=== PATIENT | female | born 1950 | race Caucasian/White ===

== ENCOUNTER → 2017-01-31 | Outpatient (CLI) | payer MEDICARE, BC ==
[~2017-01-31] MED LIST: AMLO1TAB36 PO; ATOR1TAB19 PO; BUPR150T3 PO; BYDU1INJ SC; CARV12.5 PO; CARV6.25 PO; CIPR500T89 PO; COLA100C3 PO; COUM1TAB17 PO; FENO160T10 PO; FISH5CAP PO; FLAG500T PO; FLON1SPR; LOVE0.6I2 SC; METF500T PO; METO50TA2 PO; OMEP40CA2 PO; PERC5TAB6 PO; PROP15TA PO; WARF-18 PO
--- NOTE | 2017-01-31 13:19 | REP ---
Right hand four views: There are no comparisons. There is diffuse demineralization. 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 There is moderate osteoarthritis at the thumb C-MC articulation. There is mild joint space narrowing of the MCP articulations compatible with articular cartilage atrophy. There is no cortical erosion or eburnation. There are surgical clips in the soft tissues lateral to the radial head. There is no fracture or dislocation. Impression: Osteoarthritis as described. Signed by Danny Ellis MD 01/31/2017 01:10 P
== END ==
LOC: M SMT 11:13
PROVIDERS: ATTEND Physician Assistant
DX: S63.601A Unspecified sprain of right thumb, initial encounter (principal); X58.XXXA Exposure to other specified factors, initial encounter; Y92.89 Other specified places as the place of occurrence of the external cause; Y93.9 Activity, unspecified; Y99.9 Unspecified external cause status

== ENCOUNTER → 2017-04-21 | Day surgery (SDC) | payer MEDICARE, BC ==
[~2017-04-21] VITALS: Ht 167.6 cm; Wt 81.6 kg
[~2017-04-21] MED LIST changes: +AMOX875T2 PO; +BUPIVACAINE HCL 0.25% 30 ML VIAL As Ordered ONE; +FERR325T PO; +GLYCOPYRROLATE INJ 0.2 MG/ML 2 ML VIAL As Ordered ONE; +HYDROmorphone HCL 1 MG/ML SYRINGE (J1170) IV PRN; +HYDROmorphone HCL 2 MG/ML 1ML VIAL (J1170) As Ordered ONE; +JANU25TA PO; +LIDOCAINE 2% INJ 100 MG/5 ML SDV (FOR ANES.) As Ordered ONE; +LOSA50TA20 PO; +LR 1,000 ML IV SCH; +METOCLOPRAMIDE INJ 10MG/2ML VIAL (J2765) As Ordered ONE; +METOCLOPRAMIDE INJ 10MG/2ML VIAL (J2765) IV PRN; +MIDAZOLAM INJ 2 MG/2 ML VIAL (J2250) As Ordered ONE; +MIRA3350 PO; +NEOSTIGMINE 1MG/ML 5 ML SYRINGE (J2710) As Ordered ONE; +NEPHTAB PO; +NORCO, ANEXSIA 5/325MG TABLET (HYDROcodone/ACETAMINOPHEN) PO PRN; +NORCOTAB PO; +NS 1,000 ML IV SCH; +ONDANSETRON 4MG/2ML VIAL (J2405) As Ordered ONE; +ONDANSETRON 4MG/2ML VIAL (J2405) IV PRN; +PROPOFOL 200 MG/20 ML VIAL As Ordered ONE; +RALO1TAB PO; +ROCURONIUM BROMIDE 50 MG/5 ML VIAL As Ordered ONE; +STOO100C PO; +VITA500055 PO; +WARF-23 PO; +ePHEDrine SULFATE 25 MG/5 ML(5MG/ML) SYRINGE As Ordered ONE; +fentaNYL 100 MCG/2 ML INJECTION (J3010) IV PRN; +fentaNYL 250 MCG/5 ML INJECTION (J3010) As Ordered ONE
[2017-04-21 06:26] LABS: MEAN CORPUSCULAR HEMOGLOBIN 31.9 pg (27.0-33.0); MEAN CORPUSCULAR HGB CONC 34.3 g/dl (32.0-36.5); MEAN CORPUSCULAR VOLUME 93.1 fl (80.0-96.0); RED CELL DISTRIBUTION WIDTH 13.3 % (11.5-14.5); WHITE BLOOD COUNT 6.6 K/mm3 (4.0-10.0)
[2017-04-21 06:34] LABS: INR 0.98
[2017-04-21 06:42] LABS: CALCIUM LEVEL 9.2 MG/DL (8.8-10.2); CREATININE FOR GFR 3.62 MG/DL (0.55-1.02); GLOMERULAR FILTRATION RATE 13.4 (>45); POTASSIUM SERUM 4.3 MEQ/L (3.5-5.1)
[2017-04-21 10:25] VITALS: BP 153/67
--- NOTE | 2017-04-22 07:55 | RO ---
DATE OF PROCEDURE: 04/21/2017 PREOPERATIVE DIAGNOSIS: Umbilical hernia. POSTOPERATIVE DIAGNOSIS: Umbilical hernia. PROCEDURE PERFORMED: Umbilical herniorrhaphy. SURGEON: Dr. Isiah Rodrigez ANESTHESIA: General. INDICATIONS FOR PROCEDURE: The patient is a 66-year-old woman who is undergoing continuous ambulatory peritoneal dialysis. She was noted to develop a small umbilical hernia bulge. She is now for repair. OPERATIVE PROCEDURE: The patient was placed supine on the operating table. She was placed under general endotracheal anesthesia. The patient's abdomen was prepped and draped in a sterile fashion. By palpation, the patient had an approximately 1-1.5 cm fascial defect in the center of the umbilicus. An approximately 3 cm curved incision was made down the left side of the umbilicus. The umbilical skin was elevated. The patient was found to have a very thin walled peritoneal sac protruding beneath the umbilicus. This was opened in the course of dissection and a minimal amount of residual peritoneal dialysis fluid was released. The hernia sac was dissected down to the fascia circumferentially. The patient did have an approximately 1-1.5 cm fascial defect. The peritoneum was peeled away from the overlying fascia around the edges of the wound and the peritoneum was then closed with a running suture of #3-0 Vicryl and the fascia was then approximated in a transverse orientation using interrupted simple sutures of #2-0 Ethibond. This appeared to give a nice closure of the fascial defect. Approximately 8-10 mL of 0.25% Marcaine were infiltrated about the wound. The wound was inspected for hemostasis which was ensured with the cautery. The umbilical skin was tacked down to the underlying fascia in the center with a #3-0 Vicryl. The skin edges were approximated with several buried #3-0 Vicryl sutures. The skin incision was approximated with a running subcuticular #4-0 Vicryl. Steri-Strips were applied. The umbilicus was filled with a fluffed 2x2 and covered with additional sterile gauze. The patient tolerated the procedure well without apparent complication. She was awakened in the operating room, extubated and moved to the recovery room in stable condition. [facility]PITALAnne-Marie
--- NOTE | 2017-04-24 00:24 | ECGEPIP ---
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
== END | disposition home or self-care (01) ==
LOC: M SDC 05:48
PROVIDERS: ATTEND Surgery
DX: K42.9 Umbilical hernia without obstruction or gangrene (principal); I12.0 Hypertensive chronic kidney disease with stage 5 chronic kidney disease or end stage renal disease; I48.91 Unspecified atrial fibrillation; E78.00 Pure hypercholesterolemia, unspecified; E11.9 Type 2 diabetes mellitus without complications; N18.6 End stage renal disease; K21.9 Gastro-esophageal reflux disease without esophagitis; R23.3 Spontaneous ecchymoses; M12.9 Arthropathy, unspecified; M81.0 Age-related osteoporosis without current pathological fracture; R06.09 Other forms of dyspnea; Z88.2 Allergy status to sulfonamides; Z79.899 Other long term (current) drug therapy; Z79.01 Long term (current) use of anticoagulants; Z79.84 Long term (current) use of oral hypoglycemic drugs; Z90.710 Acquired absence of both cervix and uterus; Z78.0 Asymptomatic menopausal state; Z99.2 Dependence on renal dialysis
CPT/HCPCS: 36415; 49585; 80048; 85027; 85610; 88302; 93005; J0690; J1170; J2250; J2405; J2710; J2765; J3010

== ENCOUNTER 2017-05-01 18:50 | Day surgery (SDC) | payer MEDICARE, BC ==
[~2017-05-01] VITALS: Ht 167.6 cm; Wt 85.0 kg
[2017-05-01 18:42] VITALS: BP 142/60
[~2017-05-01 18:50] MED LIST changes: -AMLO1TAB36 PO; +AMLO1TAB37 PO; -BUPIVACAINE HCL 0.25% 30 ML VIAL As Ordered ONE; +CIPR-249 PO; -CIPR500T89 PO; -COLA100C3 PO; +COLA100C5 PO; +FERR1TAB8 PO; -FERR325T PO; -GLYCOPYRROLATE INJ 0.2 MG/ML 2 ML VIAL As Ordered ONE; -HYDROmorphone HCL 1 MG/ML SYRINGE (J1170) IV PRN; -HYDROmorphone HCL 2 MG/ML 1ML VIAL (J1170) As Ordered ONE; -LIDOCAINE 2% INJ 100 MG/5 ML SDV (FOR ANES.) As Ordered ONE; -LR 1,000 ML IV SCH; -METF500T PO; +METF500T13 PO; -METO50TA2 PO; +METO50TA7 PO; -METOCLOPRAMIDE INJ 10MG/2ML VIAL (J2765) As Ordered ONE; -METOCLOPRAMIDE INJ 10MG/2ML VIAL (J2765) IV PRN; -MIDAZOLAM INJ 2 MG/2 ML VIAL (J2250) As Ordered ONE; -NEOSTIGMINE 1MG/ML 5 ML SYRINGE (J2710) As Ordered ONE; -NORCO, ANEXSIA 5/325MG TABLET (HYDROcodone/ACETAMINOPHEN) PO PRN; -NS 1,000 ML IV SCH; -ONDANSETRON 4MG/2ML VIAL (J2405) As Ordered ONE; -ONDANSETRON 4MG/2ML VIAL (J2405) IV PRN; +PERC5TAB12 PO; -PERC5TAB6 PO; -PROPOFOL 200 MG/20 ML VIAL As Ordered ONE; -ROCURONIUM BROMIDE 50 MG/5 ML VIAL As Ordered ONE; -ePHEDrine SULFATE 25 MG/5 ML(5MG/ML) SYRINGE As Ordered ONE; -fentaNYL 100 MCG/2 ML INJECTION (J3010) IV PRN; -fentaNYL 250 MCG/5 ML INJECTION (J3010) As Ordered ONE
[2017-05-01 19:52] LABS: CALCIUM LEVEL 9.1 MG/DL (8.8-10.2); CREATININE FOR GFR 3.18 MG/DL (0.55-1.02); GLOMERULAR FILTRATION RATE 15.5 (>45); POTASSIUM SERUM 4.7 MEQ/L (3.5-5.1)
[2017-05-01] MEDS ORDERED: FERROUS SULFATE 325MG TAB PO SCH (21:00)
[2017-05-01] MEDS ORDERED: SITagliptin 50 MG TAB (JANUVIA) PO SCH (21:00)
[2017-05-01] MEDS ORDERED: ATORVASTATIN 10 MG TAB PO SCH (21:00)
[2017-05-01] MEDS: AUGMENTIN 875 MG TAB PO SCH (21:00)
[2017-05-01] MEDS ORDERED: RALOXIFENE HCL (EVISTA) 60 MG TAB PO SCH (21:00)
[2017-05-01] MEDS ORDERED: FLUTICASONE PROP 0.05% NASAL SPRAY 16 GM (FLONASE) PRN (21:45)
[2017-05-01] MEDS ORDERED: NORCO, ANEXSIA 5/325MG TABLET (HYDROcodone/ACETAMINOPHEN) PO PRN (21:45)
[2017-05-01] MEDS ORDERED: MIRALAX *UNIT DOSE* 17GM PACKET PO PRN (21:45)
[2017-05-01 22:00] VITALS: BP 142/70
[2017-05-01] MEDS ORDERED: zolPIDEM TARTRATE 5 MG TAB PO ONE (22:45)
[2017-05-01] MEDS ORDERED: DICL1GEL3 TD (23:17)
[2017-05-01] MEDS ORDERED: RENATAB5 PO (23:17)
[2017-05-01] MEDS ORDERED: HYDR-3713 PO (23:17)
[2017-05-01] MEDS ORDERED: TYLE1TAB5 PO (23:17)
[2017-05-01] MEDS: CARVedilol 12.5 MG TAB PO SCH (23:48)
[2017-05-01] MEDS: LOSARTAN 50 MG TAB PO SCH (23:48)
[2017-05-02] MEDS: AUGMENTIN 875 MG TAB PO SCH ×2 (00:16→09:12)
[2017-05-02] MEDS: PROPAFENONE 150 MG TAB PO SCH ×2 (00:17→09:10)
[2017-05-02 06:00] VITALS: BP 140/65
[2017-05-02 06:30] LABS: INR 1.43
[2017-05-02 06:35] LABS: CALCIUM LEVEL 9.5 MG/DL (8.8-10.2); CREATININE FOR GFR 3.29 MG/DL (0.55-1.02); GLOMERULAR FILTRATION RATE 14.9 (>45); POTASSIUM SERUM 4.5 MEQ/L (3.5-5.1)
[2017-05-02] MEDS ORDERED: fentaNYL 100 MCG/2 ML INJECTION (J3010) As Ordered ONE (06:46)
[2017-05-02] MEDS ORDERED: MIDAZOLAM INJ 2 MG/2 ML VIAL (J2250) As Ordered ONE (06:46)
[2017-05-02] MEDS ORDERED: PROPOFOL 200 MG/20 ML VIAL As Ordered ONE (06:48)
[2017-05-02] MEDS ORDERED: LIDOCAINE 1% SDV INJ 30 ML VIAL As Ordered ONE (07:15)
[2017-05-02] MEDS ORDERED: BUPIVACAINE HCL 0.5% 30 ML VIAL As Ordered ONE (07:15)
[2017-05-02] MEDS ORDERED: HEPARIN SOD (PORCINE) 5000 UNITS/ML VIAL As Ordered ONE (07:32)
--- NOTE | 2017-05-02 08:07 | REP ---
Clinical: Intraoperative catheter placement. Technique: Intraoperative fluoroscopic imaging. Findings: Single intraoperative fluoroscopic image demonstrates a double-lumen catheter via right subclavian approach extending into the right atrium. Total fluoroscopic time 6 seconds. Impression: Double-lumen catheter with tip in the right atrium. Signed by Vipul Styles MD 05/02/2017 07:58 A
[2017-05-02] MEDS ORDERED: NS 1,000 ML IV SCH (08:30)
[2017-05-02] MEDS ORDERED: ONDANSETRON 4MG/2ML VIAL (J2405) IV PRN (08:30)
[2017-05-02 09:00] VITALS: BP 162/78
[2017-05-02] MEDS ORDERED: LOSARTAN 50 MG TAB PO SCH (09:00)
[2017-05-02] MEDS ORDERED: CARVedilol 12.5 MG TAB PO SCH (09:00)
[2017-05-02] MEDS ORDERED: NEPHRO-VIT TAB (NEPHROCAPS) PO SCH (09:00)
[2017-05-02] MEDS ORDERED: AUGMENTIN 875 MG TAB PO SCH (09:00)
[2017-05-02] MEDS ORDERED: buPROPion **XL** TABLET 150MG (WELLBUTRIN XL) PO SCH (09:00)
[2017-05-02] MEDS ORDERED: DOCUSATE SODIUM 100 MG CAP PO SCH (09:00)
[2017-05-02] MEDS ORDERED: OMEPRAZOLE 20 MG CAP PO SCH (09:00)
[2017-05-02] MEDS ORDERED: PROPAFENONE 150 MG TAB PO SCH (09:00)
[2017-05-02] MEDS ORDERED: RALOXIFENE HCL (EVISTA) 60 MG TAB PO SCH (09:00)
[2017-05-02] MEDS: LOSARTAN 50 MG TAB PO SCH (09:11)
[2017-05-02 09:12] VITALS: BP 162/78
[2017-05-02] MEDS: CARVedilol 12.5 MG TAB PO SCH (09:12)
[2017-05-02] MEDS ORDERED: ATORVASTATIN 10 MG TAB PO SCH (21:00)
--- NOTE | 2017-05-03 14:12 | RO ---
DATE OF PROCEDURE: 05/02/2017 PREOPERATIVE DIAGNOSIS: End stage renal disease, dysfunctional right radiocephalic arteriovenous fistula. POSTOPERATIVE DIAGNOSIS: End stage renal disease, dysfunctional right radiocephalic arteriovenous fistula. PROCEDURE: Ultrasound and fluoroscopic guided right internal jugular vein 19 cm Tip-to-Cuff PermCath insertion. SURGEON: Antony Barkley MD ELECTRO PLATER: None. ANESTHESIA: Local MAC with 10 mL of 1% lidocaine mixed with 0.50% Marcaine. INDICATION: Patient is a 66-year-old female with end stage renal disease who underwent umbilical hernia repair and removal of her peritoneal dialysis catheter which was her longstanding access for dialysis. The patient also has a right radiocephalic arteriovenous fistula which was attempted to be used multiple times without success. The patient now requires placement of a PermaCath for hemodialysis access and will undergo evaluation and treatment of her fistula for future use. Risks, benefits and alternative treatment options were discussed with the patient. Alternative treatment options included but were not limited to no intervention. Risks includes but were not limited to infection, bleeding, pneumothorax, hemothorax, possible need for open surgical intervention, cerebrovascular accident, myocardial infarction, pulmonary embolus, deep vein thrombosis (DVT), loss of limb, loss of life and poor outcome. The patient understands, accepts these risks and consents to proceed. ESTIMATED BLOOD LOSS: 25 mL. IV FLUID: 150 mL. HEPARIN: None. COMPLICATIONS: None. DRAINS: None. SPECIMENS: None. IMPLANTS: Right internal jugular vein 19 cm Tip-to-Cuff PermaCath. DESCRIPTION OF PROCEDURE: Patient was taken to the operating room, placed supine on the operating room table and the right neck and chest region were prepped and draped in a standard surgical fashion. After, ultrasound was used to evaluate the right internal vein, which was noted to be easily compressible, widely patent and free of thrombus. The ultrasound was then used to guide cannulation of the right internal jugular vein with a micropuncture needle after anesthetizing the overlying skin with 1% lidocaine. The micropuncture wire was advanced through the micropuncture needle, which was upsized to a micropuncture sheath. An Amplatz wire was advanced through the micropuncture sheath, which was used to sequentially dilate the internal jugular vein under fluoroscopic guidance. A 19 cm Tip-to-Cuff catheter had been tunneled through a puncture wound in the chest and brought out a puncture wound at the right internal jugular vein entry site after anesthetizing the overlying skin with 1% lidocaine mixed with 0.50% Marcaine. The catheter was then advanced through the introducer sheath which had been placed under fluoroscopic guidance. Catheter was positioned with the tip in the superior vena cava right atrial junction. Both ports of the catheter were aspirated and noted to aspirate easily and then flushed with heparinized saline. The catheter was then secured to the anterior chest wall using #2-0 Prolene suture. The puncture wound in the right neck was closed using a #3-0 Monocryl suture in an inverted interrupted fashion. Steri-Strips and dressings were applied. The patient tolerated the procedure well. All instrument, sponge and needle counts were correct at the end of the case. There were no complications. Dr. Barkley was present for and directed the entire case. The patient was transferred to the recovery room and then subsequently to the floor and then discharged to the dialysis center for outpatient dialysis. The PermaCath is stable for use for hemodialysis access. RADIOLOGIC SUPERVISION AND INTERPRETATION: The initial ultrasound of the right internal jugular vein showed the right internal jugular vein to be widely patent, easily compressible and free of thrombus. Ultrasound guidance was performed with a hard copy image preserved. Ultrasound guidance was used for cannulation of the right internal jugular vein with a hard copy image preserved. The final fluoroscopic image showed the catheter to be in good position and good alignment with no pneumo or hemothorax. The catheter is stable for use for hemodialysis access.
== END 2017-05-02 10:05 | disposition home or self-care (01) ==
LOC: M SDC 18:50 → M MSPAV 19:00 → M SDC 05-02 10:05
PROVIDERS: ATTEND Surgery Vascular Surgery
DX: N18.6 End stage renal disease (principal); T82.510A Breakdown (mechanical) of surgically created arteriovenous fistula, initial encounter; I12.0 Hypertensive chronic kidney disease with stage 5 chronic kidney disease or end stage renal disease; E78.5 Hyperlipidemia, unspecified; I48.91 Unspecified atrial fibrillation; E11.9 Type 2 diabetes mellitus without complications; J44.9 Chronic obstructive pulmonary disease, unspecified; K21.9 Gastro-esophageal reflux disease without esophagitis; Z88.2 Allergy status to sulfonamides; Z79.899 Other long term (current) drug therapy; Z79.01 Long term (current) use of anticoagulants
CPT/HCPCS: 36415; 36558; 76000; 80048; 85610; C1750; C1769; J2250; J3010

== ENCOUNTER → 2017-07-25 | Outpatient (CLI) | payer MEDICARE, BC ==
[~2017-07-25] MED LIST changes: +DICL1GEL3 TD; +HYDR-3713 PO; +ISOVUE-300 61% 50ML VIAL (Q9967) As Ordered ONE; +MIDAZOLAM INJ 2 MG/2 ML VIAL (J2250) As Ordered ONE; +RENATAB5 PO; +TYLE1TAB5 PO; +fentaNYL 100 MCG/2 ML INJECTION (J3010) As Ordered ONE
--- NOTE | 2017-08-09 14:00 | REPKIM ---
DATE OF PROCEDURE: 07/25/2017 ATTENDING SURGEON: Dr. Leana Barkley CONVERTING TECHNICIAN: Kaitlynn Whelan and Patricia Schulz PREOPERATIVE DIAGNOSIS: End-stage renal disease. Functioning peritoneal dialysis catheter. Dysfunctional right radiocephalic arteriovenous fistula. Right internal jugular vein PermaCath. POSTOPERATIVE DIAGNOSIS: End-stage renal disease. Functioning peritoneal dialysis catheter. Dysfunctional right radiocephalic arteriovenous fistula. Right internal jugular vein PermaCath. PROCEDURE: Right radiocephalic arteriovenous fistulogram. Right internal jugular vein PermaCath removal. INDICATION: Patient is a 67-year-old female with right radiocephalic arteriovenous fistula which was dysfunctional and unusable during the time that her peritoneal dialysis catheter was not being used and she underwent placement of a right internal jugular vein PermaCath. Patient now follows up for fistulogram due to dysfunction of her right radiocephalic arteriovenous fistula and removal of her right internal jugular vein PermaCath as her Pedi Catheter is functioning well. Risks, benefits, and alternative treatment options were discussed with the patient. ANESTHESIA: Was local with sedation with 2 mg Versed, 0 mg of Fentanyl, and 1 mL of 2% lidocaine. CONTRAST: 2 mL. Heparin - none. COMPLICATIONS: None. DRAINS: None. SPECIMENS: None. IMPLANTS: None. PROCEDURE: Patient was taken to the angiography suite, placed supine on the angiography room table and the right radiocephalic arteriovenous fistula was cannulated with an angio catheter after anesthetizing the overlying skin with 1% lidocaine. A fistulogram was performed showing no intervention was required and the catheter was removed and manual compression applied for hemostasis. The patient is currently using her peritoneal dialysis catheter and no longer requires the right internal jugular vein PermCath which was then removed with manual traction and hemostasis was obtained through pressure. Patient tolerated the procedure well. All instruments, sponge, and needle counts were correct at the end of the case. There were no complications. Dr. Barkley was present for and directed the entire case. The patient was transferred to the holding area and subsequently discharged. RADIOLOGIC SUPERVISION INTERPRETATION: The fistulogram showed the cephalic vein to be patent from the wrist to the antecubital fossa where there was dual outflow into the upper arm essentially. No intervention was required. The right internal jugular vein PermaCath was removed.
== END | disposition home or self-care (01) ==
LOC: M IRPRO 09:39
PROVIDERS: ATTEND Surgery Vascular Surgery
DX: T82.590A Other mechanical complication of surgically created arteriovenous fistula, initial encounter (principal); Z45.2 Encounter for adjustment and management of vascular access device; N18.6 End stage renal disease
CPT/HCPCS: 36589; 36901; C1894; J2250; J3010; Q9967

== ENCOUNTER → 2017-08-15 | Outpatient (REF) | payer MEDICARE, BC ==
[~2017-08-15] MED LIST changes: -ISOVUE-300 61% 50ML VIAL (Q9967) As Ordered ONE; -MIDAZOLAM INJ 2 MG/2 ML VIAL (J2250) As Ordered ONE; -fentaNYL 100 MCG/2 ML INJECTION (J3010) As Ordered ONE
== END ==
LOC: M LAB REF 17:03
PROVIDERS: ATTEND Family Medicine
DX: Z12.4 Encounter for screening for malignant neoplasm of cervix (principal)
CPT/HCPCS: 87624; G0123

== ENCOUNTER → 2017-09-18 | Outpatient (REF) | payer MEDICARE, BC | LOC: M LAB REF 09:55 | PROVIDERS: ATTEND Surgery | DX: C44.629 Squamous cell carcinoma of skin of left upper limb, including shoulder (principal) ==

== ENCOUNTER 2017-10-31 09:20 | Day surgery (SDC) | payer MEDICARE, BC ==
[2017-10-31] MEDS: LR 1,000 ML IV (09:30)
[2017-10-31] MEDS ORDERED: LIDOCAINE 2% INJ 100 MG/5 ML SDV (FOR ANES.) As Ordered (12:15)
[2017-10-31] MEDS ORDERED: PROPOFOL 500 MG/50 ML VIAL As Ordered (12:15)
== END 2017-10-31 13:11 | disposition home or self-care (01) ==
LOC: M OPP 13:11
DX: Z12.11 Encounter for screening for malignant neoplasm of colon (principal); D12.2 Benign neoplasm of ascending colon; K21.9 Gastro-esophageal reflux disease without esophagitis; K22.8 Other specified diseases of esophagus; E11.9 Type 2 diabetes mellitus without complications; I48.91 Unspecified atrial fibrillation; I12.0 Hypertensive chronic kidney disease with stage 5 chronic kidney disease or end stage renal disease; M19.90 Unspecified osteoarthritis, unspecified site; F32.9 Major depressive disorder, single episode, unspecified; N18.6 End stage renal disease; M81.0 Age-related osteoporosis without current pathological fracture; Z79.899 Other long term (current) drug therapy; Z88.2 Allergy status to sulfonamides; Z87.39 Personal history of other diseases of the musculoskeletal system and connective tissue; Z87.19 Personal history of other diseases of the digestive system; Z78.0 Asymptomatic menopausal state
CPT/HCPCS: 45380

== ENCOUNTER 2017-11-06 10:55 | Inpatient (IN) | payer MEDICARE, BC ==
[2017-11-06] MEDS: OMEPRAZOLE 20 MG CAP PO (09:00)
[2017-11-06] MEDS: MIRALAX *UNIT DOSE* 17GM PACKET PO (09:00)
[~2017-11-06 10:55] MED LIST changes: -AMLO1TAB37 PO; -AMOX875T2 PO; -ATOR1TAB19 PO; -BUPR150T3 PO; -BYDU1INJ SC; -CARV12.5 PO; -CARV6.25 PO; -CIPR-249 PO; -COLA100C5 PO; -COUM1TAB17 PO; -DICL1GEL3 TD; +DOCUSATE SODIUM 100 MG CAP PO; -FENO160T10 PO; -FERR1TAB8 PO; -FISH5CAP PO; -FLAG500T PO; -FLON1SPR; -HYDR-3713 PO; -JANU25TA PO; -LOSA50TA20 PO; -LOVE0.6I2 SC; -METF500T13 PO; -METO50TA7 PO; -MIRA3350 PO; -NEPHTAB PO; -NORCOTAB PO; -OMEP40CA2 PO; -PERC5TAB12 PO; -PROP15TA PO; -RALO1TAB PO; -RENATAB5 PO; -STOO100C PO; -TYLE1TAB5 PO; -VITA500055 PO; -WARF-18 PO; -WARF-23 PO
[2017-11-06] MEDS ORDERED: NS 1,000 ML IV ×2 (12:00→14:30)
[2017-11-06] MEDS ORDERED: MORPHINE 4 MG/ML 1ML SYRINGE IV (12:00)
[2017-11-06] MEDS: MORPHINE 4 MG/ML 1ML SYRINGE IM (12:15)
[2017-11-06] MEDS: MORPHINE 4 MG/ML 1ML SYRINGE IV (12:45)
[2017-11-06 13:03] LABS: BASO # 0.1 10^3/uL (0.0-0.2); BASO % 0.7 % (0.0-1.0); EOS # 0.1 10^3/uL (0.0-0.50); EOS % 0.7 % (0.0-3.0); HEMOGLOBIN 10.5 g/dl (12.0-16.0); IMMATURE GRANULOCYTE % 0.3 % (0-0); LYMPH # 0.8 10^3/uL (1.5-4.5); LYMPH % 8.3 % (24.0-44.0); MEAN CORPUSCULAR HEMOGLOBIN 31.6 pg (27.0-33.0); MEAN CORPUSCULAR HGB CONC 33.9 g/dl (32.0-36.5); MEAN CORPUSCULAR VOLUME 93.4 fl (80.0-96.0); MONO # 0.5 10^3/uL (0.0-0.8); MONO % 5.4 % (0.0-5.0); NEUTROPHILS % 84.6 % (36.0-66.0); PLATELET COUNT, AUTOMATED 226 10^3/uL (150-450); RED BLOOD COUNT 3.32 10^6/uL (4.00-5.40); RED CELL DISTRIBUTION WIDTH 12.5 % (11.5-14.5); WHITE BLOOD COUNT 9.5 10^3/uL (4.0-10.0)
[2017-11-06 13:09] LABS: INR 1.46; PROTHROMBIN TIME 18.1 SECONDS (12.4-14.5)
[2017-11-06 13:20] LABS: ANION GAP 7 MEQ/L (8-16); BLOOD UREA NITROGEN 24 MG/DL (7-18); CALCIUM LEVEL 8.6 MG/DL (8.8-10.2); CARBON DIOXIDE LEVEL 27 MEQ/L (21-32); CHLORIDE LEVEL 107 MEQ/L (98-107); CREATININE FOR GFR 2.76 MG/DL (0.55-1.02); GLOMERULAR FILTRATION RATE 18.2 (>45); GLUCOSE, FASTING 141 MG/DL (80-110); POTASSIUM SERUM 4.6 MEQ/L (3.5-5.1); SODIUM LEVEL 141 MEQ/L (136-145)
[2017-11-06] MEDS ORDERED: fentaNYL 100 MCG/2 ML INJECTION (J3010) As Ordered (14:12)
[2017-11-06] MEDS ORDERED: MIDAZOLAM INJ 2 MG/2 ML VIAL (J2250) As Ordered (14:12)
[2017-11-06] MEDS ORDERED: PROPOFOL 200 MG/20 ML VIAL As Ordered (14:12)
[2017-11-06] MEDS ORDERED: LIDOCAINE 2% INJ 100 MG/5 ML SDV (FOR ANES.) As Ordered (14:12)
[2017-11-06] MEDS ORDERED: DEXTROSE 50% 50 ML SYRINGE IV (14:30)
[2017-11-06] MEDS ORDERED: FLUTICASONE PROP 0.05% NASAL SPRAY 16 GM (FLONASE) (14:30)
[2017-11-06] MEDS ORDERED: ACETAMINOPHEN TAB 650MG DOSE (2X325MG) PO (14:30)
[2017-11-06] MEDS ORDERED: GLUCAGON FOR INJ 1 MG VIAL (J1610) SC (14:30)
[2017-11-06] MEDS ORDERED: GLUCOSE 4 GM CHEW TABLET PO (14:30)
[2017-11-06] MEDS ORDERED: KETAMINE HCL 200 MG/20 ML VIAL As Ordered (14:53)
[2017-11-06] MEDS ORDERED: hydrALAZINE INJ 20 MG/ML VIAL IV (15:00)
[2017-11-06] MEDS ORDERED: ONDANSETRON 4MG/2ML VIAL (J2405) As Ordered (15:15)
[2017-11-06] MEDS ORDERED: HYDROmorphone HCL 1 MG/ML SYRINGE (J1170) As Ordered (15:50)
[2017-11-06] MEDS: HYDROmorphone HCL 1 MG/ML SYRINGE (J1170) IV ×5 (15:55→16:15)
[2017-11-06] MEDS ORDERED: PERCOCET 5MG/325MG TAB PO (16:15)
[2017-11-06] MEDS: NS 1,000 ML IV (16:15)
[2017-11-06] MEDS ORDERED: ONDANSETRON 4MG/2ML VIAL (J2405) IV (16:15)
[2017-11-06] MEDS: fentaNYL 100 MCG/2 ML INJECTION (J3010) IV ×4 (16:25→16:40)
[2017-11-06 17:15] LABS: CK-MB VALUE MASS 2.2 NG/ML (0.0-3.6); CPK CREATINE PHOSPHOKINASE 171 U/L (26-192); MB/CK RELATIVE INDEX 1.28 (< OR =4); TROPONIN I < 0.02 NG/ML (< 0.10)
[2017-11-06] MEDS ORDERED: HumaLOG INSULIN (NovoLOG) PER UNIT SC (18:00)
[2017-11-06] MEDS: MORPHINE 2 MG/ML 1ML SYRINGE IV ×3 (19:04→23:29)
[2017-11-06 20:31] LABS: BEDSIDE GLUCOSE 107 MG/DL (80-115)
[2017-11-06] MEDS: HumaLOG INSULIN (NovoLOG) PER UNIT SC (21:00)
[2017-11-06] MEDS: ATORVASTATIN 10 MG TAB PO (21:13)
[2017-11-06 21:14] LABS: CK-MB VALUE MASS 2.5 NG/ML (0.0-3.6); CPK CREATINE PHOSPHOKINASE 213 U/L (26-192); MB/CK RELATIVE INDEX 1.17 (< OR =4); TROPONIN I < 0.02 NG/ML (< 0.10)
[2017-11-06] MEDS: HEPARIN SOD (PORCINE) 5000 UNITS/ML VIAL SC (21:14)
[2017-11-06] MEDS: SENOKOT S TAB PO (21:14)
[2017-11-06] MEDS: LOSARTAN 50 MG TAB PO (21:15)
[2017-11-06] MEDS: CARVedilol 12.5 MG TAB PO (21:15)
[2017-11-06] MEDS: FERROUS SULFATE 325MG TAB PO (21:15)
[2017-11-06] MEDS: LACTOBACILLUS ACIDOPHILUS CAP (BACID) PO (21:16)
[2017-11-06] MEDS: PROPAFENONE 150 MG TAB PO (22:16)
[2017-11-07 00:37] LABS: APPEARANCE, BODY FLUID HAZY (CLEAR); BF DIFF IF INDICATED? YES (NO); BF MONONUCLEAR CELL % 94.4 % (0-0); BF POLYMORPHONUCLEAR CELL % 5.6 % (0-0); PERITONEAL DIALYSATE FL COLOR PALE YELLOW (COLORLESS); RBC BODY FLUID < 2 10^3/uL (<2); SOURCE, BODY FLUID PERITONEAL DIALYSATE; WBC BODY FLUID 90 /uL (0-10)
[2017-11-07] MEDS: MORPHINE 2 MG/ML 1ML SYRINGE IV ×5 (01:38→23:00)
[2017-11-07 01:55] LABS: TYPE AND SCREEN 1
[2017-11-07] MEDS ORDERED: MORPHINE 4 MG/ML 1ML SYRINGE IV (04:45)
[2017-11-07] MEDS: HEPARIN SOD (PORCINE) 5000 UNITS/ML VIAL SC ×3 (06:00→22:28)
[2017-11-07] MEDS ORDERED: HYDROmorphone HCL 1 MG/ML SYRINGE (J1170) As Ordered (06:32)
[2017-11-07] MEDS: HYDROmorphone HCL 1 MG/ML SYRINGE (J1170) IV (06:37)
[2017-11-07 06:39] LABS: HEMATOCRIT 26.4 % (36.0-47.0); HEMOGLOBIN 8.8 g/dl (12.0-16.0); MEAN CORPUSCULAR HEMOGLOBIN 31.8 pg (27.0-33.0); MEAN CORPUSCULAR HGB CONC 33.3 g/dl (32.0-36.5); MEAN CORPUSCULAR VOLUME 95.3 fl (80.0-96.0); PLATELET COUNT, AUTOMATED 194 10^3/uL (150-450); RED BLOOD COUNT 2.77 10^6/uL (4.00-5.40); RED CELL DISTRIBUTION WIDTH 12.4 % (11.5-14.5); WHITE BLOOD COUNT 6.4 10^3/uL (4.0-10.0)
[2017-11-07 06:54] LABS: INR 1.22; PROTHROMBIN TIME 15.7 SECONDS (12.4-14.5)
[2017-11-07 06:58] LABS: ALBUMIN 2.6 GM/DL (3.2-5.2); ANION GAP 5 MEQ/L (8-16); BLOOD UREA NITROGEN 20 MG/DL (7-18); CALCIUM LEVEL 8.6 MG/DL (8.8-10.2); CARBON DIOXIDE LEVEL 29 MEQ/L (21-32); CHLORIDE LEVEL 106 MEQ/L (98-107); CREATININE FOR GFR 2.69 MG/DL (0.55-1.02); GLOMERULAR FILTRATION RATE 18.8 (>45); GLUCOSE, FASTING 106 MG/DL (80-110); MAGNESIUM LEVEL 1.9 MG/DL (1.8-2.4); PHOSPHORUS LEVEL 2.5 MG/DL (2.5-4.9); SODIUM LEVEL 140 MEQ/L (136-145)
[2017-11-07] MEDS: HumaLOG INSULIN (NovoLOG) PER UNIT SC ×5 (07:30→20:42)
[2017-11-07] MEDS ORDERED: ceFAZolin 1GM INJ (J0690 PER 500MG) As Ordered (07:34)
[2017-11-07] MEDS ORDERED: PROPOFOL 500 MG/50 ML VIAL As Ordered (08:10)
[2017-11-07] MEDS ORDERED: fentaNYL 100 MCG/2 ML INJECTION (J3010) As Ordered (08:10)
[2017-11-07] MEDS ORDERED: PANTOPRAZOLE 40MG TAB (PROTONIX) PO (09:00)
[2017-11-07] MEDS ORDERED: LIDOCAINE 2% INJ 100 MG/5 ML SDV (FOR ANES.) As Ordered (10:10)
[2017-11-07] MEDS ORDERED: HYDROmorphone HCL 2 MG/ML 1ML VIAL (J1170) As Ordered (10:12)
[2017-11-07 11:37] LABS: BEDSIDE GLUCOSE 119 MG/DL (80-115)
[2017-11-07] MEDS ORDERED: DESFLURANE 240 ML INHALANT As Ordered (13:23)
[2017-11-07] MEDS ORDERED: ONDANSETRON 4MG/2ML VIAL (J2405) As Ordered (13:26)
[2017-11-07] MEDS ORDERED: MIDAZOLAM INJ 2 MG/2 ML VIAL (J2250) As Ordered (13:55)
[2017-11-07] MEDS ORDERED: PROPOFOL 200 MG/20 ML VIAL As Ordered (14:00)
[2017-11-07] MEDS ORDERED: LABETALOL HCL 100 MG/20 ML VIAL As Ordered ×2 (14:09→14:43)
[2017-11-07] MEDS: NS 1,000 ML IV (14:29)
[2017-11-07] MEDS: LABETALOL HCL 100 MG/20 ML VIAL IV ×2 (14:50→14:55)
[2017-11-07 14:51] LABS: BEDSIDE GLUCOSE 100 MG/DL (80-115)
[2017-11-07] MEDS ORDERED: ONDANSETRON 4MG/2ML VIAL (J2405) IV (15:00)
[2017-11-07] MEDS: buPROPion **XL** TABLET 150MG (WELLBUTRIN XL) PO (15:00)
[2017-11-07] MEDS ORDERED: fentaNYL 100 MCG/2 ML INJECTION (J3010) IV (15:00)
[2017-11-07] MEDS ORDERED: PERCOCET 5MG/325MG TAB PO (15:00)
[2017-11-07] MEDS ORDERED: MEPERIDINE INJ 25 MG/ML VIAL (J2175) IV (15:00)
[2017-11-07] MEDS: LOSARTAN 50 MG TAB PO ×2 (15:00→20:49)
[2017-11-07] MEDS ORDERED: METOCLOPRAMIDE INJ 10MG/2ML VIAL (J2765) IV (15:00)
[2017-11-07] MEDS: PROPAFENONE 150 MG TAB PO ×2 (15:00→20:46)
[2017-11-07] MEDS: LACTOBACILLUS ACIDOPHILUS CAP (BACID) PO ×2 (15:00→20:46)
[2017-11-07] MEDS: SENOKOT S TAB PO ×2 (15:00→20:46)
[2017-11-07] MEDS: MIRALAX *UNIT DOSE* 17GM PACKET PO (15:00)
[2017-11-07] MEDS: CARVedilol 12.5 MG TAB PO ×2 (15:00→20:47)
[2017-11-07] MEDS: OMEPRAZOLE 20 MG CAP PO (15:00)
[2017-11-07] MEDS ORDERED: hydrALAZINE INJ 20 MG/ML VIAL As Ordered (15:40)
[2017-11-07] MEDS: hydrALAZINE INJ 20 MG/ML VIAL IV ×2 (15:45→15:50)
[2017-11-07 17:14] LABS: BEDSIDE GLUCOSE 129 MG/DL (80-115)
[2017-11-07] MEDS ORDERED: oxyCODONE 5MG TAB PO (17:15)
[2017-11-07] MEDS: cloNIDine 0.2 MG TAB PO (18:21)
[2017-11-07] MEDS: NITROGLYCERIN 2% OINT 1 GM *U/D* PKT TOP ×2 (18:21→22:29)
[2017-11-07] MEDS: ACETAMINOPHEN TAB 650MG DOSE (2X325MG) PO (18:54)
[2017-11-07] MEDS: ATORVASTATIN 10 MG TAB PO (20:46)
[2017-11-07] MEDS: FERROUS SULFATE 325MG TAB PO (20:46)
[2017-11-07] MEDS: oxyCODONE 5MG TAB PO (20:49)
[2017-11-07 20:59] LABS: BEDSIDE GLUCOSE 175 MG/DL (80-115)
[2017-11-07] MEDS: ACETAMINOPHEN 500 MG TAB PO (22:28)
[2017-11-08] MEDS: CEFAZOLIN SOD IV ×3 (00:31→23:51)
[2017-11-08] MEDS: DILUENT IV ×3 (00:31→23:51)
[2017-11-08] MEDS: NITROGLYCERIN 2% OINT 1 GM *U/D* PKT TOP ×2 (02:40→06:41)
[2017-11-08] MEDS: MORPHINE 2 MG/ML 1ML SYRINGE IV ×2 (02:44→06:33)
[2017-11-08] MEDS: HEPARIN SOD (PORCINE) 5000 UNITS/ML VIAL SC ×3 (06:35→21:06)
[2017-11-08] MEDS: ACETAMINOPHEN 500 MG TAB PO ×3 (06:40→21:07)
[2017-11-08] MEDS ORDERED: MIRALAX *UNIT DOSE* 17GM PACKET PO (07:15)
[2017-11-08] MEDS: oxyCODONE 5MG TAB PO ×3 (07:47→18:30)
[2017-11-08] MEDS: HumaLOG INSULIN (NovoLOG) PER UNIT SC ×4 (08:10→21:00)
[2017-11-08] MEDS: MORPHINE 4 MG/ML 1ML SYRINGE IV ×4 (08:10→21:08)
[2017-11-08 08:11] LABS: BEDSIDE GLUCOSE 205 MG/DL (80-115)
[2017-11-08] MEDS: MIRALAX *UNIT DOSE* 17GM PACKET PO (08:11)
[2017-11-08] MEDS: PROPAFENONE 150 MG TAB PO ×2 (08:11→21:10)
[2017-11-08] MEDS: SENOKOT S TAB PO ×2 (08:12→21:10)
[2017-11-08] MEDS: LACTOBACILLUS ACIDOPHILUS CAP (BACID) PO ×2 (08:12→21:09)
[2017-11-08] MEDS: VITAMIN D 1,000 INTERNATIONAL UNITS TABLET PO (08:12)
[2017-11-08] MEDS: OMEPRAZOLE 20 MG CAP PO (08:13)
[2017-11-08] MEDS: buPROPion **XL** TABLET 150MG (WELLBUTRIN XL) PO (08:16)
[2017-11-08] MEDS: CARVedilol 12.5 MG TAB PO ×2 (08:16→21:00)
[2017-11-08] MEDS: LOSARTAN 50 MG TAB PO ×2 (08:16→21:00)
[2017-11-08 10:31] LABS: HEMATOCRIT 26.1 % (36.0-47.0); HEMOGLOBIN 8.6 g/dl (12.0-16.0); MEAN CORPUSCULAR HEMOGLOBIN 32.2 pg (27.0-33.0); MEAN CORPUSCULAR VOLUME 97.8 fl (80.0-96.0); PLATELET COUNT, AUTOMATED 184 10^3/uL (150-450); RED BLOOD COUNT 2.67 10^6/uL (4.00-5.40); RED CELL DISTRIBUTION WIDTH 12.6 % (11.5-14.5); WHITE BLOOD COUNT 11.1 10^3/uL (4.0-10.0)
[2017-11-08 10:37] LABS: BASO # 0.1 10^3/uL (0.0-0.2); BASO % 0.5 % (0.0-1.0); EOS # 0.1 10^3/uL (0.0-0.50); EOS % 0.5 % (0.0-3.0); IMMATURE GRANULOCYTE % 0.4 % (0-0); LYMPH # 0.8 10^3/uL (1.5-4.5); LYMPH % 7.3 % (24.0-44.0); NEUTROPHILS # 9.1 10^3/uL (1.8-7.7); NEUTROPHILS % 82.3 % (36.0-66.0)
[2017-11-08 10:38] LABS: DIFF SLIDE NUMBER 36
[2017-11-08 10:39] LABS: PLATELET ESTIMATE NORMAL (NORMAL)
[2017-11-08 10:45] LABS: INR 1.35; PROTHROMBIN TIME 16.9 SECONDS (12.4-14.5)
[2017-11-08 10:55] LABS: ALBUMIN 2.4 GM/DL (3.2-5.2); ANION GAP 9 MEQ/L (8-16); BLOOD UREA NITROGEN 22 MG/DL (7-18); CALCIUM LEVEL 8.8 MG/DL (8.8-10.2); CARBON DIOXIDE LEVEL 26 MEQ/L (21-32); CHLORIDE LEVEL 103 MEQ/L (98-107); CREATININE FOR GFR 3.16 MG/DL (0.55-1.02); GLOMERULAR FILTRATION RATE 15.6 (>45); GLUCOSE, FASTING 116 MG/DL (80-110); MAGNESIUM LEVEL 1.6 MG/DL (1.8-2.4); POTASSIUM SERUM 3.5 MEQ/L (3.5-5.1); SODIUM LEVEL 138 MEQ/L (136-145)
[2017-11-08 11:59] LABS: BEDSIDE GLUCOSE 192 MG/DL (80-115)
[2017-11-08 15:56] LABS: KETONE, URINE AUTO RFX NEGATIVE (NEGATIVE); LEUKOCYTE ESTERASE UR AUTO RFX NEGATIVE (NEGATIVE); NITRITE, URINE AUTO RFX NEGATIVE (NEGATIVE); RBC, URINE AUTO RFX 3 /HPF (0-3); SPECIFIC GRAVITY UR AUTO RFX 1.017 (1.002-1.035); SQUAM EPITHELIAL CELL UR AURFX 0 /HPF (0-6); WBC, URINE AUTO RFX 2 /HPF (0-3)
[2017-11-08 16:41] LABS: BEDSIDE GLUCOSE 188 MG/DL (80-115)
[2017-11-08 20:37] LABS: BEDSIDE GLUCOSE 163 MG/DL (80-115)
[2017-11-08] MEDS: FERROUS SULFATE 325MG TAB PO (21:10)
[2017-11-08] MEDS: ATORVASTATIN 10 MG TAB PO (21:10)
[2017-11-09] MEDS: MORPHINE 2 MG/ML 1ML SYRINGE IV ×2 (05:14→10:02)
[2017-11-09] MEDS: ACETAMINOPHEN 500 MG TAB PO ×3 (05:14→21:53)
[2017-11-09] MEDS: HEPARIN SOD (PORCINE) 5000 UNITS/ML VIAL SC ×3 (05:14→21:54)
[2017-11-09 06:59] LABS: HEMATOCRIT 26.4 % (36.0-47.0); MEAN CORPUSCULAR HEMOGLOBIN 32.1 pg (27.0-33.0); MEAN CORPUSCULAR HGB CONC 34.1 g/dl (32.0-36.5); MEAN CORPUSCULAR VOLUME 94.3 fl (80.0-96.0); PLATELET COUNT, AUTOMATED 222 10^3/uL (150-450); RED CELL DISTRIBUTION WIDTH 12.3 % (11.5-14.5); WHITE BLOOD COUNT 10.9 10^3/uL (4.0-10.0)
[2017-11-09 07:12] LABS: INR 1.26; PROTHROMBIN TIME 16.1 SECONDS (12.4-14.5)
[2017-11-09 07:18] LABS: ALBUMIN 2.1 GM/DL (3.2-5.2); ANION GAP 9 MEQ/L (8-16); BLOOD UREA NITROGEN 26 MG/DL (7-18); CALCIUM LEVEL 8.4 MG/DL (8.8-10.2); CARBON DIOXIDE LEVEL 28 MEQ/L (21-32); CHLORIDE LEVEL 98 MEQ/L (98-107); CREATININE FOR GFR 3.77 MG/DL (0.55-1.02); GLOMERULAR FILTRATION RATE 12.7 (>45); GLUCOSE, FASTING 196 MG/DL (80-110); MAGNESIUM LEVEL 1.8 MG/DL (1.8-2.4); PHOSPHORUS LEVEL 3.9 MG/DL (2.5-4.9); POTASSIUM SERUM 3.6 MEQ/L (3.5-5.1); SODIUM LEVEL 135 MEQ/L (136-145)
[2017-11-09] MEDS: VITAMIN D 1,000 INTERNATIONAL UNITS TABLET PO (08:22)
[2017-11-09] MEDS: LACTOBACILLUS ACIDOPHILUS CAP (BACID) PO ×2 (08:22→21:53)
[2017-11-09] MEDS: CARVedilol 12.5 MG TAB PO ×2 (08:22→20:42)
[2017-11-09] MEDS: OMEPRAZOLE 20 MG CAP PO (08:22)
[2017-11-09] MEDS: LOSARTAN 50 MG TAB PO ×2 (08:22→20:42)
[2017-11-09] MEDS: SENOKOT S TAB PO ×2 (08:22→21:53)
[2017-11-09] MEDS: PROPAFENONE 150 MG TAB PO ×2 (08:22→21:53)
[2017-11-09] MEDS: HumaLOG INSULIN (NovoLOG) PER UNIT SC ×4 (08:23→20:43)
[2017-11-09] MEDS: buPROPion **XL** TABLET 150MG (WELLBUTRIN XL) PO (08:23)
[2017-11-09] MEDS: MIRALAX *UNIT DOSE* 17GM PACKET PO (08:28)
[2017-11-09 11:55] LABS: BEDSIDE GLUCOSE 170 MG/DL (80-115)
[2017-11-09] MEDS: CEFAZOLIN SOD IV (12:16)
[2017-11-09] MEDS: DILUENT IV (12:16)
[2017-11-09] MEDS: oxyCODONE 5MG TAB PO (12:19)
[2017-11-09 16:41] LABS: BEDSIDE GLUCOSE 251 MG/DL (80-115)
[2017-11-09] MEDS: WARFARIN SOD 5 MG TAB PO (17:44)
[2017-11-09 20:09] LABS: BEDSIDE GLUCOSE 136 MG/DL (80-115)
[2017-11-09] MEDS: FERROUS SULFATE 325MG TAB PO (21:53)
[2017-11-09] MEDS: ATORVASTATIN 10 MG TAB PO (21:53)
[2017-11-10] MEDS: HEPARIN SOD (PORCINE) 5000 UNITS/ML VIAL SC ×3 (05:13→21:27)
[2017-11-10] MEDS: ACETAMINOPHEN 500 MG TAB PO ×3 (05:13→21:27)
[2017-11-10 06:56] LABS: HEMATOCRIT 25.4 % (36.0-47.0); HEMOGLOBIN 8.7 g/dl (12.0-16.0); MEAN CORPUSCULAR HEMOGLOBIN 31.6 pg (27.0-33.0); MEAN CORPUSCULAR HGB CONC 34.3 g/dl (32.0-36.5); MEAN CORPUSCULAR VOLUME 92.4 fl (80.0-96.0); PLATELET COUNT, AUTOMATED 297 10^3/uL (150-450); RED BLOOD COUNT 2.75 10^6/uL (4.00-5.40); RED CELL DISTRIBUTION WIDTH 12.2 % (11.5-14.5); WHITE BLOOD COUNT 10.2 10^3/uL (4.0-10.0)
[2017-11-10 07:04] LABS: INR 1.22; PROTHROMBIN TIME 15.6 SECONDS (12.4-14.5)
[2017-11-10 07:11] LABS: ALBUMIN 1.9 GM/DL (3.2-5.2); ANION GAP 9 MEQ/L (8-16); BLOOD UREA NITROGEN 34 MG/DL (7-18); CALCIUM LEVEL 8.7 MG/DL (8.8-10.2); CARBON DIOXIDE LEVEL 28 MEQ/L (21-32); CHLORIDE LEVEL 97 MEQ/L (98-107); CREATININE FOR GFR 4.41 MG/DL (0.55-1.02); GLOMERULAR FILTRATION RATE 10.6 (>45); GLUCOSE, FASTING 178 MG/DL (80-110); MAGNESIUM LEVEL 1.7 MG/DL (1.8-2.4); PHOSPHORUS LEVEL 4.6 MG/DL (2.5-4.9); POTASSIUM SERUM 3.4 MEQ/L (3.5-5.1); SODIUM LEVEL 134 MEQ/L (136-145)
[2017-11-10] MEDS: MORPHINE 2 MG/ML 1ML SYRINGE IV (07:11)
[2017-11-10] MEDS: VITAMIN D 1,000 INTERNATIONAL UNITS TABLET PO (08:26)
[2017-11-10] MEDS: CARVedilol 12.5 MG TAB PO ×2 (08:26→21:27)
[2017-11-10] MEDS: LACTOBACILLUS ACIDOPHILUS CAP (BACID) PO ×2 (08:26→21:26)
[2017-11-10] MEDS: PROPAFENONE 150 MG TAB PO ×2 (08:27→21:28)
[2017-11-10] MEDS: OMEPRAZOLE 20 MG CAP PO (08:27)
[2017-11-10] MEDS: SENOKOT S TAB PO ×2 (08:27→21:26)
[2017-11-10] MEDS: buPROPion **XL** TABLET 150MG (WELLBUTRIN XL) PO (08:27)
[2017-11-10] MEDS: MIRALAX *UNIT DOSE* 17GM PACKET PO (08:27)
[2017-11-10] MEDS: LOSARTAN 50 MG TAB PO ×2 (08:27→21:28)
[2017-11-10] MEDS: HumaLOG INSULIN (NovoLOG) PER UNIT SC ×4 (08:28→21:00)
[2017-11-10 11:47] LABS: BEDSIDE GLUCOSE 139 MG/DL (80-115)
[2017-11-10] MEDS: POTASSIUM CHLORIDE 10 MEQ SR TABLET PO (14:46)
[2017-11-10] MEDS: MAG SULF 1GM/100ML (MAG RUN) 1 GM in APPROPRIATE DILUENT 1 EA IV (14:46)
[2017-11-10 17:02] LABS: BEDSIDE GLUCOSE 303 MG/DL (80-115)
[2017-11-10] MEDS: WARFARIN SOD 7.5 MG TAB PO (17:07)
[2017-11-10 20:55] LABS: BEDSIDE GLUCOSE 145 MG/DL (80-115)
[2017-11-10] MEDS: ATORVASTATIN 10 MG TAB PO (21:00)
[2017-11-10] MEDS: FERROUS SULFATE 325MG TAB PO (21:26)
[2017-11-11] MEDS: HEPARIN SOD (PORCINE) 5000 UNITS/ML VIAL SC ×3 (06:00→22:32)
[2017-11-11 06:03] LABS: HEMATOCRIT 26.7 % (36.0-47.0); HEMOGLOBIN 9.2 g/dl (12.0-16.0); MEAN CORPUSCULAR HEMOGLOBIN 32.2 pg (27.0-33.0); MEAN CORPUSCULAR HGB CONC 34.5 g/dl (32.0-36.5); MEAN CORPUSCULAR VOLUME 93.4 fl (80.0-96.0); PLATELET COUNT, AUTOMATED 273 10^3/uL (150-450); RED BLOOD COUNT 2.86 10^6/uL (4.00-5.40); WHITE BLOOD COUNT 10.8 10^3/uL (4.0-10.0)
[2017-11-11] MEDS: traMADol 50 MG TAB PO ×2 (06:07→18:19)
[2017-11-11] MEDS: ACETAMINOPHEN 500 MG TAB PO ×3 (06:08→22:31)
[2017-11-11 06:13] LABS: INR 1.47; PROTHROMBIN TIME 18.2 SECONDS (12.4-14.5)
[2017-11-11 06:26] LABS: ALBUMIN 1.8 GM/DL (3.2-5.2); ANION GAP 7 MEQ/L (8-16); BLOOD UREA NITROGEN 38 MG/DL (7-18); CALCIUM LEVEL 8.8 MG/DL (8.8-10.2); CARBON DIOXIDE LEVEL 27 MEQ/L (21-32); CHLORIDE LEVEL 97 MEQ/L (98-107); GLOMERULAR FILTRATION RATE 10.9 (>45); GLUCOSE, FASTING 133 MG/DL (80-110); MAGNESIUM LEVEL 2.1 MG/DL (1.8-2.4); PHOSPHORUS LEVEL 4.5 MG/DL (2.5-4.9); POTASSIUM SERUM 3.6 MEQ/L (3.5-5.1); SODIUM LEVEL 131 MEQ/L (136-145)
[2017-11-11] MEDS: HumaLOG INSULIN (NovoLOG) PER UNIT SC ×4 (08:49→20:22)
[2017-11-11] MEDS: MORPHINE 4 MG/ML 1ML SYRINGE IV (08:50)
[2017-11-11] MEDS: MIRALAX *UNIT DOSE* 17GM PACKET PO (08:50)
[2017-11-11] MEDS: LACTOBACILLUS ACIDOPHILUS CAP (BACID) PO ×2 (08:51→22:30)
[2017-11-11] MEDS: buPROPion **XL** TABLET 150MG (WELLBUTRIN XL) PO (08:51)
[2017-11-11] MEDS: PROPAFENONE 150 MG TAB PO ×2 (08:51→22:32)
[2017-11-11] MEDS: VITAMIN D 1,000 INTERNATIONAL UNITS TABLET PO (08:51)
[2017-11-11] MEDS: SENOKOT S TAB PO ×2 (08:52→22:30)
[2017-11-11] MEDS: OMEPRAZOLE 20 MG CAP PO (08:52)
[2017-11-11] MEDS: CARVedilol 12.5 MG TAB PO ×2 (08:52→22:33)
[2017-11-11] MEDS: LOSARTAN 50 MG TAB PO ×2 (08:53→22:32)
[2017-11-11] MEDS: POTASSIUM CHLORIDE 10 MEQ SR TABLET PO (11:15)
[2017-11-11 12:28] LABS: BEDSIDE GLUCOSE 283 MG/DL (80-115)
[2017-11-11 17:34] LABS: BEDSIDE GLUCOSE 112 MG/DL (80-115)
[2017-11-11 20:41] LABS: BEDSIDE GLUCOSE 169 MG/DL (80-115)
[2017-11-11] MEDS: FERROUS SULFATE 325MG TAB PO (22:30)
[2017-11-11] MEDS: ATORVASTATIN 10 MG TAB PO (22:30)
[2017-11-12] MEDS: HEPARIN SOD (PORCINE) 5000 UNITS/ML VIAL SC ×3 (06:02→22:57)
[2017-11-12] MEDS: ACETAMINOPHEN 500 MG TAB PO ×3 (06:04→22:57)
[2017-11-12] MEDS: traMADol 50 MG TAB PO (06:04)
[2017-11-12 06:16] LABS: HEMATOCRIT 26.2 % (36.0-47.0); MEAN CORPUSCULAR HEMOGLOBIN 31.7 pg (27.0-33.0); MEAN CORPUSCULAR HGB CONC 34.4 g/dl (32.0-36.5); MEAN CORPUSCULAR VOLUME 92.3 fl (80.0-96.0); PLATELET COUNT, AUTOMATED 387 10^3/uL (150-450); RED BLOOD COUNT 2.84 10^6/uL (4.00-5.40); RED CELL DISTRIBUTION WIDTH 11.9 % (11.5-14.5); WHITE BLOOD COUNT 7.9 10^3/uL (4.0-10.0)
[2017-11-12 06:37] LABS: INR 1.95; PROTHROMBIN TIME 22.9 SECONDS (12.4-14.5)
[2017-11-12 06:51] LABS: ALBUMIN 1.8 GM/DL (3.2-5.2); ANION GAP 8 MEQ/L (8-16); BLOOD UREA NITROGEN 44 MG/DL (7-18); CALCIUM LEVEL 8.7 MG/DL (8.8-10.2); CARBON DIOXIDE LEVEL 29 MEQ/L (21-32); CHLORIDE LEVEL 95 MEQ/L (98-107); CREATININE FOR GFR 4.44 MG/DL (0.55-1.02); GLOMERULAR FILTRATION RATE 10.5 (>45); GLUCOSE, FASTING 125 MG/DL (80-110); MAGNESIUM LEVEL 2.2 MG/DL (1.8-2.4); PHOSPHORUS LEVEL 4.9 MG/DL (2.5-4.9); POTASSIUM SERUM 3.3 MEQ/L (3.5-5.1); SODIUM LEVEL 132 MEQ/L (136-145)
[2017-11-12] MEDS: POTASSIUM CHLORIDE 10 MEQ SR TABLET PO (10:07)
[2017-11-12] MEDS: HumaLOG INSULIN (NovoLOG) PER UNIT SC ×4 (10:07→20:50)
[2017-11-12] MEDS: LACTOBACILLUS ACIDOPHILUS CAP (BACID) PO ×2 (10:08→21:19)
[2017-11-12] MEDS: MIRALAX *UNIT DOSE* 17GM PACKET PO (10:08)
[2017-11-12] MEDS: PROPAFENONE 150 MG TAB PO ×2 (10:08→21:19)
[2017-11-12] MEDS: VITAMIN D 1,000 INTERNATIONAL UNITS TABLET PO (10:08)
[2017-11-12] MEDS: buPROPion **XL** TABLET 150MG (WELLBUTRIN XL) PO (10:09)
[2017-11-12] MEDS: OMEPRAZOLE 20 MG CAP PO (10:09)
[2017-11-12] MEDS: SENOKOT S TAB PO ×2 (10:10→21:19)
[2017-11-12] MEDS: LOSARTAN 50 MG TAB PO ×2 (10:12→20:50)
[2017-11-12] MEDS: CARVedilol 12.5 MG TAB PO ×2 (10:13→20:50)
[2017-11-12 12:11] LABS: BEDSIDE GLUCOSE 172 MG/DL (80-115)
[2017-11-12] MEDS: ONDANSETRON 4MG/2ML VIAL (J2405) IV (12:21)
[2017-11-12 16:38] LABS: BEDSIDE GLUCOSE 216 MG/DL (80-115)
[2017-11-12] MEDS: WARFARIN SOD 5 MG TAB PO (18:05)
[2017-11-12] MEDS: FERROUS SULFATE 325MG TAB PO (21:19)
[2017-11-12] MEDS: ATORVASTATIN 10 MG TAB PO (21:19)
[2017-11-12 21:27] LABS: BEDSIDE GLUCOSE 172 MG/DL (80-115)
[2017-11-13] MEDS: HEPARIN SOD (PORCINE) 5000 UNITS/ML VIAL SC ×3 (06:01→21:07)
[2017-11-13] MEDS: ACETAMINOPHEN 500 MG TAB PO ×4 (06:01→21:06)
[2017-11-13] MEDS: traMADol 50 MG TAB PO ×3 (06:02→21:06)
[2017-11-13 07:41] LABS: HEMATOCRIT 24.9 % (36.0-47.0); HEMOGLOBIN 8.5 g/dl (12.0-16.0); MEAN CORPUSCULAR HEMOGLOBIN 31.6 pg (27.0-33.0); MEAN CORPUSCULAR HGB CONC 34.1 g/dl (32.0-36.5); MEAN CORPUSCULAR VOLUME 92.6 fl (80.0-96.0); PLATELET COUNT, AUTOMATED 440 10^3/uL (150-450); RED BLOOD COUNT 2.69 10^6/uL (4.00-5.40); WHITE BLOOD COUNT 8.1 10^3/uL (4.0-10.0)
[2017-11-13 07:53] LABS: INR 1.93; PROTHROMBIN TIME 22.7 SECONDS (12.4-14.5)
[2017-11-13 07:56] LABS: ANION GAP 10 MEQ/L (8-16); BLOOD UREA NITROGEN 49 MG/DL (7-18); CALCIUM LEVEL 8.9 MG/DL (8.8-10.2); CARBON DIOXIDE LEVEL 28 MEQ/L (21-32); CHLORIDE LEVEL 94 MEQ/L (98-107); CREATININE FOR GFR 4.59 MG/DL (0.55-1.02); GLOMERULAR FILTRATION RATE 10.1 (>45); GLUCOSE, FASTING 141 MG/DL (80-110); MAGNESIUM LEVEL 2.1 MG/DL (1.8-2.4); PHOSPHORUS LEVEL 4.7 MG/DL (2.5-4.9); POTASSIUM SERUM 3.4 MEQ/L (3.5-5.1); SODIUM LEVEL 132 MEQ/L (136-145)
[2017-11-13] MEDS: HumaLOG INSULIN (NovoLOG) PER UNIT SC ×4 (08:06→20:48)
[2017-11-13] MEDS: SENOKOT S TAB PO ×2 (09:00→21:05)
[2017-11-13] MEDS: VITAMIN D 1,000 INTERNATIONAL UNITS TABLET PO (09:10)
[2017-11-13] MEDS: buPROPion **XL** TABLET 150MG (WELLBUTRIN XL) PO (09:10)
[2017-11-13] MEDS: LACTOBACILLUS ACIDOPHILUS CAP (BACID) PO ×2 (09:11→21:06)
[2017-11-13] MEDS: LOSARTAN 50 MG TAB PO ×2 (09:11→21:05)
[2017-11-13] MEDS: PROPAFENONE 150 MG TAB PO ×2 (09:13→21:06)
[2017-11-13] MEDS: OMEPRAZOLE 20 MG CAP PO (09:14)
[2017-11-13] MEDS: CARVedilol 12.5 MG TAB PO ×2 (09:14→21:05)
[2017-11-13] MEDS: MIRALAX *UNIT DOSE* 17GM PACKET PO (09:14)
[2017-11-13] MEDS ORDERED: BISACODYL 5 MG TAB PO (09:45)
[2017-11-13] MEDS ORDERED: BISACODYL 10 MG SUPP PR (09:45)
[2017-11-13] MEDS: BISACODYL 5 MG TAB PO (09:45)
[2017-11-13 12:06] LABS: BEDSIDE GLUCOSE 150 MG/DL (80-115)
[2017-11-13] MEDS: ONDANSETRON 4MG/2ML VIAL (J2405) IV (15:22)
[2017-11-13] MEDS: POTASSIUM CHLORIDE 10 MEQ SR TABLET PO (16:24)
[2017-11-13 16:55] LABS: BEDSIDE GLUCOSE 183 MG/DL (80-115)
[2017-11-13] MEDS ORDERED: WARFARIN SOD 3 MG TAB PO (17:00)
[2017-11-13] MEDS: WARFARIN SOD 7.5 MG TAB PO (17:46)
[2017-11-13 21:02] LABS: BEDSIDE GLUCOSE 113 MG/DL (80-115)
[2017-11-13] MEDS: FERROUS SULFATE 325MG TAB PO (21:04)
[2017-11-13] MEDS: ATORVASTATIN 10 MG TAB PO (21:05)
[2017-11-14] MEDS: ACETAMINOPHEN 500 MG TAB PO ×3 (06:39→21:43)
[2017-11-14] MEDS: HEPARIN SOD (PORCINE) 5000 UNITS/ML VIAL SC ×3 (06:40→21:44)
[2017-11-14] MEDS: traMADol 50 MG TAB PO ×2 (06:41→14:56)
[2017-11-14 07:07] LABS: BEDSIDE GLUCOSE 120 MG/DL (80-115)
[2017-11-14] MEDS: HumaLOG INSULIN (NovoLOG) PER UNIT SC ×4 (07:30→20:24)
[2017-11-14 08:25] LABS: HEMATOCRIT 24.1 % (36.0-47.0); HEMOGLOBIN 8.2 g/dl (12.0-16.0); MEAN CORPUSCULAR HEMOGLOBIN 31.4 pg (27.0-33.0); MEAN CORPUSCULAR VOLUME 92.3 fl (80.0-96.0); PLATELET COUNT, AUTOMATED 452 10^3/uL (150-450); RED BLOOD COUNT 2.61 10^6/uL (4.00-5.40); RED CELL DISTRIBUTION WIDTH 11.9 % (11.5-14.5); WHITE BLOOD COUNT 7.5 10^3/uL (4.0-10.0)
[2017-11-14 08:35] LABS: INR 2.56; PROTHROMBIN TIME 28.6 SECONDS (12.4-14.5)
[2017-11-14 08:46] LABS: ANION GAP 9 MEQ/L (8-16); BLOOD UREA NITROGEN 49 MG/DL (7-18); CALCIUM LEVEL 8.8 MG/DL (8.8-10.2); CARBON DIOXIDE LEVEL 28 MEQ/L (21-32); CHLORIDE LEVEL 96 MEQ/L (98-107); CREATININE FOR GFR 4.35 MG/DL (0.55-1.02); GLOMERULAR FILTRATION RATE 10.8 (>45); GLUCOSE, FASTING 141 MG/DL (80-110); POTASSIUM SERUM 3.5 MEQ/L (3.5-5.1); SODIUM LEVEL 133 MEQ/L (136-145)
[2017-11-14] MEDS: buPROPion **XL** TABLET 150MG (WELLBUTRIN XL) PO (09:19)
[2017-11-14] MEDS: LOSARTAN 50 MG TAB PO ×2 (09:19→21:43)
[2017-11-14] MEDS: PROPAFENONE 150 MG TAB PO ×2 (09:19→21:42)
[2017-11-14] MEDS: CARVedilol 12.5 MG TAB PO ×2 (09:19→21:44)
[2017-11-14] MEDS: MIRALAX *UNIT DOSE* 17GM PACKET PO (09:19)
[2017-11-14] MEDS: OMEPRAZOLE 20 MG CAP PO (09:19)
[2017-11-14] MEDS: LACTOBACILLUS ACIDOPHILUS CAP (BACID) PO ×2 (09:19→21:36)
[2017-11-14] MEDS: SENOKOT S TAB PO ×2 (09:19→21:00)
[2017-11-14] MEDS: VITAMIN D 1,000 INTERNATIONAL UNITS TABLET PO (09:19)
[2017-11-14 12:03] LABS: BEDSIDE GLUCOSE 239 MG/DL (80-115)
[2017-11-14] MEDS: DARBEPOETIN 100 MCG/0.5 ML *NON-DIALYSIS* SYRINGE (J0881) SC (12:34)
[2017-11-14 16:45] LABS: BEDSIDE GLUCOSE 104 MG/DL (80-115)
[2017-11-14 20:28] LABS: BEDSIDE GLUCOSE 207 MG/DL (80-115)
[2017-11-14] MEDS: FERROUS SULFATE 325MG TAB PO (21:36)
[2017-11-14] MEDS: ATORVASTATIN 10 MG TAB PO (21:45)
[2017-11-15] MEDS: HEPARIN SOD (PORCINE) 5000 UNITS/ML VIAL SC ×3 (05:43→23:17)
[2017-11-15] MEDS: ACETAMINOPHEN 500 MG TAB PO ×3 (05:46→23:16)
[2017-11-15] MEDS: traMADol 50 MG TAB PO ×2 (05:47→17:20)
[2017-11-15 06:47] LABS: HEMATOCRIT 25.3 % (36.0-47.0); HEMOGLOBIN 8.7 g/dl (12.0-16.0); MEAN CORPUSCULAR HEMOGLOBIN 31.5 pg (27.0-33.0); MEAN CORPUSCULAR HGB CONC 34.4 g/dl (32.0-36.5); MEAN CORPUSCULAR VOLUME 91.7 fl (80.0-96.0); PLATELET COUNT, AUTOMATED 451 10^3/uL (150-450); RED BLOOD COUNT 2.76 10^6/uL (4.00-5.40); WHITE BLOOD COUNT 7.4 10^3/uL (4.0-10.0)
[2017-11-15 07:01] LABS: INR 2.33; PROTHROMBIN TIME 26.5 SECONDS (12.4-14.5)
[2017-11-15 07:10] LABS: ANION GAP 9 MEQ/L (8-16); BLOOD UREA NITROGEN 44 MG/DL (7-18); CALCIUM LEVEL 8.8 MG/DL (8.8-10.2); CARBON DIOXIDE LEVEL 29 MEQ/L (21-32); CHLORIDE LEVEL 95 MEQ/L (98-107); CREATININE FOR GFR 3.96 MG/DL (0.55-1.02); GLUCOSE, FASTING 180 MG/DL (80-110); POTASSIUM SERUM 3.4 MEQ/L (3.5-5.1); SODIUM LEVEL 133 MEQ/L (136-145)
[2017-11-15] MEDS: SENOKOT S TAB PO ×2 (08:02→23:15)
[2017-11-15] MEDS: PROPAFENONE 150 MG TAB PO ×2 (08:03→23:15)
[2017-11-15] MEDS: buPROPion **XL** TABLET 150MG (WELLBUTRIN XL) PO (08:03)
[2017-11-15] MEDS: OMEPRAZOLE 20 MG CAP PO (08:03)
[2017-11-15] MEDS: LACTOBACILLUS ACIDOPHILUS CAP (BACID) PO ×2 (08:03→23:15)
[2017-11-15] MEDS: VITAMIN D 1,000 INTERNATIONAL UNITS TABLET PO (08:03)
[2017-11-15] MEDS: CARVedilol 12.5 MG TAB PO ×2 (08:04→23:14)
[2017-11-15] MEDS: HumaLOG INSULIN (NovoLOG) PER UNIT SC ×4 (08:04→21:00)
[2017-11-15] MEDS: LOSARTAN 50 MG TAB PO ×2 (08:04→23:15)
[2017-11-15] MEDS: MIRALAX *UNIT DOSE* 17GM PACKET PO (08:08)
[2017-11-15] MEDS: POTASSIUM CHLORIDE 10 MEQ SR TABLET PO (10:27)
[2017-11-15 11:50] LABS: BEDSIDE GLUCOSE 164 MG/DL (80-115)
[2017-11-15 17:06] LABS: BEDSIDE GLUCOSE 166 MG/DL (80-115)
[2017-11-15 23:11] LABS: BEDSIDE GLUCOSE 132 MG/DL (80-115)
[2017-11-15] MEDS: FERROUS SULFATE 325MG TAB PO (23:15)
[2017-11-15] MEDS: ATORVASTATIN 10 MG TAB PO (23:15)
[2017-11-16] MEDS: HEPARIN SOD (PORCINE) 5000 UNITS/ML VIAL SC ×3 (06:19→22:00)
[2017-11-16] MEDS: traMADol 50 MG TAB PO ×2 (06:20→22:33)
[2017-11-16] MEDS: ACETAMINOPHEN 500 MG TAB PO ×3 (06:21→22:32)
[2017-11-16 06:43] LABS: INR 2.01; PROTHROMBIN TIME 23.5 SECONDS (12.4-14.5)
[2017-11-16 07:34] LABS: BEDSIDE GLUCOSE 157 MG/DL (80-115)
[2017-11-16] MEDS: buPROPion **XL** TABLET 150MG (WELLBUTRIN XL) PO (08:03)
[2017-11-16] MEDS: OMEPRAZOLE 20 MG CAP PO (08:03)
[2017-11-16] MEDS: SENOKOT S TAB PO ×2 (08:03→21:00)
[2017-11-16] MEDS: VITAMIN D 1,000 INTERNATIONAL UNITS TABLET PO (08:03)
[2017-11-16] MEDS: PROPAFENONE 150 MG TAB PO ×2 (08:03→22:30)
[2017-11-16] MEDS: LACTOBACILLUS ACIDOPHILUS CAP (BACID) PO ×2 (08:03→22:30)
[2017-11-16] MEDS: CARVedilol 12.5 MG TAB PO ×2 (08:04→22:31)
[2017-11-16] MEDS: LOSARTAN 50 MG TAB PO ×2 (08:10→22:32)
[2017-11-16] MEDS: MIRALAX *UNIT DOSE* 17GM PACKET PO (08:10)
[2017-11-16] MEDS: POTASSIUM CHLORIDE 10% LIQ 20 MEQ/15 ML UDC PO (08:11)
[2017-11-16] MEDS: HumaLOG INSULIN (NovoLOG) PER UNIT SC ×4 (08:11→20:53)
[2017-11-16 08:36] LABS: HEMATOCRIT 24.8 % (36.0-47.0); HEMOGLOBIN 8.2 g/dl (12.0-16.0); MEAN CORPUSCULAR HEMOGLOBIN 30.9 pg (27.0-33.0); MEAN CORPUSCULAR HGB CONC 33.1 g/dl (32.0-36.5); MEAN CORPUSCULAR VOLUME 93.6 fl (80.0-96.0); PLATELET COUNT, AUTOMATED 489 10^3/uL (150-450); RED BLOOD COUNT 2.65 10^6/uL (4.00-5.40); RED CELL DISTRIBUTION WIDTH 12.2 % (11.5-14.5); WHITE BLOOD COUNT 7.7 10^3/uL (4.0-10.0)
[2017-11-16 08:48] LABS: ANION GAP 6 MEQ/L (8-16); BLOOD UREA NITROGEN 41 MG/DL (7-18); CALCIUM LEVEL 8.8 MG/DL (8.8-10.2); CARBON DIOXIDE LEVEL 30 MEQ/L (21-32); CHLORIDE LEVEL 97 MEQ/L (98-107); CREATININE FOR GFR 3.87 MG/DL (0.55-1.02); GLOMERULAR FILTRATION RATE 12.4 (>45); GLUCOSE, FASTING 134 MG/DL (80-110); POTASSIUM SERUM 3.8 MEQ/L (3.5-5.1); SODIUM LEVEL 133 MEQ/L (136-145)
[2017-11-16 11:56] LABS: BEDSIDE GLUCOSE 195 MG/DL (80-115)
[2017-11-16] MEDS: POTASSIUM CHLORIDE 10 MEQ SR TABLET PO (12:24)
[2017-11-16 17:24] LABS: BEDSIDE GLUCOSE 146 MG/DL (80-115)
[2017-11-16 20:58] LABS: BEDSIDE GLUCOSE 188 MG/DL (80-115)
[2017-11-16] MEDS: ATORVASTATIN 10 MG TAB PO (22:31)
[2017-11-16] MEDS: FERROUS SULFATE 325MG TAB PO (22:31)
[2017-11-17] MEDS: HEPARIN SOD (PORCINE) 5000 UNITS/ML VIAL SC ×3 (07:00→22:02)
[2017-11-17] MEDS: ACETAMINOPHEN 500 MG TAB PO ×3 (07:00→22:01)
[2017-11-17] MEDS: traMADol 50 MG TAB PO (07:01)
[2017-11-17 07:10] LABS: INR 1.58; PROTHROMBIN TIME 19.3 SECONDS (12.4-14.5)
[2017-11-17 08:00] LABS: BEDSIDE GLUCOSE 157 MG/DL (80-115)
[2017-11-17] MEDS: HumaLOG INSULIN (NovoLOG) PER UNIT SC ×4 (08:29→21:00)
[2017-11-17] MEDS: OMEPRAZOLE 20 MG CAP PO (08:29)
[2017-11-17] MEDS: buPROPion **XL** TABLET 150MG (WELLBUTRIN XL) PO (08:29)
[2017-11-17] MEDS: PROPAFENONE 150 MG TAB PO ×2 (08:29→22:00)
[2017-11-17] MEDS: VITAMIN D 1,000 INTERNATIONAL UNITS TABLET PO (08:29)
[2017-11-17] MEDS: LACTOBACILLUS ACIDOPHILUS CAP (BACID) PO ×2 (08:30→22:01)
[2017-11-17] MEDS: POTASSIUM CHLORIDE 10 MEQ SR TABLET PO (08:30)
[2017-11-17] MEDS: LOSARTAN 50 MG TAB PO ×2 (08:30→22:01)
[2017-11-17] MEDS: CARVedilol 12.5 MG TAB PO ×2 (08:31→22:02)
[2017-11-17] MEDS: MIRALAX *UNIT DOSE* 17GM PACKET PO (08:32)
[2017-11-17] MEDS: SENOKOT S TAB PO ×2 (08:32→21:00)
[2017-11-17 12:06] LABS: BEDSIDE GLUCOSE 165 MG/DL (80-115)
[2017-11-17 17:51] LABS: BEDSIDE GLUCOSE 212 MG/DL (80-115)
[2017-11-17] MEDS: ATORVASTATIN 10 MG TAB PO (21:00)
[2017-11-17 21:26] LABS: BEDSIDE GLUCOSE 130 MG/DL (80-115)
[2017-11-17] MEDS: FERROUS SULFATE 325MG TAB PO (22:01)
[2017-11-18 06:01] LABS: BEDSIDE GLUCOSE 102 MG/DL (80-115)
[2017-11-18] MEDS: HumaLOG INSULIN (NovoLOG) PER UNIT SC ×4 (06:08→21:00)
[2017-11-18] MEDS: MIRALAX *UNIT DOSE* 17GM PACKET PO (06:11)
[2017-11-18] MEDS: CARVedilol 12.5 MG TAB PO ×2 (06:19→21:53)
[2017-11-18] MEDS: SENOKOT S TAB PO ×2 (06:19→21:00)
[2017-11-18] MEDS: buPROPion **XL** TABLET 150MG (WELLBUTRIN XL) PO (06:19)
[2017-11-18] MEDS: LOSARTAN 50 MG TAB PO ×2 (06:19→21:54)
[2017-11-18] MEDS: LACTOBACILLUS ACIDOPHILUS CAP (BACID) PO ×2 (06:20→21:55)
[2017-11-18] MEDS: PROPAFENONE 150 MG TAB PO ×2 (06:20→21:53)
[2017-11-18] MEDS: POTASSIUM CHLORIDE 10 MEQ SR TABLET PO (06:20)
[2017-11-18] MEDS: ACETAMINOPHEN 500 MG TAB PO ×3 (06:21→21:53)
[2017-11-18] MEDS: VITAMIN D 1,000 INTERNATIONAL UNITS TABLET PO (06:21)
[2017-11-18] MEDS: HEPARIN SOD (PORCINE) 5000 UNITS/ML VIAL SC ×3 (06:22→21:56)
[2017-11-18] MEDS: OMEPRAZOLE 20 MG CAP PO (06:24)
[2017-11-18 06:25] LABS: INR 1.24; PROTHROMBIN TIME 15.8 SECONDS (12.4-14.5)
[2017-11-18 11:30] LABS: HEMATOCRIT 26.1 % (36.0-47.0); HEMOGLOBIN 8.6 g/dl (12.0-16.0); MEAN CORPUSCULAR HEMOGLOBIN 32.1 pg (27.0-33.0); MEAN CORPUSCULAR VOLUME 97.4 fl (80.0-96.0); PLATELET COUNT, AUTOMATED 489 10^3/uL (150-450); RED BLOOD COUNT 2.68 10^6/uL (4.00-5.40); RED CELL DISTRIBUTION WIDTH 12.6 % (11.5-14.5); WHITE BLOOD COUNT 9.9 10^3/uL (4.0-10.0)
[2017-11-18] MEDS ORDERED: DARBEPOETIN 100 MCG/0.5 ML *DIALYSIS* SYRINGE (J0882) IV (11:30)
[2017-11-18 11:43] LABS: ALBUMIN 2.3 GM/DL (3.2-5.2); ANION GAP 9 MEQ/L (8-16); BLOOD UREA NITROGEN 41 MG/DL (7-18); CALCIUM LEVEL 9.2 MG/DL (8.8-10.2); CARBON DIOXIDE LEVEL 28 MEQ/L (21-32); CHLORIDE LEVEL 100 MEQ/L (98-107); CREATININE FOR GFR 3.73 MG/DL (0.55-1.02); FERRITIN 266 NG/ML (8-252); GLOMERULAR FILTRATION RATE 12.9 (>45); GLUCOSE, FASTING 97 MG/DL (80-110); IRON (FE) 65 UG/DL (50-170); PHOSPHORUS LEVEL 3.7 MG/DL (2.5-4.9); POTASSIUM SERUM 4.2 MEQ/L (3.5-5.1); SODIUM LEVEL 137 MEQ/L (136-145)
[2017-11-18 11:59] LABS: BEDSIDE GLUCOSE 113 MG/DL (80-115)
[2017-11-18] MEDS: LIDOCAINE 1% SDV 5 ML VIAL SQ (17:16)
[2017-11-18] MEDS: HEPARIN 1,000 UNITS/ML 10ML VIAL (FOR RADIOLOGY& DIALYSIS ONLY) IV (17:16)
[2017-11-18 17:17] LABS: BEDSIDE GLUCOSE 77 MG/DL (80-115)
[2017-11-18] MEDS: WARFARIN SOD 7.5 MG TAB PO (17:57)
[2017-11-18 21:17] LABS: BEDSIDE GLUCOSE 187 MG/DL (80-115)
[2017-11-18] MEDS: FERROUS SULFATE 325MG TAB PO (21:53)
[2017-11-18] MEDS: ATORVASTATIN 10 MG TAB PO (21:53)
[2017-11-19] MEDS: ACETAMINOPHEN 500 MG TAB PO ×3 (05:22→20:52)
[2017-11-19] MEDS: HEPARIN SOD (PORCINE) 5000 UNITS/ML VIAL SC ×3 (05:23→20:53)
[2017-11-19 06:40] LABS: BEDSIDE GLUCOSE 103 MG/DL (80-115)
[2017-11-19] MEDS: HumaLOG INSULIN (NovoLOG) PER UNIT SC ×4 (07:30→20:53)
[2017-11-19] MEDS: SENOKOT S TAB PO ×2 (07:46→20:54)
[2017-11-19] MEDS: MIRALAX *UNIT DOSE* 17GM PACKET PO (07:46)
[2017-11-19] MEDS: CARVedilol 12.5 MG TAB PO ×2 (08:37→20:51)
[2017-11-19] MEDS: LOSARTAN 50 MG TAB PO ×2 (08:38→20:52)
[2017-11-19] MEDS: LACTOBACILLUS ACIDOPHILUS CAP (BACID) PO ×2 (08:38→20:50)
[2017-11-19] MEDS: buPROPion **XL** TABLET 150MG (WELLBUTRIN XL) PO (08:38)
[2017-11-19] MEDS: OMEPRAZOLE 20 MG CAP PO (08:38)
[2017-11-19] MEDS: VITAMIN D 1,000 INTERNATIONAL UNITS TABLET PO (08:38)
[2017-11-19] MEDS: PROPAFENONE 150 MG TAB PO ×2 (08:38→20:50)
[2017-11-19 12:12] LABS: BEDSIDE GLUCOSE 145 MG/DL (80-115)
[2017-11-19] MEDS: WARFARIN SOD 7.5 MG TAB PO (17:01)
[2017-11-19 20:30] LABS: BEDSIDE GLUCOSE 123 MG/DL (80-115)
[2017-11-19] MEDS: ATORVASTATIN 10 MG TAB PO (20:51)
[2017-11-19] MEDS: FERROUS SULFATE 325MG TAB PO (20:52)
[2017-11-20] MEDS: HEPARIN SOD (PORCINE) 5000 UNITS/ML VIAL SC (05:43)
[2017-11-20] MEDS: ACETAMINOPHEN 500 MG TAB PO (05:43)
[2017-11-20 07:04] LABS: BEDSIDE GLUCOSE 200 MG/DL (80-115)
[2017-11-20] MEDS: HumaLOG INSULIN (NovoLOG) PER UNIT SC ×2 (07:30→13:07)
[2017-11-20 07:44] LABS: HEMATOCRIT 29.1 % (36.0-47.0); HEMOGLOBIN 9.6 g/dl (12.0-16.0); MEAN CORPUSCULAR HEMOGLOBIN 32.2 pg (27.0-33.0); MEAN CORPUSCULAR VOLUME 97.7 fl (80.0-96.0); PLATELET COUNT, AUTOMATED 393 10^3/uL (150-450); RED BLOOD COUNT 2.98 10^6/uL (4.00-5.40); RED CELL DISTRIBUTION WIDTH 13.1 % (11.5-14.5); WHITE BLOOD COUNT 9.1 10^3/uL (4.0-10.0)
[2017-11-20 07:48] LABS: PROTHROMBIN TIME 17.5 SECONDS (12.4-14.5)
[2017-11-20 08:14] LABS: ANION GAP 9 MEQ/L (8-16); BLOOD UREA NITROGEN 28 MG/DL (7-18); CALCIUM LEVEL 9.1 MG/DL (8.8-10.2); CARBON DIOXIDE LEVEL 26 MEQ/L (21-32); CHLORIDE LEVEL 105 MEQ/L (98-107); CREATININE FOR GFR 3.41 MG/DL (0.55-1.02); GLOMERULAR FILTRATION RATE 14.3 (>45); GLUCOSE, FASTING 108 MG/DL (80-110); POTASSIUM SERUM 4.3 MEQ/L (3.5-5.1); SODIUM LEVEL 140 MEQ/L (136-145)
[2017-11-20] MEDS: SENOKOT S TAB PO ×2 (08:41→08:52)
[2017-11-20] MEDS: MIRALAX *UNIT DOSE* 17GM PACKET PO (08:41)
[2017-11-20] MEDS: OMEPRAZOLE 20 MG CAP PO (08:51)
[2017-11-20] MEDS: LACTOBACILLUS ACIDOPHILUS CAP (BACID) PO (08:51)
[2017-11-20] MEDS: VITAMIN D 1,000 INTERNATIONAL UNITS TABLET PO (08:51)
[2017-11-20] MEDS: buPROPion **XL** TABLET 150MG (WELLBUTRIN XL) PO (08:52)
[2017-11-20] MEDS: PROPAFENONE 150 MG TAB PO (08:53)
[2017-11-20] MEDS: LOSARTAN 50 MG TAB PO (08:54)
[2017-11-20] MEDS: CARVedilol 12.5 MG TAB PO (08:54)
[2017-11-20 12:23] LABS: BEDSIDE GLUCOSE 151 MG/DL (80-115)
== END 2017-11-20 13:27 | DRG 492 ==
LOC: M SDC 11-07 07:28 → M MS5PR 11-07 07:29 → M ED 10:55 → M MSPAV 11-07 14:57 → M SDC 14:26 → M MS5PR 17:10
PROC: 0QSJ3ZZ Reposition Right Fibula, Percutaneous Approach (ICD-10-PCS; 2017-11-06 13:21)
PROC: 0QSJ04Z Reposition Right Fibula with Internal Fixation Device, Open Approach (ICD-10-PCS; principal; 2017-11-06 14:54)
PROC: 0QSG06Z Reposition Right Tibia with Intramedullary Internal Fixation Device, Open Approach (ICD-10-PCS; 2017-11-06 14:54)
PROC: 5A1D70Z Performance of Urinary Filtration, Intermittent, Less than 6 Hours Per Day (ICD-10-PCS; 2017-11-06 14:54)
PROC: 30253K1 (ICD-10-PCS; 2017-11-06 14:54)
DX: S82.391A Other fracture of lower end of right tibia, initial encounter for closed fracture (principal); N18.6 End stage renal disease; I12.0 Hypertensive chronic kidney disease with stage 5 chronic kidney disease or end stage renal disease; D62 Acute posthemorrhagic anemia; E87.1 Hypo-osmolality and hyponatremia; E46 Unspecified protein-calorie malnutrition; S82.491A Other fracture of shaft of right fibula, initial encounter for closed fracture; W18.43XA Slipping, tripping and stumbling without falling due to stepping from one level to another, initial encounter; Y92.008 Other place in unspecified non-institutional (private) residence as the place of occurrence of the external cause; I48.0 Paroxysmal atrial fibrillation; K21.9 Gastro-esophageal reflux disease without esophagitis; F32.9 Major depressive disorder, single episode, unspecified; E11.22 Type 2 diabetes mellitus with diabetic chronic kidney disease; R50.82 Postprocedural fever; R41.82 Altered mental status, unspecified; K59.00 Constipation, unspecified; E87.6 Hypokalemia; E78.5 Hyperlipidemia, unspecified; R33.9 Retention of urine, unspecified; D63.1 Anemia in chronic kidney disease; Z99.2 Dependence on renal dialysis; Z79.01 Long term (current) use of anticoagulants; Z88.2 Allergy status to sulfonamides; Z79.84 Long term (current) use of oral hypoglycemic drugs; Z79.899 Other long term (current) drug therapy

== ENCOUNTER → 2017-12-15 | Outpatient (REF) ==
[2017-12-15 17:16] LABS: HEMATOCRIT 31.7 % (36.0-47.0); HEMOGLOBIN 10.4 g/dl (12.0-16.0); MEAN CORPUSCULAR HEMOGLOBIN 32.4 pg (27.0-33.0); MEAN CORPUSCULAR HGB CONC 32.8 g/dl (32.0-36.5); MEAN CORPUSCULAR VOLUME 98.8 fl (80.0-96.0); PLATELET COUNT, AUTOMATED 231 10^3/uL (150-450); RED BLOOD COUNT 3.21 10^6/uL (4.00-5.40); RED CELL DISTRIBUTION WIDTH 13.1 % (11.5-14.5); WHITE BLOOD COUNT 9.3 10^3/uL (4.0-10.0)
[2017-12-15 17:34] LABS: ANION GAP 8 MEQ/L (8-16); BLOOD UREA NITROGEN 27 MG/DL (7-18); C REACTIVE PROTEIN QUANTITATIV 0.48 MG/DL (0.00-0.30); CALCIUM LEVEL 9.1 MG/DL (8.8-10.2); CARBON DIOXIDE LEVEL 30 MEQ/L (21-32); CHLORIDE LEVEL 102 MEQ/L (98-107); CREATININE FOR GFR 3.55 MG/DL (0.55-1.30); GLOMERULAR FILTRATION RATE 13.6 (>45); GLUCOSE, FASTING 154 MG/DL (70-100); POTASSIUM SERUM 3.8 MEQ/L (3.5-5.1); SODIUM LEVEL 140 MEQ/L (136-145)
[2017-12-15 20:42] LABS: ERYTHROCYTE SEDIMENTATION RATE 58 mm/hr (0-30)
== END ==
DX: E11.9 Type 2 diabetes mellitus without complications (principal)

== ENCOUNTER → 2018-02-19 | Outpatient (REF) | payer MEDICARE, BC ==
[2018-02-19 14:26] LABS: BASO # 0.1 10^3/uL (0.0-0.2); EOS # 0.1 10^3/uL (0.0-0.50); EOS % 1.3 % (0.0-3.0); HEMATOCRIT 37.4 % (36.0-47.0); HEMOGLOBIN 12.3 g/dl (12.0-15.5); IMMATURE GRANULOCYTE % 0.1 % (0-3.0); LYMPH % 11.6 % (24.0-44.0); MEAN CORPUSCULAR HEMOGLOBIN 32.5 pg (27.0-33.0); MEAN CORPUSCULAR HGB CONC 32.9 g/dl (32.0-36.5); MEAN CORPUSCULAR VOLUME 98.9 fl (80.0-96.0); MONO # 0.5 10^3/uL (0.0-0.8); MONO % 5.9 % (0.0-5.0); NEUTROPHILS % 80.1 % (36.0-66.0); PLATELET COUNT, AUTOMATED 271 10^3/uL (150-450); RED BLOOD COUNT 3.78 10^6/uL (4.00-5.40); RED CELL DISTRIBUTION WIDTH 13.5 % (11.5-14.5); WHITE BLOOD COUNT 8.7 10^3/uL (4.0-10.0)
[2018-02-19 14:41] LABS: C REACTIVE PROTEIN QUANTITATIV 0.71 MG/DL (0.00-0.30)
[2018-02-19 15:47] LABS: ERYTHROCYTE SEDIMENTATION RATE 45 mm/hr (0-30)
== END ==
LOC: M LABDRAW1 11:08
DX: S82.841D Displaced bimalleolar fracture of right lower leg, subsequent encounter for closed fracture with routine healing (principal); L97.313 Non-pressure chronic ulcer of right ankle with necrosis of muscle; X58.XXXD Exposure to other specified factors, subsequent encounter; Z79.01 Long term (current) use of anticoagulants; Z79.899 Other long term (current) drug therapy
CPT/HCPCS: 86140

== ENCOUNTER → 2018-05-14 | Outpatient (CLI) | payer MEDICARE, BC | LOC: M RAD 09:53 | DX: S82.841K Displaced bimalleolar fracture of right lower leg, subsequent encounter for closed fracture with nonunion (principal); Z96.7 Presence of other bone and tendon implants | CPT/HCPCS: 73700 ==

== ENCOUNTER 2018-05-16 10:16 | Day surgery (SDC) | payer MEDICARE, BC ==
[2018-05-16] MEDS: CYCLOPENTOLATE 2% OPHTH SOLN 2ML BTL OS (11:10)
[2018-05-16] MEDS: TROPICAMIDE 1% OPHTH SOLN 2ML OS (11:10)
[2018-05-16] MEDS: OFLOXACIN 0.3 % (OCUFLOX) OPTH SOL 5ML OS (11:11)
[2018-05-16] MEDS: LIDOCAINE 3.5 % 1ML OPHTH TOPICAL GEL OU (11:11)
[2018-05-16] MEDS: PHENYLEPHRINE 2.5% OPHTH SOL 2ML OS (11:11)
[2018-05-16 11:24] LABS: POTASSIUM SERUM 4.2 MEQ/L (3.5-5.1)
[2018-05-16] MEDS ORDERED: MIDAZOLAM INJ 2 MG/2 ML VIAL (J2250) As Ordered (12:20)
[2018-05-16] MEDS ORDERED: fentaNYL 100 MCG/2 ML INJECTION (J3010) As Ordered (12:20)
[2018-05-16] MEDS: TRIAMCINOLONE PRES FR 40 MG/ML 1ML(TRIESENCE)(OR EYE ONLY)(J3300 PER 1MG) As Ordered (12:22)
[2018-05-16] MEDS: HEALON DUET (HEALON 10MG/ML 0.55ML & HEALON ENDOCOAT 30MG/ML 0.85ML) As Ordered (12:22)
[2018-05-16] MEDS: BSS with VANC/TOB/EPI for EYE CASES IR (12:22)
[2018-05-16] MEDS: POVIDONE-IODINE 5% OPHTH PREP SOL 30ML As Ordered (12:22)
[2018-05-16] MEDS: MOXIFLOXACIN IN BSS 0.25MG/0.25ML INTRACAMERAL INJ (OR EYE ONLY)(J2280) As Ordered (12:22)
[2018-05-16] MEDS: LIDOCAINE 1% SDV 5 ML VIAL As Ordered (12:22)
[2018-05-16] MEDS: LIDOCAINE 2% W/EPIN INJ 20ML **PRES FREE As Ordered (12:23)
[2018-05-16] MEDS: PHENYLEPHRINE HCL 10 % OPHTH. SOL 5ML OS (12:23)
== END 2018-05-16 13:18 | disposition home or self-care (01) ==
LOC: M SDC 10:16
DX: H25.9 Unspecified age-related cataract (principal); I48.91 Unspecified atrial fibrillation; E11.9 Type 2 diabetes mellitus without complications; I12.9 Hypertensive chronic kidney disease with stage 1 through stage 4 chronic kidney disease, or unspecified chronic kidney disease; N18.9 Chronic kidney disease, unspecified; E78.5 Hyperlipidemia, unspecified; Z79.01 Long term (current) use of anticoagulants; Z79.899 Other long term (current) drug therapy; Z88.2 Allergy status to sulfonamides; M10.9 Gout, unspecified; K21.9 Gastro-esophageal reflux disease without esophagitis; M81.0 Age-related osteoporosis without current pathological fracture
CPT/HCPCS: 66984

== ENCOUNTER → 2018-07-11 | Outpatient (CLI) | payer MEDICARE, BC ==
[2018-07-12 10:50] LABS: BASO # 0.1 10^3/uL (0.0-0.2); BASO % 0.9 % (0.0-1.0); EOS # 0.1 10^3/uL (0.0-0.50); EOS % 0.9 % (0.0-3.0); HEMATOCRIT 38.9 % (36.0-47.0); HEMOGLOBIN 11.7 g/dl (12.0-15.5); IMMATURE GRANULOCYTE % 0.3 % (0-3.0); LYMPH # 1.1 10^3/uL (1.5-4.5); LYMPH % 14.8 % (24.0-44.0); MEAN CORPUSCULAR HEMOGLOBIN 32.3 pg (27.0-33.0); MEAN CORPUSCULAR HGB CONC 30.1 g/dl (32.0-36.5); MEAN CORPUSCULAR VOLUME 107.5 fl (80.0-96.0); MONO # 0.6 10^3/uL (0.0-0.8); MONO % 8.7 % (0.0-5.0); NEUTROPHILS # 5.5 10^3/uL (1.8-7.7); NEUTROPHILS % 74.4 % (36.0-66.0); PLATELET COUNT, AUTOMATED 280 10^3/uL (150-450); RED BLOOD COUNT 3.62 10^6/uL (4.00-5.40); RED CELL DISTRIBUTION WIDTH 14.1 % (11.5-14.5); WHITE BLOOD COUNT 7.4 10^3/uL (4.0-10.0)
[2018-07-12 11:20] LABS: ANION GAP 9 MEQ/L (8-16); BLOOD UREA NITROGEN 20 MG/DL (7-18); CALCIUM LEVEL 10.2 MG/DL (8.8-10.2); CARBON DIOXIDE LEVEL 26 MEQ/L (21-32); CHLORIDE LEVEL 105 MEQ/L (98-107); CREATININE FOR GFR 3.35 MG/DL (0.55-1.30); GLOMERULAR FILTRATION RATE 14.5 (>45); GLUCOSE, FASTING 106 MG/DL (70-100); POTASSIUM SERUM 4.5 MEQ/L (3.5-5.1); SODIUM LEVEL 140 MEQ/L (136-145)
[2018-07-12 11:31] LABS: ESTIMATED AVERAGE GLUCOSE 88 MG/DL (60-110); HEMOGLOBIN A1c 4.7 %
== END ==
LOC: M SMT 12:00
DX: Z01.818 Encounter for other preprocedural examination (principal); E11.22 Type 2 diabetes mellitus with diabetic chronic kidney disease
CPT/HCPCS: 83036

== ENCOUNTER 2018-08-03 12:20 | Inpatient (IN) | payer MEDICARE, BC ==
[2018-08-03] MEDS ORDERED: ONDANSETRON 4 MG TAB (S0181) PO (15:15)
[2018-08-03] MEDS ORDERED: GLUCOSE 4 GM CHEW TABLET PO (16:00)
[2018-08-03] MEDS ORDERED: DOCUSATE SODIUM 100 MG CAP PO (16:00)
[2018-08-03] MEDS ORDERED: GLUCAGON FOR INJ 1 MG VIAL (J1610) SC (16:00)
[2018-08-03] MEDS ORDERED: DEXTROSE 50% 50 ML SYRINGE IV (16:00)
[2018-08-03 16:40] LABS: BEDSIDE GLUCOSE 110 MG/DL (80-115)
[2018-08-03] MEDS: oxyCODONE 5MG TAB PO (16:48)
[2018-08-03] MEDS: HumaLOG INSULIN (NovoLOG) PER UNIT SC ×2 (16:49→21:15)
[2018-08-03] MEDS ORDERED: WARFARIN SOD 5 MG TAB PO (17:00)
[2018-08-03 17:23] LABS: INR 1.08; PROTHROMBIN TIME 14.1 SECONDS (12.1-14.4)
[2018-08-03] MEDS ORDERED: HEPARIN SOD (PORCINE) 5000 UNITS/ML VIAL IV (17:30)
[2018-08-03] MEDS: WARFARIN SOD 5 MG TAB PO (17:51)
[2018-08-03] MEDS ORDERED: SODIUM CHLORIDE 0.9% INJ 10 ML SYR IV (18:00)
[2018-08-03 20:24] LABS: BEDSIDE GLUCOSE 143 MG/DL (80-115)
[2018-08-03] MEDS: METOPROLOL TART 25 MG TABLET PO (21:00)
[2018-08-03] MEDS: GABAPENTIN 100 MG CAP PO (21:16)
[2018-08-03] MEDS: PROPAFENONE 150 MG TAB PO (21:16)
[2018-08-03 22:07] LABS: APPEARANCE, URINE HAZY (CLEAR); BACTERIA, URINE AUTO 1+ (NEGATIVE); BILIRUBIN, URINE AUTO NEGATIVE (NEGATIVE); BLOOD, URINE BLOOD 1+ (NEGATIVE); COLOR, URINE YELLOW (YELLOW); GLUCOSE, URINE (UA) AUTO NEGATIVE (NEGATIVE); KETONE, URINE AUTO NEGATIVE (NEGATIVE); LEUKOCYTE ESTERASE, URINE AUTO 2+ (NEGATIVE); NITRITE, URINE AUTO NEGATIVE (NEGATIVE); PROTEIN, URINE AUTO 1+ mg/dL (NEGATIVE); RBC, URINE AUTO 5 /HPF (0-3); SPECIFIC GRAVITY URINE AUTO 1.009 (1.002-1.035); SQUAMOUS EPITHELIAL CELL UR AU 3 /HPF (0-6); UROBILINOGEN, URINE AUTO 0.2 mg/dL (0.0-2.0); WBC, URINE AUTO 28 /HPF (0-3)
[2018-08-04] MEDS ORDERED: SODIUM CHLORIDE 0.9% INJ 10 ML SYR IV ×4 (05:00→09:00)
[2018-08-04] MEDS: SODIUM CHLORIDE 0.9% INJ 10 ML SYR IV ×3 (06:13→17:47)
[2018-08-04 06:20] LABS: BASO # 0.1 10^3/uL (0.0-0.2); BASO % 1.5 % (0.0-1.0); EOS # 0.1 10^3/uL (0.0-0.50); EOS % 2.4 % (0.0-3.0); HEMATOCRIT 23.5 % (36.0-47.0); HEMOGLOBIN 7.7 g/dl (12.0-15.5); IMMATURE GRANULOCYTE % 0.7 % (0-3.0); LYMPH # 1.2 10^3/uL (1.5-4.5); LYMPH % 21.6 % (24.0-44.0); MEAN CORPUSCULAR HEMOGLOBIN 32.4 pg (27.0-33.0); MEAN CORPUSCULAR HGB CONC 32.8 g/dl (32.0-36.5); MEAN CORPUSCULAR VOLUME 98.7 fl (80.0-96.0); MONO # 0.7 10^3/uL (0.0-0.8); MONO % 12.3 % (0.0-5.0); NEUTROPHILS # 3.4 10^3/uL (1.8-7.7); NEUTROPHILS % 61.5 % (36.0-66.0); PLATELET COUNT, AUTOMATED 357 10^3/uL (150-450); RED BLOOD COUNT 2.38 10^6/uL (4.00-5.40); RED CELL DISTRIBUTION WIDTH 14.6 % (11.5-14.5); WHITE BLOOD COUNT 5.5 10^3/uL (4.0-10.0)
[2018-08-04 06:24] LABS: BEDSIDE GLUCOSE 86 MG/DL (80-115)
[2018-08-04 06:35] LABS: INR 1.01; PROTHROMBIN TIME 13.4 SECONDS (12.1-14.4)
[2018-08-04 06:54] LABS: ALBUMIN/GLOBULIN RATIO 0.63 (1.00-1.93); ALKALINE PHOSPHATASE 87 U/L (45-117); ALT/SGPT 7 U/L (12-78); ANION GAP 6 MEQ/L (8-16); AST/SGOT 9 U/L (7-37); BILIRUBIN,TOTAL 0.2 MG/DL (0.2-1.0); BLOOD UREA NITROGEN 15 MG/DL (7-18); CALCIUM LEVEL 9.4 MG/DL (8.8-10.2); CARBON DIOXIDE LEVEL 28 MEQ/L (21-32); CHLORIDE LEVEL 110 MEQ/L (98-107); CREATININE FOR GFR 3.03 MG/DL (0.55-1.30); GLOMERULAR FILTRATION RATE 16.3 (>45); GLUCOSE, FASTING 78 MG/DL (70-100); POTASSIUM SERUM 3.8 MEQ/L (3.5-5.1); SODIUM LEVEL 144 MEQ/L (136-145); TOTAL PROTEIN 5.2 GM/DL (6.4-8.2); VANCOMYCIN RANDOM 15.9 UG/ML
[2018-08-04] MEDS: HumaLOG INSULIN (NovoLOG) PER UNIT SC ×2 (07:30→12:07)
[2018-08-04] MEDS: PANTOPRAZOLE 40MG TAB (PROTONIX) PO (08:18)
[2018-08-04] MEDS: buPROPion **XL** TABLET 150MG (WELLBUTRIN XL) PO (08:18)
[2018-08-04] MEDS: CETIRIZINE (ZyrTEC) 10 MG TAB PO (08:18)
[2018-08-04] MEDS: PROPAFENONE 150 MG TAB PO ×2 (08:18→20:43)
[2018-08-04] MEDS: METOPROLOL TART 25 MG TABLET PO ×2 (08:19→20:44)
[2018-08-04] MEDS: VITAMIN B COMPLEX/VIT C CAP PO (08:19)
[2018-08-04] MEDS: oxyCODONE 5MG TAB PO ×3 (08:21→19:42)
[2018-08-04] MEDS: LIDOCAINE 1% SDV 5 ML VIAL SQ (09:45)
[2018-08-04] MEDS: HEPARIN 1,000 UNITS/ML 10ML VIAL (FOR RADIOLOGY& DIALYSIS ONLY) IV (09:45)
[2018-08-04 11:39] LABS: BEDSIDE GLUCOSE 123 MG/DL (80-115)
[2018-08-04 14:00] LABS: IMMEDIATE SPIN CROSSMATCH 1 2
[2018-08-04] MEDS ORDERED: WARFARIN SOD 5 MG TAB PO (17:00)
[2018-08-04] MEDS: CEFEPIME HCL 2 GM in D5W MINI-BAG PLUS 50 ML IV (17:47)
[2018-08-04] MEDS: WARFARIN SOD 3 MG TAB PO (17:47)
[2018-08-04] MEDS: VANCOMYCIN HCL 1,000 MG, VIAL MATE ADAPTER 1 EACH in D5W 250 ML IV (18:29)
[2018-08-04 20:32] LABS: BEDSIDE GLUCOSE 235 MG/DL (80-115)
[2018-08-04] MEDS: GABAPENTIN 100 MG CAP PO (20:43)
[2018-08-05] MEDS: SODIUM CHLORIDE 0.9% INJ 10 ML SYR IV ×3 (05:36→17:19)
[2018-08-05 06:00] LABS: INR 1.04; PROTHROMBIN TIME 13.7 SECONDS (12.1-14.4)
[2018-08-05] MEDS: PANTOPRAZOLE 40MG TAB (PROTONIX) PO (08:16)
[2018-08-05] MEDS: VITAMIN B COMPLEX/VIT C CAP PO (08:16)
[2018-08-05] MEDS: METOPROLOL TART 25 MG TABLET PO ×2 (08:16→20:27)
[2018-08-05] MEDS: buPROPion **XL** TABLET 150MG (WELLBUTRIN XL) PO (08:17)
[2018-08-05] MEDS: PROPAFENONE 150 MG TAB PO ×2 (08:17→20:27)
[2018-08-05] MEDS: oxyCODONE 5MG TAB PO ×3 (08:17→20:28)
[2018-08-05] MEDS: CETIRIZINE (ZyrTEC) 10 MG TAB PO (08:17)
[2018-08-05 10:58] LABS: ANION GAP 8 MEQ/L (8-16); BLOOD UREA NITROGEN 9 MG/DL (7-18); CALCIUM LEVEL 9.2 MG/DL (8.8-10.2); CARBON DIOXIDE LEVEL 28 MEQ/L (21-32); CHLORIDE LEVEL 108 MEQ/L (98-107); CREATININE FOR GFR 2.39 MG/DL (0.55-1.30); GLOMERULAR FILTRATION RATE 21.5 (>45); GLUCOSE, FASTING 135 MG/DL (70-100); POTASSIUM SERUM 3.9 MEQ/L (3.5-5.1); SODIUM LEVEL 144 MEQ/L (136-145)
[2018-08-05 13:01] LABS: HEMATOCRIT 29.6 % (36.0-47.0); HEMOGLOBIN 9.8 g/dl (12.0-15.5); MEAN CORPUSCULAR HEMOGLOBIN 32.1 pg (27.0-33.0); MEAN CORPUSCULAR HGB CONC 33.1 g/dl (32.0-36.5); PLATELET COUNT, AUTOMATED 299 10^3/uL (150-450); RED BLOOD COUNT 3.05 10^6/uL (4.00-5.40); RED CELL DISTRIBUTION WIDTH 15.1 % (11.5-14.5); WHITE BLOOD COUNT 8.4 10^3/uL (4.0-10.0)
[2018-08-05] MEDS: WARFARIN SOD 7.5 MG TAB PO (15:46)
[2018-08-05] MEDS: GABAPENTIN 100 MG CAP PO (20:28)
[2018-08-06] MEDS: SODIUM CHLORIDE 0.9% INJ 10 ML SYR IV ×2 (06:00→17:02)
[2018-08-06 06:19] LABS: HEMATOCRIT 28.6 % (36.0-47.0); HEMOGLOBIN 9.3 g/dl (12.0-15.5); MEAN CORPUSCULAR HGB CONC 32.5 g/dl (32.0-36.5); MEAN CORPUSCULAR VOLUME 98.3 fl (80.0-96.0); PLATELET COUNT, AUTOMATED 292 10^3/uL (150-450); RED BLOOD COUNT 2.91 10^6/uL (4.00-5.40); RED CELL DISTRIBUTION WIDTH 14.7 % (11.5-14.5); WHITE BLOOD COUNT 5.9 10^3/uL (4.0-10.0)
[2018-08-06 06:32] LABS: INR 1.26
[2018-08-06] MEDS: PANTOPRAZOLE 40MG TAB (PROTONIX) PO (08:47)
[2018-08-06] MEDS: buPROPion **XL** TABLET 150MG (WELLBUTRIN XL) PO (08:47)
[2018-08-06] MEDS: CETIRIZINE (ZyrTEC) 10 MG TAB PO (08:47)
[2018-08-06] MEDS: PROPAFENONE 150 MG TAB PO ×2 (08:47→20:55)
[2018-08-06] MEDS: VITAMIN B COMPLEX/VIT C CAP PO (08:47)
[2018-08-06] MEDS: oxyCODONE 5MG TAB PO ×3 (08:49→20:55)
[2018-08-06] MEDS: METOPROLOL TART 25 MG TABLET PO ×2 (09:00→20:55)
[2018-08-06] MEDS ORDERED: DARBEPOETIN 100 MCG/0.5 ML *DIALYSIS* SYRINGE (J0882) IV (09:00)
[2018-08-06] MEDS: **NOTE PATIENT COMMENT** MISC XX (16:00)
[2018-08-06] MEDS: WARFARIN SOD 7.5 MG TAB PO (17:02)
[2018-08-06] MEDS: GABAPENTIN 100 MG CAP PO (20:55)
[2018-08-07] MEDS: oxyCODONE 5MG TAB PO ×4 (03:00→22:03)
[2018-08-07] MEDS: SODIUM CHLORIDE 0.9% INJ 10 ML SYR IV ×2 (05:56→21:56)
[2018-08-07 06:02] LABS: INR 1.51; PROTHROMBIN TIME 18.5 SECONDS (12.1-14.4)
[2018-08-07 06:17] LABS: VANCOMYCIN RANDOM 14.3 UG/ML
[2018-08-07 08:39] LABS: ALBUMIN 1.9 GM/DL (3.2-5.2); ANION GAP 6 MEQ/L (8-16); BLOOD UREA NITROGEN 19 MG/DL (7-18); CALCIUM LEVEL 9.3 MG/DL (8.8-10.2); CARBON DIOXIDE LEVEL 27 MEQ/L (21-32); CHLORIDE LEVEL 108 MEQ/L (98-107); CREATININE FOR GFR 3.06 MG/DL (0.55-1.30); GLOMERULAR FILTRATION RATE 16.1 (>45); GLUCOSE, FASTING 97 MG/DL (70-100); PHOSPHORUS LEVEL 2.6 MG/DL (2.5-4.9); POTASSIUM SERUM 3.8 MEQ/L (3.5-5.1); SODIUM LEVEL 141 MEQ/L (136-145)
[2018-08-07] MEDS: VITAMIN B COMPLEX/VIT C CAP PO (08:41)
[2018-08-07] MEDS: PROPAFENONE 150 MG TAB PO ×2 (08:41→21:55)
[2018-08-07] MEDS: CETIRIZINE (ZyrTEC) 10 MG TAB PO (08:42)
[2018-08-07] MEDS: PANTOPRAZOLE 40MG TAB (PROTONIX) PO (08:42)
[2018-08-07] MEDS: buPROPion **XL** TABLET 150MG (WELLBUTRIN XL) PO (08:42)
[2018-08-07] MEDS: METOPROLOL TART 25 MG TABLET PO ×2 (08:42→21:00)
[2018-08-07] MEDS: VANCOMYCIN HCL 500 MG in D5W MINI-BAG PLUS 100 ML IV (10:13)
[2018-08-07 10:29] LABS: HEMATOCRIT 31.9 % (36.0-47.0); HEMOGLOBIN 10.3 g/dl (12.0-15.5); MEAN CORPUSCULAR HGB CONC 32.3 g/dl (32.0-36.5); MEAN CORPUSCULAR VOLUME 99.1 fl (80.0-96.0); PLATELET COUNT, AUTOMATED 337 10^3/uL (150-450); RED BLOOD COUNT 3.22 10^6/uL (4.00-5.40); RED CELL DISTRIBUTION WIDTH 14.6 % (11.5-14.5); WHITE BLOOD COUNT 9.7 10^3/uL (4.0-10.0)
[2018-08-07] MEDS: HEPARIN 1,000 UNITS/ML 10ML VIAL (FOR RADIOLOGY& DIALYSIS ONLY) IV (12:00)
[2018-08-07] MEDS: **NOTE PATIENT COMMENT** MISC XX (16:00)
[2018-08-07] MEDS: VANCOMYCIN HCL 1,000 MG, VIAL MATE ADAPTER 1 EACH in D5W 250 ML IV (17:56)
[2018-08-07] MEDS: WARFARIN SOD 7.5 MG TAB PO (18:01)
[2018-08-07] MEDS: GABAPENTIN 100 MG CAP PO (21:55)
[2018-08-07] MEDS: CEFEPIME HCL 1 GM in D5W MINI-BAG PLUS 50 ML IV (21:59)
[2018-08-08] MEDS: SODIUM CHLORIDE 0.9% INJ 10 ML SYR IV ×2 (06:43→18:39)
[2018-08-08 07:16] LABS: INR 1.67
[2018-08-08] MEDS: PROPAFENONE 150 MG TAB PO ×2 (08:24→22:08)
[2018-08-08] MEDS: CETIRIZINE (ZyrTEC) 10 MG TAB PO (08:24)
[2018-08-08] MEDS: buPROPion **XL** TABLET 150MG (WELLBUTRIN XL) PO (08:24)
[2018-08-08] MEDS: VITAMIN B COMPLEX/VIT C CAP PO (08:24)
[2018-08-08] MEDS: oxyCODONE 5MG TAB PO ×3 (08:25→22:08)
[2018-08-08] MEDS: PANTOPRAZOLE 40MG TAB (PROTONIX) PO (08:25)
[2018-08-08] MEDS: METOPROLOL TART 25 MG TABLET PO ×2 (08:27→22:07)
[2018-08-08] MEDS: **NOTE PATIENT COMMENT** MISC XX (14:59)
[2018-08-08] MEDS: WARFARIN SOD 7.5 MG TAB PO (18:38)
[2018-08-08] MEDS: GABAPENTIN 100 MG CAP PO (22:08)
[2018-08-09] MEDS: SODIUM CHLORIDE 0.9% INJ 10 ML SYR IV ×3 (05:36→18:00)
[2018-08-09 05:57] LABS: INR 1.81; PROTHROMBIN TIME 21.3 SECONDS (12.1-14.4)
[2018-08-09] MEDS: PROPAFENONE 150 MG TAB PO ×2 (08:58→20:52)
[2018-08-09] MEDS: PANTOPRAZOLE 40MG TAB (PROTONIX) PO (08:58)
[2018-08-09] MEDS: buPROPion **XL** TABLET 150MG (WELLBUTRIN XL) PO (08:58)
[2018-08-09] MEDS: VITAMIN B COMPLEX/VIT C CAP PO (08:58)
[2018-08-09] MEDS: oxyCODONE 5MG TAB PO ×3 (08:58→20:56)
[2018-08-09] MEDS: CETIRIZINE (ZyrTEC) 10 MG TAB PO (08:58)
[2018-08-09] MEDS: METOPROLOL TART 25 MG TABLET PO ×2 (09:00→20:51)
[2018-08-09] MEDS: HEPARIN 1,000 UNITS/ML 10ML VIAL (FOR RADIOLOGY& DIALYSIS ONLY) IV (13:00)
[2018-08-09] MEDS: WARFARIN SOD 7.5 MG TAB PO (16:06)
[2018-08-09] MEDS: CEFEPIME HCL 1 GM in D5W MINI-BAG PLUS 50 ML IV (16:07)
[2018-08-09] MEDS: VANCOMYCIN HCL 1,000 MG, VIAL MATE ADAPTER 1 EACH in D5W 250 ML IV (16:48)
[2018-08-09] MEDS: **NOTE PATIENT COMMENT** MISC XX (16:49)
[2018-08-09] MEDS: GABAPENTIN 100 MG CAP PO (20:52)
[2018-08-10] MEDS: SODIUM CHLORIDE 0.9% INJ 10 ML SYR IV ×2 (05:41→17:49)
[2018-08-10 06:13] LABS: INR 2.08; PROTHROMBIN TIME 23.8 SECONDS (12.1-14.4)
[2018-08-10] MEDS: oxyCODONE 5MG TAB PO ×4 (08:21→22:04)
[2018-08-10] MEDS: VITAMIN B COMPLEX/VIT C CAP PO (09:50)
[2018-08-10] MEDS: METOPROLOL TART 25 MG TABLET PO ×2 (09:50→22:04)
[2018-08-10] MEDS: PANTOPRAZOLE 40MG TAB (PROTONIX) PO (09:50)
[2018-08-10] MEDS: CETIRIZINE (ZyrTEC) 10 MG TAB PO (09:50)
[2018-08-10] MEDS: PROPAFENONE 150 MG TAB PO ×2 (09:51→22:03)
[2018-08-10] MEDS: buPROPion **XL** TABLET 150MG (WELLBUTRIN XL) PO (09:51)
[2018-08-10] MEDS: **NOTE PATIENT COMMENT** MISC XX (10:36)
[2018-08-10 16:57] LABS: BEDSIDE GLUCOSE 182 MG/DL (80-115)
[2018-08-10] MEDS: WARFARIN SOD 5 MG TAB PO (17:44)
[2018-08-10] MEDS: GABAPENTIN 100 MG CAP PO (22:03)
[2018-08-11 05:29] LABS: BEDSIDE GLUCOSE 108 MG/DL (80-115)
[2018-08-11] MEDS: SODIUM CHLORIDE 0.9% INJ 10 ML SYR IV ×2 (06:19→21:44)
[2018-08-11] MEDS: PANTOPRAZOLE 40MG TAB (PROTONIX) PO (06:20)
[2018-08-11] MEDS: METOPROLOL TART 25 MG TABLET PO ×2 (06:21→21:00)
[2018-08-11] MEDS: PROPAFENONE 150 MG TAB PO ×2 (06:21→21:43)
[2018-08-11] MEDS: CETIRIZINE (ZyrTEC) 10 MG TAB PO (06:21)
[2018-08-11] MEDS: buPROPion **XL** TABLET 150MG (WELLBUTRIN XL) PO (06:21)
[2018-08-11] MEDS: VITAMIN B COMPLEX/VIT C CAP PO (06:21)
[2018-08-11 07:14] LABS: VANCOMYCIN RANDOM 19.7 UG/ML
[2018-08-11 07:17] LABS: PROTHROMBIN TIME 24.9 SECONDS (12.1-14.4)
[2018-08-11 11:14] LABS: HEMATOCRIT 30.5 % (36.0-47.0); HEMOGLOBIN 9.9 g/dl (12.0-15.5); MEAN CORPUSCULAR HEMOGLOBIN 32.4 pg (27.0-33.0); MEAN CORPUSCULAR HGB CONC 32.5 g/dl (32.0-36.5); MEAN CORPUSCULAR VOLUME 99.7 fl (80.0-96.0); PLATELET COUNT, AUTOMATED 336 10^3/uL (150-450); RED BLOOD COUNT 3.06 10^6/uL (4.00-5.40); RED CELL DISTRIBUTION WIDTH 15.3 % (11.5-14.5); WHITE BLOOD COUNT 7.3 10^3/uL (4.0-10.0)
[2018-08-11 11:35] LABS: ANION GAP 10 MEQ/L (8-16); BLOOD UREA NITROGEN 17 MG/DL (7-18); CARBON DIOXIDE LEVEL 25 MEQ/L (21-32); CHLORIDE LEVEL 104 MEQ/L (98-107); CREATININE FOR GFR 3.24 MG/DL (0.55-1.30); GLOMERULAR FILTRATION RATE 15.1 (>45); GLUCOSE, FASTING 114 MG/DL (70-100); POTASSIUM SERUM 4.4 MEQ/L (3.5-5.1); SODIUM LEVEL 139 MEQ/L (136-145)
[2018-08-11] MEDS: HEPARIN 1,000 UNITS/ML 10ML VIAL (FOR RADIOLOGY& DIALYSIS ONLY) IV (12:15)
[2018-08-11] MEDS: oxyCODONE 5MG TAB PO ×3 (12:50→21:44)
[2018-08-11] MEDS: CEFEPIME HCL 2 GM in D5W MINI-BAG PLUS 50 ML IV (14:21)
[2018-08-11] MEDS: ACETAMINOPHEN TAB 650MG DOSE (2X325MG) PO (15:24)
[2018-08-11] MEDS: VANCOMYCIN HCL 1,000 MG, VIAL MATE ADAPTER 1 EACH in D5W 250 ML IV (15:51)
[2018-08-11] MEDS: **NOTE PATIENT COMMENT** MISC XX (16:00)
[2018-08-11 16:46] LABS: BEDSIDE GLUCOSE 188 MG/DL (80-115)
[2018-08-11] MEDS: WARFARIN SOD 5 MG TAB PO (17:30)
[2018-08-11] MEDS: GABAPENTIN 100 MG CAP PO (21:43)
[2018-08-12 05:43] LABS: BEDSIDE GLUCOSE 103 MG/DL (80-115)
[2018-08-12] MEDS: SODIUM CHLORIDE 0.9% INJ 10 ML SYR IV ×3 (06:21→20:50)
[2018-08-12] MEDS: oxyCODONE 5MG TAB PO ×3 (06:27→20:49)
[2018-08-12 07:03] LABS: PROTHROMBIN TIME 24.9 SECONDS (12.1-14.4)
[2018-08-12] MEDS: METOPROLOL TART 25 MG TABLET PO ×2 (08:07→20:50)
[2018-08-12] MEDS: buPROPion **XL** TABLET 150MG (WELLBUTRIN XL) PO (08:11)
[2018-08-12] MEDS: PROPAFENONE 150 MG TAB PO ×2 (08:11→20:48)
[2018-08-12] MEDS: VITAMIN B COMPLEX/VIT C CAP PO (08:11)
[2018-08-12] MEDS: PANTOPRAZOLE 40MG TAB (PROTONIX) PO (08:12)
[2018-08-12] MEDS: CETIRIZINE (ZyrTEC) 10 MG TAB PO (08:12)
[2018-08-12] MEDS: ACETAMINOPHEN TAB 650MG DOSE (2X325MG) PO (14:08)
[2018-08-12] MEDS: **NOTE PATIENT COMMENT** MISC XX (15:23)
[2018-08-12] MEDS: WARFARIN SOD 5 MG TAB PO (16:18)
[2018-08-12 19:21] LABS: BEDSIDE GLUCOSE 163 MG/DL (80-115)
[2018-08-12] MEDS: GABAPENTIN 100 MG CAP PO (20:49)
[2018-08-13 05:28] LABS: BEDSIDE GLUCOSE 86 MG/DL (80-115)
[2018-08-13] MEDS: SODIUM CHLORIDE 0.9% INJ 10 ML SYR IV ×5 (05:36→22:00)
[2018-08-13 05:55] LABS: INR 2.32; PROTHROMBIN TIME 25.9 SECONDS (12.1-14.4)
[2018-08-13] MEDS: oxyCODONE 5MG TAB PO ×3 (08:52→22:01)
[2018-08-13] MEDS: PANTOPRAZOLE 40MG TAB (PROTONIX) PO (09:22)
[2018-08-13] MEDS: buPROPion **XL** TABLET 150MG (WELLBUTRIN XL) PO (09:22)
[2018-08-13] MEDS: PROPAFENONE 150 MG TAB PO ×2 (09:22→21:06)
[2018-08-13] MEDS: CETIRIZINE (ZyrTEC) 10 MG TAB PO (09:22)
[2018-08-13] MEDS: METOPROLOL TART 25 MG TABLET PO ×2 (09:23→21:05)
[2018-08-13] MEDS: HEPARIN 1,000 UNITS/ML 10ML VIAL (FOR RADIOLOGY& DIALYSIS ONLY) IV (10:00)
[2018-08-13] MEDS: VITAMIN B COMPLEX/VIT C CAP PO (11:11)
[2018-08-13 12:25] LABS: HEMATOCRIT 30.4 % (36.0-47.0); HEMOGLOBIN 9.7 g/dl (12.0-15.5); MEAN CORPUSCULAR HEMOGLOBIN 32.2 pg (27.0-33.0); MEAN CORPUSCULAR HGB CONC 31.9 g/dl (32.0-36.5); PLATELET COUNT, AUTOMATED 311 10^3/uL (150-450); RED BLOOD COUNT 3.01 10^6/uL (4.00-5.40); RED CELL DISTRIBUTION WIDTH 15.3 % (11.5-14.5); WHITE BLOOD COUNT 8.3 10^3/uL (4.0-10.0)
[2018-08-13 12:28] LABS: ANION GAP 5 MEQ/L (8-16); BLOOD UREA NITROGEN 20 MG/DL (7-18); CALCIUM LEVEL 9.7 MG/DL (8.8-10.2); CARBON DIOXIDE LEVEL 31 MEQ/L (21-32); CHLORIDE LEVEL 104 MEQ/L (98-107); GLOMERULAR FILTRATION RATE 13.4 (>45); GLUCOSE, FASTING 101 MG/DL (70-100); POTASSIUM SERUM 4.4 MEQ/L (3.5-5.1); SODIUM LEVEL 140 MEQ/L (136-145)
[2018-08-13 13:07] LABS: C REACTIVE PROTEIN QUANTITATIV 2.66 MG/DL (0.00-0.30)
[2018-08-13] MEDS: **NOTE PATIENT COMMENT** MISC XX (16:00)
[2018-08-13] MEDS: VANCOMYCIN HCL 1,000 MG, VIAL MATE ADAPTER 1 EACH in D5W 250 ML IV (17:20)
[2018-08-13] MEDS: WARFARIN SOD 5 MG TAB PO (17:21)
[2018-08-13 17:36] LABS: BEDSIDE GLUCOSE 151 MG/DL (80-115)
[2018-08-13] MEDS: CEFEPIME HCL 2 GM in D5W MINI-BAG PLUS 50 ML IV (18:47)
[2018-08-13] MEDS: GABAPENTIN 100 MG CAP PO (21:05)
[2018-08-14] MEDS: SODIUM CHLORIDE 0.9% INJ 10 ML SYR IV (05:48)
[2018-08-14] MEDS: VITAMIN B COMPLEX/VIT C CAP PO (09:06)
[2018-08-14] MEDS: PANTOPRAZOLE 40MG TAB (PROTONIX) PO (09:07)
[2018-08-14] MEDS: METOPROLOL TART 25 MG TABLET PO (09:07)
[2018-08-14] MEDS: buPROPion **XL** TABLET 150MG (WELLBUTRIN XL) PO (09:07)
[2018-08-14] MEDS: PROPAFENONE 150 MG TAB PO (09:07)
[2018-08-14] MEDS: oxyCODONE 5MG TAB PO (09:09)
[2018-08-14] MEDS: CETIRIZINE (ZyrTEC) 10 MG TAB PO (09:10)
== END 2018-08-14 12:35 | disposition home health service (06) | DRG 564 ==
LOC: M PM&R 12:20
PROVIDERS: Physical Medicine & Rehabilitation
PROC: 5A1D70Z Performance of Urinary Filtration, Intermittent, Less than 6 Hours Per Day (ICD-10-PCS; principal; 2018-08-04)
PROC: 30233N1 Transfusion of Nonautologous Red Blood Cells into Peripheral Vein, Percutaneous Approach (ICD-10-PCS; 2018-08-04)
DX: S82.201K Unspecified fracture of shaft of right tibia, subsequent encounter for closed fracture with nonunion (principal); N18.6 End stage renal disease; I12.0 Hypertensive chronic kidney disease with stage 5 chronic kidney disease or end stage renal disease; E46 Unspecified protein-calorie malnutrition; M86.671 Other chronic osteomyelitis, right ankle and foot; E11.69 Type 2 diabetes mellitus with other specified complication; I48.2 Chronic atrial fibrillation; E78.5 Hyperlipidemia, unspecified; Z88.2 Allergy status to sulfonamides; E78.00 Pure hypercholesterolemia, unspecified; E11.22 Type 2 diabetes mellitus with diabetic chronic kidney disease; W01.0XXD Fall on same level from slipping, tripping and stumbling without subsequent striking against object, subsequent encounter; J30.9 Allergic rhinitis, unspecified; M81.0 Age-related osteoporosis without current pathological fracture; T84.622D Infection and inflammatory reaction due to internal fixation device of right tibia, subsequent encounter; Z98.41 Cataract extraction status, right eye; Z88.5 Allergy status to narcotic agent; Z95.828 Presence of other vascular implants and grafts; Z90.710 Acquired absence of both cervix and uterus; Z79.899 Other long term (current) drug therapy; Z79.01 Long term (current) use of anticoagulants; Z79.84 Long term (current) use of oral hypoglycemic drugs; Z99.2 Dependence on renal dialysis

== ENCOUNTER → 2018-08-16 | Outpatient (REF) | payer MEDICARE, BC ==
[2018-08-16 19:26] LABS: BASO # 0.1 10^3/uL (0.0-0.2); BASO % 1.2 % (0.0-1.0); EOS # 0.1 10^3/uL (0.0-0.50); EOS % 2.5 % (0.0-3.0); HEMATOCRIT 32.1 % (36.0-47.0); HEMOGLOBIN 10.4 g/dl (12.0-15.5); IMMATURE GRANULOCYTE % 0.4 % (0-3.0); LYMPH # 0.7 10^3/uL (1.5-4.5); LYMPH % 12.5 % (24.0-44.0); MEAN CORPUSCULAR HEMOGLOBIN 32.2 pg (27.0-33.0); MEAN CORPUSCULAR HGB CONC 32.4 g/dl (32.0-36.5); MEAN CORPUSCULAR VOLUME 99.4 fl (80.0-96.0); MONO # 0.8 10^3/uL (0.0-0.8); MONO % 13.3 % (0.0-5.0); NEUTROPHILS # 3.9 10^3/uL (1.8-7.7); NEUTROPHILS % 70.1 % (36.0-66.0); PLATELET COUNT, AUTOMATED 282 10^3/uL (150-450); RED BLOOD COUNT 3.23 10^6/uL (4.00-5.40); RED CELL DISTRIBUTION WIDTH 15.4 % (11.5-14.5); WHITE BLOOD COUNT 5.6 10^3/uL (4.0-10.0)
[2018-08-16 19:54] LABS: ALBUMIN 2.5 GM/DL (3.2-5.2); ALBUMIN/GLOBULIN RATIO 0.69 (1.00-1.93); ALKALINE PHOSPHATASE 123 U/L (45-117); ALT/SGPT 13 U/L (12-78); ANION GAP 6 MEQ/L (8-16); AST/SGOT 12 U/L (7-37); BILIRUBIN,TOTAL 0.3 MG/DL (0.2-1.0); BLOOD UREA NITROGEN 7 MG/DL (7-18); C REACTIVE PROTEIN QUANTITATIV 1.52 MG/DL (0.00-0.30); CALCIUM LEVEL 8.3 MG/DL (8.8-10.2); CARBON DIOXIDE LEVEL 31 MEQ/L (21-32); CHLORIDE LEVEL 104 MEQ/L (98-107); CREATININE FOR GFR 1.43 MG/DL (0.55-1.30); GLOMERULAR FILTRATION RATE 38.8 (>45); GLUCOSE, FASTING 89 MG/DL (70-100); POTASSIUM SERUM 3.7 MEQ/L (3.5-5.1); SODIUM LEVEL 141 MEQ/L (136-145); TOTAL PROTEIN 6.1 GM/DL (6.4-8.2); VANCOMYCIN LEVEL TROUGH 10.7 UG/ML (10.0-20.0)
[2018-08-16 19:56] LABS: ERYTHROCYTE SEDIMENTATION RATE 49 mm/hr (0-30)
== END ==
LOC: M LAB REF 18:46
DX: N18.9 Chronic kidney disease, unspecified (principal); Z99.2 Dependence on renal dialysis
CPT/HCPCS: 80053

== ENCOUNTER → 2018-08-23 | Outpatient (REF) | payer MEDICARE, BC ==
[2018-08-23 17:50] LABS: BASO # 0.1 10^3/uL (0.0-0.2); BASO % 1.6 % (0.0-1.0); EOS # 0.1 10^3/uL (0.0-0.50); EOS % 2.3 % (0.0-3.0); HEMATOCRIT 33.1 % (36.0-47.0); HEMOGLOBIN 10.8 g/dl (12.0-15.5); IMMATURE GRANULOCYTE % 0.3 % (0-3.0); LYMPH # 0.8 10^3/uL (1.5-4.5); LYMPH % 13.3 % (24.0-44.0); MEAN CORPUSCULAR HEMOGLOBIN 32.2 pg (27.0-33.0); MEAN CORPUSCULAR HGB CONC 32.6 g/dl (32.0-36.5); MEAN CORPUSCULAR VOLUME 98.8 fl (80.0-96.0); MONO # 0.8 10^3/uL (0.0-0.8); MONO % 12.5 % (0.0-5.0); NEUTROPHILS # 4.4 10^3/uL (1.8-7.7); PLATELET COUNT, AUTOMATED 282 10^3/uL (150-450); RED BLOOD COUNT 3.35 10^6/uL (4.00-5.40); RED CELL DISTRIBUTION WIDTH 14.6 % (11.5-14.5); WHITE BLOOD COUNT 6.2 10^3/uL (4.0-10.0)
[2018-08-23 18:26] LABS: ALBUMIN 2.7 GM/DL (3.2-5.2); ALBUMIN/GLOBULIN RATIO 0.71 (1.00-1.93); ALKALINE PHOSPHATASE 110 U/L (45-117); ALT/SGPT 13 U/L (12-78); ANION GAP 8 MEQ/L (8-16); AST/SGOT 11 U/L (7-37); BILIRUBIN,TOTAL 0.3 MG/DL (0.2-1.0); BLOOD UREA NITROGEN 6 MG/DL (7-18); C REACTIVE PROTEIN QUANTITATIV 0.68 MG/DL (0.00-0.30); CALCIUM LEVEL 8.5 MG/DL (8.8-10.2); CARBON DIOXIDE LEVEL 30 MEQ/L (21-32); CHLORIDE LEVEL 103 MEQ/L (98-107); CREATININE FOR GFR 1.32 MG/DL (0.55-1.30); GLOMERULAR FILTRATION RATE 42.6 (>45); GLUCOSE, FASTING 147 MG/DL (70-100); POTASSIUM SERUM 3.4 MEQ/L (3.5-5.1); SODIUM LEVEL 141 MEQ/L (136-145); TOTAL PROTEIN 6.5 GM/DL (6.4-8.2); VANCOMYCIN LEVEL TROUGH 11.2 UG/ML (10.0-20.0)
[2018-08-23 18:36] LABS: ERYTHROCYTE SEDIMENTATION RATE 39 mm/hr (0-30)
== END ==
LOC: M LAB REF 17:39
DX: Z00.00 Encounter for general adult medical examination without abnormal findings (principal)
CPT/HCPCS: 80053

== ENCOUNTER → 2018-08-28 | Outpatient (REF) | payer MEDICARE, BC ==
[2018-08-28 18:37] LABS: ALBUMIN 2.7 GM/DL (3.2-5.2); ALBUMIN/GLOBULIN RATIO 0.73 (1.00-1.93); ALKALINE PHOSPHATASE 99 U/L (45-117); ALT/SGPT 13 U/L (12-78); ANION GAP 9 MEQ/L (8-16); AST/SGOT 14 U/L (7-37); BILIRUBIN,TOTAL 0.2 MG/DL (0.2-1.0); BLOOD UREA NITROGEN 7 MG/DL (7-18); C REACTIVE PROTEIN QUANTITATIV 0.48 MG/DL (0.00-0.30); CALCIUM LEVEL 8.6 MG/DL (8.8-10.2); CARBON DIOXIDE LEVEL 29 MEQ/L (21-32); CHLORIDE LEVEL 101 MEQ/L (98-107); CREATININE FOR GFR 1.48 MG/DL (0.55-1.30); GLOMERULAR FILTRATION RATE 37.3 (>45); GLUCOSE, FASTING 172 MG/DL (70-100); POTASSIUM SERUM 3.4 MEQ/L (3.5-5.1); SODIUM LEVEL 139 MEQ/L (136-145); TOTAL PROTEIN 6.4 GM/DL (6.4-8.2)
[2018-08-28 18:50] LABS: BASO # 0.1 10^3/uL (0.0-0.2); BASO % 1.4 % (0.0-1.0); EOS # 0.2 10^3/uL (0.0-0.50); EOS % 1.8 % (0.0-3.0); HEMATOCRIT 31.5 % (36.0-47.0); HEMOGLOBIN 10.4 g/dl (12.0-15.5); IMMATURE GRANULOCYTE % 0.2 % (0-3.0); LYMPH # 0.9 10^3/uL (1.5-4.5); LYMPH % 10.3 % (24.0-44.0); MEAN CORPUSCULAR VOLUME 96.9 fl (80.0-96.0); MONO # 0.7 10^3/uL (0.0-0.8); MONO % 8.1 % (0.0-5.0); NEUTROPHILS # 6.5 10^3/uL (1.8-7.7); NEUTROPHILS % 78.2 % (36.0-66.0); PLATELET COUNT, AUTOMATED 265 10^3/uL (150-450); RED BLOOD COUNT 3.25 10^6/uL (4.00-5.40); RED CELL DISTRIBUTION WIDTH 13.8 % (11.5-14.5); WHITE BLOOD COUNT 8.3 10^3/uL (4.0-10.0)
[2018-08-28 21:09] LABS: ERYTHROCYTE SEDIMENTATION RATE 43 mm/hr (0-30)
== END ==
LOC: M LAB REF 17:17
DX: T81.40XA Infection following a procedure, unspecified, initial encounter (principal); T84.60XA Infection and inflammatory reaction due to internal fixation device of unspecified site, initial encounter; Y82.9 Unspecified medical devices associated with adverse incidents
CPT/HCPCS: 80053

== ENCOUNTER → 2018-09-04 | Outpatient (REF) | payer MEDICARE, BC ==
[2018-09-04 19:06] LABS: BASO # 0.1 10^3/uL (0.0-0.2); BASO % 1.3 % (0.0-1.0); EOS # 0.1 10^3/uL (0.0-0.50); EOS % 1.2 % (0.0-3.0); HEMOGLOBIN 11.6 g/dl (12.0-15.5); IMMATURE GRANULOCYTE % 0.2 % (0-3.0); LYMPH # 0.8 10^3/uL (1.5-4.5); LYMPH % 9.7 % (24.0-44.0); MEAN CORPUSCULAR HEMOGLOBIN 32.8 pg (27.0-33.0); MEAN CORPUSCULAR HGB CONC 33.1 g/dl (32.0-36.5); MEAN CORPUSCULAR VOLUME 98.9 fl (80.0-96.0); MONO # 0.7 10^3/uL (0.0-0.8); MONO % 8.1 % (0.0-5.0); NEUTROPHILS # 6.8 10^3/uL (1.8-7.7); NEUTROPHILS % 79.5 % (36.0-66.0); PLATELET COUNT, AUTOMATED 261 10^3/uL (150-450); RED BLOOD COUNT 3.54 10^6/uL (4.00-5.40); RED CELL DISTRIBUTION WIDTH 14.1 % (11.5-14.5); WHITE BLOOD COUNT 8.5 10^3/uL (4.0-10.0)
[2018-09-04 19:29] LABS: ALBUMIN 2.9 GM/DL (3.2-5.2); ALBUMIN/GLOBULIN RATIO 0.78 (1.00-1.93); ALKALINE PHOSPHATASE 101 U/L (45-117); ALT/SGPT 18 U/L (12-78); ANION GAP 7 MEQ/L (8-16); AST/SGOT 15 U/L (7-37); BILIRUBIN,TOTAL 0.3 MG/DL (0.2-1.0); BLOOD UREA NITROGEN 8 MG/DL (7-18); C REACTIVE PROTEIN QUANTITATIV 0.53 MG/DL (0.00-0.30); CALCIUM LEVEL 8.7 MG/DL (8.8-10.2); CARBON DIOXIDE LEVEL 31 MEQ/L (21-32); CHLORIDE LEVEL 102 MEQ/L (98-107); CREATININE FOR GFR 1.46 MG/DL (0.55-1.30); GLOMERULAR FILTRATION RATE 37.9 (>45); GLUCOSE, FASTING 137 MG/DL (70-100); POTASSIUM SERUM 3.5 MEQ/L (3.5-5.1); SODIUM LEVEL 140 MEQ/L (136-145); TOTAL PROTEIN 6.6 GM/DL (6.4-8.2); VANCOMYCIN LEVEL TROUGH 7.6 UG/ML (10.0-20.0)
[2018-09-04 19:43] LABS: ERYTHROCYTE SEDIMENTATION RATE 46 mm/hr (0-30)
== END ==
LOC: M LAB REF 17:22
DX: N18.9 Chronic kidney disease, unspecified (principal); Z99.2 Dependence on renal dialysis; M86.671 Other chronic osteomyelitis, right ankle and foot; T81.31XA Disruption of external operation (surgical) wound, not elsewhere classified, initial encounter; Y92.9 Unspecified place or not applicable; Y93.9 Activity, unspecified
CPT/HCPCS: 80053

== ENCOUNTER → 2018-09-24 | Outpatient (REF) | payer MEDICARE, BC | LOC: M SFHCPLAZ 19:17 | DX: C44.519 Basal cell carcinoma of skin of other part of trunk (principal); C44.529 Squamous cell carcinoma of skin of other part of trunk; L56.8 Other specified acute skin changes due to ultraviolet radiation; C44.42 Squamous cell carcinoma of skin of scalp and neck; L57.0 Actinic keratosis | CPT/HCPCS: 88305 ==

== ENCOUNTER → 2018-11-13 | Outpatient (REF) | payer MEDICARE, BC ==
[~2018-11-13] MED LIST changes: +ACET1TAB55 PO; +AMLO1TAB37 PO; +AMOX875T2 PO; +ARANESP IV; +ATOR1TAB19 PO; +BACITAB PO; +BUPR150T3 PO; +BUPR300T34 PO; +BYDU1INJ SC; +CARV12.5 PO; +CARV6.25 PO; +CEFE1INJ3 IV; +CEFE2INJ IV; +CIPR-249 PO; +COLA100C5 PO; +COUM1TAB17 PO; +COUM7.5T PO; +COZA50TA PO; +DICL1GEL3 TD; -DOCUSATE SODIUM 100 MG CAP PO; +DULC10SU2 PR; +DULC5TAB PO; +FENO160T10 PO; +FERR1TAB8 PO; +FEXO180T58 PO; +FISH5CAP PO; +FLAG500T PO; +FLON1SPR; +GABA-1171 PO; +GAS-80CH PO; +HYDR-3713 PO; +JANU25TA PO; +LOSA50TA88 PO; +LOVE0.6I2 SC; +METF500T13 PO; +METO1TAB87 PO; +METO25TA4 PO; +METO50TA7 PO; +MIRA3350 PO; +NEPHTAB PO; +NORCOTAB PO; +OMEP40CA2 PO; +OXYC-517 PO; +OXYCO5TA PO; +PANT40TA3 PO; +PERC5TAB12 PO; +PROP15TA PO; +RALO1TAB PO; +RENATAB5 PO; +STOO100C PO; +TYLE1TAB5 PO; +VANC1VLAD INJ; +VITA500055 PO; +WARF-18 PO; +WARF-23 PO
== END ==
LOC: M SFHCPLAZ 09:53
PROVIDERS: ATTEND Dermatology
DX: C44.519 Basal cell carcinoma of skin of other part of trunk (principal); L90.5 Scar conditions and fibrosis of skin

== ENCOUNTER → 2019-04-05 | Outpatient (CLI) | payer MEDICARE, BC ==
[~2019-04-05] MED LIST changes: -CEFE1INJ3 IV; +CEFE1INJ5 IV; +HYDR-3715 PO; +NEPH1TAB11 PO; -NEPHTAB PO; -NORCOTAB PO; +PROP150T20 PO; -PROP15TA PO
[2019-04-05 13:42] LABS: BASO # 0.1 10^3/uL (0.0-0.2); BASO % 0.7 % (0.0-1.0); EOS # 0.1 10^3/uL (0.0-0.50); HEMATOCRIT 35.3 % (36.0-47.0); HEMOGLOBIN 11.6 g/dl (12.0-15.5); LYMPH # 1.2 10^3/uL (1.5-4.5); MEAN CORPUSCULAR HEMOGLOBIN 32.7 pg (27.0-33.0); MEAN CORPUSCULAR HGB CONC 32.9 g/dl (32.0-36.5); MEAN CORPUSCULAR VOLUME 99.4 fl (80.0-96.0); MONO # 0.8 10^3/uL (0.0-0.8); MONO % 9.9 % (0.0-5.0); NEUTROPHILS # 6.1 10^3/uL (1.8-7.7); NEUTROPHILS % 74.2 % (36.0-66.0); PLATELET COUNT, AUTOMATED 238 10^3/uL (150-450); RED BLOOD COUNT 3.55 10^6/uL (4.00-5.40); WHITE BLOOD COUNT 8.2 10^3/uL (4.0-10.0)
[2019-04-05 13:51] LABS: ALBUMIN 3.3 GM/DL (3.2-5.2); BILIRUBIN,TOTAL 0.3 MG/DL (0.2-1.0); CALCIUM LEVEL 9.4 MG/DL (8.8-10.2); CHOLESTEROL RISK RATIO 2.611 (<5); CREATININE FOR GFR 3.5 MG/DL (0.55-1.30); GLOMERULAR FILTRATION RATE 13.8 (>45); POTASSIUM SERUM 4.3 MEQ/L (3.5-5.1); TOTAL PROTEIN 7.3 GM/DL (6.4-8.2)
[2019-04-05 14:38] LABS: HEMOGLOBIN A1c 5.1 %
== END ==
LOC: M SMT 08:47
PROVIDERS: ATTEND Family Medicine
DX: N18.5 Chronic kidney disease, stage 5 (principal); D63.1 Anemia in chronic kidney disease

== ENCOUNTER 2019-04-30 13:44 | Emergency (ER) | payer MEDICARE, BC ==
[~2019-04-30] VITALS: Ht 167.6 cm; Wt 68.2 kg
[~2019-04-30 13:44] MED LIST changes: +MM S100C PO; -STOO100C PO
--- NOTE | 2019-04-30 14:28 | REP ---
Clinical: Trauma . Findings: Age-related atrophy and microvascular ischemic changes are appreciated. The ventricles and sulci are symmetric. Duarte-white differentiation is maintained. There is no evidence for acute intracranial hemorrhage, mass/mass effect, pathology or infarction. No extra-axial fluid collection. Calvarium is intact. Paranasal sinuses and mastoid air cells are clear. A small area of scalp swelling and hematoma overlies the left frontal bone. Impression: Age related atrophy and microvascular ischemic changes. No acute intracranial hemorrhage, infarction, or mass/mass effect. Small scalp hematoma. Electronically Signed by Vipul Styles MD 04/30/2019 02:19 P
[2019-04-30 15:08] VITALS: BP 169/72
== END 2019-04-30 15:09 | disposition home or self-care (01) ==
LOC: M ED 13:44
DX: S00.83XA Contusion of other part of head, initial encounter (principal); S80.01XA Contusion of right knee, initial encounter; S80.02XA Contusion of left knee, initial encounter; S51.012A Laceration without foreign body of left elbow, initial encounter; V48.4XXA Person boarding or alighting a car injured in noncollision transport accident, initial encounter; Y92.018 Other place in single-family (private) house as the place of occurrence of the external cause; I10 Essential (primary) hypertension; E11.9 Type 2 diabetes mellitus without complications; E78.00 Pure hypercholesterolemia, unspecified; K21.9 Gastro-esophageal reflux disease without esophagitis; N28.9 Disorder of kidney and ureter, unspecified; M81.0 Age-related osteoporosis without current pathological fracture; F41.9 Anxiety disorder, unspecified; Z79.899 Other long term (current) drug therapy; Z79.01 Long term (current) use of anticoagulants; Z88.1 Allergy status to other antibiotic agents; Z88.2 Allergy status to sulfonamides

== ENCOUNTER → 2019-06-10 | Outpatient (CLI) | payer MEDICARE, BC ==
[~2019-06-10] MED LIST changes: +ALLE1TAB23 PO; +BUPIVACAINE HCL 0.5% 10 ML VIAL As Ordered ONE; +ISOVUE-300 61% 50ML VIAL (Q9967) As Ordered ONE; +JANU100T PO; +LIDOCAINE 2% MDV 20 ML VIAL As Ordered ONE; +MIDAZOLAM INJ 2 MG/2 ML VIAL (J2250) As Ordered ONE; +diphenhydrAMINE INJ 50MG/ML VIAL (J1200) As Ordered ONE; +fentaNYL 100 MCG/2 ML INJECTION (J3010) As Ordered ONE
[2019-06-10 09:54] VITALS: BP 164/72
--- NOTE | 2019-06-14 08:47 | REPIR ---
DATE OF PROCEDURE: 06/10/2019 ATTENDING SURGEON: Dr. Maryjo Barkley LEGISLATORS: Brayan Leija and Michela Welch. PREOPERATIVE DIAGNOSES: End-stage renal disease, dysfunctional right radiocephalic arteriovenous fistula. POSTOPERATIVE DIAGNOSES: End-stage renal disease, dysfunctional right radiocephalic arteriovenous fistula. PROCEDURE: Right radiocephalic arteriovenous fistulogram, retrograde right radial artery angiogram. INDICATION: The patient is a 69-year-old female who has difficulty with the cannulation of her right radiocephalic arteriovenous fistula as well as some pain at the base of her right thumb. The patient has large collaterals in the forearm coursing into the hand as well as in the upper arm. The patient will undergo a fistulogram with possible angioplasty stent and/or atherectomy. Risks, benefits, and alternative treatment options were discussed with the patient. ANESTHESIA: Local with 1 mL of 2% lidocaine mixed with 0.5% Marcaine. FLUOROSCOPY TIME: 0.1 minutes. CONTRAST: 3 mL. HEPARIN: None. COMPLICATIONS: None. DRAINS: None. SPECIMENS: None. IMPLANTS: None. PROCEDURE: The patient was taken to the angiography suite, placed supine on the angiography table, and then prepped and draped in a standard surgical fashion. 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 The catheters and wires removed and manual compression was applied for hemostasis. Dressings were then applied. The patient tolerated the procedure well. All instrument, sponge, and needle counts were correct at the end the case. There were no complications. Dr. Barkley was present for and directed the entire case. The patient was transferred to the holding area and subsequently discharged in stable condition. The patient will require surgical revision with ligation of the collateral branches coursing into the wrist and hand as well as into the upper arm and deeper venous system for better flow through the fistula and less venous hypertension into the hand.
== END ==
LOC: M IRPRO 08:32
PROVIDERS: ATTEND Surgery Vascular Surgery
DX: N18.6 End stage renal disease (principal); T82.590A Other mechanical complication of surgically created arteriovenous fistula, initial encounter; I12.0 Hypertensive chronic kidney disease with stage 5 chronic kidney disease or end stage renal disease; E11.22 Type 2 diabetes mellitus with diabetic chronic kidney disease; I48.91 Unspecified atrial fibrillation; K21.9 Gastro-esophageal reflux disease without esophagitis; Z79.01 Long term (current) use of anticoagulants; X58.XXXA Exposure to other specified factors, initial encounter; Y93.9 Activity, unspecified; Y92.9 Unspecified place or not applicable; Y99.9 Unspecified external cause status
CPT/HCPCS: 36901; C1894; Q9967

== ENCOUNTER → 2019-07-10 | Outpatient (CLI) | payer MEDICARE, BC ==
[~2019-07-10] MED LIST changes: -BUPIVACAINE HCL 0.5% 10 ML VIAL As Ordered ONE; -ISOVUE-300 61% 50ML VIAL (Q9967) As Ordered ONE; -LIDOCAINE 2% MDV 20 ML VIAL As Ordered ONE; -MIDAZOLAM INJ 2 MG/2 ML VIAL (J2250) As Ordered ONE; -diphenhydrAMINE INJ 50MG/ML VIAL (J1200) As Ordered ONE; -fentaNYL 100 MCG/2 ML INJECTION (J3010) As Ordered ONE
--- NOTE | 2019-07-10 18:18 | ECGEPIP ---
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 First-degree AV block Right bundle branch block Right bundle branch block new from 11/06/17. Electronically Signed on 07-10-2019 18:18:15 EDT by Antony Oakley
== END ==
LOC: M EKG 15:29
PROVIDERS: ATTEND Surgery Vascular Surgery
DX: Z01.818 Encounter for other preprocedural examination (principal); I48.91 Unspecified atrial fibrillation; R03.0 Elevated blood-pressure reading, without diagnosis of hypertension; E11.9 Type 2 diabetes mellitus without complications; E78.00 Pure hypercholesterolemia, unspecified; K21.9 Gastro-esophageal reflux disease without esophagitis; Z79.01 Long term (current) use of anticoagulants; I44.0 Atrioventricular block, first degree; I45.10 Unspecified right bundle-branch block

== ENCOUNTER 2019-07-12 11:58 | Day surgery (SDC) | payer MEDICARE, BC ==
[~2019-07-12] VITALS: Ht 167.6 cm; Wt 67.0 kg
[~2019-07-12 11:58] MED LIST changes: +NS 1,000 ML IV ONE
[2019-07-12] MEDS ORDERED: fentaNYL 100 MCG/2 ML INJECTION (J3010) As Ordered ONE (16:00)
[2019-07-12] MEDS ORDERED: PROPOFOL 200 MG/20 ML VIAL As Ordered ONE (16:00)
[2019-07-12] MEDS ORDERED: MIDAZOLAM INJ 2 MG/2 ML VIAL (J2250) As Ordered ONE (16:00)
[2019-07-12] MEDS ORDERED: LIDOCAINE 2% INJ 100 MG/5 ML SDV (FOR ANES.) As Ordered ONE (16:00)
[2019-07-12] MEDS ORDERED: hydrALAZINE INJ 20 MG/ML VIAL As Ordered ONE (16:05)
[2019-07-12] MEDS ORDERED: BUPIVACAINE HCL 0.5% 10 ML VIAL As Ordered ONE (17:32)
[2019-07-12] MEDS ORDERED: HEPARIN SOD (PORCINE) 5000 UNITS/ML VIAL As Ordered ONE (17:32)
[2019-07-12] MEDS ORDERED: LIDOCAINE 2% MDV 20 ML VIAL As Ordered ONE (17:32)
[2019-07-12 19:05] VITALS: BP 143/66
--- NOTE | 2019-07-18 18:12 | ROOPDOC ---
[facility] Report Of Operation Report of Operation DATE OF PROCEDURE: 07/12/2019 PREOPERATIVE DIAGNOSES: End-stage renal disease, dysfunctional right autogenous radiocephalic arteriovenous fistula with right thumb pain. POSTOPERATIVE DIAGNOSES: In stage renal disease, dysfunctional right autogenous radiocephalic arteriovenous fistula with right thumb pain. PROCEDURE: Revision of right autogenous radiocephalic arteriovenous fistula with ligation of collateral branch is and reduction of aneurysmal cephalic vein. SURGEON: Dr. Leana Barkley M.D. 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 Patient will undergo revision of the fistula with reduction of the aneurysmal tissue and ligation of the collateral branch is feeding into the deeper venous system. Patient has discomfort at the base of the right thumb. The procedure was described and explained to the patient in detail including drawing of pictures demonstrating the procedure and the anatomy. Risks, benefits and alternative treatment options were discussed with the patient. Benefits inc luded but were not limited to having a functioning arteriovenous fistula for hemodialysis access and removal of tunneled central venous catheter once the fistula is successfully being used. Alternative treatment options included but were not limited to no intervention with continued conservative management. Risks included but were not limited to infection, bleeding, worsening of renal failure requiring hemodialysis sooner than expected, failure of arteriovenous to maintain patency with thrombosis, failure of arteriovenous fistula to mature requiring secondary intervention, steal syndrome, anesthetic complication, bruising, scarring, nerve damage, possible need for transfusion of blood products, possible need for further open surgical intervention, cerebrovascular accident, myocardial infarction, pulmonary embolus , deep venous thrombosis, reaction or complication from the prepping and draping materials, numbness, tingling, swelling of the extremity, loss of limb, loss of life and poor outcome. Patient's questions were answered. Patient voices understanding of the risks, benefits and alternative treatment options. Patient voices acceptance of these risks, benefits and alternative treatment options and consents to proceed with arteriovenous revision There were no promises or guarantees made to the patient regarding the results and/or outcome of the procedure. ANESTHESIA: Local Mac. IVF: 200 mL. ESTIMATED BLOOD LOSS: 50 mL. HEPARIN:None PROTAMINE:None COMPLICATIONS:None DRAINS:None SPECIMENS:None IMPLANTS:None DESCRIPTION OF PROCEDURE: Patient was taken to operating room, placed supine on the operating room table, and the patient was prepped and draped in a standard surgical fashion. A time-out was then conducted by myself and the team members in the room confirming the correct patient, procedure and laterality. The incision was made over the aneurysmal area at the wrist after anesthetizing the overlying skin and subcutaneous tissue with 2% lidocaine mixed with 0.5% Marcaine. The cephalic vein was sharply dissected free circumferentially. The normal cephalic vein proximally and distally was encircled with vessel loops. The collateral branch is originating off of the cephalic vein and coursing into the deeper venous system were encircled and ligated using 0 silk suture. The aneurysmal area of the cephalic vein were then reduced in size using a vascular stapler to staple across the aneurysmal tissue and reduce the size of the fistula to approximately 3-4 mm in that region. There was good flow noted in the fistula at the completion of the reduction of the aneurysmal tissue. There was less prominence of the veins at the base of the thumb after ligation of the collateral branches. Hemostasis was obtained. The skin was then closed using 3-0 Monocryl in a running subcutaneous jugular fashion. Steri-Strips were applied. Dressings were then applied. Patient tolerated the procedure well. All instrument, sponge and needle counts were correct at the end of the case. Dr. Barkley was present for and directed the entire case. Patient was transferred to the recovery room awake, alert and in stable condition. The procedure was explained and discussed with the patient in the postsurgical recovery area with all questions being answered. Patient was subsequently discharged home in stable condition. Antony Barkley MD Jul 18, 2019 18:11
== END 2019-07-12 19:15 | disposition home or self-care (01) ==
LOC: M SDC 11:58
PROVIDERS: ATTEND Surgery Vascular Surgery
DX: T82.590A Other mechanical complication of surgically created arteriovenous fistula, initial encounter (principal); N18.6 End stage renal disease; I12.0 Hypertensive chronic kidney disease with stage 5 chronic kidney disease or end stage renal disease; I48.91 Unspecified atrial fibrillation; E78.5 Hyperlipidemia, unspecified; E11.22 Type 2 diabetes mellitus with diabetic chronic kidney disease; K21.9 Gastro-esophageal reflux disease without esophagitis; M12.9 Arthropathy, unspecified; M81.0 Age-related osteoporosis without current pathological fracture; F41.9 Anxiety disorder, unspecified; Z88.2 Allergy status to sulfonamides; Z79.899 Other long term (current) drug therapy; Z79.01 Long term (current) use of anticoagulants; Z87.891 Personal history of nicotine dependence; Z87.81 Personal history of (healed) traumatic fracture; Z85.828 Personal history of other malignant neoplasm of skin; Z90.710 Acquired absence of both cervix and uterus; Z96.1 Presence of intraocular lens; Z98.41 Cataract extraction status, right eye; Z98.42 Cataract extraction status, left eye
CPT/HCPCS: 36415; 36832; 84132; J2250; J3010

== ENCOUNTER → 2019-10-08 | Outpatient (REF) | payer MEDICARE, BC ==
[~2019-10-08] MED LIST changes: -NS 1,000 ML IV ONE; -OMEP40CA2 PO; +OMEP40CA97 PO
== END ==
LOC: M LAB REF 13:39
PROVIDERS: ATTEND Internal Medicine Nephrology
DX: N39.0 Urinary tract infection, site not specified (principal)

== ENCOUNTER 2020-03-16 19:03 | Inpatient (IN) | payer MEDICARE, BC ==
[~2020-03-16] VITALS: Ht 170.2 cm; Wt 72.9 kg
[~2020-03-16 19:03] MED LIST changes: -BUPR300T34 PO; +BUPR300T92 PO
[2020-03-16] MEDS ORDERED: ONDANSETRON 4MG/2ML VIAL IV ONE (19:30)
[2020-03-16] MEDS ORDERED: MORPHINE 2 MG/ML 1ML VIAL (J2270) IV ONE ×3 (19:30→22:45)
[2020-03-16 20:00] LABS: BASO # 0.1 10^3/uL (0.0-0.2); BASO % 0.5 % (0.0-1.0); EOS # 0.1 10^3/uL (0.0-0.5); EOS % 0.3 % (0.0-3.0); HEMATOCRIT 35.2 % (36.0-47.0); LYMPH # 0.9 10^3/uL (1.5-5.0); LYMPH % 5.5 % (24.0-44.0); MEAN CORPUSCULAR HEMOGLOBIN 33.3 pg (27.0-33.0); MEAN CORPUSCULAR HGB CONC 34.1 g/dl (32.0-36.5); MEAN CORPUSCULAR VOLUME 97.8 fl (80.0-96.0); MONO # 0.8 10^3/uL (0.0-0.8); MONO % 4.6 % (0.0-5.0); NEUTROPHILS # 14.7 10^3/uL (1.5-8.5); NEUTROPHILS % 88.2 % (36.0-66.0); PLATELET COUNT, AUTOMATED 277 10^3/uL (150-450); WHITE BLOOD COUNT 16.7 10^3/uL (4.0-10.0)
[2020-03-16 20:11] LABS: CALCIUM LEVEL 9.1 MG/DL (8.8-10.2); CREATININE FOR GFR 5.58 MG/DL (0.55-1.30)
[2020-03-16 20:18] LABS: INR 3.78; PROTHROMBIN TIME 37.4 SECONDS (11.8-14.0)
[2020-03-16] MEDS ORDERED: WARF-23 PO (20:25)
[2020-03-16] MEDS ORDERED: PANT40TA3 PO (20:25)
[2020-03-16] MEDS ORDERED: PROP300T PO (20:31)
[2020-03-16] MEDS ORDERED: FEXOFENADINE 60 MG TAB PO PRN (21:00)
[2020-03-16] MEDS ORDERED: MIRALAX *UNIT DOSE* 17GM PACKET PO PRN (21:00)
[2020-03-16] MEDS ORDERED: ACETAMINOPHEN TAB 650MG DOSE (2X325MG) PO PRN (21:00)
[2020-03-16] MEDS ORDERED: ENTER DRUG NAME HERE (PATIENT'S OWN MED) PO SCH (21:00)
[2020-03-16] MEDS ORDERED: NORCO, ANEXSIA 5/325MG TABLET (HYDROcodone/ACETAMINOPHEN) PO PRN (22:45)
[2020-03-16 22:48] VITALS: BP 160/77
[2020-03-16] MEDS: RAMELTEON 8 MG TAB (ROZEREM) PO PRN (23:21)
[2020-03-16] MEDS: CARVedilol 6.25 MG TAB PO SCH (23:22)
[2020-03-16] MEDS: PROPAFENONE 150 MG TAB PO SCH (23:22)
--- NOTE | 2020-03-16 23:59 | HPEPDOC ---
[facility] Medical History & Physical Date of Admission March 16, 2020 Date of Service: March 16, 2020 Attending Physician: SOFIA TODD MD History and Physical CHIEF COMPLAINT: Tripped and fell on her right hip. HISTORY OF PRESENT ILLNESS: 69yo W with ESRD on HD TThSat, Afib on coumadin, HTN, HLD, hx of right ankle fracture s/p ORIF who tripped and fell onto her right side. She denied hitting her head, LOC, chest pain, palpitations, dizziness or vertigo, N/V/D, recent fever, chills, travel, sick contacts. She was otherwise feeling well and going about her day when she tripped and fell and came in with severe R hip pain. In the ED she was hypertensive but otherwise HDS, afebrile, breathing comfortably on room air and reports severe pain when she moves. In the ED, she was given morphine 4mg and zofran IV with mild improvement in her pain. Workup was notable for R hip and fevmer XR that showed a right femoral head fracture, CXR that was wnl with no rib fractures or cardiopulmonary abnormalities, EKG with NSR with RBBB, INR 3.78, hgb 12, WBC 16.7, platelets 277, na 135, K 4, Cr 5.58, glucose 145, while covid-19 testing was negative. Orthopedic surgery was consulted in the ED and recommended holding her warfarin, pain control and medical optimization for surgery. REVIEW OF SYSTEMS: GENERAL: No fever, chills, rigors, reports that she often trembles because she is always chronically cold and that is her baseline HEAD: No headaches, no bleeding or lesions noted EYES: No changes in vision or pain EARS, NOSE, & THROAT: No rhinorrhea, congestion, or throat pain CARDIOVASCULAR: No chest pain, palpitations or dizziness PULMONARY: No shortness of breath, no pleurisy, no wheezing of coughing GASTROINTESTINAL: No recent constipation or diarrhea or change in bowel habits GENITOURINARY: No dysuria, hematuria or change in frequency HEMATOLOGICAL: Bruises easily, however no bleeding noted SKIN: No active wounds, rashes or cuts PAST MEDICAL HISTORY: ESRD on HD, HTN, DM, Afib on Coumadin PAST SURGICAL HISTORY: ORIF right ankle and hardware removal with wound VAC SOCIAL HISTORY: Retired [employer], denies ETOH, smoking, or illicit drug use. Lives at home PHYSICAL EXAMINATION: VITAL SIGNS: Please see below. GENERAL: Pleasant and cooperative. No acute distress but yells with pain when he leg is moved. Is struggling to get comfortable HEENT: NCAT, PERRLA, EOMI, MMM CARDIOVASCULAR: Regular rate and rhythm. No murmurs, rubs, or gallops LUNGS: Clear to auscultation bilaterally, no wheezing or rhonchi ABDOMEN: Normoactive bowel sounds, soft, NTND NEUROLOGICAL: AOx3, cranial nerves 2-12 grossly intact, RLE strength and ROM exam limited by pain, otherwise full sensation and able to move ankle and wiggle toes. LLE with 5/5 strength, UE 5/5 strength, normal tone and sensation grossly intact bilaterally. EXTREMITIES: WWP, no LE edema, 2+ DP pulses bilaterally LABS: see below, otherwise reviewed above. IMAGING: reviewed as discussed above. Official reads pending ASSESSMENT: 69yo W with ESRD on HD TThSat, Afib on coumadin, HTN, HLD, hx of right ankle fracture s/p ORIF who tripped and fell onto her right side and sustained a R femoral fracture pending surgery. PLAN: R femoral fracture: -Dr. Jitendra smallwood (ortho) was consulted by ED physician, recommended hold warfarin and likely surgery in 2d -hold warfarin -morphine [id number] for severe pain, tylenol PRN for mild pain -covid-19 negative for surgical clearance -Bedrest, will need PT/OT postop -Purewick catheter for now Pre-op clearance: -ESRD on HD due for her regular HD tomorrow. Euvolemic on exam -covid-19 negative -EKG was sinus rhythm with previously noted RBBB -Holding warfarin, with plan for surgery when INR is <2 -10% 30 day risk of , OK or cardiac arrest for this intermediate risk surgery History of Afib: -currently in sinus -hold warfarin for pending surgery -continue home propafenone ESRD on HD Mon//Mon - Dr. Banuelos consulted, to have HD in the morning per home schedule - Euvolemic GERD: -continue home pantoprazole Chronic pain: -continue home lidoderm patch Osteoporosis: -continue home raloxifene Depression: -continue wellbutrin Chronic constipation: -continue home miralax Chronic insomnia: -continue home rozerem DVT ppx: therapeutic INR, hold AC for upcoming hip surgery Dispo: medsur Vital Signs Vital Signs Date Time Temp Pulse Resp B/P (MAP) Pulse Ox O2 Delivery O2 Flow Rate FiO2 03/16/20 22:15 79 16 166/73 (104) 97 Room Air 03/16/20 19:04 96.8 Laboratory Data Labs 24H Laboratory Tests 2 03/16/20 19:37: Immature Granulocyte % (Auto) 0.9, Neutrophils (%) (Auto) 88.2H, Lymphocytes (%) (Auto) 5.5L, Monocytes (%) (Auto) 4.6, Eosinophils (%) (Auto) 0.3, Basophils (%) (Auto) 0.5, Neutrophils # (Auto) 14.7H, Lymphocytes # (Auto) 0.9L, Monocytes # (Auto) 0.8, Eosinophils # (Auto) 0.1, Basophils # (Auto) 0.1, Nucleated Red Blood Cells % (auto) 0.1H, Prothrombin Time 37.4H, Prothromb Time International Ratio 3.78, Activated Partial Thromboplast Time 40.0H, Anion Gap 8, Glomerular Filtration Rate 8.0L, Calcium Level 9.1 03/16/20 20:46: Coronavirus (COVID-19)(PCR) NEGATIVE CBC/BMP Laboratory Tests 03/16/20 19:37 Home Medications Scheduled Bupropion HCl (Bupropion Xl) 300 Mg Tab, 300 MG PO DAILY Carvedilol (Carvedilol) 6.25 Mg Tablet, 12.5 MG PO BID Docusate Sodium (Stool Softener) 100 Mg Cap, 100 MG PO DAILY Pantoprazole Sodium (Pantoprazole Sodium) 40 Mg Tablet.dr, 40 MG PO DAILY Propafenone HCl (Propafenone HCl) 300 Mg Tablet, 300 MG PO BID Raloxifene HCl (Raloxifene HCl) 60 Mg Tab, 60 MG PO QHS Warfarin Sodium (Warfarin Sodium) 5 Mg Tablet, 5 MG PO DAILY Scheduled PRN Fexofenadine HCl (Fexofenadine HCl) 180 Mg Tablet, 180 MG PO for prn Polyethylene Glycol 3350 (Miralax) 1 Pow Pow, 17 GM PO DAILY PRN for CONSTIPATION Allergies Coded Allergies: Sulfa (Sulfonamide Antibiotics) (Verified Adverse Reaction, Intermediate, upset stomach, 06/27/19) A-FIB/CHADSVASC A-FIB History Current/History of A-Fib/PAF?: Yes Current PO Anticoag Therapy: No Age/Risk Factor Scoring CHADSVASC: CHADSVASC Response (Comments) Value Age Risk Factor Age 65-74 years old 1 Gender Risk Factor Female 1 Hx of CHF No 0 Hx of HTN Yes 1 Hx of Stroke/TIA/or VTE Yes 2 Hx of Diabetes No 0 Hx of Vascular Disease No 0 Total 5 Treatment Treatment ordered: NONE Reason Anticoagulant not given: Recent/upcomin procedure SOFIA TODD MD March 16, 2020 23:43
[2020-03-17 05:55] VITALS: BP 136/70
[2020-03-17 06:03] LABS: HEMATOCRIT 31.9 % (36.0-47.0); HEMOGLOBIN 10.7 g/dl (12.0-15.5); MEAN CORPUSCULAR HEMOGLOBIN 32.9 pg (27.0-33.0); MEAN CORPUSCULAR HGB CONC 33.5 g/dl (32.0-36.5); MEAN CORPUSCULAR VOLUME 98.2 fl (80.0-96.0); PLATELET COUNT, AUTOMATED 244 10^3/uL (150-450); RED BLOOD COUNT 3.25 10^6/uL (4.00-5.40); WHITE BLOOD COUNT 12.5 10^3/uL (4.0-10.0)
[2020-03-17 06:23] LABS: INR 3.76; PROTHROMBIN TIME 37.2 SECONDS (11.8-14.0)
[2020-03-17 06:35] LABS: BILIRUBIN,TOTAL 0.5 MG/DL (0.2-1.0); CALCIUM LEVEL 8.7 MG/DL (8.8-10.2); CREATININE FOR GFR 5.74 MG/DL (0.55-1.30); GLOMERULAR FILTRATION RATE 7.8 (>45); MAGNESIUM LEVEL 1.9 MG/DL (1.8-2.4); POTASSIUM SERUM 4.6 MEQ/L (3.5-5.1); TOTAL PROTEIN 6.3 GM/DL (6.4-8.2)
[2020-03-17] MEDS: CARVedilol 6.25 MG TAB PO SCH ×2 (06:57→20:17)
[2020-03-17] MEDS: MORPHINE 2 MG/ML 1ML VIAL (J2270) IV PRN ×2 (06:57→11:07)
[2020-03-17] MEDS: PROPAFENONE 150 MG TAB PO SCH ×2 (06:57→20:17)
[2020-03-17] MEDS: LIDOCAINE 5% (LIDODERM) PATCH TOP SCH (06:58)
[2020-03-17] MEDS: buPROPion **XL** TABLET 150MG (WELLBUTRIN XL) PO SCH (06:58)
[2020-03-17] MEDS: PANTOPRAZOLE 40MG TAB (PROTONIX) PO SCH (06:58)
[2020-03-17] MEDS: DOCUSATE SODIUM 100 MG CAP PO SCH (06:58)
--- NOTE | 2020-03-17 07:15 | ECGEPIP ---
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
[2020-03-17] MEDS ORDERED: traMADol 50 MG TAB PO PRN (07:45)
[2020-03-17] MEDS: ACETAMINOPHEN 500 MG TAB PO SCH ×3 (08:00→22:26)
--- NOTE | 2020-03-17 08:28 | REP ---
Right femur: Two views. History: Trauma. Findings: AP and lateral views of the right mid and distal femur show no evidence of acute fracture or subluxation. There is mild diffuse osteopenia. There is an intramedullary cruz visible in the proximal tibia. Impression: No additional femur fracture. Electronically Signed by Zach Brown MD 03/17/2020 08:19 A
[2020-03-17] MEDS: ONDANSETRON 4MG/2ML VIAL IV PRN ×3 (08:35→22:45)
--- NOTE | 2020-03-17 09:33 | REP ---
A CHEST X-RAY: Single view. HISTORY: Portable exam, preop. COMPARISON STUDY: November 08, 2017. FINDINGS: The lungs are symmetrically aerated and clear. Pleural angles are sharp. The heart is not felt to be enlarged. Pulmonary vasculature is not increased. No significant bony abnormalities seen. Thoracic aorta somewhat tortuous. IMPRESSION: No active disease. Electronically Signed by Zach Brown MD 03/17/2020 12:31 P
--- NOTE | 2020-03-17 09:33 | REP ---
PELVIS RIGHT HIP: Three views. HISTORY: Trauma. FINDINGS: AP view of the pelvis and AP and frog-leg views of the right hip demonstrate a basicervical fracture of the right femoral neck in varus with slight impaction. The pelvic ring is intact. No sacral or pelvic fracture is seen. The left proximal femur appears intact. There are degenerative changes in the lumbosacral spine. IMPRESSION: Right femoral neck fracture in varus with slight impaction. Electronically Signed by Zach Brown MD 03/17/2020 12:31 P
--- NOTE | 2020-03-17 11:27 | CR ---
DATE OF CONSULTATION: 03/16/2020 REASON FOR CONSULTATION: Right hip fracture. HISTORY OF PRESENT ILLNESS: She is a 69-year-old female who lives alone at home who was in the garage dealing with the electric weed whacker, tripped on the cord and had a mechanical fall. She complains of isolated soreness of the right hip and groin area. No other injury. Does not complain of loss of consciousness, neck pain or any other pain or soreness of her upper or her lower extremities other than her right hip and groin area. She was evaluated in the emergency room and found to have a displaced femoral neck fracture and I was called to see her for this problem. PAST MEDICAL HISTORY: 1. History of chronic renal failure on hemodialysis. 2. Diabetes. 3. Atrial fibrillation. 4. Hypertension. PAST SURGICAL HISTORY: 1. Multiple renal dialysis catheters. 2. Open reduction internal fixation of a right displaced ankle fracture complicated by osteomyelitis requiring multiple revision surgeries which is now healed. This was about a year and a half ago. 3. Total abdominal hysterectomy. 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 Lives here in [place]. She is . She does not smoke or drink alcohol excessively. She lives alone, but usually does ambulate with a cane. REVIEW OF SYSTEMS: Health survey otherwise unremarkable. Dr. Anguiano cares for her medically. PHYSICAL EXAMINATION: Very pleasant, alert female. Vital Signs: Pulse 80. Respirations 16. Blood pressure 166/84. Oxygen saturation 99% on room air. HEENT: Benign. Neck: Nontender. Upper Extremities: She could elevate her arms up overhead without pain or soreness, deformity or crepitance of the shoulders, clavicles, elbows, forearms, and wrists. Small cut on her left index finger, basically a scrape. Abdomen: Nontender. Chest wall is nontender. Lower Extremity Examination: Showed some soreness and irritability in the right hip with any attempt at range of motion. Her right leg was somewhat shortened and laid in an external rotated posturing. She had excellent pulses distally at the dorsalis pedis and posterior tibial. Some decreased sensation on the top of her foot, but sensation was intact on the plantar surface. No obvious gross motor deficit noted. Healed scars noted about the ankle as well as at the knee consistent with prior surgery. No swelling or pitting edema of her lower extremities noted. Her x-rays of the right hip show a displaced right femoral neck fracture. Laboratory studies showed a hematocrit of 35.2, white count 16.7, platelets 277. Sodium 135, potassium 4.0, chloride 101, bicarbonate 26, BUN 48, creatinine 5.58. Calcium 9.1. Coagulation showed a protime of 37.4 with an INR of 3.78. IMPRESSION: Displaced right femoral neck fracture in a 69-year-old female with multiple medical comorbidities. She has a history of osteomyelitis infection regarding her right lower leg which is now healed. She has atrial fibrillation and on Coumadin and is anticoagulated now. So, I talked to her about the options for treatment and discussed the nature of her injury. With a displaced femoral neck fracture in her age group with her other medical comorbidities, I would recommend a hemiarthroplasty. However, doing that procedure does require carrying on the risks of surgery, which include infection, damage to nerves and blood vessels, anesthetic complications, heart attack, , failure of the wound to heal properly, leg length inequality or fracture, amongst many other risks. She understands this. She understands the need to do this and would like to proceed, but I told her that it is not safe to proceed presently because of her anticoagulation status and likely this may require some time for her anticoagulation parameters to normalize so that we can safely go ahead with the surgery. She understands that. She is being admitted to the hospitalist service to help us with medical optimization. She is going to be dialyzed and then will proceed once surgery is felt to be safe and optimal for her. She signed the consent today, both the consent for surgery and for the blood potential transfusion.
[2020-03-17] MEDS: traMADol 50 MG TAB PO PRN ×2 (13:36→20:18)
[2020-03-17 14:24] LABS: INR 3.76; PROTHROMBIN TIME 37.2 SECONDS (11.8-14.0)
[2020-03-17 14:32] VITALS: BP 98/51
--- NOTE | 2020-03-17 17:27 | IPNPDOC ---
Date Seen The patient was seen on 03/17/20. Progress Note SUBJECTIVE: Patient seen and examined this afternoon at the bedside. She had just returned from dialysis. Orthopedic surgery saw her this morning and recommends hemiarthroplasty, however, the procedure cannot take place at this time due to supratherapeutic INR. She understands it may take some time for her INR to come down. Otherwise, she has no complaints. She is eating and drinking well, she denies any shortness of breath or chest pain. She is in about 5 out of 10 pain in her right hip. OBJECTIVE PHYSICAL EXAMINATION: VITAL SIGNS: Please see below. GENERAL APPEARANCE: Laying in bed, appears stated age, no acute distress, calm, cooperative HEENT: EOMI, PERRLA, neck is supple with no thyromegaly or lymphadenopathy RESPIRATORY: Lungs are clear to auscultation bilaterally with no adventitious breath sounds appreciated CARDIOVASCULAR: no JVD, RRR,no murmurs/rubs/gallops, normal S1 and S2 ABDOMEN: +BS, soft, nontender to palpation in all four quadrants, no masses/organomegaly EXTREMITIES: Right leg appears shorter than the left, pain with plantarflexion of right foot, decreased range of motion of the right leg. NEUROLOGICAL: CN 2-12 intact, No obvious focal deficits PSYCHIATRIC: normal mood/affect Skin: No rashes or ulcers appreciated, warm and well-perfused LN: No significant cervical or inguinal lymphadenopathy LABORATORY DATA, IMAGING STUDIES, MICROBIOLOGY: Please see below. HIP AP/LAT: PELVIS RIGHT HIP: Three views. HISTORY: Trauma. FINDINGS: AP view of the pelvis and AP and frog-leg views of the right hip demonstrate a basicervical fracture of the right femoral neck in varus with slight impaction. The pelvic ring is intact. No sacral or pelvic fracture is seen. The left proximal femur appears intact. There are degenerative changes in the lumbosacral spine. IMPRESSION: Right femoral neck fracture in varus with slight impaction. DVT prophylaxis ordered?: Teds and sequentials ASSESSMENT AND PLAN: This is a 69-year-old female with history of osteoarthritis and end-stage renal disease on dialysis, atrial fibrillation on Coumadin who presents after mechanical fall, found to have right femoral neck fracture. Her INR is currently supratherapeutic and therefore surgery has been delayed. PROBLEMS: 1. Right femoral neck fracture -Immobilization for now -Pain management with morphine, Tylenol, tramadol as needed -Patient can be cleared for surgery when INR <2 2., Atrial fibrillation on Coumadin: -Holding Coumadin at this time as INR is supratherapeutic -Continue Propafenone, Coreg 3. End-stage renal disease on dialysis: -Patient went for hemodialysis today. No issues -Nephrology consulted. Appreciate recommendations 4. GERD: -Continue home Protonix 5. Osteoporosis: -Continue Raloxifene 6. Mood disorder: -Continue Welbutrin 7. Sleep disorder: -Continue Rozerem DISPO: Pending surgery DISPOSITION: . VS, I&O, 24H, Fishbone Vital Signs/I&O Vital Signs Date Time Temp Pulse Resp B/P (MAP) Pulse Ox O2 Delivery O2 Flow Rate FiO2 03/17/20 14:32 98.8 60 16 98/51 (67) 95 Room Air I&O- Last 24 Hours up to 6 AM 03/17/20 06:00 Intake Total 320 ml Output Total 400 ml Balance -80 ml Laboratory Data 24H LABS Laboratory Tests 2 03/16/20 19:37: Immature Granulocyte % (Auto) 0.9, Neutrophils (%) (Auto) 88.2H, Lymphocytes (%) (Auto) 5.5L, Monocytes (%) (Auto) 4.6, Eosinophils (%) (Auto) 0.3, Basophils (%) (Auto) 0.5, Neutrophils # (Auto) 14.7H, Lymphocytes # (Auto) 0.9L, Monocytes # (Auto) 0.8, Eosinophils # (Auto) 0.1, Basophils # (Auto) 0.1, Nucleated Red Blood Cells % (auto) 0.1H, Prothrombin Time 37.4H, Prothromb Time International Ratio 3.78, Activated Partial Thromboplast Time 40.0H, Anion Gap 8, Glomerular Filtration Rate 8.0L, Calcium Level 9.1 03/16/20 20:46: Coronavirus (COVID-19)(PCR) NEGATIVE 03/17/20 05:43: Nucleated Red Blood Cells % (auto) 0.0, Prothrombin Time 37.2H, Prothromb Time International Ratio 3.76, Anion Gap 11, Glomerular Filtration Rate 7.8L, Calcium Level 8.7L, Magnesium Level 1.9, Total Bilirubin 0.5, Aspartate Amino Transf (AST/SGOT) 13, Alanine Aminotransferase (ALT/SGPT) 18, Alkaline Phosphatase 70, Total Protein 6.3L, Albumin 3.0L, Albumin/Globulin Ratio 0.9L 03/17/20 13:46: Prothrombin Time 37.2H, Prothromb Time International Ratio 3.76 CBC/BMP Laboratory Tests 03/16/20 19:37 03/17/20 05:43 GME ATTESTATION GME ATTESTATION My faculty preceptor for this patient encounter was physically present during the encounter and was fully available. All aspects of the patient interview, examination, medical decision making process, and medical care plan development were reviewed and approved by the faculty preceptor. The faculty preceptor is aware and concurs with the plan as stated in the body of this note and will attest to such by his/her cosignature. ATTENDING NOTE Patient was seen and examined by me and agree with the above assessment and plan DORIS JOHNSON MD March 17, 2020 17:27 RAUL CASTAÑEDA MD March 20, 2020 18:04
[2020-03-17] MEDS: **NOTE PATIENT COMMENT** MISC XX SCH (20:18)
[2020-03-17 22:00] VITALS: BP 123/54
[2020-03-17] MEDS: MORPHINE 4 MG/ML 1ML VIAL/SYRINGE (J2270) IV PRN (22:45)
--- NOTE | 2020-03-18 03:14 | CR ---
DATE OF CONSULTATION: 03/17/2020 NEPHROLOGY CONSULTATION FOR: Carmen Oliver MD REASON FOR CONSULTATION: Is to assist in the management of end-stage renal disease in this lady with right hip fracture. HISTORY OF PRESENT ILLNESS: Mrs. Santillan is 69-year-old female with known history of end-stage renal disease, chronic atrial fibrillation on anticoagulation, hyperlipidemia, and prior history of right ankle fracture status post open reduction and internal fixation (ORIF). She is admitted with right hip fracture due to fall at home. Patient is due for dialysis today, and a nephrology consultation was requested. PAST MEDICAL AND SURGICAL HISTORY: Significant for: 1. Longstanding history of hypertension. 2. Type 2 diabetes. 3. Atrial fibrillation. 4. Hyperlipidemia. 5. End-stage renal disease. 6. Anemia of chronic kidney disease. Past surgical history is significant for right ankle fracture with ORIF and a history of infected hardware status post removal. MEDICATIONS: Her home medications included: - bupropion 300 mg daily - carvedilol 6.25 mg twice a day - stool softener 100 mg daily - pantoprazole 40 mg daily - raloxifene 60 mg at bedtime - Coumadin 5 mg daily - MiraLAX as needed for constipation - Tayler as needed for allergies ALLERGIES: She has allergy to SULFA DRUGS. PERSONAL AND SOCIAL HISTORY: Patient denies any alcohol or drug use. She is retired and lives by herself. FAMILY HISTORY: Is negative for end-stage renal disease. REVIEW OF SYSTEMS: Patient denies any loss of consciousness. She has no history of fever or chills. She just tripped and fell at home. Ear, nose, and throat are unremarkable. Cardiovascular system: Negative for dyspnea, chest pain, or leg edema. Respiratory system: Negative for cough or hemoptysis. Gastrointestinal (GI) system: Is significant for nausea, but denies any vomiting or diarrhea. Genitourinary () system: Is negative for dysuria or hematuria. She has end-stage renal disease. Musculoskeletal system: Significant for prior right ankle fracture, status post ORIF with infected hardware, status post removal of hardware. Now she is admitted with right hip fracture. Psychosocial system: Significant for depression. Neurological system: Negative for seizures or stroke. Endocrine system: Is significant for type 2 diabetes and secondary hyperparathyroidism. Hematological system: Significant for anemia and long-term anticoagulation due to atrial fibrillation. PHYSICAL EXAMINATION: Patient is awake and alert. She is somewhat upset at herself due to recent fall. Temperature is 97.7 degrees Fahrenheit, heart rate 72 per minute, and respiratory rate 18 per minute. Blood pressure 136/70 mmHg and oxygen saturation 99% on room air. Head: Is atraumatic. Ears, nose, and throat: Are unremarkable. Neck: Is supple and without jugular venous distention (JVD) or thyroid enlargement. Heart sounds are regular at present. Lungs sound clear to auscultation. Abdomen: Soft and nontender, and bowel sounds are normal. Extremities: Have no cyanosis or clubbing. Right lower extremity is externally rotated. Old surgical scar on her right ankle is healed. Left arm arteriovenous (AV) fistula is working and currently being used for dialysis. Neurologically: She is without a focal deficit. LAB DATA: WBC count on admission was 16.7, hemoglobin 12.0, and hematocrit 35.2. Today, her WBC count is down to 12.5, hemoglobin 10.7, and hematocrit 31.9. INR is 3.76. Sodium is 136, potassium 4.6, CO2 of 23, BUN 48, and creatinine 5.74. Total protein 6.3 and albumin 3.0. Chest x-ray is reviewed independently, and no effusion or infiltrate noted. The right hip x-ray shows femur neck fracture. PROBLEMS: 1. End-stage renal disease. Patient is due for dialysis today, and she was last dialyzed on Monday. She is currently being dialyzed. She is tolerating dialysis treatment very well. She usually does not gain much weight between treatments, and we are trying to remove only about 1 liter as tolerated. 2. Hypertension. Blood pressure usually very well controlled. She should continue with her chronic home medications. 3. Atrial fibrillation. She seems to be in regular rhythm right now with normal regular heart rate. She has been on chronic anticoagulation, and Coumadin is currently on hold. Her Coumadin can be reversed if needed for surgery. 4. Anemia. She has slight worsening of her hemoglobin since admission. Probably has some internal bleeding due to hip fracture. We are using minimal amount of heparin of 2000 units during dialysis today. From renal standpoint, patient is doing well and tolerating dialysis treatment very well. Once her INR is acceptable, then she can go for surgery for hip. Thank you for involving me in the care of Mrs. Santillan. I will follow her along with you.
[2020-03-18 05:18] LABS: HEMATOCRIT 31.4 % (36.0-47.0); HEMOGLOBIN 10.4 g/dl (12.0-15.5); MEAN CORPUSCULAR HEMOGLOBIN 32.8 pg (27.0-33.0); MEAN CORPUSCULAR HGB CONC 33.1 g/dl (32.0-36.5); MEAN CORPUSCULAR VOLUME 99.1 fl (80.0-96.0); PLATELET COUNT, AUTOMATED 243 10^3/uL (150-450); RED BLOOD COUNT 3.17 10^6/uL (4.00-5.40); WHITE BLOOD COUNT 9.3 10^3/uL (4.0-10.0)
[2020-03-18 05:30] LABS: INR 3.47; PROTHROMBIN TIME 34.9 SECONDS (11.8-14.0)
[2020-03-18 05:42] LABS: CALCIUM LEVEL 8.9 MG/DL (8.8-10.2); CREATININE FOR GFR 4.28 MG/DL (0.55-1.30); GLOMERULAR FILTRATION RATE 10.9 (>45); POTASSIUM SERUM 4.1 MEQ/L (3.5-5.1)
[2020-03-18 06:00] VITALS: BP 128/60
[2020-03-18] MEDS: ACETAMINOPHEN 500 MG TAB PO SCH ×3 (06:22→20:50)
[2020-03-18] MEDS: DOCUSATE SODIUM 100 MG CAP PO SCH (08:57)
[2020-03-18] MEDS: PANTOPRAZOLE 40MG TAB (PROTONIX) PO SCH (08:57)
[2020-03-18] MEDS: buPROPion **XL** TABLET 150MG (WELLBUTRIN XL) PO SCH (08:58)
[2020-03-18] MEDS: LIDOCAINE 5% (LIDODERM) PATCH TOP SCH (08:58)
[2020-03-18] MEDS: PROPAFENONE 150 MG TAB PO SCH ×2 (08:58→20:50)
[2020-03-18] MEDS: CARVedilol 6.25 MG TAB PO SCH ×2 (08:58→20:49)
[2020-03-18] MEDS: traMADol 50 MG TAB PO PRN ×2 (09:03→15:44)
[2020-03-18] MEDS: MORPHINE 4 MG/ML 1ML VIAL/SYRINGE (J2270) IV PRN ×2 (10:30→20:49)
[2020-03-18] MEDS ORDERED: PHYTONADIONE 5 MG TAB PO ONE (10:30)
[2020-03-18 14:48] VITALS: BP 123/53
--- NOTE | 2020-03-18 17:58 | IPNPDOC ---
Date Seen The patient was seen on 03/18/20. Progress Note SUBJECTIVE: Patient seen and examined this morning at the bedside. She reports she still has a significant amount of pain despite having taken her pain medications. She has no appetite. She has not had a bowel movement. Otherwise, no changes overnight and no other complaints this morning. OBJECTIVE PHYSICAL EXAMINATION: VITAL SIGNS: Please see below. GENERAL APPEARANCE: Laying in bed, appears stated age, no acute distress, calm, cooperative HEENT: EOMI, PERRLA, neck is supple with no thyromegaly or lymphadenopathy RESPIRATORY: Lungs are clear to auscultation bilaterally with no adventitious breath sounds appreciated CARDIOVASCULAR: no JVD, RRR,no murmurs/rubs/gallops, normal S1 and S2 ABDOMEN: +BS, soft, nontender to palpation in all four quadrants, no masses/organomegaly EXTREMITIES: Right leg appears shorter than the left, pain with plantarflexion of right foot, decreased range of motion of the right leg. NEUROLOGICAL: CN 2-12 intact, No obvious focal deficits PSYCHIATRIC: normal mood/affect Skin: No rashes or ulcers appreciated, warm and well-perfused LN: No significant cervical or inguinal lymphadenopathy LABORATORY DATA, IMAGING STUDIES, MICROBIOLOGY: Please see below. HIP AP/LAT: PELVIS RIGHT HIP: Three views. HISTORY: Trauma. FINDINGS: AP view of the pelvis and AP and frog-leg views of the right hip demonstrate a basicervical fracture of the right femoral neck in varus with slight impaction. The pelvic ring is intact. No sacral or pelvic fracture is seen. The left proximal femur appears intact. There are degenerative changes in the lumbosacral spine. IMPRESSION: Right femoral neck fracture in varus with slight impaction. DVT prophylaxis ordered?: Teds and sequentials ASSESSMENT AND PLAN: This is a 69-year-old female with history of osteoarthritis and end-stage renal disease on dialysis, atrial fibrillation on Coumadin who presents after mechanical fall, found to have right femoral neck fracture. Her INR is currently supratherapeutic and therefore surgery has been delayed. PROBLEMS: 1. Right femoral neck fracture -Immobilization for now -Pain management with morphine, Tylenol, Morphine, tramadol as needed -Patient can be cleared for surgery when INR <2 -Vitamin K was given this morning as INR still 3.47 2., Atrial fibrillation on Coumadin: -Holding Coumadin at this time -Continue Propafenone, Coreg 3. End-stage renal disease on dialysis: -Patient went for hemodialysis today. No issues -Nephrology consulted. Appreciate recommendations 4. GERD: -Continue home Protonix 5. Osteoporosis: -Continue Raloxifene 6. Mood disorder: -Continue Welbutrin 7. Sleep disorder: -Continue Rozerem DISPO: Pending surgery VS, I&O, 24H, Fishbone Vital Signs/I&O Vital Signs Date Time Temp Pulse Resp B/P (MAP) Pulse Ox O2 Delivery O2 Flow Rate FiO2 03/18/20 15:44 18 Room Air 03/18/20 14:48 98.6 63 123/53 (76) 95 I&O- Last 24 Hours up to 6 AM 03/18/20 06:00 Intake Total 810 ml Output Total 1050 ml Balance -240 ml Laboratory Data 24H LABS Laboratory Tests 2 03/18/20 05:01: Nucleated Red Blood Cells % (auto) 0.0, Prothrombin Time 34.9H, Prothromb Time International Ratio 3.47, Anion Gap 8, Glomerular Filtration Rate 10.9L, Calcium Level 8.9 CBC/BMP Laboratory Tests 03/18/20 05:01 GME ATTESTATION GME ATTESTATION My faculty preceptor for this patient encounter was physically present during the encounter and was fully available. All aspects of the patient interview, examination, medical decision making process, and medical care plan development were reviewed and approved by the faculty preceptor. The faculty preceptor is aware and concurs with the plan as stated in the body of this note and will attest to such by his/her cosignature. ATTENDING NOTE Patient was seen and examined by me and agree with the above assessment and plan DORIS JOHNSON MD March 18, 2020 17:58 RAUL CASTAÑEDA MD March 20, 2020 18:05
[2020-03-18 19:42] VITALS: BP 120/52
[2020-03-18] MEDS: **NOTE PATIENT COMMENT** MISC XX SCH (20:50)
[2020-03-19 05:44] VITALS: BP 125/51
--- NOTE | 2020-03-19 05:49 | IPN ---
DATE: 03/18/2020 Ms. Santillan is seen this morning on her bedside. She is still having significant pain in her right hip where she had fracture. She is waiting for her INR to come down before she can go for surgery. She was dialyzed yesterday, which she tolerated well. On physical exam, temperature 97.8 degrees Fahrenheit, heart rate 60 per minute, and respiratory rate 18 per minute. Blood pressure 128/60 mmHg and oxygen saturation 95% on room air. Head is atraumatic. Neck supple and without jugular venous distention (JVD) or thyroid enlargement. Heart sounds regular, and lungs clear to auscultation. Abdomen soft and nontender, and bowel sounds were normal. Extremities without any cyanosis or clubbing. Her right lower extremity is externally rotated due to fracture of the femoral neck. Neurologically, she is awake and at her baseline mentation without a focal deficit. Today's labs show WBC count 9.3, hemoglobin 10.4, and hematocrit 31.4. Sodium 135, potassium 4.1, BUN 25, and creatinine 4.28. INR is 3.47. PROBLEMS: 1. End-stage renal disease. Patient was dialyzed yesterday, and next dialysis will be scheduled for tomorrow. At this point, no emergent need for dialysis today. 2. Right hip fracture. Patient is still waiting for her INR to come down. Her Coumadin has been on hold. I have discussed with primary care team and recommended oral vitamin K 5 mg in order to bring her INR down. Patient is in a lot of pain and would like to get her hip surgery done as soon as possible. 3. Anemia. Her anemia is mild and stable. Does not seem to have any significant blood loss, but need to monitor closely as her INR is quite high. 4. Hypertension. Blood pressure very well controlled on current medication, and no changes are being made today.
[2020-03-19] MEDS: PANTOPRAZOLE 40MG TAB (PROTONIX) PO SCH (05:50)
[2020-03-19] MEDS: traMADol 50 MG TAB PO PRN ×2 (05:50→14:16)
[2020-03-19] MEDS: DOCUSATE SODIUM 100 MG CAP PO SCH (05:50)
[2020-03-19] MEDS: buPROPion **XL** TABLET 150MG (WELLBUTRIN XL) PO SCH (05:50)
[2020-03-19] MEDS: ACETAMINOPHEN 500 MG TAB PO SCH ×3 (05:50→21:55)
[2020-03-19] MEDS: PROPAFENONE 150 MG TAB PO SCH ×2 (05:50→21:54)
[2020-03-19] MEDS: CARVedilol 6.25 MG TAB PO SCH ×2 (09:00→21:55)
[2020-03-19] MEDS: LIDOCAINE 5% (LIDODERM) PATCH TOP SCH (09:00)
[2020-03-19 09:42] LABS: HEMATOCRIT 28.2 % (36.0-47.0); HEMOGLOBIN 9.3 g/dl (12.0-15.5); MEAN CORPUSCULAR HEMOGLOBIN 32.2 pg (27.0-33.0); MEAN CORPUSCULAR VOLUME 97.6 fl (80.0-96.0); PLATELET COUNT, AUTOMATED 237 10^3/uL (150-450); RED BLOOD COUNT 2.89 10^6/uL (4.00-5.40); WHITE BLOOD COUNT 10.2 10^3/uL (4.0-10.0)
[2020-03-19 09:56] LABS: INR 1.59; PROTHROMBIN TIME 18.7 SECONDS (11.8-14.0)
[2020-03-19 10:20] LABS: CALCIUM LEVEL 8.7 MG/DL (8.8-10.2); CREATININE FOR GFR 5.98 MG/DL (0.55-1.30); GLOMERULAR FILTRATION RATE 7.4 (>45); POTASSIUM SERUM 3.9 MEQ/L (3.5-5.1)
[2020-03-19] MEDS ORDERED: ceFAZolin SOD 2 GM in IV 1 EA IV ONE (11:00)
--- NOTE | 2020-03-19 13:33 | IPNPDOC ---
Date Seen The patient was seen on 03/19/20. Progress Note SUBJECTIVE: Patient seen and examined this morning at the bedside. She reports she still has a significant amount of pain despite having taken her pain medications. Her INR has corrected so she will go for her surgery this afternoon. OBJECTIVE PHYSICAL EXAMINATION: VITAL SIGNS: Please see below. GENERAL APPEARANCE: Laying in bed, appears stated age, no acute distress, calm, cooperative HEENT: EOMI, PERRLA, neck is supple with no thyromegaly or lymphadenopathy RESPIRATORY: Lungs are clear to auscultation bilaterally with no adventitious breath sounds appreciated CARDIOVASCULAR: no JVD, RRR,no murmurs/rubs/gallops, normal S1 and S2 ABDOMEN: +BS, soft, nontender to palpation in all four quadrants, no masses/organomegaly EXTREMITIES: Right leg appears shorter than the left, pain with plantarflexion of right foot, decreased range of motion of the right leg. NEUROLOGICAL: CN 2-12 intact, No obvious focal deficits PSYCHIATRIC: normal mood/affect Skin: No rashes or ulcers appreciated, warm and well-perfused LN: No significant cervical or inguinal lymphadenopathy LABORATORY DATA, IMAGING STUDIES, MICROBIOLOGY: Please see below. HIP AP/LAT: PELVIS RIGHT HIP: Three views. HISTORY: Trauma. FINDINGS: AP view of the pelvis and AP and frog-leg views of the right hip demonstrate a basicervical fracture of the right femoral neck in varus with slight impaction. The pelvic ring is intact. No sacral or pelvic fracture is seen. The left proximal femur appears intact. There are degenerative changes in the lumbosacral spine. IMPRESSION: Right femoral neck fracture in varus with slight impaction. DVT prophylaxis ordered?: Teds and sequentials ASSESSMENT AND PLAN: This is a 69-year-old female with history of osteoarthritis and end-stage renal disease on dialysis, atrial fibrillation on Coumadin who presents after mechanical fall, found to have right femoral neck fracture. Her INR is currently supratherapeutic and therefore surgery has been delayed. PROBLEMS: 1. Right femoral neck fracture -Immobilization for now -Pain management with morphine, Tylenol, Morphine, tramadol as needed -Surgery planned for today. Postoperative recommendations per Orthopaedic surgery 2., Atrial fibrillation on Coumadin: -Holding Coumadin at this time -Continue Propafenone, Coreg 3. End-stage renal disease on dialysis: -Patient went for hemodialysis today. No issues -Nephrology consulted. Appreciate recommendations 4. GERD: -Continue home Protonix 5. Osteoporosis: -Continue Raloxifene 6. Mood disorder: -Continue Welbutrin 7. Sleep disorder: -Continue Rozerem DISPO: Pending surgery VS, I&O, 24H, Fishbone Vital Signs/I&O Vital Signs Date Time Temp Pulse Resp B/P (MAP) Pulse Ox O2 Delivery O2 Flow Rate FiO2 03/19/20 06:20 16 03/19/20 05:44 98.7 60 125/51 (75) 93 Room Air I&O- Last 24 Hours up to 6 AM 03/19/20 06:00 Intake Total 1410 ml Output Total 700 ml Balance 710 ml Laboratory Data 24H LABS Laboratory Tests 2 03/19/20 09:00: Nucleated Red Blood Cells % (auto) 0.0, Prothrombin Time 18.7H, Prothromb Time International Ratio 1.59, Anion Gap 10, Glomerular Filtration Rate 7.4L, Calcium Level 8.7L CBC/BMP Laboratory Tests 03/19/20 09:00 GME ATTESTATION GME ATTESTATION My faculty preceptor for this patient encounter was physically present during th e encounter and was fully available. All aspects of the patient interview, examination, medical decision making process, and medical care plan development were reviewed and approved by the faculty preceptor. The faculty preceptor is aware and concurs with the plan as stated in the body of this note and will attest to such by his/her cosignature. ATTENDING NOTE Patient was seen and examined by me and agree with the above assessment and plan DORIS JOHNSON MD March 19, 2020 12:58 RAUL CASTAÑEDA MD March 20, 2020 18:07
[2020-03-19 14:02] VITALS: BP 144/61
[2020-03-19] MEDS ORDERED: ceFAZolin 1GM VIAL (J0690 PER 500MG) As Ordered ONE (17:25)
[2020-03-19 17:32] LABS: INR 1.34; PARTIAL THROMBOPLASTIN TIME 30.9 SECONDS (25.0-38.4); PROTHROMBIN TIME 16.3 SECONDS (11.8-14.0)
[2020-03-19] MEDS ORDERED: EPINEPHrine INJ 1 MG/ML 1ML AMP As Ordered ONE ×2 (18:03→18:50)
[2020-03-19] MEDS ORDERED: KETAMINE HCL 200 MG/20 ML VIAL As Ordered ONE (18:13)
[2020-03-19] MEDS ORDERED: MIDAZOLAM INJ 2MG/2ML VIAL (J2250 PER 1MG) As Ordered ONE ×2 (18:14→19:17)
[2020-03-19] MEDS ORDERED: ceFAZolin 2 GM/D5W 50 ML IV BAG (J0690 PER 500MG) As Ordered ONE (18:38)
--- NOTE | 2020-03-19 19:17 | IPN ---
DATE: 03/19/2020 Ms. Santillan is seen this morning during hemodialysis. She is still in a lot of pain due to fractured right hip. Nursing staff reports that the patient is going to go to the operating room (OR) later today. He received vitamin K yesterday and international normalized ratio (INR) has come down to 1.5 range. She denies any dyspnea or chest pain. PHYSICAL EXAMINATION: Temperature 98.7 degrees Fahrenheit, heart rate 60 per minute, and respiratory rate 16 per minute. Blood pressure 125/50 mmHg and oxygen saturation 93% on room air. Head is atraumatic. Neck: Supple and without jugular venous distention (JVD) or thyroid enlargement. Heart sounds are regular and lungs clear to auscultation. Abdomen: Soft and nontender and bowel sounds are normal. Extremities without any cyanosis or clubbing. Her arteriovenous (AV) fistula is functioning and currently being used for dialysis. Right lower extremity is externally rotated due to fractured neck of femur. Today's labs show WBC count of 10.2, hemoglobin 9.3 and hematocrit 28.2. Platelets 237. Sodium 130, potassium 3.9, CO2 of 27, BUN 44 and creatinine 5.98. Calcium 8.7. INR is 1.59. PROBLEMS: 1. End-stage renal disease. The patient is being dialyzed today, and she is tolerating dialysis treatment very well. No fluid is being removed due to low blood pressure and anticipation of OR. Minimal amount of heparin has been used today. 2. Hyponatremia, most likely related to end-stage renal disease, and it will be corrected with dialysis. No other intervention will be needed. 3. Anticoagulation. Coumadin has been on hold due to fractured right hip. She was given vitamin K yesterday and INR has come down to 1.59. Her anticoagulation will be resumed after the surgery. 4. Right hip fracture. The patient is scheduled for OR later today. She is medically optimized from a renal standpoint. Her volume status is well compensated, and we are not removing any fluid today.
[2020-03-19] MEDS ORDERED: fentaNYL 100 MCG/2 ML INJECTION (J3010) IV PRN (20:30)
[2020-03-19] MEDS ORDERED: PERCOCET 5MG/325MG TAB PO PRN (20:30)
[2020-03-19] MEDS ORDERED: LR 1,000 ML IV SCH (20:30)
[2020-03-19] MEDS ORDERED: ONDANSETRON 4MG/2ML VIAL IV PRN (20:30)
[2020-03-19 21:04] VITALS: BP 143/60
[2020-03-19 22:24] VITALS: BP 128/47
[2020-03-19 23:58] VITALS: BP 127/46
[2020-03-20 00:30] VITALS: BP 128/47
[2020-03-20] MEDS: MORPHINE 4 MG/ML 1ML VIAL/SYRINGE (J2270) IV PRN ×3 (00:44→09:04)
[2020-03-20 01:30] VITALS: BP 128/52
[2020-03-20] MEDS: ceFAZolin SOD 2 GM in IV 1 EA IV SCH ×2 (02:49→08:50)
[2020-03-20] MEDS: traMADol 50 MG TAB PO PRN (05:28)
[2020-03-20] MEDS: ACETAMINOPHEN 500 MG TAB PO SCH (05:28)
[2020-03-20 06:00] VITALS: BP 137/55
[2020-03-20 06:54] LABS: HEMATOCRIT 28.9 % (36.0-47.0); HEMOGLOBIN 9.6 g/dl (12.0-15.5); MEAN CORPUSCULAR HEMOGLOBIN 32.4 pg (27.0-33.0); MEAN CORPUSCULAR HGB CONC 33.2 g/dl (32.0-36.5); MEAN CORPUSCULAR VOLUME 97.6 fl (80.0-96.0); PLATELET COUNT, AUTOMATED 248 10^3/uL (150-450); RED BLOOD COUNT 2.96 10^6/uL (4.00-5.40); WHITE BLOOD COUNT 10.4 10^3/uL (4.0-10.0)
[2020-03-20 07:07] LABS: INR 1.19; PROTHROMBIN TIME 14.8 SECONDS (11.8-14.0)
[2020-03-20 07:10] LABS: CALCIUM LEVEL 8.4 MG/DL (8.8-10.2); CREATININE FOR GFR 4.04 MG/DL (0.55-1.30); GLOMERULAR FILTRATION RATE 11.7 (>45); POTASSIUM SERUM 3.7 MEQ/L (3.5-5.1)
[2020-03-20 08:51] VITALS: BP 130/42
[2020-03-20] MEDS: buPROPion **XL** TABLET 150MG (WELLBUTRIN XL) PO SCH (08:51)
[2020-03-20] MEDS: PROPAFENONE 150 MG TAB PO SCH ×2 (08:52→20:40)
[2020-03-20] MEDS: PANTOPRAZOLE 40MG TAB (PROTONIX) PO SCH (08:53)
[2020-03-20] MEDS: DOCUSATE SODIUM 100 MG CAP PO SCH (08:53)
[2020-03-20] MEDS: CARVedilol 6.25 MG TAB PO SCH ×2 (08:53→20:36)
--- NOTE | 2020-03-20 09:23 | REP ---
RIGHT HIP: Two views. HISTORY: Status post right hip arthroplasty. Comparison radiographs February 15, 2020. FINDINGS: AP and frog-leg views of the right hip demonstrate right femoral head replacement in good position. Lateral skin jessica and some lateral soft tissue emphysema are noted postop. IMPRESSION: Right hip arthroplasty in place. Electronically Signed by Zach Brown MD 03/20/2020 04:12 P
[2020-03-20] MEDS: ONDANSETRON 4MG/2ML VIAL IV PRN ×2 (09:31→17:36)
[2020-03-20] MEDS ORDERED: DARBEPOETIN 100 MCG/0.5 ML *DIALYSIS* SYRINGE (J0882) IV SCH (12:15)
[2020-03-20] MEDS: PERCOCET 5MG/325MG TAB PO PRN ×2 (12:56→20:39)
[2020-03-20 14:00] VITALS: BP 128/53
--- NOTE | 2020-03-20 16:25 | IPN ---
DATE: 03/20/2020 Ms. Santillan is seen this morning on her bedside. She had her right hip surgery done yesterday and still feeling pain. She is not eating very well. She denies any dyspnea, chest pain, fever or chills. She did have her dialysis yesterday prior to surgery. On physical exam, temperature 99.3 degrees Fahrenheit, heart rate 60 per minute and respiratory rate 16 per minute. Blood pressure 130/42 mmHg and oxygen saturation 97% on room air. Head is atraumatic. Neck supple and without jugular venous distention (JVD) or thyroid enlargement. Heart sounds are regular and lungs clear to auscultation. Abdomen is soft and nontender. Bowel sounds are normal. Extremities without any cyanosis or clubbing. Neurologically, she is at her baseline mentation without any focal deficit. Today's labs show WBC count 10.4, hemoglobin 9.6 and hematocrit 28.9. Platelets 248. Sodium 133, potassium 3.7, CO2 26, BUN 24 and creatinine 4.04. Calcium level 8.4. PROBLEMS: 1. End-stage renal disease. Patient was dialyzed yesterday and next dialysis will be scheduled for tomorrow. No emergent need for dialysis today. 2. Hyponatremia. Some improvement noticed since yesterday with dialysis. Her hyponatremia is related to end-stage renal disease and will be corrected with dialysis further. No other intervention is indicated. 3. Anemia. Her anemia is stable even following surgery. At this point, we will continue to monitor and give her one dose of Aranesp 100 mcg. 4. Hypertension. Blood pressure is well-controlled on current medications and no changes are needed. 5. Right hip fracture status post hemiarthroplasty. Patient is still in pain. She is likely to require rehab as she will not be able to go home and do physical therapy due to need for dialysis and need for transportation [id number] for dialysis. I would recommend acute rehab evaluation.
[2020-03-20] MEDS: WARFARIN SOD 5 MG TAB PO SCH (17:37)
--- NOTE | 2020-03-20 18:28 | IPNPDOC ---
Date Seen The patient was seen on 03/20/20. Progress Note SUBJECTIVE: Patient seen and examined this morning at the bedside. She had her operation yesterday. She still feels as if she has a lot of pain despite having just gotten pain medications. She is not eating well. No issues reported from overnight. OBJECTIVE PHYSICAL EXAMINATION: VITAL SIGNS: Please see below. GENERAL APPEARANCE: Laying in bed, appears stated age, no acute distress, calm, cooperative HEENT: EOMI, PERRLA, neck is supple with no thyromegaly or lymphadenopathy RESPIRATORY: Lungs are clear to auscultation bilaterally with no adventitious breath sounds appreciated CARDIOVASCULAR: no JVD, RRR,no murmurs/rubs/gallops, normal S1 and S2 ABDOMEN: +BS, soft, nontender to palpation in all four quadrants, no masses/organomegaly EXTREMITIES: decreased range of motion of the right leg. NEUROLOGICAL: CN 2-12 intact, No obvious focal deficits PSYCHIATRIC: normal mood/affect Skin: No rashes or ulcers appreciated, warm and well-perfused LN: No significant cervical or inguinal lymphadenopathy LABORATORY DATA, IMAGING STUDIES, MICROBIOLOGY: Please see below. HIP AP/LAT: PELVIS RIGHT HIP: Three views. HISTORY: Trauma. FINDINGS: AP view of the pelvis and AP and frog-leg views of the right hip demonstrate a basicervical fracture of the right femoral neck in varus with slight impaction. The pelvic ring is intact. No sacral or pelvic fracture is seen. The left proximal femur appears intact. There are degenerative changes in the lumbosacral spine. IMPRESSION: Right femoral neck fracture in varus with slight impaction. DVT prophylaxis ordered?: Teds and sequentials ASSESSMENT AND PLAN: This is a 69-year-old female with history of osteoarthritis and end-stage renal disease on dialysis, atrial fibrillation on Coumadin who presents after mechanical fall, found to have right femoral neck fracture. Her INR is currently supratherapeutic and therefore surgery has been delayed. PROBLEMS: 1. Right femoral neck fracture -Immobilization for now -Pain management with morphine, Tylenol, Morphine, tramadol as needed -POD. Postoperative recommendations per Orthopaedic surgery 2., Atrial fibrillation on Coumadin: -Holding Coumadin at this time -Continue Propafenone, Coreg 3. End-stage renal disease on dialysis: -Next dialysis tomorrow -Nephrology consulted. Appreciate recommendations -Aranesp to address anemia of CKD 4. hx HTN: -BP WNL 5. GERD: -Continue home Protonix 6. Osteoporosis: -Continue Raloxifene 7. Mood disorder: -Continue Welbutrin 8. Sleep disorder: -Continue Rozerem DISPO: Pending surgery VS, I&O, 24H, Fishbone Vital Signs/I&O Vital Signs Date Time Temp Pulse Resp B/P (MAP) Pulse Ox O2 Delivery O2 Flow Rate FiO2 03/20/20 14:00 98.3 60 18 128/53 (78) 98 Room Air I&O- Last 24 Hours up to 6 AM 03/20/20 06:00 Intake Total 860 ml Output Total 900 ml Balance -40 ml Laboratory Data 24H LABS Laboratory Tests 2 03/20/20 06:24: Nucleated Red Blood Cells % (auto) 0.0, Prothrombin Time 14.8H, Prothromb Time International Ratio 1.19, Anion Gap 10, Glomerular Filtration Rate 11.7L, C alcium Level 8.4L CBC/BMP Laboratory Tests 03/20/20 06:24 GME ATTESTATION GME ATTESTATION My faculty preceptor for this patient encounter was physically present during the encounter and was fully available. All aspects of the patient interview, examination, medical decision making process, and medical care plan development were reviewed and approved by the faculty preceptor. The faculty preceptor is aware and concurs with the plan as stated in the body of this note and will attest to such by his/her cosignature. ATTENDING NOTE Patient was seen and examined by me with the residents. agree with the above assessment and plan . DORIS JOHNSON MD March 20, 2020 18:28 RAUL CASTAÑEDA MD March 21, 2020 16:21
[2020-03-20 22:00] VITALS: BP 127/52
[2020-03-21] MEDS: PERCOCET 5MG/325MG TAB PO PRN ×3 (04:58→20:49)
[2020-03-21 05:55] LABS: CREATININE FOR GFR 4.9 MG/DL (0.55-1.30)
[2020-03-21 05:56] LABS: CALCIUM LEVEL 8.9 MG/DL (8.8-10.2); GLOMERULAR FILTRATION RATE 9.4 (>45); POTASSIUM SERUM 3.8 MEQ/L (3.5-5.1)
[2020-03-21 05:59] LABS: INR 1.33; PROTHROMBIN TIME 16.2 SECONDS (11.8-14.0)
[2020-03-21 06:00] VITALS: BP 135/64
[2020-03-21] MEDS: DOCUSATE SODIUM 100 MG CAP PO SCH (06:05)
[2020-03-21] MEDS: buPROPion **XL** TABLET 150MG (WELLBUTRIN XL) PO SCH (06:06)
[2020-03-21] MEDS: PANTOPRAZOLE 40MG TAB (PROTONIX) PO SCH (06:06)
[2020-03-21] MEDS: PROPAFENONE 150 MG TAB PO SCH ×2 (06:06→20:49)
[2020-03-21 06:24] VITALS: BP 121/52
[2020-03-21 07:55] LABS: HEMATOCRIT 28.3 % (36.0-47.0); HEMOGLOBIN 9.2 g/dl (12.0-15.5); MEAN CORPUSCULAR HEMOGLOBIN 32.3 pg (27.0-33.0); MEAN CORPUSCULAR HGB CONC 32.5 g/dl (32.0-36.5); MEAN CORPUSCULAR VOLUME 99.3 fl (80.0-96.0); PLATELET COUNT, AUTOMATED 271 10^3/uL (150-450); RED BLOOD COUNT 2.85 10^6/uL (4.00-5.40); WHITE BLOOD COUNT 11.4 10^3/uL (4.0-10.0)
[2020-03-21] MEDS ORDERED: IRON SUCROSE 100MG 5ML VIAL (J1756 PER 1MG) IV SCH (10:45)
[2020-03-21] MEDS: ONDANSETRON 4MG/2ML VIAL IV PRN (10:48)
[2020-03-21] MEDS ORDERED: LIDOCAINE 1% SDV 5ML VIAL SQ ONE (12:15)
[2020-03-21] MEDS: CARVedilol 6.25 MG TAB PO SCH ×2 (13:01→20:50)
[2020-03-21 14:00] VITALS: BP 130/55
--- NOTE | 2020-03-21 16:04 | IPNPDOC ---
Date Seen The patient was seen on 03/21/20. Progress Note SUBJECTIVE: Patient seen and examined this morning in dialysis. She states she is still in pain. She feels dizzy/lightheaded, although her BP is 118/79. She is not eating much because she does not have much of an appetite. Otherwise, she has no complaints but wants to go home. OBJECTIVE PHYSICAL EXAMINATION: VITAL SIGNS: Please see below. GENERAL APPEARANCE: Laying in bed, appears stated age, no acute distress, calm, cooperative HEENT: EOMI, PERRLA, neck is supple with no thyromegaly or lymphadenopathy RESPIRATORY: Lungs are clear to auscultation bilaterally with no adventitious breath sounds appreciated CARDIOVASCULAR: no JVD, RRR,no murmurs/rubs/gallops, normal S1 and S2 ABDOMEN: +BS, soft, nontender to palpation in all four quadrants, no masses/organomegaly EXTREMITIES: decreased range of motion of the right leg. NEUROLOGICAL: CN 2-12 intact, No obvious focal deficits PSYCHIATRIC: normal mood/affect Skin: No rashes or ulcers appreciated, warm and well-perfused LN: No significant cervical or inguinal lymphadenopathy LABORATORY DATA, IMAGING STUDIES, MICROBIOLOGY: Please see below. DVT prophylaxis ordered?: Teds and sequentials, on Coumadin ASSESSMENT AND PLAN: This is a 69-year-old female with history of osteoarthritis and end-stage renal disease on dialysis, atrial fibrillation on Coumadin who presents after mechanical fall, found to have right femoral neck fracture. She is s/p R hip repair, working with PT, pending placement in rehab. PROBLEMS: 1. Right femoral neck fracture -PT/OT on board -Pain management with morphine, Tylenol, Morphine, tramadol as needed -Postoperative recommendations per Orthopaedic surgery -ARU screen in place for possible rehab 2., Atrial fibrillation on Coumadin: -Continue Coumadin at this time -Continue Propafenone, Coreg 3. End-stage renal disease on dialysis: -HD today -Nephrology consulted. Appreciate recommendations -Aranesp to address anemia of CKD 4. hx HTN: -BP WNL 5. GERD: -Continue home Protonix 6. Osteoporosis: -Continue Raloxifene 7. Mood disorder: -Continue Welbutrin 8. Sleep disorder: -Continue Rozerem DISPO: POssible rehab placement VS, I&O, 24H, Fishbone Vital Signs/I&O Vital Signs Date Time Temp Pulse Resp B/P (MAP) Pulse Ox O2 Delivery O2 Flow Rate FiO2 03/21/20 14:00 99.4 77 20 130/55 (80) 95 Room Air I&O- Last 24 Hours up to 6 AM 03/21/20 05:59 Intake Total 1640 ml Output Total 400 ml Balance 1240 ml Laboratory Data 24H LABS Laboratory Tests 2 03/21/20 04:44: Nucleated Red Blood Cells % (auto) 0.0 03/21/20 04:55: Prothrombin Time 16.2H, Prothromb Time International Ratio 1.33, Anion Gap 13, Glomerular Filtration Rate 9.4L, Calcium Level 8.9 CBC/BMP Laboratory Tests 03/21/20 04:44 03/21/20 04:55 GME ATTESTATION GME ATTESTATION My faculty preceptor for this patient encounter was physically present during the encounter and was fully available. All aspects of the patient interview, examination, medical decision making process, and medical care plan development were reviewed and approved by the faculty preceptor. The faculty preceptor is aware and concurs with the plan as stated in the body of this note and will attest to such by his/her cosignature. ATTENDING NOTE Patient was seen and examined by me with the residents. agree with the above assessment and plan . DORIS JOHNSON MD March 21, 2020 16:04 RAUL CASTAÑEDA MD March 21, 2020 16:22
[2020-03-21] MEDS: WARFARIN SOD 5 MG TAB PO SCH (17:20)
[2020-03-21 20:00] VITALS: BP 130/53
[2020-03-21] MEDS: RAMELTEON 8 MG TAB (ROZEREM) PO PRN (20:49)
[2020-03-22 05:48] LABS: INR 1.64; PROTHROMBIN TIME 19.2 SECONDS (11.8-14.0)
[2020-03-22 06:07] VITALS: BP 110/60
[2020-03-22] MEDS ORDERED: MAGNESIUM CITRATE 300 ML BTL PO ONE (06:15)
[2020-03-22] MEDS: PERCOCET 5MG/325MG TAB PO PRN ×3 (06:31→19:51)
[2020-03-22] MEDS: CARVedilol 6.25 MG TAB PO SCH (09:00)
[2020-03-22] MEDS: MIRALAX *UNIT DOSE* 17GM PACKET PO SCH (09:09)
[2020-03-22] MEDS: DOCUSATE SODIUM 100 MG CAP PO SCH (09:09)
[2020-03-22] MEDS: buPROPion **XL** TABLET 150MG (WELLBUTRIN XL) PO SCH (09:09)
[2020-03-22] MEDS: PANTOPRAZOLE 40MG TAB (PROTONIX) PO SCH (09:10)
[2020-03-22] MEDS: PROPAFENONE 150 MG TAB PO SCH ×2 (09:10→21:17)
[2020-03-22 09:15] VITALS: BP 102/52
--- NOTE | 2020-03-22 11:20 | IPN ---
DATE: 03/21/2020 SUBJECTIVE: Patient was seen and examined at the bedside today morning during hemodialysis. Patient is tolerating the hemodialysis procedure well. She denies any active complaints. She is afebrile and hemodynamically stable. OBJECTIVE: Vital signs: Temperature is 98.4 degrees Fahrenheit, blood pressure 130/53, pulse is 77, respiratory rate of 18, saturating 97% on with room air. Intake and output: Her urine output recorded since overnight is 400 mL. Weight on the bed scale is not available. PHYSICAL EXAM: Patient is awake, alert, oriented times three, laying in bed, getting hemodialysis done. Head and neck exam: Extraocular muscles intact. Pupils equally round and reactive to light. Mucous membranes are moist. Neck is supple. There is no jugular venous distention (JVD). Cardiovascular: S1, S2, regular rate. No edema of the bilateral lower extremities. Respiratory: Chest is clear to auscultation bilaterally. Bilateral equal air entry. No rales or rhonchi. Abdomen: Is soft. Positive bowel sounds. Nontender. No organomegaly. Musculoskeletal: Mild decreased range of movement of the right leg from recent surgery. She has a dessing on the right hip. Central nervous system ([employer]): No focal deficit. Power is 5/5 in bilateral upper extremities. Arteriovenous (AV) access. Patient has a right forearm AV fistula, which is being used for dialysis. LAB REVIEW: CBC showed a WBC of 11.4, hemoglobin 9.2, platelets are 271. BMP showed sodium 132, potassium 3.8, chloride 94, bicarbonate 25, BUN 37, creatinine is 4.9. CURRENT INPATIENT MEDICATIONS: Patient's medications were all reviewed by myself. I have started the patient on intravenous (IV) Venofer with dialysis. No other change in the medications today as compared with yesterday. ASSESSMENT AND PLAN: 1. End-stage renal disease. Patient is being dialyzed according to her regular schedule. Volume status is optimized. 2. Anemia on end-stage renal disease. Patient is already on Aranesp. Because of recent surgery and possible blood, I have started the patient on IV Venofer as well. 3. Hypertension with end-stage renal disease. Continue current dose of carvedilol 12.5 mg by mouth twice a day. Blood pressure is optimized. 4. Atrial fibrillation. Heart rate is controlled. She continues to be on Coumadin, propafenone, and carvedilol.
--- NOTE | 2020-03-22 11:34 | IPNPDOC ---
Subjective Date Seen The patient was seen on 03/22/20. Subjective Chief Complaint/HPI Pt is a 69 year old female admitted to the hospital following a trip and fall at home. ED/admission work-up: was found to have a Fx of the right femoral head, COVID-19 negative with ortho consult. Pt was assessed by Dr. Low - recommended hemiarthroplasty due to pts Hx of osteopmyelitis in RLE, A-fib on Coumadin, femoral Fx and pt age. Pt cleared for surgery once INR < 2.0. Nephrology on board due to history of ESRD, current dialysis status. Pt seen sitting up in bed this morning. She has denied any symptoms or overnight symptoms. Pain is very well controlled. She has eaten this morning and is currently taking her medications. Nursing was at the bedside: pt BP low following administration of her Percocet; pt has been asymptomatic. BP is typically low following HD. No further issues at this time. General: Reports: Normal Appetite; Denies: Chills, Night Sweats, Fatigue, Malaise Constitutional: Denies: Chills, Fever, Night Sweats Eyes: Denies: Pain ENT: Denies: Head Aches, Ear Pain Skin: Denies: Rash Pulmonary: Denies: Dyspnea, Cough Cardiovascular: Denies: Chest Pain, Palpitations, Orthopnea, Lt Headedness Gastrointestinal: Denies: Nausea, Vomiting, Abdominal Pain, Diarrhea, Constipation Genitourinary: Denies: Dysuria Hematologic: Denies: Bruising Musculoskeletal: Denies: Neck Pain, Back Pain, Joint Pain Neurological: Denies: Weakness, Numbness Psych: Reports: Mood Normal; Denies: Depression, Memory Issues Objective Physical Examination General Exam: Positive: Alert, No Acute Distress Eye Exam: Positive: PERRLA, Conjunctiva & lids normal; Negative: Sclera icteric ENT Exam: Positive: Atraumatic, Mucous membr. moist/pink, Pharynx Normal Chest Exam: Positive: Clear to auscultation, Normal air movement Heart Exam: Positive: Rate Normal, Regular Rhythm, Other (Distant heart sounds ); Negative: Rubs Telemetry: Positive: No significant arrhythmia Abdomen Exam: Positive: Normal bowel sounds, Soft; Negative: Tenderness Female Exam: Positive: Odor Extremity Exam: Positive: Normal pulses, Other (surgical wound R hip bandaged - no erythema, bruising, TTP ); Negative: Clubbing, Cyanosis, Edema Skin Exam: Positive: Nl turgor and temperature Neuro Exam: Positive: Normal Speech Psych Exam: Positive: Mood NL, Oriented x 3 Assessment /Plan Assessment 1. Right femoral neck Fx. - post-op hemiarthroplasty 03/19 - PT/OT underway; ARU screen - pending as recommended by Dr Banuelos - Continued management per orthopedics. - PRN morphine on hold as BP soft 2. A-fib - continue Coumadin - Coreg on hold until 03/23/20 due to soft BPs; continue Propafenone 3. ESRD on HD - Dialysis tomorrow per pt - Continued management per nephrology - Aranesp continued to address anemia of chronic disease 4. HTN - BP soft this morning at 88/44 when seen; pt asymptomatic - All BP meds on hold this morning - Encouraged to increase PO fluid intake; BP recovered to 102/52. Remains asymptomatic at the time writing per nursing, will continue to monitor. 5. GERD - continue PPI 6. Osteoporosis - continue home medication 7. Depression - continue Wellbutrin 8. Insomnia - continue Rozerem Dispo: ARU if accepted Plan/VTE VTE Prophylaxis Ordered?: Yes (Warfarin ) VS, I&O, 24H, Fishbone Vital Signs/I&O Vital Signs Date Time Temp Pulse Resp B/P (MAP) Pulse Ox O2 Delivery O2 Flow Rate FiO2 03/22/20 09:15 102/52 (69) 03/22/20 09:00 71 03/22/20 07:01 17 03/22/20 06:07 97.5 97 Room Air I&O- Last 24 Hours up to 6 AM 03/22/20 05:59 Intake Total 960 ml Output Total 900 ml Balance 60 ml Laboratory Data 24H LABS Laboratory Tests 2 03/22/20 04:54: Prothrombin Time 19.2H, Prothromb Time International Ratio 1.64 RACHNA KHAN PA-C March 22, 2020 11:34
[2020-03-22 11:46] LABS: BASO # 0.1 10^3/uL (0.0-0.2); BASO % 0.6 % (0.0-1.0); EOS # 0.2 10^3/uL (0.0-0.5); EOS % 1.8 % (0.0-3.0); HEMATOCRIT 25.5 % (36.0-47.0); HEMOGLOBIN 8.3 g/dl (12.0-15.5); LYMPH # 0.9 10^3/uL (1.5-5.0); LYMPH % 9.1 % (24.0-44.0); MEAN CORPUSCULAR HEMOGLOBIN 32.8 pg (27.0-33.0); MEAN CORPUSCULAR HGB CONC 32.5 g/dl (32.0-36.5); MEAN CORPUSCULAR VOLUME 100.8 fl (80.0-96.0); MONO # 1.3 10^3/uL (0.0-0.8); MONO % 13.6 % (0.0-5.0); NEUTROPHILS # 7.1 10^3/uL (1.5-8.5); NEUTROPHILS % 74.3 % (36.0-66.0); PLATELET COUNT, AUTOMATED 279 10^3/uL (150-450); RED BLOOD COUNT 2.53 10^6/uL (4.00-5.40); WHITE BLOOD COUNT 9.5 10^3/uL (4.0-10.0)
--- NOTE | 2020-03-22 13:21 | IPN ---
DATE: 03/22/2020 SUBJECTIVE: Patient was seen and examined at the bedside today morning. She is afebrile, hemodynamically stable. She had a bowel movement yesterday after many days. She was dialyzed yesterday. She tolerated the hemodialysis procedure well. OBJECTIVE: Vital signs: Temperature is 97.5 degrees Fahrenheit, blood pressure 110/60, pulse is 68, respiratory rate of 18, saturating 97% on room air. Intake and output: Urine output recorded is 400 mL yesterday. Ultrafiltration with hemodialysis was 500 mL. Weight on the bed scale is not available. PHYSICAL EXAM: General: Patient is awake, alert, oriented times three, laying in bed, in no apparent distress. Head and neck exam: Extraocular muscles intact. Pupils equally round and reactive to light. Mucous membranes are moist. Neck is supple. There is no jugular venous distention (JVD). Cardiovascular: S1, S2, regular rate. No edema on the bilateral lower extremities. Respiratory: Chest is clear to auscultation bilaterally. Bilateral equal air entry. No rales or rhonchi. Abdomen: Is soft. Positive bowel sounds. Nontender. No organomegaly. Musculoskeletal: Patient has a dressing on the right thigh from the hip surgery. Central nervous system (CAPTURE MANAGER): No focal deficit, Power is 5/5 in bilateral upper extremities. LAB REVIEW: CBC showed a WBC of 11.4 and hemoglobin of 9.2, untouched from yesterday. No BMP available from today. CURRENT INPATIENT MEDICATIONS: Patient's medications were all reviewed by myself. No change in the medications today as compared with yesterday. ASSESSMENT AND PLAN: 1. End-stage renal disease. Patient was dialyzed yesterday. She tolerated the hemodialysis procedure well. Neck hemodialysis will be on Monday. 2. Anemia on end-stage renal disease. Patient is currently on Venofer and Aranesp. Hemoglobin level is slowly improving. 3. Hypertension with end-stage renal disease. Continue current dose of carvedilol. 4. Atrial fibrillation. Heart rate is controlled. She is on propafenone and carvedilol and Coumadin. 5. Right hip fracture, status post hemiarthroplasty. Patient is getting physical therapy. She is gaining her strength back.
[2020-03-22 14:00] VITALS: BP 101/40
[2020-03-22] MEDS: WARFARIN SOD 5 MG TAB PO SCH (17:13)
[2020-03-22 22:11] VITALS: BP 131/59
[2020-03-23 06:01] VITALS: BP 132/60
[2020-03-23] MEDS: PERCOCET 5MG/325MG TAB PO PRN ×4 (06:03→20:58)
[2020-03-23 08:01] LABS: INR 1.92; PROTHROMBIN TIME 21.7 SECONDS (11.8-14.0)
[2020-03-23 08:07] LABS: ALBUMIN 1.9 GM/DL (3.2-5.2); ALT/SGPT < 6 U/L (12-78); BILIRUBIN,TOTAL 0.3 MG/DL (0.2-1.0); BLOOD UREA NITROGEN 38 MG/DL (7-18); CARBON DIOXIDE LEVEL 26 MEQ/L (21-32); CHLORIDE LEVEL 97 MEQ/L (98-107); CREATININE FOR GFR 4.53 MG/DL (0.55-1.30); GLOMERULAR FILTRATION RATE 10.2 (>45); GLUCOSE, FASTING 93 MG/DL (70-100); POTASSIUM SERUM 3.5 MEQ/L (3.5-5.1); SODIUM LEVEL 134 MEQ/L (136-145); TOTAL PROTEIN 5.2 GM/DL (6.4-8.2)
[2020-03-23] MEDS: buPROPion **XL** TABLET 150MG (WELLBUTRIN XL) PO SCH (08:46)
[2020-03-23] MEDS: PANTOPRAZOLE 40MG TAB (PROTONIX) PO SCH (08:46)
[2020-03-23] MEDS: PROPAFENONE 150 MG TAB PO SCH ×2 (08:46→20:58)
[2020-03-23] MEDS: DOCUSATE SODIUM 100 MG CAP PO SCH (08:47)
[2020-03-23] MEDS: MIRALAX *UNIT DOSE* 17GM PACKET PO SCH (08:47)
[2020-03-23] MEDS: CARVedilol 6.25 MG TAB PO SCH ×2 (09:54→20:58)
--- NOTE | 2020-03-23 13:23 | IPNPDOC ---
Date Seen The patient was seen on 03/23/20. Progress Note SUBJECTIVE: Patient seen and examined this morning at the bedside. She had just worked with PT and was having minimal but tolerable pain in her hip. Otherwise, she reports having 3-4 bowel movements between yesterday to today, most likely 2/2 stool softeners and laxatives given postoperatively. She wishes to stop taking these. Otherwise, she is amenable to going to ARU/inpatient rehab in the near future. She had no other complaints. OBJECTIVE PHYSICAL EXAMINATION: VITAL SIGNS: Please see below. GENERAL APPEARANCE: Laying in bed, appears stated age, no acute distress, calm, cooperative HEENT: EOMI, PERRLA, neck is supple with no thyromegaly or lymphadenopathy RESPIRATORY: Lungs are clear to auscultation bilaterally with no adventitious breath sounds appreciated CARDIOVASCULAR: no JVD, RRR,no murmurs/rubs/gallops, normal S1 and S2 ABDOMEN: +BS, soft, nontender to palpation in all four quadrants, no masses/organomegaly EXTREMITIES: decreased range of motion of the right leg. NEUROLOGICAL: CN 2-12 intact, No obvious focal deficits PSYCHIATRIC: normal mood/affect Skin: No rashes or ulcers appreciated, warm and well-perfused LN: No significant cervical or inguinal lymphadenopathy LABORATORY DATA, IMAGING STUDIES, MICROBIOLOGY: Please see below. DVT prophylaxis ordered?: Briana and amanda, on Coumadin ASSESSMENT AND PLAN: This is a 69-year-old female with history of osteoarthritis and end-stage renal disease on dialysis, atrial fibrillation on Coumadin who presents after mechanical fall, found to have right femoral neck fracture. She is s/p R hip repair, working with PT, pending placement in rehab. PROBLEMS: 1. Right femoral neck fracture POD #5 -PT/OT on board -Pain management with morphine, Tylenol, Morphine, tramadol as needed -Postoperative recommendations per Orthopaedic surgery -ARU screen in place for possible rehab -Docusate/laxatives held for diarrhea 2., Atrial fibrillation on Coumadin: -Continue Coumadin at this time -Continue Propafenone, Coreg 3. End-stage renal disease on dialysis: -HD today -Nephrology consulted. Appreciate recommendations -Aranesp to address anemia of CKD 4. hx HTN: -BP WNL 5. GERD: -Continue home Protonix 6. Osteoporosis: -Continue Raloxifene 7. Mood disorder: -Continue Welbutrin 8. Sleep disorder: -Continue Rozerem DISPO: Possible rehab placement Attending attestation: I evaluated and examined the patient in person; I discussed the care with Resident in detail and agree with the plan above. VS, I&O, 24H, Fishbone Vital Signs/I&O Vital Signs Date Time Temp Pulse Resp B/P (MAP) Pulse Ox O2 Delivery O2 Flow Rate FiO2 03/23/20 10:24 18 03/23/20 09:54 Room Air 03/23/20 09:54 91 132/60 03/23/20 06:01 97.6 95 I&O- Last 24 Hours up to 6 AM 03/23/20 06:00 Intake Total 1470 ml Output Total 50 ml Balance 1420 ml Laboratory Data 24H LABS Laboratory Tests 2 03/23/20 06:58: Prothrombin Time 21.7H, Prothromb Time International Ratio 1.92, Anion Gap 11, Glomerular Filtration Rate 10.2L, Calcium Level 9.0, Total Bilirubin 0.3, Aspartate Amino Transf (AST/SGOT) 12, Alanine Aminotransferase (ALT/SGPT) < 6L, Alkaline Phosphatase 63, Total Protein 5.2L, Albumin 1.9L, Albumin/Globulin Ratio 0.6L CBC/BMP Laboratory Tests 03/23/20 06:58 GME ATTESTATION GME ATTESTATION My faculty preceptor for this patient encounter was physically present during the encounter and was fully available. All aspects of the patient interview, examination, medical decision making process, and medical care plan development were reviewed and approved by the faculty preceptor. The faculty preceptor is aware and concurs with the plan as stated in the body of this note and will attest to such by his/her cosignature. DORIS JOHNSON MD March 23, 2020 13:23 NAHID CHERRY MD March 23, 2020 22:03
[2020-03-23 14:06] VITALS: BP 107/49
[2020-03-23] MEDS: WARFARIN SOD 5 MG TAB PO SCH (16:33)
--- NOTE | 2020-03-23 17:22 | IPN ---
DATE: 03/23/2020 SUBJECTIVE: The patient was seen and examined at the bedside today morning. She is afebrile, hemodynamically stable. She denies any active complaints. She reports that she has been accepted by acute rehabilitation unit, and she is going to be transferred to rehabilitation unit soon. OBJECTIVE: Vital signs: Temperature is 97.6 degrees Fahrenheit, blood pressure 132/60, pulse is 91, respiratory rate of 18, saturating 95% on room air. Intake and output: There is no urine output recorded. She had a postvoid residual of 264. Weight in the bed is not available. PHYSICAL EXAMINATION: GENERAL: The patient is awake, alert, oriented times three, lying in bed in no apparent distress. HEAD AND NECK: Extraocular muscles intact. Pupils equally round and reactive to light. Mucous membranes are moist. Neck is supple. There is no jugular venous distention (JVD). CARDIOVASCULAR: S1, S2, regular rate. No edema of the bilateral extremities. RESPIRATORY: Chest is clear to auscultation bilaterally. Bilateral equal air entry. No rales or rhonchi. ABDOMEN: Soft. Positive bowel sounds. Nontender. No organomegaly. MUSCULOSKELETAL: She has a dressing on the right hip. CENTRAL NERVOUS SYSTEM: No focal deficit. Power is 5/5 in all extremities. LABORATORY DATA: CBC showed a WBC 9.5, hemoglobin 8.3, and that is yesterday. BMP done today morning showed sodium 134, potassium 3.5, chloride 97, bicarbonate 26, BUN 38, creatinine 4.5. CURRENT INPATIENT MEDICATIONS: Patient's medications were all reviewed by myself. There is no significant change in the medications today as compared with yesterday. ASSESSMENT AND PLAN: 1. End-stage renal disease. The patient is on Monday, , Monday schedule. She will be dialyzed tomorrow morning. 2. Anemia and end-stage renal disease. Continue current dose of Venofer and Aranesp. Hemoglobin level is expected to improve with the current dose. 3. Hypertension with end-stage renal disease. Continue carvedilol. 4. Atrial fibrillation. Heart rate is controlled with Coreg and propafenone, and she is anticoagulated with Coumadin. 5. Right hip fracture. The patient is status post right hip hemiarthroplasty. She is going to be transferred to rehabilitation today.
[2020-03-23 20:57] VITALS: BP 124/57
[2020-03-23] MEDS: RAMELTEON 8 MG TAB (ROZEREM) PO PRN (20:58)
[2020-03-24 05:50] VITALS: BP 123/57
[2020-03-24] MEDS: buPROPion **XL** TABLET 150MG (WELLBUTRIN XL) PO SCH (05:51)
[2020-03-24 05:52] VITALS: BP 123/57
[2020-03-24 05:52] LABS: HEMATOCRIT 27.9 % (36.0-47.0); MEAN CORPUSCULAR HEMOGLOBIN 32.4 pg (27.0-33.0); MEAN CORPUSCULAR HGB CONC 32.3 g/dl (32.0-36.5); MEAN CORPUSCULAR VOLUME 100.4 fl (80.0-96.0); PLATELET COUNT, AUTOMATED 329 10^3/uL (150-450); RED BLOOD COUNT 2.78 10^6/uL (4.00-5.40); WHITE BLOOD COUNT 7.6 10^3/uL (4.0-10.0)
[2020-03-24] MEDS: PROPAFENONE 150 MG TAB PO SCH (05:52)
[2020-03-24] MEDS: CARVedilol 6.25 MG TAB PO SCH (05:52)
[2020-03-24] MEDS: PANTOPRAZOLE 40MG TAB (PROTONIX) PO SCH (05:52)
[2020-03-24] MEDS: PERCOCET 5MG/325MG TAB PO PRN ×2 (05:52→11:39)
[2020-03-24 05:58] LABS: ALBUMIN 1.8 GM/DL (3.2-5.2); ALT/SGPT < 6 U/L (12-78); BILIRUBIN,TOTAL 0.3 MG/DL (0.2-1.0); BLOOD UREA NITROGEN 42 MG/DL (7-18); CALCIUM LEVEL 9.2 MG/DL (8.8-10.2); CARBON DIOXIDE LEVEL 25 MEQ/L (21-32); CHLORIDE LEVEL 100 MEQ/L (98-107); GLOMERULAR FILTRATION RATE 9.6 (>45); GLUCOSE, FASTING 93 MG/DL (70-100); POTASSIUM SERUM 3.3 MEQ/L (3.5-5.1); SODIUM LEVEL 135 MEQ/L (136-145)
[2020-03-24] MEDS ORDERED: POTASSIUM CHLORIDE 10 MEQ SR TABLET PO ONE ×2 (07:30→18:00)
[2020-03-24] MEDS ORDERED: PERCOCET PO (10:28)
--- NOTE | 2020-03-24 14:14 | DS.PDOC ---
Discharge Summary General Date of Admission March 16, 2020 at 20:53 Date of Discharge March 24, 2020 Primary Care Physician: ERIC PALACIOS DO Attending Physician: NAHID CHERRY MD Specialist/Consultants Involve: NHUNG DILLARD MD Discharge Summary PROCEDURES PERFORMED DURING STAY: [None]. ADMITTING DIAGNOSES: 1. R femoral fracture 2. ESRD 3. Atrial fibrillation on Coumadin DISCHARGE DIAGNOSES: 1. R femoral fracture 2. ESRD 3. Atrial fibrillation on Coumadin COMPLICATIONS/CHIEF COMPLAINT: Fractured Femoral Neck. HISTORY OF PRESENT ILLNESS: 69yo W with ESRD on HD TThSat, Afib on coumadin, HTN, HLD, hx of right ankle fracture s/p ORIF who tripped and fell onto her right side. She denied hitting her head, LOC, chest pain, palpitations, dizziness or vertigo, N/V/D, recent fever, chills, travel, sick contacts. She was otherwise feeling well and going about her day when she tripped and fell and came in with severe R hip pain. In the ED she was hypertensive but otherwise HDS, afebrile, breathing comfortably on room air and reports severe pain when she moves. In the ED, she was given morphine 4mg and zofran IV with mild improvement in her pain. Workup was notable for R hip and fevmer XR that showed a right femoral head fracture, CXR that was wnl with no rib fractures or cardiopulmonary abnormalities, EKG with NSR with RBBB, INR 3.78, hgb 12, WBC 16.7, platelets 277, na 135, K 4, Cr 5.58, glucose 145, while covid-19 testing was negative. Orthopedic surgery was consulted in the ED and recommended holding her warfarin, pain control and medical optimization for surgery. HOSPITAL COURSE: The patient was admitted after a fall at home found to have a R femoral fracture. Orthopedic surgery was consulted and recommended hemiarthroplasty. The patient's INR was found to be supratherapeutic and surgery was therefore delayed for 3 days after admission. Nephrology was consulted for ongoing dialysis management. The patient had her procedure on 03/19 with no untoward event reported. She subsequently continued to work with physical therapy and undergo dialysis as recommended by nephrology. She was discharged to the Acute Rehabilitation Unit in stable state on 03/24/2020. DISCHARGE MEDICATIONS: Please see below. ALLERGIES: Please see below. PHYSICAL EXAMINATION ON DISCHARGE: VITAL SIGNS: Please see below. GENERAL APPEARANCE: Laying in bed, appears stated age, no acute distress, calm, cooperative HEENT: EOMI, PERRLA, neck is supple with no thyromegaly or lymphadenopathy RESPIRATORY: Lungs are clear to auscultation bilaterally with no adventitious breath sounds appreciated CARDIOVASCULAR: no JVD, RRR,no murmurs/rubs/gallops, normal S1 and S2 ABDOMEN: +BS, soft, nontender to palpation in all four quadrants, no masses/organomegaly EXTREMITIES: decreased range of motion of the right leg. NEUROLOGICAL: CN 2-12 intact, No obvious focal deficits PSYCHIATRIC: normal mood/affect Skin: No rashes or ulcers appreciated, warm and well-perfused LN: No significant cervical or inguinal lymphadenopathy LABORATORY DATA: Please see below. IMAGING: HIP AP/LAT: PELVIS RIGHT HIP: Three views. HISTORY: Trauma. FINDINGS: AP view of the pelvis and AP and frog-leg views of the right hip demonstrate a basicervical fracture of the right femoral neck in varus with slight impaction. The pelvic ring is intact. No sacral or pelvic fracture is seen. The left proximal femur appears intact. There are degenerative changes in the lumbosacral spine. IMPRESSION: Right femoral neck fracture in varus with slight impaction. PROGNOSIS: fair ACTIVITY: [As tolerated]. DIET: renal diet DISCHARGE PLAN: ARU DISPOSITION: 62 D/T Rehab Facility. DISCHARGE INSTRUCTIONS: 1. Follow up with Nephrology within 14 days. ITEMS TO FOLLOWUP ON ON OUTPATIENT: 1. none DISCHARGE CONDITION: [Stable]. TIME SPENT ON DISCHARGE: Greater than 35 minutes. Vital Signs/I&Os Vital Signs Date Time Temp Pulse Resp B/P (MAP) Pulse Ox O2 Delivery O2 Flow Rate FiO2 03/24/20 11:39 18 03/24/20 05:52 80 123/57 03/24/20 05:50 98.2 97 Room Air I&O- Last 24 Hours up to 6 AM 03/24/20 06:00 Intake Total 1440 ml Output Total 1464 ml Balance -24 ml Laboratory Data Labs 24H Laboratory Tests 2 03/24/20 05:16: Nucleated Red Blood Cells % (auto) 0.0, Anion Gap 10, Glomerular Filtration Rate 9.6L, Calcium Level 9.2, Total Bilirubin 0.3, Aspartate Amino Transf (AST/SGOT) 10, Alanine Aminotransferase (ALT/SGPT) < 6L, Alkaline Phosphatase 58, Total Protein 6.0L, Albumin 1.8L, Albumin/Globulin Ratio 0.4L CBC/BMP Laboratory Tests 03/24/20 05:16 Discharge Medications Scheduled Bupropion HCl (Bupropion Xl) 300 Mg Tab, 300 MG PO DAILY, (Reported) Carvedilol (Carvedilol) 6.25 Mg Tablet, 12.5 MG PO BID, (Reported) Docusate Sodium (Stool Softener) 100 Mg Cap, 100 MG PO DAILY, (Reported) Pantoprazole Sodium (Pantoprazole Sodium) 40 Mg Tablet.dr, 40 MG PO DAILY, (Reported) Propafenone HCl (Propafenone HCl) 300 Mg Tablet, 300 MG PO BID, (Reported) Raloxifene HCl (Raloxifene HCl) 60 Mg Tab, 60 MG PO QHS, (Reported) Warfarin Sodium (Warfarin Sodium) 5 Mg Tablet, 5 MG PO DAILY, (Reported) Scheduled PRN Fexofenadine HCl (Fexofenadine HCl) 180 Mg Tablet, 180 MG PO for prn, (Reported) Oxycodone/Acetaminophen (Oxycodone-Acetaminophen 5-325) 1 Each Tablet, 1 TAB PO Q8HP PRN for MODERATE PAIN Polyethylene Glycol 3350 (Miralax) 1 Pow Pow, 17 GM PO DAILY PRN for CONSTIPATION, (Reported) Allergies Coded Allergies: Sulfa (Sulfonamide Antibiotics) (Verified Adverse Reaction, Intermediate, upset stomach, 06/27/19) GME ATTESTATION GME ATTESTATION My faculty preceptor for this patient encounter was physically present during the encounter and was fully available. All aspects of the patient interview, examination, medical decision making process, and medical care plan development were reviewed and approved by the faculty preceptor. The faculty preceptor is aware and concurs with the plan as stated in the body of this note and will attest to such by his/her cosignature. DORIS JOHNSON MD March 24, 2020 14:02
--- NOTE | 2020-03-25 13:55 | RO ---
DATE OF PROCEDURE: 03/19/2020 PREOPERATIVE DIAGNOSIS: Right displaced femoral neck fracture. POSTOPERATIVE DIAGNOSIS: Right displaced femoral neck fracture PROCEDURE: Right hip hemiarthroplasty cemented using a size 6 [place] stem with a +0 neck length and a 46-mm ball. The prosthesis was made by [employer]. SURGEON: Shankar Low MD ASL INTERPRETER: None. ANESTHESIA: Spinal. COMPLICATIONS: None. ESTIMATED BLOOD LOSS: 150 mL. SPECIMENS: Femoral head. DESCRIPTION OF PROCEDURE: Antibiotics were given 2 grams Kefzol intravenously preoperatively. A successful spinal anesthetic was induced. Then, she was placed onto the operating room table on a beanbag in a lateral position with right hip uppermost. Down leg well padded, especially the peroneal nerve; and an axillary roll was utilized. The right hip area was then carefully prepped and draped in the usual sterile fashion. After appropriate time-out, a longitudinal incision was made laterally for a direct lateral approach to the hip. Bovie cautery was used to coagulate the crossing vessels down to the tensor fascia, which was divided in line with the skin incision. We split the gluteus medius anterior one-third and posterior two-third junction. It is noteworthy, however, as we got under the tensor fascia layer that there was chronic absence of attachment of the gluteus medius to the greater trochanter and consistent with chronic trochanteric bursitis. We divided the underlying gluteus minimus and anterior hip capsule and carefully dissected the tissues off the proximal femur as we externally rotated the hip and placed the leg into a leg bag anteriorly. The pyriformis fossa was identified. Starter reamer utilized, followed with the canal-finding reamer, then the lateralizing reamer; and then we reamed up to a size 6. A proximal femoral osteotomy was performed using the guide, and then we began broaching up to a size 6. We were about just shy of a fingerbreadth above the lesser trochanter. We then irrigated out the acetabulum and removed excess bone fragments and then after we removed the femoral head. The femoral head measured at 46 mm. We trialed with the +0 by 46-mm ball and reduced the hip. It was very stable with minimal telescoping. She was very stable to flexion internal and external rotation. So, I thought this was the appropriate size to use. We, thus, removed the trial. Then, I prepared the bony surfaces for cementing. I copiously pulsatile lavage irrigated out the femoral canal, using the canal brush, the cement restrictor sizer was placed, and we elected for a #4. It was placed measuring off the real prosthesis, making sure we were distal to the Cementralizer. We then placed three epinephrine sponges into the femoral canal. Then, my clinical education assistant mixed the cement on the back table, and continuous suction with a Dominique tip was placed into the femoral canal to keep it nice and dry. Then, we removed the epinephrine-soaked sponges, placed the dry sponges, then placed the cement down the femoral canal and then the stem; and then, we removed the excess cement. We held the stem stable until the cement hardened. Once it had completely hardened, we dried the trunnion of the stem off, placed the +0 sleeve, followed by the 46 ball, impacted in position. It was nice and stable. Then, we irrigated out the acetabulum and then reduced the hip again. We then began closing the gluteus medius and minimus back anatomically to the trochanter as best as possible, given there was chronic pull-off, but we were able to get it back together. We then closed the tensor fascia layer with a combination of #1 polydioxanone suture (PDS) suture distally and then a running #1 Stratafix. We irrigated between layers, closed the deep subdermal tissues with interrupted #2-0 PDS sutures. The, the skin was closed with jessica, covered by an Optifoam; and then she was turned supine and then transferred to the recovery room in stable condition. There were no intraoperative complications.
== END 2020-03-24 11:35 | DRG 469 ==
LOC: M ED 19:03 → M ED INP 20:53 → M MS5PR 22:31 → ENRESERV 22:52 → M MS5PR 03-17 07:22
PROVIDERS: ADMIT Internal Medicine; ATTEND Internal Medicine
PROC: 5A1D70Z Performance of Urinary Filtration, Intermittent, Less than 6 Hours Per Day (ICD-10-PCS; 2020-03-17)
PROC: 0SRR0J9 Replacement of Right Hip Joint, Femoral Surface with Synthetic Substitute, Cemented, Open Approach (ICD-10-PCS; principal; 2020-03-19 15:00)
DX: S72.011A Unspecified intracapsular fracture of right femur, initial encounter for closed fracture (principal); N18.6 End stage renal disease; I12.0 Hypertensive chronic kidney disease with stage 5 chronic kidney disease or end stage renal disease; I48.20 Chronic atrial fibrillation, unspecified; E87.1 Hypo-osmolality and hyponatremia; E78.5 Hyperlipidemia, unspecified; W18.09XA Striking against other object with subsequent fall, initial encounter; Y92.015 Private garage of single-family (private) house as the place of occurrence of the external cause; K21.9 Gastro-esophageal reflux disease without esophagitis; F32.9 Major depressive disorder, single episode, unspecified; K59.09 Other constipation; D63.1 Anemia in chronic kidney disease; M70.61 Trochanteric bursitis, right hip; M81.0 Age-related osteoporosis without current pathological fracture; G47.00 Insomnia, unspecified; Z99.2 Dependence on renal dialysis; Z79.01 Long term (current) use of anticoagulants; Z79.899 Other long term (current) drug therapy; Z88.2 Allergy status to sulfonamides; Y93.H9 Activity, other involving exterior property and land maintenance, building and construction; Z11.59 Encounter for screening for other viral diseases

== ENCOUNTER 2020-03-24 10:02 | Inpatient (IN) | payer MEDICARE, BC ==
[~2020-03-24] VITALS: Ht 166.4 cm; Wt 73.8 kg
[~2020-03-24 10:02] MED LIST changes: -COUM7.5T PO; +COUM7.5T6 PO; +PROP300T PO
[2020-03-24] MEDS ORDERED: PERCOCET PO (10:28)
[2020-03-24] MEDS ORDERED: MIRALAX *UNIT DOSE* 17GM PACKET PO PRN (12:00)
[2020-03-24] MEDS ORDERED: BISACODYL 10 MG SUPP PR PRN (12:00)
[2020-03-24] MEDS ORDERED: RAMELTEON 8 MG TAB (ROZEREM) PO PRN (12:00)
--- NOTE | 2020-03-24 12:42 | HPEPDOC ---
Final Inspector Note DATE OF ADMISSION: 03-24-20 DATE OF SERVICE: 03-24-20 TIME OF ADMISSION: Please refer to physician's admission order. SOURCE OF ADMISSION INFORMATION: [facility] record and patient CHIEF COMPLAINT:hip fracture HISTORY OF PRESENT ILLNESS: 69F pmh ESRD on HD, Afib on Coumadin, HTN, HLD, right ankle fracture s/p ORIF with hardware removal who fell at home without presyncopal symptoms or head trauma and presented to [facility] ED on 03-16-20 with difficulty walking. Hip X-ray revealed, Right femoral neck fracture in varus with slight impaction. Her Coumadin was held in anticipation of surgery and she underwent a right hip hemiarthroplasty on 03-19-20. She developed post-op anemia and leukocytosis and was started back on her Coumadin following surgery. She was evaluated by therapy and found to have impairment sin mobility and ADLs well below her prior level of function and deemed medically appropriate for discharge to ARU on 03-24-20. REVIEW OF SYSTEMS: The following is a completed review of systems and has been reviewed. Review of systems otherwise unremarkable. PAIN: Patient self reports right hip pain EYES: No recent vision changes EARS, NOSE, & THROAT: No throat pain, or dysphagia, or rhinorrhea CARDIOVASCULAR: Denies chest pain or palpitations PULMONARY: Denies shortness of breath GASTROINTESTINAL: +loose stools GENITOURINARY: denies dysuria MUSCULOSKELETAL: right hip fracture NEUROLOGICAL: no focal tremor or paresthesias HEMATOLOGICAL: +anemia SKIN: right hip incision PSYCHIATRIC: Unremarkable All other review of systems found to be negative. PAST MEDICAL HISTORY: as per HPI PAST SURGICAL HISTORY: as per [facility] ALLERGIES: Please see below. MEDICATIONS: Please see below. SOCIAL HISTORY: no etoh/ illicit drugs/smoking DIET: regular PHYSICAL EXAMINATION: VITAL SIGNS: Please see below. GENERAL: Pleasant and cooperative. No acute distress. HEENT: PERRL. Extraocular movements intact. Clear conjunctiva CARDIOVASCULAR: Regular rate and rhythm. No murmurs, rubs, or gallops LUNGS: Clear to auscultation bilaterally. No wheezes. No rhonchi ABDOMEN: Soft, nontender, nondistended. Positive bowel sounds. Normal active bowel sounds NEUROLOGICAL: Alert and oriented times three. Cranial nerves II through XII grossly intact. Sensation grossly intact] EXTREMITIES: 5\5 strength bilateral upper extremities. >3/5 right hip flexors and knee extension (limited due to surgery), 5/5 ankle DF/EHL and PF 5/5 strength in left lower extremity. SKIN: no sacral erythema, right hip incision with scant serous drainage, no hector incisional induration LABORATORY DATA: Please see below. IMAGING:Imaging documentation personally reviewed by record FUNCTIONAL STATUS: Premorbid: Independent with all activities of daily life as well as mobility On Admission: Min-Mod assist for functional transfers, bed mobility, contact guard for ambulation with RW x2 feet GOALS: Mod-I household distances for ambulation, functional transfers, bathing, dressing, toileting ASSESSMENT:69-year-old F with past medical history of AFib on Coumadin who presents status post fall with right hip fracture PLAN: 1. rehab- PT/OT advance agit and ADLs maintaining hip precautions, strengthen/st retch all 4 limbs 2. Ortho: s/p right hip fracture with hemiarthroplasty, orth consulted 3. CArdiac; hx of Afib on Coumadin, monitor INRs, c/u coreg and rythmol -medicine consulted to assist in overall management -no documented CHF, will monitor clinically 4. Resp: encourage incentive spirometry 5. Heme: post op anemia, will consider transfusion if Hgb <8 or if symptomatic 6. GI ppx: protonix 7. Renal: ESRD on HD, renal consulted to assist with HD and anemia 8. DVT ppx: on coumadin, teds 9. Pain:tylenol and oxycodone 10. Psych: Wellbutrin for depression and Rozerem prn for insomnia 11. DIspo: TBD POST ADMISSION PHYSICIAN EVALUATION: Medical and functional status: Description of medical status, medical assessment: As above. Rehabilitation diagnosis and current and prior cold morbid medical conditions as above. Risk of complications and plans to mitigate them as above. Description of functional status current status is as above. Prior status as above. Status compared to preadmission: There are no clinically significant differences between the patient's current status and the information described on the preadmission screening document. Treatment plan anticipated: Treatment plan is as described above. Required disciplines including physical therapy, occupational therapy, others as noted above. Intensity of services: 3 hours a day, 6 days a week. Special considerations: There are no specific special or safety considerations that would likely preclude immediate implementation of an intensive rehabilitation program or subsequently influence the plan of care. ATTESTATION: Considering all the information above, it is my best judgment that this patient requires intensive rehabilitation therapy as described above and an inpatient hospital environment due to the complexity of nursing, medical, and rehabilitation needs required by the patient. Furthermore, this patient can reasonably be expected to participate in an benefit from an inpatient rehabilitation stay with an interdisciplinary team approach to the delivery of rehabilitation care under the direction and supervision of rehabilitation physician. PROGNOSIS: good ESTIMATED LENGTH OF STAY: 14-18 days. PROJECTED DISCHARGE DESTINATION: Home with family support and any durable medical equipment required to increase functional safety and mobility. TIME SPENT COUNSELING AND COORDINATING INITIAL CARE: Greater than 70 minutes. Vital Signs Vital Signs Date Time Temp Pulse Resp B/P (MAP) Pulse Ox O2 Delivery O2 Flow Rate FiO2 03/24/20 13:46 97.5 75 18 118/79 (92) 98 Room Air Home Medications Scheduled Bupropion HCl (Bupropion Xl) 300 Mg Tab, 300 MG PO DAILY, (Reported) Carvedilol (Carvedilol) 6.25 Mg Tablet, 12.5 MG PO BID, (Reported) Docusate Sodium (Stool Softener) 100 Mg Cap, 100 MG PO DAILY, (Reported) Pantoprazole Sodium (Pantoprazole Sodium) 40 Mg Tablet.dr, 40 MG PO DAILY, (Reported) Propafenone HCl (Propafenone HCl) 300 Mg Tablet, 300 MG PO BID, (Reported) Raloxifene HCl (Raloxifene HCl) 60 Mg Tab, 60 MG PO QHS, (Reported) Warfarin Sodium (Warfarin Sodium) 5 Mg Tablet, 5 MG PO DAILY, (Reported) Scheduled PRN Fexofenadine HCl (Fexofenadine HCl) 180 Mg Tablet, 180 MG PO for prn, (Reported) Oxycodone/Acetaminophen (Oxycodone-Acetaminophen 5-325) 1 Each Tablet, 1 TAB PO Q8HP PRN for MODERATE PAIN Polyethylene Glycol 3350 (Miralax) 1 Pow Pow, 17 GM PO DAILY PRN for CONSTIPATION, (Reported) Allergies Coded Allergies: Sulfa (Sulfonamide Antibiotics) (Verified Adverse Reaction, Intermediate, upset stomach, 06/27/19) A-FIB/CHADSVASC A-FIB History Current/History of A-Fib/PAF?: Yes Current PO Anticoag Therapy: Yes LINA CASTILLO MD March 24, 2020 12:42
[2020-03-24 13:46] VITALS: BP 118/79
[2020-03-24] MEDS: REMEDY PHYTOPLEX Z-GUARD PASTE 113GM TUBE (FROM STOREROOM PRODUCT) TOP SCH ×2 (16:00→21:00)
[2020-03-24] MEDS: WARFARIN SOD 5MG TAB PO SCH (17:02)
[2020-03-24] MEDS: ACETAMINOPHEN 500 MG TAB PO SCH ×2 (17:02→21:47)
[2020-03-24 20:00] VITALS: BP 116/55
[2020-03-24] MEDS: DOCUSATE SODIUM 100 MG CAP PO SCH (21:00)
[2020-03-24] MEDS: SENNA 8.6 MG TAB (SENOKOT) PO SCH (21:00)
[2020-03-24] MEDS: PROPAFENONE 150 MG TAB PO SCH (21:46)
[2020-03-24] MEDS: CARVedilol 12.5 MG TAB PO SCH (21:47)
--- NOTE | 2020-03-24 23:26 | IPN ---
DATE: 03/24/2020 SUBJECTIVE: The patient was seen and examined at the bedside today morning during hemodialysis procedure. She is tolerating the hemodialysis procedure well. She denies any active complaints. OBJECTIVE: Vital signs: Temperature is 98.2 degrees Fahrenheit, blood pressure 123/57, pulse is 80, respiratory rate of 16, saturating 97% on room air. Intake and output: Urine output recorded at 300 mL. Weight in the bed scale is not available. PHYSICAL EXAMINATION: General: The patient is awake, alert, oriented times three, laying in bed, in no apparent distress. Head and Neck Exam: Extraocular muscles intact. Pupils equally round and reactive to light. Mucous membranes are moist. Neck is supple. There is no jugular venous distention (JVD). Cardiovascular: S1, S2, regular rate. No edema of the bilateral lower extremities. Respiratory: Chest is clear to auscultation bilaterally. Bilateral equal air entry. No rales or rhonchi. Abdomen: Soft. Positive bowel sounds, nontender, no organomegaly. Musculoskeletal: No clubbing or cyanosis. Pulses are 2+. 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 Power is 5/5 in all extremities. LAB REVIEW: CBC showed a WBC of 7.6, hemoglobin is 9, platelets [id number]. BMP showed sodium 135, potassium 3.3, chloride 100, bicarbonate 25, BUN 42, creatinine is 4.8, albumin is 1.8. CURRENT INPATIENT MEDICATIONS: The patient's medications were all reviewed by myself. There is no significant change in the medications today as compared with yesterday. She was given a dose of potassium chloride 40 mEq by mouth times one dose in the morning. ASSESSMENT/PLAN: 1. End-stage renal disease. The patient is being dialyzed today according to Monday, , Monday schedule. Ultrafiltration goal will be only 500 mL as tolerated by her blood pressure. 2. Anemia in end-stage renal disease. The patient is on Venofer and Aranesp. Hemoglobin level is slowly improving. 3. Hypertension with end-stage renal disease. Continue current dose of carvedilol. Volume status is optimized. 4. Atrial fibrillation. Heart rate is controlled with Coreg and propafenone and she is anticoagulated with Coumadin. 5. Hypokalemia. The patient was given a dose of potassium chloride in the morning, and she is being dialyzed with a 4K bath; potassium level is expected to improve after that.
[2020-03-25 06:00] VITALS: BP 116/58
[2020-03-25] MEDS: oxyCODONE 5MG TAB PO PRN ×4 (06:31→20:40)
[2020-03-25 06:50] LABS: BASO # 0.1 10^3/uL (0.0-0.2); EOS # 0.1 10^3/uL (0.0-0.5); EOS % 2.1 % (0.0-3.0); HEMATOCRIT 25.8 % (36.0-47.0); HEMOGLOBIN 8.2 g/dl (12.0-15.5); LYMPH # 1.2 10^3/uL (1.5-5.0); LYMPH % 17.8 % (24.0-44.0); MEAN CORPUSCULAR HEMOGLOBIN 32.3 pg (27.0-33.0); MEAN CORPUSCULAR HGB CONC 31.8 g/dl (32.0-36.5); MEAN CORPUSCULAR VOLUME 101.6 fl (80.0-96.0); MONO # 0.9 10^3/uL (0.0-0.8); MONO % 13.9 % (0.0-5.0); NEUTROPHILS # 4.3 10^3/uL (1.5-8.5); NEUTROPHILS % 64.5 % (36.0-66.0); PLATELET COUNT, AUTOMATED 370 10^3/uL (150-450); RED BLOOD COUNT 2.54 10^6/uL (4.00-5.40); WHITE BLOOD COUNT 6.7 10^3/uL (4.0-10.0)
[2020-03-25 07:11] LABS: ALBUMIN 1.9 GM/DL (3.2-5.2); ALT/SGPT < 6 U/L (12-78); BILIRUBIN,TOTAL 0.3 MG/DL (0.2-1.0); BLOOD UREA NITROGEN 21 MG/DL (7-18); CALCIUM LEVEL 8.9 MG/DL (8.8-10.2); CARBON DIOXIDE LEVEL 29 MEQ/L (21-32); CHLORIDE LEVEL 101 MEQ/L (98-107); CREATININE FOR GFR 2.91 MG/DL (0.55-1.30); GLOMERULAR FILTRATION RATE 17.1 (>45); GLUCOSE, FASTING 75 MG/DL (70-100); POTASSIUM SERUM 3.9 MEQ/L (3.5-5.1); SODIUM LEVEL 135 MEQ/L (136-145)
[2020-03-25] MEDS: buPROPion **XL** TABLET 150MG (WELLBUTRIN XL) PO SCH (08:33)
[2020-03-25] MEDS: PROPAFENONE 150 MG TAB PO SCH ×2 (08:33→20:36)
[2020-03-25] MEDS: DOCUSATE SODIUM 100 MG CAP PO SCH ×2 (08:33→20:35)
[2020-03-25] MEDS: ACETAMINOPHEN 500 MG TAB PO SCH ×3 (08:33→20:36)
[2020-03-25] MEDS: CARVedilol 12.5 MG TAB PO SCH ×2 (08:33→20:36)
[2020-03-25] MEDS: PANTOPRAZOLE 40MG TAB (PROTONIX) PO SCH (08:34)
[2020-03-25] MEDS: REMEDY PHYTOPLEX Z-GUARD PASTE 113GM TUBE (FROM STOREROOM PRODUCT) TOP SCH ×3 (08:34→20:36)
[2020-03-25] MEDS ORDERED: DARBEPOETIN 200MCG/0.4ML *DIALYSIS* SYRINGE (J0882 PER 1MCG) IV SCH (10:30)
[2020-03-25] MEDS ORDERED: IRON SUCROSE 100MG 5ML VIAL (J1756 PER 1MG) IV SCH (10:30)
[2020-03-25 14:00] VITALS: BP 129/59
[2020-03-25 16:42] LABS: INR 2.3; PROTHROMBIN TIME 25.1 SECONDS (11.8-14.0)
[2020-03-25] MEDS: WARFARIN SOD 5MG TAB PO SCH (16:48)
--- NOTE | 2020-03-25 17:17 | IPNPDOC ---
Date Seen The patient was seen on 03/25/20. Progress Note SUBJECTIVE: 69-year-old female with past medical history of end-stage renal disease on hemodialysis, hypertension, atrial fibrillation (on Coumadin), GERD and anemia is admitted to acute rehabilitation unit for physical therapy. Patient was recently admitted to [facility] for hip fracture, underwent surgical intervention, now transferred to acute rehabilitation unit. Patient resting comfortably in bed, without any complaints at rest, worked with physical therapy today and reports significant right hip pain, no other complaints. She denies any shortness of breath, chest pain, nausea, vomiting, diarrhea or constipation. 10 point review of system is negative except for above PHYSICAL EXAMINATION: VITAL SIGNS: Please see below. GENERAL: No distress HEENT: Normocephalic, atraumatic, moist mucous membranes NECK: Supple CARDIOVASCULAR EXAMINATION: S1, S2, no murmurs RESPIRATORY EXAMINATION: Clear to auscultation, no wheezing ABDOMINAL EXAMINATION: Soft, nontender, nondistended, positive bowel sounds EXTREMITIES: Range of motion limited due to pain SKIN: No rash NEUROLOGICAL EXAMINATION: Alert and oriented 3, no focal deficits PSYCHIATRIC EXAMINATION: Calm and cooperative LABORATORY DATA, IMAGING STUDIES, MICROBIOLOGY: Please see below. ASSESSMENT AND PLAN: 69-year-old female with multiple medical comorbidities, was admitted to [facility] for right hip fracture, now admitted to acute rehabilitation unit for therapy. PROBLEMS: 1. End-stage renal disease: Hemodialysis as per nephrology, continue chronic meds. 2. Anemia: Secondary to end-stage renal disease, on IV iron and Aranesp. 3. GERD: Continue Protonix. 4. Atrial fibrillation: Continue Coumadin and Coreg, INR pending 5. Physical deconditioning: Therapy as per primary team DVT prophylaxis: On Coumadin. GI prophylaxis: PPI VS, I&O, 24H, Moses Vital Signs/I&O Vital Signs Date Time Temp Pulse Resp B/P (MAP) Pulse Ox O2 Delivery O2 Flow Rate FiO2 03/25/20 15:25 16 03/25/20 14:00 97.0 72 129/59 (82) 97 Room Air I&O- Last 24 Hours up to 6 AM 03/25/20 06:00 Intake Total 810 ml Output Total 500 ml Balance 310 ml Laboratory Data 24H LABS Laboratory Tests 2 03/25/20 05:44: Immature Granulocyte % (Auto) 0.7, Neutrophils (%) (Auto) 64.5, Lymphocytes (%) (Auto) 17.8L, Monocytes (%) (Auto) 13.9H, Eosinophils (%) (Auto) 2.1, Basophils (%) (Auto) 1.0, Neutrophils # (Auto) 4.3, Lymphocytes # (Auto) 1.2L, Monocytes # (Auto) 0.9H, Eosinophils # (Auto) 0.1, Basophils # (Auto) 0.1, Nucleated Red Blood Cells % (auto) 0.0, Anion Gap 5L, Glomerular Filtration Rate 17.1L, Calcium Level 8.9, Total Bilirubin 0.3, Aspartate Amino Transf (AST/SGOT) 16, Alanine Aminotransferase (ALT/SGPT) < 6L, Alkaline Phosphatase 55, Total Protein 6.0L, Albumin 1.9L, Albumin/Globulin Ratio 0.5L 03/25/20 16:01: Prothrombin Time 25.1H, Prothromb Time International Ratio 2.30 CBC/BMP Laboratory Tests 03/25/20 05:44 NAHID CHERRY MD March 25, 2020 17:16
[2020-03-25 19:56] VITALS: BP 120/58
[2020-03-25] MEDS: SENNA 8.6 MG TAB (SENOKOT) PO SCH (20:35)
[2020-03-26] MEDS: oxyCODONE 5MG TAB PO PRN ×4 (05:50→21:20)
[2020-03-26 06:00] VITALS: BP 124/55
--- NOTE | 2020-03-26 06:35 | IPN ---
DATE OF SERVICE: 03/25/2020 SUBJECTIVE: The patient was seen and examined at the bedside today morning in the rehab unit. She was recently transferred to rehab. She was dialyzed yesterday. She tolerated the hemodialysis dialysis procedure well. She denies any active complaints at this time apart from pain in the right hip surgical site. OBJECTIVE: Vital Signs: Temperature is 97 degrees Fahrenheit, blood pressure 116/58, pulse is 68, respiratory rate 18, and saturating 99% on room air. Intake and output: Urine output recorded as 300 mL. Ultrafiltration with hemodialysis was 500 mL yesterday. Weight in the bed scale is 73.3 kg. PHYSICAL EXAMINATION: General: The patient is awake, alert, oriented x3, sitting up in the sofa, in no apparent distress. Head and Neck Exam: Extraocular muscles intact. Pupils equally round and reactive to light. Mucous membranes are moist. Neck is supple. There is no jugular vein distention (JVD). Cardiovascular: S1, S2. Regular rate. No edema of the bilateral lower extremities. Respiratory: Chest is clear to auscultation bilaterally. Bilateral equal air entry. No rales or rhonchi. Abdomen: Soft. Positive bowel sounds. Nontender. No organomegaly. Musculoskeletal: Slightly decreased range of movement of the right hip because of pain. 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 Power is 5/5 in bilateral upper extremities: LAB REVIEW: CBC showed a WBC of 6.7, hemoglobin 8.2 and platelets are 370. BMP showed sodium 135, potassium 3.9, chloride 101, bicarb 29, BUN 21, creatinine 2.9, and albumin 1.9. CURRENT INPATIENT MEDICATIONS: The patient's medications were all reviewed by myself. I have restarted the patient's Aranesp and Venofer to be given with dialysis. No other significant change in the medications today as compared with yesterday. ASSESSMENT/PLAN: 1. End-stage renal disease. The patient is dialysis dependent. She was dialyzed yesterday. Next hemodialysis will be tomorrow morning as per her Monday, , Monday schedule. 2. Anemia and end-stage renal disease. The patient's hemoglobin is suboptimal. She is getting Venofer and Aranesp with dialysis. If hemoglobin drops below 8, then she will be given packed red blood cell (PRBC) transfusion. 3. Atrial fibrillation. Continue current dose of Coreg, propafenone and Coumadin. There is no sign of active bleeding at the surgical site. 4. Right hip fracture status post right hip hemiarthroplasty. The patient is getting physical therapy at rehabilitation. Pain is optimized with oxycodone and cold compresses.
[2020-03-26 06:54] LABS: BASO # 0.1 10^3/uL (0.0-0.2); EOS # 0.2 10^3/uL (0.0-0.5); EOS % 2.1 % (0.0-3.0); HEMATOCRIT 26.2 % (36.0-47.0); HEMOGLOBIN 8.6 g/dl (12.0-15.5); LYMPH # 0.9 10^3/uL (1.5-5.0); LYMPH % 12.3 % (24.0-44.0); MEAN CORPUSCULAR HEMOGLOBIN 33.5 pg (27.0-33.0); MEAN CORPUSCULAR HGB CONC 32.8 g/dl (32.0-36.5); MEAN CORPUSCULAR VOLUME 101.9 fl (80.0-96.0); MONO # 0.9 10^3/uL (0.0-0.8); MONO % 13.2 % (0.0-5.0); NEUTROPHILS % 70.7 % (36.0-66.0); PLATELET COUNT, AUTOMATED 414 10^3/uL (150-450); RED BLOOD COUNT 2.57 10^6/uL (4.00-5.40); WHITE BLOOD COUNT 7.1 10^3/uL (4.0-10.0)
[2020-03-26 06:59] LABS: INR 2.26; PROTHROMBIN TIME 24.8 SECONDS (11.8-14.0)
[2020-03-26] MEDS: ACETAMINOPHEN 500 MG TAB PO SCH ×3 (07:57→21:18)
[2020-03-26] MEDS: CARVedilol 12.5 MG TAB PO SCH ×2 (07:58→21:17)
[2020-03-26] MEDS: DOCUSATE SODIUM 100 MG CAP PO SCH ×3 (07:58→21:00)
[2020-03-26] MEDS: PROPAFENONE 150 MG TAB PO SCH ×2 (07:58→21:19)
[2020-03-26] MEDS: PANTOPRAZOLE 40MG TAB (PROTONIX) PO SCH (07:58)
[2020-03-26] MEDS: REMEDY PHYTOPLEX Z-GUARD PASTE 113GM TUBE (FROM STOREROOM PRODUCT) TOP SCH ×3 (07:58→21:00)
[2020-03-26] MEDS: buPROPion **XL** TABLET 150MG (WELLBUTRIN XL) PO SCH (07:58)
--- NOTE | 2020-03-26 11:18 | IPNPDOC ---
PM&R Progress Note DATE OF SERVICE: March 26, 2020 Food Service Director Progress Note Subjective: Patient reporting she has difficulty lying down for dialysis due to hip pain and was encouraged to take pain pill an hour prior. REVIEW OF SYSTEMS: The following is a completed review of systems and has been reviewed. Review of systems otherwise unremarkable. PAIN: Patient self reports right hip pain EYES: No recent vision changes EARS, NOSE, & THROAT: No throat pain, or dysphagia, or rhinorrhea CARDIOVASCULAR: Denies chest pain or palpitations PULMONARY: Denies shortness of breath GASTROINTESTINAL: +loose stools (improved) GENITOURINARY: denies dysuria MUSCULOSKELETAL: right hip fracture NEUROLOGICAL: no focal tremor or paresthesias HEMATOLOGICAL: +anemia SKIN: right hip incision PSYCHIATRIC: Unremarkable All other review of systems found to be negative. PHYSICAL EXAMINATION: VITAL SIGNS: Please see below. GENERAL: Pleasant and cooperative. No acute distress. HEENT: PERRL. Extraocular movements intact. Clear conjunctiva CARDIOVASCULAR: Regular rate and rhythm. No murmurs, rubs, or gallops LUNGS: Clear to auscultation bilaterally. No wheezes. No rhonchi ABDOMEN: Soft, nontender, nondistended. Positive bowel sounds. Normal active bowel sounds NEUROLOGICAL: Alert and oriented times three. Cranial nerves II through XII grossly intact. Sensation grossly intact] EXTREMITIES: 5\5 strength bilateral upper extremities. >3/5 right hip flexors and knee extension (limited due to surgery), 5/5 ankle DF/EHL and PF 5/5 strength in left lower extremity. SKIN: no sacral erythema, right hip incision with scant serous drainage, no hector incisional induration ASSESSMENT:69-year-old F with past medical history of AFib on Coumadin who pres ents status post fall with right hip fracture PLAN: 1. rehab- PT/OT advance agit and ADLs maintaining hip precautions, strengthen/stretch all 4 limbs 2. Ortho: s/p right hip fracture with hemiarthroplasty, ortho consulted 3. CArdiac; hx of Afib on Coumadin, monitor INRs, c/u coreg and rythmol -medicine consulted to assist in overall management -no documented CHF, will monitor clinically 4. Resp: encourage incentive spirometry 5. Heme: post op anemia, will consider transfusion if Hgb <8 or if symptomatic, Hgb up from 8.2-->8.6 6. GI ppx: protonix 7. Renal: ESRD on HD, renal consulted to assist with HD and anemia 8. DVT ppx: on coumadin, teds 9. Pain:tylenol and oxycodone 10. Psych: Wellbutrin for depression and Rozerem prn for insomnia 11. DIspo: TBD Allergies Coded Allergies: Sulfa (Sulfonamide Antibiotics) (Verified Adverse Reaction, Intermediate, upset stomach, 06/27/19) Vital Signs Vital Signs Date Time Temp Pulse Resp B/P (MAP) Pulse Ox O2 Delivery O2 Flow Rate FiO2 03/26/20 07:58 97 144/62 03/26/20 06:25 18 03/26/20 06:00 98.3 100 Room Air Laboratory Data CBC/BMP Laboratory Tests 03/26/20 06:29 Labs 24H Laboratory Tests 2 03/25/20 16:01: Prothrombin Time 25.1H, Prothromb Time International Ratio 2.30 03/26/20 06:29: Prothrombin Time 24.8H, Prothromb Time International Ratio 2.26, Immature Granulocyte % (Auto) 0.7, Neutrophils (%) (Auto) 70.7H, Lymphocytes (%) (Auto) 12.3L, Monocytes (%) (Auto) 13.2H, Eosinophils (%) (Auto) 2.1, Basophils (%) (Auto) 1.0, Neutrophils # (Auto) 5.0, Lymphocytes # (Auto) 0.9L, Monocytes # (Auto) 0.9H, Eosinophils # (Auto) 0.2, Basophils # (Auto) 0.1, Nucleated Red Blood Cells % (auto) 0.0 Current Medications Current Medications Current Medications Medications (Trade) Dose Ordered Sig/Eileen Route PRN Reason Start Time Stop Time Status Last Admin Dose Admin Acetaminophen (Tylenol Tab) 1,000 mg TID PO 03/24/20 16:00 03/26/20 07:57 Bisacodyl (Dulcolax Suppository) 10 mg DAILYPRN PRN CO CONSTIPATION 03/24/20 12:00 Bupropion HCl (Wellbutrin Xl) 300 mg DAILY PO 03/25/20 09:00 03/26/20 07:58 Carvedilol (COReg) 12.5 mg BID PO 03/24/20 21:00 03/26/20 07:58 Darbepoetin Raul (Aranesp (Dialysis Use)) 200 mcg HD IV 03/25/20 10:30 Docusate Sodium (Colace) 100 mg BID PO 03/24/20 21:00 Home Med (Med Rec Complete!) ASDIRECTED XX 03/24/20 16:30 03/24/20 16:26 DC Iron (Venofer) 100 mg HD IV 03/25/20 10:30 03/29/20 10:31 Oxycodone HCl (Roxicodone, Oxyir) 5 mg Q4HP PRN PO PAIN 03/24/20 12:00 03/26/20 05:50 Oxycodone HCl (Roxicodone, Oxyir) 10 mg Q4HP PRN PO SEVERE PAIN (PS 8-10) 03/24/20 12:00 03/25/20 20:40 Pantoprazole Sodium (Protonix) 40 mg DAILY PO 03/25/20 09:00 03/26/20 07:58 Polyethylene Glycol (Miralax) 1 pkt DAILY PRN PO CONSTIPATION 03/24/20 12:00 Propafenone HCl (Rythmol) 300 mg BID PO 03/24/20 21:00 03/26/20 07:58 Ramelteon (Rozerem) 8 mg QHS PRN PO INSOMNIA 03/24/20 12:00 03/24/20 23:03 Senna (Senokot) 1 tab QHS PO 03/24/20 21:00 Warfarin Sodium (Coumadin) 5 mg DAILY@1700 PO 03/24/20 17:00 03/25/20 16:48 LINA CASTILLO MD March 26, 2020 11:18
[2020-03-26] MEDS ORDERED: LIDOCAINE 1% SDV 5ML VIAL SQ ONE (12:45)
[2020-03-26] MEDS: WARFARIN SOD 5MG TAB PO SCH (17:20)
[2020-03-26 17:25] VITALS: BP 145/67
[2020-03-26] MEDS: SENNA 8.6 MG TAB (SENOKOT) PO SCH (21:00)
[2020-03-26 21:32] VITALS: BP 147/62
[2020-03-27] MEDS: oxyCODONE 5MG TAB PO PRN ×4 (01:42→23:51)
[2020-03-27 05:55] VITALS: BP 155/69
[2020-03-27 07:05] LABS: INR 2.48; PROTHROMBIN TIME 26.7 SECONDS (11.8-14.0)
[2020-03-27] MEDS: DOCUSATE SODIUM 100 MG CAP PO SCH ×3 (09:00→20:12)
[2020-03-27] MEDS: REMEDY PHYTOPLEX Z-GUARD PASTE 113GM TUBE (FROM STOREROOM PRODUCT) TOP SCH ×3 (09:00→20:12)
[2020-03-27] MEDS: PROPAFENONE 150 MG TAB PO SCH ×2 (09:05→20:11)
[2020-03-27] MEDS: ACETAMINOPHEN 500 MG TAB PO SCH ×3 (09:05→20:11)
[2020-03-27] MEDS: PANTOPRAZOLE 40MG TAB (PROTONIX) PO SCH (09:06)
[2020-03-27] MEDS: CARVedilol 12.5 MG TAB PO SCH ×2 (09:06→20:11)
[2020-03-27] MEDS: buPROPion **XL** TABLET 150MG (WELLBUTRIN XL) PO SCH (09:06)
[2020-03-27 14:00] VITALS: BP 123/53
--- NOTE | 2020-03-27 14:20 | IPNPDOC ---
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 She reports she is good spirits and does not feel too fatigued. REVIEW OF SYSTEMS: The following is a completed review of systems and has been reviewed. Review of systems otherwise unremarkable. PAIN: Patient self reports right hip pain EYES: No recent vision changes EARS, NOSE, & THROAT: No throat pain, or dysphagia, or rhinorrhea CARDIOVASCULAR: Denies chest pain or palpitations PULMONARY: Denies shortness of breath GASTROINTESTINAL: +loose stools (improved) GENITOURINARY: denies dysuria MUSCULOSKELETAL: right hip fracture NEUROLOGICAL: no focal tremor or paresthesias HEMATOLOGICAL: +anemia SKIN: right hip incision PSYCHIATRIC: Unremarkable All other review of systems found to be negative. PHYSICAL EXAMINATION: VITAL SIGNS: Please see below. GENERAL: Pleasant and cooperative. No acute distress. HEENT: PERRL. Extraocular movements intact. Clear conjunctiva CARDIOVASCULAR: Regular rate and rhythm. No murmurs, rubs, or gallops LUNGS: Clear to auscultation bilaterally. No wheezes. No rhonchi ABDOMEN: Soft, nontender, nondistended. Positive bowel sounds. Normal active bowel sounds NEUROLOGICAL: Alert and oriented times three. Cranial nerves II through XII grossly intact. Sensation grossly intact] EXTREMITIES: 5\5 strength bilateral upper extremities. >3/5 right hip flexors an d knee extension (limited due to surgery), 5/5 ankle DF/EHL and PF 5/5 strength in left lower extremity. SKIN: no sacral erythema, right hip incision with scant serous drainage, no hector incisional induration ASSESSMENT:69-year-old F with past medical history of AFib on Coumadin who presents status post fall with right hip fracture PLAN: 1. rehab- PT/OT advance agit and ADLs maintaining hip precautions, strengthen/stretch all 4 limbs, ambulating with RW 2. Ortho: s/p right hip fracture with hemiarthroplasty, ortho consulted 3. CArdiac; hx of Afib on Coumadin, monitor INRs, c/u coreg and rythmol -medicine consulted to assist in overall management -no documented CHF, will monitor clinically 4. Resp: encourage incentive spirometry 5. Heme: post op anemia, will consider transfusion if Hgb <8 or if symptomatic, Hgb up from 8.2-->8.6 6. GI ppx: protonix 7. Renal: ESRD on HD, renal consulted to assist with HD and anemia 8. DVT ppx: on coumadin, teds 9. Pain:tylenol and oxycodone 10. Psych: Wellbutrin for depression and Rozerem prn for insomnia 11. DIspo: likely to home next week, progressing towards goals Allergies Coded Allergies: Sulfa (Sulfonamide Antibiotics) (Verified Adverse Reaction, Intermediate, upset stomach, 06/27/19) Vital Signs Vital Signs Date Time Temp Pulse Resp B/P (MAP) Pulse Ox O2 Delivery O2 Flow Rate FiO2 03/27/20 12:53 18 Room Air 03/27/20 09:06 71 155/69 03/27/20 05:55 97.4 94 Laboratory Data Labs 24H Laboratory Tests 2 03/27/20 06:09: Prothrombin Time 26.7H, Prothromb Time International Ratio 2.48 Current Medications Current Medications Current Medications Medications (Trade) Dose Ordered Sig/Eileen Route PRN Reason Start Time Stop Time Status Last Admin Dose Admin Acetaminophen (Tylenol Tab) 1,000 mg TID PO 03/24/20 16:00 03/27/20 09:05 Bisacodyl (Dulcolax Suppository) 10 mg DAILYPRN PRN [place] CONSTIPATION 03/24/20 12:00 Bupropion HCl (Wellbutrin Xl) 300 mg DAILY PO 03/25/20 09:00 03/27/20 09:06 Carvedilol (COReg) 12.5 mg BID PO 03/24/20 21:00 03/27/20 09:06 Darbepoetin Raul (Aranesp (Dialysis Use)) 200 mcg HD IV 03/25/20 10:30 Docusate Sodium (Colace) 100 mg BID PO 03/24/20 21:00 Home Med (Med Rec Complete!) ASDIRECTED XX 03/24/20 16:30 03/24/20 16:26 DC Iron (Venofer) 100 mg HD IV 03/25/20 10:30 03/29/20 10:31 Oxycodone HCl (Roxicodone, Oxyir) 5 mg Q4HP PRN PO PAIN 03/24/20 12:00 03/27/20 06:43 Oxycodone HCl (Roxicodone, Oxyir) 10 mg Q4HP PRN PO SEVERE PAIN (PS 8-10) 03/24/20 12:00 03/27/20 12:23 Pantoprazole Sodium (Protonix) 40 mg DAILY PO 03/25/20 09:00 03/27/20 09:06 Polyethylene Glycol (Miralax) 1 pkt DAILY PRN PO CONSTIPATION 03/24/20 12:00 Propafenone HCl (Rythmol) 300 mg BID PO 03/24/20 21:00 03/27/20 09:05 Ramelteon (Rozerem) 8 mg QHS PRN PO INSOMNIA 03/24/20 12:00 03/24/20 23:03 Senna (Senokot) 1 tab QHS PO 03/24/20 21:00 Warfarin Sodium (Coumadin) 5 mg DAILY@1700 PO 03/24/20 17:00 03/26/20 17:20 LINA CASTILLO MD March 27, 2020 14:20
[2020-03-27] MEDS: WARFARIN SOD 5MG TAB PO SCH (16:10)
[2020-03-27] MEDS: SENNA 8.6 MG TAB (SENOKOT) PO SCH (20:12)
--- NOTE | 2020-03-27 21:22 | IPN ---
DATE: 03/26/2020 SUBJECTIVE: The patient was seen and examined at the bedside today morning. She is afebrile, hemodynamically stable. She denies any active complaints. She still reports a mild amount of pain in the right hip. Today is patient's regular day of dialysis. OBJECTIVE: Vital signs: Temperature is 98.3 degrees Fahrenheit, blood pressure 144/62, pulse is 97, respiratory rate of 18, saturating 100% on room air. Intake and output: There is no urine output recorded, weight in the bed scale was 73.3 kg yesterday. PHYSICAL EXAMINATION: GENERAL: The patient is awake, alert, oriented times three, sitting up in the sofa, no apparent distress. HEAD AND NECK EXAM: Extraocular muscles intact. Pupils equally round and reactive to light. Mucous membranes are moist. Neck is supple. There is no JVD. CARDIOVASCULAR: S1, S2, regular rate. No edema of the bilateral lower extremities. RESPIRATORY: Chest is clear to auscultation bilaterally, bilateral equal air entry, no rales or rhonchi. ABDOMEN: Soft, positive bowel sounds, nontender, no organomegaly. MUSCULOSKELETAL: She has a surgical scar on the right hip, slightly decreased range of movement of the right hip because of pain. Otherwise no clubbing or cyanosis. PALM GATHERER: No focal deficit, power is 5/5 in bilateral upper extremities. LABORATORY DATA: CBC showed a WBC 7.1, hemoglobin 8.6, platelets are 414. BMP done yesterday showed sodium 135, potassium 3.9. CURRENT INPATIENT MEDICATIONS: The patient's medications were all reviewed by myself. The patient was restarted on Aranesp and Venofer to be given during dialysis. No other significant change in the medications today as compared with yesterday. ASSESSMENT/PLAN: 1. End-stage renal disease. Today is the patient's regular day of dialysis. She will be dialyzed in the afternoon, ultrafiltration goal will be around 1 liter. 2. Anemia in end-stage renal disease. Hemoglobin level is still suboptimal. She is going to get Venofer and Aranesp with dialysis. Hemoglobin level is slowly improving. 3. Atrial fibrillation. Heart rate is controlled with Coreg and propafenone. Continue Coumadin. 4. Right hip fracture status post right hip hemiarthroplasty. She is getting physical therapy currently in the rehab.
[2020-03-27 22:00] VITALS: BP 148/68
[2020-03-28 06:00] VITALS: BP 157/69
[2020-03-28] MEDS: DOCUSATE SODIUM 100 MG CAP PO SCH ×2 (07:42→20:59)
[2020-03-28] MEDS: PANTOPRAZOLE 40MG TAB (PROTONIX) PO SCH (07:43)
[2020-03-28] MEDS: buPROPion **XL** TABLET 150MG (WELLBUTRIN XL) PO SCH (07:43)
[2020-03-28] MEDS: ACETAMINOPHEN 500 MG TAB PO SCH ×3 (07:43→20:59)
[2020-03-28] MEDS: PROPAFENONE 150 MG TAB PO SCH ×2 (07:44→21:00)
[2020-03-28] MEDS: CARVedilol 12.5 MG TAB PO SCH ×2 (07:44→21:00)
[2020-03-28] MEDS: oxyCODONE 5MG TAB PO PRN (07:54)
[2020-03-28] MEDS: REMEDY PHYTOPLEX Z-GUARD PASTE 113GM TUBE (FROM STOREROOM PRODUCT) TOP SCH ×3 (07:56→21:00)
[2020-03-28 08:57] LABS: BASO # 0.1 10^3/uL (0.0-0.2); BASO % 0.7 % (0.0-1.0); EOS # 0.1 10^3/uL (0.0-0.5); HEMATOCRIT 25.2 % (36.0-47.0); HEMOGLOBIN 7.9 g/dl (12.0-15.5); LYMPH # 0.7 10^3/uL (1.5-5.0); LYMPH % 8.9 % (24.0-44.0); MEAN CORPUSCULAR HEMOGLOBIN 32.1 pg (27.0-33.0); MEAN CORPUSCULAR HGB CONC 31.3 g/dl (32.0-36.5); MEAN CORPUSCULAR VOLUME 102.4 fl (80.0-96.0); MONO # 0.7 10^3/uL (0.0-0.8); MONO % 8.6 % (0.0-5.0); NEUTROPHILS # 6.6 10^3/uL (1.5-8.5); NEUTROPHILS % 80.1 % (36.0-66.0); PLATELET COUNT, AUTOMATED 437 10^3/uL (150-450); RED BLOOD COUNT 2.46 10^6/uL (4.00-5.40); WHITE BLOOD COUNT 8.3 10^3/uL (4.0-10.0)
[2020-03-28 09:22] LABS: INR 2.87
[2020-03-28 09:24] LABS: CALCIUM LEVEL 9.1 MG/DL (8.8-10.2); CREATININE FOR GFR 3.72 MG/DL (0.55-1.30); GLOMERULAR FILTRATION RATE 12.9 (>45); PHOSPHORUS LEVEL 3.3 MG/DL (2.5-4.9); POTASSIUM SERUM 4.3 MEQ/L (3.5-5.1)
[2020-03-28 14:00] VITALS: BP 128/60
[2020-03-28] MEDS ORDERED: ONDANSETRON 4 MG ORAL DISINTEGRATING TAB PO PRN (14:45)
--- NOTE | 2020-03-28 14:45 | IPN ---
DATE: 03/27/2020 SUBJECTIVE: The patient was seen and examined at the bedside today morning. She was dialyzed yesterday. She tolerated the hemodialysis procedure well, and 1 liter of fluid was removed. The patient reports that right hip pain is getting better now. It only hurts when she does the physical therapy. OBJECTIVE: Vital signs: Temperature is 97.4 degrees Fahrenheit, blood pressure 155/69, pulse is 71, respiratory rate of 18, saturating 94% on room air. Intake and output: There is no urine output recorded. Ultrafiltration with the hemodialysis was 1 liter. Weight in the bed scale is 72.7 kg. PHYSICAL EXAMINATION: GENERAL: The patient is awake, alert, oriented times three, sitting up in the sofa in no apparent distress. HEAD AND NECK: Extraocular muscles intact. Pupils equally round and reactive to light. Mucous membranes are moist. Neck is supple. There is no jugular venous distention (JVD). CARDIOVASCULAR: S1, S2, regular rate. No edema of the bilateral lower extremities. RESPIRATORY: Chest is clear to auscultation bilaterally. Bilateral equal air entry. No rales or rhonchi. ABDOMEN: Soft. Positive bowel sounds. Nontender. No organomegaly. MUSCULOSKELETAL: No clubbing or cyanosis. Pulses are 2+. CENTRAL NERVOUS SYSTEM: No focal deficit. Power is 5/5 in all extremities. LABORATORY REVIEW: The patient had a CBC and BMP done before dialysis. There are no new labs available. CURRENT INPATIENT MEDICATIONS: The patient's medications were all reviewed by myself. There is no change in the medications today as compared with yesterday. ASSESSMENT AND PLAN: 1. End-stage renal disease. The patient was dialyzed yesterday. Her regular dialysis days are Monday, , Monday. Next dialysis will be tomorrow. 2. Anemia and end-stage renal disease. Continue Venofer and Aranesp with dialysis. CBC will be checked before dialysis tomorrow morning. 3. Atrial fibrillation. Heart rate is controlled with propafenone and Coreg. Continue Coumadin.
[2020-03-28] MEDS: WARFARIN SOD 5MG TAB PO SCH (16:22)
[2020-03-28 20:00] VITALS: BP 156/67
[2020-03-28] MEDS: SENNA 8.6 MG TAB (SENOKOT) PO SCH (20:59)
[2020-03-29 06:00] VITALS: BP 138/64
[2020-03-29] MEDS: DOCUSATE SODIUM 100 MG CAP PO SCH ×3 (07:43→21:00)
[2020-03-29] MEDS: buPROPion **XL** TABLET 150MG (WELLBUTRIN XL) PO SCH (07:43)
[2020-03-29] MEDS: ACETAMINOPHEN 500 MG TAB PO SCH ×3 (07:44→20:41)
[2020-03-29] MEDS: CARVedilol 12.5 MG TAB PO SCH ×2 (07:44→20:41)
[2020-03-29] MEDS: oxyCODONE 5MG TAB PO PRN ×4 (07:45→20:47)
[2020-03-29] MEDS: PANTOPRAZOLE 40MG TAB (PROTONIX) PO SCH (07:45)
[2020-03-29] MEDS: PROPAFENONE 150 MG TAB PO SCH ×2 (07:46→20:41)
[2020-03-29] MEDS: REMEDY PHYTOPLEX Z-GUARD PASTE 113GM TUBE (FROM STOREROOM PRODUCT) TOP SCH ×3 (07:50→21:00)
[2020-03-29 08:46] LABS: INR 2.88; PROTHROMBIN TIME 30.1 SECONDS (11.8-14.0)
[2020-03-29 14:00] VITALS: BP 150/67
--- NOTE | 2020-03-29 15:26 | IPN ---
DATE: 03/28/2020 Ms. Santillan is seen this morning on her bedside during hemodialysis. She still complains of pain in her right hip following surgery for fracture. She denies any nausea, vomiting, dyspnea or chest pain. PHYSICAL EXAMINATION: Temperature 96.0 degrees Fahrenheit, heart rate 68 per minute and respiratory rate 18 per minute. Blood pressure 150/69 mmHg and oxygen saturation 99% on room air. Head is atraumatic. Neck: Supple and without jugular venous distention (JVD) or thyroid enlargement. Heart sounds are regular and lungs clear to auscultation. Abdomen: Soft and nontender and bowel sounds are normal. Extremities: Without any cyanosis or clubbing. Neurologically she is awake, alert and oriented times three. Today's labs show sodium 134, potassium 4.3, CO2 of 25, BUN 31 and creatinine 3.72. Hemoglobin is 7.9 and hematocrit 25.2. PROBLEMS: 1. End-stage renal disease. The patient is being dialyzed today, and she is tolerating her dialysis treatment well. 2. Anemia. Her anemia is getting worse, and I am concerned about possibility of blood loss. She has been on Coumadin following her surgery for hip fracture. She is currently on Aranesp 200 mcg once a week. I will also start her on Venofer 100 mg after each dialysis. She has already in fact received five doses of Venofer, and we will continue with the same. Her stools should be checked for occult blood. INR is therapeutic at 2.87. 3. Hypertension. Her blood pressure has been very well controlled. No changes are needed today.
[2020-03-29] MEDS: WARFARIN SOD 5MG TAB PO SCH (16:34)
[2020-03-29 20:38] VITALS: BP 154/67
[2020-03-29] MEDS: SENNA 8.6 MG TAB (SENOKOT) PO SCH ×2 (20:41→21:00)
[2020-03-30 06:01] VITALS: BP 140/65
[2020-03-30] MEDS: oxyCODONE 5MG TAB PO PRN ×3 (06:28→21:11)
[2020-03-30] MEDS: DOCUSATE SODIUM 100 MG CAP PO SCH ×2 (07:59→21:00)
[2020-03-30] MEDS: PROPAFENONE 150 MG TAB PO SCH ×2 (07:59→21:12)
[2020-03-30] MEDS: buPROPion **XL** TABLET 150MG (WELLBUTRIN XL) PO SCH (07:59)
[2020-03-30] MEDS: ACETAMINOPHEN 500 MG TAB PO SCH ×3 (07:59→21:12)
[2020-03-30] MEDS: PANTOPRAZOLE 40MG TAB (PROTONIX) PO SCH (07:59)
[2020-03-30] MEDS: REMEDY PHYTOPLEX Z-GUARD PASTE 113GM TUBE (FROM STOREROOM PRODUCT) TOP SCH ×3 (08:00→21:00)
[2020-03-30] MEDS: CARVedilol 12.5 MG TAB PO SCH ×2 (08:00→21:12)
[2020-03-30 10:35] LABS: INR 3.13; PROTHROMBIN TIME 32.1 SECONDS (11.8-14.0)
[2020-03-30 11:25] LABS: BASO # 0.1 10^3/uL (0.0-0.2); BASO % 1.1 % (0.0-1.0); EOS # 0.1 10^3/uL (0.0-0.5); EOS % 1.4 % (0.0-3.0); HEMATOCRIT 29.6 % (36.0-47.0); HEMOGLOBIN 9.1 g/dl (12.0-15.5); LYMPH % 10.1 % (24.0-44.0); MEAN CORPUSCULAR HEMOGLOBIN 32.7 pg (27.0-33.0); MEAN CORPUSCULAR HGB CONC 30.7 g/dl (32.0-36.5); MEAN CORPUSCULAR VOLUME 106.5 fl (80.0-96.0); MONO # 0.8 10^3/uL (0.0-0.8); MONO % 8.4 % (0.0-5.0); NEUTROPHILS # 7.4 10^3/uL (1.5-8.5); NEUTROPHILS % 78.5 % (36.0-66.0); PLATELET COUNT, AUTOMATED 477 10^3/uL (150-450); RED BLOOD COUNT 2.78 10^6/uL (4.00-5.40); WHITE BLOOD COUNT 9.5 10^3/uL (4.0-10.0)
[2020-03-30 12:38] LABS: CALCIUM LEVEL 9.7 MG/DL (8.8-10.2); CREATININE FOR GFR 4.04 MG/DL (0.55-1.30); GLOMERULAR FILTRATION RATE 11.7 (>45); POTASSIUM SERUM 4.9 MEQ/L (3.5-5.1)
[2020-03-30 14:00] VITALS: BP 136/63
--- NOTE | 2020-03-30 15:01 | IPNPDOC ---
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 REVIEW OF SYSTEMS: The following is a completed review of systems and has been reviewed. Review of systems otherwise unremarkable. PAIN: Patient self reports right hip pain EYES: No recent vision changes EARS, NOSE, & THROAT: No throat pain, or dysphagia, or rhinorrhea CARDIOVASCULAR: Denies chest pain or palpitations PULMONARY: Denies shortness of breath GASTROINTESTINAL: +loose stools (improved) GENITOURINARY: denies dysuria MUSCULOSKELETAL: right hip fracture NEUROLOGICAL: no focal tremor or paresthesias HEMATOLOGICAL: +anemia SKIN: right hip incision PSYCHIATRIC: Unremarkable All other review of systems found to be negative. PHYSICAL EXAMINATION: VITAL SIGNS: Please see below. GENERAL: Pleasant and cooperative. No acute distress. HEENT: PERRL. Extraocular movements intact. Clear conjunctiva CARDIOVASCULAR: Regular rate and rhythm. No murmurs, rubs, or gallops LUNGS: Clear to auscultation bilaterally. No wheezes. No rhonchi ABDOMEN: Soft, nontender, nondistended. Positive bowel sounds. Normal active bowel sounds NEUROLOGICAL: Alert and oriented times three. Cranial nerves II through XII grossly intact. Sensation grossly intact] EXTREMITIES: 5\5 strength bilateral upper extremities. >3/5 right hip flexors and knee extension (limited due to surgery), 5/5 ankle DF/EHL and PF 5/5 strength in left lower extremity. SKIN: no sacral erythema, right hip incision with scant serous drainage, no hector incisional induration ASSESSMENT:69-year-old F with past medical history of AFib on Coumadin who presents status post fall with right hip fracture PLAN: 1. rehab- PT/OT advance agit and ADLs maintaining hip precautions, strengthen/ stretch all 4 limbs, ambulating with RW 2. Ortho: s/p right hip fracture with hemiarthroplasty, ortho consulted 3. CArdiac; hx of Afib on Coumadin, monitor INRs, c/u coreg and rythmol -medicine consulted to assist in overall management -no documented CHF, will monitor clinically 4. Resp: encourage incentive spirometry 5. Heme: post op anemia, will consider transfusion if Hgb <8 or if symptomatic, Hgb up from 8.2-->8.6-->9.1 today s/p aranesp and venofer 6. GI ppx: protonix 7. Renal: ESRD on HD, renal consulted to assist with HD and anemia 8. DVT ppx: on coumadin, teds 9. Pain:tylenol and oxycodone 10. Psych: Wellbutrin for depression and Rozerem prn for insomnia 11. DIspo: 04-03-20 o home, progressing towards goals Allergies Coded Allergies: Sulfa (Sulfonamide Antibiotics) (Verified Adverse Reaction, Intermediate, upset stomach, 06/27/19) Vital Signs Vital Signs Date Time Temp Pulse Resp B/P (MAP) Pulse Ox O2 Delivery O2 Flow Rate FiO2 03/30/20 14:00 97.0 68 17 136/63 (87) 100 Room Air Laboratory Data CBC/BMP Laboratory Tests 03/30/20 10:09 03/30/20 11:29 Labs 24H Laboratory Tests 2 03/30/20 10:09: Immature Granulocyte % (Auto) 0.5, Neutrophils (%) (Auto) 78.5H, Lymphocytes (%) (Auto) 10.1L, Monocytes (%) (Auto) 8.4H, Eosinophils (%) (Auto) 1.4, Basophils (%) (Auto) 1.1H, Neutrophils # (Auto) 7.4, Lymphocytes # (Auto) 1.0L, Monocytes # (Auto) 0.8, Eosinophils # (Auto) 0.1, Basophils # (Auto) 0.1, Nucleated Red Blood Cells % (auto) 0.0, Prothrombin Time 32.1H, Prothromb Time International Ratio 3.13 03/30/20 11:29: Anion Gap 9, Glomerular Filtration Rate 11.7L, Calcium Level 9.7 Current Medications Current Medications Current Medications Medications (Trade) Dose Ordered Sig/Eileen Route PRN Reason Start Time Stop Time Status Last Admin Dose Admin Acetaminophen (Tylenol Tab) 1,000 mg TID PO 03/24/20 16:00 03/30/20 07:59 Bisacodyl (Dulcolax Suppository) 10 mg DAILYPRN PRN [place] CONSTIPATION 03/24/20 12:00 Bupropion HCl (Wellbutrin Xl) 300 mg DAILY PO 03/25/20 09:00 03/30/20 07:59 Carvedilol (COReg) 12.5 mg BID PO 03/24/20 21:00 03/30/20 08:00 Darbepoetin Raul (Aranesp (Dialysis Use)) 200 mcg HD IV 03/25/20 10:30 Docusate Sodium (Colace) 100 mg BID PO 03/24/20 21:00 03/30/20 07:59 Home Med (Med Rec Complete!) ASDIRECTED XX 03/24/20 16:30 03/24/20 16:26 DC Iron (Venofer) 100 mg HD IV 03/25/20 10:30 03/29/20 10:31 DC Ondansetron HCl (Zofran Odt) 4 mg Q6HP PRN PO NAUSEA OR VOMITING 03/28/20 14:45 Oxycodone HCl (Roxicodone, Oxyir) 5 mg Q4HP PRN PO PAIN 03/24/20 12:00 03/30/20 12:14 Oxycodone HCl (Roxicodone, Oxyir) 10 mg Q4HP PRN PO SEVERE PAIN (PS 8-10) 03/24/20 12:00 03/28/20 07:54 Pantoprazole Sodium (Protonix) 40 mg DAILY PO 03/25/20 09:00 03/30/20 07:59 Polyethylene Glycol (Miralax) 1 pkt DAILY PRN PO CONSTIPATION 03/24/20 12:00 Propafenone HCl (Rythmol) 300 mg BID PO 03/24/20 21:00 03/30/20 07:59 Ramelteon (Rozerem) 8 mg QHS PRN PO INSOMNIA 03/24/20 12:00 03/24/20 23:03 Senna (Senokot) 1 tab QHS PO 03/24/20 21:00 Warfarin Sodium (Coumadin) 4 mg DAILY@1700 PO 03/30/20 17:00 Warfarin Sodium (Coumadin) 5 mg DAILY@1700 PO 03/24/20 17:00 03/30/20 11:06 DC 03/29/20 16:34 LINA CASTILLO MD Mar 30, 2020 15:01
[2020-03-30] MEDS: WARFARIN SOD 4 MG TAB PO SCH (16:01)
[2020-03-30 19:46] VITALS: BP 154/76
[2020-03-30] MEDS: SENNA 8.6 MG TAB (SENOKOT) PO SCH (21:00)
[2020-03-31 06:00] VITALS: BP 142/65
[2020-03-31] MEDS: oxyCODONE 5MG TAB PO PRN ×3 (06:36→21:01)
[2020-03-31] MEDS: REMEDY PHYTOPLEX Z-GUARD PASTE 113GM TUBE (FROM STOREROOM PRODUCT) TOP SCH ×3 (09:00→21:00)
[2020-03-31] MEDS: DOCUSATE SODIUM 100 MG CAP PO SCH ×2 (09:17→21:00)
[2020-03-31] MEDS: ACETAMINOPHEN 500 MG TAB PO SCH ×3 (09:17→21:01)
[2020-03-31] MEDS: PANTOPRAZOLE 40MG TAB (PROTONIX) PO SCH (09:18)
[2020-03-31] MEDS: buPROPion **XL** TABLET 150MG (WELLBUTRIN XL) PO SCH (09:18)
[2020-03-31] MEDS: CARVedilol 12.5 MG TAB PO SCH ×2 (09:18→21:01)
[2020-03-31] MEDS: PROPAFENONE 150 MG TAB PO SCH ×2 (09:19→21:00)
[2020-03-31] MEDS ORDERED: IRON SUCROSE 100MG 5ML VIAL (J1756 PER 1MG) IV SCH (10:00)
--- NOTE | 2020-03-31 11:00 | IPN ---
DATE OF SERVICE: 03/30/2020 SUBJECTIVE: Ms. Santillan was seen and examined this morning during bedside rounds in acute rehabilitation unit (ARU). She states that she has no complaints today. She just completed physical therapy (PT) and is resting comfortably in her bed. Her possible plan of discharge is later this week on Monday. She is going for dialysis tomorrow. No overnight events reported by nursing. PHYSICAL EXAMINATION: Vitals: Temperature 96.9, pulse 68, respirations 18, blood pressure 140/64, MAP of 90, pulse oximetry 94% on room air. Intake total 960 mL, output total nothing recorded, balance of 960 mL. Weight this morning is 73.9 kg. Last dialysis session was on 03/28/2020 where 1 liter was removed. General: This is a very pleasant, 69-year-old female who does not appear in acute distress, appropriately answering questions, laying comfortably in the bed. No accessory muscle use. No jugular venous distention (JVD). Heart sounds irregularly irregular. Rate controlled. Lungs clear to auscultation bilaterally. Abdomen soft and nontender. Extremities: No lower extremity edema. Neurologic: No focal deficit noticed. Alert and oriented times three. LABORATORIES: Hematology: WBC 9.5, hemoglobin 9.1, hematocrit 29.6, platelets 477. Chemistries: Sodium 138, potassium 4.9, chloride 104, carbon dioxide 25, anion gap 9, BUN 28, creatinine 4.04, fasting glucose 152, calcium 9.7. INR 3.13. ASSESSMENT AND PLAN: 1. End stage renal disease. The patient's dialysis schedule is Monday, , Monday. Her next dialysis session is tomorrow. She tolerates all her dialysis sessions well and will continue as scheduled. No ultrafiltration needed today. 2. Anemia. Her hemoglobin today was 9.1 and she has not been transfused any units of blood. Her Coumadin is therapeutic at 3.13. Will need to monitor. She is tolerating Aranesp 200 mcg once a week as well as Venofer 100 mg after each dialysis session so will continue as such. 3. Hypertension. Well controlled. Continue to monitor.
[2020-03-31 13:00] LABS: BASO # 0.1 10^3/uL (0.0-0.2); BASO % 0.6 % (0.0-1.0); EOS # 0.1 10^3/uL (0.0-0.5); EOS % 0.7 % (0.0-3.0); HEMATOCRIT 26.3 % (36.0-47.0); HEMOGLOBIN 8.2 g/dl (12.0-15.5); LYMPH # 1.1 10^3/uL (1.5-5.0); LYMPH % 9.6 % (24.0-44.0); MEAN CORPUSCULAR HEMOGLOBIN 32.7 pg (27.0-33.0); MEAN CORPUSCULAR HGB CONC 31.2 g/dl (32.0-36.5); MEAN CORPUSCULAR VOLUME 104.8 fl (80.0-96.0); MONO # 0.8 10^3/uL (0.0-0.8); MONO % 7.3 % (0.0-5.0); NEUTROPHILS % 81.2 % (36.0-66.0); PLATELET COUNT, AUTOMATED 522 10^3/uL (150-450); RED BLOOD COUNT 2.51 10^6/uL (4.00-5.40); WHITE BLOOD COUNT 11.1 10^3/uL (4.0-10.0)
[2020-03-31 13:21] LABS: INR 3.63; PROTHROMBIN TIME 36.2 SECONDS (11.8-14.0)
[2020-03-31 13:40] LABS: ALBUMIN 2.3 GM/DL (3.2-5.2); CALCIUM LEVEL 9.6 MG/DL (8.8-10.2); CREATININE FOR GFR 4.24 MG/DL (0.55-1.30); PHOSPHORUS LEVEL 2.5 MG/DL (2.5-4.9); POTASSIUM SERUM 4.8 MEQ/L (3.5-5.1)
[2020-03-31 16:39] VITALS: BP 160/72
[2020-03-31] MEDS: WARFARIN SOD 4 MG TAB PO SCH (16:45)
--- NOTE | 2020-03-31 17:47 | IPN ---
DATE: 03/31/2020 Ms. Santillan was seen and examined this morning sitting up comfortably in her chair. She worked with physical therapy (PT) this morning and did very well. PT says she has progressed very well and she possibly will be going home later this week on Monday, but they will be having a team meeting later this evening. She has no complaints today and will be going down to dialysis later this afternoon for her regularly scheduled dialysis. PHYSICAL EXAMINATION: Vital Signs: Temperature 96.9, pulse 63, respirations 18, blood pressure 142/65 (90), pulse oximetry 98% on room air. Intake total: 820 mL, output total 0 mL, balance of positive 820 mL. No weight was recorded this morning. General: This is a very pleasant 69-year-old female who does not appear in acute distress, sitting up comfortably on a chair, appropriately answering questions. No accessory muscle use. No jugular venous distention (JVD) noted. Heart: Irregularly irregular, rate controlled. Lungs: Clear to auscultation. Abdomen: Soft, nontender. Extremities: No lower extremity edema. Neurologic: No focal deficits noted. LABORATORY: Hematology was not done this morning as well as chemistries. They will be done later this afternoon during dialysis. No new imaging as well. ASSESSMENT AND PLAN: 1. End-stage renal disease. Normal schedule is Monday, , Monday. She will be going down for her regularly scheduled dialysis appointment today. Will continue as scheduled. 2. Anemia. Hemoglobin was not transfused. Will continue with Venofer and Aranesp as scheduled with every dialysis session. 3. Blood pressure, well controlled. Continue to monitor
[2020-03-31 20:00] VITALS: BP_SYST 146; BP_SYST 170; BP_DIAS 64; BP_DIAS 70
[2020-03-31] MEDS: SENNA 8.6 MG TAB (SENOKOT) PO SCH (21:00)
[2020-04-01 06:00] VITALS: BP 153/67
[2020-04-01] MEDS: buPROPion **XL** TABLET 150MG (WELLBUTRIN XL) PO SCH (07:52)
[2020-04-01] MEDS: CARVedilol 12.5 MG TAB PO SCH ×2 (07:52→21:21)
[2020-04-01] MEDS: PROPAFENONE 150 MG TAB PO SCH ×2 (07:53→21:21)
[2020-04-01] MEDS: PANTOPRAZOLE 40MG TAB (PROTONIX) PO SCH (07:53)
[2020-04-01] MEDS: ACETAMINOPHEN 500 MG TAB PO SCH ×3 (08:04→21:22)
[2020-04-01] MEDS: DOCUSATE SODIUM 100 MG CAP PO SCH ×2 (08:04→21:00)
[2020-04-01] MEDS: oxyCODONE 5MG TAB PO PRN ×3 (08:08→21:23)
[2020-04-01] MEDS: REMEDY PHYTOPLEX Z-GUARD PASTE 113GM TUBE (FROM STOREROOM PRODUCT) TOP SCH ×3 (09:00→21:00)
--- NOTE | 2020-04-01 13:53 | IPNPDOC ---
PM&R Progress Note DATE OF SERVICE: Apr 01, 2020 [employer] Progress Note Subjective: Patient seen walking in therapy, stating she feels well today and is ready for room privileges. REVIEW OF SYSTEMS: The following is a completed review of systems and has been reviewed. Review of systems otherwise unremarkable. PAIN: Patient self reports right hip pain EYES: No recent vision changes EARS, NOSE, & THROAT: No throat pain, or dysphagia, or rhinorrhea CARDIOVASCULAR: Denies chest pain or palpitations PULMONARY: Denies shortness of breath GASTROINTESTINAL: +loose stools (improved) GENITOURINARY: denies dysuria MUSCULOSKELETAL: right hip fracture NEUROLOGICAL: no focal tremor or paresthesias HEMATOLOGICAL: +anemia SKIN: right hip incision PSYCHIATRIC: Unremarkable All other review of systems found to be negative. PHYSICAL EXAMINATION: VITAL SIGNS: Please see below. GENERAL: Pleasant and cooperative. No acute distress. HEENT: PERRL. Extraocular movements intact. Clear conjunctiva CARDIOVASCULAR: Regular rate and rhythm. No murmurs, rubs, or gallops LUNGS: Clear to auscultation bilaterally. No wheezes. No rhonchi ABDOMEN: Soft, nontender, nondistended. Positive bowel sounds. Normal active bowel sounds NEUROLOGICAL: Alert and oriented times three. Cranial nerves II through XII grossly intact. Sensation grossly intact] EXTREMITIES: 5\5 strength bilateral upper extremities. >3/5 right hip flexors and knee extension (limited due to surgery), 5/5 ankle DF/EHL and PF 5/5 strength in left lower extremity. SKIN: no sacral erythema, right hip incision with scant serous drainage, no hector incisional induration ASSESSMENT:69-year-old F with past medical history of AFib on Coumadin who presents status post fall with right hip fracture PLAN: 1. rehab- PT/OT advance agit and ADLs maintaining hip precautions, strengthen/stretch all 4 limbs, ambulating with RW- room privileges 2. Ortho: s/p right hip fracture with hemiarthroplasty, ortho consulted 3. CArdiac; hx of Afib on Coumadin, monitor INRs, c/u coreg and rythmol- holding coumadin -medicine consulted to assist in overall management -no documented CHF, will monitor clinically 4. Resp: encourage incentive spirometry 5. Heme: post op anemia, will consider transfusion if Hgb <8, patient aymptomatic, s/p aranesp and venofer 6. GI ppx: protonix 7. Renal: ESRD on HD, renal consulted to assist with HD and anemia 8. DVT ppx: on coumadin, teds 9. Pain:tylenol and oxycodone 10. Psych: Wellbutrin for depression and Rozerem prn for insomnia 11. DIspo: 04-03-20 o home, progressing towards goals Allergies Coded Allergies: Sulfa (Sulfonamide Antibiotics) (Verified Adverse Reaction, Intermediate, upset stomach, 06/27/19) Vital Signs Vital Signs Date Time Temp Pulse Resp B/P (MAP) Pulse Ox O2 Delivery O2 Flow Rate FiO2 04/01/20 09:00 18 Room Air 04/01/20 06:00 97.1 70 153/67 (06) 03 Current Medications Current Medications Current Medications Medications (Trade) Dose Ordered Sig/Eileen Route PRN Reason Start Time Stop Time Status Last Admin Dose Admin Acetaminophen (Tylenol Tab) 1,000 mg TID PO 03/24/20 16:00 04/01/20 08:04 Bisacodyl (Dulcolax Suppository) 10 mg DAILYPRN PRN [place] CONSTIPATION 03/24/20 12:00 Bupropion HCl (Wellbutrin Xl) 300 mg DAILY PO 03/25/20 09:00 04/01/20 07:52 Carvedilol (COReg) 12.5 mg BID PO 03/24/20 21:00 04/01/20 07:52 Darbepoetin Raul (Aranesp (Dialysis Use)) 200 mcg HD IV 03/25/20 10:30 Docusate Sodium (Colace) 100 mg BID PO 03/24/20 21:00 04/01/20 08:04 Home Med (Med Rec Complete!) ASDIRECTED XX 03/24/20 16:30 03/24/20 16:26 DC Iron (Venofer) 100 mg HD IV 03/25/20 10:30 03/29/20 10:31 DC Iron (Venofer) 100 mg HD IV 03/31/20 10:00 Ondansetron HCl (Zofran Odt) 4 mg Q6HP PRN PO NAUSEA OR VOMITING 03/28/20 14:45 Oxycodone HCl (Roxicodone, Oxyir) 5 mg Q4HP PRN PO PAIN 03/24/20 12:00 03/31/20 21:01 Oxycodone HCl (Roxicodone, Oxyir) 10 mg Q4HP PRN PO SEVERE PAIN (PS 8-10) 03/24/20 12:00 04/01/20 08:08 Pantoprazole Sodium (Protonix) 40 mg DAILY PO 03/25/20 09:00 04/01/20 07:53 Polyethylene Glycol (Miralax) 1 pkt DAILY PRN PO CONSTIPATION 03/24/20 12:00 Propafenone HCl (Rythmol) 300 mg BID PO 03/24/20 21:00 04/01/20 07:53 Ramelteon (Rozerem) 8 mg QHS PRN PO INSOMNIA 03/24/20 12:00 03/24/20 23:03 Senna (Senokot) 1 tab QHS PO 03/24/20 21:00 Warfarin Sodium (Coumadin) 4 mg DAILY@1700 PO 03/30/20 17:00 04/01/20 10:31 DC 03/31/20 16:45 Warfarin Sodium (Coumadin) 5 mg DAILY@1700 PO 03/24/20 17:00 03/30/20 11:06 DC 03/29/20 16:34 LINA CASTILLO MD Apr 01, 2020 13:53
[2020-04-01 14:00] VITALS: BP 143/69
[2020-04-01 14:37] LABS: INR 3.32; PROTHROMBIN TIME 33.7 SECONDS (11.8-14.0)
--- NOTE | 2020-04-01 18:07 | IPN ---
DATE: 04/01/2020 Ms. Santillan was seen and examined this morning during bedside rounds. She was actually in the acute rehabilitation unit (ARU) apartment working on baking a cake with ARU staff. She had no complaints today. She tolerated her dialysis yesterday very well, where they removed 1 liter. She is on track to be possibly going home this Monday. She has no complaints. PHYSICAL EXAMINATION: VITAL SIGNS: Temperature 97.1, pulse 70, respirations 16, blood pressure 153/67 (95), pulse oximetry 97% or. GENERAL: This is a 69-year-old female who does not appear in acute distress. Appropriately ambulating around the apartment with a walker. HEAD: Atraumatic, normocephalic. CHEST: Bilateral air movements with no accessory muscle use. LOWER EXTREMITIES: No lower extremity edema. Ambulating with a walker. NEUROLOGIC: Alert and oriented times three. LABORATORY DATA: No new labs were drawn today. ASSESSMENT AND PLAN: 1. End-stage renal disease. Normal schedule is Monday, , Monday. She dialyzed appropriately yesterday and will continue as scheduled. 2. Anemia. Currently stable. Continue with the Venofer and Aricept as scheduled with dialysis session. 3. Blood pressure control. Continue to monitor.
[2020-04-01 20:00] VITALS: BP 150/70
[2020-04-01] MEDS: SENNA 8.6 MG TAB (SENOKOT) PO SCH (21:00)
[2020-04-02 06:00] VITALS: BP 150/69
[2020-04-02] MEDS: REMEDY PHYTOPLEX Z-GUARD PASTE 113GM TUBE (FROM STOREROOM PRODUCT) TOP SCH ×3 (09:00→21:00)
[2020-04-02] MEDS: DOCUSATE SODIUM 100 MG CAP PO SCH ×2 (09:00→21:00)
[2020-04-02] MEDS: ACETAMINOPHEN 500 MG TAB PO SCH ×3 (09:00→21:00)
[2020-04-02] MEDS: PANTOPRAZOLE 40MG TAB (PROTONIX) PO SCH (09:03)
[2020-04-02] MEDS: buPROPion **XL** TABLET 150MG (WELLBUTRIN XL) PO SCH (09:03)
[2020-04-02] MEDS: CARVedilol 12.5 MG TAB PO SCH ×2 (09:04→21:01)
[2020-04-02] MEDS: PROPAFENONE 150 MG TAB PO SCH ×2 (09:04→21:01)
[2020-04-02] MEDS: oxyCODONE 5MG TAB PO PRN ×3 (09:06→21:32)
--- NOTE | 2020-04-02 10:17 | IPNPDOC ---
PM&R Progress Note DATE OF SERVICE: Apr 02, 2020 [employer] Aide Progress Note DATE OF ADMISSION: March 24, 2020 at 13:00 INPATIENT REHABILITATION ADMISSION DAY: # SUBJECTIVE: Patient is a -year-old with . ALLERGIES: See Below MEDICATIONS: Reviewed, see below. OBJECTIVE: VITAL SIGNS: Please see below. PHYSICAL EXAMINATION: GENERAL: [Cachectic, well developed, sitting up in bed, no acute distress]. HEENT: [Normocephalic, atraumatic]. [No facial droop]. [Poor dentition, missing teeth. PERRL, EOMI]. CARDIOVASCULAR: [S1, S2, irregular rate]. [No lower limb edema or calf tendernes s]. LUNGS: [Decreased breath sounds, coarse throughout]. ABDOMEN: [Soft, nontender, nondistended. Normoactive bowel sounds throughout]. MUSCULOSKELETAL: MMT: /5 strength proximally bilateral shoulder abduction, forward flexion and bilateral hip flexion. /5 strength bilateral elbow flexion, knee flexion, /5 bilateral elbow extension and knee extension. /5 photocopying equipment mechanic, dorsiflexion, plantar flexion. NEUROLOGICAL: [Alert and oriented times three]. [Answers all question appropriately]. SKIN: . LABORATORY DATA: Reviewed. Please see below. MICROBIOLOGY: Please see below. IMAGING: ASSESSMENT AND PLAN: 1. . 2. . 3. . TIME SPENT: Chart Review, examination and documentation minutes. Allergies Coded Allergies: Sulfa (Sulfonamide Antibiotics) (Verified Adverse Reaction, Intermediate, upset stomach, 06/27/19) Vital Signs Vital Signs Date Time Temp Pulse Resp B/P (MAP) Pulse Ox O2 Delivery O2 Flow Rate FiO2 04/02/20 09:06 20 Room Air 04/02/20 09:04 82 150/69 04/02/20 06:00 97.4 98 Laboratory Data Labs 24H Laboratory Tests 2 04/01/20 14:14: Prothrombin Time 33.7H, Prothromb Time International Ratio 3.32 Current Medications Current Medications Current Medications Medications (Trade) Dose Ordered Sig/Eileen Route PRN Reason Start Time Stop Time Status Last Admin Dose Admin Acetaminophen (Tylenol Tab) 1,000 mg TID PO 03/24/20 16:00 04/01/20 21:22 Bisacodyl (Dulcolax Suppository) 10 mg DAILYPRN PRN AR CONSTIPATION 03/24/20 12:00 Bupropion HCl (Wellbutrin Xl) 300 mg DAILY PO 03/25/20 09:00 04/02/20 09:03 Carvedilol (COReg) 12.5 mg BID PO 03/24/20 21:00 04/02/20 09:04 Darbepoetin Raul (Aranesp (Dialysis Use)) 200 mcg HD IV 03/25/20 10:30 Docusate Sodium (Colace) 100 mg BID PO 03/24/20 21:00 04/01/20 08:04 Home Med (Med Rec Complete!) ASDIRECTED XX 03/24/20 16:30 03/24/20 16:26 DC Iron (Venofer) 100 mg HD IV 03/25/20 10:30 03/29/20 10:31 DC Iron (Venofer) 100 mg HD IV 03/31/20 10:00 Ondansetron HCl (Zofran Odt) 4 mg Q6HP PRN PO NAUSEA OR VOMITING 03/28/20 14:45 Oxycodone HCl (Roxicodone, Oxyir) 5 mg Q4HP PRN PO PAIN 03/24/20 12:00 04/02/20 09:06 Oxycodone HCl (Roxicodone, Oxyir) 10 mg Q4HP PRN PO SEVERE PAIN (PS 8-10) 03/24/20 12:00 04/01/20 08:08 Pantoprazole Sodium (Protonix) 40 mg DAILY PO 03/25/20 09:00 04/02/20 09:03 Polyethylene Glycol (Miralax) 1 pkt DAILY PRN PO CONSTIPATION 03/24/20 12:00 Propafenone HCl (Rythmol) 300 mg BID PO 03/24/20 21:00 04/02/20 09:04 Ramelteon (Rozerem) 8 mg QHS PRN PO INSOMNIA 03/24/20 12:00 03/24/20 23:03 Senna (Senokot) 1 tab QHS PO 03/24/20 21:00 Warfarin Sodium (Coumadin) 4 mg DAILY@1700 PO 03/30/20 17:00 04/01/20 10:31 DC 03/31/20 16:45 Warfarin Sodium (Coumadin) 5 mg DAILY@1700 PO 03/24/20 17:00 03/30/20 11:06 DC 03/29/20 16:34 LINA CASTILLO MD Apr 02, 2020 10:17
[2020-04-02] MEDS ORDERED: WARF-23 PO (11:56)
[2020-04-02] MEDS ORDERED: OXYC-517 PO (11:56)
[2020-04-02] MEDS ORDERED: CARV12.5 PO (11:56)
[2020-04-02] MEDS ORDERED: PANT40TA3 PO (11:59)
[2020-04-02 13:27] LABS: BASO # 0.1 10^3/uL (0.0-0.2); BASO % 0.9 % (0.0-1.0); EOS # 0.1 10^3/uL (0.0-0.5); EOS % 0.9 % (0.0-3.0); HEMATOCRIT 27.2 % (36.0-47.0); HEMOGLOBIN 8.4 g/dl (12.0-15.5); LYMPH % 12.1 % (24.0-44.0); MEAN CORPUSCULAR HEMOGLOBIN 31.7 pg (27.0-33.0); MEAN CORPUSCULAR HGB CONC 30.9 g/dl (32.0-36.5); MEAN CORPUSCULAR VOLUME 102.6 fl (80.0-96.0); MONO # 0.7 10^3/uL (0.0-0.8); MONO % 8.7 % (0.0-5.0); NEUTROPHILS # 6.2 10^3/uL (1.5-8.5); NEUTROPHILS % 77.1 % (36.0-66.0); PLATELET COUNT, AUTOMATED 535 10^3/uL (150-450); RED BLOOD COUNT 2.65 10^6/uL (4.00-5.40)
[2020-04-02 13:40] LABS: INR 2.91; PROTHROMBIN TIME 30.3 SECONDS (11.8-14.0)
[2020-04-02 13:52] LABS: ALBUMIN 2.3 GM/DL (3.2-5.2); CALCIUM LEVEL 9.1 MG/DL (8.8-10.2); CREATININE FOR GFR 3.7 MG/DL (0.55-1.30); GLOMERULAR FILTRATION RATE 12.9 (>45); PHOSPHORUS LEVEL 3.6 MG/DL (2.5-4.9); POTASSIUM SERUM 4.2 MEQ/L (3.5-5.1)
--- NOTE | 2020-04-02 16:39 | IPN ---
DATE: 04/02/2020 Ms. Santillan was seen during physical therapy at the gym. She is due for hemodialysis later this afternoon. She has been feeling well and making progress with the rehabilitation following her right hip fracture and ORIF. She is anticipating discharge to home tomorrow. PHYSICAL EXAMINATION: Temperature 97.4 degrees Fahrenheit, heart rate 82 per minute and respiratory rate 20 per minute. Blood pressure 150/69 mmHg and oxygen saturation 98% on room air. Head is atraumatic. Neck supple and without JVD or thyroid enlargement. Heart sounds regular and lungs clear to auscultation. Abdomen soft and nontender and bowel sounds are normal. Extremities without any cyanosis or clubbing. Neurologically she is awake, alert and at her baseline mentation. Today's labs show WBC count 8.0, hemoglobin 8.4 and hematocrit 27.2. Sodium 139, potassium 4.2, CO2 of 26, BUN 25 and creatinine 3.7. PROBLEMS: 1. End-stage renal disease. The patient is going to be dialyzed later this afternoon. She will resume outpatient dialysis on a Monday, Monday and Monday schedule next week. I have discussed with the patient and I feel that she will be okay to skip dialysis on Monday as she will be dialyzed this afternoon. 2. Anemia. Her anemia is related to recent hip fracture and surgery. Gradually improving and stable and will be monitored and managed in outpatient dialysis clinic. 3. Hyponatremia. Sodium level corrected and normal now. No intervention is needed. 4. Hypertension. Blood pressure has been well controlled and she will continue with her current medications. DISPOSITION: From a renal standpoint, the patient can be discharged to home tomorrow and she will followup in outpatient dialysis clinic. She is scheduled for her next dialysis on Monday morning at 7 a.m.. Dictation
[2020-04-02 17:29] VITALS: BP 166/71
[2020-04-02 20:00] VITALS: BP 135/67
[2020-04-02] MEDS: SENNA 8.6 MG TAB (SENOKOT) PO SCH (21:00)
[2020-04-03 04:00] VITALS: BP 134/64
[2020-04-03] MEDS: oxyCODONE 5MG TAB PO PRN ×2 (04:24→10:37)
[2020-04-03 07:10] LABS: INR 2.05; PROTHROMBIN TIME 22.9 SECONDS (11.8-14.0)
[2020-04-03] MEDS: ACETAMINOPHEN 500 MG TAB PO SCH (09:00)
[2020-04-03] MEDS: REMEDY PHYTOPLEX Z-GUARD PASTE 113GM TUBE (FROM STOREROOM PRODUCT) TOP SCH (09:00)
[2020-04-03] MEDS: PROPAFENONE 150 MG TAB PO SCH (09:27)
[2020-04-03] MEDS: buPROPion **XL** TABLET 150MG (WELLBUTRIN XL) PO SCH (09:27)
[2020-04-03 09:28] VITALS: BP 130/60
[2020-04-03] MEDS: PANTOPRAZOLE 40MG TAB (PROTONIX) PO SCH (09:28)
[2020-04-03] MEDS: CARVedilol 12.5 MG TAB PO SCH (09:28)
[2020-04-03] MEDS: DOCUSATE SODIUM 100 MG CAP PO SCH (09:29)
--- NOTE | 2020-04-03 22:52 | IPN ---
DATE: 04/03/2020 Mrs. Santillan is seen this morning on her bedside. She had dialysis yesterday afternoon and had been doing well. She is going to go home today. She has made good progress with acute rehab following her right hip fracture and open reduction internal fixation (ORIF). PHYSICAL EXAMINATION: Temperature 98 degrees Fahrenheit, heart rate 74 per minute and respiratory rate 18 per minute. Blood pressure 130/60 mmHg and oxygen saturation in 90s on room air. Her head is atraumatic. Neck: Supple and without jugular venous distention (JVD) or thyroid enlargement. Heart sounds regular and lungs clear to auscultation. Abdomen: Soft and nontender and bowel sounds normal. Extremities: Without any cyanosis or clubbing. Neurologically, she is awake, alert and at her baseline mentation without focal deficit. Today's labs show only an INR of 2.05. She had her CBC and chemistry done yesterday prior to dialysis, which were already reviewed. PROBLEMS: 1. End-stage renal disease. The patient is going to be dialyzed on Monday, Monday and Monday schedule as an outpatient. Here she was dialyzed just yesterday afternoon, so she does not need to have dialysis today or on Monday. I have advised her to come to the next dialysis treatment on Monday. Her volume status is well compensated, and she usually gains minimal weight between treatments. Electrolytes have been within normal range. 2. Anemia. Her anemia is stable following hip surgery, and she will continue to receive treatment during dialysis. No urgent intervention is indicated at present. 3. Hypertension. Blood pressure well controlled, and she will continue with her chronic antihypertensive medications. DISPOSITION: The patient will be discharged to home today from acute rehab. She will be followed up in outpatient dialysis clinic where her next dialysis is going to be scheduled for Monday.
== END 2020-04-03 12:10 | disposition home health service (06) | DRG 559 ==
LOC: M PM&R 13:00
PROVIDERS: ADMIT Physical Medicine & Rehabilitation; ATTEND Physical Medicine & Rehabilitation
PROC: 5A1D70Z Performance of Urinary Filtration, Intermittent, Less than 6 Hours Per Day (ICD-10-PCS; principal; 2020-03-24)
DX: S72.011D Unspecified intracapsular fracture of right femur, subsequent encounter for closed fracture with routine healing (principal); N18.6 End stage renal disease; I12.0 Hypertensive chronic kidney disease with stage 5 chronic kidney disease or end stage renal disease; E87.1 Hypo-osmolality and hyponatremia; I48.91 Unspecified atrial fibrillation; E78.5 Hyperlipidemia, unspecified; D63.1 Anemia in chronic kidney disease; E87.6 Hypokalemia; R26.89 Other abnormalities of gait and mobility; Z79.01 Long term (current) use of anticoagulants; Z79.899 Other long term (current) drug therapy; Z88.2 Allergy status to sulfonamides; Z99.2 Dependence on renal dialysis; Z96.641 Presence of right artificial hip joint; K21.9 Gastro-esophageal reflux disease without esophagitis; F32.9 Major depressive disorder, single episode, unspecified; G47.00 Insomnia, unspecified

== ENCOUNTER 2020-08-10 04:45 | Emergency (ER) | payer MEDICARE, BC ==
[~2020-08-10] VITALS: Ht 170.2 cm; Wt 67.3 kg
[~2020-08-10 04:45] MED LIST changes: +PANT40TA29 PO; -PANT40TA3 PO; +PERCOCET PO
[2020-08-10] MEDS ORDERED: LIDOCAINE 1% MDV 20ML VIAL As Ordered ONE (05:18)
--- NOTE | 2020-08-10 05:57 | REPVR ---
PROCEDURE INFORMATION: Exam: CT Cervical Spine Without Contrast Exam date and time: 08/10/2020 5:15 AM Age: 70 years old Clinical indication: Injury or trauma; Fall; Blunt trauma TECHNIQUE: Imaging protocol: Computed tomography images of the cervical spine without contrast. Radiation optimization: All CT scans at this facility use at least one of these dose optimization techniques: automated exposure control; mA and/or kV adjustment per patient size (includes targeted exams where dose is matched to clinical indication); or iterative reconstruction. COMPARISON: No relevant prior studies available. FINDINGS: Limitations: Examination is limited by motion artifact. Vertebrae: No acute fracture. Bulky anterior marginal osteophytes at C3-C6. Mild degenerative spine. Diffuse facet arthropathy. C2-C3: 3 mm central disc protrusion. Mild spinal stenosis. Right neural foraminal narrowing. Left neural foraminal narrowing. C3-C4: 4 mm disc osteophyte complex. Mild spinal stenosis. No right neural foraminal narrowing. No left neural foraminal narrowing. C4-C5: No significant disc protrusion. No severe spinal canal stenosis. No significant neural foraminal narrowing. C5-C6: 3 mm disc osteophyte complex. Mild spinal stenosis. No right neural foraminal narrowing. No left neural foraminal narrowing. C6-C7: 4 mm disc osteophyte complex. Mild spinal stenosis. Right neural foraminal narrowing. Left neural foraminal narrowing. C7-T1: No significant disc protrusion. No severe spinal canal stenosis. No significant neural foraminal narrowing. Soft tissues: Unremarkable. Thyroid: Dominant nodule in the left lobe of the thyroid measuring 3.6 x 2.2 x 3.2 cm. Multiple other nodules in the thyroid. Vasculature: Moderate calcified atherosclerotic disease. Lungs: Mild biapical fibrosis. IMPRESSION: 1. No acute fracture. 2. Degenerative changes as described. 3. Multiple nodules in the thyroid. Consider routine follow-up thyroid ultrasound. COMMENTS: Consistent with the [employer]'s Incidental Findings Committee white paper (J Am Noam Radiol 2015): In patients aged 35 years and older with an incidental thyroid nodule equal to or greater than 1.[address], MRI or extrathyroidal US, further evaluation with dedicated thyroid US is recommended for patients with normal life expectancy and without comorbidities. For smaller nodules without suspicious features, no further evaluation or follow up is recommended. Electronically signed by: Romel Jerez On 08/10/2020 05:56:47 AM
--- NOTE | 2020-08-10 05:57 | REPVR ---
PROCEDURE INFORMATION: Exam: CT Head Without Contrast Exam date and time: 08/10/2020 5:15 AM Age: 70 years old Clinical indication: Injury or trauma; Fall; Blunt trauma (contusions or hematomas) TECHNIQUE: Imaging protocol: Computed tomography of the head without contrast. Radiation optimization: All CT scans at this facility use at least one of these dose optimization techniques: automated exposure control; mA and/or kV adjustment per patient size (includes targeted exams where dose is matched to clinical indication); or iterative reconstruction. COMPARISON: CT Head without contrast 04/30/2019 1:58 PM FINDINGS: Brain: Mild hypodensities in the periventricular white matter which are consistent with chronic small vessel ischemic disease. Chronic lacunar infarcts in the left lentiform nucleus. No acute mass effect. No acute intracranial hemorrhage. Cortical bhatia-white matter differentiation is preserved. Cerebral ventricles: No ventriculomegaly. Bones/joints: Unremarkable. No acute fracture. Paranasal sinuses: Visualized sinuses are unremarkable. No fluid levels. Mastoid air cells: Visualized mastoid air cells are well aerated. Soft tissues: Unremarkable. IMPRESSION: 1. No acute intracranial hemorrhage. 2. Mild hypodensities in the periventricular white matter which are consistent with chronic small vessel ischemic disease. Electronically signed by: Romel Jerez On 08/10/2020 05:57:26 AM
[2020-08-10 06:11] LABS: BASO # 0.1 10^3/uL (0.0-0.2); BASO % 0.8 % (0.0-1.0); EOS # 0.1 10^3/uL (0.0-0.5); EOS % 0.8 % (0.0-3.0); HEMATOCRIT 30.7 % (36.0-47.0); HEMOGLOBIN 9.8 g/dl (12.0-15.5); LYMPH # 1.1 10^3/uL (1.5-5.0); LYMPH % 13.1 % (24.0-44.0); MEAN CORPUSCULAR HEMOGLOBIN 31.8 pg (27.0-33.0); MEAN CORPUSCULAR HGB CONC 31.9 g/dl (32.0-36.5); MEAN CORPUSCULAR VOLUME 99.7 fl (80.0-96.0); MONO # 0.6 10^3/uL (0.0-0.8); MONO % 6.4 % (0.0-5.0); NEUTROPHILS # 6.7 10^3/uL (1.5-8.5); NEUTROPHILS % 78.5 % (36.0-66.0); PLATELET COUNT, AUTOMATED 278 10^3/uL (150-450); RED BLOOD COUNT 3.08 10^6/uL (4.00-5.40); WHITE BLOOD COUNT 8.5 10^3/uL (4.0-10.0)
[2020-08-10 06:19] LABS: INR 1.3; PROTHROMBIN TIME 16.5 SECONDS (12.5-14.3)
[2020-08-10 06:26] LABS: CALCIUM LEVEL 8.6 MG/DL (8.8-10.2); CREATININE FOR GFR 5.99 MG/DL (0.55-1.30); GLOMERULAR FILTRATION RATE 7.4 (>39); POTASSIUM SERUM 4.1 MEQ/L (3.5-5.1)
[2020-08-10] MEDS ORDERED: DERMABOND TOPICAL SKIN ADHESIVE TOP ONE (06:30)
[2020-08-10] MEDS ORDERED: ISOVUE-370 76% 100ML VIAL As Ordered ONE (06:32)
--- NOTE | 2020-08-10 07:11 | REPVR ---
PROCEDURE INFORMATION: Exam: CT Thoracic Spine With Contrast Exam date and time: 08/10/2020 6:48 AM Age: 70 years old Clinical indication: Injury or trauma; Fall; Blunt trauma (contusions or hematomas) TECHNIQUE: Imaging protocol: Computed tomography images of the thoracic spine with intravenous contrast. Radiation optimization: All CT scans at this facility use at least one of these dose optimization techniques: automated exposure control; mA and/or kV adjustment per patient size (includes targeted exams where dose is matched to clinical indication); or iterative reconstruction. COMPARISON: No relevant prior studies available. FINDINGS: Vertebrae: No acute fracture. No subluxation. Mild anterior marginal osteophytes. T1-T2: No significant disc protrusion. No severe spinal canal stenosis. No significant neural foraminal narrowing. T2-T3: No significant disc protrusion. No severe spinal canal stenosis. No significant neural foraminal narrowing. T3-T4: No significant disc protrusion. No severe spinal canal stenosis. No significant neural foraminal narrowing. T4-T5: No significant disc protrusion. No severe spinal canal stenosis. No significant neural foraminal narrowing. T5-T6: No significant disc protrusion. No severe spinal canal stenosis. No significant neural foraminal narrowing. T6-T7: No significant disc protrusion. No severe spinal canal stenosis. No significant neural foraminal narrowing. T7-T8: No significant disc protrusion. No severe spinal canal stenosis. No significant neural foraminal narrowing. T8-T9: No significant disc protrusion. No severe spinal canal stenosis. No significant neural foraminal narrowing. T9-T10: No significant disc protrusion. No severe spinal canal stenosis. No significant neural foraminal narrowing. T10-T11: No significant disc protrusion. No severe spinal canal stenosis. No significant neural foraminal narrowing. T11-T12: No significant disc protrusion. No severe spinal canal stenosis. No significant neural foraminal narrowing. T12-L1: No significant disc protrusion. No severe spinal canal stenosis. No significant neural foraminal narrowing. Thyroid: Multiple nodules in the thyroid. Largest nodule is located in the left lobe of thyroid measuring up to 3.0 x 1.8 cm. Vasculature: Mild atherosclerotic disease. IMPRESSION: 1. No acute fracture. 2. Degenerative changes as described. 3. Multiple nodules in the thyroid. Consider routine follow-up thyroid ultrasound. Electronically signed by: Romel Jerez On 08/10/2020 07:11:27 AM
--- NOTE | 2020-08-10 07:30 | REPVR ---
PROCEDURE INFORMATION: Exam: CT Abdomen And Pelvis With Contrast Exam date and time: 08/10/2020 6:48 AM Age: 70 years old Clinical indication: Abdominal pain; Additional info: Trauma TECHNIQUE: Imaging protocol: Computed tomography of the abdomen and pelvis with intravenous contrast. Radiation optimization: All CT scans at this facility use at least one of these dose optimization techniques: automated exposure control; mA and/or kV adjustment per patient size (includes targeted exams where dose is matched to clinical indication); or iterative reconstruction. Contrast material: ISO 370; Contrast volume: 100 ml; Contrast route: INTRAVENOUS (IV); COMPARISON: CT ABD PELVIS W/O CONTRAST 11/28/2015 11:33 AM FINDINGS: Liver: Normal. No mass. Gallbladder and bile ducts: Normal. No calcified stones. No ductal dilation. Pancreas: Normal. No ductal dilation. Spleen: Normal. No splenomegaly. Calcified granuloma in the spleen. Adrenals: Normal. No mass. Kidneys and ureters: Circumscribed hypodense lesion in the upper pole left kidney measuring 12 mm. No hydronephrosis bilaterally. Nonspecific perinephric stranding bilaterally. Stomach and bowel: Severe stool in the colon. No abnormal bowel dilatation. No abnormal bowel wall thickening. Appendix: Appendix is normal. Intraperitoneal space: Unremarkable. No free air. No significant fluid collection. Vasculature: Unremarkable. No abdominal aortic aneurysm. Lymph nodes: Unremarkable. No enlarged lymph nodes. Urinary bladder: Unremarkable as visualized. Reproductive: Status post hysterectomy. Bones/joints: Status post right hip arthroplasty. Moderate degenerative spine. No acute fracture. Mild degenerative changes of the left hip. Soft tissues: Lipoma in the left gluteus medius muscle measuring 3.2 x 7.3 x 7.3 cm. No suspicious soft tissue components evident. IMPRESSION: 1. No evidence of acute abdominal injury. 2. Cholelithiasis without evidence of acute cholecystitis. 3. Benign appearing cyst in the left kidney. No follow-up is necessary. 4. Lipoma in the left gluteus medius muscle. No change from prior. Electronically signed by: Romel Jerez On 08/10/2020 07:29:30 AM
--- NOTE | 2020-08-10 07:34 | REPVR ---
PROCEDURE INFORMATION: Exam: CT Chest With Contrast Exam date and time: 08/10/2020 6:48 AM Age: 70 years old Clinical indication: Injury or trauma; Fall; Blunt trauma (contusions or hematomas) TECHNIQUE: Imaging protocol: Computed tomography of the chest with intravenous contrast. Radiation optimization: All CT scans at this facility use at least one of these dose optimization techniques: automated exposure control; mA and/or kV adjustment per patient size (includes targeted exams where dose is matched to clinical indication); or iterative reconstruction. Contrast material: ISO 370; Contrast volume: 100 ml; Contrast route: INTRAVENOUS (IV); COMPARISON: No relevant prior studies available. FINDINGS: Limitations: Examination is limited by motion artifact. Thyroid: Multiple nodules in the thyroid. Largest fibroid is located in the left lobe of the measuring 2.9 x 1.8 x 3.2 cm. Tracheobronchial tree: Visualized airway is unremarkable. Lungs: No consolidation. No masses. Mild biapical fibrosis. Pleural space: Unremarkable. No pneumothorax. No pleural effusion. Heart: Unremarkable. No cardiomegaly. No pericardial effusion. Coronary arteries: Mild coronary artery calcification. Aorta: Mild atherosclerotic disease. No aortic aneurysm. Lymph nodes: Unremarkable. No enlarged lymph nodes. Gallbladder and bile ducts: Small gallstones layering in the gallbladder. No gallbladder wall thickening. Bones/joints: Mild degenerative spine. No acute fracture. Soft tissues: Unremarkable. IMPRESSION: 1. No evidence of acute chest injury. 2. Multiple thyroid nodules. Consider routine follow-up thyroid ultrasound. 3. Additional findings as described. COMMENTS: Consistent with the [employer]'s Incidental Findings Committee white paper (J Am Noam Radiol 2015): In patients aged 35 years and older with an incidental thyroid nodule equal to or greater than 1.[address], MRI or extrathyroidal US, further evaluation with dedicated thyroid US is recommended for patients with normal life expectancy and without comorbidities. For smaller nodules without suspicious features, no further evaluation or follow up is recommended. Electronically signed by: Romel Jerez On 08/10/2020 07:34:00 AM
--- NOTE | 2020-08-10 07:36 | REPVR ---
PROCEDURE INFORMATION: Exam: CT Lumbar Spine With Contrast Exam date and time: 08/10/2020 6:48 AM Age: 70 years old Clinical indication: Injury or trauma; Fall; Blunt trauma (contusions or hematomas) TECHNIQUE: Imaging protocol: Computed tomography images of the lumbar spine with intravenous contrast. Radiation optimization: All CT scans at this facility use at least one of these dose optimization techniques: automated exposure control; mA and/or kV adjustment per patient size (includes targeted exams where dose is matched to clinical indication); or iterative reconstruction. COMPARISON: No relevant prior studies available. FINDINGS: Limitations: Examination is limited by body habitus. Vertebrae: No acute fracture. Diffuse facet arthropathy. Multilevel mild anterior marginal osteophytes. Incidental transitional L5 vertebra. Small rudimentary ribs at T12. L1-L2: No significant disc protrusion. No severe spinal canal stenosis. No significant neural foraminal narrowing. L2-L3: No significant disc protrusion. No spinal canal stenosis. No neural foraminal narrowing. L3-L4: Limited evaluation of the spinal canal. L4-L5: Limited evaluation of the spinal canal. L5-S1: Limited evaluation of the spinal canal. Kidneys and ureters: Circumscribed hypodense lesion in the left kidney measuring up to 10 mm. Vasculature: Moderate atherosclerotic disease. Soft tissues: Unremarkable. IMPRESSION: 1. No acute fracture. 2. Mild degenerative changes as described. 3. Circumscribed hypodense lesion in the left kidney. Consistent with cyst. No follow-up is necessary. Electronically signed by: Romel Jerez On 08/10/2020 07:36:40 AM
[2020-08-10 07:55] VITALS: BP 178/65
== END 2020-08-10 07:57 | disposition home or self-care (01) ==
LOC: M ED 04:45
DX: S01.01XA Laceration without foreign body of scalp, initial encounter (principal); S80.212A Abrasion, left knee, initial encounter; W01.0XXA Fall on same level from slipping, tripping and stumbling without subsequent striking against object, initial encounter; I48.91 Unspecified atrial fibrillation; I10 Essential (primary) hypertension; E11.9 Type 2 diabetes mellitus without complications; N18.6 End stage renal disease; Z79.01 Long term (current) use of anticoagulants; Z79.899 Other long term (current) drug therapy; Z88.2 Allergy status to sulfonamides; Z88.1 Allergy status to other antibiotic agents; Z99.2 Dependence on renal dialysis; Y92.9 Unspecified place or not applicable; Y93.9 Activity, unspecified; Y99.9 Unspecified external cause status
CPT/HCPCS: 12002; 70450; 71260; 72125; 72128; 72131; 74177; 80048; 85025; 85610; 99284; Q9967

== ENCOUNTER 2020-10-31 12:48 | Emergency (ER) | payer MEDICARE, BC ==
[~2020-10-31] VITALS: Ht 170.2 cm; Wt 64.5 kg
[2020-10-31] MEDS ORDERED: PERCOCET 5MG/325MG TAB PO ONE (13:30)
[2020-10-31] MEDS ORDERED: LIDOCAINE 2% W/EPINEPHRINE 20ML VIAL **PRES FREE INJ ONE (13:30)
--- NOTE | 2020-10-31 14:05 | REP ---
INDICATION: trauma COMPARISON: None. TECHNIQUE: AP and lateral views of the left tibia/fibula. FINDINGS: Laceration and soft tissue injury overlies the lateral aspect of the mid calf. The osseous structures demonstrate age-related osteopenia and degenerative changes. No acute fracture or dislocation. No foreign body. IMPRESSION: Laceration and soft tissue injury to the mid calf. No foreign body or subcutaneous emphysema. No acute fracture or dislocation. <Electronically signed by Vipul Styles > 10/31/20 [id number]
[2020-10-31] MEDS ORDERED: BACI500O21 TOP (14:19)
[2020-10-31 14:45] VITALS: BP 168/67
== END 2020-10-31 15:30 | disposition home or self-care (01) ==
LOC: M ED 12:48
DX: S81.812A Laceration without foreign body, left lower leg, initial encounter (principal); W18.39XA Other fall on same level, initial encounter; Y92.018 Other place in single-family (private) house as the place of occurrence of the external cause; I12.0 Hypertensive chronic kidney disease with stage 5 chronic kidney disease or end stage renal disease; N18.6 End stage renal disease; I48.91 Unspecified atrial fibrillation; E78.9 Disorder of lipoprotein metabolism, unspecified; Z99.2 Dependence on renal dialysis; Z79.899 Other long term (current) drug therapy; Z79.01 Long term (current) use of anticoagulants; Z88.1 Allergy status to other antibiotic agents; Z88.2 Allergy status to sulfonamides

== ENCOUNTER 2020-11-06 02:40 | Emergency (ER) | payer MEDICARE, BC ==
[~2020-11-06] VITALS: Ht 167.6 cm; Wt 65.0 kg
[~2020-11-06 02:40] MED LIST changes: +BACI500O21 TOP; -BUPR150T3 PO; +BUPR150T4 PO
--- NOTE | 2020-11-06 04:39 | REPVR ---
PROCEDURE INFORMATION: Exam: XR Lumbosacral Spine, 4 or 5 Views Exam date and time: 11/06/2020 4:13 AM Age: 70 years old Clinical indication: Injury or trauma; Fall; Sprain or strain, lumbar ligaments TECHNIQUE: Imaging protocol: XR of the lumbosacral spine, 4 or 5 views. COMPARISON: CT Spine, lumbar w/o contrast 08/10/2020 6:30 AM FINDINGS: Bones/joints: Partial lumbarization of S1 with S1-S2 disc. Question of some segmental ankylosis in the upper lumbar spine. Facet arthropathy is noted in the lower lumbar spine. Mild interspace narrowing at L4-L5 and to a lesser degree L1-L4. No acute fracture or compression. Soft tissues: Unremarkable. IMPRESSION: 1. Partial lumbarization of S1. 2. Multilevel degenerative disc changes of lower lumbar facet arthropathy and question of some upper lumbar segmental ankylosis. 3. Otherwise negative lumbar spine. No acute fracture or compression. Electronically signed by: Alonso Trammell On 11/06/2020 04:39:51 AM
--- NOTE | 2020-11-06 04:40 | REPVR ---
PROCEDURE INFORMATION: Exam: XR Pelvis Exam date and time: 11/06/2020 4:13 AM Age: 70 years old Clinical indication: Injury or trauma; Fall; Swelling; Does not apply; Abdomen, lower TECHNIQUE: Imaging protocol: XR pelvis. Views: 3 or more views. COMPARISON: CT ABD PELVIS WITH CONTRAST 08/10/2020 6:30 AM FINDINGS: Bones/joints: Right hip hemiprosthesis in position. Mild degenerative change in the lower lumbar spine. No acute fracture. Question of right sacroiliitis. Soft tissues: Unremarkable. IMPRESSION: 1. Right hip hemiprosthesis in position. 2. Degenerative change of the lower lumbar spine. 3. Right sacroiliitis. 4. Otherwise negative pelvis. Electronically signed by: Alonso Trammell On 11/06/2020 04:41:26 AM
[2020-11-06 04:43] LABS: HEMATOCRIT 31.5 % (36.0-47.0); HEMOGLOBIN 9.9 g/dl (12.0-15.5); MEAN CORPUSCULAR HEMOGLOBIN 30.7 pg (27.0-33.0); MEAN CORPUSCULAR HGB CONC 31.4 g/dl (32.0-36.5); MEAN CORPUSCULAR VOLUME 97.8 fl (80.0-96.0); PLATELET COUNT, AUTOMATED 259 10^3/uL (150-450); RED BLOOD COUNT 3.22 10^6/uL (4.00-5.40); WHITE BLOOD COUNT 12.1 10^3/uL (4.0-10.0)
[2020-11-06 04:55] LABS: PROTHROMBIN TIME 54.1 SECONDS (12.5-14.3)
[2020-11-06 05:15] LABS: INR 5.88
[2020-11-06 05:17] LABS: ALBUMIN 3.2 GM/DL (3.2-5.2); BILIRUBIN,DIRECT 0.1 MG/DL (0.0-0.2); BILIRUBIN,TOTAL 0.4 MG/DL (0.2-1.0); CALCIUM LEVEL 9.4 MG/DL (8.8-10.2); CREATININE FOR GFR 5.57 MG/DL (0.55-1.30); TOTAL PROTEIN 6.5 GM/DL (6.4-8.2)
[2020-11-06 06:24] VITALS: BP 146/68
[2020-11-06] MEDS ORDERED: WARF-23 PO (13:13)
[2020-11-06] MEDS ORDERED: MEGE40TA (13:13)
== END 2020-11-06 06:27 | disposition home or self-care (01) ==
LOC: M ED 02:40
DX: R26.89 Other abnormalities of gait and mobility (principal); I12.0 Hypertensive chronic kidney disease with stage 5 chronic kidney disease or end stage renal disease; Z99.2 Dependence on renal dialysis; M46.1 Sacroiliitis, not elsewhere classified; I48.91 Unspecified atrial fibrillation; E78.5 Hyperlipidemia, unspecified; Z79.899 Other long term (current) drug therapy; Z79.01 Long term (current) use of anticoagulants; Z88.1 Allergy status to other antibiotic agents; Z88.2 Allergy status to sulfonamides

== ENCOUNTER 2020-11-06 13:02 | Emergency (ER) | payer MEDICARE, BC ==
[~2020-11-06] VITALS: Ht 170.2 cm; Wt 65.0 kg
[2020-11-06 13:02] VITALS: BP 135/71
[~2020-11-06 13:02] MED LIST changes: +BUPR150T3 PO; -BUPR150T4 PO
[2020-11-06] MEDS ORDERED: MEGE40TA (13:13)
[2020-11-06] MEDS ORDERED: WARF-23 PO (13:13)
== END 2020-11-06 15:01 | disposition home or self-care (01) ==
LOC: M ED 13:02
DX: R79.1 Abnormal coagulation profile (principal); Z48.00 Encounter for change or removal of nonsurgical wound dressing; E11.9 Type 2 diabetes mellitus without complications; I10 Essential (primary) hypertension; I48.91 Unspecified atrial fibrillation; K21.9 Gastro-esophageal reflux disease without esophagitis; M81.0 Age-related osteoporosis without current pathological fracture; Z79.899 Other long term (current) drug therapy; Z79.01 Long term (current) use of anticoagulants; Z88.2 Allergy status to sulfonamides

== ENCOUNTER → 2020-11-11 | Outpatient (REF) | payer MEDICARE, BC ==
[~2020-11-11] MED LIST changes: -BUPR150T3 PO; +BUPR150T4 PO; +MEGE40TA
== END ==
LOC: M LAB REF 17:13
PROVIDERS: ATTEND Family Medicine
DX: B87.1 Wound myiasis (principal)

== ENCOUNTER 2020-11-27 13:47 | Emergency (ER) | payer MEDICARE, BC ==
[~2020-11-27] VITALS: Ht 170.2 cm; Wt 65.0 kg
--- OUTSIDE RECORDS SUMMARY | 2020-11-27 15:30 | CCD | Continuity of Care Document ---
Author Author Lyric ANGUIANO D.O. Organization Unknown Address [address] [place] [address] Phone [phone] Care Team Providers Care Architectural Modeler Name Role Phone Lina Anguiano D.O. AUTM [phone] Shekhar Dominguez M.D. AUTM [phone] Guerline Steen AUTM [phone] Problems Active Problems Provider Date Infectious colitis, enteritis and gastroenteritis Lina Sears D.O. Onset: 12/04/2015 Atrial fibrillation Lina Anguiano D.O. Onset: 2015 Long-term current use of anticoagulant Lina Anguiano D.O. Onset: 12/04/2015 Acute renal failure syndrome Lina Anguiano D.O. Onse t: 12/04/2015 Mixed hyperlipidemia Lina Anguiano D.O. Onset: 12/04 Gastroesophageal reflux disease Lina Anguiano D.O. O nset: 12/04/2015 Anemia Lina Anguiano D.O. Onset: 2015 Type 2 diabetes mellitus Lina Anguiano D.O. Onset: 0 12/04/2015 Disorder of magnesium metabolism Lina Anguiano D.O. Onset: 12/14/2015 Chronic kidney disease stage 4 Lina Anguiano D.O. On set: 01/07/2016 Screening mammography Lina Anguiano D.O. Onset: 01/28 Osteoporosis Lina Anguiano D.O. Onset: 2015 Allergic rhinitis Lina Anguiano D.O. Onset: 2015 Generalized anxiety disorder Lina Anguiano D.O. Onse t: 07/14/2016 Removal of suture Lina Anguiano D.O. Onset: 2015 Chronic kidney disease stage 5 AFSHIN Ortega Onset: 1 12/11/2016 End stage renal failure on dialysis Shankar Anderson Onset: 01/09/2019 Social History Type Date Description Comments Sex Unknown Tobacco Use Start: Unknown End: Unknown Quit Smoking Status Reviewed: 09/30/20 Quit ETOH Use Drinks 3 Alcoholic Beverages Per Week Tobacco Use Start: Unknown End: Unknown Patient is a former smoker quit 1998 Recreational Drug Use Denies Drug Use Exercise Type/Frequency Swims 3 times a week Exercise Type/Frequency Walks 3 times a week Seat Belt/Car Seat Always uses seat belt Allergies, Adverse Reactions, Alerts Active Allergies Reaction Severity Comments Date Sulfa 12/04/2015 Erythromycin 11/16/2020 Medications Active Medications SIG Qnty Indications Ordering Provide r Date Mupirocin 2% Ointment apply to wound on the left lowe leg twice daily until resolved 22gm B87.1 Shankar AndersonOJuancarlos 11/11/2020 Celexa 20mg Tablets 1 by mouth every day 30tabs Lina Anguiano D.O. 11/11/2020 Megestrol Acetate 40mg Tablets one tablet by mouth every 6 hours 120tabs Shankar AndersonO Juancarlos 04/18/2020 Onetouch Verio Strips use to test blood sugar twice a day 100units Lina Anguiano D.O. 11/2018 Onetouch Ultra 2 w/Device Kit please dispense one glucometer to be used once daily as needed to check blood sugars 1units E11.22 Lina Anguiano D.O. 07/29/2019 Bacid Tablets 1 tab by mouth with meals three times daily 90tabs K21.9 Lina Anguiano D.O. Ondansetron HCL 4mg Tablets 1 tab by mouth every 4 hours nausea 30tabs R11.0 Lina Anguiano D.O. 10/31/2018 Raloxifene HCL 60mg Tablets take 1 tablet daily 90tabs Shankar AndersonOJuancarlos 07/14 Miralax 3350NF Powder 15 grams by mouth every other day as directed 119gm Shankar AndersonOJuancarlos 04/13/2017 Voltaren 1% Gel 1 gram to right thumb four times a day pain 300gm Shankar AndersonOJuancarlos 01/2017 One Touch Ultra Test Strips to be used wt glucometer once per day 100units E11.22 Shankar AndersonOJuancarlos 02/09/2016 Colace 100mg Capsules 1 by mouth every day as needed 30caps Shankar AndersonOJuancarlos 12/04 Fluticasone Propionate 50mcg/Act Suspension 2 spray each nostril once a day 48gm Shankar HopkinsOJuancarlos 12/04/2015 Carvedilol 3.125mg Tablets 1 by mouth twice a day 60tabs Shankar AndersonOJuancarlos 12/04 Onetouch Ultra Blue Strips test strips to be used with glucometer once daily to check blood sugars 75units Lina Anguiano D.O. Pantoprazole Sodium 40mg Tablets D R Take 1 Tablet By Mouth Once Daily 90tabs Shankar AndersonOJuancarlos Propafenone HCL 300mg Tablets 1 by mouth twice daily Unknown Tylenol 325mg Tablets take 1-2 tabs daily as needed Unknown Fexofenadine HCL 180mg Tablets 1 by mouth every day Unknown Bupropion Hydrochloride ER (XL) 300mg Tablets ER 24HR 1 by mouth every day 90tabs Shankar AndersonOJuancarlos Warfarin Sodium 5mg Tablets 1 by mouth every day 30tabs Unknown History Medications Erythromycin 500mg Tablets DR one tablet by mouth every 6 hours for 7 days 28tabs Lina Fraser D.O. 11/13/2020 - 11/16/2020 Immunizations CPT Code Status Date Vaccine Lot # U-Pneum Given 08/30/2015 Pneumococcal,Unspecified U-Flu Given 07/30/2015 Influenza,Unspecified Vital Signs Date Vital Result Comment 11/18/2020 2:56pm BP Systolic 122 mmHg BP Diastolic 78 mmHg Height 65.5 inches 5'5.50" Heart Rate 75 /min Respiratory Rate 18 /min Body Temperature 98.7 F O2 % BldC Oximetry 99 % Wing Body Weight 125 lb 11/11/2020 2:48pm BP Systolic 154 mmHg BP Diastolic 74 mmHg Height 65.5 inches 5'5.50" Weight 148.00 lb BMI (Body Mass Index) 24.3 kg/m2 Heart Rate 78 /min Respiratory Rate 20 /min Body Temperature 97.4 F O2 % BldC Oximetry 97 % Wing Body Weight 125 lb Results Test Acquired Date Facility Test Result H/L Range Note Wound Culture And Gram St 11/11/[address] [id number] [phone] Gram Stain (SEE NOTE) Normal 1 Wound Culture FULL REPORT IN L <SEE NOTE> Normal 2 Complete Blood Count 11/06/2020 [facility] Outpatient Test ing (Registration) [address] [place] [address] [phone] White Blood Count 12.1 10 High 4.0-10.0 Red Blood Count 3.22 10 Low 4.00-5.40 Hemoglobin 9.9 g/dL Low 12.0-15.5 Hematocrit 31.5 % Low 36.0-47.0 Mean Corpuscular Volume 97.8 fl High 80.0-96.0 Mean Corpuscular Hemoglobin 30.7 pg Normal 27.0-33.0 Mean Corpuscular HGB Conc 31.4 g/dL Low 32.0-36.5 Red Cell Distribution Width 13.1 % Normal 11.5-14.5 Platelet Count, Automated 259 10 Normal 150-450 Nucleated Red Blood Cell % 0.0 % Normal 0-0 Liver Profile 11/06/2020 [facility] Outpatient Testi ng (Registration) [address] [place] [address] [phone] Ast/Sgot 16 U/L Normal 7-37 Alt/SGPT 15 U/L Normal 12-78 Alkaline Phosphatase 58 U/L Normal 45-117 Bilirubin,Total 0.4 mg/dL Normal 0.2-1.0 Bilirubin,Direct 0.1 mg/dL Normal 0.0-0.2 Total Protein 6.5 GM/DL Normal 6.4-8.2 Albumin 3.2 GM/DL Normal 3.2-5.2 Albumin/Globulin Ratio 1.0 Low 1.2-2.2 Basic Metabolic Profile 11/06/2020 [facility] Outpatient T esting (Registration) [address] [place] [address] [phone] Glucose, Fasting 84 mg/dL Normal 70-100 Blood Urea Nitrogen 37 mg/dL High 7-18 Creatinine For GFR 5.57 mg/dL High 0.55-1.30 Glomerular Filtration Rate 8.0 Low >39 3 Sodium Level 139 mEq/L Normal 136-145 Potassium Serum 4.0 mEq/L Normal 3.5-5.1 Chloride Level 102 mEq/L Normal 98-107 Carbon Dioxide Level 28 mEq/L Normal 21-32 Anion Gap 9 mEq/L Normal 8-16 Calcium Level 9.4 mg/dL Normal 8.8-10.2 Prothrombin Time/Inr 11/06/2020 [facility] Outpatient Test ing (Registration) [address] [place] [address] [phone] Prothrombin Time 54.1 seconds High 12.5-14.3 Inr 5.88 Critical high 4 CBC With Differential 08/10/2020 [facility] Outpatient Joan ting (Registration) [address] [place] [address] [phone] White Blood Count 8.5 10 Normal 4.0-10.0 Red Blood Count 3.08 10 Low 4.00-5.40 Hemoglobin 9.8 g/dL Low 12.0-15.5 Hematocrit 30.7 % Low 36.0-47.0 Mean Corpuscular Volume 99.7 fl High 80.0-96.0 Mean Corpuscular Hemoglobin 31.8 pg Normal 27.0-33.0 Mean Corpuscular HGB Conc 31.9 g/dL Low 32.0-36.5 Red Cell Distribution Width 13.8 % Normal 11.5-14.5 Platelet Count, Automated 278 10 Normal 150-450 Neutrophils % 78.5 % High 36.0-66.0 Lymph % 13.1 % Low 24.0-44.0 Bradley % 6.4 % High 0.0-5.0 Eos % 0.8 % Normal 0.0-3.0 Baso % 0.8 % Normal 0.0-1.0 Immature Granulocyte % 0.4 % Normal 0-3.0 Nucleated Red Blood Cell % 0.0 % Normal 0-0 Neutrophils # 6.7 10 Normal 1.5-8.5 Lymph # 1.1 10 Low 1.5-5.0 Bradley # 0.6 10 Normal 0.0-0.8 Eos # 0.1 10 Normal 0.0-0.5 Baso # 0.1 10 Normal 0.0-0.2 Prothrombin Time/Inr 08/10/2020 [facility] Outpatient Test ing (Registration) [address] [place] [address] [phone] Prothrombin Time 16.5 seconds High 12.5-14.3 Inr 1.30 Normal 5 Basic Metabolic Profile 08/10/2020 [facility] Outpatient T esting (Registration) [address] [place] [address] [phone] Glucose, Fasting 103 mg/dL High 70-100 Blood Urea Nitrogen 38 mg/dL High 7-18 Creatinine For GFR 5.99 mg/dL High 0.55-1.30 Glomerular Filtration Rate 7.4 Low >39 6 Sodium Level 140 mEq/L Normal 136-145 Potassium Serum 4.1 mEq/L Normal 3.5-5.1 Chloride Level 108 mEq/L High 98-107 Carbon Dioxide Level 21 mEq/L Normal 21-32 Anion Gap 11 mEq/L Normal 8-16 Calcium Level 8.6 mg/dL Low 8.8-10.2 1 FEW GRAM POSITIVE COCCI IN P AIRS 2 FULL REPORT IN LAB NOTES (eC W and Medent). ORGANISM 1: STAPHYLOCOCCUS AUREUS QUANTITY OF GROWTH HEAVY ORGANISM 1: STAPHYLOCOCCUS AUREUS STAPHYLOCOCCUS AUREUS: REACTION ICR (INDUCIBLE CC RESISTANCE) IV ICR TEST RESULT TETRACYCLINE PO 250 mg qid <=1 S PENICILLIN G IV 1 mu q6h 0.06 R PENICILLIN G PO 250mg q6h fasting 0.06 R TRIMETHOPRIM/SULFAMETHOXAZOLE IV 160mg TMP & 800mg SMXq6h <=10 S TRIMETHOPRIM/SULFAMETHOXAZOLE PO Bactrim DS Bid <=10 S ERYTHROMYCIN IV 500mg q6h <=0.25 S ERYTHROMYCIN PO 500mg q6h <=0.25 S GENTAMICIN IV 80mg q8h <=0.5 S CLINDAMYCIN IV 600mg q6h 0.25 S CLINDAMYCIN PO 150mg q6h 0.25 S OXACILLIN IV 500mg q6h <=0.25 S VANCOMYCIN IV 500mg q8h 1 S LINEZOLID (ZYVOX) IV 600MG Q12HR 2 S LINEZOLID (ZYVOX) PO 600MG Q12HR 2 S An isolate with a (+) POSITIVE ICR test is considered CLINDAMYCIN RESISTANT; however, clindamycin may still be effective in some patients. An isolate with a (-) NEGATIVE ICR test is considered CLIDAMYCIN SENSITIVE. Oxacillin result predicts susceptibility to all penicillinase-stable penicillins (Nafcillin, Dicloxacilin), Cephalosporins, Carbapenems, Amoxicillin/Clavulanate & Ampicillin/Sulbactam per CSLI standards. 3 Units are mL/min/1.73 m2 Chronic Kidney Disease Staging per NKF: Stage I & II GFR >=60 Normal to Mildly Decreased Stage III GFR 30-59 Moderately Decreased Stage IV GFR 15-29 Severely Decreased Stage V GFR <15 Very Little GFR Left ESRD GFR <15 on HEADING AND PRIMING TOOL SETTER 4 THERAPUTIC HUMAN INR VALUES INDICATIONS NORMAL RANGES PROPHYLAXIS/TREATMENT OF: VENOUS THROMBOSIS 2.0-3.0 PULMONARY EMBOLISM 2.0-3.0 PREVENTION OF SYSTEMIC EMBOLISM FROM: TISSUE HEART VALVES 2.0-3.0 ACUTE MYOCARDIAL INFARCTION 2.0-3.0 VALVULAR HEART DISEASE 2.0-3.0 ATRIAL FIBRILLATION 2.0-3.0 MECHANICAL VALVES(HIGH RISK) 2.5-3.5 RECURRENT MYOCARDIAL INFARCTION 2.5-3.5 5 THERAPUTIC HUMAN INR VALUES INDICATIONS NORMAL RANGES PROPHYLAXIS/TREATMENT OF: VENOUS THROMBOSIS 2.0-3.0 PULMONARY EMBOLISM 2.0-3.0 PREVENTION OF SYSTEMIC EMBOLISM FROM: TISSUE HEART VALVES 2.0-3.0 ACUTE MYOCARDIAL INFARCTION 2.0-3.0 VALVULAR HEART DISEASE 2.0-3.0 ATRIAL FIBRILLATION 2.0-3.0 MECHANICAL VALVES(HIGH RISK) 2.5-3.5 RECURRENT MYOCARDIAL INFARCTION 2.5-3.5 6 Units are mL/min/1.73 m2 Chronic Kidney Disease Staging per NKF: Stage I & II GFR >=60 Normal to Mildly Decreased Stage III GFR 30-59 Moderately Decreased Stage IV GFR 15-29 Severely Decreased Stage V GFR <15 Very Little GFR Left ESRD GFR <15 on HEADING AND PRIMING TOOL SETTER Procedures Date Code Description Status 10/11/2016 [id number] Mammogram Completed Medical Devices Description No Information Available Encounters Type Date Location Provider Dx Diagnosis Office Visit 11/11/2020 3:00p [facility] Anne-Marie Anderson.OJuancarlos Z48.02 Encounter for removal of sut ures B87.1 Wound myiasis Office Visit 09/30/2020 11:20a [facility] Shankar AndersonOJuancarlos R25.1 Tremor, unspecified R26.81 Unsteadiness on feet R29.6 Repeated falls Office Visit 08/20/2020 10:00a [facility] AFSHIN Waldrop S80.812A Abrasion, left lower leg, in itial encounter Z48.02 Encounter for removal of sut ures Office Visit 05/26/2020 1:40p [facility] AFSHIN Ortega K59.00 Constipation, unspecified R63.0 Anorexia S72.001A Fracture of unsp part of nec k of right femur, init F41.1 Generalized anxiety disorder I48.91 Unspecified atrial fibrillat ion Assessments Date Code Description Provider 11/11/2020 Z48.02 Encounter for removal of sutures Anne-Marie Anderson.OJuancarlos 11/11/2020 B87.1 Wound myiasis Anne-Marie Rivera.OJuancarlos 09/30/2020 R25.1 Tremor, unspecified Lina Starr D.OJuancarlos 09/30/2020 R26.81 Unsteadiness on feet Lina Villa D.OJuancarlos 09/30/2020 R29.6 Repeated falls Anne-Marie Rivera.OJuancarlos 08/20/2020 S80.812A Abrasion, left lower leg, initia l encounter AFSHIN Waldrop 08/20/2020 Z48.02 Encounter for removal of sutures AFSHIN Waldrop 05/26/2020 K59.00 Constipation, unspecified AFSHIN Ortega 05/26/2020 R63.0 Anorexia AFSHIN Ortega 05/26/2020 S72.001A Fracture of unspecif ied part of neck of right femur, initial encounter for closed fracture AFSHIN Ortega 05/26/2020 F41.1 Generalized anxiety disorder AFSHIN Rincon 05/26/2020 I48.91 Unspecified atrial fibrillation AFSHIN Ortega Plan of Treatment No Information Available Functional Status Description No Information Available Mental Status Description No Information Available Referrals Refer to Reason for Referral Status Appt Date Guerline Steen O., MD This is a 70 year old female who has what was felt to be an essential tremor for the past year but this has worsened and bothers her more when it is cold and she can barely hang on to items. She is also unsteady on her feet. Please evaluate and treat. Patient Notified 10/26/2020 [facility] [address] [id number] [phone]
--- OUTSIDE RECORDS SUMMARY | 2020-11-27 15:30 | CCD | Continuity of Care Document ---
Author Author Lyric ANGUIANO D.O. Organization Unknown Address [address] [place] [address] Phone [phone] Care Team Providers Care Caponizer Name Role Phone Lina Anguiano D.O. AUTM Shekhar Dominguez M.D. AUTM [phone] Guerline Steen AUTM [phone] Problems Active Problems Provider Date Infectious colitis, [...] Allergies Reaction Severity Comments Date Sulfa 12/04/2015 Medications Active Medications SIG Qnty Indications Ordering Provide r Date Erythromycin 500mg Tablets DR one tablet by mouth every 6 hours for 7 days 28tabs Lina Fraser D.O. 11/13/2020 Mupirocin 2% Ointment apply to wound on the left lowe leg twice daily until resolved 22gm B87.1 Lina Anguiano D.O. 11/11/2020 Celexa 20mg Tablets 1 by mouth every day 30tabs Lina Anguiano D.O. 11/11/2020 Megestrol Acetate 40mg Tablets one tablet by mouth every 6 hours 120tabs Aby Anderson 04/18/2020 Onetouch Verio Strips use to test blood sugar twice a day 100units Lina Anguiano D.O. 11/2018 360pitouch Ultra 2 w/Device Kit please dispense one glucometer to be used once daily as needed to check blood sugars 1units E11.22 Lina Anguiano D.O. 07/29/2019 Bacid Tablets 1 tab by mouth with meals three times daily 90tabs K21.9 Shankar AndersonOJuancarlos Ondansetron HCL 4mg Tablets 1 tab by mouth every 4 hours nausea 30tabs R11.0 Shankar AndersonOJuancarlos 10/31/2018 Raloxifene HCL 60mg Tablets take 1 [...] per day 100units E11.22 Shankar AndersonOJuancarlos 02/09/2016 Carvedilol 3.125mg Tablets 1 by mouth twice a day 60tabs Shankar AndersonOJuancarlos 12/04 Fluticasone Propionate 50mcg/Act Suspension 2 spray each nostril once a day 48gm Shankar HopkinsOJuancarlos 12/04/2015 Colace 100mg Capsules 1 by mouth every day as needed 30caps Shankar AndersonOJuancarlos 12/04 Onetouch Ultra Blue Strips test strips to be used with glucometer once daily to check blood sugars 75units Shankar AndersonOJuancarlos Pantoprazole Sodium 40mg Tablets D R Take [...] 1 by mouth every day 30tabs Unknown Immunizations CPT Code Status Date Vaccine Lot # U-Pneum Given 08/30/2015 Pneumococcal,Unspecified U-Flu Given 07/30/2015 Influenza,Unspecified Vital Signs Date Vital Result Comment 11/11/2020 2:48pm BP Systolic 154 mmHg BP Diastolic 74 mmHg Height 65.5 inches 5'5.50" Weight 148.00 lb BMI (Body Mass Index) 24.3 kg/m2 Heart Rate 78 /min Respiratory Rate 20 /min Body Temperature 97.4 F O2 % BldC Oximetry 97 % Jackson Body Weight 125 lb 09/30/2020 11:18am BP Systolic 140 mmHg BP Diastolic 84 mmHg Height 65.5 inches 5'5.50" Weight 153.00 lb BMI (Body Mass Index) 25.1 kg/m2 Heart Rate 86 /min Respiratory Rate 18 /min Body Temperature 97.9 F O2 % BldC Oximetry 99 % Jackson Body Weight 125 lb Results Test Acquired Date Facility Test Result H/L Range Note Wound Culture And Gram St 11/11/[address] [address] [phone] Gram Stain (SEE NOTE) Normal 1 Wound Culture FULL REPORT IN L <SEE NOTE> Normal 2 Complete Blood Count 11/06/2020 [facility] Outpatient Test ing (Registration) [address] [place] [address] [phone] White Blood Count 12.1 10 High 4.0-10.0 [...] 0.0 % Normal 0-0 Liver Profile 11/06/2020 [facility] Outpatient Testi ng (Registration) [address] [place] [address] [phone] Ast/Sgot 16 U/L Normal 7-37 Alt/SGPT 15 U/L Normal 12-78 Alkaline Phosphatase 58 U/L Normal 45-117 Bilirubin,Total 0.4 mg/dL Normal 0.2-1.0 Bilirubin,Direct 0.1 mg/dL Normal 0.0-0.2 Total Protein 6.5 GM/DL Normal 6.4-8.2 Albumin 3.2 GM/DL Normal 3.2-5.2 Albumin/Globulin Ratio 1.0 Low 1.2-2.2 Basic Metabolic Profile 11/06/2020 [facility] Outpatient T esting (Registration) [address] [place] [address] [phone] Glucose, Fasting 84 mg/dL Normal 70-100 Blood [...] 9.4 mg/dL Normal 8.8-10.2 Prothrombin Time/Inr 11/06/2020 [facility] Outpatient Test ing (Registration) [address] [place] [address] [phone] Prothrombin Time 54.1 seconds High 12.5-14.3 Inr 5.88 Critical high 4 CBC With Differential 08/10/2020 [facility] Outpatient Joan ting (Registration) [address] [place] [address] [phone] White Blood Count 8.5 10 Normal 4.0-10.0 [...] 36.0-66.0 Lymph % 13.1 % Low 24.0-44.0 Leon % 6.4 % High 0.0-5.0 Eos % 0.8 % Normal 0.0-3.0 Baso % 0.8 % Normal 0.0-1.0 Immature Granulocyte % 0.4 % Normal 0-3.0 Nucleated Red Blood Cell % 0.0 % Normal 0-0 Neutrophils # 6.7 10 Normal 1.5-8.5 Lymph # 1.1 10 Low 1.5-5.0 Leon # 0.6 10 Normal 0.0-0.8 Eos # 0.1 10 Normal 0.0-0.5 Baso # 0.1 10 Normal 0.0-0.2 Prothrombin Time/Inr 08/10/2020 [facility] Outpatient Test ing (Registration) [address] [place] [address] [phone] Prothrombin Time 16.5 seconds High 12.5-14.3 Inr 1.30 Normal 5 Basic Metabolic Profile 08/10/2020 [facility] Outpatient T esting (Registration) [address] [place] [address] [phone] Glucose, Fasting 103 mg/dL High 70-100 Blood [...] Little GFR Left ESRD GFR <15 on ANIMAL NUTRITION CONSULTANT 4 THERAPUTIC HUMAN INR VALUES INDICATIONS NORMAL [...] Little GFR Left ESRD GFR <15 on ANIMAL NUTRITION CONSULTANT Procedures Date Code Description Status 10/11/2016 [id number] Mammogram Completed Medical Devices Description No Information Available Encounters Type Date Location Provider Dx Diagnosis Office Visit 11/11/2020 3:00p Family Medicine [facility] Anne-Marie Anderson.OJuancarlos Z48.02 Encounter for removal of sut ures B87.1 Wound myiasis Office Visit 09/30/2020 11:20a [facility] Shankar AndersonOJuancarlos R25.1 Tremor, unspecified R26.81 Unsteadiness on feet R29.6 Repeated falls Office Visit 08/20/2020 10:00a [facility] AFSHIN Waldrop S80.812A Abrasion, left lower leg, in itial encounter Z48.02 Encounter for removal of sut ures Office Visit 05/26/2020 1:40p [facility] AFSHIN Ortega K59.00 Constipation, unspecified R63.0 Anorexia [...] atrial fibrillation AFSHIN Ortega Plan of Treatment Future Appointment(s):* 11/25/2020 1:20 pm - Lina Anguiano D.O. at [facility] Functional Status Description No Information Available Mental [...] Please evaluate and treat. Patient Notified 10/26/2020 [facility] [address] [place] [address] [phone]
--- OUTSIDE RECORDS SUMMARY | 2020-11-27 15:30 | CCD | Continuity of Care Document ---
Author Author Lyric ANGUIANO D.O. Organization Unknown Address [address] [place] [address] Phone [phone] Care Team Providers Care Contract Officer Name Role Phone Lina Anguiano D.O. AUTM [phone] Shekhar Dominguez M.D. AUTM [phone] Guerline Steen AUTM [phone] Problems Active Problems Provider Date Infectious colitis, [...] Anguiano D.O. On set: 01/07/2016 Screening mammography Lnia Anguiano D.O. Onset: 01/28 Osteoporosis Lina Anguiano [...] F O2 % BldC Oximetry 99 % [place] Body Weight 125 lb 11/11/2020 2:48pm BP Systolic 154 mmHg BP Diastolic 74 mmHg Height 65.5 inches 5'5.50" Weight 148.00 lb BMI (Body Mass Index) 24.3 kg/m2 Heart Rate 78 /min Respiratory Rate 20 /min Body Temperature 97.4 F O2 % BldC Oximetry 97 % [place] Body Weight 125 lb Results Test Acquired Date Facility Test Result H/L Range Note Wound Culture And Gram St 11/11/[address] [id number] [phone] Gram Stain (SEE NOTE) Normal 1 Wound Culture FULL REPORT IN L <SEE NOTE> Normal 2 Complete Blood Count 11/06/2020 [facility] Outpatient Test ing (Registration) [address] [place] [address] [phone] White Blood Count 12.1 10 High 4.0-10.0 [...] 0.0 % Normal 0-0 Liver Profile 11/06/2020 [facility] Outpatient Testi ng (Registration) [address] [place] [address] [phone] Ast/Sgot 16 U/L Normal 7-37 Alt/SGPT 15 U/L Normal 12-78 Alkaline Phosphatase 58 U/L Normal 45-117 Bilirubin,Total 0.4 mg/dL Normal 0.2-1.0 Bilirubin,Direct 0.1 mg/dL Normal 0.0-0.2 Total Protein 6.5 GM/DL Normal 6.4-8.2 Albumin 3.2 GM/DL Normal 3.2-5.2 Albumin/Globulin Ratio 1.0 Low 1.2-2.2 Basic Metabolic Profile 11/06/2020 [facility] Outpatient T esting (Registration) [address] [place] [address] [phone] Glucose, Fasting 84 mg/dL Normal 70-100 Blood [...] 9.4 mg/dL Normal 8.8-10.2 Prothrombin Time/Inr 11/06/2020 [facility] Outpatient Test ing (Registration) [address] [place] [address] [phone] Prothrombin Time 54.1 seconds High 12.5-14.3 Inr 5.88 Critical high 4 CBC With Differential 08/10/2020 [facility] Outpatient Joan ting (Registration) [address] [place] [address] [phone] White Blood Count 8.5 10 Normal 4.0-10.0 [...] 36.0-66.0 Lymph % 13.1 % Low 24.0-44.0 [place] % 6.4 % High 0.0-5.0 Eos % 0.8 % Normal 0.0-3.0 Baso % 0.8 % Normal 0.0-1.0 Immature Granulocyte % 0.4 % Normal 0-3.0 Nucleated Red Blood Cell % 0.0 % Normal 0-0 Neutrophils # 6.7 10 Normal 1.5-8.5 Lymph # 1.1 10 Low 1.5-5.0 [place]y # 0.6 10 Normal 0.0-0.8 Eos # 0.1 10 Normal 0.0-0.5 Baso # 0.1 10 Normal 0.0-0.2 Prothrombin Time/Inr 08/10/2020 [facility] Outpatient Test ing (Registration) [address] [place] [address] [phone] Prothrombin Time 16.5 seconds High 12.5-14.3 Inr 1.30 Normal 5 Basic Metabolic Profile 08/10/2020 [facility] Outpatient T esting (Registration) [address] [place] [address] [phone] Glucose, Fasting 103 mg/dL High 70-100 Blood [...] Little GFR Left ESRD GFR <15 on PV DESIGN ENGINEER 4 THERAPUTIC HUMAN INR VALUES INDICATIONS NORMAL [...] Little GFR Left ESRD GFR <15 on PV DESIGN ENGINEER Procedures Date Code Description Status 10/11/2016 [id number] Mammogram Completed Medical Devices Description No Information Available Encounters Type Date Location Provider Dx Diagnosis Office Visit 11/18/2020 2:40p Family Medicine [facility] Lina Anguiano D.O. B87.1 Wound myiasis F41.1 Generalized anxiety disorder Office Visit 11/11/2020 3:00p [facility] Lina Anguiano D.O. Z48.02 Encounter for removal of sut ures B87.1 Wound myiasis Office Visit 09/30/2020 11:20a [facility] Lina Anguiano D.O. R25.1 Tremor, unspecified R26.81 Unsteadiness on feet R29.6 Repeated falls Office Visit 08/20/2020 10:00a Family [facility] AFSHIN Waldrop S80.812A Abrasion, left lower leg, in itial encounter Z48.02 Encounter for removal of sut ures Office Visit 05/26/2020 1:40p [facility] AFSHIN Ortega K59.00 Constipation, unspecified R63.0 Anorexia S72.001A Fracture of unsp part of nec k of right femur, init F41.1 Generalized anxiety disorder I48.91 Unspecified atrial fibrillat ion Assessments Date Code Description Provider 11/18/2020 B87.1 Wound myiasis Shankar RiveraOJuancarlos 11/18/2020 F41.1 Generalized anxiety disorder Genet Anguiano D.O. 11/11/2020 Z48.02 Encounter for removal of sutures Lina Anguiano D.O. 11/11/2020 B87.1 Wound myiasis Lina hobbs D.O. 09/30/2020 R25.1 Tremor, unspecified Lina Starr D.O. 09/30/2020 R26.81 Unsteadiness on feet Lina Villa D.O. 09/30/2020 R29.6 Repeated falls Lina hobbs D.O. 08/20/2020 S80.812A Abrasion, left lower leg, initia [...] AFSHIN Ortega Plan of Treatment Future Appointment(s):* 11/27/2020 1:20 pm - Lina Anguiano D.O. at [facility] Functional Status Description No Information Available Mental [...] Please evaluate and treat. Patient Notified 10/26/2020 [facility] [address] [place] [address] [phone]
--- OUTSIDE RECORDS SUMMARY | 2020-11-27 15:30 | CCD | Continuity of Care Document ---
Author Author Lyric ANGUIANO D.O. Organization Unknown Address [address] [place] [address] Phone [phone] Care Team Providers Care Field Clinical Engineer Name Role Phone Lina Anguiano D.O. AUTM Shekhar Dominguez M.D. AUTM [phone] Guerline Steen AUTM [phone] Problems Active Problems Provider Date Infectious colitis, [...] every 4 hours nausea 30tabs R11.0 Lina nAguiano D.O. 10/31/2018 Raloxifene HCL 60mg Tablets take [...] F O2 % BldC Oximetry 99 % [place] Body Weight 125 lb 11/11/2020 2:48pm BP Systolic 154 mmHg BP Diastolic 74 mmHg Height 65.5 inches 5'5.50" Weight 148.00 lb BMI (Body Mass Index) 24.3 kg/m2 Heart Rate 78 /min Respiratory Rate 20 /min Body Temperature 97.4 F O2 % BldC Oximetry 97 % [place] Body Weight 125 lb Results Test Acquired Date Facility Test Result H/L Range Note Wound Culture And Gram St 11/11/[address] [id number] [phone] Gram Stain (SEE NOTE) Normal 1 Wound Culture FULL REPORT IN L <SEE NOTE> Normal 2 Istat PT/Inr 11/06/2020 [facility] Outpatient Testi ng (Registration) [address] [place] [address] [phone] iSTAT Protime Seconds 62.5 seconds High 12.1-14. 4 iSTAT Inr 5.7 Critical high Complete Blood Count 11/06/2020 [facility] Outpatient Test ing (Registration) [address] [place] [address] [phone] White Blood Count 12.1 10 High 4.0-10.0 [...] 0.0 % Normal 0-0 Liver Profile 11/06/2020 [facility] Outpatient Testi ng (Registration) [address] [place], [place] 2260[address] [phone] Ast/Sgot 16 U/L Normal 7-37 Alt/SGPT 15 U/L Normal 12-78 Alkaline Phosphatase 58 U/L Normal 45-117 Bilirubin,Total 0.4 mg/dL Normal 0.2-1.0 Bilirubin,Direct 0.1 mg/dL Normal 0.0-0.2 Total Protein 6.5 GM/DL Normal 6.4-8.2 Albumin 3.2 GM/DL Normal 3.2-5.2 Albumin/Globulin Ratio 1.0 Low 1.2-2.2 Basic Metabolic Profile 11/06/2020 [facility] Outpatient T randiing (Registration) [address] [place] [address] [phone] Glucose, Fasting 84 mg/dL Normal 70-100 Blood [...] 9.4 mg/dL Normal 8.8-10.2 Prothrombin Time/Inr 11/06/2020 [facility] Outpatient Test ing (Registration) [address] [place] [address] [phone] Prothrombin Time 54.1 seconds High 12.5-14.3 Inr 5.88 Critical high 4 CBC With Differential 08/10/2020 [facility] Outpatient Joan ting (Registration) [address] [place] [address] [phone] White Blood Count 8.5 10 Normal 4.0-10.0 [...] 36.0-66.0 Lymph % 13.1 % Low 24.0-44.0 [place] % 6.4 % High 0.0-5.0 Eos % 0.8 % Normal 0.0-3.0 Baso % 0.8 % Normal 0.0-1.0 Immature Granulocyte % 0.4 % Normal 0-3.0 Nucleated Red Blood Cell % 0.0 % Normal 0-0 Neutrophils # 6.7 10 Normal 1.5-8.5 Lymph # 1.1 10 Low 1.5-5.0 [place] # 0.6 10 Normal 0.0-0.8 Eos # 0.1 10 Normal 0.0-0.5 Baso # 0.1 10 Normal 0.0-0.2 Prothrombin Time/Inr 08/10/2020 [facility] Outpatient Test ing (Registration) [address] [place] [address] [phone] Prothrombin Time 16.5 seconds High 12.5-14.3 Inr 1.30 Normal 5 Basic Metabolic Profile 08/10/2020 [facility] Outpatient T esting (Registration) [address] [place] [address] [phone] Glucose, Fasting 103 mg/dL High 70-100 Blood [...] Little GFR Left ESRD GFR <15 on BOOSTER STATION OPERATOR 4 THERAPUTIC HUMAN INR VALUES INDICATIONS NORMAL [...] Little GFR Left ESRD GFR <15 on BOOSTER STATION OPERATOR Procedures Date Code Description Status 10/11/2016 [id number] Mammogram Completed Medical Devices Description No Information Available Encounters Type Date Location Provider Dx Diagnosis Office Visit 11/18/2020 2:40p Family [facility] Lina Anguiano D.O. B87.1 Wound myiasis F41.1 Generalized anxiety disorder Office Visit 11/11/2020 3:00p Family [facility] Lina Anguiano D.O. Z48.02 Encounter for removal of sut ures B87.1 Wound myiasis Office Visit 09/30/2020 11:20a Family [facility] Lina Anguiano D.O. R25.1 Tremor, unspecified R26.81 Unsteadiness on feet R29.6 Repeated falls Office Visit 08/20/2020 10:00a [facility] AFSHIN Waldrop S80.812A Abrasion, left lower leg, in itial encounter Z48.02 Encounter for removal of sut ures Office Visit 05/26/2020 1:40p Family [facility] AFSHIN Ortega K59.00 Constipation, unspecified R63.0 Anorexia S72.001A Fracture of unsp part of nec k of right femur, init F41.1 Generalized anxiety disorder I48.91 Unspecified atrial fibrillat ion Assessments Date Code Description Provider 11/18/2020 B87.1 Wound myiasis Lina hobbs D.O. 11/18/2020 F41.1 Generalized anxiety disorder Genet Anguiano D.O. 11/11/2020 Z48.02 Encounter for removal of sutures Lina Anguiano D.O. 11/11/2020 B87.1 Wound myiasis Lina hobbs D.O. 09/30/2020 R25.1 Tremor, unspecified Anne-Marie Mireles.OJuancarlos 09/30/2020 R26.81 Unsteadiness on feet Lina Villa D.O. 09/30/2020 R29.6 Repeated falls Shankar RiveraOJuancarlos 08/20/2020 S80.812A Abrasion, left lower leg, initia [...] 1:20 pm - Lina Anguiano D.O. at [facility] Functional Status Description No Information Available Mental [...] Please evaluate and treat. Patient Notified 10/26/2020 [facility] [address] [place] [address] [phone]
--- OUTSIDE RECORDS SUMMARY | 2020-11-27 15:30 | CCD | Continuity of Care Document ---
Author Author Ans/VSLyric Organization Unknown Address [address] [place] [address] Phone [phone] Care Team Providers Care Animal Science Instructor Name Role Phone ScottLisaEvelioLina ivan DO AUTM Problems Active Problems Provider Date Tremor Sojna Giles M.D. Onset: 10/26/2020 Unsteady gait Sonja Giles M.D. Onset: 10/26/2020 Social History Type Date Description Comments Sex Unknown Allergies, Adverse Reactions, Alerts Active Allergies Reaction Severity Comments Date Sulfa Antibiotics 10/26/2020 Medications Active Medications SIG Qnty Indications Ordering Provide r Date Warfarin Sodium 5mg Tablets Unknown Immunizations Description No Information Available Vital Signs Description No Information Available Results Description No Information Available Procedures Date Code Description Status 11/05/2020 03442 MRI Spine Lumbar W/O Contrast Co mpleted 11/05/2020 34205 MRI Spine Lumbar W/O Contrast Co mpleted 11/05/2020 16967 MRI Brain W/O Contrast Completed 11/05/2020 01751 MRI Brain W/O Contrast Completed Medical Devices Description No Information Available Encounters Type Date Location Provider Dx Diagnosis Office Visit 10/26/2020 2:30p Main office - [place] Sonja Giles M.D. R26.2 Difficulty in walking, not elsewhere classified R25.8 Other abnormal involuntary m ovements M54.5 Low back pain M62.9 Disorder of muscle, unspecif ied Assessments Date Code Description Provider 11/05/2020 R25.8 Other abnormal involuntary movem ents Fatoumata Giles M.D. 11/05/2020 R25.8 Other abnormal involuntary movem ents MRI 11/05/2020 R26.2 Difficulty in walking, not elsew here classified Fatoumata Giles M.D. 11/05/2020 R26.2 Difficulty in walking, not elsew here classified MRI 10/26/2020 R26.2 Difficulty in walking, not elsew here classified Sonja Giles M.D. 10/26/2020 R25.8 Other abnormal involuntary movem ents Sonja Giles M.D. 10/26/2020 M54.5 Low back pain Alon Massey 10/26/2020 M62.9 Disorder of muscle, unspecified Sonja Giles M.D. Plan of Treatment Future Appointment(s):* 12/15/2020 1:00 pm - Adriana Ojeda P.A.-C. at [facility] * 12/11/2020 12:45 pm - EEG at [facility] Functional Status Description No Information Available Mental Status Description No Information Available Referrals Description No Information Available
--- OUTSIDE RECORDS SUMMARY | 2020-11-27 15:30 | CCD | Continuity of Care Document ---
Author Author Lyric ANGUIANO D.O. Organization Unknown Address [address] [place] [address] Phone [phone] Care Team Providers Care Finance Clerk Name Role Phone Lina Anguiano D.O. AUTM [phone] Shekhar Dominguez M.D. AUTM [phone] Guerline Steen AUTM [phone] Problems Active Problems Provider Date Infectious colitis, [...] Lina Anguiano D.O. Onset: 2015 Allergic rhinitis Lian Anguiano D.O. Onset: 2015 Generalized anxiety disorder [...] F O2 % BldC Oximetry 99 % [place] Body Weight 125 lb 11/11/2020 2:48pm BP Systolic 154 mmHg BP Diastolic 74 mmHg Height 65.5 inches 5'5.50" Weight 148.00 lb BMI (Body Mass Index) 24.3 kg/m2 Heart Rate 78 /min Respiratory Rate 20 /min Body Temperature 97.4 F O2 % BldC Oximetry 97 % [place] Body Weight 125 lb Results Test Acquired Date Facility Test Result H/L Range Note Wound Culture And Gram St 11/11/[address] [id number] [phone] Gram Stain (SEE NOTE) Normal 1 Wound Culture FULL REPORT IN L <SEE NOTE> Normal 2 Complete Blood Count 11/06/2020 [facility] Outpatient Test ing (Registration) [address] [place] [address] [phone] White Blood Count 12.1 10 High 4.0-10.0 [...] 0.0 % Normal 0-0 Liver Profile 11/06/2020 [facility] Outpatient Testi ng (Registration) [address] [place] [address] [phone] Ast/Sgot 16 U/L Normal 7-37 Alt/SGPT 15 U/L Normal 12-78 Alkaline Phosphatase 58 U/L Normal 45-117 Bilirubin,Total 0.4 mg/dL Normal 0.2-1.0 Bilirubin,Direct 0.1 mg/dL Normal 0.0-0.2 Total Protein 6.5 GM/DL Normal 6.4-8.2 Albumin 3.2 GM/DL Normal 3.2-5.2 Albumin/Globulin Ratio 1.0 Low 1.2-2.2 Basic Metabolic Profile 11/06/2020 [facility] Outpatient T esting (Registration) [address] [place] [address] [phone] Glucose, Fasting 84 mg/dL Normal 70-100 Blood [...] 9.4 mg/dL Normal 8.8-10.2 Prothrombin Time/Inr 11/06/2020 [facility] Outpatient Test ing (Registration) [address] [place] [address] [phone] Prothrombin Time 54.1 seconds High 12.5-14.3 Inr 5.88 Critical high 4 CBC With Differential 08/10/2020 [facility] Outpatient Joan ting (Registration) [address] [place] [address] [phone] White Blood Count 8.5 10 Normal 4.0-10.0 [...] 36.0-66.0 Lymph % 13.1 % Low 24.0-44.0 [place] % 6.4 % High 0.0-5.0 Eos % 0.8 % Normal 0.0-3.0 Baso % 0.8 % Normal 0.0-1.0 Immature Granulocyte % 0.4 % Normal 0-3.0 Nucleated Red Blood Cell % 0.0 % Normal 0-0 Neutrophils # 6.7 10 Normal 1.5-8.5 Lymph # 1.1 10 Low 1.5-5.0 [place] # 0.6 10 Normal 0.0-0.8 Eos # 0.1 10 Normal 0.0-0.5 Baso # 0.1 10 Normal 0.0-0.2 Prothrombin Time/Inr 08/10/2020 [facility] Outpatient Test ing (Registration) [address] [place] [address] [phone] Prothrombin Time 16.5 seconds High 12.5-14.3 Inr 1.30 Normal 5 Basic Metabolic Profile 08/10/2020 [facility] Outpatient T esting (Registration) [address] [place] [address] [phone] Glucose, Fasting 103 mg/dL High 70-100 Blood [...] Little GFR Left ESRD GFR <15 on MANAGER WEB APPLICATION 4 THERAPUTIC HUMAN INR VALUES INDICATIONS NORMAL [...] Little GFR Left ESRD GFR <15 on MANAGER WEB APPLICATION Procedures Date Code Description Status 10/11/2016 [id number] Mammogram Completed Medical Devices Description No Information Available Encounters Type Date Location Provider Dx Diagnosis Office Visit 11/18/2020 2:40p Family Medicine [facility] Lina Anguiano D.O. B87.1 Wound myiasis F41.1 Generalized anxiety disorder Office Visit 11/11/2020 3:00p [facility] Lina Anguiano D.O. Z48.02 Encounter for removal of sut ures B87.1 Wound myiasis Office Visit 09/30/2020 11:20a [facility] Lina Anguiano D.O. R25.1 Tremor, unspecified R26.81 Unsteadiness on feet R29.6 Repeated falls Office Visit 08/20/2020 10:00a Family [facility] AFSHIN Waldrop S80.812A Abrasion, left lower leg, in itial encounter Z48.02 Encounter for removal of sut ures Office Visit 05/26/2020 1:40p [facility] AFSHIN Ortega K59.00 Constipation, unspecified R63.0 [...] 1:20 pm - Lina Anguiano D.O. at [facility] Functional Status Description No Information Available Mental [...] 10/26/2020 [facility] [address] [place] [address] [phone]
--- OUTSIDE RECORDS SUMMARY | 2020-11-27 15:30 | CCD | Continuity of Care Document ---
Author Author Ans/VSLyric Organization Unknown Address [address] [place] [address] Phone [phone] Care Team Providers Care Travelift Operator Name Role Phone Scott-EvelioLina ivan DO AUTM Problems Active Problems Provider Date Tremor Sonja Giles M.D. Onset: 10/26/2020 Unsteady gait Sonja [...] Information Available Procedures Date Code Description Status 11/18/2020 26405 Sympathetic Skin Responses Compl eted 11/18/2020 85720 Sympathetic Skin Responses Compl eted 11/18/2020 77163 Test Autonomic Nervous System, C ardiovagal Innervation Completed 11/18/2020 45335 Test Autonomic Nervous System, C ardiovagal Innervation Completed 11/05/2020 02017 MRI Spine Lumbar W/O Contrast Co mpleted 11/05/2020 09439 MRI Spine Lumbar W/O Contrast Co mpleted 11/05/2020 24725 MRI Brain W/O Contrast Completed 11/05/2020 01087 MRI Brain W/O Contrast Completed Medical Devices Description No Information Available Encounters Type Date Location Provider Dx Diagnosis Office Visit 10/26/2020 2:30p Main office - [place] Sonja Giles M.D. R26.2 Difficulty in walking, not elsewhere classified R25.8 Other abnormal involuntary m ovements M54.5 Low back pain M62.9 Disorder of muscle, unspecif ied Assessments Date Code Description Provider 11/18/2020 G60.8 Other hereditary and idiopathic neuropathies Sonja Giles M.D. 11/18/2020 G60.8 Other hereditary and idiopathic neuropathies Ans/VS 11/05/2020 R25.8 Other abnormal involuntary movem ents FatoumataAlon LeungDJuancarlos 11/05/2020 R25.8 Other abnormal involuntary movem ents MRI 11/05/2020 R26.2 Difficulty in walking, not elsew here classified Fatoumata Tisha, M.DJuancarlos 11/05/2020 R26.2 Difficulty in walking, not elsew here classified MRI 10/26/2020 R26.2 Difficulty in walking, not elsew here classified Sonja Giles M.D. 10/26/2020 R25.8 Other abnormal involuntary movem ents Sonja Giles M.D. 10/26/2020 M54.5 Low back pain Alon Massey 10/26/2020 M62.9 Disorder of muscle, unspecified Sonja Giles M.D. Plan of Treatment Future Appointment(s):* 12/15/2020 1:00 pm - Adriana Ojeda P.A.-C. at [facility] * 12/11/2020 12:45 pm - EEG at [facility] Functional Status Description No Information Available Mental Status Description No Information Available Referrals Description No Information Available
--- OUTSIDE RECORDS SUMMARY | 2020-11-27 15:31 | CCD | Continuity of Care Document ---
Author Author Lyric OSEGUERA Organization Unknown Address [address] [place] [address] Phone [phone] Care Team Providers Care Bulb Brander Name Role Phone Lina Anguiano DO AUTM [phone] Problems Active Problems Provider Date Tremor Sonja [...] Available Results Description No Information Available Procedures Description No Information Available Medical Devices Description No Information Available Encounters Type Date Location Provider Dx Diagnosis Office Visit 10/26/2020 2:30p Main office - [place] Sonja Giles M.D. R26.2 Difficulty in walking, not elsewhere classified R25.8 Other abnormal involuntary m ovements M54.5 Low back pain M62.9 Disorder of muscle, unspecif ied Assessments Date Code Description Provider 10/26/2020 R26.2 Difficulty in walking, not elsew here classified Sonja Giles M.D. 10/26/2020 R25.8 Other abnormal involuntary movem ents Sonja Giles M.D. 10/26/2020 M54.5 Low back pain Alon Massey 10/26/2020 M62.9 Disorder of muscle, unspecified Sonja Giles M.D. Plan of Treatment Future Appointment(s):* 12/15/2020 1:00 pm - Adriana Ojeda P.A.-C. at [facility] * 12/11/2020 12:45 pm - EEG at [facility] * 11/18/2020 1:00 pm - Ans/VS at [facility] Functional Status Description No Information Available Mental Status Description No Information Available Referrals Description No Information Available
--- OUTSIDE RECORDS SUMMARY | 2020-11-27 15:31 | CCD | Continuity of Care Document ---
Author Author OUMAR Lyric Coates Organization Unknown Address [address] [place] [address] Phone [phone] Care Team Providers Care Roll Mill Operator Name Role Phone Lina Anguiano DO AUTM Problems Active Problems Provider Date [...] Available Procedures Date Code Description Status 11/05/2020 77433 MRI Spine Lumbar W/O Contrast Co mpleted 11/05/2020 44611 MRI Spine Lumbar W/O Contrast Co mpleted 11/05/2020 99929 MRI Brain W/O Contrast Completed 11/05/2020 69771 MRI Brain W/O Contrast Completed Medical Devices Description No Information Available Encounters Type Date Location Provider Dx Diagnosis Office Visit 10/26/2020 2:30p Main office - [place] Sonja Giles M.D. R26.2 Difficulty in walking, [...] 1:00 pm - Adriana Ojeda P.A.-C. at [facility] * 12/11/2020 12:45 pm - EEG at [facility] * 11/18/2020 1:00 pm - Ans/VS at [facility] Functional Status Description No Information Available Mental Status Description No Information Available Referrals Description No Information Available
--- OUTSIDE RECORDS SUMMARY | 2020-11-27 15:31 | CCD | Continuity of Care Document ---
Author Author Lyric ANGUIANO D.O. Organization Unknown Address [address] [place] [address] Phone [phone] Care Team Providers Care Aviation Technician Aircraft Name Role Phone Lina Anguiano D.O. AUTM [phone] Shekhar Dominguez M.D. AUTM [phone] Guerline Steen AUTM [phone] Problems Active Problems Provider Date Infectious colitis, [...] SIG Qnty Indications Ordering Provide r Date Megestrol Acetate 40mg Tablets one tablet by [...] 60mg Tablets take 1 tablet daily 90tabs Lina Anguiano D.O. 07/14 Miralax 3350NF Powder 15 grams by mouth every other day as directed 119gm Shankar AndersonOJuancarlos 04/13/2017 Voltaren 1% Gel 1 gram to right thumb four times a day pain 300gm Shankar AndersonOJuancarlos 01/2017 One Touch Ultra Test Strips to be used wt glucometer once per day 100units E11.22 Shankar AndersonOJuancarlos 02/09/2016 Colace 100mg Capsules 1 by mouth every day as needed 30caps Anne-Marie Anderson.OJuancarlos 12/04 Fluticasone Propionate 50mcg/Act Suspension 2 spray each nostril once a day 48gm Shankar HopkinsOJuancarlos 12/04/2015 Carvedilol 3.125mg Tablets 1 by mouth twice a day 60tabs Shankar AndersonO. 12/04 Onetouch Ultra Blue Strips test strips to be used with glucometer once daily to check blood sugars 75units Shankar AndersonOJuancarlos Pantoprazole Sodium 40mg Tablets D R Take 1 Tablet By Mouth Once Daily 90tabs Shankar AndersonO. Propafenone HCL 300mg Tablets 1 by mouth twice daily Unknown Tylenol 325mg Tablets take 1-2 tabs daily as needed Unknown Fexofenadine HCL 180mg Tablets 1 by mouth every day Unknown Bupropion Hydrochloride ER (XL) 300mg Tablets ER 24HR 1 by mouth every day 90tabs Anne-Marie Anderson.O. Warfarin Sodium 5mg Tablets 1 by mouth every day 30tabs Unknown Immunizations CPT Code Status Date Vaccine Lot # U-Pneum Given 08/30/2015 Pneumococcal,Unspecified U-Flu Given 07/30/2015 Influenza,Unspecified Vital Signs Date Vital Result Comment 09/30/2020 11:18am BP Systolic 140 mmHg BP Diastolic 84 mmHg Height 65.5 inches 5'5.50" Weight 153.00 lb BMI (Body Mass Index) 25.1 kg/m2 Heart Rate 86 /min Respiratory Rate 18 /min Body Temperature 97.9 F O2 % BldC Oximetry 99 % [place] Body Weight 125 lb 08/20/2020 9:50am BP Systolic 144 mmHg BP Diastolic 74 mmHg Height 65.5 inches 5'5.50" Weight 146.00 lb BMI (Body Mass Index) 23.9 kg/m2 Heart Rate 69 /min Respiratory Rate 20 /min Body Temperature 98.3 F O2 % BldC Oximetry 98 % [place] Body Weight 125 lb Results Test Acquired Date Facility Test Result H/L Range Note Complete Blood Count 11/06/2020 [facility] Outpatient Test ing (Registration) [address] [place] [address] [phone] White Blood Count 12.1 10 High 4.0-10.0 [...] 0.0 % Normal 0-0 Liver Profile 11/06/2020 [facility] Outpatient Testi ng (Registration) [address] [place] [address] [phone] Ast/Sgot 16 U/L Normal 7-37 Alt/SGPT 15 U/L Normal 12-78 Alkaline Phosphatase 58 U/L Normal 45-117 Bilirubin,Total 0.4 mg/dL Normal 0.2-1.0 Bilirubin,Direct 0.1 mg/dL Normal 0.0-0.2 Total Protein 6.5 GM/DL Normal 6.4-8.2 Albumin 3.2 GM/DL Normal 3.2-5.2 Albumin/Globulin Ratio 1.0 Low 1.2-2.2 Basic Metabolic Profile 11/06/2020 [facility] Outpatient T esting (Registration) [address] [place] [address] [phone] Glucose, Fasting 84 mg/dL Normal 70-100 Blood Urea Nitrogen 37 mg/dL High 7-18 Creatinine For GFR 5.57 mg/dL High 0.55-1.30 Glomerular Filtration Rate 8.0 Low >39 1 Sodium Level 139 mEq/L Normal 136-145 Potassium Serum 4.0 mEq/L Normal 3.5-5.1 Chloride Level 102 mEq/L Normal 98-107 Carbon Dioxide Level 28 mEq/L Normal 21-32 Anion Gap 9 mEq/L Normal 8-16 Calcium Level 9.4 mg/dL Normal 8.8-10.2 Prothrombin Time/Inr 11/06/2020 [facility] Outpatient Test ing (Registration) [address] [place], [place] [address] [phone] Prothrombin Time 54.1 seconds High 12.5-14.3 Inr 5.88 Critical high 2 CBC With Differential 08/10/2020 [facility] Outpatient Joan ting (Registration) [address] [place] [address] [phone] White Blood Count 8.5 10 Normal 4.0-10.0 [...] 36.0-66.0 Lymph % 13.1 % Low 24.0-44.0 [place] % 6.4 % High 0.0-5.0 Eos % 0.8 % Normal 0.0-3.0 Baso % 0.8 % Normal 0.0-1.0 Immature Granulocyte % 0.4 % Normal 0-3.0 Nucleated Red Blood Cell % 0.0 % Normal 0-0 Neutrophils # 6.7 10 Normal 1.5-8.5 Lymph # 1.1 10 Low 1.5-5.0 [place] # 0.6 10 Normal 0.0-0.8 Eos # 0.1 10 Normal 0.0-0.5 Baso # 0.1 10 Normal 0.0-0.2 Prothrombin Time/Inr 08/10/2020 [facility] Outpatient Test ing (Registration) [address] [place] [address] [phone] Prothrombin Time 16.5 seconds High 12.5-14.3 Inr 1.30 Normal 3 Basic Metabolic Profile 08/10/2020 [facility] Outpatient T esting (Registration) [address] [place] [address] [phone] Glucose, Fasting 103 mg/dL High 70-100 Blood Urea Nitrogen 38 mg/dL High 7-18 Creatinine For GFR 5.99 mg/dL High 0.55-1.30 Glomerular Filtration Rate 7.4 Low >39 4 Sodium Level 140 mEq/L Normal 136-145 Potassium Serum 4.1 mEq/L Normal 3.5-5.1 Chloride Level 108 mEq/L High 98-107 Carbon Dioxide Level 21 mEq/L Normal 21-32 Anion Gap 11 mEq/L Normal 8-16 Calcium Level 8.6 mg/dL Low 8.8-10.2 1 Units are mL/min/1.73 m2 Chronic Kidney Disease Staging per NKF: Stage I & II GFR >=60 Normal to Mildly Decreased Stage III GFR 30-59 Moderately Decreased Stage IV GFR 15-29 Severely Decreased Stage V GFR <15 Very Little GFR Left ESRD GFR <15 on ETHYLENE COMPRESSOR OPERATOR 2 THERAPUTIC HUMAN INR VALUES INDICATIONS NORMAL RANGES PROPHYLAXIS/TREATMENT OF: VENOUS THROMBOSIS 2.0-3.0 PULMONARY EMBOLISM 2.0-3.0 PREVENTION OF SYSTEMIC EMBOLISM FROM: TISSUE HEART VALVES 2.0-3.0 ACUTE MYOCARDIAL INFARCTION 2.0-3.0 VALVULAR HEART DISEASE 2.0-3.0 ATRIAL FIBRILLATION 2.0-3.0 MECHANICAL VALVES(HIGH RISK) 2.5-3.5 RECURRENT MYOCARDIAL INFARCTION 2.5-3.5 3 THERAPUTIC HUMAN INR VALUES INDICATIONS NORMAL RANGES PROPHYLAXIS/TREATMENT OF: VENOUS THROMBOSIS 2.0-3.0 PULMONARY EMBOLISM 2.0-3.0 PREVENTION OF SYSTEMIC EMBOLISM FROM: TISSUE HEART VALVES 2.0-3.0 ACUTE MYOCARDIAL INFARCTION 2.0-3.0 VALVULAR HEART DISEASE 2.0-3.0 ATRIAL FIBRILLATION 2.0-3.0 MECHANICAL VALVES(HIGH RISK) 2.5-3.5 RECURRENT MYOCARDIAL INFARCTION 2.5-3.5 4 Units are mL/min/1.73 m2 Chronic Kidney Disease Staging per NKF: Stage I & II GFR >=60 Normal to Mildly Decreased Stage III GFR 30-59 Moderately Decreased Stage IV GFR 15-29 Severely Decreased Stage V GFR <15 Very Little GFR Left ESRD GFR <15 on ETHYLENE COMPRESSOR OPERATOR Procedures Date Code Description Status 10/11/2016 [id number] Mammogram Completed Medical Devices Description No Information Available Encounters Type Date Location Provider Dx Diagnosis Office Visit 09/30/2020 11:20a Family Medicine [facility] Shankar HouOJuancarlos R25.1 Tremor, unspecified R26.81 Unsteadiness on feet [...] fibrillat ion Assessments Date Code Description Provider 09/30/2020 R25.1 Tremor, unspecified Shankar MirelesOJuancarlos 09/30/2020 R26.81 Unsteadiness on feet Lina Villa D.O. 09/30/2020 R29.6 Repeated falls Shankar iRveraOJuancarlos 08/20/2020 S80.812A Abrasion, left lower leg, initia [...] AFSHIN Ortega Plan of Treatment Future Appointment(s):* 11/11/2020 3:00 pm - Lina Anguiano D.O. at [facility] Functional Status Description No Information Available Mental [...] Please evaluate and treat. Patient Notified 10/26/2020 [facility] [address] [place] [address] [phone]
--- OUTSIDE RECORDS SUMMARY | 2020-11-27 15:31 | CCD | Continuity of Care Document ---
Author Author Lyric ANGUIANO D.O. Organization Unknown Address [address] [place] [address] Phone [phone] Care Team Providers Care Bottling Supervisor Name Role Phone Lina Anguiano D.O. AUTM [phone] Shekhar Dominguez M.D. AUTM [phone] Guerline Steen AUTM [phone] Problems Active Problems Provider Date Infectious colitis, [...] mouth every day as needed 30caps Anne-Marie Andesron.OJuancarlos 12/04 Fluticasone Propionate 50mcg/Act Suspension 2 spray [...] F O2 % BldC Oximetry 99 % [place] Body Weight 125 lb 08/20/2020 9:50am BP Systolic 144 mmHg BP Diastolic 74 mmHg Height 65.5 inches 5'5.50" Weight 146.00 lb BMI (Body Mass Index) 23.9 kg/m2 Heart Rate 69 /min Respiratory Rate 20 /min Body Temperature 98.3 F O2 % BldC Oximetry 98 % [place] Body Weight 125 lb Results Test Acquired Date Facility Test Result H/L Range Note Complete Blood Count 11/06/2020 [facility] Outpatient Test ing (Registration) [address] [place] [address] [phone] White Blood Count 12.1 10 High 4.0-10.0 [...] 0.0 % Normal 0-0 Liver Profile 11/06/2020 [facility] Outpatient Testi ng (Registration) [address] [place] [address] [phone] Ast/Sgot 16 U/L Normal 7-37 Alt/SGPT 15 U/L Normal 12-78 Alkaline Phosphatase 58 U/L Normal 45-117 Bilirubin,Total 0.4 mg/dL Normal 0.2-1.0 Bilirubin,Direct 0.1 mg/dL Normal 0.0-0.2 Total Protein 6.5 GM/DL Normal 6.4-8.2 Albumin 3.2 GM/DL Normal 3.2-5.2 Albumin/Globulin Ratio 1.0 Low 1.2-2.2 Basic Metabolic Profile 11/06/2020 [facility] Outpatient T esting (Registration) [address] [place] [address] [phone] Glucose, Fasting 84 mg/dL Normal 70-100 Blood [...] 9.4 mg/dL Normal 8.8-10.2 Prothrombin Time/Inr 11/06/2020 [facility] Outpatient Test ing (Registration) [address] [place], [place] [address] [phone] Prothrombin Time 54.1 seconds High 12.5-14.3 Inr 5.88 Critical high 2 CBC With Differential 08/10/2020 [facility] Outpatient Joan ting (Registration) [address] [place] [address] [phone] White Blood Count 8.5 10 Normal 4.0-10.0 [...] 36.0-66.0 Lymph % 13.1 % Low 24.0-44.0 [place] % 6.4 % High 0.0-5.0 Eos % 0.8 % Normal 0.0-3.0 Baso % 0.8 % Normal 0.0-1.0 Immature Granulocyte % 0.4 % Normal 0-3.0 Nucleated Red Blood Cell % 0.0 % Normal 0-0 Neutrophils # 6.7 10 Normal 1.5-8.5 Lymph # 1.1 10 Low 1.5-5.0 [place] # 0.6 10 Normal 0.0-0.8 Eos # 0.1 10 Normal 0.0-0.5 Baso # 0.1 10 Normal 0.0-0.2 Prothrombin Time/Inr 08/10/2020 [facility] Outpatient Test ing (Registration) [address] [place] [address] [phone] Prothrombin Time 16.5 seconds High 12.5-14.3 Inr 1.30 Normal 3 Basic Metabolic Profile 08/10/2020 [facility] Outpatient T esting (Registration) [address] [place] [address] [phone] Glucose, Fasting 103 mg/dL High 70-100 Blood [...] Little GFR Left ESRD GFR <15 on SOFTWARE DEPLOYMENT ENGINEER 2 THERAPUTIC HUMAN INR VALUES INDICATIONS NORMAL [...] Little GFR Left ESRD GFR <15 on SOFTWARE DEPLOYMENT ENGINEER Procedures Date Code Description Status 10/11/2016 [id number] Mammogram Completed Medical Devices Description No Information Available Encounters Type Date Location Provider Dx Diagnosis Office Visit 09/30/2020 11:20a Family Medicine [facility] Shankar HouOJuancarlos R25.1 Tremor, unspecified R26.81 Unsteadiness on feet R29.6 Repeated falls Office Visit 08/20/2020 10:00a [facility] AFSHIN Waldrop S80.812A Abrasion, left lower leg, in itial encounter Z48.02 Encounter for removal of sut ures Office Visit 05/26/2020 1:40p [facility] AFSHIN Ortega K59.00 Constipation, unspecified R63.0 Anorexia [...] 3:00 pm - Lina Anguiano D.O. at [facility] Functional Status Description No Information Available [...] Please evaluate and treat. Patient Notified 10/26/2020 [facility] [address] [place] [address] [phone]
--- OUTSIDE RECORDS SUMMARY | 2020-11-27 15:31 | CCD | Continuity of Care Document ---
Author Author Lyric ANGUIANO D.O. Organization Unknown Address [address] [place] [address] Phone [phone] Care Team Providers Care Refinery Operator Crude Unit Name Role Phone Lina Anguiano D.O. AUTM [phone] Shekhar Dominguez M.D. AUTM [phone] Guerline Steen AUTM [phone] Problems Active Problems Provider Date Infectious colitis, [...] resolved 22gm B87.1 Lina Anguiano D.O. 11/11/2020 Megestrol Acetate 40mg [...] 1 by mouth every day 90tabs Shankar AndersonO. Warfarin Sodium 5mg Tablets 1 by mouth [...] F O2 % BldC Oximetry 97 % [place] Body Weight 125 lb 09/30/2020 11:18am BP Systolic 140 mmHg BP Diastolic 84 mmHg Height 65.5 inches 5'5.50" Weight 153.00 lb BMI (Body Mass Index) 25.1 kg/m2 Heart Rate 86 /min Respiratory Rate 18 /min Body Temperature 97.9 F O2 % BldC Oximetry 99 % [place] Body Weight 125 lb Results Test Acquired Date Facility Test Result H/L Range Note Complete Blood Count 11/06/2020 [facility] Outpatient Test ing (Registration) [address] [place] [address] [phone] White Blood Count 12.1 10 High 4.0-10.0 [...] 0-0 Liver Profile 11/06/2020 [facility] Outpatient Testi ng (Registration) [address] [place] [address] [phone] Ast/Sgot 16 U/L Normal 7-37 Alt/SGPT 15 U/L Normal 12-78 Alkaline Phosphatase 58 U/L Normal 45-117 Bilirubin,Total 0.4 mg/dL Normal 0.2-1.0 Bilirubin,Direct 0.1 mg/dL Normal 0.0-0.2 Total Protein 6.5 GM/DL Normal 6.4-8.2 Albumin 3.2 GM/DL Normal 3.2-5.2 Albumin/Globulin Ratio 1.0 Low 1.2-2.2 Basic Metabolic Profile 11/06/2020 [facility] Outpatient T esting (Registration) [address] [place] [address] [id number] [phone] Glucose, Fasting 84 mg/dL Normal 70-100 Blood [...] 8.8-10.2 Prothrombin Time/Inr 11/06/2020 [facility] Outpatient Test ing (Registration) [address] [place] [address] [phone] Prothrombin Time 54.1 seconds High 12.5-14.3 Inr 5.88 Critical high 2 CBC With Differential 08/10/2020 [facility] Outpatient Joan ting (Registration) [address] [place] [address] [phone] White Blood Count 8.5 10 Normal 4.0-10.0 [...] 36.0-66.0 Lymph % 13.1 % Low 24.0-44.0 [place] % 6.4 % High 0.0-5.0 Eos % 0.8 % Normal 0.0-3.0 Baso % 0.8 % Normal 0.0-1.0 Immature Granulocyte % 0.4 % Normal 0-3.0 Nucleated Red Blood Cell % 0.0 % Normal 0-0 Neutrophils # 6.7 10 Normal 1.5-8.5 Lymph # 1.1 10 Low 1.5-5.0 [place] # 0.6 10 Normal 0.0-0.8 Eos # 0.1 10 Normal 0.0-0.5 Baso # 0.1 10 Normal 0.0-0.2 Prothrombin Time/Inr 08/10/2020 [facility] Outpatient Test ing (Registration) [address] [place], [place] [address] [phone] Prothrombin Time 16.5 seconds High 12.5-14.3 Inr 1.30 Normal 3 Basic Metabolic Profile 08/10/2020 [facility] Outpatient T esting (Registration) [address] [place], [place] [address] [phone] Glucose, Fasting 103 mg/dL High 70-100 Blood [...] Little GFR Left ESRD GFR <15 on AUTOMATIC PATTERN EDGER 2 THERAPUTIC HUMAN INR VALUES INDICATIONS NORMAL [...] Little GFR Left ESRD GFR <15 on AUTOMATIC PATTERN EDGER Procedures Date Code Description Status 10/11/2016 [id number] Mammogram Completed Medical Devices Description No Information Available Encounters Type Date Location Provider Dx Diagnosis Office Visit 11/11/2020 3:00p [facility] Shankar AndersonOJuancarlos Z48.02 Encounter for removal of sut ures B87.1 Wound myiasis Office Visit 09/30/2020 11:20a [facility] Lina Anguiano D.O. R25.1 Tremor, unspecified R26.81 Unsteadiness on feet R29.6 Repeated falls Office Visit 08/20/2020 10:00a Family [facility] AFSHIN Waldrop S80.812A Abrasion, left lower leg, in itial encounter Z48.02 Encounter for removal of sut ures Office Visit 05/26/2020 1:40p [facility] AFSHIN Ortega K59.00 Constipation, unspecified R63.0 Anorexia S72.001A Fracture of unsp part of nec k of right femur, init F41.1 Generalized anxiety disorder I48.91 Unspecified atrial fibrillat ion Assessments Date Code Description Provider 11/11/2020 Z48.02 Encounter for removal of sutures Lina Anguiano D.OJuancarlos 11/11/2020 B87.1 Wound myiasis Anne-Marie Rivera.OJuancarlos 09/30/2020 R25.1 Tremor, unspecified Lina Starr D.OJuancarlos 09/30/2020 R26.81 Unsteadiness on feet Anne-Marie Nagy.OJuancarlos 09/30/2020 R29.6 Repeated falls Anne-Marie Rivera.O. 08/20/2020 S80.812A Abrasion, left lower leg, initia [...] 1:20 pm - Lina Anguiano D.O. at [facility] 11/11/2020 - Lina Anguiano D.O.* Z48.02 Encounter for removal of sutures * Follow up:* 2 weeks * B87.1 Wound myiasis* New Medication:* Mupirocin 2 % - apply to wound on the left lowe leg twice daily until resolved * New Labs:* Culture Wound And Gram Stain, Ordered: 11/11/20 Functional Status Description No Information Available Mental [...] Please evaluate and treat. Patient Notified 10/26/2020 [facility] [address] [place] [address] [phone]
--- OUTSIDE RECORDS SUMMARY | 2020-11-27 15:31 | CCD | Continuity of Care Document ---
Author Author Lyric ANGUIANO D.O. Organization Unknown Address [address] [place] [address] Phone [phone] Care Team Providers Care Tubing Mill Setter Name Role Phone Lina Anguiano D.O. AUTM Shekhar Dominguez M.D. AUTM [phone] Guerline Steen AUTM [phone] Problems Active Problems Provider Date Infectious colitis, [...] Tablets 1 by mouth every day 30tabs Shankar AndersonOJuancarlos 11/11/2020 Megestrol Acetate 40mg Tablets one tablet by mouth every 6 hours 120tabs Shankar AndersonO Juancarlos 04/18/2020 Onetouch Verio Strips use to test blood sugar twice a day 100units Lina Anguiano D.O. 11/2018 Onetouch Ultra 2 w/Device Kit please dispense one glucometer to be used once daily as needed to check blood sugars 1units E11.22 Shankar AndersonOJuancarlos 07/29/2019 Bacid Tablets 1 tab by mouth with meals three times daily 90tabs K21.9 Shankar AndersonMike Ondansetron HCL 4mg Tablets 1 tab by [...] F O2 % BldC Oximetry 97 % [place] Body Weight 125 lb 09/30/2020 11:18am BP Systolic 140 mmHg BP Diastolic 84 mmHg Height 65.5 inches 5'5.50" Weight 153.00 lb BMI (Body Mass Index) 25.1 kg/m2 Heart Rate 86 /min Respiratory Rate 18 /min Body Temperature 97.9 F O2 % BldC Oximetry 99 % [place] Body Weight 125 lb Results Test Acquired Date Facility Test Result H/L Range Note Laboratory test finding 11/11/[address] [address] [phone] Gram [address] (SEE NOTE) Normal 1 Complete Blood Count 11/06/2020 [facility] Outpatient Test ing (Registration) [address] [place] [address] [phone] White Blood Count 12.1 10 High 4.0-10.0 [...] 0.0 % Normal 0-0 Liver Profile 11/06/2020 [facility] Outpatient Testi ng (Registration) [address] [place] [address] [phone] Ast/Sgot 16 U/L Normal 7-37 Alt/SGPT 15 U/L Normal 12-78 Alkaline Phosphatase 58 U/L Normal 45-117 Bilirubin,Total 0.4 mg/dL Normal 0.2-1.0 Bilirubin,Direct 0.1 mg/dL Normal 0.0-0.2 Total Protein 6.5 GM/DL Normal 6.4-8.2 Albumin 3.2 GM/DL Normal 3.2-5.2 Albumin/Globulin Ratio 1.0 Low 1.2-2.2 Basic Metabolic Profile 11/06/2020 [facility] Outpatient T esting (Registration) [address] [place] [address] [phone] Glucose, Fasting 84 mg/dL Normal 70-100 Blood Urea Nitrogen 37 mg/dL High 7-18 Creatinine For GFR 5.57 mg/dL High 0.55-1.30 Glomerular Filtration Rate 8.0 Low >39 2 Sodium Level 139 mEq/L Normal 136-145 Potassium Serum 4.0 mEq/L Normal 3.5-5.1 Chloride Level 102 mEq/L Normal 98-107 Carbon Dioxide Level 28 mEq/L Normal 21-32 Anion Gap 9 mEq/L Normal 8-16 Calcium Level 9.4 mg/dL Normal 8.8-10.2 Prothrombin Time/Inr 11/06/2020 [facility] Outpatient Test ing (Registration) [address] [place] [address] [phone] Prothrombin Time 54.1 seconds High 12.5-14.3 Inr 5.88 Critical high 3 CBC With Differential 08/10/2020 [facility] Outpatient Joan ting (Registration) [address] [place] [address] [phone] White Blood Count 8.5 10 Normal 4.0-10.0 [...] 36.0-66.0 Lymph % 13.1 % Low 24.0-44.0 [place] % 6.4 % High 0.0-5.0 Eos % 0.8 % Normal 0.0-3.0 Baso % 0.8 % Normal 0.0-1.0 Immature Granulocyte % 0.4 % Normal 0-3.0 Nucleated Red Blood Cell % 0.0 % Normal 0-0 Neutrophils # 6.7 10 Normal 1.5-8.5 Lymph # 1.1 10 Low 1.5-5.0 [place] # 0.6 10 Normal 0.0-0.8 Eos # 0.1 10 Normal 0.0-0.5 Baso # 0.1 10 Normal 0.0-0.2 Prothrombin Time/Inr 08/10/2020 [facility] Outpatient Test ing (Registration) [address] [place] [address] [phone] Prothrombin Time 16.5 seconds High 12.5-14.3 Inr 1.30 Normal 4 Basic Metabolic Profile 08/10/2020 [facility] Outpatient T esting (Registration) [address] [place] [address] [phone] Glucose, Fasting 103 mg/dL High 70-100 Blood Urea Nitrogen 38 mg/dL High 7-18 Creatinine For GFR 5.99 mg/dL High 0.55-1.30 Glomerular Filtration Rate 7.4 Low >39 5 Sodium Level 140 mEq/L Normal 136-145 Potassium Serum 4.1 mEq/L Normal 3.5-5.1 Chloride Level 108 mEq/L High 98-107 Carbon Dioxide Level 21 mEq/L Normal 21-32 Anion Gap 11 mEq/L Normal 8-16 Calcium Level 8.6 mg/dL Low 8.8-10.2 1 FEW GRAM POSITIVE COCCI IN P AIRS 2 Units are mL/min/1.73 m2 Chronic Kidney Disease Staging per NKF: Stage I & II GFR >=60 Normal to Mildly Decreased Stage III GFR 30-59 Moderately Decreased Stage IV GFR 15-29 Severely Decreased Stage V GFR <15 Very Little GFR Left ESRD GFR <15 on SOCIAL SERVICE TECHNICIAN 3 THERAPUTIC HUMAN INR VALUES INDICATIONS NORMAL RANGES PROPHYLAXIS/TREATMENT OF: VENOUS THROMBOSIS 2.0-3.0 PULMONARY EMBOLISM 2.0-3.0 PREVENTION OF SYSTEMIC EMBOLISM FROM: TISSUE HEART VALVES 2.0-3.0 ACUTE MYOCARDIAL INFARCTION 2.0-3.0 VALVULAR HEART DISEASE 2.0-3.0 ATRIAL FIBRILLATION 2.0-3.0 MECHANICAL VALVES(HIGH RISK) 2.5-3.5 RECURRENT MYOCARDIAL INFARCTION 2.5-3.5 4 THERAPUTIC HUMAN INR VALUES INDICATIONS NORMAL RANGES PROPHYLAXIS/TREATMENT OF: VENOUS THROMBOSIS 2.0-3.0 PULMONARY EMBOLISM 2.0-3.0 PREVENTION OF SYSTEMIC EMBOLISM FROM: TISSUE HEART VALVES 2.0-3.0 ACUTE MYOCARDIAL INFARCTION 2.0-3.0 VALVULAR HEART DISEASE 2.0-3.0 ATRIAL FIBRILLATION 2.0-3.0 MECHANICAL VALVES(HIGH RISK) 2.5-3.5 RECURRENT MYOCARDIAL INFARCTION 2.5-3.5 5 Units are mL/min/1.73 m2 Chronic Kidney Disease Staging per NKF: Stage I & II GFR >=60 Normal to Mildly Decreased Stage III GFR 30-59 Moderately Decreased Stage IV GFR 15-29 Severely Decreased Stage V GFR <15 Very Little GFR Left ESRD GFR <15 on SOCIAL SERVICE TECHNICIAN Procedures Date Code Description Status 10/11/2016 [id number] Mammogram Completed Medical Devices Description No Information Available Encounters Type Date Location Provider Dx Diagnosis Office Visit 11/11/2020 3:00p Family Medicine [facility] Shankar AndersonOJuancarlos Z48.02 Encounter for removal of sut ures B87.1 Wound myiasis Office Visit 09/30/2020 11:20a Family Medicine [facility] Lina Anguiano D.O. R25.1 Tremor, unspecified R26.81 Unsteadiness on feet R29.6 Repeated falls Office Visit 08/20/2020 10:00a Family [facility] AFSHIN Waldrop S80.812A Abrasion, left lower leg, in itial encounter Z48.02 Encounter for removal of sut ures Office Visit 05/26/2020 1:40p Family Medicine [facility] AFSHIN Ortega K59.00 Constipation, unspecified R63.0 Anorexia [...] 1:20 pm - Lina Anguiano D.O. at [facility] Functional Status Description No Information [...] Please evaluate and treat. Patient Notified 10/26/2020 [facility] [address] [place] [address] [phone]
--- OUTSIDE RECORDS SUMMARY | 2020-11-27 15:31 | CCD | Continuity of Care Document ---
Author Author Lyric ANGUIANO D.O. Organization Unknown Address [address] [place] [address] Phone [phone] Care Team Providers Care Manager Talent Acquisition Name Role Phone Lina Anguiano D.O. AUTM Shekhar Dominguez M.D. AUTM [phone] Guerline Steen AUTM [phone] Problems Active Problems Provider Date Infectious colitis, [...] F O2 % BldC Oximetry 97 % [place] Body Weight 125 lb 09/30/2020 11:18am BP Systolic 140 mmHg BP Diastolic 84 mmHg Height 65.5 inches 5'5.50" Weight 153.00 lb BMI (Body Mass Index) 25.1 kg/m2 Heart Rate 86 /min Respiratory Rate 18 /min Body Temperature 97.9 F O2 % BldC Oximetry 99 % [place] Body Weight 125 lb Results Test Acquired Date Facility Test Result H/L Range Note Wound Culture And Gram St 11/11/[address] [address] [phone] Gram Stain (SEE NOTE) Normal 1 Wound Culture FULL REPORT IN L <SEE NOTE> Normal 2 Complete Blood Count 11/06/2020 [facility] Outpatient Test ing (Registration) [address] [place] [phone] White Blood Count 12.1 10 High 4.0-10.0 [...] 0.0 % Normal 0-0 Liver Profile 11/06/2020 [facility] Outpatient Testi ng (Registration) [address] [place] [address] [phone] Ast/Sgot 16 U/L Normal 7-37 Alt/SGPT 15 U/L Normal 12-78 Alkaline Phosphatase 58 U/L Normal 45-117 Bilirubin,Total 0.4 mg/dL Normal 0.2-1.0 Bilirubin,Direct 0.1 mg/dL Normal 0.0-0.2 Total Protein 6.5 GM/DL Normal 6.4-8.2 Albumin 3.2 GM/DL Normal 3.2-5.2 Albumin/Globulin Ratio 1.0 Low 1.2-2.2 Basic Metabolic Profile 11/06/2020 [facility] Outpatient T esting (Registration) [address] [place], [place] [id number] [phone] Glucose, Fasting 84 mg/dL Normal 70-100 Blood [...] 9.4 mg/dL Normal 8.8-10.2 Prothrombin Time/Inr 11/06/2020 [facility] Outpatient Test ing (Registration) [address] [place] [phone] Prothrombin Time 54.1 seconds High 12.5-14.3 Inr 5.88 Critical high 4 CBC With Differential 08/10/2020 [facility] Outpatient Joan ting (Registration) [address] [place] [address] [phone] White Blood Count 8.5 10 Normal 4.0-10.0 [...] 36.0-66.0 Lymph % 13.1 % Low 24.0-44.0 [place] % 6.4 % High 0.0-5.0 Eos % 0.8 % Normal 0.0-3.0 Baso % 0.8 % Normal 0.0-1.0 Immature Granulocyte % 0.4 % Normal 0-3.0 Nucleated Red Blood Cell % 0.0 % Normal 0-0 Neutrophils # 6.7 10 Normal 1.5-8.5 Lymph # 1.1 10 Low 1.5-5.0 [place] # 0.6 10 Normal 0.0-0.8 Eos # 0.1 10 Normal 0.0-0.5 Baso # 0.1 10 Normal 0.0-0.2 Prothrombin Time/Inr 08/10/2020 [facility] Outpatient Test ing (Registration) [address] [place] [address] [phone] Prothrombin Time 16.5 seconds High 12.5-14.3 Inr 1.30 Normal 5 Basic Metabolic Profile 08/10/2020 [facility] Outpatient T esting (Registration) [address] [place] [phone] Glucose, Fasting 103 mg/dL High 70-100 Blood [...] OF GROWTH HEAVY ORGANISM 1: STAPHYLOCOCCUS AUREUS 3 Units are mL/min/1.73 m2 Chronic Kidney Disease Staging per NKF: Stage I & II GFR >=60 Normal to Mildly Decreased Stage III GFR 30-59 Moderately Decreased Stage IV GFR 15-29 Severely Decreased Stage V GFR <15 Very Little GFR Left ESRD GFR <15 on ULTRASOUND SUPERVISOR 4 THERAPUTIC HUMAN INR VALUES INDICATIONS NORMAL [...] Little GFR Left ESRD GFR <15 on ULTRASOUND SUPERVISOR Procedures Date Code Description Status 10/11/2016 [id number] Mammogram Completed Medical Devices Description No Information Available Encounters Type Date Location Provider Dx Diagnosis Office Visit 11/11/2020 3:00p Family Medicine [facility] Lina Anguiano D.O. Z48.02 Encounter for removal of sut ures B87.1 Wound myiasis Office Visit 09/30/2020 11:20a Family [facility] Lina Anguiano D.O. R25.1 Tremor, unspecified R26.81 Unsteadiness on feet R29.6 Repeated falls Office Visit 08/20/2020 10:00a Family Medicine [facility] AFSHIN Waldrop S80.812A Abrasion, left lower leg, in itial encounter Z48.02 Encounter for removal of sut ures Office Visit 05/26/2020 1:40p Family [facility] AFSHIN Ortega K59.00 Constipation, unspecified R63.0 [...] sutures AFSHIN Waldrop 05/26/2020 K59.00 Constipation, unspecified Fab Gandhi, AFSHIN 05/26/2020 R63.0 Anorexia AFSHIN Ortega 05/26/2020 S72.001A Fracture of unspecif ied part of neck of right femur, initial encounter for closed fracture AFSHIN Ortega 05/26/2020 F41.1 Generalized anxiety disorder AFSHIN Rincon 05/26/2020 I48.91 Unspecified atrial fibrillation AFSHIN Ortega Plan of Treatment Future Appointment(s):* 11/25/2020 1:20 pm - Lina Anguiano D.O. at [facility] Functional Status Description No Information Available Mental Status Description No Information Available Referrals Refer to Dr Reason for Referral Status Appt Date Guerline [...] Patient Notified 10/26/2020 [facility] [address] [place] [address] [phone]
--- OUTSIDE RECORDS SUMMARY | 2020-11-27 15:31 | CCD | Continuity of Care Document ---
Author Author Lyric OSEGUERA Organization Unknown Address [address] [place] [address] Phone [phone] Care Team Providers Care Extracorporeal Technician Name Role Phone Lina Anguiano DO AUTM [...] Office Visit 10/26/2020 2:30p Main office - [place] Sonja Giles M.D. R26.2 Difficulty in walking, [...] 1:00 pm - Adriana Ojeda P.A.-C. at [facility] * 12/11/2020 12:45 pm - EEG at [facility] * 11/18/2020 1:00 pm - Ans/VS at [facility] Functional Status Description No Information Available Mental Status Description No Information Available Referrals Description No Information Available
--- OUTSIDE RECORDS SUMMARY | 2020-11-27 15:32 | CCD ---
Author Author [facility] Organization [facility] Address Unknown Phone Unavailable Care Team Providers Care Grocery Bagger Name Role Phone Kocan, J Antoinette WELL SURVEYING ENGINEER Unavailable Unavailable Kocan, J Antoinette WELL SURVEYING ENGINEER Unavailable Unavailable Kocan, J Antoinette WELL SURVEYING ENGINEER Unavailable Unavailable Kocan, J Antoinette WELL SURVEYING ENGINEER Unavailable Unavailable Kocan, J Antoinette WELL SURVEYING ENGINEER Unavailable Unavailable Kocan, J Antoinette WELL SURVEYING ENGINEER Unavailable Unavailable Kocan, J Antoinette WELL SURVEYING ENGINEER Unavailable Unavailable Kocan, J Antoinette WELL SURVEYING ENGINEER Unavailable Unavailable Kocan, J Antoinette WELL SURVEYING ENGINEER Unavailable Unavailable Kocan, J Antoinette WELL SURVEYING ENGINEER Unavailable Unavailable Kocan, J Antoinette WELL SURVEYING ENGINEER Unavailable Unavailable Kocan, J Antoinette WELL SURVEYING ENGINEER Unavailable Unavailable Kocan, J Antoinette WELL SURVEYING ENGINEER Unavailable Unavailable Anneliese LESTER DPM Unavailable Unavailable Anneliese LESTER DPM Unavailable Unavailable Anneliese LESTER DPM Unavailable Unavailable Anneliese LESTER DPM Unavailable Unavailable Anneliese LSETER DPM Unavailable Unavailable Anneliese LESTER DPM Unavailable Unavailable Anneliese LESTER DPM Unavailable Unavailable Anneliese LESTER DPM Unavailable Unavailable Anneliese LESTER DPM Unavailable Unavailable Anneliese LESTER DPM Unavailable Unavailable Anneliese LESTER DPM Unavailable Unavailable Anneliese LESTER DPM Unavailable Unavailable Anneliese LESTER DPM Unavailable Unavailable Anneliese LESTER DPM Unavailable Unavailable MAJAK, R REAGAN DPM Unavailable Unavailable MAJAK, R REAGAN DPM Unavailable Unavailable MAJAK, R REAGAN DPM Unavailable Unavailable MAJAK, R REAGAN DPM Unavailable Unavailable MAJAK, R REAGAN DPM Unavailable Unavailable MAJAK, R REAGAN DPM Unavailable Unavailable MAJAK, R REAGAN DPM Unavailable Unavailable MAJAK, R REAGAN DPM Unavailable Unavailable MAJAK, R REAGAN DPM Unavailable Unavailable MAJAK, R REAGAN DPM Unavailable Unavailable MAJAK, R REAGAN DPM Unavailable Unavailable MAJAK, R REAGAN DPM Unavailable Unavailable MAJAK, R REAGAN DPM Unavailable Unavailable MAJAK, R REAGAN DPM Unavailable Unavailable MAJAK, R REAGAN DPM Unavailable Unavailable MAJAK, R REAGAN DPM Unavailable Unavailable KAISER, ANAYA MD Unavailable Unavailable KAISER, ANAYA MD Unavailable Unavailable KAISER, ANAYA MD Unavailable Unavailable KAISER, ANAYA MD Unavailable Unavailable KAISER, ANAYA MD Unavailable Unavailable KAISER, ANAYA MD Unavailable Unavailable KAISER, ANAYA MD Unavailable Unavailable KAISER, ANAYA MD Unavailable Unavailable KAISER, ANAYA MD Unavailable Unavailable KAISER, ANAYA MD Unavailable Unavailable KAISER, ANAYA MD Unavailable Unavailable KAISER, ANAYA MD Unavailable Unavailable KAISER, ANAYA MD Unavailable Unavailable KAISER, ANAYA MD Unavailable Unavailable KAISER, ANAYA MD Unavailable Unavailable KAISER, ANAYA MD Unavailable Unavailable KAISER, ANAYA MD Unavailable Unavailable KAISER, ANAYA MD Unavailable Unavailable KAISER, ANAYA MD Unavailable Unavailable KAISER, ANAYA MD Unavailable Unavailable KAISER, ANAYA MD Unavailable Unavailable KAISER, ANAYA MD Unavailable Unavailable KAISER, ANAYA MD Unavailable Unavailable KAISER, ANAYA MD Unavailable Unavailable KAISER, ANAYA MD Unavailable Unavailable KAISER, ANAYA MD Unavailable Unavailable KAISER, ANAYA MD Unavailable Unavailable KAISER, ANAYA MD Unavailable Unavailable KAISER, ANAYA MD Unavailable Unavailable KAISER, ANAYA MD Unavailable Unavailable KAISER, ANAYA MD Unavailable Unavailable KAISER, ANAYA MD Unavailable Unavailable KAISER, ANAYA MD Unavailable Unavailable KAISER, ANAYA MD Unavailable Unavailable KAISER, ANAYA MD Unavailable Unavailable KAISER, ANAYA MD Unavailable Unavailable KAISER, ANAYA BEJARANO Unavailable Unavailable KAISER, ANAYA MD Unavailable Unavailable KAISER, ANAYA MD Unavailable Unavailable KAISER, ANAYA MD Unavailable Unavailable Fab Gandhi Unavailable Unavailable Fab Gandhi PA Unavailable Unavailable Hiram, Fab PA Unavailable Unavailable Hiram, Fab PA Unavailable Unavailable Hiram, Fab PA Unavailable Unavailable Hiram, Fab PA Unavailable Unavailable Hiram, Fab PA Unavailable Unavailable Hiram, Fab PA Unavailable Unavailable Hiarm, Fab PA Unavailable Unavailable Hiram, Fab PA Unavailable Unavailable Hiram, Fab PA Unavailable Unavailable Hiram, Fab PA Unavailable Unavailable Hiram, Fab PA Unavailable Unavailable Hiram, Fab PA Unavailable Unavailable Hiram, Fab PA Unavailable Unavailable Hiram, Fab PA Unavailable Unavailable Hiram, Fab PA Unavailable Unavailable Hiram, Fab PA Unavailable Unavailable Hiram, Fab PA Unavailable Unavailable Hiram, Fab PA Unavailable Unavailable Hiram, Fab PA Unavailable Unavailable Hiram, Fab PA Unavailable Unavailable Hiram, Fab PA Unavailable Unavailable Hiram, Fab PA Unavailable Unavailable Hiram, Fab PA Unavailable Unavailable Hiram, Fab PA Unavailable Unavailable Hiram, Fab PA Unavailable Unavailable Hiram, Fab PA Unavailable Unavailable Hiram, Fab PA Unavailable Unavailable Hiram, Fab PA Unavailable Unavailable Hiram, Fab PA Unavailable Unavailable Hiram, Fab PA Unavailable Unavailable Hiram, Fab PA Unavailable Unavailable Hiram, Fab PA Unavailable Unavailable Hiram, Fab PA Unavailable Unavailable Hiram, Fab PA Unavailable Unavailable Hiram, Fab PA Unavailable Unavailable Hiram, Fab PA Unavailable Unavailable Hiram, Fab PA Unavailable Unavailable Hiram, Fab PA Unavailable Unavailable Hiram, Fab PA Unavailable Unavailable Hiram, Fab PA Unavailable Unavailable Hiram, Fab PA Unavailable Unavailable Hiram, Fab PA Unavailable Unavailable Hiram, Fab PA Unavailable Unavailable Hiram, Fab PA Unavailable Unavailable Hiram, Fab PA Unavailable Unavailable Hiram, Fab PA Unavailable Unavailable ANDREWS-LEONORA, ERIC DO Unavailable Unavailable ANDREWS-LEONORA, ERIC DO Unavailable Unavailable ANDREWS-LEONORA, ERIC DO Unavailable Unavailable ANDREWS-LEONORA, ERIC DO Unavailable Unavailable ANDREWS-LEONORA, ERIC DO Unavailable Unavailable ANDREWS-LEONORA, ERIC DO Unavailable Unavailable ANDREWS-LEONORA, ERIC DO Unavailable Unavailable ANDREWS-LEONORA, ERIC DO Unavailable Unavailable ANDREWS-LEONORA, ERIC DO Unavailable Unavailable ANDREWS-LEONORA, ERIC DO Unavailable Unavailable ANDREWS-LEONORA, ERIC DO Unavailable Unavailable ANDREWS-LEONORA, ERIC DO Unavailable Unavailable ANDREWS-LEONORA, ERIC DO Unavailable Unavailable ANDREWS-LEONORA, ERIC DO Unavailable Unavailable ANDREWS-LEONORA, ERIC DO Unavailable Unavailable ANDREWS-LEONORA, ERIC DO Unavailable Unavailable ANDREWS-LEONORA, ERIC DO Unavailable Unavailable ANDREWS-LEONORA, ERIC DO Unavailable Unavailable ANDREWS-LEONORA, ERIC DO Unavailable Unavailable ANDREWS-LEONORA, ERIC DO Unavailable Unavailable ANDREWS-LEONORA, ERIC DO Unavailable Unavailable ANDREWS-LEONORA, ERIC DO Unavailable Unavailable ANDREWS-LEONORA, ERIC DO Unavailable Unavailable ANDREWS-LEONORA, ERIC DO Unavailable Unavailable ANDREWS-LEONORA, ERIC DO Unavailable Unavailable ANDREWS-LEONORA, ERIC DO Unavailable Unavailable ANDREWS-LEONORA, ERIC DO Unavailable Unavailable ANDREWS-LEONORA, ERIC DO Unavailable Unavailable ANDREWS-LEONORA, ERIC DO Unavailable Unavailable ANDREWS-LEONORA, ERIC DO Unavailable Unavailable ANDREWS-LEONORA, ERIC DO Unavailable Unavailable ANDREWS-LEONORA, ERIC DO Unavailable Unavailable ANDREWS-LEONORA, ERIC DO Unavailable Unavailable ANDREWS-LEONORA, ERIC DO Unavailable Unavailable ANDREWS-LEONORA, ERIC DO Unavailable Unavailable ANDREWS-LEONORA, ERIC DO Unavailable Unavailable ANDREWS-LEONORA, ERIC DO Unavailable Unavailable ANDREWS-LEONORA, ERIC DO Unavailable Unavailable ANDREWS-LEONORA, ERIC DO Unavailable Unavailable ANDREWS-LEONORA, ERIC DO Unavailable Unavailable ANDREWS-LEONORA, ERIC DO Unavailable Unavailable ANDREWS-LEONORA, ERIC DO Unavailable Unavailable ANDREWS-LEONORA, ERIC DO Unavailable Unavailable ANDREWS-LEONORA, ERIC DO Unavailable Unavailable ANDREWS-LEONORA, ERIC DO Unavailable Unavailable ANDREWS-LEONORA, ERIC DO Unavailable Unavailable ANDREWS-LEONORA, ERIC DO Unavailable Unavailable ANDREWS-LEONORA, ERIC DO Unavailable Unavailable ANDREWS-LEONORA, ERIC DO Unavailable Unavailable ANDREWS-LEONORA, ERIC DO Unavailable Unavailable ANDREWS-LEONORA, ERIC DO Unavailable Unavailable ANDREWS-LEONORA, ERIC DO Unavailable Unavailable ANDREWS-LEONORA, ERIC DO Unavailable Unavailable ANDREWS-LEONORA, ERIC DO Unavailable Unavailable ANDREWS-LEONORA, ERIC DO Unavailable Unavailable ANDREWS-LEONORA, ERIC DO Unavailable Unavailable ANDREWS-LEONORA, ERIC DO Unavailable Unavailable ANDREWS-LEONORA, ERIC DO Unavailable Unavailable ANDREWS-LEONORA, ERIC DO Unavailable Unavailable ANDREWS-LEONORA, ERIC DO Unavailable Unavailable ANDREWS-LEONORA, ERIC DO Unavailable Unavailable ANDREWS-LEONORA, ERIC DO Unavailable Unavailable ANDREWS-LEONORA, ERIC DO Unavailable Unavailable ANDREWS-LEONORA, ERIC DO Unavailable Unavailable ANDREWS-LEONORA, ERIC DO Unavailable Unavailable ANDREWS-LEONORA, ERIC DO Unavailable Unavailable ANDREWS-LEONORA, ERIC DO Unavailable Unavailable ANDREWS-LEONORA, ERIC DO Unavailable Unavailable ANDREWS-LEONORA, ERIC DO Unavailable Unavailable ANDREWS-LEONORA, ERIC DO Unavailable Unavailable ANDREWS-LEONORA, ERIC DO Unavailable Unavailable ANDREWS-LEONORA, ERIC DO Unavailable Unavailable ANDREWS-LEONORA, ERIC DO Unavailable Unavailable ANDREWS-LEONORA, ERIC DO Unavailable Unavailable ANDREWS-LEONORA, ERIC DO Unavailable Unavailable ANDREWS-LEONORA, ERIC DO Unavailable Unavailable ANDREWS-LEONORA, ERIC DO Unavailable Unavailable ANDREWS-LEONORA, ERIC DO Unavailable Unavailable ANDREWS-LEONORA, ERIC DO Unavailable Unavailable ANDREWS-LEONORA, ERIC DO Unavailable Unavailable ANDREWS-LEONORA, ERIC DO Unavailable Unavailable ANDREWS-LEONORA, ERIC DO Unavailable Unavailable AGNIESZKA RICKS MD Unavailable Unavailable RAMBOAGNIESZKA MD Unavailable Unavailable RAMBOAGNIESZKA MD Unavailable Unavailable RAMBOAGNIESZKA MD Unavailable Unavailable RAMBOAGNIESZKA MD Unavailable Unavailable RAMBOAGNIESZKA MD Unavailable Unavailable RAMBOAGNIESZKA MD Unavailable Unavailable RAMBOAGNIESZKA MD Unavailable Unavailable AGNIESZKA RICKS MD Unavailable Unavailable AGNIESZKA RICKS MD Unavailable Unavailable AGNIESZKA RICKS MD Unavailable Unavailable AGNIESZKA RICKS MD Unavailable Unavailable AGNIESZKA RICKS MD Unavailable Unavailable RAMBOAGNIESZKA MD Unavailable Unavailable AGNIESZKA RICKS MD Unavailable Unavailable AGNIESZKA RICKS MD Unavailable Unavailable AGNIESZKA RICKS MD Unavailable Unavailable RAMBOAGNIESZKA MD Unavailable Unavailable RAMBOAGNIESZKA MD Unavailable Unavailable RAMBOAGNIESZKA MD Unavailable Unavailable RAMBOAGNIESZKA MD Unavailable Unavailable RAMBOAGNIESZKA MD Unavailable Unavailable RAMBO, AGNIESZKA BEJARANO Unavailable Unavailable RAMBO, AARON MD Unavailable Unavailable RAMBO, AARON MD Unavailable Unavailable RAMBO, AARON MD Unavailable Unavailable RAMBO, AARON MD Unavailable Unavailable RAMBO, AARON MD Unavailable Unavailable RAMBO, AARON MD Unavailable Unavailable RAMBO, AARON MD Unavailable Unavailable RAMBO, AARON MD Unavailable Unavailable RAMBO, AARON MD Unavailable Unavailable RAMBO, AARON MD Unavailable Unavailable RAMBO, AARON MD Unavailable Unavailable RAMBO, AARON MD Unavailable Unavailable RAMBO, AARON MD Unavailable Unavailable RAMBO, AARON MD Unavailable Unavailable RAMBO, AARON MD Unavailable Unavailable RAMBO, AARON MD Unavailable Unavailable RAMBO, AARON MD Unavailable Unavailable RAMBO, AARON MD Unavailable Unavailable RAMBO, AARON MD Unavailable Unavailable RAMBO, AARON MD Unavailable Unavailable RAMBO, AARON MD Unavailable Unavailable RAMBO, AARON MD Unavailable Unavailable RAMBO, AARON MD Unavailable Unavailable RAMBO, AGNIESZKA MD Unavailable Unavailable RAMBO, AGNIESZKA MD Unavailable Unavailable RAMBO, AARON MD Unavailable Unavailable RAMBO, AGNIESZKA MD Unavailable Unavailable RAMBO, AGNIESZKA MD Unavailable Unavailable RAMBO, AGNIESZKA MD Unavailable Unavailable RAMBO, AGNIESZKA MD Unavailable Unavailable RAMBO, AGNIESZKA MD Unavailable Unavailable O'jose francisco, A Pradip PA Unavailable Unavailable O'jose francisco, A Pradip PA Unavailable Unavailable O'jose francisco, A Pradip PA Unavailable Unavailable O'jose francisco, A Pradip PA Unavailable Unavailable O'jose francisco, A Pradip PA Unavailable Unavailable O'jose francisco, A Pradip PA Unavailable Unavailable O'jose francisco, A Pradip PA Unavailable Unavailable O'jose francisco, A Pradip PA Unavailable Unavailable O'jose francisco, A Pradip PA Unavailable Unavailable O'jose francisco, A Pradip PA Unavailable Unavailable O'jose francisco, A Pradip PA Unavailable Unavailable O'jose francisco, A Pradip PA Unavailable Unavailable O'jose francisco, A Pradip PA Unavailable Unavailable O'jose francisco, A Pradip PA Unavailable Unavailable O'jose francisco, A Pradip PA Unavailable Unavailable O'jose francisco, A Pradip PA Unavailable Unavailable O'jose francisco, A Pradip PA Unavailable Unavailable O'jose francisco, A Pradip PA Unavailable Unavailable O'jose francisco, A Pradip PA Unavailable Unavailable O'jose francisco, A Pradip PA Unavailable Unavailable O'jose francisco, A Pradip PA Unavailable Unavailable O'jose francisco, A Pradip PA Unavailable Unavailable O'jose francisco, A Pradip PA Unavailable Unavailable O'jose francisco, A Pradip PA Unavailable Unavailable O'jose francisco, A Pradip PA Unavailable Unavailable O'jose francisco, A Pradip PA Unavailable Unavailable O'jose francisco, A Pradip PA Unavailable Unavailable O'jose francisco, A Pradip PA Unavailable Unavailable O'jose francisco, A Pradip PA Unavailable Unavailable O'jose francisco, A Pradip PA Unavailable Unavailable O'jose francisco, A Pradip PA Unavailable Unavailable O'jose francisco, A Pradip PA Unavailable Unavailable Re-disclosure Warning The records that you are about to access may contain information from federally-assisted alcohol or drug abuse programs. If such information is present, then the following federally mandated warning applies: This information has been disclosed to you from records protected by federal confidentiality rules (42 CFR part 2). The federal rules prohibit you from making any further disclosure of this information unless further disclosure is expressly permitted by the written consent of the person to whom it pertains or as otherwise permitted by 42 CFR part 2. A general authorization for the release of medical or other information is NOT sufficient for this purpose. The Federal rules restrict any use of the information to criminally investigate or prosecute any alcohol or drug abuse patient.The records that you are about to access may contain highly sensitive health information, the redisclosure of which is protected by Article 27-F of the [facility] Public Health law. If you continue you may have access to information: Regarding HIV / AIDS; Provided by facilities licensed or operated by the [facility] Office of Mental Health; or Provided by the [facility] Office for People With Developmental Disabilities. If such information is present, then the following [facility] mandated warning applies: This information has been disclosed to you from confidential records which are protected by state law. State law prohibits you from making any further disclosure of this information without the specific written consent of the person to whom it pertains, or as otherwise permitted by law. Any unauthorized further disclosure in violation of state law may result in a fine or [place] [facility] sentence or both. A general authorization for the release of medical or other information is NOT sufficient authorization for further disc losure. Family History Family Member Name Family Member Gender Family Member Status Date o f Status Description Data Source(s) Unknown Female Problem [facility] ([facility], ) Unknown Female Problem [facility] ([facility], ) Unknown Male Problem [facility] ([facility]) Unknown Female Problem [facility] ([facility] Unknown Female Problem [facility] ([facility]) Unknown Female Problem [facility] ([facility]) Unknown Male Problem [facility] ([facility] Encounters Encounter Providers Location Date Indications Data Source(s ) Outpatient Attender: ERIC PALACIOS [facility] 11/18/2020 01:40:00 PM EST [facility] Outpatient Attender: ERIC PALACIOS [facility] 11/11/2020 02:00:00 PM EST [facility] ([facility]) [facility]patient [email or web address] 11/09/2020 12:00:00 AM EST [facility] Outpatient [email or web address] 11/06/2020 12:00:00 AM EST [facility] Outpatient Attender: ANAYA SAAB MD Main office - [facility] 10/26/2020 01:30:00 PM EST [facility] ([facility] Outpatient [email or web address] 10/21/2020 12:00:00 AM EST [facility] Outpatient Attender: Antoinette RODRIGUEZ [email or web address] 2019 12:00:00 AM EST - 10/07/2020 04:30:16 PM EST [facility] Outpatient [email or web address] 10/07/2020 12:00:00 AM EST [facility] Outpatient [email or web address] 10/05/2020 11:18:43 AM EST [facility] Outpatient Attender: ERIC PALACIOS DO [facility] 09/30/2020 10:20:00 AM EST [facility] ([facility]) Outpatient [email or web address] 09/23/2020 12:00:00 AM EST [facility] Outpatient [email or web address] 09/16/2020 12:00:00 AM [facility] Outpatient [email or web address] 09/09/2020 12:00:00 AM EST [facility] Outpatient [email or web address] 09/02/2020 12:00:00 AM EST [facility]patient [email or web address] 08/26/2020 10:53 :12 AM EDT - 08/26/2020 11:10:16 AM EDT [facility] Outpatient [email or web address] 08/26/2020 10:52 :49 AM EDT - 08/26/2020 11:01:00 AM EDT [facility] Outpatient Attender: Pradip PEPE [facility] 08/20/2020 10:00:00 AM EDT [facility] ([facility]) Outpatient Attender: AGNIESZKA RICKS MD [email or web address] 0 12:00:00 AM EDT - 08/19/2020 12:08:56 PM EDT [facility] Outpatient Attender: REAGAN LESTER [facility] 07/31 10:15:00 AM EDT [facility] ([facility]patient [email or web address] 08/12/2020 12:00:00 AM EDT [facility] Outpatient [email or web address] 07/29/2020 12:00:00 AM EDT [facility] Outpatient [email or web address] 07/17/2020 12:00:00 AM EDT [facility] Outpatient 07/13/2020 12:00:00 AM Health system Outpatient [email or web address] 06/05/2020 12:00:00 AM EDT [facility] Outpatient Attender: Fab [facility] 05/26/2020 01:40:00 PM EDT [facility] ([facility]) Outpatient Attender: Fab [facility] 04/16/2020 11:20:00 AM EDT [facility] ([facility]) Outpatient [email or web address] 04/10/2020 12:00:00 AM EDT [facility] Outpatient [email or web address] 02/21/2020 12:00:00 AM EDT [facility] Outpatient [email or web address] 01/31/2020 12:00:00 AM EDT [facility] Outpatient [email or web address] 01/24/2020 08:42:39 AM EDT [facility] Outpatient [email or web address] 01/10/2020 12:00:00 AM EDT [facility]patient [email or web address] 12/25/2019 08:54:16 AM EST [facility] Outpatient [email or web address] 12/18/2019 12:00:00 AM EST [facility] Outpatient [email or web address] 11/20/2019 12:00:00 AM EST [facility]patient [email or web address] 10/21/2019 10:15:58 AM EST [facility] Outpatient [email or web address] 10/11/2019 12:00:00 AM EST [facility] Medications Medication Brand Name Start Date Product Form Dose Route Admi nistrative Instructions Pharmacy Instructions Status Indications Reaction Description Data Source(s) 2 % 11/18/2020 12:00:00 AM EST ointment 22 APPLY TO WOUND ON LEFT LOWER LEG TWICE A DAY UNTIL RESOLVED APPLY TO WOUND ON LEFT LOWER LEG TWICE A DAY UNTIL RESOLVED SOLD: 11/20/2020 [facility] 500 mg 11/13/2020 12:00:00 AM EST tablet,delayed release (DR/EC) 28 TAKE ONE TABLET BY MOUTH EVERY 6 HOURS FOR 7 DAYS TAKE ONE TABLET BY MOUTH EVERY 6 HOURS FOR 7 DAYS SOLD: 11/14/2020 [facility] Erythromycin 500 MG Delayed Release Oral Tablet Erythromycin 11/13/2020 12:00:00 AM EST ORAL completed [facility] ([facility]) Citalopram 20 MG Oral Tablet CITALOPRAM HYDROBROMIDE 11/12/2020 12:00:00 AM EST tablet 30 TAKE ONE TABLET BY MOUTH EVERY D AY TAKE ONE TABLET BY MOUTH EVERY DAY SOLD: 11/14/2020 [facility] 2 % 11/11/2020 12:00:00 AM EST ointment 22 APPLY TO WOULD LEFT LOWER LEG TWO TIMES A DAY UNTIL RESOLVED APPLY TO WOULD LEFT LOWER LEG TWO TIMES A DAY UNTIL RESOLVED SOLD: 11/12/2020 [facility] Mupirocin 0.02 MG/MG Topical Ointment Mupirocin 11/11/2020 12:00:00 AM EST active [facility] ([facility]) Citalopram 20 MG Oral Tablet [Celexa] Celexa 11/11/2020 12:00:00 AM EST ORAL active [facility] ([facility]) 40 mg 11/06/2020 12:00:00 AM EST tablet 120 TAKE ONE TABLET BY MOUTH EVERY 6 HOURS TAKE ONE TABLET BY MOUTH EVERY 6 HOURS SOLD: 11/08/2020 [facility] 500 unit/gram 10/31/2020 12:00:00 AM EST ointment 28 APPLY TOPICALLY TO AFFECTED AREAS TWO TIMES A DAY APPLY TOPICALLY TO AFFECTED AREAS TWO TI MES A DAY SOLD: 11/05/2020 [facility] apixaban 5 MG Oral Tablet Apixaban (ELIQUIS) 5 MG TABS tablet Apixaban (ELIQUIS) 5 MG TABS tablet 10/07/2020 12:00:00 AM EST 5 mg Oral active Atrial fibrillation Take 1 tablet (5 mg total) by mouth 2 (t wo) times a day [facility] Atrial fibrillation 500 mg 09/22/2020 12:00:00 AM EST capsule 4 TAKE FOUR CAPSULES BY MOUTH 1 HOUR PRIOR TO APPOINTMENT TAKE FOUR CAPSULES BY MOUTH 1 HOUR PRIOR TO APPOINTMENT SOLD: 09/26/2020 [facility] pantoprazole 40 MG Delayed Release Oral Tablet PANTOPRAZOLE SODIUM 09/15/2020 12:00:00 AM EST tablet,delayed release (DR/EC) 90 T YOUNG 1 TABLET BY MOUTH ONCE DAILY TAKE 1 TABLET BY MOUTH ONCE DAILY SOLD: 09/22/2020 [facility] 300 mg 06/06/2020 12:00:00 AM EDT tablet 180 TAKE ONE TABLET BY MOUTH TWICE A DAY TAKE ONE TABLET BY MOUTH TWICE A DAY SOLD: 09/03/2020 [facility] 300 mg 06/06/2020 12:00:00 AM EDT tablet 180 TAKE ONE TABLET BY MOUTH TWICE A DAY TAKE ONE TABLET BY MOUTH TWICE A DAY SOLD: 06/17/2020 [facility] Propafenone Hydrochloride 300 MG Oral Ta blet propafenone (RYTHMOL) 300 MG tablet propafenone (RYTHMOL) 300 MG tablet 06/05/2020 12:00:00 AM EDT 300 mg Oral active Take 1 tablet (300 mg total) by mouth 2 (two) times a day [facility] Megestrol Acetate 40 MG Oral Tablet megestrol (MEGACE) 40 MG tablet megestrol (MEGACE) 40 MG tablet 06/02/2020 12:00:00 AM EDT 4 {tbl} Oral active Take 4 tablets by mouth [facility] 250 mg 06/01/2020 12:00:00 AM EDT tablet 3 TAKE ONE TABLET BY MOUTH EVERY DAY FOR 3 DAYS TAKE ONE TABLET BY MOUTH EVERY DAY FOR 3 DAYS SOLD: 06/02/2020 [facility] Warfarin Sodium 1 MG Oral Tablet WARFARIN SODIUM 05/20/2020 12:0 0:00 AM EDT tablet 60 TAKE 1-2 TABLETS BY MOUTH ONCE D AILY (TAKE WITH 3MG TAB) TAKE 1-2 TABLETS BY MOUTH ONCE DAILY (TAKE WITH 3MG TAB) SOLD: 07/17/2020 [facility] 1 mg 05/20/2020 12:00:00 AM EDT tablet 60 TAKE 1-2 TABLETS BY MOUTH ONCE DAILY (TAKE WITH 3MG TAB) TAKE 1-2 TABLETS BY MOUTH ONCE DAILY (TA KE WITH 3MG TAB) SOLD: 05/22/2020 [facility] 3 mg 04/28/2020 12:00:00 AM EDT tablet 90 TAKE ONE TABLET BY MOUTH EVERY DAY TAKE ONE TABLET BY MOUTH EVERY DAY SOLD: 07/17/2020 [facility] 3 mg 04/28/2020 12:00:00 AM EDT tablet 90 TAKE ONE TABLET BY MOUTH EVERY DAY TAKE ONE TABLET BY MOUTH EVERY DAY SOLD: 04/29/2020 [facility] Warfarin Sodium 3 MG Oral Tablet warfarin (COUMADIN) 3 MG tablet warfarin (COUMADIN) 3 MG tablet 04/27/2020 12:00:00 AM EDT 3 mg Oral active Take 1 tablet (3 mg total) by mouth daily [facility] 40 mg 04/18/2020 12:00:00 AM EDT tablet 59 TAKE ONE TABLET BY MOUTH EVERY 6 HOURS TAKE ONE TABLET BY MOUTH EVERY 6 HOURS SOLD: 04/24/2020 [facility] Megestrol Acetate 40 MG Oral Tablet Megestrol Acetate 03/31 12:00:00 AM EDT ORAL active [facility] ([facility]) 4 mg 04/16/2020 12:00:00 AM EDT tablet 30 TAKE ONE TABLET BY MOUTH EVERY 4 HOURS FOR NAUSEA TAKE ONE TABLET BY MOUTH EVERY 4 HOURS FOR NAUSEA SOLD : 07/31/2020 [facility] 4 mg 04/16/2020 12:00:00 AM EDT tablet 30 TAKE ONE TABLET BY MOUTH EVERY 4 HOURS FOR NAUSEA TAKE ONE TABLET BY MOUTH EVERY 4 HOURS FOR NAUSEA SOLD : 04/19/2020 [facility] 1 ML heparin sodium, porcine 1000 UNT/ML Injection Heparin Sodium, Porcine, (HEPARIN, PORCINE,) 1000 UNIT/ML injection Heparin Sodium, Porcine, (HEPARIN, PORCINE,) 1000 UNIT/ML injection 04/13/2020 12:00:00 AM EDT active Heparin Sodium (Porcine) 1,000 Units/mL [facility] 5 mg 04/02/2020 12:00:00 AM EDT tablet 60 TAKE TWO TABLETS BY MOUTH EVERY 4 HOURS NEEDED FOR SEVERE PAIN MAXIMUM DAILY DOSE = 12 TABLETS TAKE TWO TABLETS BY MOUTH EVERY 4 HOURS NEEDED FOR SEVERE PAIN MAXIMUM DAILY DOSE = 12 TABLETS SOLD: 04/06/2020 [facility] 3 mg 04/02/2020 12:00:00 AM EDT tablet 14 TAKE ONE TABLET BY MOUTH EVERY DAY TAKE ONE TABLET BY MOUTH EVERY DAY SOLD: 04/06/2020 [facility] carvedilol 12.5 MG Oral Tablet CARVEDILOL 04/02/2020 12:00:00 AM EDT tablet 60 TAKE ONE TABLET BY MOUTH TWICE A DAY TAKE ONE TABLET BY MOUT H TWICE A DAY SOLD: 04/06/2020 [facility] carvedilol 12.5 MG Oral Tablet CARVEDILOL 01/22/2020 12:00:00 AM EDT tablet 180 TAKE 1 TABLET BY MOUTH TWO TIMES A DAY WITH MEALS TAKE 1 TABLET BY MOUTH TWO TIMES A DAY WITH MEALS SOLD: 06/19/2020 [facility] carvedilol 12.5 MG Oral Tablet CARVEDILOL 01/22/2020 12:00:00 AM EDT tablet 180 TAKE 1 TABLET BY MOUTH TWO TIMES A DAY WITH MEALS TAKE 1 TABLET BY MOUTH TWO TIMES A DAY WITH MEALS SOLD: 09/03/2020 [facility] carvedilol 12.5 MG Oral Tablet CARVEDILOL 01/22/2020 12:00:00 AM EDT tablet 180 TAKE 1 TABLET BY MOUTH TWO TIMES A DAY WITH MEALS TAKE 1 TABLET BY MOUTH TWO TIMES A DAY WITH MEALS SOLD: 01/24/2020 [facility] 40 mg 01/09/2020 12:00:00 AM EDT tablet,delayed release (DR/EC) 90 TAKE 1 TABLET BY MOUTH ONCE DAILY TAKE 1 TABLET BY MOUTH ONCE DAILY SOLD: 01/18/2020 [facility] 40 mg 01/09/2020 12:00:00 AM EDT tablet,delayed release (DR/EC) 90 TAKE 1 TABLET BY MOUTH ONCE DAILY TAKE 1 TABLET BY MOUTH ONCE DAILY SOLD: 06/19/2020 [facility] carvedilol 12.5 MG Oral Tablet carvedilol (COREG) 12.5 MG tablet carvedilol (COREG) 12.5 MG tablet 12/20/2019 12:00:00 AM EST 12.5 mg Oral active Take 1 tablet (12.5 mg total) by mouth 2 (two) times a day with meals [facility] 5 mg 12/20/2019 12:00:00 AM EST tablet 90 TAKE 1 TABLET BY MOUTH ONCE DAILY TAKE 1 TABLET BY MOUTH ONCE DAILY SOLD: 12/23/2019 [facility] 2.5 mg 12/20/2019 12:00:00 AM EST tablet 90 TAKE ONE TABLET BY MOUTH EVERY DAY TAKE ONE TABLET BY MOUTH EVERY DAY SOLD: 12/23/2019 [facility] 250 mg 10/08/2019 12:00:00 AM EST tablet 5 TAKE ONE TABLET BY MOUTH EVERY DAY FOR 5 DAYS TAKE ONE TABLET BY MOUTH EVERY DAY FOR 5 DAYS SOLD: 10/11/2019 [facility] carvedilol 12.5 MG Oral Tablet CARVEDILOL 07/29/2019 12:00:00 AM EDT tablet 180 TAKE ONE TABLET BY MOUTH TWICE A DAY TAKE ONE TABLET BY MOUT H TWICE A DAY SOLD: 11/01/2019 [facility] 40 mg 07/17/2019 12:00:00 AM EDT tablet,delayed release (DR/EC) 90 TAKE ONE TABLET BY MOUTH EVERY DAY TAKE ONE TABLET BY MOUTH EVERY DAY SOLD: 11/01/2019 [facility] 4 mg 07/17/2019 12:00:00 AM EDT tablet 30 TAKE 1 TABLET BY MOUTH EVERY 4 HOURS FOR NAUSEA TAKE 1 TABLET BY MOUTH EVERY 4 HOURS FOR NAUSEA SOLD: 12/09/2019 [facility] Ondansetron 4 MG Oral Tablet ondansetron (ZOFRAN) 4 MG tablet ondansetron (ZOFRAN) 4 MG tablet 07/17/2019 12:00:00 AM EDT ab orted [facility] prednisolone acetate 10 MG/ML Ophthalmic Suspension prednisoLONE acetate (PRED FORTE) 1 % ophthalmic suspension prednisoLONE acetate (PRED FORTE) 1 % ophthalmic suspension 05/15/2019 12:00:00 AM EDT aborted INSTILL 1 DROP IN THE LEFT EYE FOUR TIMES A DAY [facility] sitagliptin 25 MG Oral Tablet sitaGLIPtin (JANUVIA) 25 MG tablet sitaGLIPtin (JANUVIA) 25 MG tablet 08/03/2018 12:00:00 AM EDT 25 mg Oral aborted Take 25 mg by mouth [facility] fluticasone (VERAMYST) 27.5 MCG/SPRAY nasal spray 302678 2 {spray} Nasal aborted 2 sprays into each nostril [facility] ferrous sulfate 325 MG Oral Tablet ferrous sulfate 325 (65 FE) MG tablet ferrous sulfate 325 (65 FE) MG tablet aborted FERROUS SULFATE 325 (65 Fe) MG TABS [facility] Ergocalciferol 92809 UNT Oral Capsule er gocalciferol (ERGOCALCIFEROL) 10695 units capsule ergocalciferol (ERGOCALCIFEROL) 94533 units capsule 09935 U Oral aborted Take 50,000 Units by mouth [facility] Losartan Potassium 50 MG Oral Tablet losartan (COZAAR) 50 MG tablet losartan (COZAAR) 50 MG tablet 50 mg Oral aborted Ta ke 50 mg by mouth [facility] Calcitriol 0.50640 MG Oral Capsule calcitriol (ROCALTR OL) 0.25 MCG capsule calcitriol (ROCALTROL) 0.25 MCG capsule 0.25 ug Oral aborted Take 0.25 mcg by mouth daily [facility] Hydralazine Hydrochloride 25 MG Oral Tab let hydrALAZINE (APRESOLINE) 25 MG tablet hydrALAZINE (APRESOLINE) 25 MG tablet 25 mg Oral aborted Take 25 mg by mouth 2 (two) times a day [facility] cetirizine hydrochloride 10 MG Oral Tablet cetirizine (ZYRTEC) 10 MG tablet cetirizine (ZYRTEC) 10 MG tablet 10 mg Oral abort ed Take 10 mg by mouth daily [facility] Probiotic Product (PROBIOTIC DAILY PO) Oral aborted Take by mouth [facility] POLYETHYLENE GLYCOL 3350 142 MG/ML Oral Solution polyethylene glycol (GLYCOLAX) packet polyethylene glycol (GLYCOLAX) packet Oral aborted Take by mouth [facility] Darbepoetin Raul-Albumin (ARANESP IJ) aborted Inject as directed every 30 (thirty) days [facility] Cholecalciferol 5000 UNT Oral Capsule Ch olecalciferol (VITAMIN D3) 5000 UNITS capsule Cholecalciferol (VITAMIN D3) 5000 UNITS capsule 5000 U Oral aborted Take 5,000 Units by mouth daily [facility] Omeprazole 40 MG Delayed Release Oral Ca psule omeprazole (PRILOSEC) 40 MG capsule omeprazole (PRILOSEC) 40 MG capsule 40 mg Oral aborted Take 40 mg by mouth daily [facility] atorvastatin 10 MG Oral Tablet atorvastatin (LIPITOR) 10 MG tablet atorvastatin (LIPITOR) 10 MG tablet 10 mg Oral aborted T young 10 mg by mouth daily [facility] Insurance Providers Payer name Policy type / Coverage type Policy ID Covered green party ID Covered green party's relationship to merchant Policy Merchant Plan Information MEDICARE [id number] SP [id number] [facility] 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 [id number] SP [id number] MEDICARE C [id number] S [id number] V65 [facility] FEDERAL B [id number] S [id number] MEDICARE [id number] Doreen [id number] V65 EXCELLUS BS [id number] Doreen [id number] EXCELLUS [facility] [id number] MEDICARE [id number] EXCELLUS C [id number] Self [id number] MEDICARE A [id number] Self [id number] MEDICARE [id number] SP [id number] V65 [employer] 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 [id number] SP [id number] [employer] U/W Commercial [id number] Self [id number] BS Federal Commercial [id number] Self [id number] [place] Primary [id number] Self [id number] [employer] U/W Commercial [id number] Self [id number] BS Federal Commercial [id number] Self [id number] [place] Primary [id number] Self [id number] ANSI-Not a Secondary Insurance [id number] ANSI-Medicare Part B [id number] ANSI-Medicare Part B [id number] ANSI-Not a Secondary Insurance [id number] ANSI-Not a Secondary Insurance [id number] ANSI-Medicare Part B [id number] ANSI-Not a Secondary Insurance [id number] ANSI-Medicare Part B [id number] ANSI-Not a Secondary Insurance [id number] ANSI-Medicare Part B [id number] ANSI-Medicare Part B [id number] ANSI-Not a Secondary Insurance [id number] ANSI-Not a Secondary Insurance [id number] ANSI-Medicare Part B [id number] [facility] U/W Commercial [id number] Self [id number] Federal Commercial [id number] Self [id number] [facility] Medicare Primary [id number] Self [id number] ANSI-Not a Secondary Insurance [id number] ANSI-Medicare Part B [id number] Acc/[place]ol [place] Workers Compensation [id number] Self [id number] [place] Medigap Part B [id number] Self [id number] Medicare Dme Supplies Medigap Part B [id number] Self [id number] [place] Primary [id number] Self [id number] BS [place] Medigap Part B [id number] Self [id number] BS Fed Plan Medigap Part B [id number] Self [id number] ANSI-Medicare Part B [id number] ANSI-Not a Secondary Insurance [id number] ANSI-Not a Secondary Insurance [id number] ANSI-Medicare Part B [id number] ANSI-Medicare Part B [id number] ANSI-Not a Secondary Insurance [id number] ANSI-Medicare Part B [id number] ANSI-Not a Secondary Insurance [id number] ANSI-Not a Secondary Insurance [id number] ANSI-Medicare Part B [id number] [facility] U/W Commercial [id number] Self [id number] BS Federal Commercial [id number] Self [id number] [place] Primary [id number] Self [id number] ANSI-Not a Secondary Insurance [id number] ANSI-Medicare Part B [id number] ANSI-Medicare Part B [id number] ANSI-Not a Secondary Insurance [id number] ANSI-Medicare Part B [id number] ANSI-Not a Secondary Insurance [id number] [facility] U[facility] Commercial [id number] Self [id number] BS Federal Commercial [id number] Self [id number] [place] Primary [id number] Self [id number] ANSI-Not a Secondary Insurance [id number] ANSI-Medicare Part B [id number] [facility] [id number] Self [id number] [place]/[facility] Medicare Primary [id number] Self [id number] MEDICARE [id number] SP [id number] ANSI-Medicare Part B [id number] ANSI-Not a Secondary Insurance [id number] Acc/Dol [place] Workers Compensation [id number] Self [id number] [facility] Medigap Part B [id number] Self [id number] Medicare Dme Supplies [facility] Part B [id number] Self [id number] [place] Medicare Primary [id number] Self [id number] EXCELLUS C [id number] Self [id number] ANSI-Medicare Part B [id number] ANSI-Not a Secondary Insurance [id number] ANSI-Not a Secondary Insurance [id number] ANSI-Medicare Part B [id number] ANSI-Not a Secondary Insurance [id number] ANSI-Medicare Part B [id number] ANSI-Not a Secondary Insurance [id number] ANSI-Medicare Part B [id number] MEDICARE A [id number] Self [id number] ANSI-Medicare Part B [id number] ANSI-Not a Secondary Insurance [id number] MEDICARE C [id number] S [id number] Acc/Dol ([place]) () Workers Compensation [id number] Self [id number] [facility]/[place] Medigap Part B [id number] Self [id number] Medicare Dme Supplies Medigap Part B [id number] Self [id number] [place] Primary [id number] Self [id number] [facility] U/W Commercial [id number] Self [id number] BS Federal Commercial [id number] Self [id number] Medicare [place] Medicare Primary [id number] Self [id number] Acc/[place]ol ([place]) () Workers Compensation [id number] Self [id number] [facility]/[place] Medigap Part B [id number] Self [id number] Medicare Dme Supplies Medigap Part B [id number] Self [id number] [place] Primary [id number] Self [id number] Acc/Dol ([place]) () Workers Compensation [id number] Self [id number] [facility]/SNF Medigap Part B [id number] Self [id number] Medicare Dme Supplies Medigap Part B [id number] Self [id number] [place] Primary [id number] Self [id number] [facility] 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 [id number] SP [id number] MEDICARE [id number] SP [id number] Acc/Dol ([place]) () Workers Compensation [id number] Self [id number] [facility]/SNF Medigap Part B [id number] Self [id number] Medicare Dme Supplies Medigap Part B [id number] Self [id number] [place] Medicare Primary [id number] Self [id number] Acc/Dol ([place]) () Workers Compensation [id number] Self [id number] [facility]/SNF Medigap Part B [id number] Self [id number] Medicare Dme Supplies Medigap Part B [id number] Self [id number] [place] Primary [id number] Self [id number] Acc/Dol ([place]) () Workers Compensation [id number] Self [id number] [facility]/[place] Medigap Part B [id number] Self [id number] Medicare Dme Supplies Medigap Part B [id number] Self [id number] [place] Primary [id number] Self [id number] [facility] U/W Commercial [id number] Self [id number] [place] Medicare Primary [id number] Self [id number] Acc/Dol ([place]) () Workers Compensation [id number] Self [id number] Medicare Dme Supplies Medigap Part B [id number] Self [id number] [place] Primary [id number] Self [id number] [facility] 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 [id number] SP [id number] Acc/Dol ([place]) () Workers Compensation [id number] Self [id number] [place] Medicare Primary [id number] Self [id number] Acc/Dol ([place]) () Workers Compensation [id number] Self [id number] [place] Medicare Primary [id number] Self [id number] Acc/[place]ol ([place]) () Workers Compensation [id number] Self [id number] [place] Medicare Primary [id number] Self [id number] Acc/Dol ([place]) () Workers Compensation [id number] Self [id number] [place] Medicare Primary [id number] Self [id number] EXCELLUS BCBS FEDERAL [id number] SP [id number] EXCELLUS BCBS FEDERAL [id number] SP [id number] Blue Shield Federal Medigap Part B [id number] Self [id number] [place] Medicare Primary [id number] Self [id number] [employer] U/W Commercial [id number] Self [id number] [place] Medicare Primary [id number] Self [id number] Blue Shield Federal Medigap Part B [id number] Self [id number] [place] Medicare Primary [id number] Self [id number] Blue Shield Federal Medigap Part B [id number] Self [id number] [place] Medicare Primary [id number] Self [id number] [employer] U/W Commercial [id number] Self [id number] [place] Medicare Primary [id number] Self [id number] [employer] U/W Commercial [id number] Self [id number] [place] Medicare Primary [id number] Self [id number] Blue Shield Federal Medigap Part B [id number] Self [id number] [place] Medicare Primary [id number] Self [id number] Blue Shield Federal Medigap Part B [id number] Self [id number] [place] Medicare Primary [id number] Self [id number] [employer] U/W Commercial [id number] Self [id number] [place] Medicare Primary [id number] Self [id number] [employer] Federal Medigap Part B [id number] Self [id number] [place]/N[place] Medicare Primary [id number] Self [id number] EXCELLUS BS FEDERAL [id number] SP [id number] [employer] U/W Commercial [id number] Self [id number] [place] Medicare Primary [id number] Self [id number] [place] Medicare Primary Self [employer] U/W Commercial Self BS Fed Plan Commercial Self Blue Shield Federal [employer] Maintenance Organization (HMO) Self MEDICARE [id number] SP [id number] A MEDICARE [id number] SP [id number] MEDICARE [id number] SP [id number] [facility]/[employer] HLTH (pr) Medigap Part B Self BS Federal Health Maintenance Organization (HMO) S elf [id number] Problems, Conditions, and Diagnoses Code Display Name Description Problem Type Effective Dates Data Source(s) 690505226 Unsteady gait Unsteady gait Problem 10/26/2020 12:00:00 AM EST [facility] ([facility], ) 54425094 Tremor Tremor Problem 10/26/2020 12:00:00 AM ES T [facility] ([facility], ) [id number] Ingrowing nail Ingrowing nail Problem 08/26/2020 12:00: 00 AM EDT [facility] ([facility] 43810530 Plantar fascial fibromatosis Plantar fascial fibromato sis Problem 08/26/2020 12:00:00 AM EDT [facility] ([facility] I48.91 Unspecified atrial fibrillation Unspecified atrial fib rillation [id number] 04/06/2020 12:00:00 AM EDT [facility] R52 Pain, unspecified Pain, unspecified [id number] 02/27/2020 12:00:00 AM EDT [facility] M19.90 Unspecified osteoarthritis, unspecified site Unspecified osteoarthritis, unspecified Diagnosis 10/07/2020 03:20:32 PM EST [facility] R06.02 Shortness of breath Shortness of breath Diagnosis 1 12/08/2019 03:20:32 PM EST [facility] K21.9 Gastro-esophageal reflux disease without esophagitis Gastro-esophageal reflux disease without Diagnosis 10/07/2020 03:20:32 PM [facility] Z99.2 Dependence on renal dialysis Dependence on renal dialy sis Diagnosis 10/07/2020 03:20:32 PM EST [facility] N18.6 End stage renal disease End stage renal disease Diagno sis 10/07/2020 03:20:32 PM [facility] 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 Type 2 diabetes mellitus with diabetic c Diagnosis 10/07/2020 03:20:32 PM [facility] E78.5 Hyperlipidemia, unspecified Hyperlipidemia, unspecifie d Diagnosis 10/07/2020 03:20:32 PM [facility] I10 Essential (primary) hypertension Essential (primary) h ypertension Diagnosis 10/07/2020 03:20:32 PM [facility] I48.91 Unspecified atrial fibrillation Unspecified atri al fibrillation Diagnosis 10/07/2020 03:20:32 PM [facility] Surgeries/Procedures Procedure Description Date Indications Data Source(s) TSTG ANS FUNCJ CARDIOVAGAL INNERVAJ PARASYMP 1 12:00:00 AM EST [facility] ([facility], ) TSTG ANS FUNCJ CARDIOVAGAL INNERVAJ PARASYMP 1 12:00:00 AM EST [facility] ([facility] ) TESTING AUTONOMIC NERVOUS SYSTEM FUNCTION 11/18/2020 1 2:00:00 AM EST [facility] ([facility] ) TESTING AUTONOMIC NERVOUS SYSTEM FUNCTION 11/18/2020 1 2:00:00 AM EST [facility] ([facility] ) MRI BRAIN BRAIN STEM W/O CONTRAST MATERIAL 11/05/2020 12:00:00 AM EST [facility] ([facility] ) MRI BRAIN BRAIN STEM W/O CONTRAST MATERIAL 11/05/2020 12:00:00 AM EST [facility] ([facility] ) MRI SPINAL CANAL LUMBAR W/O CONTRAST MATERIAL 11/05/19 21 12:00:00 AM EST [facility] ([facility]) MRI SPINAL CANAL LUMBAR W/O CONTRAST MATERIAL 11/05/19 12:00:00 AM EST [facility] ([facility]) ECG ROUTINE ECG W/LEAST 12 LDS W/I&R POCT AMB EKG Routine 10/07/2020 6:13 PM EST Atrial fibrillation Benign essential hypertension Short of breath on exertion 10/07/2020 11:13:00 PM EST Short of breath on exertionBenign essential hypertensionAtrial fibrillation [facility] Short of breath on exertion Benign essential hypertension Atrial fibrillation X-Ray Femur Minimum 2 Views 04/17/2020 12:00:00 AM EDT [facility] ([facility]) OPTX FEM FX PROX END NCK INT FIXJ/PROSTC RPLCMT 2019 12:00:00 AM EDT [facility] ([facility]) Results ID Date Data Source [id number] 11/11/2020 03:34:00 PM EST [facility] ([facility]) Name Value Range Interpretation Code Description Data Mabel rce(s) Supporting Document(s) Gram Stain Laboratory test result Normal (applies to non-n umeric results) [facility] ([facility]) FEW GRAM POSITIVE COCCI IN PAIRS Wound Culture Laboratory test result Normal (applies t o non-numeric results) [facility] ([facility]) <content>FULL REPORT IN LAB NOTES ([facility] a nd [facility]).</content>
<content></content>
<content>ORGANISM 1: STAPHYLOCOCCUS AUREUS</content>
<content></content>
<content>QUANTITY OF GROWTH HEAVY</content>
<content></content>
<content></content>
<content>ORG ANISM 1: STAPHYLOCOCCUS AUREUS</content>
<content></content>
<content> STAPHYLOCOCCUS AUREUS: REACTION</content>
<content>ICR (INDUCIBLE CC RESISTANCE) IV ICR TEST RESULT</content>
<content>TETRACYCLINE PO 250 mg qid <=1 S</content>
<content>PENICILLIN G IV 1 mu q6h 0.06 R</content>
<content>PENICILLIN G PO 250mg q6h fasting 0.06 R</content>
<content>TRIMETHOPRIM/SULFAMETHOXAZOLE IV 160mg TMP & 800mg SMXq6h <=10 S</content>
<content>TRIMETHOPRIM/SULFAMETHOXAZOLE PO Bactrim DS Bid <=10 S</content>
<content>ERYTHROMYCIN IV 500mg q6h <=0.25 S</content>
<content> ERYTHROMYCIN PO 500mg q6h <=0.25 S</content>
<content>GENTAMICIN IV 80mg q8h <=0.5 S</content>
<content>CLINDAMYCIN IV 600mg q6h 0.25 S</content>
<content>CLINDAMYCIN PO 150mg q6h 0.25 S</content>
<content>OXACILLIN IV 500mg q6h <=0.25 S</content>
<content>VANCOMYCIN IV 500mg q8h 1 S</content>
<content>LINEZOLID (ZYVOX) IV 600MG Q12HR 2 S</content>
<content>LINEZOLID (ZYVOX) PO 600MG Q12HR 2 S</content>
<content>An isolate with a (+) POSITIVE ICR test is considered</content>
<content>CLINDAMYCIN RESISTANT; however, clindamycin may still</content>
<content>be effective in some patients.</content>
<content>An isolate with a (-) NEGATIVE ICR test is considered</content>
<content>CLIDAMYCIN SENSITIVE.</content>
<content>Oxacillin result predicts susceptibility to all penicillinase-stable</content>
<content>penicillins (Nafcillin, Dicloxacilin), Cephalosporins, Carbapenems,</content>
<content>Amoxicillin/Clavulanate & Ampicillin/Sulbactam per [facility] standards.</content>
<content></content> ID Date Data Source [id number] 11/11/2020 03:34:00 PM EST [facility] ([facility]) Name Value Range Interpretation Code Description Data Mabel rce(s) Supporting Document(s) Bacteria identified in Wound by Culture Laboratory test result Normal (applies to non-numeric results) [facility] ([facility]) FEW GRAM POSITIVE COCCI IN PAIRS ID Date Data Source [id number] 11/06/2020 01:59:00 PM EST [facility] ([facility]) Name Value Range Interpretation Code Description Data Mabel rce(s) Supporting Document(s) Laboratory test finding (navigational concept) 62.5 s 1 2.1-14.4 Above high normal [facility] ([facility]) Laboratory test finding (navigational concept) 5.7 Above upper panic limits [facility] ([facility]) ID Date Data Source [id number] 11/06/2020 04:13:00 AM EST [facility] ([facility]) Name Value Range Interpretation Code Description Data Mabel rce(s) Supporting Document(s) Blood Urea Nitrogen 37 mg/dL 7-18 Above high normal [facility] ([facility]) Glucose, Fasting 84 mg/dL 70-100 Normal (applies to non-numeric results) [facility] ([facility]) Creatinine For GFR 5.57 mg/dL 0.55-1.30 Above high normal [facility] ([facility]) Glomerular Filtration Rate 8.0 Below low normal [facility] ([facility]) <content>Units are mL/min/1.73 m2</content>
<content></content>
<content>Chronic Kidney Disease Staging per NKF:</content>
<content></content>
<content>Stage I & II GFR >=60 Normal to Mildly Decreased</content>
<content>Stage III GFR 30- 59 Moderately Decreased</content>
<content>Stage IV GFR 15-29 Severely Decreased</content>
<content>Stage V GFR <15 Very Little GFR Left</content>
<content>ESRD GFR <15 on IT RECRUITER</content>
<content></content> Sodium Level 139 meq/L 136-145 Normal (applies to non-numeric res ults) [facility] ([facility]) Chloride Level 102 meq/L 98-107 Normal (applies to non-numeric r esults) [facility] ([facility]) Potassium Serum 4.0 meq/L 3.5-5.1 Normal (applies to non-numeric results) [facility] ([facility]) Carbon Dioxide Level 28 meq/L 21-32 Normal (applies to non-num jabari results) [facility] ([facility]) Anion Gap 9 meq/L 8-16 Normal (applies to non-numeric resul ts) [facility] ([facility]) Calcium Level 9.4 mg/dL 8.8-10.2 Normal (applies to non-numeric re sults) [facility] ID Date Data Source [id number] 11/06/2020 04:13:00 AM EST [facility] ([facility]) Name Value Range Interpretation Code Description Data Mabel rce(s) Supporting Document(s) Ast/Sgot 16 U/L 7-37 Normal (applies to non-numeric resul ts) [facility] ([facility]) Alt/SGPT 15 U/L 12-78 Normal (applies to non-numeric resul ts) [facility] ([facility]) Bilirubin,Total 0.4 mg/dL 0.2-1.0 Normal (applies to non-numeric results) [facility] Alkaline Phosphatase 58 U/L 45-117 Normal (applies to non-num jabari results) [facility] Total Protein 6.5 GM/DL 6.4-8.2 Normal (applies to non-numeric re sults) [facility] Albumin 3.2 GM/DL 3.2-5.2 Normal (applies to non-numeric resul ts) [facility] ([facility]) Bilirubin,Direct 0.1 mg/dL 0.0-0.2 Normal (applies to non-numeric results) [facility] Albumin/Globulin Ratio 1.0 1.2-2.2 Below low normal [facility] ([facility]) ID Date Data Source [id number] 11/06/2020 04:13:00 AM EST [facility] ([facility]) Name Value Range Interpretation Code Description Data Mabel rce(s) Supporting Document(s) White Blood Count 12.1 10 4.0-10.0 Above high normal [facility] ([facility]) Red Blood Count 3.22 10 4.00-5.40 Below low normal [facility] ([facility]) Hemoglobin 9.9 g/dL 12.0-15.5 Below low normal [facility] ( [facility]) Mean Corpuscular Hemoglobin 30.7 pg 27.0-33.0 Norm al (applies to non-numeric results) [facility] ([facility]) Mean Corpuscular Volume 97.8 fl 80.0-96.0 Above high [facility] Hematocrit 31.5 % 36.0-47.0 Below low normal [facility] Platelet Count, Automated 259 10 150-450 Normal (applies to non-numeric results) [facility] Mean Corpuscular HGB Conc 31.4 g/dL 32.0-36.5 Below low normal [facility] Red Cell Distribution Width 13.1 % 11.5-14.5 Norm al (applies to non-numeric results) [facility] ([facility]) Nucleated Red Blood Cell % 0.0 % 0-0 Normal (applies to n on-numeric results) [facility] ([facility]) ID Date Data Source [id number] 11/06/2020 04:12:00 AM EST [facility] ([facility]) Name Value Range Interpretation Code Description Data Mabel rce(s) Supporting Document(s) Inr 5.88 Above upper panic limits [facility] ([facility]) THERAPUTIC HUMAN INR VALUES INDICATIONS NORMAL RANGES PROPHYLAXIS/TREATMENT OF: VENOUS THROMBOSIS 2.0-3.0 PULMONARY EMBOLISM 2.0-3.0 PREVENTION OF SYSTEMIC EMBOLISM FROM: TISSUE HEART VALVES 2.0-3.0 ACUTE MYOCARDIAL INFARCTION 2.0-3.0 VALVULAR HEART DISEASE 2.0-3.0 ATRIAL FIBRILLATION 2.0-3.0 MECHANICAL VALVES(HIGH RISK) 2.5-3.5 RECURRENT MYOCARDIAL INFARCTION 2.5-3.5 Prothrombin Time 54.1 s 12.5-14.3 Above high normal [facility] ID Date Data Source [id number] 08/10/2020 06:00:00 AM EDT [facility] ([facility]) Name Value Range Interpretation Code Description Data Mabel rce(s) Supporting Document(s) Glucose, Fasting 103 mg/dL 70-100 Above high normal M [facility] ([facility]) Blood Urea Nitrogen 38 mg/dL 7-18 Above high normal [facility] Sodium Level 140 meq/L 136-145 Normal (applies to non-numeric res ults) [facility] ([facility]) Creatinine For GFR 5.99 mg/dL 0.55-1.30 Above high normal [facility] ([facility]) Glomerular Filtration Rate 7.4 Below low normal [facility] ([facility]) <content>Units are mL/min/1.73 m2</content>
<content></content>
<content>Chronic Kidney Disease Staging per NKF:</content>
<content></content>
<content>Stage I & II GFR >=60 Normal to Mildly Decreased</content>
<content>Stage III GFR 30- 59 Moderately Decreased</content>
<content>Stage IV GFR 15-29 Severely Decreased</content>
<content>Stage V GFR <15 Very Little GFR Left</content>
<content>ESRD GFR <15 on IT RECRUITER</content>
<content></content> Chloride Level 108 meq/L 98-107 Above high normal [facility] ([facility]) Carbon Dioxide Level 21 meq/L 21-32 Normal (applies to non-num jabari results) [facility] ([facility]) Potassium Serum 4.1 meq/L 3.5-5.1 Normal (applies to non-numeric results) [facility] ([facility]) Anion Gap 11 meq/L 8-16 Normal (applies to non-numeric resul ts) [facility] ([facility]) Calcium Level 8.6 mg/dL 8.8-10.2 Below low normal [facility] ([facility]) ID Date Data Source [id number] 08/10/2020 06:00:00 AM EDT [facility] ([facility]) Name Value Range Interpretation Code Description Data Mabel rce(s) Supporting Document(s) Prothrombin Time 16.5 s 12.5-14.3 Above high normal M [facility] ([facility]) Inr 1.30 Normal (applies to non-numeric resul ts) [facility] ([facility]) THERAPUTIC HUMAN INR VALUES INDICATIONS NORMAL RANGES PROPHYLAXIS/TREATMENT OF: VENOUS THROMBOSIS 2.0-3.0 PULMONARY EMBOLISM 2.0-3.0 PREVENTION OF SYSTEMIC EMBOLISM FROM: TISSUE HEART VALVES 2.0-3.0 ACUTE MYOCARDIAL INFARCTION 2.0-3.0 VALVULAR HEART DISEASE 2.0-3.0 ATRIAL FIBRILLATION 2.0-3.0 MECHANICAL VALVES(HIGH RISK) 2.5-3.5 RECURRENT MYOCARDIAL INFARCTION 2.5-3.5 ID Date Data Source [id number] 08/10/2020 06:00:00 AM EDT [facility] ([facility]) Name Value Range Interpretation Code Description Data Mabel rce(s) Supporting Document(s) White Blood Count 8.5 10 4.0-10.0 Normal (applies to non-numeri c results) [facility] ([facility]) Hemoglobin 9.8 g/dL 12.0-15.5 Below low normal [facility] ( [facility]) Red Blood Count 3.08 10 4.00-5.40 Below low normal [facility] ([facility]) Hematocrit 30.7 % 36.0-47.0 Below low normal [facility] ( [facility]) Mean Corpuscular Volume 99.7 fl 80.0-96.0 Above high normal [facility] Mean Corpuscular Hemoglobin 31.8 pg 27.0-33.0 Norm al (applies to non-numeric results) [facility] ([facility]) Red Cell Distribution Width 13.8 % 11.5-14.5 Norm al (applies to non-numeric results) [facility] ([facility]) Platelet Count, Automated 278 10 150-450 Normal (applies to non-numeric results) [facility] ([facility]) Mean Corpuscular HGB Conc 31.9 g/dL 32.0-36.5 Below low normal [facility] ([facility]) Neutrophils % 78.5 % 36.0-66.0 Above high normal [facility] ([facility]) Lymph % 13.1 % 24.0-44.0 Below low normal [facility] ( [facility]) [place] % 6.4 % 0.0-5.0 Above high normal [facility] ([facility]) Eos % 0.8 % 0.0-3.0 Normal (applies to non-numeric resul ts) [facility] ([facility]) Baso % 0.8 % 0.0-1.0 Normal (applies to non-numeric resul ts) [facility] ([facility]) Nucleated Red Blood Cell % 0.0 % 0-0 Normal (applies to n on-numeric results) [facility] ([facility]) Neutrophils # 6.7 10 1.5-8.5 Normal (applies to non-numeric re sults) [facility] ([facility]) Immature Granulocyte % 0.4 % 0-3.0 Normal (applies to non-n umeric results) [facility] ([facility]) [place] # 0.6 10 0.0-0.8 Normal (applies to non-numeric resul ts) [facility] ([facility]) Lymph # 1.1 10 1.5-5.0 Below low normal [facility] ( [facility]) Eos # 0.1 10 0.0-0.5 Normal (applies to non-numeric resul ts) [facility] ([facility]) Baso # 0.1 10 0.0-0.2 Normal (applies to non-numeric resul ts) [facility] ([facility]) Procedure Social History Code Duration Value Status Description Data Source(s ) Alcohol intake 10/07/2020 12:00:00 AM EST No completed [facility] Smoking 10/07/2020 12:00:00 AM EST Never smoker completed Never s moker [facility] Smoking 09/30/2020 12:00:00 AM EST Quit completed Quit [facility] ([facility]) Vital Signs ID Date Data Source UNK Name Value Range Interpretation Code Description Data Source(s) [place] body weight 125 [lb_av] 125 [lb_av] [facility] ([facility]) Oxygen saturation in Arterial blood by Pulse oximetry 99 % 99 % [facility] Body temperature 98.7 [degF] 98.7 [degF] [facility] ([facility]) Respiratory rate 18 /min 18 /min [facility] ( [facility]) Heart rate 75 /min 75 /min [facility] ([facility]) Body height 65.5 [in_i] 65.5 [in_i] [facility] ([facility]) 5'5.50" Diastolic blood pressure 78 mm[Hg] 78 mm[Hg] [facility] ([facility]) Systolic blood pressure 122 mm[Hg] 122 mm[Hg] M [facility] ([facility]) [place] body weight 125 [lb_av] 125 [lb_av] [facility] ([facility]) Oxygen saturation in Arterial blood by Pulse oximetry 97 % 97 % [facility] Body temperature 97.4 [degF] 97.4 [degF] [facility] ([facility]) Respiratory rate 20 /min 20 /min [facility] ( [facility]) Heart rate 78 /min 78 /min [facility] ([facility]) Body mass index (BMI) [Ratio] 24.3 kg/m2 24.3 k g/m2 [facility] ([facility]) Body weight 148.00 [lb_av] 148.00 [lb_av] [facility] ([facility]) Body height 65.5 [in_i] 65.5 [in_i] [facility] 5'5.50" Diastolic blood pressure 74 mm[Hg] 74 mm[Hg] [facility] ([facility]) Systolic blood pressure 154 mm[Hg] 154 mm[Hg] [facility] Diastolic blood pressure 68 mm[Hg] 68 mm[Hg] [facility] Systolic blood pressure 140 mm[Hg] 140 mm[Hg] [facility] Oxygen saturation in Arterial blood by Pulse oximetry 98 % 98 % [facility] Body mass index (BMI) [Ratio] 22.80 kg/m2 22.80 kg/m2 [facility] Body weight 62.143 kg 62.143 kg [facility] Body height 165.1 cm 165.1 cm [facility] Respiratory rate 18 /min 18 /min [facility] Heart rate 72 /min 72 /min [facility] [place] body weight 125 [lb_av] 125 [lb_av] [facility] ([facility]) Oxygen saturation in Arterial blood by Pulse oximetry 99 % 99 % [facility] Body temperature 97.9 [degF] 97.9 [degF] [facility] ([facility]) Respiratory rate 18 /min 18 /min [facility] ( [facility]) Heart rate 86 /min 86 /min [facility] ([facility]) Body mass index (BMI) [Ratio] 25.1 kg/m2 25.1 k g/m2 [facility] ([facility]) Body weight 153.00 [lb_av] 153.00 [lb_av] [facility] ([facility]) Body height 65.5 [in_i] 65.5 [in_i] [facility] ([facility]) 5'5.50" Diastolic blood pressure 84 mm[Hg] 84 mm[Hg] [facility] ([facility]) Systolic blood pressure 140 mm[Hg] 140 mm[Hg] M [facility] ([facility]) [place] body weight 125 [lb_av] 125 [lb_av] [facility] ([facility]) Oxygen saturation in Arterial blood by Pulse oximetry 98 % 98 % [facility] ([facility]) Body temperature 98.3 [degF] 98.3 [degF] [facility] ([facility]) Respiratory rate 20 /min 20 /min [facility] ( [facility]) Heart rate 69 /min 69 /min [facility] ([facility]) Body mass index (BMI) [Ratio] 23.9 kg/m2 23.9 k g/m2 [facility] ([facility]) Body weight 146.00 [lb_av] 146.00 [lb_av] [facility] ([facility]) Body height 65.5 [in_i] 65.5 [in_i] [facility] ([facility]) 5'5.50" Diastolic blood pressure 74 mm[Hg] 74 mm[Hg] [facility] ([facility]) Systolic blood pressure 144 mm[Hg] 144 mm[Hg] [facility] ([facility]) Body mass index (BMI) [Ratio] 23.4 kg/m2 23.4 k g/m2 [facility] Heart rate 60 /min 60 /min [facility] ([facility] Diastolic blood pressure 60 mm[Hg] 60 mm[Hg] [facility] ([facility] Systolic blood pressure 130 mm[Hg] 130 mm[Hg] [facility] ([facility] Body weight 145.00 [lb_av] 145.00 [lb_av] [facility] ([facility] Body height 66 [in_i] 66 [in_i] [facility] ([facility] 5'6" [place] body weight 125 [lb_av] 125 [lb_av] [facility] ([facility]) Oxygen saturation in Arterial blood by Pulse oximetry 97 % 97 % [facility] ([facility]) Body temperature 96.6 [degF] 96.6 [degF] [facility] ([facility]) Respiratory rate 20 /min 20 /min [facility] ( [facility]) Heart rate 63 /min 63 /min [facility] ([facility]) Body mass index (BMI) [Ratio] 23.3 kg/m2 23.3 k g/m2 [facility] ([facility]) Body weight 142.00 [lb_av] 142.00 [lb_av] [facility] ([facility]) Body height 65.5 [in_i] 65.5 [in_i] [facility] ([facility]) 5'5.50" Diastolic blood pressure 82 mm[Hg] 82 mm[Hg] [facility] ([facility]) 128/palp recheck Systolic blood pressure 130 mm[Hg] 130 mm[Hg] M [facility] ([facility]) 128/palp recheck Body mass index (BMI) [Ratio] 20.4 kg/m2 20.4 k g/m2 [facility] ([facility]) Body weight 130.00 [lb_av] 130.00 [lb_av] [facility] ([facility]) Body height 67 [in_i] 67 [in_i] [facility] ([facility]) 5'7" Body temperature 97.8 [degF] 97.8 [degF] [facility] ([facility]) [place] body weight 125 [lb_av] 125 [lb_av] [facility] ([facility]) Oxygen saturation in Arterial blood by Pulse oximetry 97 % 97 % [facility] ([facility]) Body temperature 97.2 [degF] 97.2 [degF] [facility] ([facility]) Respiratory rate 18 /min 18 /min [facility] ( [facility]) Heart rate 63 /min 63 /min [facility] ([facility]) Body mass index (BMI) [Ratio] 21.1 kg/m2 21.1 k g/m2 [facility] ([facility]) Body weight 129.00 [lb_av] 129.00 [lb_av] [facility] ([facility]) Body height 65.5 [in_i] 65.5 [in_i] [facility] ([facility]) 5'5.50" Diastolic blood pressure 64 mm[Hg] 64 mm[Hg] [facility] ([facility]) 138/60 recheck Systolic blood pressure 130 mm[Hg] 130 mm[Hg] [facility] ([facility]) 138/60 recheck Patient Treatment Plan of Care Planned Activity Planned Date Details Description Data Source (s) apixaban 5 MG Oral Tablet 10/07/2020 12:00:00 AM EST [facility] Propafenone Hydrochloride 300 MG Oral Tablet 06/05/2020 12:00:00 AM EDT [facility] Megestrol Acetate 40 MG Oral Tablet 06/02/2020 12:00:00 AM EDT [facility] Warfarin Sodium 3 MG Oral Tablet 04/27/2020 12:00:00 AM EDT [facility] 1 ML heparin sodium, porcine 1000 UNT/ML Injection 04/13/2020 12 :00:00 AM EDT [facility] carvedilol 12.5 MG Oral Tablet 12/20/2019 12:00:00 AM EST [facility] Ondansetron 4 MG Oral Tablet 07/17/2019 12:00:00 AM EDT [facility] prednisolone acetate 10 MG/ML Ophthalmic Suspension 05/15/20 12:00:00 AM EDT [facility] sitagliptin 25 MG Oral Tablet 08/03/2018 12:00:00 AM EDT [facility] POLYETHYLENE GLYCOL 3350 142 MG/ML Oral Solution [facility] Losartan Potassium 50 MG Oral Tablet [facility] fluticasone (VERAMYST) 27.5 MCG/SPRAY nasal spray [facility] ferrous sulfate 325 MG Oral Tablet [facility] Ergocalciferol 80179 UNT Oral Capsule [facility] cetirizine hydrochloride 10 MG Oral Tablet [facility] Probiotic Product (PROBIOTIC DAILY PO) [facility] Cholecalciferol 5000 UNT Oral Capsule [facility] Darbepoetin Raul-Albumin (ARANESP IJ) [facility] Hydralazine Hydrochloride 25 MG Oral Tablet [facility] Calcitriol 0.62886 MG Oral Capsule [facility] Omeprazole 40 MG Delayed Release Oral Capsule [facility] atorvastatin 10 MG Oral Tablet [facility]
[2020-11-27 16:28] LABS: BASO # 0.1 10^3/uL (0.0-0.2); BASO % 1.1 % (0.0-1.0); EOS % 0.6 % (0.0-3.0); HEMATOCRIT 28.9 % (36.0-47.0); HEMOGLOBIN 9.2 g/dl (12.0-15.5); LYMPH # 0.9 10^3/uL (1.5-5.0); LYMPH % 12.5 % (24.0-44.0); MEAN CORPUSCULAR HEMOGLOBIN 30.8 pg (27.0-33.0); MEAN CORPUSCULAR HGB CONC 31.8 g/dl (32.0-36.5); MEAN CORPUSCULAR VOLUME 96.7 fl (80.0-96.0); MONO # 0.9 10^3/uL (0.0-0.8); MONO % 13.1 % (0.0-5.0); NEUTROPHILS # 5.1 10^3/uL (1.5-8.5); NEUTROPHILS % 72.1 % (36.0-66.0); PLATELET COUNT, AUTOMATED 299 10^3/uL (150-450); RED BLOOD COUNT 2.99 10^6/uL (4.00-5.40)
[2020-11-27 17:48] VITALS: BP 138/59
== END 2020-11-27 17:49 | disposition home or self-care (01) ==
LOC: M ED 13:47
DX: Z48.00 Encounter for change or removal of nonsurgical wound dressing (principal); S81.802D Unspecified open wound, left lower leg, subsequent encounter; X58.XXXD Exposure to other specified factors, subsequent encounter; Y92.89 Other specified places as the place of occurrence of the external cause; I12.0 Hypertensive chronic kidney disease with stage 5 chronic kidney disease or end stage renal disease; E11.9 Type 2 diabetes mellitus without complications; N18.6 End stage renal disease; Z99.2 Dependence on renal dialysis; Z79.899 Other long term (current) drug therapy; Z88.1 Allergy status to other antibiotic agents; Z88.2 Allergy status to sulfonamides

== ENCOUNTER 2020-12-22 16:48 | Inpatient (IN) | payer MEDICARE, BC ==
[~2020-12-22] VITALS: Ht 167.6 cm; Wt 65.5 kg
[~2020-12-22 16:48] MED LIST changes: +BUPR150T12 PO; -BUPR150T4 PO
--- OUTSIDE RECORDS SUMMARY | 2020-12-22 17:01 | CCD | Continuity of Care Document ---
Author Author Lyric ANGUIANO D.O. Organization Unknown Address [address] [place] [address] Phone [phone] Care Team Providers Care Open Developer Operator Name Role Phone Lina Anguiano D.O. AUTM Shekhar Dominguez M.D. AUTM [phone] Guerline Steen AUTM [phone] Problems Active Problems Provider Date Infectious colitis, [...] four times a day pain 300gm Shankar AdnersonOJuancarlos 01/2017 One Touch Ultra Test Strips to be used wt glucometer once per day 100units E11.22 Shankar AndersonOJuancarlos 02/09/2016 Colace 100mg Capsules 1 by mouth every day as needed 30caps Shankar AndersonOJuancarlos 12/04 Fluticasone Propionate 50mcg/Act Suspension 2 spray each nostril once a day 48gm Shankar HopkinsOJuancarlos 12/04/2015 Carvedilol 3.125mg Tablets 1 by mouth twice a day 60tabs Shankar AdnersonOJuancarlos 12/04 Onetouch Ultra Blue Strips test strips [...] Influenza,Unspecified Vital Signs Date Vital Result Comment 11/27/2020 1:08pm BP Systolic 118 mmHg BP Diastolic 68 mmHg Height 65.5 inches 5'5.50" Heart Rate 64 /min Respiratory Rate 18 /min Body Temperature 99.0 F O2 % BldC Oximetry 99 % [place] Body Weight 125 lb 11/18/2020 2:56pm BP Systolic 122 mmHg BP Diastolic 78 mmHg Height 65.5 inches 5'5.50" Heart Rate 75 /min Respiratory Rate 18 /min Body Temperature 98.7 F O2 % BldC Oximetry 99 % [place] Body Weight 125 lb Results Test Acquired Date Facility Test Result H/L Range Note CBC With Differential 11/27/2020 [facility] Outpatient Joan thurman (Registration) [address] [place] [address] [phone] White Blood Count 7.0 10 Normal 4.0-10.0 Red Blood Count 2.99 10 Low 4.00-5.40 Hemoglobin 9.2 g/dL Low 12.0-15.5 Hematocrit 28.9 % Low 36.0-47.0 Mean Corpuscular Volume 96.7 fl High 80.0-96.0 Mean Corpuscular Hemoglobin 30.8 pg Normal 27.0-33.0 Mean Corpuscular HGB Conc 31.8 g/dL Low 32.0-36.5 Red Cell Distribution Width 13.5 % Normal 11.5-14.5 Platelet Count, Automated 299 10 Normal 150-450 Neutrophils % 72.1 % High 36.0-66.0 Lymph % 12.5 % Low 24.0-44.0 [place] % 13.1 % High 0.0-5.0 Eos % 0.6 % Normal 0.0-3.0 Baso % 1.1 % High 0.0-1.0 Immature Granulocyte % 0.6 % Normal 0-3.0 Nucleated Red Blood Cell % 0.0 % Normal 0-0 Neutrophils # 5.1 10 Normal 1.5-8.5 Lymph # 0.9 10 Low 1.5-5.0 [place] # 0.9 10 High 0.0-0.8 Eos # 0.0 10 Normal 0.0-0.5 Baso # 0.1 10 Normal 0.0-0.2 Laboratory test finding 11/27/2020 [facility] Outpatient T esting (Registration) [address] [place] [phone] C Reactive Protein Quantitativ 2.87 mg/dL High 0 .00-0.[address] Gram St 11/11/[address] [address] [phone] Gram Stain (SEE NOTE) Normal 1 Wound Culture FULL REPORT IN L <SEE NOTE> Normal 2 Istat PT/Inr 11/06/2020 [facility] Outpatient Testi ng (Registration) [address] [place] [phone] [phone] iSTAT Protime Seconds 62.5 seconds High 12.1-14. 4 iSTAT Inr 5.7 Critical high Complete Blood Count 11/06/2020 [facility] Outpatient Test ing (Registration) [address] [place] [phone] White Blood Count 12.1 10 High 4.0-10.0 [...] 0.0 % Normal 0-0 Liver Profile 11/06/2020 [facility] Outpatient Testi ng (Registration) [address] [place] [phone] Ast/Sgot 16 U/L Normal 7-37 Alt/SGPT 15 U/L Normal 12-78 Alkaline Phosphatase 58 U/L Normal 45-117 Bilirubin,Total 0.4 mg/dL Normal 0.2-1.0 Bilirubin,Direct 0.1 mg/dL Normal 0.0-0.2 Total Protein 6.5 GM/DL Normal 6.4-8.2 Albumin 3.2 GM/DL Normal 3.2-5.2 Albumin/Globulin Ratio 1.0 Low 1.2-2.2 Basic Metabolic Profile 11/06/2020 [facility] Outpatient T esting (Registration) [address] [place] [address] [phone] Glucose, Fasting 84 mg/dL Normal 70-100 Blood [...] 9.4 mg/dL Normal 8.8-10.2 Prothrombin Time/Inr 11/06/2020 [facility] Outpatient Test ing (Registration) [address] [place] [phone] Prothrombin Time 54.1 seconds High 12.5-14.3 Inr 5.88 Critical high 4 CBC With Differential 08/10/2020 [facility] Outpatient Joan ting (Registration) [address] [place] [phone] White Blood Count 8.5 10 Normal 4.0-10.0 [...] 36.0-66.0 Lymph % 13.1 % Low 24.0-44.0 [place] % 6.4 % High 0.0-5.0 Eos % 0.8 % Normal 0.0-3.0 Baso % 0.8 % Normal 0.0-1.0 Immature Granulocyte % 0.4 % Normal 0-3.0 Nucleated Red Blood Cell % 0.0 % Normal 0-0 Neutrophils # 6.7 10 Normal 1.5-8.5 Lymph # 1.1 10 Low 1.5-5.0 [place] # 0.6 10 Normal 0.0-0.8 Eos # 0.1 10 Normal 0.0-0.5 Baso # 0.1 10 Normal 0.0-0.2 Prothrombin Time/Inr 08/10/2020 [facility] Outpatient Test ing (Registration) [address] [place] [address] [phone] Prothrombin Time 16.5 seconds High 12.5-14.3 Inr 1.30 Normal 5 Basic Metabolic Profile 08/10/2020 [facility] Outpatient T esting (Registration) [address] [place] [address] [phone] Glucose, Fasting 103 mg/dL High 70-100 Blood [...] Little GFR Left ESRD GFR <15 on ASSET MANAGER 4 THERAPUTIC HUMAN INR VALUES INDICATIONS NORMAL [...] Little GFR Left ESRD GFR <15 on ASSET MANAGER Procedures Date Code Description Status 10/11/2016 40318170 Mammogram Completed Medical Devices Description No Information Available Encounters Type Date Location Provider Dx Diagnosis Office Visit 11/27/2020 1:20p Family [facility] Shankar AndersonOJuancarlos L03.116 Cellulitis of left lower bowens b Office Visit 11/18/2020 2:40p [facility] Anne-Marie Anderson.OJuancarlos B87.1 Wound myiasis F41.1 Generalized anxiety disorder Office Visit 11/11/2020 3:00p [facility] Shankar AndersonOJuancarlos Z48.02 Encounter for removal of sut ures B87.1 Wound myiasis Office Visit 09/30/2020 11:20a [facility] Shankar AndersonOJuancarlos R25.1 Tremor, unspecified R26.81 Unsteadiness on feet R29.6 Repeated falls Office Visit 08/20/2020 10:00a [facility] AFSHIN Waldrop S80.812A Abrasion, left lower leg, in itial encounter Z48.02 Encounter for removal of sut ures Assessments Date Code Description Provider 11/27/2020 L03.116 Cellulitis of left lower limb Anne-Marie Carias.OJuancarlos 11/18/2020 B87.1 Wound myiasis Anne-Marie Rivera.OJuancarlos 11/18/2020 F41.1 Generalized anxiety disorder Anne-Marie Littlejohn.OJuancarlos 11/11/2020 Z48.02 Encounter for removal of sutures Anne-Marie Anderson.OJuancarlos 11/11/2020 B87.1 Wound myiasis Anne-Marie Rivera.OJuancarlos 09/30/2020 R25.1 Tremor, unspecified Lina Starr D.OJuancarlos 09/30/2020 R26.81 Unsteadiness on feet Anne-Marie Nagy.OJuancarlos 09/30/2020 R29.6 Repeated falls Lina PetersonTami hobbs D.O. 08/20/2020 S80.812A Abrasion, left lower leg, initia l encounter AFSHIN Waldrop 08/20/2020 Z48.02 Encounter for removal of sutures AFSHIN Waldrop Plan of Treatment No Information Available Functional [...] Please evaluate and treat. Patient Notified 10/26/2020 [facility] [address] [place] [address] [phone]
--- OUTSIDE RECORDS SUMMARY | 2020-12-22 17:01 | CCD | Continuity of Care Document ---
Author Author Lyric OJEDA P.A.-C. Organization Unknown Address [address] [place] [address] Phone [phone] Care Team Providers Care Rn Perinatal Name Role Phone Lina Anguiano DO AUTM [...] Information Available Procedures Date Code Description Status 12/11/2020 54488 EEG Recording Awake & Drowsy Com pleted 11/18/2020 51037 Sympathetic Skin Responses Compl eted 11/18/2020 11462 Sympathetic Skin Responses Compl eted 11/18/2020 92755 Test Autonomic Nervous System, C ardiovagal Innervation Completed 11/18/2020 61069 Test Autonomic Nervous System, C ardiovagal Innervation Completed 11/05/2020 87185 MRI Spine Lumbar W/O Contrast Co mpleted 11/05/2020 13608 MRI Spine Lumbar W/O Contrast Co mpleted 11/05/2020 72575 MRI Brain W/O Contrast Completed 11/05/2020 34220 MRI Brain W/O Contrast Completed Medical Devices Description No Information Available Encounters Type Date Location Provider Dx Diagnosis Office Visit 10/26/2020 2:30p Main office - [place] Sonja Giles M.D. R26.2 Difficulty in walking, not elsewhere classified R25.8 Other abnormal involuntary m ovements M54.5 Low back pain M62.9 Disorder of muscle, unspecif ied Assessments Date Code Description Provider 12/15/2020 G25.0 Essential tremor Ashley Young.A.-C. 12/15/2020 R26.2 Difficulty in walking, not elsew here classified Ashley Young.A.-C. 12/15/2020 M54.5 Low back pain Adriana Ojeda P.A.-C. 12/11/2020 G25.0 Essential tremor EEG 12/11/2020 R25.8 Other abnormal involuntary movem ents EEG 11/18/2020 G60.8 Other hereditary and idiopathic neuropathies Alon MasseyDJuancarlos 11/18/2020 G60.8 Other hereditary and idiopathic neuropathies Ans/VS 11/05/2020 R25.8 Other abnormal involuntary movem ents FatoumataAlon LeungDJuancarlos 11/05/2020 R25.8 Other abnormal involuntary movem ents MRI 11/05/2020 R26.2 Difficulty in walking, not elsew here classified Fatoumata Tisha, M.DJuancarlos 11/05/2020 R26.2 Difficulty in walking, not elsew here classified MRI 10/26/2020 R26.2 Difficulty in walking, not elsew here classified SonjaRoman Miguel.DJuancarlos 10/26/2020 R25.8 Other abnormal involuntary movem ents Alon MasseyDJuancarlos 10/26/2020 M54.5 Low back pain Alon Massey DJuancarlos 10/26/2020 M62.9 Disorder of muscle, unspecified Sonja Giles M.D. Plan of Treatment No Information Available Functional Status Description No Information Available Mental Status Description No Information Available Referrals Description No Information Available
--- OUTSIDE RECORDS SUMMARY | 2020-12-22 17:01 | CCD | Continuity of Care Document ---
Author Author Lyric ANGUIANO D.O. Organization Unknown Address [address] [place] [address] Phone [phone] Care Team Providers Care Junior Qa Analyst Name Role Phone Lina Anguiano D.O. AUTM Shekhar Dominguez M.D. AUTM [phone] Guerline Steen AUTM [phone] Problems Active Problems Provider Date Infectious colitis, [...] 2015 Chronic kidney disease stage 5 AFSHIN Orteag Onset: 1 12/11/2016 End stage renal failure [...] F O2 % BldC Oximetry 99 % [place] Body Weight 125 lb 11/18/2020 2:56pm BP Systolic 122 mmHg BP Diastolic 78 mmHg Height 65.5 inches 5'5.50" Heart Rate 75 /min Respiratory Rate 18 /min Body Temperature 98.7 F O2 % BldC Oximetry 99 % [place] Body Weight 125 lb Results Test Acquired Date Facility Test Result H/L Range Note Wound Culture And Gram St 11/11/[address] [phone] Gram Stain (SEE NOTE) Normal 1 Wound Culture FULL REPORT IN L <SEE NOTE> Normal 2 Istat PT/Inr 11/06/2020 [facility] Outpatient Testi ng (Registration) [address] [place], [place] [phone] iSTAT Protime Seconds 62.5 seconds High 12.1-14. 4 iSTAT Inr 5.7 Critical high Complete Blood Count 11/06/2020 [facility] Outpatient Test ing (Registration) [address] [place] [address] [phone] White Blood Count 12.1 10 High 4.0-10.0 [...] 0.0 % Normal 0-0 Liver Profile 11/06/2020 [facility] Outpatient Testi ng (Registration) [address] [place] [phone] Ast/Sgot 16 U/L Normal 7-37 Alt/SGPT 15 U/L Normal 12-78 Alkaline Phosphatase 58 U/L Normal 45-117 Bilirubin,Total 0.4 mg/dL Normal 0.2-1.0 Bilirubin,Direct 0.1 mg/dL Normal 0.0-0.2 Total Protein 6.5 GM/DL Normal 6.4-8.2 Albumin 3.2 GM/DL Normal 3.2-5.2 Albumin/Globulin Ratio 1.0 Low 1.2-2.2 Basic Metabolic Profile 11/06/2020 [facility] Outpatient T randiing (Registration) [address] [place] [address] [phone] Glucose, Fasting 84 mg/dL Normal 70-100 Blood [...] 9.4 mg/dL Normal 8.8-10.2 Prothrombin Time/Inr 11/06/2020 [facility] Outpatient Test ing (Registration) [address] [place] [phone] Prothrombin Time 54.1 seconds High 12.5-14.3 Inr 5.88 Critical high 4 CBC With Differential 08/10/2020 [facility] Outpatient Joan ting (Registration) [address] [place] [address] [phone] White Blood Count 8.5 10 Normal 4.0-10.0 [...] 36.0-66.0 Lymph % 13.1 % Low 24.0-44.0 [place] % 6.4 % High 0.0-5.0 Eos % 0.8 % Normal 0.0-3.0 Baso % 0.8 % Normal 0.0-1.0 Immature Granulocyte % 0.4 % Normal 0-3.0 Nucleated Red Blood Cell % 0.0 % Normal 0-0 Neutrophils # 6.7 10 Normal 1.5-8.5 Lymph # 1.1 10 Low 1.5-5.0 [place] # 0.6 10 Normal 0.0-0.8 Eos # 0.1 10 Normal 0.0-0.5 Baso # 0.1 10 Normal 0.0-0.2 Prothrombin Time/Inr 08/10/2020 [facility] Outpatient Test ing (Registration) [address] [place] [address] [phone] Prothrombin Time 16.5 seconds High 12.5-14.3 Inr 1.30 Normal 5 Basic Metabolic Profile 08/10/2020 [facility] Outpatient T esting (Registration) [address] [place] [address] [phone] Glucose, Fasting 103 mg/dL High 70-100 Blood [...] Little GFR Left ESRD GFR <15 on CHAIRLIFT OPERATOR 4 THERAPUTIC HUMAN INR VALUES INDICATIONS [...] Little GFR Left ESRD GFR <15 on CHAIRLIFT OPERATOR Procedures Date Code Description Status 10/11/2016 [id number] Mammogram Completed Medical Devices Description No Information Available Encounters Type Date Location Provider Dx Diagnosis Office Visit 11/27/2020 1:20p Family [facility] Lina Anguiano D.O. L03.116 Cellulitis of left lower bowens b Office Visit 11/18/2020 2:40p [facility] Lina Anguiano D.O. B87.1 Wound myiasis F41.1 Generalized anxiety disorder Office Visit 11/11/2020 3:00p [facility] Lina Anguiano D.O. Z48.02 Encounter for removal of sut ures B87.1 Wound myiasis Office Visit 09/30/2020 11:20a [facility] Lina Anguiano D.O. R25.1 Tremor, unspecified R26.81 Unsteadiness on feet R29.6 Repeated falls Office Visit 08/20/2020 10:00a [facility] AFSHIN Waldrop S80.812A Abrasion, left lower leg, in itial encounter Z48.02 Encounter for removal of sut ures Assessments Date Code Description Provider 11/27/2020 L03.116 Cellulitis of left lower limb Suraj Anguiano D.O. 11/18/2020 B87.1 Wound myiasis Lina hobbs D.O. 11/18/2020 F41.1 Generalized anxiety disorder Genet Anguiano D.O. 11/11/2020 Z48.02 Encounter for removal of sutures Anne-Marie Anderson.O. 11/11/2020 B87.1 Wound myiasis Anne-Marie Rivera.O. 09/30/2020 R25.1 Tremor, unspecified Lina Starr D.O. 09/30/2020 R26.81 Unsteadiness on feet Lina Villa D.OJuancarlos 09/30/2020 R29.6 Repeated falls Anne-Marie Rivera.O. 08/20/2020 S80.812A Abrasion, left lower leg, initia l encounter AFSHIN Waldrop 08/20/2020 Z48.02 Encounter for removal of sutures AFHSIN Waldrop Plan of Treatment No Information Available [...] [facility] [address] [place] [address] [phone]
--- OUTSIDE RECORDS SUMMARY | 2020-12-22 17:01 | CCD | Continuity of Care Document ---
Author Author Lyric MCKAY Organization Unknown Address [address] [place] [address] Phone [phone] Care Team Providers Care Animal Husbandry Manager Name Role Phone Lina Anguiano DO AUTM [...] Available Procedures Date Code Description Status 12/11/2020 61056 EEG Recording Awake & Drowsy Com pleted 11/18/2020 31016 Sympathetic Skin Responses Compl eted 11/18/2020 93183 Sympathetic Skin Responses Compl eted 11/18/2020 76197 Test Autonomic Nervous System, C ardiovagal Innervation Completed 11/18/2020 15726 Test Autonomic Nervous System, C ardiovagal Innervation Completed 11/05/2020 91383 MRI Spine Lumbar W/O Contrast Co mpleted 11/05/2020 16570 MRI Spine Lumbar W/O Contrast Co mpleted 11/05/2020 88906 MRI Brain W/O Contrast Completed 11/05/2020 00417 MRI Brain W/O Contrast Completed Medical Devices Description No Information Available Encounters Type Date Location Provider Dx Diagnosis Office Visit 10/26/2020 2:30p Main office - [place] Sonja Giles M.D. R26.2 Difficulty in walking, not elsewhere classified R25.8 Other abnormal involuntary m ovements M54.5 Low back pain M62.9 Disorder of muscle, unspecif ied Assessments Date Code Description Provider 12/11/2020 G25.0 Essential tremor EEG 12/11/2020 R25.8 Other abnormal involuntary movem ents EEG 11/18/2020 G60.8 Other hereditary and idiopathic neuropathies SonjaRoman Miguel.DJuancarlos 11/18/2020 G60.8 Other hereditary and idiopathic neuropathies Ans/VS 11/05/2020 R25.8 Other abnormal involuntary movem ents Fatoumata Tisha, M.DJuancarlos 11/05/2020 R25.8 Other abnormal involuntary movem ents MRI 11/05/2020 R26.2 Difficulty in walking, not elsew here classified Fatoumata Tisha, M.DJuancarlos 11/05/2020 R26.2 Difficulty in walking, not elsew here classified MRI 10/26/2020 R26.2 Difficulty in walking, not elsew here classified Sonjaus Tisha M.D. 10/26/2020 R25.8 Other abnormal involuntary movem ents Alon MasseyDJuancarlos 10/26/2020 M54.5 Low back pain Alon Massey DJuancarlos 10/26/2020 M62.9 Disorder of muscle, unspecified Sonja Giles M.D. Plan of Treatment Future Appointment(s):* 12/15/2020 1:00 pm - Adriana Ojeda P.A.-C. at [facility] Functional Status Description No Information Available Mental Status Description No Information Available Referrals Description No Information Available
--- OUTSIDE RECORDS SUMMARY | 2020-12-22 17:01 | CCD ---
Author Author [facility] Organization [facility] Address Unknown Phone Unavailable Care Team Providers Care Information Systems Operator Name Role Phone TonirowanAntony Unavailable PROBLEMS Type Condition ICD9-CM Code [id number] Code Onset Dates Condition S tatus W/U Status Risk SNOMED Code Notes Problem Non-pressure chronic ulcer o f other part of unspecified foot with unspecified severity L97.509 Active confirmed 599780007 Problem Postoperative wound dehiscence, subsequent encounter T81.31XD Active confirmed 593654025 Problem Type 2 diabetes mellitus with foot ulcer E11.621 Active confirmed 091585758 Problem 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 L97.313 Active confirmed 002066689 Problem Chronic osteomyelitis involving right ankle and foot M86.671 Active confirmed 648463533 Problem Paroxysmal atrial fibrillation I48.0 Active confir med 760531066 Problem Polymicrobial bacterial infection A49.9 Active con firmed 2945349 Problem Xerosis cutis L85.3 Active confirmed 420421 00 Problem Actinic keratoses L57.0 Active confirmed 40 9388590 Problem Non-pressure chronic ulcer o f other part of left lower leg with fat layer exposed L97.822 Active confirmed 18894129 Problem Depressive disorder F32.9 Active confirmed 26913181 Problem Chronic venous hypertension (idiopathic) with inflammation of right lower extremity I87.321 Active confirmed 891590106 Problem Postoperative wound dehiscence T81.31XA Active conf irmed 04508026 Problem Seborrheic keratoses L82.1 Active confirmed 993139492 Problem 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 Active confirmed 194971471 Problem 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 Active confirmed 629602562 Problem Basal cell carcinoma of back C44.519 Active confirm ed 022639186 ALLERGIES Allergen (clinical drug ingredient) Drug/Non Drug Allergy do cumented on EMR Reaction Allergy Type Onset Date Status adhesive tape ,use paper tape only Unknown Non Drug All ergy Active Sulfa (for allergy use only) GI problems Drug Allergy Active acetaminophen / oxycodone Percocet([facility] Code:[address]-73) GI pr oblems Drug Allergy Active ENCOUNTERS from 1950 to 2020-12-10 Encounter Location Date Provider Diagnosis [facility] [address] [place] [address] 10 Nov Antony Mosher IMMUNIZATIONS Vaccine Route Administration Date Status Influenza (High Dose 65 & up) Unknown Dec 18, 2017 Re fused SOCIAL HISTORY Tobacco Use: Social History Observation Description Date Details (start date - stop date) Former Smoker Sex Assigned At : Social History Observation Description Sex Assigned At Unknown Education: Question Answer Notes Level of Education: Not Finished College Language: Question Answer Notes Languages spoken: Armenian Jainism: Question Answer Notes Jainism No amish beliefs that would impact health care. Sexual Hx: Question Answer Notes Had sex in the last 12 months (vaginal, oral, or anal)? No Have you ever had an STD? No Alcohol Screening: Question Answer Notes Did you have a drink containing alcohol in the past year? Ye s Points 1 Interpretation Negative How often did you have six or more drinks on one occas ion in the past year? Never (0 points) How many drinks did you have on a typica l day when you were drinking in the past year? 1 or 2 (0 points) How often did you have a drink containing alcohol in t he past year? Monthly or less (1 point) Tobacco Use: Question Answer Notes Are you a: former smoker How long has it been since you last smoked? 5-10 years REASON FOR REFERRAL No Information VITAL SIGNS No information MEDICATIONS Medication SIG (Take, Route, Frequency, Duration) Notes Start Da te End Date Status Gabapentin 100 MG 1 capsule Orally Daily Unknown Coumadin 7.5 MG 1 tablet Orally Once a day Unknown Flonase Allergy Relief 50 MCG/ACT 1 spray in each nostril Nasall y Once a day Unknown Januvia 25 mg Orally before bedtime Unknown Colace 100 MG 1 capsule as needed Orally Once a day for 30 day(s) Active Megestrol Acetate 40 MG 1 tablet Orally Daily Active Claritin 10 MG 1 tablet Orally Once a day Unknown Pantoprazole Sodium 40 MG 1 tablet Orally Once a day for 30 day(s) Active Megestrol Acetate 40 MG 1 tablet Orally every 6 hours Active Bacid - Orally Unknown Propafenone HCl 300 MG 1 tablet Orally twice daily Active Ondansetron HCl 4 MG 1 tablet Orally Once a day for 30 day(s) Active Atorvastatin Calcium 10 MG 1 tablet Orally Once a day Unknown Carvedilol 12.5 MG Orally bid Activ e Tayler 1 tab orally Daily as needed Active Propafenone HCl 300 MG 1 tablet Orally bid Unknown MiraLax - 1 packet mixed with 8 ounces of fluid Orally Once a day Unknown Losartan Potassium 25 MG 1 tablet Orally bid Unknown Ferrous Sulfate 325 MG 1 tablet Orally before bedtime Unknown Acetaminophen 500 MG 1 capsule as needed Orally every 6 hrs Unknown Renal-Melany 0.8 MG 1 tablet Orally Once a day Unknown Cipro 500 MG 1 tablet Orally Daily for 28 day(s) Aug, 018 Unknown Omeprazole 40 MG 1 packet Orally Daily Unknown MiraLax 17 GM/SCOOP as needed Orally Active Duricef 500 mg as directed oral Daily at bed for 30 day(s) Aug, Unknown Raloxifene HCl 60 MG 1 tablet Orally Once a day Active BuPROPion HCl ER (XL) 300 MG 1 tablet in the morning Orally Daily Active Tylenol Extra Strength 500 MG 1 tablet as needed Orally Active Flonase Daily as needed Active PROCEDURES No Information RESULTS No Results REASON FOR VISIT Supplies MEDICAL (GENERAL) HISTORY Type Description Date Medical History Type 2 Diabetes Medical History Hypertension Medical History High Cholesterol Medical History CKD - on dialysis Medical History A-Fib Medical History Cataracts Medical History anxiety and depression Surgical History Hysterectomy 1985 Surgical History Peritoneal Dialysis Access 2016 Surgical History Reconstructive right ankle surgery 2018 Surgical History Dialysis Fistula 2016 Surgical History Right Cataract Removed 2016 Surgical History Left cataract removed 2015 Hospitalization History Dehydration October 2016 Hospitalization History r/t surgery Hospitalization History right ankle osteomyeltitis 2018 Hospitalization History R hip fx 2020 Goals Section No Information Health Concerns No Information MEDICAL EQUIPMENT No Information MENTAL STATUS No Information FUNCTIONAL STATUS No Information ASSESSMENTS No Information PLAN OF TREATMENT Next Appt Details Provider Name:Antony Mosher, 03:00:00 PM, [address] [place], [address], Insurance Providers Payer Name Payer Address Payer Phone Insured Name Patient Relati onship to Insured Coverage Start Date Coverage End Date [facility] FEDERAL [address] [address] [facility] [address] ALANNA CARRILLO self MEDICARE Part A and B [address] [facility] [phone] ALANNA CARRILLO self
--- OUTSIDE RECORDS SUMMARY | 2020-12-22 17:01 | CCD ---
Author Author [facility] Organization [facility] Address Unknown Phone Unavailable Care Team Providers Care Backup Sawyer Name Role Phone TonirowanAntony Unavailable PROBLEMS Type Condition ICD9-CM Code [id number] Code Onset Dates Condition S tatus W/U Status Risk SNOMED Code Notes Problem Non-pressure chronic ulcer o f other part of unspecified foot with unspecified severity L97.509 Active confirmed 011111292 Problem Postoperative wound dehiscence, subsequent encounter T81.31XD Active confirmed 884159143 Problem Type 2 diabetes mellitus with foot ulcer E11.621 Active confirmed 914679750 Problem 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 L97.313 Active confirmed 946155041 Problem Chronic osteomyelitis involving right ankle and foot M86.671 Active confirmed 848185098 Problem Paroxysmal atrial fibrillation I48.0 Active confir med 889696889 Problem Polymicrobial bacterial infection A49.9 Active con firmed 8801715 Problem Xerosis cutis L85.3 Active confirmed 015329 00 Problem Actinic keratoses L57.0 Active confirmed 40 7981827 Problem Non-pressure chronic ulcer o f other part of left lower leg with fat layer exposed L97.822 Active confirmed 72311272 Problem Depressive disorder F32.9 Active confirmed 93594273 Problem Chronic venous hypertension (idiopathic) with inflammation of right lower extremity I87.321 Active confirmed 558932733 Problem Postoperative wound dehiscence T81.31XA Active conf irmed 72119134 Problem Seborrheic keratoses L82.1 Active confirmed 034056302 Problem 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 Active confirmed 384808034 Problem 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 Active confirmed 822742098 Problem Basal cell carcinoma of back C44.519 Active confirm ed 416327732 ALLERGIES Allergen (clinical drug ingredient) Drug/Non Drug Allergy do cumented on EMR Reaction Allergy Type Onset Date Status adhesive tape ,use paper tape only Unknown Non Drug All ergy Active Sulfa (for allergy use only) GI problems Drug Allergy Active acetaminophen / oxycodone Percocet([facility] Code:[address]-83) GI pr oblems Drug Allergy Active ENCOUNTERS from 1950 to 2020-12-10 Encounter Location Date Provider Diagnosis [facility] [address] [place] [address] 10 Nov Antony Mosher IMMUNIZATIONS Vaccine Route [...] College Language: Question Answer Notes Languages spoken: Mauritanian Advent: Question Answer Notes Advent No sikh beliefs that would impact health care. Sexual [...] Information RESULTS No Results REASON FOR VISIT fyi MEDICAL (GENERAL) HISTORY Type Description Date Medical [...] osteomyeltitis 2018 Hospitalization History R hip fx 2019 Goals Section No Information Health Concerns No Information MEDICAL EQUIPMENT No Information MENTAL STATUS No Information FUNCTIONAL STATUS No Information ASSESSMENTS No Information PLAN OF TREATMENT Next Appt Details Provider Name:Antony Mosher, 03:00:00 PM, [place], [address], Insurance Providers Payer Name Payer Address Payer Phone Insured Name Patient Relati onship to Insured Coverage Start Date Coverage End Date [facility] FEDERAL [address] [address] [facility] [place] [id number] ALANNA CARRILLO self MEDICARE Part A and B [address] [facility] [phone] ALANNA CARRILLO self
--- OUTSIDE RECORDS SUMMARY | 2020-12-22 17:02 | CCD ---
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 Name Role Phone Kocan, J Antoinette PILL MACHINE OPERATOR Unavailable Unavailable Kocan, J Antoinette PILL MACHINE OPERATOR Unavailable Unavailable Kocan, J Antoinette PILL MACHINE OPERATOR Unavailable Unavailable Kocan, J Antoinette PILL MACHINE OPERATOR Unavailable Unavailable Kocan, J Antoinette PILL MACHINE OPERATOR Unavailable Unavailable Kocan, J Antoinette PILL MACHINE OPERATOR Unavailable Unavailable Kocan, J Antoinette PILL MACHINE OPERATOR Unavailable Unavailable Kocan, J Antoinette PILL MACHINE OPERATOR Unavailable Unavailable Kocan, J Antoinette PILL MACHINE OPERATOR Unavailable Unavailable Kocan, J Antoinette PILL MACHINE OPERATOR Unavailable Unavailable Kocan, J Antoinette PILL MACHINE OPERATOR Unavailable Unavailable Kocan, J Antoinette PILL MACHINE OPERATOR Unavailable Unavailable Kocan, J Antoinette PILL MACHINE OPERATOR Unavailable Unavailable Anneliese LESTER DPM Unavailable Unavailable [...] [facility]IS[facility], ANAYA BEJARANO Unavailable Unavailable [facility], ANAYA BEJARANO Unavailable Unavailable [...] Unavailable Hiram, Fab PA Unavailable Unavailable Hiram, Afb PA Unavailable Unavailable Hiram, Fab PA Unavailable [...] Unavailable Unavailable ANDREWS-LEONORA, ERIC DO Unavailable Unavailable NADREWS-LEONORA, ERIC DO Unavailable Unavailable ANDREWS-LEONORA, ERIC DO [...] Unavailable ANDREWS-LEONORA, ERIC DO Unavailable Unavailable ANDREWS-LEONORA, REIC DO Unavailable Unavailable ANDREWS-LEONORA, ERIC DO Unavailable Unavailable ANDREWS-LEONORA, ERIC DO Unavailable Unavailable ANDREWS-LEONORA, ERIC DO Unavailable Unavailable ANDREWS-LEONORA, ERIC DO Unavailable Unavailable ANDREWS-LEONORA, ERIC DO Unavailable Unavailable ANDRESW-LEONORA, ERIC DO Unavailable Unavailable ANDREWS-LEONORA, ERIC DO [...] is protected by Article 27-F of the [facility] Public Health law. If you continue you may have access to information: Regarding HIV / AIDS; Provided by facilities licensed or operated by the [facility] Office of Mental Health; or Provided by the [facility] Office for People With Developmental Disabilities. If such information is present, then the following [facility] mandated warning applies: This information has [...] law may result in a fine or intermediate sentence or both. A general authorization for the release of medical or other information is NOT sufficient authorization for further disc losure. Family History Family Member Name Family Member Gender Family Member Status Date o f Status Description Data Source(s) Unknown Female Problem MEDENT ([facility]) Unknown Female Problem MEDENT ([facility] ) Unknown Male Problem MEDENT ([facility] Unknown Female Problem MED[facility] ([facility] Unknown Female Problem MEDENT ([facility]) Unknown Female Problem MEDENT ([facility]) Unknown Male Problem [facility] ([facility] Encounters Encounter Providers Location Date Indications Data Source(s ) [place] [address] [facility] [address] [place]/09/2020 12:00:00 AM EST eCW1 ([facility]) [place] [address] [facility] [address] 12/09/2020 12:00:00 AM EST eCW1 ([facility]) [place] [address] [facility] [address] 12/09/2020 12:00:00 AM EST eCW1 ([facility]) Outpatient Attender: ERIC PALACIOS [facility] 11/27/2020 12:20:00 PM EST [facility] ([facility]) Outpatient Attender: ERIC PALACIOS [facility] 11/18/2020 01:40:00 PM EST MEDENT ([facility]) Outpatient Attender: ERIC PALACIOS [facility] 11/11/2020 02:00:00 PM EST MED[facility] ([facility]) Outpatient PCHAUNCEY.MATTI 11/09/2020 12:00:00 AM EST [facility] Outpatient SJP.MATTI-CHRISTOPHERP.MATTI 11/06/2020 12:00:00 AM EST [facility] Outpatient Attender: ANAYA SAAB MD Main office - [facility] 10/26/2020 01:30:00 PM EST MEDENT ([facility]) Outpatient SJP.MATTI-WALLY.MATTI 10/21/2020 12:00:00 AM EST [facility] Outpatient Attender: Antoinette Torres PILL MACHINE OPERATOR [facility]-CHRISTOPHERP.MATTI 2019 12:00:00 AM EST - 10/07/2020 04:30:16 PM EST [facility] Outpatient SJPCHAUNCEY.MATTI 10/07/2020 12:00:00 AM EST [facility] Outpatient SJP.MATTI-SJP.MATTI 10/05/2020 11:18:43 AM EST [facility] Outpatient Attender: ERIC PALACIOS DO [facility] 09/30/2020 10:20:00 AM EST MEDENT ([facility]) Outpatient SJP.MATTI-SJP.MATTI 09/23/2020 12:00:00 AM EST [facility] Outpatient SJP.MATTI-SJP.MATTI 09/16/2020 12:00:00 AM EST [facility] Outpatient SJP.MATTI-SJP.MATTI 09/09/2020 12:00:00 AM EST [facility] Outpatient SJP.MATTI-SJP.MATTI 09/02/2020 12:00:00 AM EST [facility] Outpatient SJP.MATTI-SJP.MATTI 08/26/2020 10:53 :12 AM EDT - 08/26/2020 11:10:16 AM EDT [facility] Outpatient SJP.MATTI-SJP.MATTI 08/26/2020 10:52 :49 AM EDT - 08/26/2020 11:01:00 AM EDT [facility] Outpatient Attender: Pradip PEPE [facility] 08/20/2020 10:00:00 AM EDT MEDENT ([facility]) Outpatient Attender: AGNIESZKA RICKS MD SJP.MATTI-SJP.MATTI 0 12:00:00 AM EDT - 08/19/2020 12:08:56 PM EDT [facility] Outpatient Attender: REAGAN LESTER [facility] 07/31 10:15:00 AM EDT MEDENT ([facility] Outpatient SJP.MATTI-SJP.MATTI 08/12/2020 12:00:00 AM EDT [facility] Outpatient SJP.MATTI-SJP.MATTI 07/29/2020 12:00:00 AM EDT [facility] Outpatient SJP.MATTI-SJP.MATTI 07/17/2020 12:00:00 AM EDT [facility] Outpatient 07/13/2020 12:00:00 AM EDT [facility] Outpatient SJP.MATTI-SJP.MATTI 06/05/2020 12:00:00 AM EDT [facility] Outpatient Attender: Fab PEPE [facility] 05/26/2020 01:40:00 PM EDT MEDENT ([facility]) Outpatient Attender: Fab PEPE [facility] 04/16/2020 11:20:00 AM EDT MEDENT ([facility]) Outpatient SJP.MATTI-SJP.MATTI 04/10/2020 12:00:00 AM EDT [facility] Outpatient SJP.MATTI-SJP.MATTI 02/21/2020 12:00:00 AM EDT [facility] Outpatient SJP.MATTI-SJP.MATTI 01/31/2020 12:00:00 AM EDT [facility] Outpatient SJP.MATTI-SJP.MATTI 01/24/2020 08:42:39 AM EDT [facility] Outpatient SJP.MATTI-SJP.MATTI 01/10/2020 12:00:00 AM EDT [facility] Outpatient SJP.AMTTI-SJP.MATTI 12/25/2019 08:54:16 AM EST [facility] Outpatient SJP.MATTI-SJP.MATTI 12/18/2019 12:00:00 AM EST [facility] Outpatient SJP.MATTI-SJP.MATTI 11/20/2019 12:00:00 AM EST [facility] Medications Medication Brand Name Start Date Product Form Dose Route Admi nistrative Instructions Pharmacy Instructions Status Indications Reaction Description Data Source(s) Citalopram 20 MG Oral Tablet CITALOPRAM HYDROBROMIDE 12/04/2020 12:00:00 AM EST tablet 30 TAKE ONE TABLET BY MOUTH EVERY D AY TAKE ONE TABLET BY MOUTH EVERY DAY SOLD: 12/10/2020 [facility] 2 % 11/18/2020 12:00:00 AM EST ointment [...] 11/13/2020 12:00:00 AM EST ORAL completed MED[facility] ([facility]) Citalopram 20 MG Oral Tablet CITALOPRAM HYDROBROMIDE 11/12/2020 12:00:00 AM EST tablet 30 TAKE ONE TABLET BY MOUTH EVERY D AY TAKE ONE TABLET BY MOUTH EVERY DAY SOLD: 11/14/2020 [facility] 2 % 11/11/2020 12:00:00 AM EST ointment 22 APPLY TO WOULD LEFT LOWER LEG TWO TIMES A DAY UNTIL RESOLVED APPLY TO WOULD LEFT LOWER LEG TWO TIMES A DAY UNTIL RESOLVED SOLD: 11/12/2020 [facility] Mupirocin 0.02 MG/MG Topical Ointment Mupirocin 11/11/2020 12:00:00 AM EST active MEDENT ([facility]) Citalopram 20 MG Oral Tablet [Celexa] Celexa 11/11/2020 12:00:00 AM EST ORAL active MEDENT ([facility]) 40 mg 11/06/2020 12:00:00 AM EST tablet [...] mouth 2 (t wo) times a day [facility] Atrial fibrillation 500 mg 09/22/2020 12:00:00 AM [...] by mouth 2 (two) times a day [facility] Megestrol Acetate 40 MG Oral Tablet megestrol (MEGACE) 40 MG tablet megestrol (MEGACE) 40 MG tablet 06/02/2020 12:00:00 AM EDT 4 {tbl} Oral active Take 4 tablets by mouth [facility] 250 mg 06/01/2020 12:00:00 AM EDT tablet 3 TAKE ONE TABLET BY MOUTH EVERY DAY FOR 3 DAYS TAKE ONE TABLET BY MOUTH EVERY DAY FOR 3 DAYS SOLD: 06/02/2020 [facility] Warfarin Sodium 1 MG Oral Tablet [...] tablet (3 mg total) by mouth daily [facility] 40 mg 04/18/2020 12:00:00 AM EDT tablet 59 TAKE ONE TABLET BY MOUTH EVERY 6 HOURS TAKE ONE TABLET BY MOUTH EVERY 6 HOURS SOLD: 04/24/2020 [facility] Megestrol Acetate 40 MG Oral Tablet Megestrol Acetate 03/31 12:00:00 AM EDT ORAL active MEDENT ([facility]) 4 mg 04/16/2020 12:00:00 AM EDT tablet [...] active Heparin Sodium (Porcine) 1,000 Units/mL [facility] 5 mg 04/02/2020 12:00:00 AM EDT tablet [...] TABLET BY MOUTH EVERY DAY SOLD: 04/06/2020 [facility] carvedilol 12.5 [...] TIMES A DAY WITH MEALS SOLD: 06/19/2020 [facility] carvedilol 12.5 MG Oral Tablet CARVEDILOL 01/22/2020 12:00:00 AM EDT tablet 180 TAKE 1 TABLET BY MOUTH TWO TIMES A DAY WITH MEALS TAKE 1 TABLET BY MOUTH TWO TIMES A DAY WITH MEALS SOLD: 09/03/2020 [facility] carvedilol 12.5 MG Oral Tablet [...] 2 (two) times a day with meals [facility] 5 mg 12/20/2019 12:00:00 AM EST tablet 90 TAKE 1 TABLET BY MOUTH ONCE DAILY TAKE 1 TABLET BY MOUTH ONCE DAILY SOLD: 12/23/2019 [facility] 2.5 mg 12/20/2019 12:00:00 AM EST tablet 90 TAKE ONE TABLET BY MOUTH EVERY DAY TAKE ONE TABLET BY MOUTH EVERY DAY SOLD: 12/23/2019 [facility] carvedilol 12.5 MG Oral Tablet CARVEDILOL 07/29/2019 12:00:00 AM EDT tablet 180 TAKE ONE TABLET BY MOUTH TWICE A DAY TAKE ONE TABLET BY MOUT H TWICE A DAY SOLD: 11/01/2019 [facility] 40 mg 07/17/2019 12:00:00 AM EDT tablet,delayed release (DR/EC) 90 TAKE ONE TABLET BY MOUTH EVERY DAY TAKE ONE TABLET BY MOUTH EVERY DAY SOLD: 11/01/2019 [facility] 4 mg 07/17/2019 12:00:00 AM EDT tablet 30 TAKE 1 TABLET BY MOUTH EVERY 4 HOURS FOR NAUSEA TAKE 1 TABLET BY MOUTH EVERY 4 HOURS FOR NAUSEA SOLD: 12/09/2019 [facility] Ondansetron 4 MG Oral Tablet ondansetron (ZOFRAN) 4 MG tablet ondansetron (ZOFRAN) 4 MG tablet 07/17/2019 12:00:00 AM EDT ab orted [facility] prednisolone acetate 10 MG/ML Ophthalmic Suspension prednisoLONE acetate (PRED FORTE) 1 % ophthalmic suspension prednisoLONE acetate (PRED FORTE) 1 % ophthalmic suspension 05/15/2019 12:00:00 AM EDT aborted INSTILL 1 DROP IN THE LEFT EYE FOUR TIMES A DAY [facility] sitagliptin 25 MG Oral Tablet sitaGLIPtin (JANUVIA) 25 MG tablet sitaGLIPtin (JANUVIA) 25 MG tablet 08/03/2018 12:00:00 AM EDT 25 mg Oral aborted Take 25 mg by mouth [facility] fluticasone (VERAMYST) 27.5 MCG/SPRAY nasal spray 460251 2 {spray} Nasal aborted 2 sprays into each nostril [facility] ferrous sulfate 325 MG Oral Tablet ferrous sulfate 325 (65 FE) MG tablet ferrous sulfate 325 (65 FE) MG tablet aborted FERROUS SULFATE 325 (65 Fe) MG TABS [facility] Ergocalciferol 61077 UNT Oral Capsule er gocalciferol (ERGOCALCIFEROL) 37623 units capsule ergocalciferol (ERGOCALCIFEROL) 77828 units capsule 50266 U Oral aborted Take 50,000 Units by mouth [facility] Losartan Potassium 50 MG Oral Tablet losartan (COZAAR) 50 MG tablet losartan (COZAAR) 50 MG tablet 50 mg Oral aborted Ta ke 50 mg by mouth [facility] Calcitriol 0.13390 MG Oral Capsule calcitriol (ROCALTR OL) 0.25 MCG capsule calcitriol (ROCALTROL) 0.25 MCG capsule 0.25 ug Oral aborted Take 0.25 mcg by mouth daily [facility] Hydralazine Hydrochloride 25 MG Oral Tab let hydrALAZINE (APRESOLINE) 25 MG tablet hydrALAZINE (APRESOLINE) 25 MG tablet 25 mg Oral aborted Take 25 mg by mouth 2 (two) times a day [facility] cetirizine hydrochloride 10 MG Oral Tablet cetirizine (ZYRTEC) 10 MG tablet cetirizine (ZYRTEC) 10 MG tablet 10 mg Oral abort ed Take 10 mg by mouth daily [facility] Probiotic Product (PROBIOTIC DAILY PO) Oral aborted Take by mouth [facility] POLYETHYLENE GLYCOL 3350 142 MG/ML Oral Solution polyethylene glycol (GLYCOLAX) packet polyethylene glycol (GLYCOLAX) packet Oral aborted Take by mouth [facility] Darbepoetin Raul-Albumin (ARANESP IJ) aborted Inject as directed every 30 (thirty) days [facility] Cholecalciferol 5000 UNT Oral Capsule Ch olecalciferol (VITAMIN D3) 5000 UNITS capsule Cholecalciferol (VITAMIN D3) 5000 UNITS capsule 5000 U Oral aborted Take 5,000 Units by mouth daily [facility] Omeprazole 40 MG Delayed Release Oral Ca psule omeprazole (PRILOSEC) 40 MG capsule omeprazole (PRILOSEC) 40 MG capsule 40 mg Oral aborted Take 40 mg by mouth daily [facility] atorvastatin 10 MG Oral Tablet atorvastatin (LIPITOR) 10 MG tablet atorvastatin (LIPITOR) 10 MG tablet 10 mg Oral aborted T young 10 mg by mouth daily [facility] Insurance Providers Payer name Policy type / Coverage type Policy ID Covered constitution party ID Covered constitution party's relationship to merchant Policy Merchant Plan Information MEDICARE [id number] SP [id number] [facility] 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 [id number] SP [id number] [facility] 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 [id number] SP [id number] MEDICARE C [id number] S [id number] V65 [place] [employer] FEDERAL B [id number] S [id number] MEDICARE [id number] [place] [id number] V65 [employer] BCBS [id number] Doreen [id number] EXCELLUS BCBS [id number] MEDICARE [id number] EXCELLUS C [id number] Self [id number] MEDICARE A [id number] Self [id number] MEDICARE [id number] SP [id number] [id number] [employer] [place] Commercial [id number] Self [id number] BS Federal Commercial [id number] Self [id number] Medicare [place] Primary [id number] Self [id number] [employer] U/[employer] Commercial [id number] Self [id number] BS Federal Commercial [id number] Self [id number] [place] Primary [id number] Self [id number] ANSI-Not a Secondary Insurance [id number] ANSI-Medicare Part B [id number] ANSI-Medicare Part B [id number] ANSI-Not a Secondary Insurance [id number] ANSI-Not a Secondary Insurance [id number] ANSI-Medicare Part B [id number] ANSI-Not a Secondary Insurance [id number] ANSI-Medicare Part B [id number] ANSI-Not a Secondary Insurance [id number] ANSI-Medicare Part B [id number] ANSI-Medicare Part B [id number] ANSI-Not a Secondary Insurance [id number] ANSI-Not a Secondary Insurance [id number] ANSI-Medicare Part B [id number] [facility] U/W Commercial [id number] Self [id number] BS Federal Commercial [id number] Self [id number] [place] Primary [id number] Self [id number] ANSI-Not a Secondary Insurance [id number] ANSI-Medicare Part B [id number] Acc/Dol ([place]) () Workers Compensation [id number] Self [id number] [facility] Medigap Part B [id number] Self [id number] Medicare Dme Supplies Medigap Part B [id number] Self [id number] Medicare [facility] Medicare Primary [id number] Self [id number] BS [place] Medigap Part B [id number] Self [id number] BS Fed Plan Medigap Part B [id number] Self [id number] ANSI-Medicare Part B [id number] ANSI-Not a Secondary Insurance [id number] ANSI-Not a Secondary Insurance [id number] ANSI-Medicare Part B [id number] ANSI-Medicare Part B [id number] ANSI-Not a Secondary Insurance [id number] ANSI-Medicare Part B [id number] ANSI-Not a Secondary Insurance [id number] ANSI-Not a Secondary Insurance [id number] ANSI-Medicare Part B [id number] [facility] U/W Commercial [id number] Self [id number] Federal Commercial [id number] Self [id number] [place] Primary [id number] Self [id number] ANSI-Not a Secondary Insurance [id number] ANSI-Medicare Part B [id number] ANSI-Medicare Part B [id number] ANSI-Not a Secondary Insurance [id number] ANSI-Medicare Part B [id number] ANSI-Not a Secondary Insurance [id number] [facility] U/W Commercial [id number] Self [id number] Federal Commercial [id number] Self [id number] Medicare [place] Primary [id number] Self [id number] ANSI-Not a Secondary Insurance [id number] ANSI-Medicare Part B [id number] [facility] Medigap Part B [id number] Self [id number] Medicare [place]/[facility] Medicare Primary [id number] Self [id number] MEDICARE [id number] SP [id number] ANSI-Medicare Part B [id number] ANSI-Not a Secondary Insurance [id number] Acc/Dol ([place]) () Workers Compensation [id number] Self [id number] [facility] [place] Medigap Part B [id number] Self [id number] Medicare Dme Supplies Medigap Part B [id number] Self [id number] [place] Primary [id number] Self [id number] EXCELLUS C [id number] Self [id number] ANSI-Medicare Part B [id number] ANSI-Not a Secondary Insurance [id number] ANSI-Not a Secondary Insurance [id number] ANSI-Medicare Part B [id number] ANSI-Not a Secondary Insurance [id number] ANSI-Medicare Part B [id number] ANSI-Not a Secondary Insurance [id number] ANSI-Medicare Part B [id number] MEDICARE A [id number] Self [id number] ANSI-Medicare Part B [id number] ANSI-Not a Secondary Insurance [id number] MEDICARE C [id number] S [id number] Acc/Dol ([place]) () Workers Compensation [id number] Self [id number] [facility] [place] Medigap Part B [id number] Self [id number] Medicare Dme Supplies Medigap Part B [id number] Self [id number] [place] Primary [id number] Self [id number] [facility] U/W Commercial [id number] Self [id number] BS [facility] Commercial [id number] Self [id number] [place] Primary [id number] Self [id number] Acc/Dol ([place]) () Workers Compensation [id number] Self [id number] [facility]/S[place] Medigap Part B [id number] Self [id number] Medicare Dme Supplies Medigap Part B [id number] Self [id number] [place] [id number] Self [id number] Acc/Dol ([place]) () Workers Compensation [id number] Self [id number] [facility]/SNF Medigap Part B [id number] Self [id number] Medicare Dme Supplies Medigap Part B [id number] Self [id number] [place] [id number] Self [id number] BCBS 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 [id number] SP [id number] MEDICARE [id number] SP [id number] Acc/Dol ([place]) () Workers Compensation [id number] Self [id number] [facility]/SNF Medigap Part B [id number] Self [id number] Medicare Dme Supplies Medigap Part B [id number] Self [id number] [place] [id number] Self [id number] Acc/Dol ([place]) () Workers Compensation [id number] Self [id number] [facility]/SNF Medigap Part B [id number] Self [id number] Medicare Dme Supplies Medigap Part B [id number] Self [id number] [place] [id number] Self [id number] Acc/Dol ([place]) () Workers Compensation [id number] Self [id number] [facility]/SNF Medigap Part B [id number] Self [id number] Medicare Dme Supplies Medigap Part B [id number] Self [id number] [place] [id number] Self [id number] [employer] U/W Commercial [id number] Self [id number] [place] Primary [id number] Self [id number] Acc/Dol ([place]) () Workers Compensation [id number] Self [id number] Medicare Dme Supplies Medigap Part B [id number] Self [id number] [place] Primary [id number] Self [id number] [facility] 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 [id number] SP [id number] Acc/Dol ([place]) () Workers Compensation [id number] Self [id number] [place] Primary [id number] Self [id number] Acc/Dol ([place]) () Workers Compensation [id number] Self [id number] [place] [id number] Self [id number] Acc/Dol ([place]) () Workers Compensation [id number] Self [id number] [place] Primary [id number] Self [id number] Acc/Dol ([place]) () Workers Compensation [id number] Self [id number] [place] Primary [id number] Self [id number] EXCELLUS BCBS FEDERAL [id number] SP [id number] EXCELLUS BCBS FEDERAL [id number] SP [id number] Blue Shield Federal Medigap Part B [id number] Self [id number] [place] Medicare Primary [id number] Self [id number] [employer] U/W Commercial [id number] Self [id number] [place] Primary [id number] Self [id number] Blue Shield Federal Medigap Part B [id number] Self [id number] [place]/N[place] Medicare Primary [id number] Self [id number] Blue Shield Federal Medigap Part B [id number] Self [id number] [place] Medicare Primary [id number] Self [id number] [employer] U/W Commercial [id number] Self [id number] [place] Primary [id number] Self [id number] [employer] U/W Commercial [id number] Self [id number] [place] [id number] Self [id number] Blue Shield Federal Medigap Part B [id number] Self [id number] [place] Primary [id number] Self [id number] Blue Shield Federal Medigap Part B [id number] Self [id number] [place] Medicare Primary [id number] Self [id number] [employer] U/W Commercial [id number] Self [id number] [place] Primary [id number] Self [id number] Blue Shield Federal Medigap Part B [id number] Self [id number] [place]/N[place] Medicare Primary [id number] Self [id number] EXCELLUS BCBS FEDERAL [id number] SP [id number] [employer] U/W Commercial [id number] Self [id number] [place] Primary [id number] Self [id number] [place] Primary Self [employer] U/W Commercial Self BS Fed Plan Commercial Self Blue Shield Federal Health Maintenance Organization (HMO) Self MEDICARE [id number] SP [id number] A MEDICARE [id number] SP [id number] MEDICARE [id number] SP [id number] Ghi/Emblem HLTH (pr) Medigap Part B Self BS Federal Health Maintenance Organization (HMO) S elf [id number] Problems, Conditions, and Diagnoses Code Display Name Description Problem Type Effective Dates Data Source(s) I87.321 [id number] 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 Problem 12/04/2020 12:00:00 AM EST eCW1 ([facility]) L97.822 [id number] Non-pressure chronic ulcer of other part of left lower leg with fat layer exposed Problem 12/04/2020 12:00:00 AM EST eCW1 ([facility]) [id number] Unsteady gait Unsteady gait Problem 10/26/2020 12:00:00 AM EST MEDENT ([facility]) [id number] Tremor Tremor Problem 10/26/2020 12:00:00 AM ES T MEDENT ([facility] ) [id number] Ingrowing nail Ingrowing nail Problem 08/26/2020 12:00: 00 AM EDT MEDENT ([facility] [id number] Plantar fascial fibromatosis Plantar fascial fibromato sis Problem 08/26/2020 12:00:00 AM EDT MED[facility] ([facility] I48.91 Unspecified atrial fibrillation Unspecified atrial fib rillation [id number] 04/06/2020 12:00:00 AM EDT [facility] R52 Pain, unspecified Pain, unspecified [id number] 02/27/2020 12:00:00 AM EDT [facility] M19.90 Unspecified osteoarthritis, unspecified site Unspecified osteoarthritis, unspecified Diagnosis 10/07/2020 03:20:32 PM [facility] R06.02 Shortness of breath Shortness of breath Diagnosis 1 12/08/2019 03:20:32 PM [facility] K21.9 Gastro-esophageal reflux disease without esophagitis Gastro-esophageal reflux disease without Diagnosis 10/07/2020 03:20:32 PM [facility] Z99.2 Dependence on renal dialysis Dependence on renal dialy sis Diagnosis 10/07/2020 03:20:32 PM [facility] N18.6 End stage renal disease End stage renal disease Diagno sis 10/07/2020 03:20:32 PM [facility] 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 Type 2 diabetes mellitus with diabetic c Diagnosis 10/07/2020 03:20:32 PM [facility] E78.5 Hyperlipidemia, unspecified Hyperlipidemia, unspecifie d Diagnosis 10/07/2020 03:20:32 PM [facility] I10 Essential (primary) hypertension Essential (primary) h ypertension Diagnosis 10/07/2020 03:20:32 PM [facility] I48.91 Unspecified atrial fibrillation Unspecified atri al fibrillation Diagnosis 10/07/2020 03:20:32 PM EST [facility] Surgeries/Procedures Procedure Description Date Indications Data Source(s) ELECTROENCEPHALOGRAM W/REC AWAKE&DROWSY 12/11/2020 12: 00:00 AM EST MEDENT ([facility] ) TSTG ANS FUNCJ CARDIOVAGAL INNERVAJ PARASYMP 1 12:00:00 AM EST MEDENT ([facility] ) TSTG ANS FUNCJ CARDIOVAGAL INNERVAJ PARASYMP 1 12:00:00 AM EST MEDENT ([facility] ) TESTING AUTONOMIC NERVOUS SYSTEM FUNCTION 11/18/2020 1 2:00:00 AM EST MEDENT ([facility] ) TESTING AUTONOMIC NERVOUS SYSTEM FUNCTION 11/18/2020 1 2:00:00 AM EST MEDENT ([facility] ) MRI BRAIN BRAIN STEM W/O CONTRAST MATERIAL 11/05/2020 12:00:00 AM EST MEDENT ([facility] ) MRI BRAIN BRAIN STEM W/O CONTRAST MATERIAL 11/05/2020 12:00:00 AM EST MEDENT ([facility] ) MRI SPINAL CANAL LUMBAR W/O CONTRAST MATERIAL 11/05/19 21 12:00:00 AM EST MEDENT ([facility] ) MRI SPINAL CANAL LUMBAR W/O CONTRAST MATERIAL 11/05/19 21 12:00:00 AM EST MEDENT ([facility] ) ECG ROUTINE ECG W/LEAST 12 LDS W/I&R POCT AMB EKG Routine 10/07/2020 6:13 PM EST Atrial fibrillation Benign essential hypertension Short of breath on exertion 10/07/2020 11:13:00 PM EST Short of breath on exertionBenign essential hypertensionAtrial fibrillation [facility] Short of breath on exertion Benign essential hypertension Atrial fibrillation X-Ray Femur Minimum 2 Views 04/17/2020 12:00:00 AM EDT MEDENT ([facility] ) OPTX FEM FX PROX END NCK INT FIXJ/PROSTC RPLCMT 2019 12:00:00 AM EDT MEDENT ([facility] ) Results ID Date Data Source [id number] 11/27/2020 03:30:00 PM EST MEDENT ([facility]) Name Value Range Interpretation Code Description Data Mabel rce(s) Supporting Document(s) C reactive protein [Mass/volume] in Serum or Plasma by High sensitivity method 2.87 mg/dL 0.00-0.30 Above high normal MEDENT ([facility]) ID Date Data Source [id number] 11/27/2020 03:30:00 PM EST MEDENT ([facility]) Name Value Range Interpretation Code Description Data Mabel rce(s) Supporting Document(s) Red Blood Count 2.99 10 4.00-5.40 Below low normal MED ENT ([facility]) White Blood Count 7.0 10 4.0-10.0 Normal (applies to non-numeri c results) MEDENT ([facility]) Hemoglobin 9.2 g/dL 12.0-15.5 Below low normal MED[facility] ( [facility]) Mean Corpuscular Volume 96.7 fl 80.0-96.0 Above high normal MED[facility] ([facility]) Hematocrit 28.9 % 36.0-47.0 Below low normal MED[facility] ( [facility]) Mean Corpuscular HGB Conc 31.8 g/dL 32.0-36.5 Below low normal MED[facility] ([facility]) Mean Corpuscular Hemoglobin 30.8 pg 27.0-33.0 Norm al (applies to non-numeric results) [facility] ([facility]) Red Cell Distribution Width 13.5 % 11.5-14.5 Norm al (applies to non-numeric results) [facility] ([facility]) Platelet Count, Automated 299 10 150-450 Normal (applies to non-numeric results) [facility] ([facility]) Lymph % 12.5 % 24.0-44.0 Below low normal [facility] ( [facility]) Neutrophils % 72.1 % 36.0-66.0 Above high normal MEDE NT ([facility]) Eos % 0.6 % 0.0-3.0 Normal (applies to non-numeric resul ts) [facility] ([facility]) Owen % 13.1 % 0.0-5.0 Above high normal [facility] ([facility]) Nucleated Red Blood Cell % 0.0 % 0-0 Normal (applies to n on-numeric results) [facility] ([facility]) Baso % 1.1 % 0.0-1.0 Above high normal [facility] ([facility]) Immature Granulocyte % 0.6 % 0-3.0 Normal (applies to non-n umeric results) [facility] ([facility]) Lymph # 0.9 10 1.5-5.0 Below low normal MED[facility] ( [facility]) Neutrophils # 5.1 10 1.5-8.5 Normal (applies to non-numeric re sults) [facility] ([facility]) Eos # 0.0 10 0.0-0.5 Normal (applies to non-numeric resul ts) [facility] ([facility]) Baso # 0.1 10 0.0-0.2 Normal (applies to non-numeric resul ts) [facility] ([facility]) Owen # 0.9 10 0.0-0.8 Above high normal [facility] ([facility]) ID Date Data Source [id number] 11/11/2020 03:34:00 PM EST MEDENT ([facility]) Name Value Range Interpretation Code Description Data Mabel rce(s) Supporting Document(s) Gram Stain Laboratory test result Normal (applies to non-n umeric results) MED[facility] ([facility]) FEW GRAM POSITIVE COCCI IN PAIRS Wound Culture Laboratory test result Normal (applies t o non-numeric results) [facility] ([facility]) <content>FULL REPORT IN LAB NOTES (eCW a [...] CSLI standards.</content>
<content></content> ID Date Data Source [id number] 11/11/2020 03:34:00 PM EST MEDENT ([facility]) Name Value Range Interpretation Code Description Data Mabel rce(s) Supporting Document(s) Bacteria identified in Wound by Culture Laboratory test result Normal (applies to non-numeric results) [facility] ([facility]) FEW GRAM POSITIVE COCCI IN PAIRS ID Date Data Source [id number] 11/06/2020 01:59:00 PM EST MED[facility] ([facility]) Name Value Range Interpretation Code Description Data Mabel rce(s) Supporting Document(s) Laboratory test finding (navigational concept) 62.5 s 1 2.1-14.4 Above high normal MED[facility] ([facility]) Laboratory test finding (navigational concept) 5.7 Above upper panic limits [facility] ([facility]) ID Date Data Source [id number] 11/06/2020 04:13:00 AM EST MEDENT ([facility]) Name Value Range Interpretation Code Description Data Mabel rce(s) Supporting Document(s) Blood Urea Nitrogen 37 mg/dL 7-18 Above high normal MED[facility] ([facility]) Creatinine For GFR 5.57 mg/dL 0.55-1.30 Above high normal [facility] ([facility]) Glucose, Fasting 84 mg/dL 70-100 Normal (applies to non-numeric results) [facility] ([facility]) Glomerular Filtration Rate 8.0 Below low normal [facility] ([facility]) <content>Units are mL/min/1.73 m2</content>
<content></content>
<content>Chronic Kidney Disease Staging per NKF:</content>
<content></content>
<content>Stage I & II GFR >=60 Normal to Mildly Decreased</content>
<content>Stage III GFR 30- 59 Moderately Decreased</content>
<content>Stage IV GFR 15-29 Severely Decreased</content>
<content>Stage V GFR <15 Very Little GFR Left</content>
<content>ESRD GFR <15 on CERTIFIED CODING SPECIALIST</content>
<content></content> Sodium Level 139 meq/L 136-145 Normal (applies to non-numeric res ults) MEDENT ([facility]) Chloride Level 102 meq/L 98-107 Normal (applies to non-numeric r esults) [facility] ([facility]) Potassium Serum 4.0 meq/L 3.5-5.1 Normal (applies to non-numeric results) [facility] ([facility]) Carbon Dioxide Level 28 meq/L 21-32 Normal (applies to non-num jabari results) [facility] ([facility]) Anion Gap 9 meq/L 8-16 Normal (applies to non-numeric resul ts) [facility] ([facility]) Calcium Level 9.4 mg/dL 8.8-10.2 Normal (applies to non-numeric re sults) [facility] ID Date Data Source [id number] 11/06/2020 04:13:00 AM EST [facility] ([facility]) Name Value Range Interpretation Code Description Data Mabel rce(s) Supporting Document(s) Ast/Sgot 16 U/L 7-37 Normal (applies to non-numeric resul ts) [facility] ([facility]) Alt/SGPT 15 U/L 12-78 Normal (applies to non-numeric resul ts) [facility] ([facility]) Bilirubin,Total 0.4 mg/dL 0.2-1.0 Normal (applies to non-numeric results) [facility] ([facility]) Alkaline Phosphatase 58 U/L 45-117 Normal (applies to non-num jabari results) [facility] ([facility]) Total Protein 6.5 GM/DL 6.4-8.2 Normal (applies to non-numeric re sults) [facility] ([facility]) Albumin/Globulin Ratio 1.0 1.2-2.2 Below low normal [facility] Albumin 3.2 GM/DL 3.2-5.2 Normal (applies to non-numeric resul ts) [facility] ([facility]) Bilirubin,Direct 0.1 mg/dL 0.0-0.2 Normal (applies to non-numeric results) [facility] ([facility]) ID Date Data Source [id number] 11/06/2020 04:13:00 AM EST MEDENT ([facility]) Name Value Range Interpretation Code Description Data Mabel rce(s) Supporting Document(s) Red Blood Count 3.22 10 4.00-5.40 Below low normal [facility] ([facility]) White Blood Count 12.1 10 4.0-10.0 Above high normal [facility] ([facility]) Hemoglobin 9.9 g/dL 12.0-15.5 Below low normal [facility] Mean Corpuscular Hemoglobin 30.7 pg 27.0-33.0 Norm al (applies to non-numeric results) [facility] ([facility]) Mean Corpuscular Volume 97.8 fl 80.0-96.0 Above high normal [facility] ([facility]) Hematocrit 31.5 % 36.0-47.0 Below low normal [facility] Platelet Count, Automated 259 10 150-450 Normal (applies to non-numeric results) [facility] ([facility]) Mean Corpuscular HGB Conc 31.4 g/dL 32.0-36.5 Below low normal [facility] ([facility]) Red Cell Distribution Width 13.1 % 11.5-14.5 Norm al (applies to non-numeric results) [facility] ([facility]) Nucleated Red Blood Cell % 0.0 % 0-0 Normal (applies to n on-numeric results) [facility] ([facility]) ID Date Data Source [id number] 11/06/2020 04:12:00 AM EST MEDENT ([facility]) Name Value Range Interpretation Code Description Data Mabel rce(s) Supporting Document(s) Prothrombin Time 54.1 s 12.5-14.3 Above high normal M EDENT ([facility]) Inr 5.88 Above upper panic limits MEDENT ([facility]) THERAPUTIC HUMAN INR VALUES INDICATIONS NORMAL RANGES PROPHYLAXIS/TREATMENT OF: VENOUS THROMBOSIS 2.0-3.0 PULMONARY EMBOLISM 2.0-3.0 PREVENTION OF SYSTEMIC EMBOLISM FROM: TISSUE HEART VALVES 2.0-3.0 ACUTE MYOCARDIAL INFARCTION 2.0-3.0 VALVULAR HEART DISEASE 2.0-3.0 ATRIAL FIBRILLATION 2.0-3.0 MECHANICAL VALVES(HIGH RISK) 2.5-3.5 RECURRENT MYOCARDIAL INFARCTION 2.5-3.5 ID Date Data Source [id number] 08/10/2020 06:00:00 AM EDT MED[facility] ([facility]) Name Value Range Interpretation Code Description Data Mabel rce(s) Supporting Document(s) Glucose, Fasting 103 mg/dL 70-100 Above high normal M EDENT ([facility]) Creatinine For GFR 5.99 mg/dL 0.55-1.30 Above high normal [facility] ([facility]) Glomerular Filtration Rate 7.4 Below low normal [facility] ([facility]) <content>Units are mL/min/1.73 m2</content>
<content></content>
<content>Chronic Kidney Disease Staging per NKF:</content>
<content></content>
<content>Stage I & II GFR >=60 Normal to Mildly Decreased</content>
<content>Stage III GFR 30- 59 Moderately Decreased</content>
<content>Stage IV GFR 15-29 Severely Decreased</content>
<content>Stage V GFR <15 Very Little GFR Left</content>
<content>ESRD GFR <15 on CERTIFIED CODING SPECIALIST</content>
<content></content> Blood Urea Nitrogen 38 mg/dL 7-18 Above high normal [facility] Sodium Level 140 meq/L 136-145 Normal (applies to non-numeric res ults) [facility] ([facility]) Chloride Level 108 meq/L 98-107 Above high normal [facility] ([facility]) Potassium Serum 4.1 meq/L 3.5-5.1 Normal (applies to non-numeric results) [facility] ([facility]) Anion Gap 11 meq/L 8-16 Normal (applies to non-numeric resul ts) [facility] ([facility]) Calcium Level 8.6 mg/dL 8.8-10.2 Below low normal MEDEN T ([facility]) Carbon Dioxide Level 21 meq/L 21-32 Normal (applies to non-num jabari results) [facility] ([facility]) ID Date Data Source [id number] 08/10/2020 06:00:00 AM EDT [facility] ([facility]) Name Value Range Interpretation Code Description Data Mabel rce(s) Supporting Document(s) Prothrombin Time 16.5 s 12.5-14.3 Above high normal [facility] ([facility]) Inr 1.30 Normal (applies to non-numeric resul ts) [facility] ([facility]) THERAPUTIC HUMAN INR VALUES INDICATIONS NORMAL RANGES PROPHYLAXIS/TREATMENT OF: VENOUS THROMBOSIS 2.0-3.0 PULMONARY EMBOLISM 2.0-3.0 PREVENTION OF SYSTEMIC EMBOLISM FROM: TISSUE HEART VALVES 2.0-3.0 ACUTE MYOCARDIAL INFARCTION 2.0-3.0 VALVULAR HEART DISEASE 2.0-3.0 ATRIAL FIBRILLATION 2.0-3.0 MECHANICAL VALVES(HIGH RISK) 2.5-3.5 RECURRENT MYOCARDIAL INFARCTION 2.5-3.5 ID Date Data Source [id number] 08/10/2020 06:00:00 AM EDT [facility] ([facility]) Name Value Range Interpretation Code Description Data Mabel rce(s) Supporting Document(s) Hemoglobin 9.8 g/dL 12.0-15.5 Below low normal [facility] ( [facility]) Red Blood Count 3.08 10 4.00-5.40 Below low normal [facility] ([facility]) White Blood Count 8.5 10 4.0-10.0 Normal (applies to non-numeri c results) [facility] ([facility]) Hematocrit 30.7 % 36.0-47.0 Below low normal [facility] Mean Corpuscular Volume 99.7 fl 80.0-96.0 Above high normal [facility] Mean Corpuscular Hemoglobin 31.8 pg 27.0-33.0 Norm al (applies to non-numeric results) [facility] ([facility]) Red Cell Distribution Width 13.8 % 11.5-14.5 Norm al (applies to non-numeric results) [facility] ([facility]) Mean Corpuscular HGB Conc 31.9 g/dL 32.0-36.5 Below low normal [facility] ([facility]) Neutrophils % 78.5 % 36.0-66.0 Above high normal MED[facility] NT ([facility]) Platelet Count, Automated 278 10 150-450 Normal (applies to non-numeric results) [facility] ([facility]) Lymph % 13.1 % 24.0-44.0 Below low normal [facility] ( [facility]) Eos % 0.8 % 0.0-3.0 Normal (applies to non-numeric resul ts) [facility] ([facility]) Baso % 0.8 % 0.0-1.0 Normal (applies to non-numeric resul ts) [facility] ([facility]) Owen % 6.4 % 0.0-5.0 Above high normal [facility] ([facility]) Nucleated Red Blood Cell % 0.0 % 0-0 Normal (applies to n on-numeric results) [facility] ([facility]) Lymph # 1.1 10 1.5-5.0 Below low normal [facility] ( [facility]) Neutrophils # 6.7 10 1.5-8.5 Normal (applies to non-numeric re sults) [facility] ([facility]) Immature Granulocyte % 0.4 % 0-3.0 Normal (applies to non-n umeric results) [facility] ([facility]) Owen # 0.6 10 0.0-0.8 Normal (applies to non-numeric resul ts) [facility] ([facility]) Eos # 0.1 10 0.0-0.5 Normal (applies to non-numeric resul ts) [facility] ([facility]) Baso # 0.1 10 0.0-0.2 Normal (applies to non-numeric resul ts) [facility] ([facility]) Procedure Social History Code Duration Value Status Description Data Source(s ) Smoking 12/10/2020 12:00:00 AM EST Former Smoker completed Former Smoker eCW1 ([facility]) Smoking 12/10/2020 12:00:00 AM EST Former Smoker completed Former Smoker eCW1 ([facility]) Smoking 12/04/2020 12:00:00 AM EST Former Smoker completed Former Smoker eCW1 ([facility]) Alcohol intake 10/07/2020 12:00:00 AM EST No completed [facility] Smoking 10/07/2020 12:00:00 AM EST Never smoker completed Never s moker [facility] Smoking 09/30/2020 12:00:00 AM EST Quit completed Quit [facility] ([facility]) Vital Signs ID Date Data Source UNK Name Value Range Interpretation Code Description Data Source(s) [place] body weight 125 [lb_av] 125 [lb_av] MEDEN T ([facility]) Oxygen saturation in Arterial blood by Pulse oximetry 99 % 99 % [facility] ([facility]) Body temperature 99.0 [degF] 99.0 [degF] [facility] ([facility]) Respiratory rate 18 /min 18 /min [facility] ( [facility]) Heart rate 64 /min 64 /min [facility] ([facility]) Body height 65.5 [in_i] 65.5 [in_i] MED[facility] ([facility]) 5'5.50" Diastolic blood pressure 68 mm[Hg] 68 mm[Hg] [facility] ([facility]) Systolic blood pressure 118 mm[Hg] 118 mm[Hg] M [facility]ENT ([facility]) [place] body weight 125 [lb_av] 125 [lb_av] MEDEN T ([facility]) Oxygen saturation in Arterial blood by Pulse oximetry 99 % 99 % [facility] ([facility]) Body temperature 98.7 [degF] 98.7 [degF] [facility] ([facility]) Respiratory rate 18 /min 18 /min [facility] ( [facility]) Heart rate 75 /min 75 /min [facility] ([facility] [facility]) Body height 65.5 [in_i] 65.5 [in_i] MEDENT ([facility]) 5'5.50" Diastolic blood pressure 78 mm[Hg] 78 mm[Hg] [facility] ([facility]) Systolic blood pressure 122 mm[Hg] 122 mm[Hg] M EDENT ([facility]) [place] body weight 125 [lb_av] 125 [lb_av] MEDEN T ([facility]) Oxygen saturation in Arterial blood by Pulse oximetry 97 % 97 % [facility] ([facility]) Body temperature 97.4 [degF] 97.4 [degF] [facility] ([facility]) Respiratory rate 20 /min 20 /min [facility] ( [facility]) Heart rate 78 /min 78 /min [facility] ([facility]) Body mass index (BMI) [Ratio] 24.3 kg/m2 24.3 k g/m2 [facility] ([facility]) Body weight 148.00 [lb_av] 148.00 [lb_av] MEDEN T ([facility]) Body height 65.5 [in_i] 65.5 [in_i] [facility] ([facility]) 5'5.50" Diastolic blood pressure 74 mm[Hg] 74 mm[Hg] [facility] ([facility]) Systolic blood pressure 154 mm[Hg] 154 mm[facility]Hg] [facility] Diastolic blood pressure 68 mm[Hg] 68 mm[Hg] [facility] Systolic blood pressure 140 mm[Hg] 140 mm[Hg] [facility] Oxygen saturation in Arterial blood by Pulse oximetry 98 % 98 % [facility] Body mass index (BMI) [Ratio] 22.80 kg/m2 22.80 kg/m2 [facility] Body weight 62.143 kg 62.143 kg [facility] Body height 165.1 cm 165.1 cm [facility] Respiratory rate 18 /min 18 /min [facility] Heart rate 72 /min 72 /min [facility] [place] body weight 125 [lb_av] 125 [lb_av] MEDEN T ([facility]) Oxygen saturation in Arterial blood by Pulse oximetry 99 % 99 % [facility] Body temperature 97.9 [degF] 97.9 [degF] [facility] ([facility]) Respiratory rate 18 /min 18 /min [facility] ( [facility]) Heart rate 86 /min 86 /min [facility] ([facility]) Body mass index (BMI) [Ratio] 25.1 kg/m2 25.1 k g/m2 [facility] ([facility]) Body weight 153.00 [lb_av] 153.00 [lb_av] [facility] T ([facility]) Body height 65.5 [in_i] 65.5 [in_i] [facility] ([facility]) 5'5.50" Diastolic blood pressure 84 mm[Hg] 84 mm[Hg] [facility] ([facility]) Systolic blood pressure 140 mm[Hg] 140 mm[Hg] [facility] ([facility]) [place] body weight 125 [lb_av] 125 [lb_av] MED[facility] T ([facility]) Oxygen saturation in Arterial blood by Pulse oximetry 98 % 98 % [facility] ([facility]) Body temperature 98.3 [degF] 98.3 [degF] [facility]) Respiratory rate 20 /min 20 /min [facility] ( [facility]) Heart rate 69 /min 69 /min [facility] ([facility]) Body mass index (BMI) [Ratio] 23.9 kg/m2 23.9 k g/m2 [facility] ([facility]) Body weight 146.00 [lb_av] 146.00 [lb_av] [facility] T ([facility]) Body height 65.5 [in_i] 65.5 [in_i] [facility] ([facility]) 5'5.50" Diastolic blood pressure 74 mm[Hg] 74 mm[Hg] [facility] ([facility]) Systolic blood pressure 144 mm[Hg] 144 mm[Hg] [facility] ([facility]) Body mass index (BMI) [Ratio] 23.4 kg/m2 23.4 k g/m2 [facility] ([facility] Heart rate 60 /min 60 /min [facility] ([facility] Diastolic blood pressure 60 mm[Hg] 60 mm[Hg] [facility] ([facility] Systolic blood pressure 130 mm[Hg] 130 mm[Hg] ED[facility] ([facility] Body weight 145.00 [lb_av] 145.00 [lb_av] MEDEN T ([facility] Body height 66 [in_i] 66 [in_i] [facility] ([facility] 5'6" [place] body weight 125 [lb_av] 125 [lb_av] MED[facility] T ([facility]) Oxygen saturation in Arterial blood by [facility]ulse oximetry 97 % 97 % [facility] Body temperature 96.6 [degF] 96.6 [degF] [facility] ([facility]) Respiratory rate 20 /min 20 /min [facility] Heart rate 63 /min 63 /min [facility] ([facility]) Body mass index (BMI) [Ratio] 23.3 kg/m2 23.3 k g/m2 [facility] ([facility]) Body weight 142.00 [lb_av] 142.00 [lb_av] [facility] T ([facility]) Body height 65.5 [in_i] 65.5 [in_i] [facility] ([facility]) 5'5.50" Diastolic blood pressure 82 mm[Hg] 82 mm[Hg] [facility] ([facility]) 128/palp recheck Systolic blood pressure 130 mm[Hg] 130 mm[Hg] EDENT ([facility]) 128/palp recheck Body mass index (BMI) [Ratio] 20.4 kg/m2 20.4 k g/m2 [facility] ([facility] ) Body weight 130.00 [lb_av] 130.00 [lb_av] MEDEN T ([facility]) Body height 67 [in_i] 67 [in_i] [facility] ([facility]) 5'7" Body temperature 97.8 [degF] 97.8 [degF] [facility] ([facility]) [place] body weight 125 [lb_av] 125 [lb_av] MED[facility] T ([facility]) Oxygen saturation in Arterial blood by Pulse oximetry 97 % 97 % [facility] ([facility]) Body temperature 97.2 [degF] 97.2 [degF] [facility]) Respiratory rate 18 /min 18 /min [facility] ( [facility]) Heart rate 63 /min 63 /min [facility] ([facility]) Body mass index (BMI) [Ratio] 21.1 kg/m2 21.1 k g/m2 [facility] ([facility]) Body weight 129.00 [lb_av] 129.00 [lb_av] [facility] T ([facility]) Body height 65.5 [in_i] 65.5 [in_i] [facility] 5'5.50" Diastolic blood pressure 64 mm[Hg] 64 mm[Hg] [facility] ([facility]) 138/60 recheck Systolic blood pressure 130 mm[Hg] 130 mm[facility]Hg] [facility] 138/60 recheck Patient Treatment Plan of Care Planned Activity Planned Date Details Description Data Source (s) apixaban 5 MG Oral Tablet 10/07/2020 12:00:00 AM EST [facility] Propafenone Hydrochloride 300 MG Oral Tablet 06/05/2020 12:00:00 AM EDT [facility] Megestrol Acetate 40 MG Oral Tablet 06/02/2020 12:00:00 AM EDT [facility] Warfarin Sodium 3 MG Oral Tablet 04/27/2020 12:00:00 AM EDT [facility] 1 ML heparin sodium, porcine 1000 UNT/ML Injection 04/13/2020 12 :00:00 AM EDT [facility] carvedilol 12.5 MG Oral Tablet 12/20/2019 12:00:00 AM EST [facility] Ondansetron 4 MG Oral Tablet 07/17/2019 12:00:00 AM EDT [facility] prednisolone acetate 10 MG/ML Ophthalmic Suspension 05/15/20 12:00:00 AM EDT [facility] sitagliptin 25 MG Oral Tablet 08/03/2018 12:00:00 AM EDT [facility] POLYETHYLENE GLYCOL 3350 142 MG/ML Oral Solution [facility] Losartan Potassium 50 MG Oral Tablet [facility] fluticasone (VERAMYST) 27.5 MCG/SPRAY nasal spray [facility] ferrous sulfate 325 MG Oral Tablet [facility] Ergocalciferol 25194 UNT Oral Capsule [facility] cetirizine hydrochloride 10 MG Oral Tablet [facility] Probiotic Product (PROBIOTIC DAILY PO) [facility] Cholecalciferol 5000 UNT Oral Capsule [facility] Darbepoetin Raul-Albumin (ARANESP IJ) [facility] Hydralazine Hydrochloride 25 MG Oral Tablet [facility] Calcitriol 0.77477 MG Oral Capsule [facility] Omeprazole 40 MG Delayed Release Oral Capsule [facility] atorvastatin 10 MG Oral Tablet [facility]
[2020-12-22] MEDS ORDERED: CITA20TA7 PO (17:24)
[2020-12-22] MEDS ORDERED: ONDA4TAB6 PO (17:24)
[2020-12-22] MEDS ORDERED: PROP150T20 PO (17:24)
[2020-12-22] MEDS ORDERED: RALO1TAB PO (17:24)
--- NOTE | 2020-12-22 18:06 | REP ---
INDICATION: weakness. COMPARISON: Comparison chest x-ray March 16, 2020. TECHNIQUE: Two views.. FINDINGS: The lungs are well inflated and free of infiltrate. The pleural angles are sharp. The heart size is normal. Pulmonary vasculature is not increased. No significant bony abnormality is seen. IMPRESSION: No active disease.. <Electronically signed by Stan Brown > 12/22/20 [id number]
--- NOTE | 2020-12-22 18:08 | REPVR ---
PROCEDURE INFORMATION: Exam: CT Head Without Contrast Exam date and time: 12/22/2020 5:51 PM Age: 70 years old Clinical indication: Weakness, extremity TECHNIQUE: Imaging protocol: Computed tomography of the head without contrast. Radiation optimization: All CT scans at this facility use at least one of these dose optimization techniques: automated exposure control; mA and/or kV adjustment per patient size (includes targeted exams where dose is matched to clinical indication); or iterative reconstruction. COMPARISON: CT Head without contrast 08/10/2020 5:11 AM FINDINGS: Brain: There is no acute intracranial hemorrhage, cerebral edema, or midline shift. Chronic microvascular ischemic changes are seen in the periventricular white matter. Age-related cerebral and cerebellar volume loss is present. Cerebral ventricles: Mild ex vacuo dilation of the lateral and third ventricles is noted. Bones/joints: No acute fracture. Paranasal sinuses: There is no acute sinusitis. Mastoid air cells: The mastoid air cells are clear. Orbital cavity: The included orbital structures are unremarkable. Soft tissues: Unremarkable. IMPRESSION: 1. No acute intracranial abnormality. 2. Atrophy and chronic deep white matter ischemic changes. Electronically signed by: Tunde Rg On 12/22/2020 18:09:08 PM
[2020-12-22 18:54] LABS: BASO # 0.1 10^3/uL (0.0-0.2); BASO % 0.8 % (0.0-1.0); EOS % 0.5 % (0.0-3.0); HEMATOCRIT 26.7 % (36.0-47.0); HEMOGLOBIN 8.3 g/dl (12.0-15.5); LYMPH # 1.1 10^3/uL (1.5-5.0); LYMPH % 12.7 % (24.0-44.0); MEAN CORPUSCULAR HEMOGLOBIN 30.4 pg (27.0-33.0); MEAN CORPUSCULAR HGB CONC 31.1 g/dl (32.0-36.5); MEAN CORPUSCULAR VOLUME 97.8 fl (80.0-96.0); MONO # 0.9 10^3/uL (0.0-0.8); NEUTROPHILS # 6.6 10^3/uL (1.5-8.5); NEUTROPHILS % 75.7 % (36.0-66.0); PLATELET COUNT, AUTOMATED 328 10^3/uL (150-450); RED BLOOD COUNT 2.73 10^6/uL (4.00-5.40); WHITE BLOOD COUNT 8.8 10^3/uL (4.0-10.0)
[2020-12-22 19:15] LABS: ERYTHROCYTE SEDIMENTATION RATE 65 mm/hr (0-30)
[2020-12-22 19:19] LABS: ALBUMIN 3.3 GM/DL (3.2-5.2); ALT/SGPT 14 U/L (12-78); BILIRUBIN,DIRECT 0.1 MG/DL (0.0-0.2); BILIRUBIN,TOTAL 0.3 MG/DL (0.2-1.0); C REACTIVE PROTEIN QUANTITATIV 1.24 MG/DL (0.00-0.30); CK-MB VALUE MASS < 1.0 NG/ML (<3.6); CPK CREATINE PHOSPHOKINASE 33 U/L (26-192); LIPASE 88 U/L (73-393); MAGNESIUM LEVEL 2.1 MG/DL (1.8-2.4); MB/CK RELATIVE INDEX 3.03 (< OR =4); NT-PRO BNP 2853 PG/ML (<125); TOTAL PROTEIN 6.4 GM/DL (6.4-8.2); TROPONIN I < 0.02 NG/ML (< 0.10)
--- NOTE | 2020-12-22 21:24 | HPEPDOC ---
[facility] Medical History & Physical Date of Admission Dec 22, 2020 Date of Service: Dec 22, 2020 Primary Care Physician: ERIC PALACIOS DO Attending Physician: MARLEN SAMUEL MD History and Physical TIME OF SERVICE: 906PM CHIEF COMPLAINT: weakness HISTORY OF PRESENT ILLNESS: This 70 yr old wheelchair bound F has been feeling weak for several weeks and as a result has had multiple falls even out of her wheel chair. She hit her head about 2 weeks ago after falling but denies hitting her head recently. She also denies having chest pain, dizziness, blurry vision, ringing in the ears, sensation of the room moving beneath her or having other warning symptoms before the fall. She also denies loosing consciousness after the falls. She thinks that she has been wheel chair bound for more than 1 year, attended PT about 1 year ago and was last able to stand or walk without assistance about 6 weeks ago. Based on d/c summary from April2020 after admission to the rehab unit after having a right hip hemiarthroplasty the patient had modified independence for functional transfers and ambulation. Per d/w AFSHIN Obrien the patients daughter was concerned because her mother lives alone and added that she has been forgetful. 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 FAMILY HISTORY: CAD, DM, HTN, Pancreatic Cancer ALLERGIES: Please see below. HOME MEDICATIONS: Please see below. PHYSICAL EXAMINATION: Vital Signs Date Time Temp Pulse Resp B/P (MAP) Pulse Ox O2 Delivery O2 Flow Rate FiO2 12/22/20 16:49 97.8 56 16 138/59 (85) 94 Room Air GENERAL APPEARANCE: slim build / NAD HEENT: EOMI / MMM&P CARDIOVASCULAR: RRR/ NMRG/ no BLE edema LUNGS: CTAB on RA ABDOMEN: flat soft & NT on palpation MUSCULOSKELETAL: NCAT / MEG x 4 INTEGUMENT: has generalized pallor NEUROLOGICAL: CN 2-12 intact / speech not dysarthric / strength 5/5 at upper and lower extremities PSYCHIATRIC: A&O /able to understand and follow simple commands LABORATORY DATA: 12/22/20 17:35 Immature Granulocyte % (Auto) 0.3, Neutrophils (%) (Auto) 75.7H, Lymphocytes (%) (Auto) 12.7L, Monocytes (%) (Auto) 10.0H, Eosinophils (%) (Auto) 0.5, Basophils (%) (Auto) 0.8, Neutrophils # (Auto) 6.6, Lymphocytes # (Auto) 1.1L, Monocytes # (Auto) 0.9H, Eosinophils # (Auto) 0.0, Basophils # (Auto) 0.1, Nucleated Red Blood Cells % (auto) 0.0, Erythrocyte Sedimentation Rate 65H, Magnesium Level 2.1, Total Bilirubin 0.3, Direct Bilirubin 0.1, Aspartate Amino Transf (AST/SGOT) 6L, Alanine Aminotransferase (ALT/SGPT) 14, Alkaline Phosphatase 70, Total Creatine Kinase 33, Creatine Kinase MB < 1.0, Creatine Kinase MB Relative Index 3.03, Troponin I < 0.02, C-Reactive Protein, Quantitative 1.24H, YP-Hiy-C-Type Natriuretic Peptide 2853H, Total Protein 6.4, Albumin 3.3, Albumin/Globulin Ratio 1.1L, Lipase 88 12/22/20 18:46: POC Glucose (Misc Panel) 104, POC Sodium (Misc Panel) 139, POC Potassium (Misc Panel) 3.3L, POC Chloride (Misc Panel) 100, POC Total CO2 (Misc Panel) 30.0H, POC Blood Urea Nitrogen (Misc Panel 19, POC Ionized Calcium (Misc Panel) 5.4H, POC Creatinine (Misc Panel) 4.6H, POC Hematocrit (Misc Panel) 27.0L 12/22/20 20:12: Urine Color YELLOW, Urine Appearance HAZY, Urine pH 9.0, Urine Specific [place] 1.005, Urine Protein 2+H, Urine Glucose (UA) NEGATIVE, Urine Ketones NEGATIVE, Urine Blood NEGATIVE, Urine Nitrite NEGATIVE, Urine Bilirubin NEGATIVE, Urine Urobilinogen 0.2, Urine Leukocyte Esterase NEGATIVE, Urine WBC (Auto) 1, Urine RBC (Auto) 1, Urine Hyaline Casts (Auto) 0, Urine Bacteria (Auto) 1+H, Urine Squamous Epithelial Cells 0, Urine Sperm (Auto) IMAGING: CT head IMPRESSION: 1. No acute intracranial abnormality. 2. Atrophy and chronic deep white matter ischemic changes. Chest xray IMPRESSION: No active disease. MICROBIOLOGY: Respiratory Virus Panel (PCR) ([facility]), NEG ASSESSMENT: is a 70yr old w a hx of ESRD, A fib, HTN, and multiple bone fx who presented w c/o weakness and falls; she will be admitted for evaluation of the latter pending possible rehab vs SNF placement. PLAN: 1 Weakness and Falls Likely due to deconditioning/ debility, but will r/o orthostatic hypotension CT of the head was unrevealing Plan: Admit to medical floor/ check orthostats x 1/fall precautions/physical therapy consult to determine if she needs inpatient rehabilitation versus placement in an assisted living facility / hold off ordering an MRI of the brain because her neuro exam was not focal 2 Microcytic Anemia Likely MARIE and or Anemia in the setting of CKD Plan: f/u iron panel with soluble transferrin receptor (sTfR) which is a more sensitive indicator for iron deficiency & stool occult 3 RLE Wound Plan: will ask the day time team to consult 4 Essential Tremor ? She reports having tremors of all her limbs that is worse with activity Plan: f/u w PCP 5 Longstanding persistent Afib Plan: flecanide & warfarin / f/u INR 6 ESRD Plan: will ask the day time team to consult Nephro for dialysis 7 Essential HTN Plan: Coreg DVT n/a she is on Warfarin Dispo: in pt rehab vs SNF vs home w PT after at least 2 midnights stay Home Medications Scheduled Bupropion HCl (Bupropion Xl) 300 Mg Tab.er.24h, 300 MG PO DAILY Carvedilol (Carvedilol) 12.5 Mg Tablet, 12.5 MG PO BID Citalopram Hydrobromide (Citalopram HBr) 20 Mg Tablet, 20 MG PO DAILY Docusate Sodium (Docusate Sodium) 100 Mg Capsule, 100 MG PO DAILY Megestrol Acetate (Megestrol Acetate) 40 Mg Tablet, 40 MG PO Q6H Mupirocin (Mupirocin) 2 % Oint...g., 1 DOSE EXT BID APPLIES TO LEFT LOWER LEG Pantoprazole Sodium (Pantoprazole Sodium) 40 Mg Tablet.dr, 40 MG PO DAILY Propafenone HCl (Propafenone HCl) 300 Mg Tablet, 300 MG PO BID Raloxifene HCl (Raloxifene HCl) 60 Mg Tablet, 60 MG PO DAILY Warfarin Sodium (Warfarin Sodium) 5 Mg Tablet, 5 MG PO QHS Scheduled PRN Ondansetron HCl (Ondansetron HCl) 4 Mg Tablet, 4 MG PO Q4H PRN for NAUSEA OR VOMITING Allergies Coded Allergies: Sulfa (Sulfonamide Antibiotics) (Verified Adverse Reaction, Intermediate, upset stomach, 06/27/19) A-FIB/CHADSVASC A-FIB History Current/History of A-Fib/PAF?: Yes Current PO Anticoag Therapy: Yes MARLEN SAMUEL MD Dec 22, 2020 21:24
[2020-12-22] MEDS ORDERED: MAALOX 30 ML SUSP *UDC PO PRN (21:30)
[2020-12-22] MEDS ORDERED: ACETAMINOPHEN TAB 650MG DOSE (2X325MG) PO PRN (21:30)
[2020-12-22] MEDS ORDERED: MOM 30ML SUSPENSION UDC PO PRN (21:30)
--- OUTSIDE RECORDS SUMMARY | 2020-12-22 22:17 | CCD ---
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 Role Phone Kocan, J Antoinette AGILE SCRUM MASTER Unavailable Unavailable Kocan, J Antoinette AGILE SCRUM MASTER Unavailable Unavailable Kocan, J Antoinette AGILE SCRUM MASTER Unavailable Unavailable Kocan, J Antoinette AGILE SCRUM MASTER Unavailable Unavailable Kocan, J Antoinette AGILE SCRUM MASTER Unavailable Unavailable Kocan, J Antoinette AGILE SCRUM MASTER Unavailable Unavailable Kocan, J Antoinette AGILE SCRUM MASTER Unavailable Unavailable Kocan, J Antoinette AGILE SCRUM MASTER Unavailable Unavailable Kocan, J Antoinette AGILE SCRUM MASTER Unavailable Unavailable Kocan, J Antoinette AGILE SCRUM MASTER Unavailable Unavailable Kocan, J Antoinette AGILE SCRUM MASTER Unavailable Unavailable Kocan, J Antoinette AGILE SCRUM MASTER Unavailable Unavailable Kocan, J Antoinette AGILE SCRUM MASTER Unavailable Unavailable Anneliese LESTER DPM Unavailable Unavailable [...] Unavailable KAISER, ANAYA MD Unavailable Unavailable KAISER, ANAAY MD Unavailable Unavailable KAISER, ANAYA MD Unavailable [...] Unavailable Unavailable RAMBO, AARON MD Unavailable Unavailable ARMBO, AARON MD Unavailable Unavailable RAMBO, AARON MD [...] is protected by Article 27-F of the [facility] Public Health law. If you continue you may have access to information: Regarding HIV / AIDS; Provided by facilities licensed or operated by the [facility] Office of Mental Health; or Provided by the [facility] Office for People With Developmental Disabilities. If such information is present, then the following [facility] mandated warning applies: This information has been [...] law may result in a fine or half-way sentence or both. A general authorization for the release of medical or other information is NOT sufficient authorization for further disc losure. Family History Family Member Name Family Member Gender Family Member Status Date o f Status Description Data Source(s) Unknown Female Problem MEDENT ([facility]) Unknown Female Problem MEDENT ([facility] ) Unknown Male Problem MEDENT ([facility]) Unknown Female Problem MEDENT ([facility]) Unknown Female Problem MEDENT ([facility]) Unknown Female Problem MEDENT ([facility]) Unknown Male Problem [facility] ([facility] Encounters Encounter Providers Location Date Indications Data Source(s ) [place] [address] [facility] [address] 12/09/2020 12:00:00 AM EST eCW1 ([facility]) [place] [address] [facility] [address] 12/09/2020 12:00:00 AM EST eCW1 ([facility]) [place] [address] [facility] [address] 12/09/2020 12:00:00 AM EST eCW1 ([facility]) Outpatient Attender: ERIC PALACIOS [facility] 11/27/2020 12:20:00 PM EST [facility] ([facility]) Outpatient Attender: ERIC PALACIOS [facility] 11/18/2020 01:40:00 PM EST MED[facility] ([facility]) Outpatient Attender: ERIC PALACIOS [facility] 11/11/2020 02:00:00 PM EST MED[facility] ([facility]) Outpatient P.[email or web address].MATTI 11/09/2020 12:00:[address] [facility] Outpatient [email or web address]-[email or web address].MATTI 11/06/2020 12:00:[address] [facility] Outpatient Attender: ANAYA SAAB MD Main office - [facility] 10/26/2020 01:30:00 PM EST MEDENT ([facility]) Outpatient [email or web address].MATTI 10/21/2020 12:00:[address] [facility] Outpatient Attender: Antoinette Torres AGILE SCRUM MASTER WALLY.MATTI-[email or web address].MATTI 2019 12:00:00 AM EST - 10/07/2020 04:30:16 PM EST [facility] Outpatient SJP.[email or web address].MATTI 10/07/2020 12:00:[address] [facility] Outpatient SJP.MATTI-[email or web address].MATTI 10/05/2020 11:18:[address] [facility] Outpatient Attender: ERIC PALACIOS DO [facility] 09/30/2020 10:20:00 AM EST MEDENT ([facility]) Outpatient SJP.[email or web address].MATTI 09/23/2020 12:00:[address] [facility] Outpatient SJP.MATTI-[email or web address].MATTI 09/16/2020 12:00:[address] [facility] Outpatient SJP.MATTI-[email or web address].MATTI 09/09/2020 12:00:[address] [facility] Outpatient SJP.MATTI-[email or web address].MATTI 09/02/2020 12:00:[address] [facility] Outpatient SJP.MATTI-SJP.MATTI 08/26/2020 10:53 :12 AM EDT - 08/26/2020 11:10:[address] [facility] SJP.MATTI-[email or web address].MATTI 08/26/2020 10:52 :49 AM EDT - 08/26/2020 11:01:[address] [facility] Outpatient Attender: Pradip PEPE [facility] 08/20/2020 10:00:00 AM EDT MEDENT ([facility]) Outpatient Attender: AGNIESZKA RICKS MD SJP.MATTI-[email or web address].MATTI 0 12:00:00 AM EDT - 08/19/2020 12:08:56 PM EDT [facility] Outpatient Attender: REAGAN LETSER [facility] 07/31 10:15:00 AM EDT MEDENT ([facility] Outpatient SJP.[email or web address].MATTI 08/12/2020 12:00:[address] [facility]patient SJP.[email or web address].MATTI 07/29/2020 12:00:[address] [facility] Outpatient SJP.MATTI-[email or web address].MATTI 07/17/2020 12:00:[address] [facility] Outpatient 07/13/2020 12:00:00 AM EDT [facility] Outpatient SJP.[email or web address].MATTI 06/05/2020 12:00:[address] [facility] Outpatient Attender: Fab PEPE [facility] 05/26/2020 01:40:00 PM EDT MEDENT ([facility]) Outpatient Attender: Fab PEPE [facility] 04/16/2020 11:20:00 AM EDT MEDENT ([facility]) Outpatient SJP.[email or web address].MATTI 04/10/2020 12:00:[address] [facility] Outpatient SJP.MATTI-[email or web address].MATTI 02/21/2020 12:00:[address] [facility]patient SJP.MATTI-SJP.MATTI 01/31/2020 12:00:[address] [facility] Outpatient SJP.MATTI-SJP.MATTI 01/24/2020 08:42:[address] [facility] Outpatient SJP.MATTI-SJP.MATTI 01/10/2020 12:00:[address] [facility] Outpatient SJP.MATTI-SJP.MATTI 12/25/2019 08:54:[address] [facility] Outpatient SJP.MATTI-[email or web address].MATTI 12/18/2019 12:00:[address] [facility] Outpatient SJP.[email or web address].AMTTI 11/20/2019 12:00:[address] [facility] Medications Medication Brand Name Start Date [...] 11/13/2020 12:00:00 AM EST ORAL completed MEDENT ([facility]) Citalopram 20 MG Oral Tablet CITALOPRAM HYDROBROMIDE [...] Mupirocin 11/11/2020 12:00:00 AM EST active MEDENT ([facility]) Citalopram 20 MG Oral Tablet [Celexa] Celexa 11/11/2020 12:00:00 AM EST ORAL active MEDENT ([facility]) 40 mg 11/06/2020 12:00:00 AM EST [...] mouth 2 (t wo) times a day [facility] Atrial fibrillation 500 mg 09/22/2020 12:00:00 [...] by mouth 2 (two) times a day [facility] Megestrol Acetate 40 MG Oral Tablet megestrol (MEGACE) 40 MG tablet megestrol (MEGACE) 40 MG tablet 06/02/2020 12:00:00 AM EDT 4 {tbl} Oral active Take [address] [facility] 250 mg 06/01/2020 12:00:00 AM EDT [...] tablet (3 mg total) by mouth daily [facility] 40 mg 04/18/2020 12:00:00 AM EDT tablet 59 TAKE ONE TABLET BY MOUTH EVERY 6 HOURS TAKE ONE TABLET BY MOUTH EVERY 6 HOURS SOLD: 04/24/2020 [facility] Megestrol Acetate 40 MG Oral Tablet Megestrol Acetate 03/31 12:00:00 AM EDT ORAL active MEDENT ([facility]) 4 mg 04/16/2020 12:00:00 AM EDT [...] active Heparin Sodium (Porcine) 1,000 Units/mL System[facility] 5 mg 04/02/2020 12:00:00 AM EDT [...] TIMES A DAY WITH MEALS SOLD: 06/19/2020 [facility] carvedilol 12.5 MG Oral [...] 2 (two) times a day with meals [facility] 5 mg 12/20/2019 12:00:00 AM EST tablet 90 TAKE 1 TABLET BY MOUTH ONCE DAILY TAKE 1 TABLET BY MOUTH ONCE DAILY SOLD: 12/23/2019 [facility] 2.5 mg 12/20/2019 12:00:00 AM EST tablet 90 TAKE ONE TABLET BY MOUTH EVERY DAY TAKE ONE TABLET BY MOUTH EVERY DAY SOLD: 12/23/2019 [facility] carvedilol 12.5 MG Oral Tablet CARVEDILOL 07/29/2019 12:00:00 AM EDT tablet 180 TAKE ONE TABLET BY MOUTH TWICE A DAY TAKE ONE TABLET BY MOUT H TWICE A DAY SOLD: 11/01/2019 [facility] 40 mg 07/17/2019 12:00:00 AM EDT tablet,delayed release (DR/EC) 90 TAKE ONE TABLET BY MOUTH EVERY DAY TAKE ONE TABLET BY MOUTH EVERY DAY SOLD: 11/01/2019 [facility] 4 mg 07/17/2019 12:00:00 AM EDT tablet 30 TAKE 1 TABLET BY MOUTH EVERY 4 HOURS FOR NAUSEA TAKE 1 TABLET BY MOUTH EVERY 4 HOURS FOR NAUSEA SOLD: 12/09/2019 [facility] Ondansetron 4 MG Oral Tablet ondansetron (ZOFRAN) 4 MG tablet ondansetron (ZOFRAN) 4 MG tablet 07/17/2019 12:00:[address] [facility] prednisolone acetate 10 MG/ML Ophthalmic Suspension prednisoLONE acetate (PRED FORTE) 1 % ophthalmic suspension prednisoLONE acetate (PRED FORTE) 1 % ophthalmic suspension 05/15/2019 12:00:00 AM EDT aborted INSTILL 1 DROP IN THE LEFT EYE FOUR TIMES A DAY [facility] sitagliptin 25 MG Oral Tablet sitaGLIPtin (JANUVIA) 25 MG tablet sitaGLIPtin (JANUVIA) 25 MG tablet 08/03/2018 12:00:00 AM EDT 25 mg Oral aborted Take [address] [facility] fluticasone (VERAMYST) 27.5 MCG/SPRAY nasal spray 321537 2 {spray} Nasal aborted 2 sprays into each nostril S [facility] ferrous sulfate 325 MG Oral Tablet ferrous sulfate 325 (65 FE) MG tablet ferrous sulfate 325 (65 FE) MG tablet aborted FERROUS SULFATE 325 (65 Fe) MG TABS [facility] Ergocalciferol 73910 UNT Oral Capsule er gocalciferol (ERGOCALCIFEROL) 49114 units capsule ergocalciferol (ERGOCALCIFEROL) 92207 units capsule 23778 U Oral aborted Take 50,[address] [facility] Losartan Potassium 50 MG Oral Tablet losartan (COZAAR) 50 MG tablet losartan (COZAAR) 50 MG tablet 50 mg Oral aborted Ta ke [address] [facility] Calcitriol 0.23164 MG Oral Capsule calcitriol (ROCALTR OL) 0.25 MCG capsule calcitriol (ROCALTROL) 0.25 MCG capsule 0.25 ug Oral aborted Take 0.25 mcg by mouth daily [facility] Hydralazine Hydrochloride 25 MG Oral Tab let hydrALAZINE (APRESOLINE) 25 MG tablet hydrALAZINE (APRESOLINE) 25 MG tablet 25 mg Oral aborted Take 25 mg by mouth 2 (two) times a day [facility] cetirizine hydrochloride 10 MG Oral Tablet cetirizine (ZYRTEC) 10 MG tablet cetirizine (ZYRTEC) 10 MG tablet 10 mg Oral abort ed Take 10 mg [address] mouth daily [facility] Probiotic Product (PROBIOTIC DAILY PO) Oral aborted Take by mouth [facility] POLYETHYLENE GLYCOL 3350 142 MG/ML Oral Solution polyethylene glycol (GLYCOLAX) packet polyethylene glycol (GLYCOLAX) packet Oral aborted Take by mouth [facility] Darbepoetin Raul-Albumin (ARANESP IJ) aborted Inject as directed every 30 (thirty) days [facility] Cholecalciferol 5000 UNT Oral Capsule Ch olecalciferol (VITAMIN D3) 5000 UNITS capsule Cholecalciferol (VITAMIN D3) 5000 UNITS capsule 5000 U Oral aborted Take 5,000 Units by mouth daily [facility] Omeprazole 40 MG Delayed Release Oral Ca psule omeprazole (PRILOSEC) 40 MG capsule omeprazole (PRILOSEC) 40 MG capsule 40 mg Oral aborted Take 40 mg [address] mouth daily [facility] atorvastatin 10 MG Oral Tablet atorvastatin (LIPITOR) 10 MG tablet atorvastatin (LIPITOR) 10 MG tablet 10 mg Oral aborted T young 10 mg by mouth daily [facility] Insurance Providers Payer name Policy type / Coverage type Policy ID Covered green party ID Covered green party's relationship to merchant Policy Merchant Plan Information MEDICARE [id number] SP [id number] [employer] [facility] 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 [id number] SP [id number] [employer] [facility] 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 [id number] SP [id number] MEDICARE C [id number] S [id number] V65 [place] FEDERAL B [id number] S [id number] MEDICARE [id number] [place] [id number] V65 EXCELLUS BCBS [id number] Doreen [id number] EXCELLUS BCBS [id number] MEDICARE [id number] EXCELLUS C [id number] Self [id number] MEDICARE A [id number] Self [id number] MEDICARE [id number] SP [id number] V65 [employer] U/[place] Commercial [id number] Self [id number] BS Federal Commercial [id number] Self [id number] [place] Primary [id number] Self [id number] [employer]/[place] Commercial [id number] Self [id number] BS Federal Commercial [id number] Self [id number] [place] Primary [id number] Self [id number] ANSI-Not a Secondary Insurance [id number] ANSI-Medicare Part B [id number] ANSI-Medicare Part B [id number] ANSI-Not a Secondary Insurance [id number] ANSI-Not a Secondary Insurance [id number] ANSI-Medicare Part B [id number] ANSI-Not a Secondary Insurance [id number] ANSI-Medicare Part B [id number] ANSI-Not a Secondary Insurance [id number] ANSI-Medicare Part B [id number] ANSI-Medicare Part B [id number] ANSI-Not a Secondary Insurance [id number] ANSI-Not a Secondary Insurance [id number] ANSI-Medicare Part B [id number] [facility] U/W Commercial [id number] Self [id number] BS Federal Commercial [id number] Self [id number] Medicare [facility] Medicare Primary [id number] Self [id number] ANSI-Not a Secondary Insurance [id number] ANSI-Medicare Part B [id number] Acc/Dol ([place] () Workers Compensation [id number] Self [id number] [facility]/[place] Medigap Part B [id number] Self [id number] Medicare Dme Supplies Medigap Part B [id number] Self [id number] [place] Primary [id number] Self [id number] BS [place] Med[place]ap Part B [id number] Self [id number] BS Fed Plan Medigap Part B [id number] Self [id number] ANSI-Medicare Part B [id number] ANSI-Not a Secondary Insurance [id number] ANSI-Not a Secondary Insurance [id number] ANSI-Medicare Part B [id number] ANSI-Medicare Part B [id number] ANSI-Not a Secondary Insurance [id number] ANSI-Medicare Part B [id number] ANSI-Not a Secondary Insurance [id number] ANSI-Not a Secondary Insurance [id number] ANSI-Medicare Part B [id number] [facility] U/W Commercial [id number] Self [id number] Federal Commercial [id number] Self [id number] [place] Primary [id number] Self [id number] ANSI-Not a Secondary Insurance [id number] ANSI-Medicare Part B [id number] ANSI-Medicare Part B [id number] ANSI-Not a Secondary Insurance [id number] ANSI-Medicare Part B [id number] ANSI-Not a Secondary Insurance [id number] [facility] U/W Commercial [id number] Self [id number] Federal Commercial [id number] Self [id number] [place] Primary [id number] Self [id number] ANSI-Not a Secondary Insurance [id number] ANSI-Medicare Part B [id number] [facility] Medigap Part B [id number] Self [id number] [place]/[facility] Medicare Primary [id number] Self [id number] MEDICARE [id number] SP [id number] ANSI-Medicare Part B [id number] ANSI-Not a Secondary Insurance [id number] Acc/Dol ([place] () Workers Compensation [id number] Self [id number] [facility] [place] Medigap Part B [id number] Self [id number] Medicare Dme Supplies Medigap Part B [id number] Self [id number] [place] Primary [id number] Self [id number] [facility] C [id number] Self [id number] ANSI-Medicare Part B [id number] ANSI-Not a Secondary Insurance [id number] ANSI-Not a Secondary Insurance [id number] ANSI-Medicare Part B [id number] ANSI-Not a Secondary Insurance [id number] ANSI-Medicare Part B [id number] ANSI-Not a Secondary Insurance [id number] ANSI-Medicare Part B [id number] MEDICARE A [id number] Self [id number] ANSI-Medicare Part B [id number] ANSI-Not a Secondary Insurance [id number] MEDICARE C [id number] S [id number] Acc/Dol ([place]) () Workers Compensation [id number] Self [id number] [facility]/SNF Medigap Part B [id number] Self [id number] Medicare Dme Supplies Medigap Part B [id number] Self [id number] [place] Primary [id number] Self [id number] [facility] U/W Commercial [id number] Self [id number] BS [facility] Commercial [id number] Self [id number] [place] Medicare Primary [id number] Self [id number] Acc/Dol ([place]) () Workers Compensation [id number] Self [id number] [facility] [place] Medigap Part B [id number] Self [id number] Medicare Dme Supplies Medigap Part B [id number] Self [id number] [place] Primary [id number] Self [id number] Acc/Dol ([place]) () Workers Compensation [id number] Self [id number] [facility]/SNF Medigap Part B [id number] Self [id number] Medicare Dme Supplies Medigap Part B [id number] Self [id number] [place] Primary [id number] Self [id number] [employer] 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 [id number] SP [id number] MEDICARE [id number] SP [id number] Acc/Dol ([place]) () Workers Compensation [id number] Self [id number] [facility]/SNF Medigap Part B [id number] Self [id number] Medicare Dme Supplies Medigap Part B [id number] Self [id number] [place] Primary [id number] Self [id number] Acc/Dol ([place]) () Workers Compensation [id number] Self [id number] [facility]/SNF Medigap Part B [id number] Self [id number] Medicare Dme Supplies Medigap Part B [id number] Self [id number] [place] Primary [id number] Self [id number] Acc/Dol ([place]) () Workers Compensation [id number] Self [id number] [facility]/SNF Medigap Part B [id number] Self [id number] Medicare Dme Supplies Medigap Part B [id number] Self [id number] [place] Primary [id number] Self [id number] [employer] U/[employer] Commercial [id number] Self [id number] [place] Medicare Primary [id number] Self [id number] Acc/[place]ol ([place]) () Workers Compensation [id number] Self [id number] Medicare Dme Supplies Medigap Part B [id number] Self [id number] [place] Primary [id number] Self [id number] [employer] [facility] 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 [id number] SP [id number] Acc/Dol ([place]) () Workers Compensation [id number] Self [id number] [place] [id number] Self [id number] Acc/[place]ol [place]) () Workers Compensation [id number] Self [id number] [place] [id number] Self [id number] Acc/Dol [place]) () Workers Compensation [id number] Self [id number] [place] [id number] Self [id number] Acc/Dol [place]) () Workers Compensation [id number] Self [id number] [place] [id number] Self [id number] [employer] FEDERAL [id number] SP [id number] [employer] BCBS FEDERAL [id number] SP [id number] [employer] Federal Medigap Part B [id number] Self [id number] [place] [id number] Self [id number] [employer] [id number] Self [id number] [place] [id number] Self [id number] [employer] Federal Medigap Part B [id number] Self [id number] [place] [id number] Self [id number] [employer] Federal Medigap Part B [id number] Self [id number] [place] [id number] Self [id number] [employer] [id number] Self [id number] [place] [id number] Self [id number] [employer] [id number] Self [id number] [place] [id number] Self [id number] [employer] Federal Medigap Part B [id number] Self [id number] [place] [id number] Self [id number] [employer] Federal Medigap Part B [id number] Self [id number] [place] [id number] Self [id number] [employer] [id number] Self [id number] [place] [id number] Self [id number] [employer] Federal Medigap Part B [id number] Self [id number] [place] [id number] Self [id number] [employer] FEDERAL [id number] SP [id number] [employer] [id number] Self [id number] [place] Medicare Primary [id number] Self [id number] [place] Primary Self [employer] U/W Commercial Self BS Fed Plan Commercial Self Blue Shield [employer] Maintenance Organization (HMO) Self MEDICARE [id number] SP [id number] A MEDICARE [id number] SP [id number] MEDICARE [id number] SP [id number] Ghi/Emblem HLTH (pr) Medigap Part B Self BS [employer] (HMO) S elf [id number] Problems, Conditions, and Diagnoses Code Display Name Description Problem Type Effective Dates Data Source(s) I87.321 [id number] 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, ) [id number] Tremor Tremor Problem 10/26/2020 12:00:00 AM ES T MEDENT ([facility], ) [id number] Ingrowing nail Ingrowing nail Problem 08/26/2020 12:00: 00 AM EDT MED[facility] ([facility] [id number] Plantar fascial fibromatosis Plantar fascial fibromato sis Problem 08/26/2020 12:00:00 AM EDT MED[facility] ([facility] I48.91 Unspecified atrial fibrillation Unspecified atrial fib rillation [id number] 04/06/2020 12:00:[address] [facility] R52 Pain, unspecified Pain, unspecified [id number] 02/27/2020 12:00:[address] [facility] M19.90 Unspecified osteoarthritis, unspecified site Unspecified osteoarthritis, unspecified Diagnosis 10/07/2020 03:20:32 PM [facility] R06.02 Shortness of breath Shortness of breath Diagnosis 1 12/08/2019 03:20:32 PM [facility] K21.9 Gastro-esophageal reflux disease without esophagitis Gastro-esophageal reflux disease without Diagnosis 10/07/2020 03:20:32 PM [facility] Z99.2 Dependence on renal dialysis Dependence on renal dialy sis Diagnosis 10/07/2020 03:20:32 PM [facility] N18.6 End stage renal disease End stage renal disease Diagno sis 10/07/2020 03:20:32 PM [facility] 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 Type 2 diabetes mellitus with diabetic c Diagnosis 10/07/2020 03:20:32 PM [facility] E78.5 Hyperlipidemia, unspecified Hyperlipidemia, unspecifie d Diagnosis 10/07/2020 03:20:32 PM [facility] I10 Essential (primary) hypertension Essential (primary) h ypertension Diagnosis 10/07/2020 03:20:32 PM [facility] I48.91 Unspecified atrial fibrillation Unspecified atri al fibrillation Diagnosis 10/07/2020 03:20:32 PM EST [facility] Surgeries/Procedures Procedure Description Date Indications Data Source(s) ELECTROENCEPHALOGRAM W/REC AWAKE&DROWSY 12/11/2020 12: 00:00 AM EST MEDENT ([facility], ) TSTG ANS FUNCJ CARDIOVAGAL INNERVAJ PARASYMP 1 12:00:00 AM EST MEDENT ([facility] ) TSTG ANS FUNCJ CARDIOVAGAL INNERVAJ PARASYMP 1 12:00:00 AM EST MEDENT ([facility] ) TESTING AUTONOMIC NERVOUS SYSTEM FUNCTION 11/18/2020 1 2:00:00 AM EST MEDENT ([facility] ) TESTING AUTONOMIC NERVOUS SYSTEM FUNCTION 11/18/2020 1 2:00:00 AM EST MEDENT ([facility] ) MRI BRAIN BRAIN STEM W/O CONTRAST MATERIAL 11/05/2020 12:00:00 AM EST MEDENT ([facility] ) MRI BRAIN BRAIN STEM W/O CONTRAST MATERIAL 11/05/2020 12:00:00 AM EST MEDENT ([facility] ) MRI SPINAL CANAL LUMBAR W/O CONTRAST MATERIAL 11/05/19 21 12:00:00 AM EST MEDENT ([facility] ) MRI SPINAL CANAL LUMBAR W/O CONTRAST MATERIAL 11/05/19 21 12:00:00 AM EST MEDENT ([facility] ) ECG ROUTINE ECG W/LEAST 12 LDS W/I&R POCT AMB EKG Routine 10/07/2020 6:13 PM EST Atrial fibrillation Benign essential hypertension Short of breath on exertion 10/07/2020 11:13:00 PM EST Short of breath on exertionBenign essential hypertensionAtrial fibrillation [facility] Short of breath on exertion Benign essential hypertension Atrial fibrillation X-Ray Femur Minimum 2 Views 04/17/2020 12:00:00 AM EDT MEDENT ([facility] ) OPTX FEM FX PROX END NCK INT FIXJ/PROSTC RPLCMT 2019 12:00:00 AM EDT MEDENT ([facility] ) Results ID Date Data Source [id number] 11/27/2020 03:30:00 PM EST MEDENT ([facility]) Name Value Range Interpretation Code Description Data Mabel rce(s) Supporting Document(s) C reactive protein [Mass/volume] in Serum or Plasma by High sensitivity method 2.87 mg/dL 0.00-0.30 Above high normal MED[facility] ([facility]) ID Date Data Source [id number] 11/27/2020 03:30:00 PM EST MEDENT ([facility]) Name Value Range Interpretation Code Description Data Mabel rce(s) Supporting Document(s) Red Blood Count 2.99 10 4.00-5.40 Below low normal MED ENT ([facility]) White Blood Count 7.0 10 4.0-10.0 Normal (applies to non-numeri c results) [facility] ([facility]) Hemoglobin 9.2 g/dL 12.0-15.5 Below low normal [facility] ( [facility]) Mean Corpuscular Volume 96.7 fl 80.0-96.0 Above high normal [facility] ([facility]) Hematocrit 28.9 % 36.0-47.0 Below low normal [facility] ( [facility]) Mean Corpuscular HGB Conc 31.8 g/dL 32.0-36.5 Below low normal [facility] ([facility]) Mean Corpuscular Hemoglobin 30.8 pg 27.0-33.0 Norm al (applies to non-numeric results) [facility] ([facility]) Red Cell Distribution Width 13.5 % 11.5-14.5 Norm al (applies to non-numeric results) [facility] ([facility]) Platelet Count, Automated 299 10 150-450 Normal (applies to non-numeric results) [facility] ([facility]) Lymph % 12.5 % 24.0-44.0 Below low normal [facility] ( [facility]) Neutrophils % 72.1 % 36.0-66.0 Above high normal MEDE NT ([facility]) Eos % 0.6 % 0.0-3.0 Normal (applies to non-numeric resul ts) [facility] ([facility]) Cotton % 13.1 % 0.0-5.0 Above high normal [facility] ([facility]) Nucleated Red Blood Cell % 0.0 % 0-0 Normal (applies to n on-numeric results) [facility] ([facility]) Baso % 1.1 % 0.0-1.0 Above high normal [facility] ([facility]) Immature Granulocyte % 0.6 % 0-3.0 Normal (applies to non-n umeric results) [facility] ([facility]) Lymph # 0.9 10 1.5-5.0 Below low normal [facility] ( [facility]) Neutrophils # 5.1 10 1.5-8.5 Normal (applies to non-numeric re sults) [facility] ([facility]) Eos # 0.0 10 0.0-0.5 Normal (applies to non-numeric resul ts) [facility] ([facility]) Baso # 0.1 10 0.0-0.2 Normal (applies to non-numeric resul ts) [facility] ([facility]) Cotton # 0.9 10 0.0-0.8 Above high normal [facility] ([facility]) ID Date Data Source [id number] 11/11/2020 03:34:00 PM EST MED[facility] ([facility]) Name Value Range Interpretation Code Description Data Mabel rce(s) Supporting Document(s) Gram Stain Laboratory test result Normal (applies to non-n umeric results) [facility] ([facility]) FEW GRAM POSITIVE COCCI IN PAIRS Wound Culture Laboratory test result Normal (applies t o non-numeric results) [facility] ([facility]) <content>FULL REPORT IN LAB NOTES (eCW [...] CSLI standards.</content>
<content></content> ID Date Data Source [id number] 11/11/2020 03:34:00 PM EST MED[facility] ([facility]) Name Value Range Interpretation Code Description Data Mabel rce(s) Supporting Document(s) Bacteria identified in Wound by Culture Laboratory test result Normal (applies to non-numeric results) [facility] ([facility]) FEW GRAM POSITIVE COCCI IN PAIRS ID Date Data Source [id number] 11/06/2020 01:59:00 PM EST MED[facility] ([facility]) Name Value Range Interpretation Code Description Data Mabel rce(s) Supporting Document(s) Laboratory test finding (navigational concept) 62.5 s 1 2.1-14.4 Above high normal [facility] ([facility]) Laboratory test finding (navigational concept) 5.7 Above upper panic limits [facility] ([facility]) ID Date Data Source [id number] 11/06/2020 04:13:00 AM EST MED[facility] ([facility]) Name Value Range Interpretation Code Description Data Mabel rce(s) Supporting Document(s) Blood Urea Nitrogen 37 mg/dL 7-18 Above high normal [facility] ([facility]) Creatinine For GFR 5.57 mg/dL 0.55-1.30 Above high normal [facility] ([facility]) Glucose, Fasting 84 mg/dL 70-100 Normal (applies to non-numeric results) [facility] ([facility]) Glomerular Filtration Rate 8.0 Below low normal [facility] ([facility]) <content>Units are mL/min/1.73 m2</content>
<content></content>
<content>Chronic Kidney Disease Staging per NKF:</content>
<content></content>
<content>Stage I & II GFR >=60 Normal to Mildly Decreased</content>
<content>Stage III GFR 30- 59 Moderately Decreased</content>
<content>Stage IV GFR 15-29 Severely Decreased</content>
<content>Stage V GFR <15 Very Little GFR Left</content>
<content>ESRD GFR <15 on [employer]</content>
<content></content> Sodium Level 139 meq/L 136-145 Normal (applies to non-numeric res ults) [facility] ([facility]) Chloride Level 102 meq/L 98-107 Normal (applies to non-numeric r esults) [facility] ([facility]) Potassium Serum 4.0 meq/L 3.5-5.1 Normal (applies to non-numeric results) [facility] ([facility]) Carbon Dioxide Level 28 meq/L 21-32 Normal (applies to non-num ajbari results) [facility] Anion Gap 9 meq/L 8-16 Normal (applies to non-numeric resul ts) [facility] ([facility]) Calcium Level 9.4 mg/dL 8.8-10.2 Normal (applies to non-numeric re sults) [facility] ID Date Data Source [id number] 11/06/2020 04:13:00 AM EST [facility] ([facility]) Name Value Range Interpretation Code Description Data Mabel rce(s) Supporting Document(s) Ast/Sgot 16 U/L 7-37 Normal (applies to non-numeric resul ts) [facility] ([facility]) Alt/SGPT 15 U/L 12-78 Normal (applies to non-numeric resul ts) [facility] ([facility]) Bilirubin,Total 0.4 mg/dL 0.2-1.0 Normal (applies to non-numeric results) [facility] Alkaline Phosphatase 58 U/L 45-117 Normal (applies to non-num jabari results) [facility] ([facility]) Total Protein 6.5 GM/DL 6.4-8.2 Normal (applies to non-numeric re sults) [facility] ([facility]) Albumin/Globulin Ratio 1.0 1.2-2.2 Below low normal [facility] ([facility]) Albumin 3.2 GM/DL 3.2-5.2 Normal (applies to non-numeric resul ts) [facility] ([facility]) Bilirubin,Direct 0.1 mg/dL 0.0-0.2 Normal (applies to non-numeric results) [facility] ([facility]) ID Date Data Source [id number] 11/06/2020 04:13:00 AM EST [facility] ([facility]) Name Value Range Interpretation Code Description Data Mabel rce(s) Supporting Document(s) Red Blood Count 3.22 10 4.00-5.40 Below low normal [facility] ([facility]) White Blood Count 12.1 10 4.0-10.0 Above high normal [facility] ([facility]) Hemoglobin 9.9 g/dL 12.0-15.5 Below low normal [facility] ( [facility]) Mean Corpuscular Hemoglobin 30.7 pg 27.0-33.0 Norm al (applies to non-numeric results) [facility] ([facility]) Mean Corpuscular Volume 97.8 fl 80.0-96.0 Above high normal [facility] ([facility]) Hematocrit 31.5 % 36.0-47.0 Below low normal [facility] ( [facility]) Platelet Count, Automated 259 10 150-450 Normal (applies to non-numeric results) [facility] ([facility]) Mean Corpuscular HGB Conc 31.4 g/dL 32.0-36.5 Below low normal [facility] Red Cell Distribution Width 13.1 % 11.5-14.5 Norm al (applies to non-numeric results) [facility] ([facility]) Nucleated Red Blood Cell % 0.0 % 0-0 Normal (applies to n on-numeric results) [facility] ([facility]) ID Date Data Source [id number] 11/06/2020 04:12:00 AM EST MED[facility] ([facility]) Name Value Range Interpretation Code Description Data Mabel rce(s) Supporting Document(s) Prothrombin Time 54.1 s 12.5-14.3 Above high normal M [facility]ENT ([facility]) Inr 5.88 Above upper panic limits [facility] ([facility]) THERAPUTIC HUMAN INR VALUES INDICATIONS NORMAL RANGES PROPHYLAXIS/TREATMENT OF: VENOUS THROMBOSIS 2.0-3.0 PULMONARY EMBOLISM 2.0-3.0 PREVENTION OF SYSTEMIC EMBOLISM FROM: TISSUE HEART VALVES 2.0-3.0 ACUTE MYOCARDIAL INFARCTION 2.0-3.0 VALVULAR HEART DISEASE 2.0-3.0 ATRIAL FIBRILLATION 2.0-3.0 MECHANICAL VALVES(HIGH RISK) 2.5-3.5 RECURRENT MYOCARDIAL INFARCTION 2.5-3.5 ID Date Data Source [id number] 08/10/2020 06:00:00 AM EDT MED[facility] ([facility]) Name Value Range Interpretation Code Description Data Mabel rce(s) Supporting Document(s) Glucose, Fasting 103 mg/dL 70-100 Above high normal M [facility] ([facility]) Creatinine For GFR 5.99 mg/dL 0.55-1.30 Above high normal [facility] Glomerular Filtration Rate 7.4 Below low normal [facility] ([facility]) <content>Units are mL/min/1.73 m2</content>
<content></content>
<content>Chronic Kidney Disease Staging per NKF:</content>
<content></content>
<content>Stage I & II GFR >=60 Normal to Mildly Decreased</content>
<content>Stage III GFR 30- 59 Moderately Decreased</content>
<content>Stage IV GFR 15-29 Severely Decreased</content>
<content>Stage V GFR <15 Very Little GFR Left</content>
<content>ESRD GFR <15 on [employer]</content>
<content></content> Blood Urea Nitrogen 38 mg/dL 7-18 Above high normal [facility] ([facility]) Sodium Level 140 meq/L 136-145 Normal (applies to non-numeric res ults) [facility] Chloride Level 108 meq/L 98-107 Above high normal [facility] ([facility]) Potassium Serum 4.1 meq/L 3.5-5.1 Normal (applies to non-numeric results) [facility] ([facility]) Anion Gap 11 meq/L 8-16 Normal (applies to non-numeric resul ts) [facility] ([facility]) Calcium Level 8.6 mg/dL 8.8-10.2 Below low normal MEDEN T ([facility]) Carbon Dioxide Level 21 meq/L 21-32 Normal (applies to non-num jabari results) [facility] ([facility]) ID Date Data Source [id number] 08/10/2020 06:00:00 AM EDT [facility] ([facility]) Name Value Range Interpretation Code Description Data Mabel rce(s) Supporting Document(s) Prothrombin Time 16.5 s 12.5-14.3 Above high normal M [facility]ENT ([facility]) Inr 1.30 Normal (applies to non-numeric resul ts) [facility] ([facility]) THERAPUTIC HUMAN INR VALUES INDICATIONS NORMAL RANGES PROPHYLAXIS/TREATMENT OF: VENOUS THROMBOSIS 2.0-3.0 PULMONARY EMBOLISM 2.0-3.0 PREVENTION OF SYSTEMIC EMBOLISM FROM: TISSUE HEART VALVES 2.0-3.0 ACUTE MYOCARDIAL INFARCTION 2.0-3.0 VALVULAR HEART DISEASE 2.0-3.0 ATRIAL FIBRILLATION 2.0-3.0 MECHANICAL VALVES(HIGH RISK) 2.5-3.5 RECURRENT MYOCARDIAL INFARCTION 2.5-3.5 ID Date Data Source [id number] 08/10/2020 06:00:00 AM EDT [facility] ([facility]) Name Value Range Interpretation Code Description Data Mabel rce(s) Supporting Document(s) Hemoglobin 9.8 g/dL 12.0-15.5 Below low normal [facility] ( [facility]) Red Blood Count 3.08 10 4.00-5.40 Below low normal [facility] ([facility]) White Blood Count 8.5 10 4.0-10.0 Normal (applies to non-numeri c results) [facility] ([facility]) Hematocrit 30.7 % 36.0-47.0 Below low normal [facility] Mean Corpuscular Volume 99.7 fl 80.0-96.0 Above high normal [facility] ([facility]) Mean Corpuscular Hemoglobin 31.8 pg 27.0-33.0 Norm al (applies to non-numeric results) [facility] ([facility]) Red Cell Distribution Width 13.8 % 11.5-14.5 Norm al (applies to non-numeric results) [facility] ([facility]) Mean Corpuscular HGB Conc 31.9 g/dL 32.0-36.5 Below low normal [facility] ([facility]) Neutrophils % 78.5 % 36.0-66.0 Above high normal MEDE NT ([facility]) Platelet Count, Automated 278 10 150-450 Normal (applies to non-numeric results) [facility] ([facility]) Lymph % 13.1 % 24.0-44.0 Below low normal [facility] ( [facility]) Eos % 0.8 % 0.0-3.0 Normal (applies to non-numeric resul ts) [facility] ([facility]) Baso % 0.8 % 0.0-1.0 Normal (applies to non-numeric resul ts) [facility] ([facility]) Cotton % 6.4 % 0.0-5.0 Above high normal [facility] ([facility]) Nucleated Red Blood Cell % 0.0 % 0-0 Normal (applies to n on-numeric results) [facility] ([facility]) Lymph # 1.1 10 1.5-5.0 Below low normal [facility] ( [facility]) Neutrophils # 6.7 10 1.5-8.5 Normal (applies to non-numeric re sults) [facility] ([facility]) Immature Granulocyte % 0.4 % 0-3.0 Normal (applies to non-n umeric results) [facility] ([facility]) Cotton # 0.6 10 0.0-0.8 Normal (applies to non-numeric resul ts) [facility] ([facility]) Eos # 0.1 10 0.0-0.5 Normal (applies to non-numeric resul ts) [facility] ([facility]) Baso # 0.1 10 0.0-0.2 Normal (applies to non-numeric resul ts) [facility] ([facility]) Procedure Social History Code Duration Value Status Description Data Source(s ) Smoking 12/10/2020 12:00:00 AM EST Former Smoker completed Former Smoker eCW1 ([facility]) Smoking 12/10/2020 12:00:00 AM EST Former Smoker completed Former Smoker eCW1 ([facility]) Smoking 12/04/2020 12:00:00 AM EST Former Smoker completed Former Smoker eCW1 ([facility]) Alcohol intake 10/07/2020 12:00:00 AM EST No completed [facility] Smoking 10/07/2020 12:00:00 AM EST Never smoker completed Never s moker [facility] Smoking 09/30/2020 12:00:00 AM EST Quit completed Quit MED[facility] ([facility]) Vital Signs ID Date Data Source [id number] Name Value Range Interpretation Code Description Data Source(s) Lando body weight 125 [lb_av] 125 [lb_av] [facility] T ([facility]) Oxygen saturation in Arterial blood by Pulse oximetry 99 % 99 % [facility] ([facility]) Body temperature 99.0 [degF] 99.0 [degF] [facility] ([facility]) Respiratory rate 18 /min 18 /min [facility] ( [facility]) Heart rate 64 /min 64 /min [facility] ([facility]) Body height 65.5 [in_i] 65.5 [in_i] [facility] ([facility]) 5'5.50" Diastolic blood pressure 68 mm[Hg] 68 mm[Hg] [facility] ([facility]) Systolic blood pressure 118 mm[Hg] 118 mm[Hg] M [facility] ([facility]) Lando body weight 125 [lb_av] 125 [lb_av] [facility] T ([facility]) Oxygen saturation in Arterial blood by Pulse oximetry 99 % 99 % [facility] ([facility]) Body temperature 98.7 [degF] 98.7 [degF] [facility] ([facility]) Respiratory rate 18 /min 18 /min [facility] ( [facility]) Heart rate 75 /min 75 /min [facility] ([facility]) Body height 65.5 [in_i] 65.5 [in_i] [facility] ([facility]) 5'5.50" Diastolic blood pressure 78 mm[Hg] 78 mm[Hg] [facility] ([facility]) Systolic blood pressure 122 mm[Hg] 122 mm[facility]Hg[facility] Lando body weight 125 [lb_av] 125 [lb_av] [facility] T ([facility]) Oxygen saturation in Arterial blood by Pulse oximetry 97 % 97 % [facility] ([facility]) Body temperature 97.4 [degF] 97.4 [degF] [facility] ([facility]) Respiratory rate 20 /min 20 /min [facility] ( [facility]) Heart rate 78 /min 78 /min [facility] ([facility]) Body mass index (BMI) [Ratio] 24.3 kg/m2 24.3 k g/m2 [facility] ([facility]) Body weight 148.00 [lb_av] 148.00 [lb_av] [facility] T ([facility]) Body height 65.5 [in_i] 65.5 [in_i] [facility] ([facility]) 5'5.50" Diastolic blood pressure 74 mm[Hg] 74 mm[Hg] [facility] ([facility]) Systolic blood pressure 154 mm[Hg] 154 mm[Hg] M [facility] ([facility]) Diastolic blood pressure 68 mm[Hg] 68 mm[Hg] [facility] Systolic blood pressure 140 mm[Hg] 140 mm[Hg] [facility] Oxygen saturation in Arterial blood by Pulse oximetry 98 % 98 % [facility] Body mass index (BMI) [Ratio] 22.80 kg/m2 22.80 kg/m2 [facility] Body weight 62.[address] [facility] Body height 165.[address] [facility] Respiratory rate 18 /min 18 /min [facility] Heart rate 72 /min 72 /min [facility] Lando body weight 125 [lb_av] 125 [lb_av] [facility] T ([facility]) Oxygen saturation in Arterial blood by Pulse oximetry 99 % 99 % [facility] Body temperature 97.9 [degF] 97.9 [degF] [facility] ([facility]) Respiratory rate 18 /min 18 /min [facility] ( [facility]) Heart rate 86 /min 86 /min [facility] ([facility]) Body mass index (BMI) [Ratio] 25.1 kg/m2 25.1 k g/m2 [facility] ([facility]) Body weight 153.00 [lb_av] 153.00 [lb_av] [facility] ([facility]) Body height 65.5 [in_i] 65.5 [in_i] [facility] ([facility]) 5'5.50" Diastolic blood pressure 84 mm[Hg] 84 mm[Hg] [facility] ([facility]) Systolic blood pressure 140 mm[Hg] 140 mm[Hg] [facility] ([facility]) Lando body weight 125 [lb_av] 125 [lb_av] [facility] ([facility]) Oxygen saturation in Arterial blood by Pulse oximetry 98 % 98 % [facility] ([facility]) Body temperature 98.3 [degF] 98.3 [degF] [facility] Respiratory rate 20 /min 20 /min [facility] ( [facility]) Heart rate 69 /min 69 /min [facility] ([facility]) Body mass index (BMI) [Ratio] 23.9 kg/m2 23.9 k g/m2 [facility] ([facility]) Body weight 146.00 [lb_av] 146.00 [lb_av] [facility] ([facility]) Body height 65.5 [in_i] 65.5 [in_i] [facility] ([facility]) 5'5.50" Diastolic blood pressure 74 mm[Hg] 74 mm[Hg] [facility] Systolic blood pressure 144 mm[Hg] 144 mm[Hg] [facility] ([facility]) Body mass index (BMI) [Ratio] 23.4 [...] 66 [in_i] [facility] 5'6" Lando body weight 125 [lb_av] 125 [lb_av] [facility] ([facility]) Oxygen saturation in Arterial blood by Pulse oximetry 97 % 97 % [facility] ([facility]) Body temperature 96.6 [degF] 96.6 [degF] [facility] Res[facility] 20 /min 20 /min [facility] Heart rate 63 /min 63 /min [facility] ([facility]) Body mass index (BMI) [Ratio] 23.3 kg/m2 23.3 k g/m2 [facility] ([facility]) Body weight 142.00 [lb_av] 142.00 [lb_av] [facility] ([facility]) Body height 65.5 [in_i] 65.5 [in_i] [facility] ([facility]) 5'5.50" Diastolic blood pressure 82 mm[Hg] 82 mm[Hg] [facility] ([facility]) 128/palp recheck Systolic blood pressure 130 mm[Hg] 130 mm[Hg] [facility] ([facility]) 128/palp recheck Body mass index (BMI) [Ratio] 20.4 kg/m2 20.4 k g/m2 [facility] ([facility]) Body weight 130.00 [lb_av] 130.00 [lb_av] [facility] ([facility]) Body height 67 [in_i] 67 [in_i] [facility] ([facility]) 5'7" Body temperature 97.8 [degF] 97.8 [degF] [facility] ([facility]) Lando body weight 125 [lb_av] 125 [lb_av] [facility] ([facility]) Oxygen saturation in Arterial blood by Pulse oximetry 97 % 97 % [facility] ([facility]) Body temperature 97.2 [degF] 97.2 [degF] [facility] ([facility]) Respiratory rate 18 /min 18 /min [facility] ( [facility]) Heart rate 63 /min 63 /min [facility] ([facility]) Body mass index (BMI) [Ratio] 21.1 kg/m2 21.1 k g/m2 [facility] ([facility]) Body weight 129.00 [lb_av] 129.00 [lb_av] [facility] ([facility]) Body height 65.5 [in_i] 65.5 [in_i] [facility] ([facility]) 5'5.50" Diastolic blood pressure 64 mm[Hg] 64 mm[Hg] [facility] ([facility]) 138/60 recheck Systolic blood pressure 130 mm[Hg] 130 mm[facility]Hg] [facility] 138/60 recheck Patient Treatment Plan of Care Planned Activity Planned Date Details Description Data Source (s) apixaban 5 MG Oral Tablet 10/07/2020 12:00:[address] [facility] Propafenone Hydrochloride 300 MG Oral Tablet 06/05/2020 12:00:[address] [facility] Megestrol Acetate 40 MG Oral Tablet 06/02/2020 12:00:[address] [facility] Warfarin Sodium 3 MG Oral Tablet 04/27/2020 12:00:[address] [facility] 1 ML heparin sodium, porcine 1000 UNT/ML Injection 04/13/2020 12 :00:[address] [facility] carvedilol 12.5 MG Oral Tablet 12/20/2019 12:00:[address] [facility] Ondansetron 4 MG Oral Tablet 07/17/2019 12:00:[address] [facility] prednisolone acetate 10 MG/ML Ophthalmic Suspension 05/15/20 12:00:[address] [facility] sitagliptin 25 MG Oral Tablet 08/03/2018 12:00:[address] [facility] POLYETHYLENE GLYCOL 3350 142 MG/ML Oral Solution [facility] Losartan Potassium [address] [facility] fluticasone (VERAMYST) 27.5 MCG/SPRAY nasal spray [facility] ferrous sulfate [address] [facility] Ergocalciferol [address] [facility] cetirizine hydrochloride [address] [facility] Probiotic Product (PROBIOTIC DAILY PO) [facility] Cholecalciferol [address] [facility] Darbepoetin Raul-Albumin (ARANESP IJ) [facility] Hydralazine Hydrochloride [address] [facility] Calcitriol 0.[address] [facility] Omeprazole 40 MG Delayed Release Oral Capsule [facility] atorvastatin [address] [facility]
--- OUTSIDE RECORDS SUMMARY | 2020-12-22 22:23 | CCD ---
Author Author [facility] Organization [facility] Address Unknown Phone Unavailable Care Team Providers Care Photographic Equipment Technician Name Role Phone Kocan, J Antoinette PUTTY MIXER AND APPLIER Unavailable Unavailable Kocan, J Antoinette PUTTY MIXER AND APPLIER Unavailable Unavailable Kocan, J Antoinette PUTTY MIXER AND APPLIER Unavailable Unavailable Kocan, J Antoinette PUTTY MIXER AND APPLIER Unavailable Unavailable Kocan, J Antoinette PUTTY MIXER AND APPLIER Unavailable Unavailable Kocan, J Antoinette PUTTY MIXER AND APPLIER Unavailable Unavailable Kocan, J Antoinette PUTTY MIXER AND APPLIER Unavailable Unavailable Kocan, J Antoinette PUTTY MIXER AND APPLIER Unavailable Unavailable Kocan, J Antoinette PUTTY MIXER AND APPLIER Unavailable Unavailable Kocan, J Antoinette PUTTY MIXER AND APPLIER Unavailable Unavailable Kocan, J Antoinette PUTTY MIXER AND APPLIER Unavailable Unavailable Kocan, J Antoinette PUTTY MIXER AND APPLIER Unavailable Unavailable Kocan, J Antoinette PUTTY MIXER AND APPLIER Unavailable Unavailable Anneliese LESTER DPM Unavailable Unavailable [...] Unavailable ANDREWS-LEONORA, ERIC DO Unavailable Unavailable ANDREWS-LEONORA, EIRC DO Unavailable Unavailable ANDREWS-LEONORA, ERIC DO Unavailable [...] Unavailable Unavailable ANDREWS-LEONORA, ERIC DO Unavailable Unavailable ANDERWS-LEONORA, ERIC DO Unavailable Unavailable ANDREWS-LEONORA, ERIC DO [...] Unavailable Unavailable RAMBOAGNIESZKA MD Unavailable Unavailable AGNIESZKA RICSK MD Unavailable Unavailable RAMBOAGNIESZKA MD Unavailable Unavailable [...] Unavailable RAMBO, AARON MD Unavailable Unavailable RAMBO, AAORN MD Unavailable Unavailable RAMBO, AARON MD Unavailable [...] O'jose francisco, A Pradip PA Unavailable Unavailable O'josef rancisco, A Pradip PA Unavailable Unavailable O'jose francisco, [...] is protected by Article 27-F of the [facility] Public Health law. If you continue you may have access to information: Regarding HIV / AIDS; Provided by facilities licensed or operated by the [facility] Office of Mental Health; or Provided by the [facility] Office for People With Developmental Disabilities. If such information is present, then the following [facility] mandated warning applies: This information has [...] law may result in a fine or nursing home sentence or both. A general authorization for the release of medical or other information is NOT sufficient authorization for further disc losure. Family History Family Member Name Family Member Gender Family Member Status Date o f Status Description Data Source(s) Unknown Female Problem MED[facility] ([facility]) Unknown Female Problem MEDENT ([facility] ) Unknown Male Problem MEDENT ([facility]) Unknown Female Problem [facility] ([facility]) Unknown Female Problem MED[facility] ([facility]) Unknown Female Problem MED[facility] ([facility]) Unknown Male Problem [facility] ([facility] Encounters Encounter Providers Location Date Indications Data Source(s ) [place] [address] [facility] [address] 12/09/2020 12:00:00 AM EST eCW1 ([facility]) [place] [address] [facility] [address] 12/09/2020 12:00:00 AM EST eCW1 ([facility]) [place] [address] [facility] [address] 12/09/2020 12:00:00 AM EST eCW1 ([facility]) Outpatient Attender: ERIC PALACIOS [facility] 11/27/2020 12:20:00 PM EST [facility] ([facility]) Outpatient Attender: ERIC PALACIOS [facility] 11/18/2020 01:40:00 PM EST [facility] ([facility]) Outpatient Attender: ERIC PALACIOS [facility] 11/11/2020 02:00:00 PM EST [facility] ([facility]) Outpatient P.RODNEY.MATTI 11/09/2020 12:00:00 AM EST [facility] Outpatient SJP.MATTI-CHRISTOPHERP.MATTI 11/06/2020 12:00:00 AM EST [facility] Outpatient Attender: ANAYA SAAB MD Main office - [facility] 10/26/2020 01:30:00 PM EST MEDENT ([facility]) Outpatient SJP.MATTI-WALLY.MATTI 10/21/2020 12:00:00 AM EST [facility] Outpatient Attender: Antoinette Torres PUTTY MIXER AND APPLIER WALLY.MATTI-CHRISTOPHERP.MATTI 2019 12:00:00 AM EST - 10/07/2020 04:30:[address] [facility] Outpatient SJP.MATTI-WALLY.MATTI 10/07/2020 12:00:00 AM EST [facility] Outpatient SJP.MATTI-SJP.MATTI 10/05/2020 11:18:43 AM EST [facility] Outpatient Attender: ERIC PALACIOS DO [facility] 09/30/2020 10:20:00 AM EST MED[facility] ([facility]) Outpatient SJP.MATTI-SJP.MATTI 09/23/2020 12:00:00 AM EST [facility] Outpatient SJP.MATTI-SJP.MATTI 09/16/2020 12:00:00 AM EST [facility] Outpatient SJP.MATTI-SJP.MATTI 09/09/2020 12:00:00 AM EST [facility] Outpatient SJP.MATTI-SJP.MATTI 09/02/2020 12:00:00 AM EST [facility] Outpatient SJP.MATTI-SJP.MATTI 08/26/2020 10:53 :12 AM EDT - 08/26/2020 11:10:16 AM EDT [facility] Outpatient SJP.MATTI-SJP.MATTI 08/26/2020 10:52 :49 AM EDT - 08/26/2020 11:01:00 AM EDT [facility] Outpatient Attender: Pradip PEPE [employer] [facility] 08/20/2020 10:00:00 AM EDT MEDENT ([facility]) Outpatient Attender: AGNIESZKA RICKS MD SJP.MATTI-SJP.MATTI 0 12:00:00 AM EDT - 08/19/2020 12:08:56 PM EDT [facility] Outpatient Attender: REAGAN LESTER [facility] 07/31 10:15:00 AM EDT MEDENT ([facility] Outpatient SJP.MATTI-SJP.MATTI 08/12/2020 12:00:00 AM EDT [facility] Outpatient SJP.MATTI-SJP.MATTI 07/29/2020 12:00:00 AM EDT [facility] Outpatient SJP.MATTI-SJP.MATTI 07/17/2020 12:00:00 AM EDT [facility] Outpatient 07/13/2020 12:00:00 AM EDT [facility] Outpatient SJP.MATTI-SJP.MATTI 06/05/2020 12:00:00 AM EDT [facility] Outpatient Attender: Fab PEPE [facility] 05/26/2020 01:40:00 PM EDT MEDENT ([facility]) Outpatient Attender: Fab PEPE [facility] 04/16/2020 11:20:00 AM EDT MEDENT ([facility]) Outpatient SJP.MATTI-SJP.MATTI 04/10/2020 12:00:00 AM EDT [facility] Outpatient SJP.MATTI-SJP.MATTI 02/21/2020 12:00:00 AM EDT [facility] Outpatient SJP.MATTI-SJP.MATTI 01/31/2020 12:00:00 AM EDT [facility] Outpatient SJP.MATTI-SJP.MATTI 01/24/2020 08:42:39 AM EDT [facility] Outpatient SJP.MATTI-SJP.MATTI 01/10/2020 12:00:00 AM EDT [facility] Outpatient SJP.MATTI-SJP.MATTI 12/25/2019 08:54:16 AM EST [facility] Outpatient SJP.MATTI-SJP.MATTI 12/18/2019 12:00:00 AM EST [facility] Outpatient SJP.MATTI-SJP.MATTI 11/20/2019 12:00:00 AM EST [facility] Medications Medication Brand Name Start Date [...] 11/13/2020 12:00:00 AM EST ORAL completed MEDENT ([facility]) Citalopram 20 MG Oral Tablet CITALOPRAM HYDROBROMIDE [...] Mupirocin 11/11/2020 12:00:00 AM EST active MEDENT ([facility]) Citalopram 20 MG Oral Tablet [Celexa] Celexa 11/11/2020 12:00:00 AM EST ORAL active MED[facility] ([facility]) 40 mg 11/06/2020 12:00:00 AM EST tablet [...] mouth 2 (t wo) times a day [facility] Atrial fibrillation 500 mg 09/22/2020 12:00:00 [...] by mouth 2 (two) times a day [facility] Megestrol Acetate 40 MG Oral Tablet megestrol (MEGACE) 40 MG tablet megestrol (MEGACE) 40 MG tablet 06/02/2020 12:00:00 AM EDT 4 {tbl} Oral active Take 4 tablets by mouth [facility] 250 mg 06/01/2020 12:00:00 AM EDT [...] tablet (3 mg total) by mouth daily [facility] 40 mg 04/18/2020 12:00:00 AM EDT tablet 59 TAKE ONE TABLET BY MOUTH EVERY 6 HOURS TAKE ONE TABLET BY MOUTH EVERY 6 HOURS SOLD: 04/24/2020 [facility] Megestrol Acetate 40 MG Oral Tablet Megestrol Acetate 03/31 12:00:00 AM EDT ORAL active MEDENT ([facility]) 4 mg 04/16/2020 12:00:00 AM EDT tablet [...] active Heparin Sodium (Porcine) 1,000 Units/mL [facility] 5 mg 04/02/2020 12:00:00 AM EDT [...] 2 (two) times a day with meals [facility] 5 mg 12/20/2019 12:00:00 AM EST tablet 90 TAKE 1 TABLET BY MOUTH ONCE DAILY TAKE 1 TABLET BY MOUTH ONCE DAILY SOLD: 12/23/2019 [facility] 2.5 mg 12/20/2019 12:00:00 AM EST tablet 90 TAKE ONE TABLET BY MOUTH EVERY DAY TAKE ONE TABLET BY MOUTH EVERY DAY SOLD: 12/23/2019 [facility] carvedilol 12.5 MG Oral Tablet CARVEDILOL 07/29/2019 12:00:00 AM EDT tablet 180 TAKE ONE TABLET BY MOUTH TWICE A DAY TAKE ONE TABLET BY MOUT H TWICE A DAY SOLD: 11/01/2019 [facility] 40 mg 07/17/2019 12:00:00 AM EDT tablet,delayed release (DR/EC) 90 TAKE ONE TABLET BY MOUTH EVERY DAY TAKE ONE TABLET BY MOUTH EVERY DAY SOLD: 11/01/2019 [facility] 4 mg 07/17/2019 12:00:00 AM EDT tablet 30 TAKE 1 TABLET BY MOUTH EVERY 4 HOURS FOR NAUSEA TAKE 1 TABLET BY MOUTH EVERY 4 HOURS FOR NAUSEA SOLD: 12/09/2019 [facility] Ondansetron 4 MG Oral Tablet ondansetron (ZOFRAN) 4 MG tablet ondansetron (ZOFRAN) 4 MG tablet 07/17/2019 12:00:00 AM EDT ab orted [facility] prednisolone acetate 10 MG/ML Ophthalmic Suspension prednisoLONE acetate (PRED FORTE) 1 % ophthalmic suspension prednisoLONE acetate (PRED FORTE) 1 % ophthalmic suspension 05/15/2019 12:00:00 AM EDT aborted INSTILL 1 DROP IN THE LEFT EYE FOUR TIMES A DAY [facility] sitagliptin 25 MG Oral Tablet sitaGLIPtin (JANUVIA) 25 MG tablet sitaGLIPtin (JANUVIA) 25 MG tablet 08/03/2018 12:00:00 AM EDT 25 mg Oral aborted Take 25 mg by mouth [facility] fluticasone (VERAMYST) 27.5 MCG/SPRAY nasal spray [id number] 2 {spray} Nasal aborted 2 sprays into each nostril S [facility] ferrous sulfate 325 MG Oral Tablet ferrous sulfate 325 (65 FE) MG tablet ferrous sulfate 325 (65 FE) MG tablet aborted FERROUS SULFATE 325 (65 Fe) MG TABS [facility] Ergocalciferol 10735 UNT Oral Capsule er gocalciferol (ERGOCALCIFEROL) 87166 units capsule ergocalciferol (ERGOCALCIFEROL) 34053 units capsule 28660 U Oral aborted Take 50,000 Units by mouth [facility] Losartan Potassium 50 MG Oral Tablet losartan (COZAAR) 50 MG tablet losartan (COZAAR) 50 MG tablet 50 mg Oral aborted Ta ke 50 mg by mouth [facility] Calcitriol 0.03249 MG Oral Capsule calcitriol (ROCALTR OL) 0.25 MCG capsule calcitriol (ROCALTROL) 0.25 MCG capsule 0.25 ug Oral aborted Take 0.25 mcg by mouth daily [facility] Hydralazine Hydrochloride 25 MG Oral Tab let hydrALAZINE (APRESOLINE) 25 MG tablet hydrALAZINE (APRESOLINE) 25 MG tablet 25 mg Oral aborted Take 25 mg by mouth 2 (two) times a day [facility] cetirizine hydrochloride 10 MG Oral Tablet cetirizine (ZYRTEC) 10 MG tablet cetirizine (ZYRTEC) 10 MG tablet 10 mg Oral abort ed Take 10 mg by mouth daily [facility] Probiotic Product (PROBIOTIC DAILY PO) Oral aborted Take by mouth [facility] POLYETHYLENE GLYCOL 3350 142 MG/ML Oral Solution polyethylene glycol (GLYCOLAX) packet polyethylene glycol (GLYCOLAX) packet Oral aborted Take by mouth [facility] Darbepoetin Raul-Albumin (ARANESP IJ) aborted Inject as directed every 30 (thirty) days [facility] Cholecalciferol 5000 UNT Oral Capsule Ch olecalciferol (VITAMIN D3) 5000 UNITS capsule Cholecalciferol (VITAMIN D3) 5000 UNITS capsule 5000 U Oral aborted Take 5,000 Units by mouth daily [facility] Omeprazole 40 MG Delayed Release Oral Ca psule omeprazole (PRILOSEC) 40 MG capsule omeprazole (PRILOSEC) 40 MG capsule 40 mg Oral aborted Take 40 mg by mouth daily [facility] atorvastatin 10 MG Oral Tablet atorvastatin (LIPITOR) 10 MG tablet atorvastatin (LIPITOR) 10 MG tablet 10 mg Oral aborted T young 10 mg by mouth daily [facility] Insurance Providers Payer name Policy type / Coverage type Policy ID Covered libertarian ID Covered libertarian's relationship to merchant Policy Merchant Plan Information MEDICARE [id number] SP [id number] [facility] 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 [id number] SP [id number] [facility] 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 [id number] SP [id number] MEDICARE C [id number] S [id number] V65 [place] FEDERAL B [id number] S [id number] MEDICARE [id number] [place] [id number] V65 EXCELL[employer] BCBS [id number] Doreen [id number] EXCELLUS BCBS [id number] MEDICARE [id number] EXCELLUS C [id number] Self [id number] MEDICARE A [id number] Self [id number] MEDICARE [id number] SP [id number] V65 [employer] U/W Commercial [id number] Self [id number] BS Federal Commercial [id number] Self [id number] [place] Primary [id number] Self [id number] [employer] U/W Commercial [id number] Self [id number] BS Federal Commercial [id number] Self [id number] [place] Primary [id number] Self [id number] ANSI-Not a Secondary Insurance [id number] ANSI-Medicare Part B [id number] ANSI-Medicare Part B [id number] ANSI-Not a Secondary Insurance [id number] ANSI-Not a Secondary Insurance [id number] ANSI-Medicare Part B [id number] ANSI-Not a Secondary Insurance [id number] ANSI-Medicare Part B [id number] ANSI-Not a Secondary Insurance [id number] ANSI-Medicare Part B [id number] ANSI-Medicare Part B [id number] ANSI-Not a Secondary Insurance [id number] ANSI-Not a Secondary Insurance [id number] ANSI-Medicare Part B [id number] [facility] U/W Commercial [id number] Self [id number] BS Federal Commercial [id number] Self [id number] Medicare [facility] Medicare Primary [id number] Self [id number] ANSI-Not a Secondary Insurance [id number] ANSI-Medicare Part B [id number] Acc/Dol ([place] () Workers Compensation [id number] [facility] [id number] [facility] Medigap Part B [id number] Self [id number] Medicare Dme Supplies Medigap Part B [id number] Self [id number] [place] Medicare Primary [id number] Self [id number] [place] Medigap Part B [id number] Self [id number] BS Fed Plan Medigap Part B [id number] Self [id number] ANSI-Medicare Part B [id number] ANSI-Not a Secondary Insurance [id number] ANSI-Not a Secondary Insurance [id number] ANSI-Medicare Part B [id number] ANSI-Medicare Part B [id number] ANSI-Not a Secondary Insurance [id number] ANSI-Medicare Part B [id number] ANSI-Not a Secondary Insurance [id number] ANSI-Not a Secondary Insurance [id number] ANSI-Medicare Part B [id number] [facility] U/W Commercial [id number] Self [id number] Federal Commercial [id number] Self [id number] [place] Primary [id number] Self [id number] ANSI-Not a Secondary Insurance [id number] ANSI-Medicare Part B [id number] ANSI-Medicare Part B [id number] ANSI-Not a Secondary Insurance [id number] ANSI-Medicare Part B [id number] ANSI-Not a Secondary Insurance [id number] [facility] U/W Commercial [id number] Self [id number] Federal Commercial [id number] Self [id number] Medicare [place] Primary [id number] Self [id number] ANSI-Not a Secondary Insurance [id number] ANSI-Medicare Part B [id number] [facility] Medigap Part B [id number] Self [id number] Medicare [place]/[facility] Medicare Primary [id number] Self [id number] MEDICARE [id number] SP [id number] ANSI-Medicare Part B [id number] ANSI-Not a Secondary Insurance [id number] Acc/Dol ([place]) () Workers Compensation [id number] Self [id number] [facility] [place] Medigap Part B [id number] Self [id number] Medicare Dme Supplies Medigap Part B [id number] Self [id number] [place] Primary [id number] Self [id number] [facility] C [id number] Self [id number] ANSI-Medicare Part B [id number] ANSI-Not a Secondary Insurance [id number] ANSI-Not a Secondary Insurance [id number] ANSI-Medicare Part B [id number] ANSI-Not a Secondary Insurance [id number] ANSI-Medicare Part B [id number] ANSI-Not a Secondary Insurance [id number] ANSI-Medicare Part B [id number] MEDICARE A [id number] Self [id number] ANSI-Medicare Part B [id number] ANSI-Not a Secondary Insurance [id number] MEDICARE C [id number] S [id number] Acc/Dol ([place]) () Workers Compensation [id number] Self [id number] [facility]/SNF Medigap Part B [id number] Self [id number] Medicare Dme Supplies Medigap Part B [id number] Self [id number] [place] Primary [id number] Self [id number] [facility] U/W Commercial [id number] Self [id number] BS [facility] Commercial [id number] Self [id number] Medicare [place] Medicare Primary [id number] Self [id number] Acc/Dol ([place]) () Workers Compensation [id number] Self [id number] [facility] [place] Medigap Part B [id number] Self [id number] Medicare Dme Supplies Medigap Part B [id number] Self [id number] [place] Medicare Primary [id number] Self [id number] Acc/Dol ([place]) () Workers Compensation [id number] Self [id number] [facility]/SNF Medigap Part B [id number] Self [id number] Medicare Dme Supplies Medigap Part B [id number] Self [id number] [place] Primary [id number] Self [id number] [employer] 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 [id number] SP [id number] MEDICARE [id number] SP [id number] Acc/Dol ([place]) () Workers Compensation [id number] Self [id number] [facility]/SNF Medigap Part B [id number] Self [id number] Medicare Dme Supplies Medigap Part B [id number] Self [id number] [place] Medicare Primary [id number] Self [id number] Acc/Dol ([place]) () Workers Compensation [id number] Self [id number] [facility]/SNF Medigap Part B [id number] Self [id number] Medicare Dme Supplies Medigap Part B [id number] Self [id number] [place] Medicare Primary [id number] Self [id number] Acc/Dol ([place]) () Workers Compensation [id number] Self [id number] [facility]/SNF Medigap Part B [id number] Self [id number] Medicare Dme Supplies Medigap Part B [id number] Self [id number] [place] Primary [id number] Self [id number] [employer] U/W Commercial [id number] Self [id number] [place] Medicare Primary [id number] Self [id number] Acc/Dol ([place]) () Workers Compensation [id number] Self [id number] Medicare Dme Supplies Medigap Part B [id number] Self [id number] [place] Medicare Primary [id number] Self [id number] [facility] 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 [id number] SP [id number] Acc/Dol ([place]) () Workers Compensation [id number] Self [id number] [place] [id number] Self [id number] Acc/Dol ([place]) () Workers Compensation [id number] Self [id number] [place] [id number] Self [id number] Acc/Dol ([place]) () Workers Compensation [id number] Self [id number] [place] [id number] Self [id number] Acc/Dol ([place]) () Workers Compensation [id number] Self [id number] [place] [id number] Self [id number] [employer] FEDERAL [id number] SP [id number] [employer] FEDERAL [id number] SP [id number] [employer] Federal Medigap Part B [id number] Self [id number] [place] [id number] Self [id number] [employer] Commercial [id number] Self [id number] [place] [id number] Self [id number] [employer] Federal Medigap Part B [id number] Self [id number] [place] [id number] Self [id number] [employer] Federal Medigap Part B [id number] Self [id number] [place] [id number] Self [id number] [employer] [id number] Self [id number] [place] [id number] Self [id number] [employer] [id number] Self [id number] [place] [id number] Self [id number] [employer] Federal Medigap Part B [id number] Self [id number] [place] Primary [id number] Self [id number] [employer] Federal Medigap Part B [id number] Self [id number] [place] [id number] Self [id number] [employer] [id number] Self [id number] [place] [id number] Self [id number] [employer] Federal Medigap Part B [id number] Self [id number] [place] Primary [id number] Self [id number] EXCELLUS BCBS FEDERAL [id number] SP [id number] Excellus Blueshield U/W Commercial [id number] Self [id number] [place] Primary [id number] Self [id number] [place] Self [employer] U/W Commercial Self BS Fed Plan Commercial Self Blue Shield Federal Health Maintenance Organization (HMO) Self MEDICARE [id number] SP [id number] A MEDICARE [id number] SP [id number] MEDICARE [id number] SP [id number] Ghi/Emblem HLTH (pr) Medigap Part B Self BS Federal Health Maintenance Organization (HMO) S elf [id number] Problems, Conditions, and Diagnoses Code Display Name Description Problem Type Effective Dates Data Source(s) I87.321 [id number] 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 Problem 12/04/2020 12:00:00 AM EST eCW1 ([facility]) L97.822 [id number] Non-pressure chronic ulcer of other part of left lower leg with fat layer exposed Problem 12/04/2020 12:00:00 AM EST eCW1 ([facility]) [id number] Unsteady gait Unsteady gait Problem 10/26/2020 12:00:00 AM EST MEDENT ([facility], ) [id number] Tremor Tremor Problem 10/26/2020 12:00:00 AM ES T MED[facility] ([facility], ) [id number] Ingrowing nail Ingrowing nail Problem 08/26/2020 12:00: 00 AM EDT MED[facility] ([facility] [id number] Plantar fascial fibromatosis Plantar fascial fibromato sis Problem 08/26/2020 12:00:00 AM EDT [facility] ([facility] I48.91 Unspecified atrial fibrillation Unspecified atrial fib rillation [id number] 04/06/2020 12:00:00 AM EDT [facility] R52 Pain, unspecified Pain, unspecified [id number] 02/27/2020 12:00:00 AM EDT [facility] M19.90 Unspecified osteoarthritis, unspecified site Unspecified osteoarthritis, unspecified Diagnosis 10/07/2020 03:20:32 PM [facility] R06.02 Shortness of breath Shortness of breath Diagnosis 1 12/08/2019 03:20:32 PM [facility] K21.9 Gastro-esophageal reflux disease without esophagitis Gastro-esophageal reflux disease without Diagnosis 10/07/2020 03:20:32 PM [facility] Z99.2 Dependence on renal dialysis Dependence on renal dialy sis Diagnosis 10/07/2020 03:20:32 PM [facility] N18.6 End stage renal disease End stage renal disease Diagno sis 10/07/2020 03:20:32 PM [facility] 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 Type 2 diabetes mellitus with diabetic c Diagnosis 10/07/2020 03:20:32 PM [facility] E78.5 Hyperlipidemia, unspecified Hyperlipidemia, unspecifie d Diagnosis 10/07/2020 03:20:32 PM [facility] I10 Essential (primary) hypertension Essential (primary) h ypertension Diagnosis 10/07/2020 03:20:32 PM [facility] I48.91 Unspecified atrial fibrillation Unspecified atri al fibrillation Diagnosis 10/07/2020 03:20:32 PM EST [facility] Surgeries/Procedures Procedure Description Date Indications Data Source(s) ELECTROENCEPHALOGRAM W/REC AWAKE&DROWSY 12/11/2020 12: 00:00 AM EST MEDENT ([facility], ) TSTG ANS FUNCJ CARDIOVAGAL INNERVAJ PARASYMP 1 12:00:00 AM EST MEDENT ([facility] ) TSTG ANS FUNCJ CARDIOVAGAL INNERVAJ PARASYMP 1 12:00:00 AM EST MED[facility] ([facility], ) TESTING AUTONOMIC NERVOUS SYSTEM FUNCTION 11/18/2020 1 2:00:00 AM EST MED[facility] ([facility], ) TESTING AUTONOMIC NERVOUS SYSTEM FUNCTION 11/18/2020 1 2:00:00 AM EST MED[facility] ([facility] ) MRI BRAIN BRAIN STEM W/O CONTRAST MATERIAL 11/05/2020 12:00:00 AM EST MED[facility] ([facility] ) MRI BRAIN BRAIN STEM W/O CONTRAST MATERIAL 11/05/2020 12:00:00 AM EST MED[facility] ([facility], ) MRI SPINAL CANAL LUMBAR W/O CONTRAST MATERIAL 11/05/19 21 12:00:00 AM EST MED[facility] ([facility] ) MRI SPINAL CANAL LUMBAR W/O CONTRAST MATERIAL 11/05/19 21 12:00:00 AM EST MED[facility] ([facility] ) ECG ROUTINE ECG W/LEAST 12 LDS W/I&R POCT AMB EKG Routine 10/07/2020 6:13 PM EST Atrial fibrillation Benign essential hypertension Short of breath on exertion 10/07/2020 11:13:00 PM EST Short of breath on exertionBenign essential hypertensionAtrial fibrillation [facility] Short of breath on exertion Benign essential hypertension Atrial fibrillation X-Ray Femur Minimum 2 Views 04/17/2020 12:00:00 AM EDT MEDENT ([facility] ) OPTX FEM FX PROX END NCK INT FIXJ/PROSTC RPLCMT 2019 12:00:00 AM EDT MED[facility] ([facility] ) Results ID Date Data Source [id number] 11/27/2020 03:30:00 PM EST MED[facility] ([facility]) Name Value Range Interpretation Code Description Data Mabel rce(s) Supporting Document(s) C reactive protein [Mass/volume] in Serum or Plasma by High sensitivity method 2.87 mg/dL 0.00-0.30 Above high normal MEDENT ([facility]) ID Date Data Source [id number] 11/27/2020 03:30:00 PM EST MED[facility] ([facility]) Name Value Range Interpretation Code Description Data Mabel rce(s) Supporting Document(s) Red Blood Count 2.99 10 4.00-5.40 Below low normal MED ENT ([facility]) White Blood Count 7.0 10 4.0-10.0 Normal (applies to non-numeri c results) [facility] ([facility]) Hemoglobin 9.2 g/dL 12.0-15.5 Below low normal [facility] ( [facility]) Mean Corpuscular Volume 96.7 fl 80.0-96.0 Above high normal [facility] ([facility]) Hematocrit 28.9 % 36.0-47.0 Below low normal [facility] ( [facility]) Mean Corpuscular HGB Conc 31.8 g/dL 32.0-36.5 Below low normal [facility] ([facility]) Mean Corpuscular Hemoglobin 30.8 pg 27.0-33.0 Norm al (applies to non-numeric results) [facility] ([facility]) Red Cell Distribution Width 13.5 % 11.5-14.5 Norm al (applies to non-numeric results) [facility] ([facility]) Platelet Count, Automated 299 10 150-450 Normal (applies to non-numeric results) [facility] ([facility]) Lymph % 12.5 % 24.0-44.0 Below low normal [facility] ( [facility]) Neutrophils % 72.1 % 36.0-66.0 Above high normal MEDE NT ([facility]) Eos % 0.6 % 0.0-3.0 Normal (applies to non-numeric resul ts) [facility] ([facility]) Phelps % 13.1 % 0.0-5.0 Above high normal [facility] ([facility]) Nucleated Red Blood Cell % 0.0 % 0-0 Normal (applies to n on-numeric results) [facility] ([facility]) Baso % 1.1 % 0.0-1.0 Above high normal [facility] ([facility]) Immature Granulocyte % 0.6 % 0-3.0 Normal (applies to non-n umeric results) [facility] ([facility]) Lymph # 0.9 10 1.5-5.0 Below low normal [facility] ( [facility]) Neutrophils # 5.1 10 1.5-8.5 Normal (applies to non-numeric re sults) [facility] ([facility]) Eos # 0.0 10 0.0-0.5 Normal (applies to non-numeric resul ts) [facility] ([facility]) Baso # 0.1 10 0.0-0.2 Normal (applies to non-numeric resul ts) [facility] ([facility]) Phelps # 0.9 10 0.0-0.8 Above high normal [facility] ([facility]) ID Date Data Source [id number] 11/11/2020 03:34:00 PM EST MED[facility] ([facility]) Name Value Range Interpretation Code Description Data Mabel rce(s) Supporting Document(s) Gram Stain Laboratory test result Normal (applies to non-n umeric results) MED[facility] ([facility]) FEW GRAM POSITIVE COCCI IN PAIRS Wound Culture Laboratory test result Normal (applies t o non-numeric results) [facility] ([facility]) <content>FULL REPORT IN LAB NOTES (eCW a [...] CSLI standards.</content>
<content></content> ID Date Data Source [id number] 11/11/2020 03:34:00 PM EST [facility] ([facility]) Name Value Range Interpretation Code Description Data Mabel rce(s) Supporting Document(s) Bacteria identified in Wound by Culture Laboratory test result Normal (applies to non-numeric results) [facility] ([facility]) FEW GRAM POSITIVE COCCI IN PAIRS ID Date Data Source [id number] 11/06/2020 01:59:00 PM EST [facility] ([facility]) Name Value Range Interpretation Code Description Data Mabel rce(s) Supporting Document(s) Laboratory test finding (navigational concept) 62.5 s 1 2.1-14.4 Above high normal [facility] ([facility]) Laboratory test finding (navigational concept) 5.7 Above upper panic limits [facility] ([facility]) ID Date Data Source [id number] 11/06/2020 04:13:00 AM EST [facility] ([facility] Name Value Range Interpretation Code Description Data Mabel rce(s) Supporting Document(s) Blood Urea Nitrogen 37 mg/dL 7-18 Above high normal [facility] ([facility]) Creatinine For GFR 5.57 mg/dL 0.55-1.30 Above high normal [facility] ([facility]) Glucose, Fasting 84 mg/dL 70-100 Normal (applies to non-numeric results) [facility] ([facility]) Glomerular Filtration Rate 8.0 Below low normal [facility] ([facility]) <content>Units are mL/min/1.73 m2</content>
<content></content>
<content>Chronic Kidney Disease Staging per NKF:</content>
<content></content>
<content>Stage I & II GFR >=60 Normal to Mildly Decreased</content>
<content>Stage III GFR 30- 59 Moderately Decreased</content>
<content>Stage IV GFR 15-29 Severely Decreased</content>
<content>Stage V GFR <15 Very Little GFR Left</content>
<content>ESRD GFR <15 on FINISH MACHINE TENDER</content>
<content></content> Sodium Level 139 meq/L 136-145 Normal (applies to non-numeric res ults) [facility] ([facility]) Chloride Level 102 meq/L 98-107 Normal (applies to non-numeric r esults) [facility] ([facility]) Potassium Serum 4.0 meq/L 3.5-5.1 Normal (applies to non-numeric results) [facility] ([facility]) Carbon Dioxide Level 28 meq/L 21-32 Normal (applies to non-num jabari results) [facility]) Anion Gap 9 meq/L 8-16 Normal (applies to non-numeric resul ts) [facility] ([facility]) Calcium Level 9.4 mg/dL 8.8-10.2 Normal (applies to non-numeric re sults) [facility] ([facility]) ID Date Data Source [id number] 11/06/2020 04:13:00 AM EST [facility] ([facility]) Name Value Range Interpretation Code Description Data Mabel rce(s) Supporting Document(s) Ast/Sgot 16 U/L 7-37 Normal (applies to non-numeric resul ts) [facility] ([facility]) Alt/SGPT 15 U/L 12-78 Normal (applies to non-numeric resul ts) [facility] ([facility]) Bilirubin,Total 0.4 mg/dL 0.2-1.0 Normal (applies to non-numeric results) [facility] ([facility]) Alkaline Phosphatase 58 U/L 45-117 Normal (applies to non-num jabari results) [facility] ([facility]) Total Protein 6.5 GM/DL 6.4-8.2 Normal (applies to non-numeric re sults) [facility] ([facility]) Albumin/Globulin Ratio 1.0 1.2-2.2 Below low normal [facility] ([facility]) Albumin 3.2 GM/DL 3.2-5.2 Normal (applies to non-numeric resul ts) [facility] ([facility]) Bilirubin,Direct 0.1 mg/dL 0.0-0.2 Normal (applies to non-numeric results) [facility] ([facility]) ID Date Data Source [id number] 11/06/2020 04:13:00 AM EST [facility] ([facility] Name Value Range Interpretation Code Description Data Mabel rce(s) Supporting Document(s) Red Blood Count 3.22 10 4.00-5.40 Below low normal [facility] ([facility]) White Blood Count 12.1 10 4.0-10.0 Above high normal [facility] ([facility]) Hemoglobin 9.9 g/dL 12.0-15.5 Below low normal [facility] ( [facility]) Mean Corpuscular Hemoglobin 30.7 pg 27.0-33.0 Norm al (applies to non-numeric results) [facility] ([facility]) Mean Corpuscular Volume 97.8 fl 80.0-96.0 Above high normal [facility] ([facility]) Hematocrit 31.5 % 36.0-47.0 Below low normal [facility] ( [facility]) Platelet Count, Automated 259 10 150-450 Normal (applies to non-numeric results) [facility] ([facility]) Mean Corpuscular HGB Conc 31.4 g/dL 32.0-36.5 Below low [facility] Red Cell Distribution Width 13.1 % 11.5-14.5 Norm al (applies to non-numeric results) [facility] ([facility]) Nucleated Red Blood Cell % 0.0 % 0-0 Normal (applies to n on-numeric results) [facility] ([facility]) ID Date Data Source [id number] 11/06/2020 04:12:00 AM EST [facility] ([facility] Name Value Range Interpretation Code Description Data Mabel rce(s) Supporting Document(s) Prothrombin Time 54.1 s 12.5-14.3 Above high normal M [facility] ([facility]) Inr 5.88 Above upper panic limits MED[facility] ([facility]) THERAPUTIC HUMAN INR VALUES INDICATIONS NORMAL RANGES PROPHYLAXIS/TREATMENT OF: VENOUS THROMBOSIS 2.0-3.0 PULMONARY EMBOLISM 2.0-3.0 PREVENTION OF SYSTEMIC EMBOLISM FROM: TISSUE HEART VALVES 2.0-3.0 ACUTE MYOCARDIAL INFARCTION 2.0-3.0 VALVULAR HEART DISEASE 2.0-3.0 ATRIAL FIBRILLATION 2.0-3.0 MECHANICAL VALVES(HIGH RISK) 2.5-3.5 RECURRENT MYOCARDIAL INFARCTION 2.5-3.5 ID Date Data Source [id number] 08/10/2020 06:00:00 AM EDT MED[facility] ([facility]) Name Value Range Interpretation Code Description Data Mabel rce(s) Supporting Document(s) Glucose, Fasting 103 mg/dL 70-100 Above high normal M [facility] ([facility]) Creatinine For GFR 5.99 mg/dL 0.55-1.30 Above high normal [facility] Glomerular Filtration Rate 7.4 Below low normal [facility] ([facility]) <content>Units are mL/min/1.73 m2</content>
<content></content>
<content>Chronic Kidney Disease Staging per NKF:</content>
<content></content>
<content>Stage I & II GFR >=60 Normal to Mildly Decreased</content>
<content>Stage III GFR 30- 59 Moderately Decreased</content>
<content>Stage IV GFR 15-29 Severely Decreased</content>
<content>Stage V GFR <15 Very Little GFR Left</content>
<content>ESRD GFR <15 on FINISH MACHINE TENDER</content>
<content></content> Blood Urea Nitrogen 38 mg/dL 7-18 Above high normal [facility] ([facility]) Sodium Level 140 meq/L 136-145 Normal (applies to non-numeric res ults) [facility] Chloride Level 108 meq/L 98-107 Above high normal [facility] ([facility]) Potassium Serum 4.1 meq/L 3.5-5.1 Normal (applies to non-numeric results) [facility] ([facility]) Anion Gap 11 meq/L 8-16 Normal (applies to non-numeric resul ts) [facility] ([facility]) Calcium Level 8.6 mg/dL 8.8-10.2 Below low normal MEDEN T ([facility]) Carbon Dioxide Level 21 meq/L 21-32 Normal (applies to non-num jabari results) [facility] ([facility]) ID Date Data Source [id number] 08/10/2020 06:00:00 AM EDT [facility] ([facility] Name Value Range Interpretation Code Description Data Mabel rce(s) Supporting Document(s) Prothrombin Time 16.5 s 12.5-14.3 Above high normal M [facility] ([facility]) Inr 1.30 Normal (applies to non-numeric resul ts) [facility] ([facility]) THERAPUTIC HUMAN INR VALUES INDICATIONS NORMAL RANGES PROPHYLAXIS/TREATMENT OF: VENOUS THROMBOSIS 2.0-3.0 PULMONARY EMBOLISM 2.0-3.0 PREVENTION OF SYSTEMIC EMBOLISM FROM: TISSUE HEART VALVES 2.0-3.0 ACUTE MYOCARDIAL INFARCTION 2.0-3.0 VALVULAR HEART DISEASE 2.0-3.0 ATRIAL FIBRILLATION 2.0-3.0 MECHANICAL VALVES(HIGH RISK) 2.5-3.5 RECURRENT MYOCARDIAL INFARCTION 2.5-3.5 ID Date Data Source [id number] 08/10/2020 06:00:00 AM EDT [facility] ([facility] Name Value Range Interpretation Code Description Data Mabel rce(s) Supporting Document(s) Hemoglobin 9.8 g/dL 12.0-15.5 Below low normal [facility] ( [facility]) Red Blood Count 3.08 10 4.00-5.40 Below low normal [facility] ([facility]) White Blood Count 8.5 10 4.0-10.0 Normal (applies to non-numeri c results) [facility] ([facility]) Hematocrit 30.7 % 36.0-47.0 Below low normal [facility] Mean Corpuscular Volume 99.7 fl 80.0-96.0 Above high normal [facility] ([facility]) Mean Corpuscular Hemoglobin 31.8 pg 27.0-33.0 Norm al (applies to non-numeric results) [facility] ([facility]) Red Cell Distribution Width 13.8 % 11.5-14.5 Norm al (applies to non-numeric results) [facility] ([facility]) Mean Corpuscular HGB Conc 31.9 g/dL 32.0-36.5 Below low normal [facility] ([facility]) Neutrophils % 78.5 % 36.0-66.0 Above high normal MEDE NT ([facility]) Platelet Count, Automated 278 10 150-450 Normal (applies to non-numeric results) [facility] ([facility]) Lymph % 13.1 % 24.0-44.0 Below low normal [facility] ( [facility]) Eos % 0.8 % 0.0-3.0 Normal (applies to non-numeric resul ts) [facility] ([facility]) Baso % 0.8 % 0.0-1.0 Normal (applies to non-numeric resul ts) [facility] ([facility]) Phelps % 6.4 % 0.0-5.0 Above high normal [facility] ([facility]) Nucleated Red Blood Cell % 0.0 % 0-0 Normal (applies to n on-numeric results) [facility] ([facility]) Lymph # 1.1 10 1.5-5.0 Below low normal [facility] ( [facility]) Neutrophils # 6.7 10 1.5-8.5 Normal (applies to non-numeric re sults) [facility] ([facility]) Immature Granulocyte % 0.4 % 0-3.0 Normal (applies to non-n umeric results) [facility] ([facility]) Phelps # 0.6 10 0.0-0.8 Normal (applies to non-numeric resul ts) [facility] ([facility]) Eos # 0.1 10 0.0-0.5 Normal (applies to non-numeric resul ts) [facility] ([facility]) Baso # 0.1 10 0.0-0.2 Normal (applies to non-numeric resul ts) [facility] ([facility]) Procedure Social History Code Duration Value Status Description Data Source(s ) Smoking 12/10/2020 12:00:00 AM EST Former Smoker completed Former Smoker eCW1 ([facility]) Smoking 12/10/2020 12:00:00 AM EST Former Smoker completed Former Smoker eCW1 ([facility]) Smoking 12/04/2020 12:00:00 AM EST Former Smoker completed Former Smoker eCW1 ([facility]) Alcohol intake 10/07/2020 12:00:00 AM EST No completed [facility] Smoking 10/07/2020 12:00:00 AM EST Never smoker completed Never s moker [facility] Smoking 09/30/2020 12:00:00 AM EST Quit completed Quit [facility] ([facility]) Vital Signs ID Date Data Source [id number] Name Value Range Interpretation Code Description Data Source(s) [place] body weight 125 [lb_av] 125 [lb_av] MEDEN T ([facility]) Oxygen saturation in Arterial blood by Pulse oximetry 99 % 99 % [facility] ([facility]) Body temperature 99.0 [degF] 99.0 [degF] [facility] ([facility]) Respiratory rate 18 /min 18 /min [facility] ( [facility]) Heart rate 64 /min 64 /min [facility] ([facility]) Body height 65.5 [in_i] 65.5 [in_i] MED[facility] ([facility]) 5'5.50" Diastolic blood pressure 68 mm[Hg] 68 mm[Hg] [facility] ([facility]) Systolic blood pressure 118 mm[Hg] 118 mm[Hg] M [facility] ([facility]) [place] body weight 125 [lb_av] 125 [lb_av] MEDEN T ([facility]) Oxygen saturation in Arterial blood by Pulse oximetry 99 % 99 % [facility] ([facility]) Body temperature 98.7 [degF] 98.7 [degF] [facility] ([facility]) Respiratory rate 18 /min 18 /min [facility] ( [facility]) Heart rate 75 /min 75 /min [facility] ([facility]) Body height 65.5 [in_i] 65.5 [in_i] [facility] ([facility]) 5'5.50" Diastolic blood pressure 78 mm[Hg] 78 mm[Hg] [facility] ([facility]) Systolic blood pressure 122 mm[Hg] 122 mm[Hg] [facility] [place] body weight 125 [lb_av] 125 [lb_av] [facility] T ([facility]) Oxygen saturation in Arterial blood by Pulse oximetry 97 % 97 % [facility] ([facility]) Body temperature 97.4 [degF] 97.4 [degF] [facility] ([facility]) Respiratory rate 20 /min 20 /min [facility] ( [facility]) Heart rate 78 /min 78 /min [facility] ([facility]) Body mass index (BMI) [Ratio] 24.3 kg/m2 24.3 k g/m2 [facility] ([facility]) Body weight 148.00 [lb_av] 148.00 [lb_av] [facility] T ([facility]) Body height 65.5 [in_i] 65.5 [in_i] [facility] ([facility]) 5'5.50" Diastolic blood pressure 74 mm[Hg] 74 mm[Hg] [facility] ([facility]) Systolic blood pressure 154 mm[Hg] 154 mm[Hg] M [facility] ([facility]) Diastolic blood pressure 68 mm[Hg] 68 mm[Hg] [facility] Systolic blood pressure 140 mm[Hg] 140 mm[Hg] [facility] Oxygen saturation in Arterial blood by Pulse oximetry 98 % 98 % [facility] Body mass index (BMI) [Ratio] 22.80 kg/m2 22.80 kg/m2 [facility] Body weight 62.143 kg 62.143 kg [facility] Body height 165.1 cm 165.1 cm [facility] Respiratory rate 18 /min 18 /min [facility] Heart rate 72 /min 72 /min [facility] [place] body weight 125 [lb_av] 125 [lb_av] [facility] T ([facility]) Oxygen saturation in Arterial blood by Pulse oximetry 99 % 99 % [facility] ([facility]) Body temperature 97.9 [degF] 97.9 [degF] [facility] ([facility]) Respiratory rate 18 /min 18 /min [facility] ( [facility]) Heart rate 86 /min 86 /min [facility] ([facility]) Body mass index (BMI) [Ratio] 25.1 kg/m2 25.1 k g/m2 [facility] ([facility]) Body weight 153.00 [lb_av] 153.00 [lb_av] [facility] T ([facility]) Body height 65.5 [in_i] 65.5 [in_i] [facility] ([facility]) 5'5.50" Diastolic blood pressure 84 mm[Hg] 84 mm[Hg] [facility] ([facility]) Systolic blood pressure 140 mm[Hg] 140 mm[Hg] [facility] ([facility]) [place] body weight 125 [lb_av] 125 [lb_av] [facility] T ([facility]) Oxygen saturation in Arterial blood by Pulse oximetry 98 % 98 % [facility] ([facility]) Body temperature 98.3 [degF] 98.3 [degF] [facility] ([facility]) Respiratory rate 20 /min 20 /min [facility] ( [facility]) Heart rate 69 /min 69 /min [facility] ([facility]) Body mass index (BMI) [Ratio] 23.9 kg/m2 23.9 k g/m2 [facility] ([facility]) Body weight 146.00 [lb_av] 146.00 [lb_av] [facility] ([facility]) Body height 65.5 [in_i] 65.5 [in_i] [facility] ([facility]) 5'5.50" Diastolic blood pressure 74 mm[Hg] 74 mm[Hg] [facility] ([facility]) Systolic blood pressure 144 mm[Hg] 144 mm[Hg] [facility] ([facility]) Body mass index (BMI) [Ratio] 23.4 kg/m2 [...] 66 [in_i] [facility] ([facility] 5'6" [place] body weight 125 [lb_av] 125 [lb_av] [facility] T ([facility]) Oxygen saturation in Arterial blood by Pulse oximetry 97 % 97 % [facility] ([facility]) Body temperature 96.6 [degF] 96.6 [degF] [facility] 20 /min 20 /[facility] Heart rate 63 /min 63 /min [facility] ([facility]) Body mass index (BMI) [Ratio] 23.3 kg/m2 23.3 k g/m2 [facility] ([facility]) Body weight 142.00 [lb_av] 142.00 [lb_av] [facility] T ([facility]) Body height 65.5 [in_i] 65.5 [in_i] [facility] ([facility]) 5'5.50" Diastolic blood pressure 82 mm[Hg] 82 mm[Hg] [facility] ([facility]) 128/palp recheck Systolic blood pressure 130 mm[Hg] 130 mm[Hg] [facility] ([facility]) 128/palp recheck Body mass index (BMI) [Ratio] 20.4 kg/m2 20.4 k g/m2 [facility] ([facility]) Body weight 130.00 [lb_av] 130.00 [lb_av] [facility] T ([facility]) Body height 67 [in_i] 67 [in_i] [facility] ([facility]) 5'7" Body temperature 97.8 [degF] 97.8 [degF] [facility] ([facility]) [place] body weight 125 [lb_av] 125 [lb_av] MEDEN T ([facility]) Oxygen saturation in Arterial blood by Pulse oximetry 97 % 97 % [facility] ([facility]) Body temperature 97.2 [degF] 97.2 [degF] [facility] ([facility]) Respiratory rate 18 /min 18 /min [facility] ( [facility]) Heart rate 63 /min 63 /min [facility] ([facility]) Body mass index (BMI) [Ratio] 21.1 kg/m2 21.1 k g/m2 [facility] ([facility]) Body weight 129.00 [lb_av] 129.00 [lb_av] [facility] T ([facility]) Body height 65.5 [in_i] 65.5 [in_i] [facility] ([facility]) 5'5.50" Diastolic blood pressure 64 mm[Hg] 64 mm[Hg] [facility] ([facility]) 138/60 recheck Systolic blood pressure 130 mm[Hg] 130 mm[Hg] [facility] 138/60 recheck Patient Treatment Plan of Care Planned Activity Planned Date Details Description Data Source (s) apixaban 5 MG Oral Tablet 10/07/2020 12:00:00 AM EST [facility] Propafenone Hydrochloride 300 MG Oral Tablet 06/05/2020 12:00:00 AM EDT [facility] Megestrol Acetate 40 MG Oral Tablet 06/02/2020 12:00:00 AM EDT [facility] Warfarin Sodium 3 MG Oral Tablet 04/27/2020 12:00:00 AM EDT [facility] 1 ML heparin sodium, porcine 1000 UNT/ML Injection 04/13/2020 12 :00:00 AM EDT [facility] carvedilol 12.5 MG Oral Tablet 12/20/2019 12:00:00 AM EST [facility] Ondansetron 4 MG Oral Tablet 07/17/2019 12:00:00 AM EDT [facility] prednisolone acetate 10 MG/ML Ophthalmic Suspension 05/15/20 12:00:00 AM EDT [facility] sitagliptin 25 MG Oral Tablet 08/03/2018 12:00:00 AM EDT [facility] POLYETHYLENE GLYCOL 3350 142 MG/ML Oral Solution [facility] Losartan Potassium 50 MG Oral Tablet [facility] fluticasone (VERAMYST) 27.5 MCG/SPRAY nasal spray [facility] ferrous sulfate 325 MG Oral Tablet [facility] Ergocalciferol 77768 UNT Oral Capsule [facility] cetirizine hydrochloride 10 MG Oral Tablet [facility] Probiotic Product (PROBIOTIC DAILY PO) [facility] Cholecalciferol 5000 UNT Oral Capsule [facility] Darbepoetin Raul-Albumin (ARANESP IJ) [facility] Hydralazine Hydrochloride 25 MG Oral Tablet [facility] Calcitriol 0.71040 MG Oral Capsule [facility] Omeprazole 40 MG Delayed Release Oral Capsule [facility] atorvastatin 10 MG Oral Tablet [facility]
[2020-12-22 22:52] LABS: FERRITIN 1308 NG/ML (8-252); IRON (FE) 28 UG/DL (50-170); PERCENT SATURATION 17.2 % (13.2-45.0); TOTAL IRON BINDING CAPACITY 163 UG/DL (250-450)
[2020-12-22] MEDS ORDERED: WARF-23 PO (22:54)
[2020-12-22] MEDS ORDERED: PANT40TA29 PO (22:54)
[2020-12-22] MEDS ORDERED: MUPI2OI EXT (22:54)
[2020-12-22] MEDS ORDERED: CARV12.5 PO (22:54)
[2020-12-22] MEDS ORDERED: PROP300T PO (22:54)
[2020-12-22] MEDS ORDERED: BUPR-335 PO (22:54)
[2020-12-22] MEDS ORDERED: MEGE40TA PO (22:54)
[2020-12-22] MEDS ORDERED: DOCU100C16 PO (22:54)
[2020-12-22] MEDS ORDERED: ONDA-83 PO (22:54)
[2020-12-22 22:59] LABS: VITAMIN B12 LEVEL 600 PG/ML (247-911)
[2020-12-23] VITALS (9 sets, daily range): BP systolic 114–145; BP diastolic 45–75
[2020-12-23] MEDS ORDERED: WARFARIN SOD 5MG TAB PO SCH (00:45)
[2020-12-23] MEDS ORDERED: ONDANSETRON 4 MG TAB PO PRN (00:45)
[2020-12-23] MEDS: CARVedilol 12.5 MG TAB PO SCH ×3 (01:09→20:20)
[2020-12-23] MEDS: PROPAFENONE 150 MG TAB PO SCH ×3 (01:09→20:19)
[2020-12-23] MEDS: MEGESTROL 40 MG TAB PO SCH ×4 (01:10→17:22)
[2020-12-23 06:33] LABS: HEMOGLOBIN 7.8 g/dl (12.0-15.5); MEAN CORPUSCULAR HEMOGLOBIN 30.5 pg (27.0-33.0); MEAN CORPUSCULAR HGB CONC 31.2 g/dl (32.0-36.5); MEAN CORPUSCULAR VOLUME 97.7 fl (80.0-96.0); PLATELET COUNT, AUTOMATED 285 10^3/uL (150-450); RED BLOOD COUNT 2.56 10^6/uL (4.00-5.40); WHITE BLOOD COUNT 6.7 10^3/uL (4.0-10.0)
[2020-12-23 06:48] LABS: INR 4.57; PROTHROMBIN TIME 44.3 SECONDS (12.5-14.3)
[2020-12-23 06:59] LABS: CALCIUM LEVEL 9.6 MG/DL (8.8-10.2); CREATININE FOR GFR 4.94 MG/DL (0.55-1.30); GLOMERULAR FILTRATION RATE 9.2 (>39); POTASSIUM SERUM 3.3 MEQ/L (3.5-5.1)
[2020-12-23] MEDS ORDERED: SODIUM CHLORIDE 0.9% 1000ML IV PRN (08:00)
[2020-12-23] MEDS ORDERED: LIDOCAINE 1% SDV 5ML VIAL SC PRN (08:00)
[2020-12-23] MEDS ORDERED: DARBEPOETIN 200MCG/0.4ML *DIALYSIS* SYRINGE (J0882 PER 1MCG) IV SCH (08:00)
[2020-12-23 08:24] LABS: PERCENT SATURATION 22.2 % (13.2-45.0)
[2020-12-23] MEDS: DOCUSATE SODIUM 100MG CAPSULE PO SCH (08:33)
[2020-12-23] MEDS: CitaloPRAM (CeleXA) 20 MG TAB PO SCH (08:33)
[2020-12-23] MEDS: PANTOPRAZOLE 40MG TAB (PROTONIX) PO SCH (08:33)
[2020-12-23] MEDS: buPROPion **XL** TABLET 150MG (WELLBUTRIN XL) PO SCH (08:40)
[2020-12-23] MEDS: IRON SUCROSE 100MG 5ML VIAL (J1756 PER 1MG) IV SCH (10:06)
[2020-12-23] MEDS: MUPIROCIN 2% OINT 22 GM TUBE EXT SCH ×2 (13:38→20:19)
--- NOTE | 2020-12-23 17:16 | CR ---
NEPHROLOGY CONSULTATION DATE: 12/23/2020 REQUESTING PHYSICIAN: Santiago Zaldivar M.D. REASON FOR CONSULTATION: Management of end-stage renal disease and hemodialysis. CHIEF COMPLAINT: Patient presented to hospital yesterday with weakness and falls. HISTORY OF PRESENT ILLNESS: Marion Santillan is a 70-year-old female with a past medical history of end-stage renal disease on hemodialysis every Monday, Monday and Monday, hypertension, persistent AFib on anticoagulation, who presented to the hospital yesterday with weakness and multiple falls. She was even falling out of her wheelchair. She was admitted under the hospitalist service last night. Nephrology service was called for further help in the management of this patient because today is patient's regular day of dialysis. Patient was also found to have worsening anemia on admission and her INR is 4.5 now. I saw and evaluated the patient today morning at the bedside. Patient was awake and alert. She was able to provide me with the history. She was getting ready to eat her breakfast when I saw her in the morning. PAST MEDICAL HISTORY: End-stage renal disease on hemodialysis every Monday, Monday and Monday via left upper arm AV fistula, persistent AFib, hypertension, hyperlipidemia. PAST SURGICAL HISTORY: Status post left upper arm AV fistula placement, history of cataract surgery, right ankle fracture surgery, status post right hip hemiarthroplasty for fracture neck of femur, history of hysterectomy in the past. ALLERGIES: He is allergic to sulfa drugs. FAMILY HISTORY: No significant family history of end-stage renal disease requiring hemodialysis. SOCIAL HISTORY: Patient lives alone, but her daughter and son in law help her. She denies any smoking, illicit drug abuse or alcohol abuse at this time. REVIEW OF SYSTEMS: Constitutional: She denies any fevers or chills, but she does report weakness. Eyes: She denies any blurry vision or double vision. ENT: She denies any dysphagia or odynophagia. Cardiovascular: She denies any chest pain or palpitations. Respiratory: She denies any shortness of breath. GI: No nausea or vomiting. Genitourinary: Decreased urine output. Musculoskeletal: She reports muscle weakness. Skin: She denies any rashes or ulcers. Psychiatric: No depression or anxiety. Hematological/Oncological: She denies any easy bleeding or bruising. REGISTERED PRIVATE DUTY NURSE: She reports weakness and falls. All other review of systems is negative. PHYSICAL EXAMINATION: GENERAL: Patient is awake, alert, oriented x3, lying in the bed. VITAL SIGNS: Temperature 97.9 degrees Fahrenheit, blood pressure 125/56, pulse 59, respiratory rate 16, saturating 98% on room air. INTAKE AND OUTPUT: Urine output recorded as 100 mL. HEAD AND NECK: Extraocular muscles intact. Pupils equally round and reactive to light. Mucous membranes are moist. Neck is supple. There is no JVD. CARDIOVASCULAR: S1, S2, regular rate. No edema of the bilateral lower extremities. RESPIRATORY: Chest is clear to auscultation bilaterally. Bilateral equal air entry. No rales or rhonchi. ABDOMEN: Soft, positive bowel sounds, nontender, no organomegaly. MUSCULOSKELETAL: No clubbing or cyanosis. Mild tremors of the extremities at rest were noted. REGISTERED PRIVATE DUTY NURSE: No focal deficit. She is able to move her extremities, but she is wheelchair bound for the last couple of months. LABORATORY REVIEW: CBC showed WBC 6.7, hemoglobin 7.8, platelets 285,000. Urinalysis showed 2+ protein, 1+ bacteria, negative leukocyte esterase. BMP showed sodium 141, potassium 3.3, chloride 105, bicarb 28, BUN 23, creatinine 4.9. Iron 30, TIBC 135, transferrin saturation 22.2, ferritin 1,177. CURRENT INPATIENT MEDICATIONS: Patient's medications were all reviewed by myself. She is on Tylenol p.r.n., Mylanta 30 mL p.r.n. dyspepsia, Wellbutrin 300 mg daily, Coreg 12.5 mg p.o. twice a day, Celexa 20 mg p.o. daily. I have started her on Aranesp 200 mcg with dialysis. She is on Colace 100 mg p.o. daily. I have started her on Venofer 100 mg I.V. with dialysis. She is on Megace 40 mg p.o. every 6 hours, Milk of Magnesia daily p.r.n., Zofran p.r.n., Protonix 40 mg p.o. daily, Propafenone 300 mg p.o. twice a day. Warfarin 5 mg p.o. daily has been stopped because her INR done on admission is 4.5. ASSESSMENT AND PLAN: 1. End-stage renal disease: Today is patient's regular day of dialysis, she will be dialyzed in the afternoon. Ultrafiltration goal will be around 1 liter. 2. Anemia secondary to end-stage renal disease: Patient's anemia is worse than her baseline. Aranesp and Venofer have been started, however given her elevated INR, there is a risk of GI bleed as well. Continue Protonix and hold Coumadin. 3. Atrial fibrillation: Heart rate is controlled at this time with Coreg. She was anticoagulated with Coumadin but INR is supratherapeutic, so Coumadin is on hold. 4. Hypokalemia: Patient will be dialyzed with a 4K bath. 5. Weakness and falls: Patient needs to be evaluated by rehab. Thank you for involving me in the care of this patient. I shall be happy to follow the patient along with you tomorrow morning.
--- NOTE | 2020-12-23 20:25 | IPNPDOC ---
Subjective Date Seen The patient was seen on 12/23/20. Subjective Chief Complaint/HPI Mrs. Santillan is a 70-year-old female with end-stage renal disease on dialysis M,W,F who is here for having frequent falls. This morning she was seen eating breakfast prior to going to dialysis. Denies any chest pain or dyspnea. She needed blood, and I spoke to her about the risks and benefits of receiving blood. She is agreeable and signed consent for blood products. Objective Physical Examination General Exam: Positive: Alert, Cooperative Eye Exam: Positive: EOMI; Negative: Sclera icteric ENT Exam: Positive: Atraumatic Neck Exam: Positive: Supple Chest Exam: Positive: Clear to auscultation; Negative: Rales, Rhonchi, Wheezing Heart Exam: Positive: Rate Normal, Regular Rhythm Abdomen Exam: Positive: Normal bowel sounds, Soft; Negative: Tenderness Neuro Exam: Positive: Normal Speech, Cranial Nerves 3-12 NL Psych Exam: Positive: Mental status NL, Mood NL Assessment /Plan Assessment Mrs. Santillan is a 70-year-old female with end-stage renal disease on dialysis M,W,F who is here for having frequent falls. Patient's daughter is concerned because her mother lives alone and that she's become more forgetful. Today she is noted to be anemic with coagulopathy. Warfarin was held and patient will be transfused with 1 unit of blood during dialysis. Patient to work with physical therapy tomorrow Plan/VTE VTE Prophylaxis Ordered?: Yes Plan 1. Weakness and frequent falls Most likely secondary to deconditioning and debility Physical therapy to work with patient when more stable Patient lives alone and daughter is concerned. Patient may need placement 2. Microcytic anemia Suspecting anemia of chronic disease Received 1 unit of blood at dialysis 3. Coagulopathy INR today 4.57 Secondary to warfarin Held warfarin Monitor INR 4. Atrial fibrillation Continue flecainide Holding warfarin as supratherapeutic 5. End-stage renal disease Nephrology following, recommendations appreciated Dialysis Monday 6. Hypertension On Coreg 7. DVT prophylaxis On warfarin, but currently hypercoagulable. Continue to monitor INRs VS, I&O, 24H, Fishbone Vital Signs/I&O Vital Signs Date Time Temp Pulse Resp B/P (MAP) Pulse Ox O2 Delivery O2 Flow Rate FiO2 12/23/20 17:21 97.7 12/23/20 14:00 60 18 124/45 (71) 98 Room Air I&O- Last 24 Hours up to 6 AM 12/23/20 06:00 Intake Total 0 ml Balance 0 ml Laboratory Data 24H LABS Laboratory Tests 2 12/23/20 06:01: Reticulocyte # (auto) 70.9, Nucleated Red Blood Cells % (auto) 0.0, Percent Reticulocyte Count 2.8H, Reticulocyte Hemoglobin Equivalent 34.8, Prothrombin Time 44.3H, Prothromb Time International Ratio 4.57, Anion Gap 8, Glomerular Filtration Rate 9.2L, Calcium Level 9.6, Iron Level 30L, Total Iron Binding Capacity 135L, Transferrin % Saturation 22.2, Ferritin 1177H, Lactate Dehydrogenase 122 CBC/BMP Laboratory Tests 12/23/20 06:01 Microbiology Microbiology 12/22/20 Respiratory Virus Panel (PCR) ([facility]) - Final, Complete LEE PETERSEN DO Dec 23, 2020 20:25
[2020-12-24] MEDS: MEGESTROL 40 MG TAB PO SCH ×6 (00:45→23:21)
[2020-12-24 06:00] VITALS: BP 132/53
[2020-12-24 08:30] LABS: HEMATOCRIT 34.9 % (36.0-47.0); MEAN CORPUSCULAR HEMOGLOBIN 30.1 pg (27.0-33.0); MEAN CORPUSCULAR HGB CONC 31.5 g/dl (32.0-36.5); MEAN CORPUSCULAR VOLUME 95.6 fl (80.0-96.0); PLATELET COUNT, AUTOMATED 301 10^3/uL (150-450); RED BLOOD COUNT 3.65 10^6/uL (4.00-5.40); WHITE BLOOD COUNT 6.3 10^3/uL (4.0-10.0)
[2020-12-24 08:59] LABS: CALCIUM LEVEL 10.3 MG/DL (8.8-10.2); CREATININE FOR GFR 3.56 MG/DL (0.55-1.30); GLOMERULAR FILTRATION RATE 13.5 (>39); POTASSIUM SERUM 3.8 MEQ/L (3.5-5.1)
[2020-12-24 09:16] LABS: INR 4.44; PROTHROMBIN TIME 43.3 SECONDS (12.5-14.3)
--- NOTE | 2020-12-24 09:23 | ECGEPIP ---
[facility] - ED Test Date: 2020-12-22 Pat Name: ALANNA CARRILLO Department: Room: [place] [address] Gender: Female Order Processing Clerk: ED : 1950 Requested By: REGLA Ocasio PA-C Order Number: [id number] Reading MD: aRfaela Cordova Measurements Intervals [place] Rate: 67 P: 86 ND: 168 QRS: 9 QRSD: 172 T: 24 QT: 508 QTc: 536 Interpretive Statements Normal sinus rhythm Right bundle branch block prolonged qtc Electronically Signed on 12-24-2020 9:23:15 EST by Rafaela Cordova
[2020-12-24] MEDS: PANTOPRAZOLE 40MG TAB (PROTONIX) PO SCH (10:03)
[2020-12-24] MEDS: buPROPion **XL** TABLET 150MG (WELLBUTRIN XL) PO SCH (10:04)
[2020-12-24] MEDS: CitaloPRAM (CeleXA) 20 MG TAB PO SCH (10:04)
[2020-12-24] MEDS: CARVedilol 12.5 MG TAB PO SCH ×2 (10:04→20:48)
[2020-12-24] MEDS: DOCUSATE SODIUM 100MG CAPSULE PO SCH (10:04)
[2020-12-24] MEDS: PROPAFENONE 150 MG TAB PO SCH ×2 (10:04→20:47)
[2020-12-24] MEDS: MUPIROCIN 2% OINT 22 GM TUBE EXT SCH ×2 (10:05→20:48)
--- NOTE | 2020-12-24 12:15 | IPN ---
PROGRESS NOTE DATE: 12/24/2020 SUBJECTIVE: The patient was seen and examined at the bedside today morning. She is afebrile, hemodynamically stable. She denies any active complaints at this time. She reports her weakness is getting better. She was given a unit of PRBC transfusion, her hemoglobin is also better today. OBJECTIVE: VITAL SIGNS: Temperature is 97.1 degrees Fahrenheit, blood pressure is 132/53, pulse is 61, respiratory rate 18, saturating 99% on room air. INTAKE AND OUTPUT: Urine output recorded as 400 ml. Ultrafiltration with hemodialysis was 1 liter yesterday. Weight on the bed scale is 63.2 kg. GENERAL: Patient is awake, alert and oriented x3, sitting up in bed in no apparent distress. HEAD AND NECK: Extraocular muscles intact. Pupils equally round and reactive to light. Mucous membranes are moist. Neck is supple. There is no JVD. CARDIOVASCULAR: S1 and S2, regular rate. No edema of the bilateral lower extremities. RESPIRATORY: Clear to auscultation bilaterally. Bilateral equal air entry. No rales or rhonchi. ABDOMEN: Soft, positive bowel sounds, nontender. No organomegaly. MUSCULOSKELETAL: No clubbing or cyanosis. Pulses are 2+. [employer]AT[employer] SUPERVISOR: No focal deficit. Power is 5/5 in all extremities. LABORATORY DATA: CBC showed a WBC of 6.3, hemoglobin 11, platelets 301,000. BMP showed a sodium of 138, potassium 3.8, chloride 103, bicarbonate 29, BUN 14, creatinine is 3.5. CURRENT INPATIENT MEDICATIONS: The patient's medications were all reviewed by myself. No significant change in the medication today. ASSESSMENT AND PLAN: 1. Endstage renal disease. Patient was dialyzed yesterday. Volume status is optimal. Next hemodialysis will be done tomorrow morning. 2. Anemia with endstage renal disease. Coumadin was held. She was given 1 unit of PRBC transfusion. She is also on Aranesp and Venofer. Hemoglobin has nicely improved. Continue Protonix. 3. Atrial fibrillation, heart rate is controlled with Propafenone and Coreg. Anticoagulation is on hold because INR is still 4.4 today.
--- NOTE | 2020-12-24 12:38 | IPNPDOC ---
Subjective Date Seen The patient was seen on 12/24/20. Subjective Chief Complaint/HPI Mrs. Santillan is a 70-year-old female with end-stage renal disease on dialysis M,W,F who is here for having frequent falls. This morning, patient denies any chest pain or dyspnea. I examined left leg wound, does not appear to have cellulitis. Objective Physical Examination General Exam: Positive: Alert, Cooperative Eye Exam: Positive: EOMI; Negative: Sclera icteric ENT Exam: Positive: Atraumatic Neck Exam: Positive: Supple Chest Exam: Positive: Clear to auscultation; Negative: Rales, Rhonchi, Wheezing Heart Exam: Positive: Rate Normal, Regular Rhythm Abdomen Exam: Positive: Normal bowel sounds, Soft; Negative: Tenderness Skin Exam: Positive: Breakdown (left leg wound) Neuro Exam: Positive: Normal Speech, Cranial Nerves 3-12 NL Psych Exam: Positive: Mental status NL, Mood NL Assessment /Plan Assessment Mrs. Santillan is a 70-year-old female with end-stage renal disease on dialysis M,W,F who is here for having frequent falls. Patient's daughter is concerned because her mother lives alone and that she's become more forgetful. Patient will be assessed by physical therapy. Otherwise, on admission patient was anemic. Responded well to blood transfusion. INR still elevated, continue to hold warfarin Plan/VTE VTE Prophylaxis Ordered?: Yes Plan 1. Weakness and frequent falls Most likely secondary to deconditioning and debility Physical therapy to work with patient when more stable Patient lives alone and daughter is concerned. Patient may need placement 2. Anemia Suspecting anemia of chronic disease Received 1 unit of blood at dialysis Responded well to blood transfusion 3. Coagulopathy INR on admission 4.57 INR continues to be elevated today Held warfarin Monitor INR 4. Atrial fibrillation Continue flecainide Holding warfarin as supratherapeutic 5. End-stage renal disease Nephrology following, recommendations appreciated Dialysis Monday 6. Hypertension On Coreg 7. DVT prophylaxis On warfarin, but currently hypercoagulable. Continue to monitor INRs Disposition: Pending improvement in INR and physical therapy recommendations VS, I&O, 24H, Fishbone Vital Signs/I&O Vital Signs Date Time Temp Pulse Resp B/P (MAP) Pulse Ox O2 Delivery O2 Flow Rate FiO2 12/24/20 10:04 63 130/50 12/24/20 06:00 97.1 18 99 Room Air I&O- Last 24 Hours up to 6 AM 12/24/20 06:00 Intake Total 1250 ml Output Total 1630 ml Balance -380 ml Laboratory Data 24H LABS Laboratory Tests 2 12/24/20 08:05: Nucleated Red Blood Cells % (auto) 0.0, Anion Gap 6L, Glomerular Filtration Rate 13.5L, Calcium Level 10.3H 12/24/20 08:06: Prothrombin Time 43.3H, Prothromb Time International Ratio 4.44 CBC/BMP Laboratory Tests 12/24/20 08:05 Microbiology Microbiology 12/22/20 Respiratory Virus Panel (PCR) ([facility]) - Final, Complete LEE PETERSEN DO Dec 24, 2020 12:38
[2020-12-24 13:25] VITALS: BP 129/50
[2020-12-24 22:00] VITALS: BP 150/60
[2020-12-25 06:00] VITALS: BP_SYST 141; BP_SYST 149; BP_DIAS 61
[2020-12-25] MEDS: buPROPion **XL** TABLET 150MG (WELLBUTRIN XL) PO SCH (06:05)
[2020-12-25] MEDS: DOCUSATE SODIUM 100MG CAPSULE PO SCH (06:05)
[2020-12-25] MEDS: PANTOPRAZOLE 40MG TAB (PROTONIX) PO SCH (06:05)
[2020-12-25] MEDS: CitaloPRAM (CeleXA) 20 MG TAB PO SCH (06:06)
[2020-12-25] MEDS: CARVedilol 12.5 MG TAB PO SCH ×2 (06:06→21:18)
[2020-12-25] MEDS: MEGESTROL 40 MG TAB PO SCH ×3 (06:06→17:45)
[2020-12-25] MEDS ORDERED: LIDOCAINE 1% SDV 5ML VIAL SC PRN (07:00)
[2020-12-25] MEDS: PROPAFENONE 150 MG TAB PO SCH ×2 (08:01→21:18)
[2020-12-25] MEDS: MUPIROCIN 2% OINT 22 GM TUBE EXT SCH ×2 (08:01→21:18)
[2020-12-25 09:21] LABS: HEMATOCRIT 29.5 % (36.0-47.0); HEMOGLOBIN 9.6 g/dl (12.0-15.5); MEAN CORPUSCULAR HEMOGLOBIN 30.9 pg (27.0-33.0); MEAN CORPUSCULAR HGB CONC 32.5 g/dl (32.0-36.5); MEAN CORPUSCULAR VOLUME 94.9 fl (80.0-96.0); PLATELET COUNT, AUTOMATED 288 10^3/uL (150-450); RED BLOOD COUNT 3.11 10^6/uL (4.00-5.40); WHITE BLOOD COUNT 5.8 10^3/uL (4.0-10.0)
[2020-12-25 09:52] LABS: CALCIUM LEVEL 9.6 MG/DL (8.8-10.2); CREATININE FOR GFR 4.73 MG/DL (0.55-1.30); GLOMERULAR FILTRATION RATE 9.7 (>39); POTASSIUM SERUM 3.9 MEQ/L (3.5-5.1)
[2020-12-25 10:03] LABS: INR 4.28; PROTHROMBIN TIME 42.1 SECONDS (12.5-14.3)
[2020-12-25] MEDS: IRON SUCROSE 100MG 5ML VIAL (J1756 PER 1MG) IV SCH (11:34)
[2020-12-25] MEDS ORDERED: PHYTONADIONE 5 MG TAB PO ONE (11:40)
--- NOTE | 2020-12-25 12:39 | IPNPDOC ---
Subjective Date Seen The patient was seen on 12/25/20. Subjective Chief Complaint/HPI Mrs. Santillan is a 70-year-old female with end-stage renal disease on dialysis M,W,F who is here for having frequent falls. She is seen this morning prior to undergoing dialysis. She is finishing up breakfast. Denies any chest pain or dyspnea. Objective Physical Examination General Exam: Positive: Alert, Cooperative Eye Exam: Positive: EOMI; Negative: Sclera icteric ENT Exam: Positive: Atraumatic Neck Exam: Positive: Supple Chest Exam: Positive: Clear to auscultation; Negative: Rales, Rhonchi, Wheezing Heart Exam: Positive: Rate Normal, Regular Rhythm Abdomen Exam: Positive: Normal bowel sounds, Soft; Negative: Tenderness Skin Exam: Positive: Breakdown (left leg wound) Neuro Exam: Positive: Normal Speech, Cranial Nerves 3-12 NL Psych Exam: Positive: Mental status NL, Mood NL Assessment /Plan Assessment Mrs. Santillan is a 70-year-old female with end-stage renal disease on dialysis M,W,F who is here for having frequent falls. Patient's daughter is concerned because her mother lives alone and that she's become more forgetful. Pending assessment by physical therapy. Otherwise, on admission patient was anemic. Responded well to blood transfusion. INR still elevated, continue to hold warfarin Plan/VTE VTE Prophylaxis Ordered?: Yes Plan 1. Weakness and frequent falls Most likely secondary to deconditioning and debility Physical therapy to work with patient when more stable Patient lives alone and daughter is concerned. Patient may need placement 2. Anemia Suspecting anemia of chronic disease Received 1 unit of blood at dialysis Responded well to blood transfusion 3. Coagulopathy INR on admission 4.57 INR continues to be elevated today Held warfarin Monitor INR INR trending down but still elevated 4. Atrial fibrillation Continue flecainide Holding warfarin as supratherapeutic 5. End-stage renal disease Nephrology following, recommendations appreciated Dialysis Monday 6. Hypertension On Coreg 7. DVT prophylaxis On warfarin, but currently hypercoagulable. Continue to monitor INRs Disposition: Pending improvement in INR and physical therapy recommendations. INR is slowly trending down VS, I&O, 24H, Fishbone Vital Signs/I&O Vital Signs Date Time Temp Pulse Resp B/P (MAP) Pulse Ox O2 Delivery O2 Flow Rate FiO2 12/25/20 06:06 66 149/61 12/25/20 06:00 97.5 20 95 Room Air I&O- Last 24 Hours up to 6 AM 12/25/20 06:00 Intake Total 800 ml Output Total 1050 ml Balance -250 ml Laboratory Data 24H LABS Laboratory Tests 2 12/25/20 08:55: Nucleated Red Blood Cells % (auto) 0.3H, Prothrombin Time 42.1H, Prothromb Time International Ratio 4.28, Anion Gap 6L, Glomerular Filtration Rate 9.7L, Calcium Level 9.6 CBC/BMP Laboratory Tests 12/25/20 08:55 Microbiology Microbiology 12/22/20 Respiratory Virus Panel (PCR) ([facility]) - Final, Complete LEE PETERSEN DO Dec 25, 2020 12:39
[2020-12-25 14:00] VITALS: BP 162/73
--- NOTE | 2020-12-25 14:16 | IPN ---
PROGRESS NOTE DATE: 12/25/2020 SUBJECTIVE: Patient was seen and examined at the bedside today morning during hemodialysis procedure. She is tolerating hemodialysis procedure well. She denies any active complaints at this time. OBJECTIVE: VITAL SIGNS: Temperature 97.5 degrees Fahrenheit, blood pressure 149/61, pulse 66, respiratory rate 20, saturating 95% on room air. INTAKE AND OUTPUT: Urine output recorded is 600 mL. Weight in the bed scale is 63.8 kg. PHYSICAL EXAMINATION: GENERAL: Patient is awake, alert, oriented times three, laying in bed getting hemodialysis done. HEAD AND NECK EXAM: Extraocular muscles intact. Pupils equally round and reactive to light. Mucous membranes are moist. Neck is supple. There is no jugular venous distention (JVD). CARDIOVASCULAR: S1, S2. Regular rate. No edema of the bilateral lower extremities. RESPIRATORY: Chest is clear to auscultation bilaterally. Bilateral equal air entry. No rales or rhonchi. ABDOMEN: Soft. Positive bowel sounds. Nontender. No organomegaly MUSCULOSKELETAL: Trace edema of the lower extremities. They are tender to palpation. CENTRAL NERVOUS SYSTEM (BUTTON RECLAIMER): No focal deficits. Power is 5/5 in all extremities. LABORATORY REVIEW: CBC showed WBC 5.8, hemoglobin 9.6, platelets 288. INR is 4.2 today. BMP showed sodium 136, potassium 3.9, chloride 105, bicarbonate 26, BUN 22, creatinine 4.7. CURRENT INPATIENT MEDICATIONS: Patient's medications were all reviewed by myself. No significant change in the medications today as compared with yesterday. ASSESSMENT AND PLAN: 1. End-stage renal disease. Patient is being dialyzed according to her regular dialysis schedule. Ultrafiltration goal is around 1 liter as tolerated by her blood pressure. 2. Anemia in end-stage renal disease. Continue Aranesp and Venofer. She is status post packed red blood cells transfusion. Anticoagulation is on hold. 3. Atrial fibrillation. Continue Coreg and Propafenone. INR is staying above 4. Patient will be given a dose of vitamin K 4. Hypertension. Blood pressure is controlled with optimization of volume status and use of Coreg.
[2020-12-25 15:11] LABS: SOLUBLE TRANSFERRIN RECEPTOR 23.3 nmol/L (12.2-27.3)
[2020-12-25 22:00] VITALS: BP 161/77
[2020-12-26] MEDS: MEGESTROL 40 MG TAB PO SCH ×5 (00:14→17:24)
[2020-12-26 06:00] VITALS: BP 151/54
[2020-12-26 06:34] LABS: HEMATOCRIT 33.6 % (36.0-47.0); HEMOGLOBIN 10.7 g/dl (12.0-15.5); MEAN CORPUSCULAR HEMOGLOBIN 30.6 pg (27.0-33.0); MEAN CORPUSCULAR HGB CONC 31.8 g/dl (32.0-36.5); PLATELET COUNT, AUTOMATED 304 10^3/uL (150-450); WHITE BLOOD COUNT 6.4 10^3/uL (4.0-10.0)
[2020-12-26 06:37] LABS: INR 1.84; PROTHROMBIN TIME 21.7 SECONDS (12.5-14.3)
[2020-12-26 06:52] LABS: CALCIUM LEVEL 10.1 MG/DL (8.8-10.2); CREATININE FOR GFR 3.4 MG/DL (0.55-1.30); GLOMERULAR FILTRATION RATE 14.2 (>39); POTASSIUM SERUM 3.9 MEQ/L (3.5-5.1)
[2020-12-26] MEDS ORDERED: TAMSULOSIN 0.4 MG CAP PO SCH (09:00)
[2020-12-26] MEDS: DOCUSATE SODIUM 100MG CAPSULE PO SCH (09:09)
[2020-12-26] MEDS: TAMSULOSIN 0.4 MG CAP PO SCH (09:09)
[2020-12-26] MEDS: PANTOPRAZOLE 40MG TAB (PROTONIX) PO SCH (09:09)
[2020-12-26] MEDS: CitaloPRAM (CeleXA) 20 MG TAB PO SCH (09:09)
[2020-12-26] MEDS: buPROPion **XL** TABLET 150MG (WELLBUTRIN XL) PO SCH (09:09)
[2020-12-26] MEDS: PROPAFENONE 150 MG TAB PO SCH ×2 (09:09→21:52)
[2020-12-26] MEDS: CARVedilol 12.5 MG TAB PO SCH ×2 (09:10→21:53)
[2020-12-26] MEDS: MUPIROCIN 2% OINT 22 GM TUBE EXT SCH ×2 (09:10→21:53)
--- NOTE | 2020-12-26 13:29 | IPN ---
NEPHROLOGY PROGRESS NOTE DATE: 12/26/2020 SUBJECTIVE: The patient was seen and examined this morning at the bedside. I found her to be somewhat altered. I see she has also been requiring intermittent straight catheterization for urinary retention. She was dialyzed yesterday with one liter of fluid removed and she tolerated her treatment without issue, but she was noted to be confused during her treatment by the dialysis nurse. And I see she had a very low grade temperature of 100.1. OBJECTIVE: VITAL SIGNS: Temperature 100.1, pulse 63, respiratory rate 18, blood pressure 151/54, saturating 96% on room air. INTAKE AND OUTPUT: Intake yesterday was not fully recorded. Urine output was 1.7 liters along with a post void residual of 870 and hemodialysis removed one liter. Weight in the bed scale today is very different from other days and most likely inaccurate. PHYSICAL EXAMINATION: GENERAL APPEARANCE: The patient is seen sitting out of bed to the chair, elderly female, awake, alert, oriented to place and to person and cooperative with physical exam. HEENT: The extraocular muscles are intact. Pupils are round and reactive to light. The tongue is moist. NECK: Supple. Jugular veins are not elevated. HEART: Regular, S1, S2. There is absolutely no peripheral edema. RESPIRATORY: Clear lungs to auscultation. No crackles or rales. ABDOMEN: Soft and nontender. There are bowel sounds. MUSCULOSKELETAL: Significant lean muscle wasting. NEUROLOGICAL: The patient is oriented to place and to person but tells me that the year is [address] Banuelos is the president. LABORATORY STUDIES: Today's laboratory studies show white count 6.4, hemoglobin 10.7, platelets 304, sodium 137, potassium 3.9, bicarbonate 29, calcium 10.1. Stool occult blood was negative. CURRENT INPATIENT MEDICATIONS: The patient's medications were reviewed by myself. She continues on Tylenol p.r.n., Mylanta p.r.n., Wellbutrin XL 300 mg p.o. daily, Carvedilol 12.5 mg p.o. twice daily, Celexa 20 mg p.o. daily, Aranesp 200 mcg with dialysis, Venofer with dialysis, Megace which the patient has occasionally been refusing, Zofran p.r.n., Protonix 40 mg p.o. daily, Propafenone 300 mg p.o. twice daily, Flomax 0.4 mg p.o. daily and she is going to receive a dose of Coumadin tonight. PROBLEMS: 1. End-stage renal disease, on hemodialysis on a Monday, Monday, Monday schedule - The patient's volume status and electrolytes are optimized. Her next dialysis will be on Monday and we are removing around one liter with each treatment and no change is being made to current dialysis prescription. 2. Anemia of end-stage renal disease - The patient continues on Aranesp and Venofer with her treatments. Her hemoglobin has come up to 10.7 which is optimal, and she was also transfused one unit packed red blood cells on this admission. 3. Altered mental status - The patient was confused at the time of my visit today and dialysis nurse also reported that the patient was confused during her treatment yesterday. I do not see any interfering medications on her list. I do note that she has had a very low grade temperature of 100.1. Will defer further evaluation to the Primary Service, and I will get an ammonia level. 4. Atrial fibrillation - The patient is rate controlled with beta patrick and also on Propafenone. Her INR is subtherapeutic today and I see Coumadin is being resumed. 5. Hypertension - blood pressures are well controlled and no change is being made to the current antihypertensive regimen.
[2020-12-26 14:00] VITALS: BP 134/52
[2020-12-26] MEDS ORDERED: WARFARIN SOD 2.5MG TAB PO ONE (17:00)
--- NOTE | 2020-12-26 17:33 | IPNPDOC ---
Subjective Date Seen The patient was seen on 12/26/20. Subjective Chief Complaint/HPI Mrs. Santillan is a 70-year-old female with end-stage renal disease on dialysis M,W,F who is here for having frequent falls. This morning, she denies any chest pain or dyspnea. INR decreased. Reached out to PT for evaluation. Recommending OT eval and suspecting patient will need subacute. Objective Physical Examination General Exam: Positive: Alert, Cooperative Eye Exam: Positive: EOMI; Negative: Sclera icteric ENT Exam: Positive: Atraumatic Neck Exam: Positive: Supple Chest Exam: Positive: Clear to auscultation; Negative: Rales, Rhonchi, Wheezing Heart Exam: Positive: Rate Normal, Regular Rhythm Abdomen Exam: Positive: Normal bowel sounds, Soft; Negative: Tenderness Skin Exam: Positive: Breakdown (left leg wound) Neuro Exam: Positive: Normal Speech, Cranial Nerves 3-12 NL Psych Exam: Positive: Mental status NL, Mood NL Assessment /Plan Assessment Mrs. Santillan is a 70-year-old female with end-stage renal disease on dialysis M,W,F who is here for having frequent falls. Patient's daughter is concerned because her mother lives alone and that she's become more forgetful. Pending assessment by physical therapy. Otherwise, on admission patient was anemic. Responded well to blood transfusion. H&H remained stable. INR dropped to 1.84. PT evaluated patient. Recommended OT and suspecting need for subacute. Plan/VTE VTE Prophylaxis Ordered?: Yes Plan 1. Weakness and frequent falls Most likely secondary to deconditioning and debility Physical therapy recommending OT. Suspecting patient will need subacute Patient lives alone and daughter is concerned. Patient may need placement 2. Anemia Suspecting anemia of chronic disease Received 1 unit of blood at dialysis Responded well to blood transfusion -H&H remain stable 3. Coagulopathy INR on admission 4.57 INR dropped to 1.8 in response to Vit K Monitor INR Will give Coumadin today 4. Atrial fibrillation Continue flecainide On Coumadin 5. End-stage renal disease Nephrology following, recommendations appreciated Dialysis Monday 6. Hypertension On Coreg 7. DVT prophylaxis On warfarin. Continue to monitor INRs Disposition: Pending OT. Most likely will need subacute VS, I&O, 24H, Fishbone Vital Signs/I&O Vital Signs Date Time Temp Pulse Resp B/P (MAP) Pulse Ox O2 Delivery O2 Flow Rate FiO2 12/26/20 14:00 97.5 55 16 134/52 (79) 94 Room Air I&O- Last 24 Hours up to 6 AM 12/26/20 06:00 Intake Total 400 ml Output Total 3640 ml Balance -3240 ml Laboratory Data 24H LABS Laboratory Tests 2 12/26/20 05:49: Nucleated Red Blood Cells % (auto) 0.3H, Prothrombin Time 21.7H, Prothromb Time International Ratio 1.84, Anion Gap 8, Glomerular Filtration Rate 14.2L, Calcium Level 10.1 CBC/BMP Laboratory Tests 12/26/20 05:49 Microbiology Microbiology 12/25/20 Stool Occult Blood ([facility]) - Final, Complete 12/22/20 Respiratory Virus Panel (PCR) ([facility]) - Final, Complete LEE PETERSEN DO Dec 26, 2020 17:33
[2020-12-26 22:00] VITALS: BP 132/49
[2020-12-27] MEDS: MEGESTROL 40 MG TAB PO SCH ×4 (05:41→17:55)
[2020-12-27 06:00] VITALS: BP 127/49
[2020-12-27 07:09] LABS: HEMATOCRIT 33.4 % (36.0-47.0); HEMOGLOBIN 10.4 g/dl (12.0-15.5); MEAN CORPUSCULAR HEMOGLOBIN 30.1 pg (27.0-33.0); MEAN CORPUSCULAR HGB CONC 31.1 g/dl (32.0-36.5); MEAN CORPUSCULAR VOLUME 96.5 fl (80.0-96.0); PLATELET COUNT, AUTOMATED 312 10^3/uL (150-450); RED BLOOD COUNT 3.46 10^6/uL (4.00-5.40); WHITE BLOOD COUNT 5.7 10^3/uL (4.0-10.0)
[2020-12-27 07:20] LABS: INR 1.41; PROTHROMBIN TIME 17.6 SECONDS (12.5-14.3)
[2020-12-27 07:36] LABS: CALCIUM LEVEL 9.9 MG/DL (8.8-10.2); CREATININE FOR GFR 5.31 MG/DL (0.55-1.30); GLOMERULAR FILTRATION RATE 8.5 (>39); POTASSIUM SERUM 3.8 MEQ/L (3.5-5.1)
[2020-12-27] MEDS: CARVedilol 12.5 MG TAB PO SCH ×2 (09:00→21:02)
[2020-12-27] MEDS: CitaloPRAM (CeleXA) 20 MG TAB PO SCH (09:07)
[2020-12-27] MEDS: buPROPion **XL** TABLET 150MG (WELLBUTRIN XL) PO SCH (09:07)
[2020-12-27] MEDS: DOCUSATE SODIUM 100MG CAPSULE PO SCH (09:08)
[2020-12-27] MEDS: PANTOPRAZOLE 40MG TAB (PROTONIX) PO SCH (09:08)
[2020-12-27] MEDS: TAMSULOSIN 0.4 MG CAP PO SCH (09:08)
[2020-12-27] MEDS: PROPAFENONE 150 MG TAB PO SCH ×2 (09:14→21:01)
[2020-12-27] MEDS: MUPIROCIN 2% OINT 22 GM TUBE EXT SCH (12:03)
[2020-12-27 13:18] VITALS: BP 140/58
--- NOTE | 2020-12-27 14:56 | IPNPDOC ---
Subjective Date Seen The patient was seen on 12/27/20. Subjective Chief Complaint/HPI Mrs. Santillan is a 70-year-old female with end-stage renal disease on dialysis M,W,F who is here for having frequent falls. She was seen in the morning. She denies any chest pain or dyspnea. The son requested for update. Son expresses that prior to Celexa, she was not confused. It was only afterwards. Will D/C Celexa. Otherwise, she has been having acute urinary retention. UA negative for UTI and no leukocytosis. Added on tamsulosin. Objective Physical Examination General Exam: Positive: Alert, Cooperative Eye Exam: Positive: EOMI; Negative: Sclera icteric ENT Exam: Positive: Atraumatic Neck Exam: Positive: Supple Chest Exam: Positive: Clear to auscultation; Negative: Rales, Rhonchi, Wheezing Heart Exam: Positive: Rate Normal, Regular Rhythm Abdomen Exam: Positive: Normal bowel sounds, Soft; Negative: Tenderness Skin Exam: Positive: Breakdown (left leg wound) Neuro Exam: Positive: Normal Speech, Cranial Nerves 3-12 NL Psych Exam: Positive: Mental status NL, Mood NL Assessment /Plan Assessment Mrs. Santillan is a 70-year-old female with end-stage renal disease on dialysis M,W,F who is here for having frequent falls. Patient's daughter is concerned because her mother lives alone and that she's become more forgetful. Pending assessment by physical therapy. Otherwise, on admission patient was anemic. Responded well to blood transfusion. H&H remained stable. Monitor INR as she is on warfarin. PT evaluated patient. Recommended OT and suspecting need for subacute. Otherwise, question what is her baseline. Son reports that she was less confused prior to Celexa. Will discontinue Celexa. She has had low grade fever at 100.1, but no leukocytosis. UA is negative for nitrites or leukocytes. CXR negative for pneumonia. She does have some urinary retention which may promote AMS in elderly. She also seems to be better in the morning and progressively worsens throughout the day suggestive of sundowning. Supportive care at this time. Plan/VTE VTE Prophylaxis Ordered?: Yes Plan 1. Weakness and frequent falls Most likely secondary to deconditioning and debility Physical therapy recommending OT. Suspecting patient will need subacute Patient lives alone and daughter is concerned. Patient may need placement 2. Anemia Suspecting anemia of chronic disease Received 1 unit of blood at dialysis Responded well to blood transfusion -H&H remain stable 3. Coagulopathy INR on admission 4.57 INR dropped to 1.8 in response to Vit K Monitor INR Will give Coumadin today 4. Atrial fibrillation Continue flecainide On Coumadin 5. End-stage renal disease Nephrology following, recommendations appreciated Dialysis Monday 6. Hypertension On Coreg 7. Urinary retention -Added tamsulosin -Bladder scans with PRN strait cath 8. DVT prophylaxis On warfarin. Continue to monitor INRs Disposition: Pending OT. Most likely will need subacute VS, I&O, 24H, Fishbone Vital Signs/I&O Vital Signs Date Time Temp Pulse Resp B/P (MAP) Pulse Ox O2 Delivery O2 Flow Rate FiO2 12/27/20 13:18 97.2 64 20 140/58 (85) 97 Room Air I&O- Last 24 Hours up to 6 AM 12/27/20 06:00 Intake Total 450 ml Output Total 1275 ml Balance -825 ml Laboratory Data 24H LABS Laboratory Tests 2 12/27/20 06:56: Nucleated Red Blood Cells % (auto) 0.0, Prothrombin Time 17.6H, Prothromb Time International Ratio 1.41, Anion Gap 10, Glomerular Filtration Rate 8.5L, Calcium Level 9.9 CBC/BMP Laboratory Tests 12/27/20 06:56 Microbiology Microbiology 12/25/20 Stool Occult Blood ([facility]) - Final, Complete 12/22/20 Respiratory Virus Panel (PCR) ([facility]) - Final, Complete LEE PETERSEN DO Dec 27, 2020 14:56
--- NOTE | 2020-12-27 15:21 | IPN ---
NEPHROLOGY PROGRESS NOTE DATE: 12/27/2020 SUBJECTIVE: Lyric was seen and examined this morning at the bedside. She continues to be confused. I am not sure if she has worsening dementia or if she is altered. Again she tells me that the year is 1949 and today she tells me that the President is Sagar. She otherwise did recognize me by name and was cooperative with physical exam and denied any complaints. She is due for dialysis tomorrow. She remains afebrile. PHYSICAL EXAMINATION: Temperature 99.0, pulse 60, respiratory rate18, blood pressure 127/49, saturation 98% on room air. Urine output yesterday was 1.1 liter. Postvoid residual was 725 mL. Weight in the bed scale today is not recorded. GENERAL: Patient is seen lying flat in bed, elderly and frail female with significant lean muscle wasting, awake, alert, oriented to person and to place, but not to year or situation. HEAD: There is some bitemporal wasting. Extraocular muscles are intact. Tongue is moist. NECK: Supple. Jugular veins are not elevated. HEART SOUNDS: Regular S1, S2. There is absolutely no peripheral edema. LUNGS: Clear to auscultation. No crackle or rale. ABDOMEN: Soft and nontender. There are bowel sounds. EXTREMITIES: Show significant lean muscle wasting. There is a fistula in the right forearm which is patient with thrill and bruit. NEUROLOGIC: Patient is able to tell me her name and date of , her daughter's name and her location, but she tells me that the year is 1950 and the President is Mr. Keith. LABORATORY STUDIES: White count today 5.7, hemoglobin 10.4, platelets 312. Sodium 136, potassium 3.8, bicarbonate 26. INPATIENT MEDICATIONS: Reviewed by myself and no changes except Flomax was started yesterday and Coumadin was adjusted by the primary service to 5 mg. Remainder of her medications are unchanged as compared to yesterday. PROBLEMS: 1. End-stage renal disease on hemodialysis on a Monday, Monday, Monday schedule. Patient will be dialyzed tomorrow. Her volume status and electrolytes are optimized. Her fistula is in good use. No changes being made to the current prescription. We are removing around 1 liter with each treatment. 2. Anemia of end-stage renal disease. She continues on Aranesp and Venofer with her dialysis treatments and her blood count is optimal with her hemoglobin in the 10s. 3. Hypertension. Blood pressures are well-controlled and no change is being made to the current regimen. 4. Dementia versus altered mental status. The patient is definitely confused. She has told me yesterday and today that the year is 1949 and that the President is Mr. Keith. CT head on admission noted. No interfering medications noted. No signs of infection. Ammonia level pending. Patient is having recurrent falls at home, tells me that she wants to move in with her daughter and no longer live alone. I do not feel that she is suitable to live alone and she is most likely going to need rehabilitation as well. 5. Atrial fibrillation. INR is subtherapeutic. Coumadin was adjusted by the primary team. She is rate controlled. She continues on carvedilol and propafenone. 6. Urinary retention. Patient continues to have elevated postvoid residuals. She was started on Flomax, but she may end up requiring indwelling Lee catheter.
[2020-12-27] MEDS ORDERED: WARFARIN SOD 5MG TAB PO ONE (17:00)
[2020-12-27 22:00] VITALS: BP 144/57
[2020-12-28] MEDS: MUPIROCIN 2% OINT 22 GM TUBE EXT SCH ×2 (00:46→05:53)
[2020-12-28] MEDS: MEGESTROL 40 MG TAB PO SCH ×3 (00:46→12:58)
[2020-12-28] MEDS: PROPAFENONE 150 MG TAB PO SCH (05:51)
[2020-12-28] MEDS: PANTOPRAZOLE 40MG TAB (PROTONIX) PO SCH (05:51)
[2020-12-28] MEDS: buPROPion **XL** TABLET 150MG (WELLBUTRIN XL) PO SCH (05:52)
[2020-12-28] MEDS: TAMSULOSIN 0.4 MG CAP PO SCH (05:52)
[2020-12-28] MEDS: DOCUSATE SODIUM 100MG CAPSULE PO SCH (05:52)
[2020-12-28 05:53] VITALS: BP 115/66
[2020-12-28] MEDS: CARVedilol 12.5 MG TAB PO SCH (05:53)
[2020-12-28 06:00] VITALS: BP 115/66
[2020-12-28 06:22] LABS: HEMATOCRIT 33.3 % (36.0-47.0); HEMOGLOBIN 10.6 g/dl (12.0-15.5); MEAN CORPUSCULAR HEMOGLOBIN 30.7 pg (27.0-33.0); MEAN CORPUSCULAR HGB CONC 31.8 g/dl (32.0-36.5); MEAN CORPUSCULAR VOLUME 96.5 fl (80.0-96.0); PLATELET COUNT, AUTOMATED 333 10^3/uL (150-450); RED BLOOD COUNT 3.45 10^6/uL (4.00-5.40); WHITE BLOOD COUNT 6.1 10^3/uL (4.0-10.0)
[2020-12-28 06:30] LABS: INR 1.51; PROTHROMBIN TIME 18.5 SECONDS (12.5-14.3)
[2020-12-28 06:47] LABS: CREATININE FOR GFR 6.06 MG/DL (0.55-1.30); GLOMERULAR FILTRATION RATE 7.3 (>39); POTASSIUM SERUM 3.9 MEQ/L (3.5-5.1)
[2020-12-28] MEDS ORDERED: SODIUM CHLORIDE 0.9% 1000ML IV PRN (07:45)
[2020-12-28] MEDS ORDERED: LIDOCAINE 1% SDV 5ML VIAL SC PRN (07:45)
[2020-12-28] MEDS: IRON SUCROSE 100MG 5ML VIAL (J1756 PER 1MG) IV SCH (09:18)
[2020-12-28 13:00] VITALS: BP 140/68
[2020-12-28] MEDS ORDERED: FLOM0.4C39 PO (14:11)
[2020-12-28] MEDS ORDERED: MOM30SS2 PO (14:11)
[2020-12-28 14:15] VITALS: BP 107/59
[2020-12-28] MEDS ORDERED: MIRA3350 PO (14:18)
[2020-12-28] MEDS ORDERED: WARFARIN SOD 5MG TAB PO ONE (17:00)
--- NOTE | 2020-12-28 22:59 | DS.PDOC ---
Discharge Summary General Date of Admission Dec 22, 2020 at 22:17 Date of Discharge December 28, 2020 Discharge Summary PROCEDURES PERFORMED DURING STAY: None ADMITTING DIAGNOSES: 1. Weakness and falls 2. Macrocytic anemia 3. Essential tremors 4. Atrial fibrillation 5. End-stage renal disease on dialysis MWF 6. Hypertension DISCHARGE DIAGNOSES: 1. Weakness and falls 2. Macrocytic anemia 3. Essential tremors 4. Atrial fibrillation 5. End-stage renal disease on dialysis MWF 6. Hypertension 7. Hypercoagulable state 8. Urinary retention COMPLICATIONS/CHIEF COMPLAINT: Weakness,Microcytic Anemia. HISTORY OF PRESENT ILLNESS: Mrs. Santillan is a 70 year old female with end-stage renal disease on dialysis MWF who presents to the ED for weakness and multiple falls. Patient is a poor historian is a poor historian. Daughter is concerned about patient's forgetfulness and weakness since she lives alone. She last had a fall about 2 weeks ago. Denies any chest pain, dizziness, blurry vision, tinnitus, or vertigo. She also denies any loss of consciousness after falls. HOSPITAL COURSE: Physical therapy was ordered but due to patient's INR of 4.57 days decided to wait to evaluate the patient. INR did not improve the next 2 days, so she was given vitamin K. INR improved to 1.84 and physical therapy evaluated patient. Recommended the patient have OT and ARU screen. Son called concerned about patient's confusion. He noticed that prior to Celexa she was not confused. Confusion started after Celexa. Celexa was discontinued. She hasn't had a fever and no leukocytosis. UA was not suspicious for UTI. Unlikely infectious source of altered mental status. Ammonia was checked which was normal. She did have urinary retention of which she required bladder scans and straight caths. Added tamsulosin for acute urinary retention. Otherwise added bowel care as she was constipated. Her confusion may be multifactorial. It may be part of her dementia, but also may be due to Celexa, urinary retention, and constipation. We have discontinued Celexa. Ordered bladder scans and added tamsulosin. Also added laxatives for constipation. Patient will need frequent reorientation, activity, and good sleep. Otherwise, ARU was interested in taking the patient today, and she was discharged to ARU. DISCHARGE MEDICATIONS: Please see below. ALLERGIES: Please see below. PHYSICAL EXAMINATION ON DISCHARGE: VITAL SIGNS: Please see below. GENERAL: Comfortable, in no apparent distress. HEENT: Head normocephalic/atraumatic, EOMI, sclera clear. NECK: Supple RESPIRATORY: Lungs clear to auscultation bilaterally, no rales, wheeze or rhonchi. CARDIOVASCULAR: Regular rate and rhythm. ABDOMEN: Soft, nontender, no guarding or rebound tenderness. Normal bowel sounds. MUSCLE SKELETAL: Muscle strength 5/5 in all extremities. NEUROLOGICAL: CN 312 grossly intact PSYCHOLOGICAL: Normal mood and affect LABORATORY DATA: Please see below. IMAGING: Radiology interpretation CT head 1. No acute intracranial abnormality. 2. Atrophy and chronic deep white matter ischemic changes. Chest x-ray No active disease PROGNOSIS: Good ACTIVITY: As tolerated DIET: Renal diet DISCHARGE PLAN: DISPOSITION: 62 D/T Rehab Facility. DISCHARGE INSTRUCTIONS: 1. Continue monitoring INRs and adjust warfarin as needed 2. Bladder scans every 6 hours and straight cath as needed for volumes greater than 250 mL's 3. Ensure BMs daily 4. Sleep hygiene and activity 5. Continue dialysis Monday, Monday, and Monday DISCHARGE CONDITION: Stable. Total time spent on discharge planning, discharge summary, medication reconciliation: 55 minutes Vital Signs/I&Os Vital Signs Date Time Temp Pulse Resp B/P (MAP) Pulse Ox O2 Delivery O2 Flow Rate FiO2 12/28/20 14:15 97.0 65 20 107/59 (75) 98 Room Air I&O- Last 24 Hours up to 6 AM 12/28/20 06:00 Intake Total 880 ml Output Total 770 ml Balance 110 ml Laboratory Data Labs 24H Laboratory Tests 2 12/28/20 05:54: Nucleated Red Blood Cells % (auto) 0.0, Prothrombin Time 18.5H, Prothromb Time International Ratio 1.51, Anion Gap 10, Glomerular Filtration Rate 7.3L, Calcium Level 10.0, Ammonia 11 CBC/BMP Laboratory Tests 12/28/20 05:54 Microbiology Microbiology 12/25/20 Stool Occult Blood ([facility]) - Final, Complete 12/22/20 Respiratory Virus Panel (PCR) ([facility]) - Final, Complete Discharge Medications Scheduled Bupropion HCl (Bupropion Xl) 300 Mg Tab.er.24h, 300 MG PO DAILY, (Reported) Carvedilol (Carvedilol) 12.5 Mg Tablet, 12.5 MG PO BID, (Reported) Docusate Sodium (Docusate Sodium) 100 Mg Capsule, 100 MG PO DAILY, (Reported) Megestrol Acetate (Megestrol Acetate) 40 Mg Tablet, 40 MG PO Q6H, (Reported) Mupirocin (Mupirocin) 2 % Oint...g., 1 DOSE EXT BID, (Reported) APPLIES TO LEFT LOWER LEG Pantoprazole Sodium (Pantoprazole Sodium) 40 Mg Tablet.dr, 40 MG PO DAILY, (Reported) Propafenone HCl (Propafenone HCl) 300 Mg Tablet, 300 MG PO BID, (Reported) Raloxifene HCl (Raloxifene HCl) 60 Mg Tablet, 60 MG PO DAILY, (Reported) Tamsulosin HCl (Flomax) 0.4 Mg Capsule, 0.4 MG PO DAILY Warfarin Sodium (Warfarin Sodium) 5 Mg Tablet, 5 MG PO QHS, (Reported) Scheduled PRN Ondansetron HCl (Ondansetron HCl) 4 Mg Tablet, 4 MG PO Q4H PRN for NAUSEA OR VOMITING, (Reported) Polyethylene Glycol 3350 (Miralax) 119 Gm Powder, 17 GM PO DAILY PRN for CONSTIPATION dilute in 8 ounces of water or juice Allergies Coded Allergies: Sulfa (Sulfonamide Antibiotics) (Verified Adverse Reaction, Intermediate, upset stomach, 06/27/19) LEE PETERSEN DO Dec 28, 2020 22:59
== END 2020-12-28 15:56 | DRG 947 ==
LOC: M ED 16:48 → M ED INP 22:17 → ENRESERV 23:50 → M MSPAV 12-23 00:13
PROVIDERS: ADMIT Internal Medicine; ATTEND Internal Medicine
PROC: 5A1D70Z Performance of Urinary Filtration, Intermittent, Less than 6 Hours Per Day (ICD-10-PCS; principal; 2020-12-23)
PROC: 30233N1 Transfusion of Nonautologous Red Blood Cells into Peripheral Vein, Percutaneous Approach (ICD-10-PCS; 2020-12-23)
DX: R53.81 Other malaise (principal); N18.6 End stage renal disease; I48.19 Other persistent atrial fibrillation; I12.0 Hypertensive chronic kidney disease with stage 5 chronic kidney disease or end stage renal disease; D68.59 Other primary thrombophilia; R53.1 Weakness; R29.6 Repeated falls; F03.90 Unspecified dementia, unspecified severity, without behavioral disturbance, psychotic disturbance, mood disturbance, and anxiety; M62.81 Muscle weakness (generalized); E87.6 Hypokalemia; D63.1 Anemia in chronic kidney disease; K59.00 Constipation, unspecified; G25.0 Essential tremor; E78.5 Hyperlipidemia, unspecified; R33.9 Retention of urine, unspecified; Z87.81 Personal history of (healed) traumatic fracture; Z79.01 Long term (current) use of anticoagulants; Z79.899 Other long term (current) drug therapy; Z88.2 Allergy status to sulfonamides; Z98.49 Cataract extraction status, unspecified eye; Z99.2 Dependence on renal dialysis

== ENCOUNTER 2020-12-28 13:50 | Inpatient (IN) | payer MEDICARE, BC ==
[~2020-12-28] VITALS: Ht 167.6 cm; Wt 63.0 kg
[~2020-12-28 13:50] MED LIST changes: +BUPR-335 PO; +CITA20TA7 PO; +DOCU100C16 PO; +MEGE40TA PO; +MUPI2OI EXT; +ONDA-83 PO; +ONDA4TAB6 PO
[2020-12-28] MEDS ORDERED: FLOM0.4C39 PO (14:11)
[2020-12-28] MEDS ORDERED: MOM30SS2 PO (14:11)
[2020-12-28] MEDS ORDERED: MIRA3350 PO (14:18)
[2020-12-28 16:00] VITALS: BP 149/70
[2020-12-28] MEDS ORDERED: ACETAMINOPHEN TAB 650MG DOSE (2X325MG) PO PRN (16:10)
[2020-12-28] MEDS: MEGESTROL 40 MG TAB PO SCH ×2 (17:00→21:14)
[2020-12-28] MEDS ORDERED: WARFARIN SOD 5MG TAB PO ONE (17:15)
[2020-12-28 20:30] VITALS: BP 132/63
[2020-12-28] MEDS: MUPIROCIN 2% OINT 22 GM TUBE TOP SCH (21:12)
[2020-12-28] MEDS: PROPAFENONE 150 MG TAB PO SCH (21:13)
[2020-12-28] MEDS: SENNA 8.6 MG TAB (SENOKOT) PO SCH (21:13)
[2020-12-28] MEDS: DOCUSATE SODIUM 100MG CAPSULE PO SCH (21:14)
[2020-12-28] MEDS: CARVedilol 12.5 MG TAB PO SCH (21:14)
[2020-12-28] MEDS: REMEDY PHYTOPLEX Z-GUARD PASTE 113GM TUBE (FROM STOREROOM PRODUCT) TOP SCH (21:15)
--- NOTE | 2020-12-28 23:38 | IPN ---
PROGRESS NOTE DATE: 12/28/2020 SUBJECTIVE: Lyric is seen and examined this morning at the bedside in the hemodialysis unit. Her dialysis treatment is uneventful and she offers no complaints. She is tolerating ultrafiltration without any issues. OBJECTIVE: VITAL SIGNS: Temperature 97.1, pulse 64, respiratory rate 18, blood pressure 132/63, saturating 99% on room air. GENERAL: Patient is seen drowsy but easily arousable, receiving her maintenance dialysis treatment. HEENT: Extraocular muscles are intact. Tongue is moist. Neck is supple. Jugular veins are not elevated. HEART: Sounds are regular S1, S2. There is no peripheral edema. LUNGS: Clear to auscultation bilaterally. No crackle or rale. ABDOMEN: Soft and nontender. There are bowel sounds. EXTREMITIES: Show decreased lean muscle mass. There is no clubbing or cyanosis. There is a fistula in the right forearm, which is presently in use. NEUROLOGIC: She is oriented to person and to place, but cannot tell me the year. She remains confused. TODAY'S LABORATORY STUDIES: White count 6.1, hemoglobin 10.6, platelets 333,000. Sodium 136, potassium 3.9, bicarbonate 24. INR 1.5. INPATIENT MEDICATIONS: Reviewed by myself. Coumadin dose was adjusted by the primary service. The remainder of her medications are unchanged as compared to yesterday. PROBLEMS: 1. End-stage renal disease on hemodialysis on Monday, Monday, Monday schedule: Patient is dialyzed today, her volume status and electrolytes are optimized, her fistula is in good use. No change is being made to the current prescription. We remove around 1 to 1.5 liter with each treatment. 2. Anemia of end-stage renal disease: She continues on Aranesp and Venofer with her dialysis treatments and blood count is optimal with hemoglobin in the 10's. 3. Hypertension: Blood pressures are well controlled and no change is being made to the current regimen. There is no hypotension of hemodialysis. She is tolerating fluid removal. 4. Atrial fibrillation: INR is subtherapeutic, Coumadin has been adjusted by the primary team. She continues on Carvedilol and Propafenone for rate control. 5. Urinary retention: She continues to have post void residuals of several hundred cc's. She is on Flomax. Continue with intermittent straight catheterization. She is pending rehabilitation placement. She may end up needing a Lee catheter. 6. Ongoing confusion: Patient is not at her baseline mentation and the primary service has discontinued Celexa. Her ammonia level was negative. She continues to have intermittent urinary retention, but no sign of infections.
[2020-12-29 05:36] VITALS: BP 130/59
[2020-12-29 06:04] LABS: BASO # 0.1 10^3/uL (0.0-0.2); BASO % 1.1 % (0.0-1.0); EOS # 0.1 10^3/uL (0.0-0.5); EOS % 0.9 % (0.0-3.0); HEMATOCRIT 37.3 % (36.0-47.0); HEMOGLOBIN 11.9 g/dl (12.0-15.5); LYMPH # 1.4 10^3/uL (1.5-5.0); LYMPH % 22.1 % (24.0-44.0); MEAN CORPUSCULAR HGB CONC 31.9 g/dl (32.0-36.5); MEAN CORPUSCULAR VOLUME 97.1 fl (80.0-96.0); MONO # 0.8 10^3/uL (0.0-0.8); MONO % 12.3 % (2.0-8.0); NEUTROPHILS % 63.3 % (36.0-66.0); PLATELET COUNT, AUTOMATED 341 10^3/uL (150-450); RED BLOOD COUNT 3.84 10^6/uL (4.00-5.40); WHITE BLOOD COUNT 6.3 10^3/uL (4.0-10.0)
[2020-12-29 06:18] LABS: INR 2.1
[2020-12-29 06:25] LABS: BILIRUBIN,TOTAL 0.4 MG/DL (0.2-1.0); CALCIUM LEVEL 10.1 MG/DL (8.8-10.2); CREATININE FOR GFR 4.34 MG/DL (0.55-1.30); GLOMERULAR FILTRATION RATE 10.7 (>39); POTASSIUM SERUM 3.7 MEQ/L (3.5-5.1); TOTAL PROTEIN 6.8 GM/DL (6.4-8.2)
[2020-12-29] MEDS ORDERED: buPROPion **XL** TABLET 150MG (WELLBUTRIN XL) PO SCH (09:00)
[2020-12-29] MEDS: DOCUSATE SODIUM 100MG CAPSULE PO SCH ×2 (09:00→20:05)
[2020-12-29] MEDS ORDERED: MEGESTROL 40 MG TAB PO SCH (09:15)
[2020-12-29] MEDS: PANTOPRAZOLE 40MG TAB (PROTONIX) PO SCH (09:24)
[2020-12-29] MEDS: CARVedilol 12.5 MG TAB PO SCH ×2 (09:27→20:05)
[2020-12-29] MEDS: REMEDY PHYTOPLEX Z-GUARD PASTE 113GM TUBE (FROM STOREROOM PRODUCT) TOP SCH ×3 (09:28→20:07)
[2020-12-29] MEDS: PROPAFENONE 150 MG TAB PO SCH ×2 (09:28→20:06)
[2020-12-29] MEDS: TAMSULOSIN 0.4 MG CAP PO SCH (09:29)
[2020-12-29] MEDS: MUPIROCIN 2% OINT 22 GM TUBE TOP SCH ×2 (09:29→20:07)
[2020-12-29] MEDS ORDERED: MEGESTROL 400MG 10ML SUSP ORAL SYRINGE *DRAW UP EXACT DOSE PO SCH (09:49)
[2020-12-29 14:00] VITALS: BP 121/60
--- NOTE | 2020-12-29 14:12 | HPEPDOC ---
Synthetic Cloth Binding Cutter Note DATE OF ADMISSION: 12/28/20 DATE OF SERVICE: 12/29/20 TIME OF ADMISSION: Please refer to physician's admission order. SOURCE OF ADMISSION INFORMATION: [facility] record, patient, and family member CHIEF COMPLAINT: weakness due to microcytic anemia and confusion HISTORY OF PRESENT ILLNESS: 70F pmh ESRD, HTN, HLD, Afib on warfarin, poor appetite on and off Megace, who was developing worsening weakness at home with multiple falls and worsening confusion, with ongoing neurology work-up by Dr. Giles who presented to [facility] ED on 12-22-20 with increased frequency of falls. Patient was found to have microcytic anemia for which she received blood transfusions, and CTH was negative for any acute intracranial pathology. She was noted to have shuffling gait with bilateral UE tremors and waxing and waning levels of lucidity which caused difficulty in ADLs and mobility for which she was deemed medically appropriate for admission to ARU. REVIEW OF SYSTEMS: The following is a completed review of systems and has been reviewed. Review of systems otherwise unremarkable. PAIN: Patient self reports no pain EYES: No recent vision changes EARS, NOSE, & THROAT: No throat pain, or dysphagia, or rhinorrhea CARDIOVASCULAR: Denies chest pain or palpitations PULMONARY: Denies shortness of breath GASTROINTESTINAL: Denies constipation/diarrhea GENITOURINARY: denies dysuria MUSCULOSKELETAL: generalized weakness NEUROLOGICAL: bilat UE tremor HEMATOLOGICAL: +anemia SKIN: +sacral ulcer PSYCHIATRIC: +confused All other review of systems found to be negative. PAST MEDICAL HISTORY: as per HPI PAST SURGICAL HISTORY: Right hip fracture, right ankle fracture, hysterectomy ALLERGIES: Please see below. MEDICATIONS: Please see below. FAMILY HISTORY: CAD, DM, HTn, Pancreatic cancer SOCIAL HISTORY: Former smoker, no etoh/illicit drugs DIET: 2g low sodium, fluid restrict PHYSICAL EXAMINATION: VITAL SIGNS: Please see below. GENERAL: Pleasant and cooperative. No acute distress. HEENT: PERRL. Extraocular movements intact. Clear conjunctiva CARDIOVASCULAR: Regular rate and rhythm. No murmurs, rubs, or gallops LUNGS: Clear to auscultation bilaterally. No wheezes. No rhonchi ABDOMEN: Soft, nontender, nondistended. Positive bowel sounds. Normal active bowel sounds NEUROLOGICAL: Alert and oriented to self not time or place, able to follow directions, Cranial nerves II through XII grossly intact. Sensation grossly intact] EXTREMITIES: 5-\5 strength bilateral upper extremities. 5-\5 strength right lower extremity. 5-/5 strength in left lower extremity. [ SKIN: +sacral stage 2 ulcer LABORATORY DATA: Please see below. IMAGING: Imaging documentation personally reviewed by record. FUNCTIONAL STATUS: Premorbid: Modified Independent with all activities of daily life as well as mobility On Admission: Min-Max assist for bed mobility, dressing, toileting, ambulation GOALS: Supervision ambulation, functional transfers, bed mobility, dressing, bathing ASSESSMENT:70-year-old F with past medical history of ESRD who presents status post multiple falls with worsening weakness and confusion PLAN: 1. Rehab- PT/OT advance mobility and ADLs, strengthen/stretch/maintain ROM all 4limbs -SHREDDER TENDER eval for cog and swallow as patient taking meds crushed at this time and wish to see if safe to swallow pills whole 2. Neuro- encephalopathic with weakness etiology unclear, however will d/c Megace which per daughter was restarted a few months ago due to poor po intake as can cause confusion and muscle weakness, will encourage po intake on the floor and see if she clears up cognitively and if muscle weakness improved -will also lower dose of Wellbutrin as this may contributing to tremors -will consider inhouse neurology referral if symptoms do not improve -Zyprexa prn for agitation 3. CArdiac- hx of afib on Coumadin, daily PT/INRs, c/u rhythmol and Coreg- medicine consulted to assist in overall management -diastolic CHF c/u fluid restriction 4. Resp- monitor for infection 5. Renal- ESRD on HD, renal consulted -c/u flomax for urinary retention 6. Heme- anemia due to chronic disease s/p transfusions, renal managing 7. GI ppx- protonix 8. DVT ppx- on warfarin 9. Dispo- tbd POST ADMISSION PHYSICIAN EVALUATION: Medical and functional status: Description of medical status, medical as sessment: As above. Rehabilitation diagnosis and current and prior cold morbid medical conditions as above. Risk of complications and plans to mitigate them as above. Description of functional status current status is as above. Prior status as above. Status compared to preadmission: There are no clinically significant differences between the patient's current status and the information described on the preadmission screening document. Treatment plan anticipated: Treatment plan is as described above. Required disciplines including physical therapy, occupational therapy, others as noted above. Intensity of services: 3 hours a day, 6 days a week. Special considerations: There are no specific special or safety considerations that would likely preclude immediate implementation of an intensive rehabilitation program or subsequently influence the plan of care. ATTESTATION: Considering all the information above, it is my best judgment that this patient requires intensive rehabilitation therapy as described above and an inpatient hospital environment due to the complexity of nursing, medical, and rehabilitation needs required by the patient. Furthermore, this patient can reasonably be expected to participate in an benefit from an inpatient rehabilitation stay with an interdisciplinary team approach to the delivery of rehabilitation care under the direction and supervision of rehabilitation physician. PROGNOSIS: good ESTIMATED LENGTH OF STAY:14-18 days. PROJECTED DISCHARGE DESTINATION: Home with family support and any durable medical equipment required to increase functional safety and mobility. TIME SPENT COUNSELING AND COORDINATING INITIAL CARE: Greater than 70 minutes. Vital Signs Vital Sign - Last 24 Hours 12/28/20 12/28/20 12/28/20 12/29/20 16:00 20:30 21:14 05:36 Temp 97.4 97.1 97.2 Pulse 66 64 64 72 Resp 18 18 18 B/P (MAP) 149/70 (96) 132/63 (86) 132/63 130/59 (82) Pulse Ox 98 99 92 O2 Delivery Room Air Room Air Room Air 12/29/20 12/29/20 09:27 14:00 Temp 97.8 Pulse 70 61 Resp 18 B/P (MAP) 110/44 121/60 (80) Pulse Ox 96 O2 Delivery Room Air Laboratory Data CBC/BMP Laboratory Tests 12/29/20 05:32 Labs 24H Laboratory Tests 2 12/29/20 05:32: Immature Granulocyte % (Auto) 0.3, Neutrophils (%) (Auto) 63.3, Lymphocytes (%) (Auto) 22.1L, Monocytes (%) (Auto) 12.3H, Eosinophils (%) (Auto) 0.9, Basophils (%) (Auto) 1.1H, Neutrophils # (Auto) 4.0, Lymphocytes # (Auto) 1.4L, Monocytes # (Auto) 0.8, Eosinophils # (Auto) 0.1, Basophils # (Auto) 0.1, Nucleated Red Blood Cells % (auto) 0.5H, Prothrombin Time 24.0H, Prothromb Time International Ratio 2.10, Anion Gap 8, Glomerular Filtration Rate 10.7L, Calcium Level 10.1, Total Bilirubin 0.4, Aspartate Amino Transf (AST/SGOT) 5L, Alanine Aminotransferase (ALT/SGPT) 10L, Alkaline Phosphatase 74, Total Protein 6.8, Albumin 3.0L, Albumin/Globulin Ratio 0.8L Home Medications Scheduled Bupropion HCl (Bupropion Xl) 300 Mg Tab.er.24h, 300 MG PO DAILY, (Reported) Carvedilol (Carvedilol) 12.5 Mg Tablet, 12.5 MG PO BID, (Reported) Docusate Sodium (Docusate Sodium) 100 Mg Capsule, 100 MG PO DAILY, (Reported) Megestrol Acetate (Megestrol Acetate) 40 Mg Tablet, 40 MG PO Q6H, (Reported) Mupirocin (Mupirocin) 2 % Oint...g., 1 DOSE EXT BID, (Reported) APPLIES TO LEFT LOWER LEG Pantoprazole Sodium (Pantoprazole Sodium) 40 Mg Tablet.dr, 40 MG PO DAILY, (Reported) Propafenone HCl (Propafenone HCl) 300 Mg Tablet, 300 MG PO BID, (Reported) Raloxifene HCl (Raloxifene HCl) 60 Mg Tablet, 60 MG PO DAILY, (Reported) Tamsulosin HCl (Flomax) 0.4 Mg Capsule, 0.4 MG PO DAILY Warfarin Sodium (Warfarin Sodium) 5 Mg Tablet, 5 MG PO QHS, (Reported) Scheduled PRN Ondansetron HCl (Ondansetron HCl) 4 Mg Tablet, 4 MG PO Q4H PRN for NAUSEA OR VOMITING, (Reported) Polyethylene Glycol 3350 (Miralax) 119 Gm Powder, 17 GM PO DAILY PRN for CONSTIPATION dilute in 8 ounces of water or juice Allergies Coded Allergies: Sulfa (Sulfonamide Antibiotics) (Verified Adverse Reaction, Intermediate, upset stomach, 06/27/19) A-FIB/CHADSVASC A-FIB History Current/History of A-Fib/PAF?: Yes Current PO Anticoag Therapy: Yes LINA CASTILLO MD Dec 29, 2020 14:12
--- NOTE | 2020-12-29 14:26 | IPNPDOC ---
Text Note Date of Service The patient was seen on 12/29/20. NOTE Subjective: Patient is a 70-year-old female with a PMHx of ESRD on HD (MWF), who presented to the emergency room after frequent falls on 12/22. Upon arrival, patient was found to have an elevated INR and anemia. Nephrology was called on consultation, patient had received vitamin K to correct her elevated INR. Patient had received a single unit of PRBC transfusion on 12/23. Patient was ultimately transitioned to acute rehabilitation unit on 12/28 for further therapy. Hospital services consulted for further evaluation. Patient was seen and examined at the bedside. Currently patient does not appear to be in any distress, is awake, alert. Denies any chest pain, shortness breath, palpitations reported that this morning she had an episode of vomiting, but currently does not experience any nausea. Has not experience any abdominal pain, or diarrhea. Objective: Vitals (See below) General: Lying in bed, appears comfortable, AAOx3 HEENT: NC, AT CVS: +S1S2 Lungs: Fair air entry b/l, no appreciable wheezing / rhonchi / rales Abdomen: Soft,non-distended, non-tender Extremities: No evidence of Edema, - Calf tenderness Assessment and plan: Weakness and frequent falls - possibly 2/2 deconditioning and debility - No focal deficits - CT head 12/22: 1. No acute intracranial abnormality. 2. Atrophy and chronic deep white matter ischemic changes. - CXR 12/22: No active disease.. - c/w PT and OT as per ARU Macrocytic anemia - s/p 1 unit PRBC s/p Coagulopathy - likely 2/2 Coumadin - INR on ER arrival was 4.57 - INR within therapeutic range currently Atrial fibrillation - c/w rate / rhythm Carvedilol and Flecainide - c/w full anticoagulation with Coumadin ESRD on HD (MWF) - Nephrology on consultation HTN - BP well controlled - c/w Carvedilol Urinary retention - Was started on Tamsulosin on prior admission GERD - c/w Protonix DVT prophylaxis - c/w full anticoagulation with Coumadin Disposition: - As per ARU VS,Fishbone, I+O VS, Fishbone, I+O Laboratory Tests 12/29/20 05:32 Vital Signs Date Time Temp Pulse Resp B/P (MAP) Pulse Ox O2 Delivery O2 Flow Rate FiO2 12/29/20 14:00 97.8 61 18 121/60 (80) 96 Room Air I&O- Last 24 Hours up to 6 AM 12/29/20 05:59 Intake Total 410 ml Output Total 0 ml Balance 410 ml ABBI PERKINS MD Dec 29, 2020 14:26
[2020-12-29] MEDS ORDERED: OLANZapine 2.5MG TABLET PO PRN (15:00)
[2020-12-29] MEDS ORDERED: WARFARIN SOD 7.5MG TAB PO SCH (17:00)
[2020-12-29] MEDS: buPROPion 75 MG TAB PO SCH ×2 (17:04→20:06)
[2020-12-29 19:52] VITALS: BP 143/65
[2020-12-29] MEDS: SENNA 8.6 MG TAB (SENOKOT) PO SCH (20:05)
[2020-12-30 05:06] VITALS: BP 148/68
[2020-12-30 05:27] LABS: PROTHROMBIN TIME 31.8 SECONDS (12.5-14.3)
--- NOTE | 2020-12-30 07:58 | IPNPDOC ---
PM&R Progress Note DATE OF SERVICE: Dec 30, 2020 Senior Analyst Progress Note Subective: Patient seen in her bed stating that her arm tremors seem to be a little better today and that it was easier to feed herself, although still difficult. She acknowledges that she has been having visual hallucinations. REVIEW OF SYSTEMS: The following is a completed review of systems and has been reviewed. Review of systems otherwise unremarkable. PAIN: Patient self reports no pain EYES: No recent vision changes EARS, NOSE, & THROAT: No throat pain, or dysphagia, or rhinorrhea CARDIOVASCULAR: Denies chest pain or palpitations PULMONARY: Denies shortness of breath GASTROINTESTINAL: Denies constipation/diarrhea GENITOURINARY: denies dysuria MUSCULOSKELETAL: generalized weakness NEUROLOGICAL: bilat UE tremor HEMATOLOGICAL: +anemia SKIN: +sacral ulcer PSYCHIATRIC: +confused All other review of systems found to be negative. PHYSICAL EXAMINATION: VITAL SIGNS: Please see below. GENERAL: Pleasant and cooperative. No acute distress. HEENT: PERRL. Extraocular movements intact. Clear conjunctiva CARDIOVASCULAR: Regular rate and rhythm. No murmurs, rubs, or gallops LUNGS: Clear to auscultation bilaterally. No wheezes. No rhonchi ABDOMEN: Soft, nontender, nondistended. Positive bowel sounds. Normal active bowel sounds NEUROLOGICAL: Alert and oriented to self not time or place, able to follow directions, Cranial nerves II through XII grossly intact. Sensation grossly intact EXTREMITIES: 5-\5 strength bilateral upper extremities. 5-\5 strength right lower extremity. 5-/5 strength in left lower extremity. ASSESSMENT:70-year-old F with past medical history of ESRD who presents status post multiple falls with worsening weakness and confusion PLAN: 1. Rehab- PT/OT advance mobility and ADLs, strengthen/stretch/maintain ROM all 4limbs -APPLE SOLUTIONS CONSULTANT eval for cog and swallow as patient taking meds crushed at this time and wish to see if safe to swallow pills whole 2. Neuro- encephalopathic with weakness etiology unclear -c/u off Megace which per daughter was restarted a few months ago due to poor po intake as can cause confusion and muscle weakness, will encourage po intake on the floor and see if she clears up cognitively and if muscle weakness improved -c/u lower dose of Wellbutrin as this may contributing to tremors which are slightly better today -will consult neurology to c/u outpatient work up for dementia-like symptoms -Zyprexa prn for agitation 3. CArdiac- hx of afib on Coumadin, daily PT/INRs, c/u rhythmol and Coreg- medicine consulted to assist in overall management -diastolic CHF c/u fluid restriction 4. Resp- monitor for infection 5. Renal- ESRD on HD, renal consulted -c/u flomax for urinary retention 6. Heme- anemia due to chronic disease s/p transfusions, renal managing 7. GI ppx- protonix 8. DVT ppx- on warfarin 9. Dispo- tbd Allergies Coded Allergies: Sulfa (Sulfonamide Antibiotics) (Verified Adverse Reaction, Intermediate, upset stomach, 06/27/19) Vital Signs Vital Signs Date Time Temp Pulse Resp B/P (MAP) Pulse Ox O2 Delivery O2 Flow Rate FiO2 12/30/20 05:06 98.6 62 18 148/68 (94) 98 Room Air Laboratory Data Labs 24H Laboratory Tests 2 12/30/20 04:40: Prothrombin Time 31.8H, Prothromb Time International Ratio 3.00 Current Medications Current Medications Current Medications Medications (Trade) Dose Ordered Sig/Eileen Route PRN Reason Start Time Stop Time Status Last Admin Dose Admin Acetaminophen (Tylenol Tab) 650 mg Q4HP PRN PO fever/MILD PAIN (PS 1-4) 12/28/20 16:10 Bupropion HCl (Wellbutrin Xl) 300 mg DAILY PO 12/29/20 09:00 12/29/20 10:05 DC 12/29/20 09:28 Bupropion HCl (Wellbutrin) 75 mg TID PO 12/29/20 16:00 12/29/20 20:06 Bupropion HCl (Wellbutrin) 75 mg TID PO 12/30/20 16:00 12/29/20 15:39 DC Bupropion HCl (Wellbutrin) 100 mg TID PO 12/30/20 09:00 12/29/20 14:38 DC Carvedilol (COReg) 12.5 mg BID PO 12/28/20 21:00 12/29/20 20:05 Docusate Sodium (Colace) 100 mg BID PO 12/28/20 21:00 12/29/20 20:05 Megestrol Acetate (Megace Acetate Suspension) 40 mg QID PO 12/29/20 09:49 12/29/20 14:38 DC Megestrol Acetate (Megace) 40 mg QID PO 12/28/20 17:00 12/29/20 09:18 DC 12/28/20 21:14 Megestrol Acetate (Megace) 40 mg QID PO 12/29/20 09:15 12/29/20 09:49 DC Mupirocin (Bactroban 2% Ointment) 1 dose BID TOP 12/28/20 21:00 12/29/20 20:07 Olanzapine (ZyPREXA) 2.5 mg Q6HP PRN PO AGITATION 12/29/20 15:00 Pantoprazole Sodium (Protonix) 40 mg DAILY PO 12/29/20 09:00 12/29/20 09:24 Polyethylene Glycol (Miralax) 1 pkt DAILY PRN PO CONSTIPATION 12/28/20 16:10 Propafenone HCl (Rythmol) 300 mg BID PO 12/28/20 21:00 12/29/20 20:06 Senna (Senokot) 1 tab QHS PO 12/28/20 21:00 12/29/20 20:05 Tamsulosin HCl (Flomax) 0.4 mg DAILY PO 12/29/20 09:00 12/29/20 09:29 Warfarin Sodium (Coumadin) 7.5 mg DAILY@17 PO 12/29/20 17:00 12/29/20 17:04 LINA CASTILLO MD Dec 30, 2020 07:58
[2020-12-30] MEDS ORDERED: buPROPion 100 MG TAB PO SCH ×2 (09:00→16:00)
[2020-12-30] MEDS: buPROPion 75 MG TAB PO SCH ×3 (09:05→20:21)
[2020-12-30] MEDS: CARVedilol 12.5 MG TAB PO SCH ×2 (09:05→20:22)
[2020-12-30] MEDS: DOCUSATE SODIUM 100MG CAPSULE PO SCH ×2 (09:05→20:22)
[2020-12-30] MEDS: PROPAFENONE 150 MG TAB PO SCH ×2 (09:06→20:21)
[2020-12-30] MEDS: PANTOPRAZOLE 40MG TAB (PROTONIX) PO SCH (09:06)
[2020-12-30] MEDS: TAMSULOSIN 0.4 MG CAP PO SCH (09:06)
[2020-12-30] MEDS: MUPIROCIN 2% OINT 22 GM TUBE TOP SCH ×2 (09:13→20:22)
[2020-12-30] MEDS: REMEDY PHYTOPLEX Z-GUARD PASTE 113GM TUBE (FROM STOREROOM PRODUCT) TOP SCH ×3 (09:14→20:22)
[2020-12-30] MEDS ORDERED: LIDOCAINE 1% SDV 5ML VIAL SC PRN (10:15)
[2020-12-30] MEDS ORDERED: SODIUM CHLORIDE 0.9% 1000ML IV PRN (10:15)
[2020-12-30 10:16] LABS: BASO # 0.1 10^3/uL (0.0-0.2); BASO % 0.8 % (0.0-1.0); EOS # 0.1 10^3/uL (0.0-0.5); EOS % 0.7 % (0.0-3.0); HEMATOCRIT 40.3 % (36.0-47.0); HEMOGLOBIN 12.5 g/dl (12.0-15.5); LYMPH % 13.5 % (24.0-44.0); MEAN CORPUSCULAR HEMOGLOBIN 30.9 pg (27.0-33.0); MEAN CORPUSCULAR VOLUME 99.5 fl (80.0-96.0); MONO # 0.6 10^3/uL (0.0-0.8); MONO % 8.5 % (2.0-8.0); NEUTROPHILS # 5.6 10^3/uL (1.5-8.5); NEUTROPHILS % 76.2 % (36.0-66.0); PLATELET COUNT, AUTOMATED 350 10^3/uL (150-450); RED BLOOD COUNT 4.05 10^6/uL (4.00-5.40); WHITE BLOOD COUNT 7.4 10^3/uL (4.0-10.0)
[2020-12-30 10:40] LABS: CALCIUM LEVEL 10.8 MG/DL (8.8-10.2); CREATININE FOR GFR 6.47 MG/DL (0.55-1.30); GLOMERULAR FILTRATION RATE 6.8 (>39); POTASSIUM SERUM 4.1 MEQ/L (3.5-5.1)
[2020-12-30] MEDS ORDERED: IRON SUCROSE 100MG 5ML VIAL (J1756 PER 1MG) IV SCH (11:25)
[2020-12-30 14:00] VITALS: BP 134/59
[2020-12-30] MEDS: WARFARIN SOD 1MG TAB PO SCH (16:34)
--- NOTE | 2020-12-30 19:51 | IPN ---
NEPHROLOGY PROGRESS NOTE DATE: 12/30/2020 SUBJECTIVE: Lyric is seen and examined this afternoon in the Hemodialysis Unit receiving her treatment. She remains confused and not at baseline mentation but her treatment has been uneventful. Her oral intake appears poor. She denies any complaints. OBJECTIVE: PHYSICAL EXAMINATION: VITAL SIGNS: Temperature 97.6, pulse 59, respiratory rate 18, blood pressure 134/59, saturating 98% on room air. Weight in the bed scale today is 61 kg. Dialysis today removed one liter. GENERAL APPEARANCE: The patient is seen lying in bed in the hemodialysis unit drowsy but easily arousable, oriented to self and to place but not to year and not at baseline mentation. Makes eye contact. HEENT: The extraocular muscles are intact. The tongue is moist. NECK: Supple. Jugular veins are not elevated. HEART: Regular. S1, S2. There is no peripheral edema. LUNGS: Clear to auscultation bilaterally. No crackles or rales. ABDOMEN: Soft and nontender. EXTREMITIES: Decreased lean muscle mass and muscle wasting. There is no clubbing or cyanosis. There is a fistula in the right forearm which is presently in use. NEUROLOGICAL: The patient is confused, thinks the year is 1950. She is able to tell me her name and her date of . She recognizes me as well. LABORATORY STUDIES: Sodium 132, potassium 4.1, bicarbonate 26. Hemoglobin 12.5, platelet count 350. CURRENT INPATIENT MEDICATIONS: The patient's medications were reviewed by myself. I note her Bupropion dose was adjusted yesterday to 75 mg three times daily. Her remainder medications are unchanged as compared to yesterday. PROBLEMS: 1. End-stage renal disease on hemodialysis on a Monday, Monday, Monday schedule the patient's oral intake has been poor. We have not been removing much fluid. One liter was removed today. Her volume status is acceptable. His fistula is in good use. I note her calcium is mildly elevated and calcium in the dialysis bath was reduced. 2. Anemia of end-stage renal disease - hemoglobin is above goal. Aranesp has been discontinued. She is receiving a couple more doses of IV iron. 3. Hypertension - blood pressures are acceptable and no change is being made to her current regimen. There is no hypotension of hemodialysis. 4. Atrial fibrillation her INR is therapeutic now. Coumadin is adjusted by the Primary Team. She continues on Carvedilol and Propafenone for rate control. 5. Urinary retention the patient was having intermittent urinary retention on the medical side of the hospital and should continue to have post void residual bladder scans while in rehab. 6. Confusion and altered mental status I note that the neurology evaluation is pending for further workup of her confusion. The patient has lost a significant amount of weight and has become increasingly debilitated over the past several months.
[2020-12-30 20:00] VITALS: BP 133/62
[2020-12-30] MEDS: SENNA 8.6 MG TAB (SENOKOT) PO SCH (20:22)
[2020-12-31 05:13] VITALS: BP 121/56
[2020-12-31] MEDS: PROPAFENONE 150 MG TAB PO SCH ×2 (08:49→20:40)
[2020-12-31] MEDS: MUPIROCIN 2% OINT 22 GM TUBE TOP SCH ×2 (08:49→20:41)
[2020-12-31] MEDS: buPROPion 75 MG TAB PO SCH ×3 (08:49→20:40)
[2020-12-31] MEDS: TAMSULOSIN 0.4 MG CAP PO SCH (08:49)
[2020-12-31] MEDS: DOCUSATE SODIUM 100MG CAPSULE PO SCH ×2 (08:49→20:39)
[2020-12-31] MEDS: PANTOPRAZOLE 40MG TAB (PROTONIX) PO SCH (08:50)
[2020-12-31] MEDS: CARVedilol 12.5 MG TAB PO SCH ×2 (08:54→20:39)
[2020-12-31] MEDS: REMEDY PHYTOPLEX Z-GUARD PASTE 113GM TUBE (FROM STOREROOM PRODUCT) TOP SCH ×3 (08:55→20:40)
--- NOTE | 2020-12-31 10:17 | CR ---
CONSULTATION DATE: 12/30/2020 REFERRING PHYSICIAN: Dr. Sneha Pate REASON FOR CONSULTATION: Altered mental status, tremor and difficulty walking. HISTORY OF PRESENT ILLNESS: Lyric Santillan is a 70-year-old woman with history of end-stage renal disease, hypertension, atrial fibrillation, who was brought to [facility] due to worsening weakness, falls, altered mental status. She was seen by Dr. Giles within the last one month for similar complaints. The patient is unable to provide any history. History was obtained from electronic medical records. The patient herself states that she came to [facility] to check the hook on the wall which she found after she came to hospital. The patient has shuffling gait, tremor of arms, waxing and waning mental status. She has required increased assistance in activities of daily living. She denies any headache, neck or back pain. She denies dysphagia, dysarthria, diplopia or urinary incontinence. DIAGNOSTIC STUDIES: CT scan of head showed mild atrophy and small vessel ischemic disease of brain. Creatinine was 6.47 with normal CBC. SOCIAL HISTORY: She is a former smoker. She denies alcohol or illicit drugs. FAMILY HISTORY: Significant for pancreatic cancer, coronary artery disease, diabetes. REVIEW OF SYSTEMS: All systems were reviewed with the patient and were found to be noncontributory except as mentioned in history of present illness. ALLERGIES: SULFA. HOME MEDICATIONS: 1. Wellbutrin 300 mg p.o. daily. 2. Carvedilol 12.5 mg p.o. b.i.d. 3. Megestrol 40 mg p.o. q.6 hours. 4. Protonix 40 mg p.o. daily. 5. Propafenone 300 mg p.o. b.i.d. 6. Raloxifene 60 mg p.o. daily. 7. Flomax 0.4 mg p.o. daily. 8. Coumadin 5 mg p.o. daily. PHYSICAL EXAMINATION: VITAL SIGNS: Temperature 97.6, pulse 58, respiratory rate 18, blood pressure 134/59. HEART: Irregularly irregular. LUNGS: Clear to auscultation. ABDOMEN: Soft, nontender, nondistended. EXTREMITIES: No pedal edema. MUSCULOSKELETAL: No abnormalities. SKIN: No rash. NEUROLOGICAL: No signs of meningeal irritation. The patient has bilateral action and postural tremor of both hands. The patient is awake, alert but oriented to self and place. She is unable to tell me day, date, month, year, name of president. Her recall is 0/3-5 minutes. She is unable to do serial sevens. She cannot spell world backwards. She has decreased rapid finger movements. She has tremor of both hands. She has cogwheel rigidity of both hands and arms. She is able to move all four extremities. Deep tendon reflexes are 1+ throughout. Normal sensation throughout. Gait was not tested although it has been described as shuffling. ASSESSMENT: 1. Suspected Lewy body dementia. 2. Parkinsonism. 3. Altered mental status with waxing and waning mental status related to above. PLAN: 1. The patient has been reported to have visual hallucinations already. These will get worse with introduction of Sinemet. Her mental status can also get worse with any dopamine agonist medications. 2. Seroquel 25 mg p.o. q.h.s. to improve her mentation and hallucinations. 3. Lewy body dementia is more likely than Parkinson's disease due to her already altered mental status even before she was given a trial of Sinemet. Avoid Haldol, Risperdal, Abilify as it will make her Parkinsonism much worse. Nuplazid can be considered on outpatient basis if her insurance covers it. 4. Continue physical and occupational therapy and rehabilitation but it may be difficult with her altered mental status.
[2020-12-31 13:26] LABS: INR 2.89; PROTHROMBIN TIME 30.9 SECONDS (12.5-14.3)
[2020-12-31 14:00] VITALS: BP 130/60
--- NOTE | 2020-12-31 14:44 | IPNPDOC ---
PM&R Progress Note DATE OF SERVICE: Dec 31, 2020 Display Mechanic Progress Note Subective: Patient reporting she feels ok today, but still feels weak and confused. REVIEW OF SYSTEMS: The following is a completed review of systems and has been reviewed. Review of systems otherwise unremarkable. PAIN: Patient self reports no pain EYES: No recent vision changes EARS, NOSE, & THROAT: No throat pain, or dysphagia, or rhinorrhea CARDIOVASCULAR: Denies chest pain or palpitations PULMONARY: Denies shortness of breath GASTROINTESTINAL: Denies constipation/diarrhea GENITOURINARY: denies dysuria MUSCULOSKELETAL: generalized weakness NEUROLOGICAL: bilat UE tremor (improving) HEMATOLOGICAL: +anemia SKIN: +sacral ulcer PSYCHIATRIC: +confused All other review of systems found to be negative. PHYSICAL EXAMINATION: VITAL SIGNS: Please see below. GENERAL: Pleasant and cooperative. No acute distress. HEENT: PERRL. Extraocular movements intact. Clear conjunctiva CARDIOVASCULAR: Regular rate and rhythm. No murmurs, rubs, or gallops LUNGS: Clear to auscultation bilaterally. No wheezes. No rhonchi ABDOMEN: Soft, nontender, nondistended. Positive bowel sounds. Normal active bowel sounds NEUROLOGICAL: Alert and oriented to self not time or place, able to follow directions, Cranial nerves II through XII grossly intact. Sensation grossly intact EXTREMITIES: 5-\5 strength bilateral upper extremities. 5-\5 strength right lower extremity. 5-/5 strength in left lower extremity. ASSESSMENT:70-year-old F with past medical history of ESRD who presents status post multiple falls with worsening weakness and confusion PLAN: 1. Rehab- PT/OT advance mobility and ADLs, strengthen/stretch/maintain ROM all 4limbs -FRONT LINE LEADER eval for cog and swallow as patient taking meds crushed at this time and wish to see if safe to swallow pills whole 2. Neuro- encephalopathic with weakness etiology unclear -c/u off Megace which per daughter was restarted a few months ago due to poor po intake as can cause confusion and muscle weakness, will encourage po intake on the floor and see if she clears up cognitively and if muscle weakness improved -c/u to taper lower Wellbutrin as this may contributing to tremors which are still improving -neuro consults, recs appreciated i, patient will be treated for Lewy Body dementia with Seroquel 25mg qHS -Zyprexa prn for agitation 3. CArdiac- hx of afib on Coumadin, daily PT/INRs, c/u rhythmol and Coreg- medicine consulted to assist in overall management -diastolic CHF c/u fluid restriction 4. Resp- monitor for infection 5. Renal- ESRD on HD, renal consulted -c/u flomax for urinary retention 6. Heme- anemia due to chronic disease s/p transfusions, renal managing 7. GI ppx- protonix 8. DVT ppx- on warfarin 9. Dispo- tbd Allergies Coded Allergies: Sulfa (Sulfonamide Antibiotics) (Verified Adverse Reaction, Intermediate, upset stomach, 06/27/19) Vital Signs Vital Signs Date Time Temp Pulse Resp B/P (MAP) Pulse Ox O2 Delivery O2 Flow Rate FiO2 12/31/20 14:00 98.0 60 17 130/60 (83) 98 Room Air Laboratory Data Labs 24H Laboratory Tests 2 12/31/20 13:01: Prothrombin Time 30.9H, Prothromb Time International Ratio 2.89, Parathyroid Hormone (Intact) 526.2H Current Medications Current Medications Current Medications Medications (Trade) Dose Ordered Sig/Eileen Route PRN Reason Start Time Stop Time Status Last Admin Dose Admin Acetaminophen (Tylenol Tab) 650 mg Q4HP PRN PO fever/MILD PAIN (PS 1-4) 12/28/20 16:10 Bupropion HCl (Wellbutrin Xl) 300 mg DAILY PO 12/29/20 09:00 12/29/20 10:05 DC 12/29/20 09:28 Bupropion HCl (Wellbutrin) 75 mg TID PO 12/29/20 16:00 12/31/20 08:49 Bupropion HCl (Wellbutrin) 75 mg TID PO 12/30/20 16:00 12/29/20 15:39 DC Bupropion HCl (Wellbutrin) 100 mg TID PO 12/30/20 09:00 12/29/20 14:38 DC Carvedilol (COReg) 12.5 mg BID PO 12/28/20 21:00 12/30/20 20:22 Docusate Sodium (Colace) 100 mg BID PO 12/28/20 21:00 12/31/20 08:49 Heparin Sodium (Heparin) Please refer to ... ASDIRECTED XX 12/30/20 10:15 12/31/20 10:14 DC Iron (Venofer) 100 mg HD IV 12/30/20 11:25 01/01/21 11:26 12/30/20 13:11 Lidocaine HCl (Lidocaine 1% Sdv) 0.5 ml ASDIRECTED PRN SC SEE LABEL COMMENTS 12/30/20 10:15 12/31/20 10:14 DC Megestrol Acetate (Megace Acetate Suspension) 40 mg QID PO 12/29/20 09:49 12/29/20 14:38 DC Megestrol Acetate (Megace) 40 mg QID PO 12/28/20 17:00 12/29/20 09:18 DC 12/28/20 21:14 Megestrol Acetate (Megace) 40 mg QID PO 12/29/20 09:15 12/29/20 09:49 DC Mupirocin (Bactroban 2% Ointment) 1 dose BID TOP 12/28/20 21:00 12/31/20 08:49 Olanzapine (ZyPREXA) 2.5 mg Q6HP PRN PO AGITATION 12/29/20 15:00 Pantoprazole Sodium (Protonix) 40 mg DAILY PO 12/29/20 09:00 12/31/20 08:50 Polyethylene Glycol (Miralax) 1 pkt DAILY PRN PO CONSTIPATION 12/28/20 16:10 Propafenone HCl (Rythmol) 300 mg BID PO 12/28/20 21:00 12/31/20 08:49 Senna (Senokot) 1 tab QHS PO 12/28/20 21:00 12/29/20 20:05 Sodium Chloride (Nacl 0.9%) 200 ml ASDIRECTED PRN IV SEE LABEL COMMENTS 12/30/20 10:15 12/31/20 10:14 DC Tamsulosin HCl (Flomax) 0.4 mg DAILY PO 12/29/20 09:00 12/31/20 08:49 Warfarin Sodium (Coumadin) 1 mg DAILY@17 PO 12/30/20 17:00 12/30/20 16:34 Warfarin Sodium (Coumadin) 7.5 mg DAILY@17 PO 12/29/20 17:00 12/30/20 07:58 DC 12/29/20 17:04 LINA CASTILLO MD Dec 31, 2020 14:44
[2020-12-31] MEDS: WARFARIN SOD 1MG TAB PO SCH (17:47)
[2020-12-31 20:00] VITALS: BP 142/66
[2020-12-31] MEDS: SENNA 8.6 MG TAB (SENOKOT) PO SCH (20:39)
[2020-12-31] MEDS: QUEtiapine FUMARATE 25 MG TAB PO SCH (20:40)
[2021-01-01 05:20] VITALS: BP 130/59
[2021-01-01] MEDS ORDERED: buPROPion 100 MG TAB PO SCH (09:00)
[2021-01-01] MEDS: CARVedilol 12.5 MG TAB PO SCH ×2 (09:00→21:01)
[2021-01-01] MEDS: DOCUSATE SODIUM 100MG CAPSULE PO SCH ×2 (09:46→21:02)
[2021-01-01] MEDS: PROPAFENONE 150 MG TAB PO SCH ×2 (09:47→21:01)
[2021-01-01] MEDS: TAMSULOSIN 0.4 MG CAP PO SCH (09:47)
[2021-01-01] MEDS: CINACALCET 30 MG TAB (SENSIPAR) PO SCH (09:47)
[2021-01-01] MEDS: PANTOPRAZOLE 40MG TAB (PROTONIX) PO SCH (09:47)
[2021-01-01] MEDS: MUPIROCIN 2% OINT 22 GM TUBE TOP SCH ×2 (09:48→21:02)
[2021-01-01] MEDS: REMEDY PHYTOPLEX Z-GUARD PASTE 113GM TUBE (FROM STOREROOM PRODUCT) TOP SCH ×3 (09:48→21:02)
[2021-01-01] MEDS ORDERED: SODIUM CHLORIDE 0.9% 1000ML IV PRN (12:20)
[2021-01-01] MEDS ORDERED: LIDOCAINE 1% SDV 5ML VIAL SC PRN (12:20)
[2021-01-01 12:50] LABS: BASO # 0.1 10^3/uL (0.0-0.2); BASO % 0.7 % (0.0-1.0); EOS # 0.1 10^3/uL (0.0-0.5); EOS % 0.8 % (0.0-3.0); HEMATOCRIT 37.8 % (36.0-47.0); HEMOGLOBIN 11.9 g/dl (12.0-15.5); LYMPH # 1.2 10^3/uL (1.5-5.0); MEAN CORPUSCULAR HEMOGLOBIN 30.4 pg (27.0-33.0); MEAN CORPUSCULAR HGB CONC 31.5 g/dl (32.0-36.5); MEAN CORPUSCULAR VOLUME 96.7 fl (80.0-96.0); MONO # 0.7 10^3/uL (0.0-0.8); MONO % 8.7 % (2.0-8.0); NEUTROPHILS # 6.2 10^3/uL (1.5-8.5); NEUTROPHILS % 74.4 % (36.0-66.0); PLATELET COUNT, AUTOMATED 301 10^3/uL (150-450); RED BLOOD COUNT 3.91 10^6/uL (4.00-5.40); WHITE BLOOD COUNT 8.3 10^3/uL (4.0-10.0)
[2021-01-01 13:24] LABS: CALCIUM LEVEL 9.7 MG/DL (8.8-10.2); CREATININE FOR GFR 6.43 MG/DL (0.55-1.30); GLOMERULAR FILTRATION RATE 6.8 (>39); POTASSIUM SERUM 4.1 MEQ/L (3.5-5.1)
[2021-01-01] MEDS: IRON SUCROSE 100MG 5ML VIAL (J1756 PER 1MG) IV SCH ×2 (13:27→13:54)
[2021-01-01 13:28] LABS: INR 3.13; PROTHROMBIN TIME 32.9 SECONDS (12.5-14.3)
[2021-01-01 14:00] VITALS: BP 109/75
--- NOTE | 2021-01-01 15:00 | IPNPDOC ---
Text Note Date of Service The patient was seen on 01/01/21. NOTE Subjective: No any acute events overnight. Patient stated that she is doing be tter with physical therapy Objective: Vitals (See below) General: Lying in bed, appears comfortable, AAOx3 HEENT: NC, AT CVS: +S1S2 Lungs: Fair air entry b/l, no appreciable wheezing / rhonchi / rales Abdomen: Soft, non-distended, non-tender Extremities: No evidence of Edema, - Calf tenderness Assessment and plan: Patient is a 70-year-old female with a PMHx of ESRD on HD ([facility]), who presented to the emergency room after frequent falls on 12/22. Upon arrival, patient was found to have an elevated INR and anemia. Nephrology was called on consultation, patient had received vitamin K to correct her elevated INR. Patient had received a single unit of PRBC transfusion on 12/23. Patient was ultimately transitioned to acute rehabilitation unit on 12/28 for further therapy Weakness and frequent falls - possibly 2/2 deconditioning and debility Continue physical therapy in ARU Macrocytic anemia Hemoglobin stable Follow-up with PCP in the outpatient settings for workup s/p Coagulopathy - likely 2/2 Coumadin Today INR supratherapeutic 3.3. Warfarin on hold Atrial fibrillation Heart rate is under control - c/w rate / rhythm Carvedilol and Flecainide - c/w full anticoagulation with Coumadin ESRD on HD ([facility]) - Nephrology on consultation HTN - BP well controlled - c/w Carvedilol Urinary retention - Was started on Tamsulosin on prior admission GERD - c/w Protonix DVT prophylaxis - c/w full anticoagulation with Coumadin VS,Fishbone, I+O VS, Fishbone, I+O Laboratory Tests 01/01/21 12:30 Vital Signs Date Time Temp Pulse Resp B/P (MAP) Pulse Ox O2 Delivery O2 Flow Rate FiO2 01/01/21 14:00 97.7 51 18 109/75 (86) 98 Room Air I&O- Last 24 Hours up to 6 AM 01/01/21 06:00 Intake Total 840 ml Balance 840 ml ALBERTO DELONG DO Jan 01, 2021 15:00
[2021-01-01] MEDS: buPROPion 100 MG TAB PO SCH ×2 (17:02→22:38)
[2021-01-01 20:00] VITALS: BP 117/59
--- NOTE | 2021-01-01 20:10 | IPN ---
NEPHROLOGY PROGRESS NOTE DATE: 01/01/2021 SUBJECTIVE: Patient seen and examined this morning in the rehabilitation unit and later in the afternoon receiving her dialysis treatment. She offers no complaints. Reports physical therapy has been going well. Assessment by neurology is noted for her confusion. OBJECTIVE: Temperature 97.7, pulse 56, respiratory rate 18, blood pressure 109/75, saturating 98% on room air. Dialysis today removed 1 liter. Weight in the bed scale today is 60.2 kg. GENERAL: Patient is seen sitting in the wheelchair in the rehabilitation unit and later on dialysis, awake, alert, oriented to person and place, but not to the year and answers some questions inappropriately. Makes eye contact. HEAD: Tongue is moist. NECK: Supple. Jugular veins are not elevated. HEART SOUNDS: Regular and bradycardic. S1, S2. There is no peripheral edema. LUNGS: Clear to auscultation bilaterally. No crackle or rale. She seems comfortable on room air. ABDOMEN: Soft and nontender. EXTREMITIES: Show muscle wasting. There is no clubbing or cyanosis. There is a fistula in the right forearm which is presently in use. NEUROLOGIC: Patient is confused. She recognizes me, is able to tell me her name and whereabouts and date of , but answers other simple questions in a nonsensical fashion. LABORATORY STUDIES: Today's laboratory studies show white count 8.3, hemoglobin 11.9, platelets 301. Sodium 136, potassium 4.1, bicarbonate 25. INR 3.1. INPATIENT MEDICATIONS: Reviewed by myself. Coumadin is presently on hold. She was started on Seroquel yesterday. She was also started on cinacalcet 30 mg by mouth Monday and Monday and bupropion was adjusted to 50 mg by mouth twice daily. The remainder of the medications are unchanged as compared to yesterday. PROBLEMS: 1. End-stage renal disease on hemodialysis on a Monday, Monday, Monday schedule. Patient's electrolytes and volume status are acceptable. Her INR is slightly supratherapeutic and she received only a small dose of heparin with today's dialysis treatment. Her fistula is in good use. Continue dialysis prescription. 2. Secondary hyperparathyroidism of renal origin. Parathyroid hormone level 526. Her calcium has been mildly elevated and twice weekly cinacalcet was started. 3. Anemia of end-stage renal disease. Hemoglobin has been above goal and Aranesp remains on hold. She is receiving iron supplementation. 4. Atrial fibrillation. Her INR is slightly supratherapeutic. Her Coumadin is on hold. She continues on carvedilol and propafenone. 5. Intermittent urinary retention. She should have occasional postvoid residual bladder scan. 6. Altered mental status with waxing and waning mentation. She was evaluated by neurology. There is a suspicion for Lewy body dementia along with Parkinsonism and her psychiatric medications were adjusted.
[2021-01-01] MEDS: SENNA 8.6 MG TAB (SENOKOT) PO SCH (21:00)
[2021-01-01] MEDS: QUEtiapine FUMARATE 25 MG TAB PO SCH (21:02)
[2021-01-02 06:08] VITALS: BP 142/67
[2021-01-02 07:20] LABS: INR 2.57; PROTHROMBIN TIME 28.2 SECONDS (12.5-14.3)
[2021-01-02] MEDS: MUPIROCIN 2% OINT 22 GM TUBE TOP SCH ×3 (09:00→21:20)
[2021-01-02] MEDS: DOCUSATE SODIUM 100MG CAPSULE PO SCH ×2 (09:00→21:20)
[2021-01-02] MEDS: PANTOPRAZOLE 40MG TAB (PROTONIX) PO SCH (09:19)
[2021-01-02] MEDS: buPROPion 100 MG TAB PO SCH ×3 (09:19→21:19)
[2021-01-02] MEDS: CARVedilol 12.5 MG TAB PO SCH ×2 (09:20→21:19)
[2021-01-02] MEDS: TAMSULOSIN 0.4 MG CAP PO SCH (09:20)
[2021-01-02] MEDS: PROPAFENONE 150 MG TAB PO SCH ×2 (09:20→21:18)
[2021-01-02] MEDS: REMEDY PHYTOPLEX Z-GUARD PASTE 113GM TUBE (FROM STOREROOM PRODUCT) TOP SCH ×3 (09:22→21:20)
[2021-01-02 14:00] VITALS: BP 130/61
[2021-01-02] MEDS: WARFARIN SOD 1MG TAB PO SCH (18:14)
--- NOTE | 2021-01-02 18:23 | IPN ---
PROGRESS NOTE DATE: 01/02/2021 SUBJECTIVE: Ms. Santillan is seen this morning on her bedside in acute rehab floor. She is sitting in the chair at the time of my visit. She is still confused and disoriented. She was unable to tell my name correctly and she was unable to tell me the day or the month correctly. She underwent hemodialysis yesterday and denies any dyspnea or chest pain. PHYSICAL EXAMINATION: VITALS: Temperature 96.9 degrees Fahrenheit, heart rate 60 per minute, respiratory rate 18 per minute, blood pressure 140/60 mmHg and oxygen saturation 95% on room air. HEENT: Head is atraumatic. Neck is supple and without JVD or thyroid enlargement. LUNGS: Clear to auscultation. HEART: Sounds are regular. ABDOMEN: Soft and nontender. Bowel sounds are normal. EXTREMITIES: Without any cyanosis or clubbing. NEUROLOGIC: She remains confused and disoriented. She was able to answer simple questions, however, she could not tell me the day or the month correctly. LABORATORY DATA: Her labs were reviewed yesterday and there are no new labs done today. PROBLEMS: 1. End-stage renal disease: Patient remains on dialysis three times a week and was dialyzed yesterday. Will plan next dialysis on Monday. 2. Hypertension: Blood pressure seems very well controlled and no changes are needed at this point. 3. Secondary hyperparathyroidism: Her PTH level is elevated and she remains on twice a week Cinacalcet. Will recheck her intake PTH level in a couple of weeks. 4. Anemia: She has end-stage renal disease and anemia is being managed with dialysis. At present, she is optimized. 5. History of atrial fibrillation: Heart rate is very well controlled and volume status is well compensated. Anticoagulation is being managed by the primary care team. 6. Altered mentation: Probably she has gradually worsening dementia and there is no focal deficit at present.
[2021-01-02 20:00] VITALS: BP 119/71
[2021-01-02] MEDS: SENNA 8.6 MG TAB (SENOKOT) PO SCH (21:20)
[2021-01-02] MEDS: QUEtiapine FUMARATE 25 MG TAB PO SCH (21:20)
[2021-01-03 05:25] VITALS: BP 151/74
[2021-01-03 07:07] LABS: INR 2.01; PROTHROMBIN TIME 23.2 SECONDS (12.5-14.3)
[2021-01-03] MEDS: DOCUSATE SODIUM 100MG CAPSULE PO SCH ×2 (08:15→21:30)
[2021-01-03] MEDS: PROPAFENONE 150 MG TAB PO SCH ×2 (08:15→21:29)
[2021-01-03] MEDS: CARVedilol 12.5 MG TAB PO SCH ×2 (08:16→21:30)
[2021-01-03] MEDS: PANTOPRAZOLE 40MG TAB (PROTONIX) PO SCH (08:16)
[2021-01-03] MEDS: TAMSULOSIN 0.4 MG CAP PO SCH (08:16)
[2021-01-03] MEDS: MUPIROCIN 2% OINT 22 GM TUBE TOP SCH ×2 (08:16→21:30)
[2021-01-03] MEDS: buPROPion 100 MG TAB PO SCH ×3 (08:16→21:29)
[2021-01-03] MEDS: REMEDY PHYTOPLEX Z-GUARD PASTE 113GM TUBE (FROM STOREROOM PRODUCT) TOP SCH ×3 (08:17→21:31)
--- NOTE | 2021-01-03 12:52 | IPN ---
NEPHROLOGY PROGRESS NOTE DATE: 01/03/2021 SUBJECTIVE: Ms. Santillan is seen this morning on her bedside. She just finished her physical therapy and is back in her room sitting in the chair. She is feeling better today and was able to tell my name after some difficulty. She was able to answer simple questions. Patient denies any nausea, vomiting, dyspnea or chest pain. PHYSICAL EXAMINATION: Temperature degrees 97 Fahrenheit, heart rate 68 per minute, respiratory rate 18 per minute, blood pressure 150/70 mmHg, oxygen saturation 97% on room air. HEAD: Atraumatic. NECK: Supple and without jugular venous distention (JVD) or thyroid enlargement. HEART SOUNDS: Regular. LUNGS: Clear to auscultation. ABDOMEN: Soft and nontender. Bowel sounds are normal. EXTREMITIES: Without any cyanosis or clubbing. NEUROLOGIC: She is still somewhat confused and disoriented, but was able to tell my name with some difficulty. LABORATORY STUDIES: Today's INR is 2.0. There are no other labs done today. PROBLEMS: 1. End-stage renal disease. Patient was dialyzed on Monday and will be scheduled for next dialysis tomorrow. Volume status is well-compensated and electrolytes have been stable. 2. Anemia. Her anemia has been stable and does not need any intervention. 3. Atrial fibrillation. INR is close to therapeutic range now and she remains on Coumadin. Ventricular rate is well-controlled. 4. Altered mentation. This is probably chronic and all workup has been negative so far for any acute stroke or infarction. 4. Secondary hyperparathyroidism. Patient remains on cinacalcet due to elevated intact PTH level. We will continue with the same management at this point. 5. Hypertension. Blood pressure is very well-controlled on current medication.
[2021-01-03 14:00] VITALS: BP 146/64
--- NOTE | 2021-01-03 16:42 | IPNPDOC ---
Text Note Date of Service The patient was seen on 01/03/21. NOTE Subjective: Patient stated that she is doing quite well. She states that she has a good progress in physical therapy Objective: Vitals (See below) General: Lying in bed, appears comfortable, AAOx3 HEENT: NC, AT CVS: +S1S2 Lungs: Fair air entry b/l, no appreciable wheezing / rhonchi / rales Abdomen: Soft, non-distended, non-tender Extremities: No evidence of Edema, - Calf tenderness Assessment and plan: Patient is a 70-year-old female with a PMHx of ESRD on HD ([facility]), who presented to the emergency room after frequent falls on 12/22. Upon arrival, patient was found to have an elevated INR and anemia. Nephrology was called on consultation, patient had received vitamin K to correct her elevated INR. Patient had received a single unit of PRBC transfusion on 12/23. Patient was ultimately transitioned to acute rehabilitation unit on 12/28 for further therapy Weakness and frequent falls - possibly 2/2 deconditioning and debility Continue physical therapy in ARU Macrocytic anemia Hemoglobin stable Follow-up with PCP in the outpatient settings for workup s/p Coagulopathy - likely 2/2 Coumadin Today INR in therapeutic range, continue Coumadin Atrial fibrillation Heart rate is under control - c/w rate / rhythm Carvedilol and Flecainide - c/w full anticoagulation with Coumadin ESRD on HD ([facility]) - Nephrology on consultation HTN - BP well controlled - c/w Carvedilol Secondary hyperparathyroidism Continues cinacalcet GERD - c/w Protonix End-stage renal disease Nephrology team follows her on HD ([facility]) DVT prophylaxis - c/w full anticoagulation with Coumadin VS,Fishbone, I+O VS, Fishbone, I+O Vital Signs Date Time Temp Pulse Resp B/P (MAP) Pulse Ox O2 Delivery O2 Flow Rate FiO2 01/03/21 14:00 97.8 68 18 146/64 (91) 96 Room Air I&O- Last 24 Hours up to 6 AM 01/03/21 06:00 Intake Total 890 ml Balance 890 ml ALBERTO DELONG DO Jan 03, 2021 16:42
[2021-01-03] MEDS: WARFARIN SOD 1MG TAB PO SCH (16:55)
--- NOTE | 2021-01-03 19:17 | IPNPDOC ---
PM&R Progress Note DATE OF SERVICE: Jan 01, 2021 Psychiatric Aide Instructor Progress Note Subective: Patient reporting she she is sleeping ok, denies fever, pain, and that her appetite is pretty good on rehab. REVIEW OF SYSTEMS: The following is a completed review of systems and has been reviewed. Review of systems otherwise unremarkable. PAIN: Patient self reports no pain EYES: No recent vision changes EARS, NOSE, & THROAT: No throat pain, or dysphagia, or rhinorrhea CARDIOVASCULAR: Denies chest pain or palpitations PULMONARY: Denies shortness of breath GASTROINTESTINAL: Denies constipation/diarrhea GENITOURINARY: denies dysuria MUSCULOSKELETAL: generalized weakness NEUROLOGICAL: bilat UE tremor (improving) HEMATOLOGICAL: +anemia SKIN: +sacral ulcer PSYCHIATRIC: +confused All other review of systems found to be negative. PHYSICAL EXAMINATION: VITAL SIGNS: Please see below. GENERAL: Pleasant and cooperative. No acute distress. HEENT: PERRL. Extraocular movements intact. Clear conjunctiva CARDIOVASCULAR: Regular rate and rhythm. No murmurs, rubs, or gallops LUNGS: Clear to auscultation bilaterally. No wheezes. No rhonchi ABDOMEN: Soft, nontender, nondistended. Positive bowel sounds. Normal active bowel sounds NEUROLOGICAL: Alert and oriented to self not time or place, able to follow directions, Cranial nerves II through XII grossly intact. Sensation grossly intact EXTREMITIES: 5-\5 strength bilateral upper extremities. 5-\5 strength right lower extremity. 5-/5 strength in left lower extremity. ASSESSMENT:70-year-old F with past medical history of ESRD who presents status post multiple falls with worsening weakness and confusion PLAN: 1. Rehab- PT/OT advance mobility and ADLs, strengthen/stretch/maintain ROM all 4limbs -SOCIAL WORK MSW eval for cog and swallow as patient taking meds crushed at this time and wish to see if safe to swallow pills whole 2. Neuro- encephalopathic with weakness etiology unclear -c/u off Megace which per daughter was restarted a few months ago due to poor po intake as can cause confusion and muscle weakness, will encourage po intake on the floor and see if she clears up cognitively and if muscle weakness improved -c/u to taper lower Wellbutrin as this may contributing to tremors which are still improving -neuro consults, recs appreciated, patient will be treated for Lewy Body dementia with Seroquel 25mg qHS -Zyprexa prn for agitation 3. CArdiac- hx of afib on Coumadin, daily PT/INRs, c/u rhythmol and Coreg- medicine consulted to assist in overall management -diastolic CHF c/u fluid restriction 4. Resp- monitor for infection 5. Renal- ESRD on HD, renal consulted -c/u flomax for urinary retention 6. Heme- anemia due to chronic disease s/p transfusions, renal managing 7. GI ppx- protonix 8. DVT ppx- on warfarin 9. Dispo- tbd Allergies Coded Allergies: Sulfa (Sulfonamide Antibiotics) (Verified Adverse Reaction, Intermediate, upset stomach, 06/27/19) Vital Signs Vital Signs Date Time Temp Pulse Resp B/P (MAP) Pulse Ox O2 Delivery O2 Flow Rate FiO2 01/03/21 14:00 97.8 68 18 146/64 (91) 96 Room Air Laboratory Data Labs 24H Laboratory Tests 2 01/03/21 06:23: Prothrombin Time 23.2H, Prothromb Time International Ratio 2.01 Current Medications Current Medications Current Medications Medications (Trade) Dose Ordered Sig/Eileen Route PRN Reason Start Time Stop Time Status Last Admin Dose Admin Acetaminophen (Tylenol Tab) 650 mg Q4HP PRN PO fever/MILD PAIN (PS 1-4) 12/28/20 16:10 Bupropion HCl (Wellbutrin Xl) 300 mg DAILY PO 12/29/20 09:00 12/29/20 10:05 DC 12/29/20 09:28 Bupropion HCl (Wellbutrin) 50 mg BID@1700,2200 PO 01/01/21 17:00 01/01/21 22:01 DC 01/01/21 22:38 Bupropion HCl (Wellbutrin) 50 mg TID PO 01/01/21 09:00 01/01/21 12:18 DC 01/01/21 11:54 Bupropion HCl (Wellbutrin) 50 mg TID PO 01/02/21 09:00 01/03/21 16:55 Bupropion HCl (Wellbutrin) 75 mg TID PO 12/29/20 16:00 01/01/21 09:30 DC 12/31/20 20:40 Bupropion HCl (Wellbutrin) 75 mg TID PO 12/30/20 16:00 12/29/20 15:39 DC Bupropion HCl (Wellbutrin) 100 mg TID PO 12/30/20 09:00 12/29/20 14:38 DC Carvedilol (COReg) 12.5 mg BID PO 12/28/20 21:00 01/03/21 08:16 Cinacalcet (Sensipar) 30 mg WeFr@0900 PO 01/01/21 09:00 01/01/21 09:47 Docusate Sodium (Colace) 100 mg BID PO 12/28/20 21:00 01/02/21 21:20 Heparin Sodium (Heparin) Please refer to ... ASDIRECTED XX 12/30/20 10:15 12/31/20 10:14 DC Heparin Sodium (Heparin) Please refer to ... ASDIRECTED XX 01/01/21 12:20 01/02/21 12:19 DC Iron (Venofer) 100 mg HD IV 12/30/20 11:25 01/01/21 11:26 DC 12/30/20 13:11 Iron (Venofer) 100 mg HD IV 01/01/21 13:10 01/01/21 13:27 Lidocaine HCl (Lidocaine 1% Sdv) 0.5 ml ASDIRECTED PRN SC SEE LABEL COMMENTS 12/30/20 10:15 12/31/20 10:14 DC Lidocaine HCl (Lidocaine 1% Sdv) 0.5 ml ASDIRECTED PRN SC SEE LABEL COMMENTS 01/01/21 12:20 01/02/21 12:19 DC Megestrol Acetate (Megace Acetate Suspension) 40 mg QID PO 12/29/20 09:49 12/29/20 14:38 DC Megestrol Acetate (Megace) 40 mg QID PO 12/28/20 17:00 12/29/20 09:18 DC 12/28/20 21:14 Megestrol Acetate (Megace) 40 mg QID PO 12/29/20 09:15 12/29/20 09:49 DC Mupirocin (Bactroban 2% Ointment) 1 dose BID TOP 12/28/20 21:00 01/03/21 08:16 Olanzapine (ZyPREXA) 2.5 mg Q6HP PRN PO AGITATION 12/29/20 15:00 Pantoprazole Sodium (Protonix) 40 mg DAILY PO 12/29/20 09:00 01/03/21 08:16 Polyethylene Glycol (Miralax) 1 pkt DAILY PRN PO CONSTIPATION 12/28/20 16:10 Propafenone HCl (Rythmol) 300 mg BID PO 12/28/20 21:00 01/03/21 08:15 Quetiapine Fumarate (SEROquel) 25 mg QHS PO 12/31/20 21:00 01/02/21 21:20 Senna (Senokot) 1 tab QHS PO 12/28/20 21:00 01/02/21 21:20 Sodium Chloride (Nacl 0.9%) 200 ml ASDIRECTED PRN IV SEE LABEL COMMENTS 12/30/20 10:15 12/31/20 10:14 DC Sodium Chloride (Nacl 0.9%) 200 ml ASDIRECTED PRN IV SEE LABEL COMMENTS 01/01/21 12:20 01/02/21 12:19 DC Tamsulosin HCl (Flomax) 0.4 mg DAILY PO 12/29/20 09:00 01/03/21 08:16 Warfarin Sodium (Coumadin) 1 mg DAILY@17 PO 12/30/20 17:00 01/03/21 16:55 Warfarin Sodium (Coumadin) 7.5 mg DAILY@17 PO 12/29/20 17:00 12/30/20 07:58 DC 12/29/20 17:04 LINA CASTILLO MD Jan 03, 2021 19:17
[2021-01-03 20:00] VITALS: BP 132/62
[2021-01-03] MEDS: QUEtiapine FUMARATE 25 MG TAB PO SCH (21:29)
[2021-01-03] MEDS: SENNA 8.6 MG TAB (SENOKOT) PO SCH (21:30)
[2021-01-04 06:00] VITALS: BP_SYST 126; BP_SYST 132; BP_DIAS 60; BP_DIAS 62
[2021-01-04] MEDS: CARVedilol 12.5 MG TAB PO SCH ×2 (09:00→21:02)
--- NOTE | 2021-01-04 09:33 | IPNPDOC ---
PM&R Progress Note DATE OF SERVICE: Jan 04, 2021 Energy Control Officer Progress Note Subective: Patient seen in dialysis stating her appetite is good in the hospital and that she thinks she has been hallucinating less. REVIEW OF SYSTEMS: The following is a completed review of systems and has been reviewed. Review of systems otherwise unremarkable. PAIN: Patient self reports no pain EYES: No recent vision changes EARS, NOSE, & THROAT: No throat pain, or dysphagia, or rhinorrhea CARDIOVASCULAR: Denies chest pain or palpitations PULMONARY: Denies shortness of breath GASTROINTESTINAL: Denies constipation/diarrhea GENITOURINARY: denies dysuria MUSCULOSKELETAL: generalized weakness NEUROLOGICAL: bilat UE tremor (improving) HEMATOLOGICAL: +anemia SKIN: +sacral ulcer PSYCHIATRIC: +confused All other review of systems found to be negative. PHYSICAL EXAMINATION: VITAL SIGNS: Please see below. GENERAL: Pleasant and cooperative. No acute distress. HEENT: PERRL. Extraocular movements intact. Clear conjunctiva CARDIOVASCULAR: Regular rate and rhythm. No murmurs, rubs, or gallops LUNGS: Clear to auscultation bilaterally. No wheezes. No rhonchi ABDOMEN: Soft, nontender, nondistended. Positive bowel sounds. Normal active bowel sounds NEUROLOGICAL: Alert and oriented to self not time or place, able to follow directions, Cranial nerves II through XII grossly intact. Sensation grossly intact EXTREMITIES: 5-\5 strength bilateral upper extremities. 5-\5 strength right lower extremity. 5-/5 strength in left lower extremity. ASSESSMENT:70-year-old F with past medical history of ESRD who presents status post multiple falls with worsening weakness and confusion PLAN: 1. Rehab- PT/OT advance mobility and ADLs, strengthen/stretch/maintain ROM all 4limbs -TRAFFIC SURVEY TECHNICIAN eval for cog and swallow as patient taking meds crushed at this time and wish to see if safe to swallow pills whole 2. Neuro- encephalopathic with weakness etiology unclear -c/u off Megace which per daughter was restarted a few months ago due to poor po intake as can cause confusion and muscle weakness, will encourage po intake on the floor and see if she clears up cognitively and if muscle weakness improved -c/u to taper lower Wellbutrin as this may contributing to tremors which are still improving -neuro consults, recs appreciated, patient will be treated for Lewy Body dementia with Seroquel 25mg qHS-hallucinations seem to be improving -Zyprexa prn for agitation 3. CArdiac- hx of afib on Coumadin, daily PT/INRs, c/u rhythmol and Coreg- medicine consulted to assist in overall management -diastolic CHF c/u fluid restriction 4. Resp- monitor for infection 5. Renal- ESRD on HD, renal consulted -c/u flomax for urinary retention 6. Heme- anemia due to chronic disease s/p transfusions, renal managing 7. GI ppx- protonix 8. DVT ppx- on warfarin 9. Dispo- tbd Allergies Coded Allergies: Sulfa (Sulfonamide Antibiotics) (Verified Adverse Reaction, Intermediate, upset stomach, 06/27/19) Vital Signs Vital Signs Date Time Temp Pulse Resp B/P (MAP) Pulse Ox O2 Delivery O2 Flow Rate FiO2 01/04/21 06:00 98.0 61 18 126/60 (82) 97 Room Air Current Medications Current Medications Current Medications Medications (Trade) Dose Ordered Sig/Eileen Route PRN Reason Start Time Stop Time Status Last Admin Dose Admin Acetaminophen (Tylenol Tab) 650 mg Q4HP PRN PO fever/MILD PAIN (PS 1-4) 12/28/20 16:10 Bupropion HCl (Wellbutrin Xl) 300 mg DAILY PO 12/29/20 09:00 12/29/20 10:05 DC 12/29/20 09:28 Bupropion HCl (Wellbutrin) 50 mg BID@1700,2200 PO 01/01/21 17:00 01/01/21 22:01 DC 01/01/21 22:38 Bupropion HCl (Wellbutrin) 50 mg TID PO 01/01/21 09:00 01/01/21 12:18 DC 01/01/21 11:54 Bupropion HCl (Wellbutrin) 50 mg TID PO 01/02/21 09:00 01/03/21 21:29 Bupropion HCl (Wellbutrin) 75 mg TID PO 12/29/20 16:00 01/01/21 09:30 DC 12/31/20 20:40 Bupropion HCl (Wellbutrin) 75 mg TID PO 12/30/20 16:00 12/29/20 15:39 DC Bupropion HCl (Wellbutrin) 100 mg TID PO 12/30/20 09:00 12/29/20 14:38 DC Carvedilol (COReg) 12.5 mg BID PO 12/28/20 21:00 01/03/21 21:30 Cinacalcet (Sensipar) 30 mg WeFr@0900 PO 01/01/21 09:00 01/01/21 09:47 Docusate Sodium (Colace) 100 mg BID PO 12/28/20 21:00 01/03/21 21:30 Heparin Sodium (Heparin) Please refer to ... ASDIRECTED XX 12/30/20 10:15 12/31/20 10:14 DC Heparin Sodium (Heparin) Please refer to ... ASDIRECTED XX 01/01/21 12:20 01/02/21 12:19 DC Iron (Venofer) 100 mg HD IV 12/30/20 11:25 01/01/21 11:26 DC 12/30/20 13:11 Iron (Venofer) 100 mg HD IV 01/01/21 13:10 01/01/21 13:27 Lidocaine HCl (Lidocaine 1% Sdv) 0.5 ml ASDIRECTED PRN SC SEE LABEL COMMENTS 12/30/20 10:15 12/31/20 10:14 DC Lidocaine HCl (Lidocaine 1% Sdv) 0.5 ml ASDIRECTED PRN SC SEE LABEL COMMENTS 01/01/21 12:20 01/02/21 12:19 DC Megestrol Acetate (Megace Acetate Suspension) 40 mg QID PO 12/29/20 09:49 12/29/20 14:38 DC Megestrol Acetate (Megace) 40 mg QID PO 12/28/20 17:00 12/29/20 09:18 DC 12/28/20 21:14 Megestrol Acetate (Megace) 40 mg QID PO 12/29/20 09:15 12/29/20 09:49 DC Mupirocin (Bactroban 2% Ointment) 1 dose BID TOP 12/28/20 21:00 01/03/21 21:30 Olanzapine (ZyPREXA) 2.5 mg Q6HP PRN PO AGITATION 12/29/20 15:00 Pantoprazole Sodium (Protonix) 40 mg DAILY PO 12/29/20 09:00 01/03/21 08:16 Polyethylene Glycol (Miralax) 1 pkt DAILY PRN PO CONSTIPATION 12/28/20 16:10 Propafenone HCl (Rythmol) 300 mg BID PO 12/28/20 21:00 01/03/21 21:29 Quetiapine Fumarate (SEROquel) 25 mg QHS PO 12/31/20 21:00 01/03/21 21:29 Senna (Senokot) 1 tab QHS PO 12/28/20 21:00 01/03/21 21:30 Sodium Chloride (Nacl 0.9%) 200 ml ASDIRECTED PRN IV SEE LABEL COMMENTS 12/30/20 10:15 12/31/20 10:14 DC Sodium Chloride (Nacl 0.9%) 200 ml ASDIRECTED PRN IV SEE LABEL COMMENTS 01/01/21 12:20 01/02/21 12:19 DC Tamsulosin HCl (Flomax) 0.4 mg DAILY PO 12/29/20 09:00 01/03/21 08:16 Warfarin Sodium (Coumadin) 1 mg DAILY@17 PO 12/30/20 17:00 01/03/21 19:09 DC 01/03/21 16:55 Warfarin Sodium (Coumadin) 2 mg DAILY@17 PO 01/04/21 17:00 Warfarin Sodium (Coumadin) 7.5 mg DAILY@17 PO 12/29/20 17:00 12/30/20 07:58 DC 12/29/20 17:04 LINA CASTILLO MD Jan 04, 2021 09:33
[2021-01-04] MEDS: TAMSULOSIN 0.4 MG CAP PO SCH (09:44)
[2021-01-04] MEDS: buPROPion 100 MG TAB PO SCH ×3 (09:45→21:01)
[2021-01-04] MEDS: PANTOPRAZOLE 40MG TAB (PROTONIX) PO SCH (09:46)
[2021-01-04] MEDS: MUPIROCIN 2% OINT 22 GM TUBE TOP SCH ×2 (09:46→21:00)
[2021-01-04] MEDS: DOCUSATE SODIUM 100MG CAPSULE PO SCH ×2 (09:46→21:00)
[2021-01-04] MEDS: PROPAFENONE 150 MG TAB PO SCH ×2 (09:46→21:01)
[2021-01-04] MEDS: REMEDY PHYTOPLEX Z-GUARD PASTE 113GM TUBE (FROM STOREROOM PRODUCT) TOP SCH ×3 (09:47→21:00)
[2021-01-04] MEDS: IRON SUCROSE 100MG 5ML VIAL (J1756 PER 1MG) IV SCH (12:57)
--- NOTE | 2021-01-04 13:56 | IPN ---
PROGRESS NOTE DATE: 01/04/2021 SUBJECTIVE: Ms. Santillan was seen this morning at her bedside. She is sitting in the chair working with her physical therapist. She denies any nausea, vomiting, dyspnea or chest pain. She has been somewhat confused and disoriented and speech therapist is currently working with her. OBJECTIVE: VITAL SIGNS: Temperature is 98.0 degrees Fahrenheit, heart rate is 54 per minute and respiratory rate is 18 per minute. Blood pressure is 121/57 mmHg and oxygen saturation was 97% on room air. HEAD: Atraumatic. NECK: Supple without JVD or thyroid enlargement. HEART: Heart sounds are regular. LUNGS: Clear to auscultation. ABDOMEN: Soft and nontender. Bowel sounds are normal. EXTREMITIES: Without any cyanosis or clubbing. NEUROLOGIC: She is awake and without any focal deficit. She does have some disorientation and confusion at times. LABORATORY DATA: She does not have any new labs today. PROBLEMS: 1. Endstage renal disease. Patient will be dialyzed this afternoon. Her volume status has been well-compensated and we will not remove any fluid today. 2. Anemia. Patient has stable anemia for which she does not need any intervention. 3. Generalized weakness and deconditioning. She continues with acute rehab. 4. Altered mentation with disorientation. Patient has probably underlying dementia which is gradually worsening. She is currently working with the speech therapist.
[2021-01-04 14:46] LABS: BASO # 0.1 10^3/uL (0.0-0.2); BASO % 0.9 % (0.0-1.0); EOS # 0.1 10^3/uL (0.0-0.5); EOS % 1.4 % (0.0-3.0); HEMATOCRIT 35.3 % (36.0-47.0); HEMOGLOBIN 11.4 g/dl (12.0-15.5); LYMPH % 11.2 % (24.0-44.0); MEAN CORPUSCULAR HEMOGLOBIN 31.2 pg (27.0-33.0); MEAN CORPUSCULAR HGB CONC 32.3 g/dl (32.0-36.5); MEAN CORPUSCULAR VOLUME 96.7 fl (80.0-96.0); MONO # 0.7 10^3/uL (0.0-0.8); NEUTROPHILS # 6.6 10^3/uL (1.5-8.5); PLATELET COUNT, AUTOMATED 234 10^3/uL (150-450); RED BLOOD COUNT 3.65 10^6/uL (4.00-5.40); WHITE BLOOD COUNT 8.5 10^3/uL (4.0-10.0)
--- NOTE | 2021-01-04 14:54 | IPNPDOC ---
Text Note Date of Service The patient was seen on 01/04/21. NOTE Subjective: Patient stated that she is doing quite well. She states that she is participating well in physical therapy Objective: Vitals (See below) General: Lying in bed, appears comfortable, AAOx3 HEENT: NC, AT CVS: +S1S2 Lungs: Fair air entry b/l, no appreciable wheezing / rhonchi / rales Abdomen: Soft, non-distended, non-tender Extremities: No evidence of Edema, - Calf tenderness Assessment and plan: Patient is a 70-year-old female with a PMHx of ESRD on HD ([facility]), who presented to the emergency room after frequent falls on 12/22. Upon arrival, patient was found to have an elevated INR and anemia. Nephrology was called on consultation, patient had received vitamin K to correct her elevated INR. Patient had received a single unit of PRBC transfusion on 12/23. Patient was ultimately transitioned to acute rehabilitation unit on 12/28 for further therapy Weakness and frequent falls - possibly 2/2 deconditioning and debility Continue physical therapy in ARU Macrocytic anemia Hemoglobin stable Follow-up with PCP in the outpatient settings for workup s/p Coagulopathy - likely 2/2 Coumadin Today INR in therapeutic range, continue Coumadin Atrial fibrillation Heart rate is under control - c/w rate / rhythm Carvedilol and Flecainide - c/w full anticoagulation with Coumadin ESRD on HD ([facility]) - Nephrology on consultation HTN - BP well controlled - c/w Carvedilol Secondary hyperparathyroidism Continues cinacalcet GERD - c/w Protonix End-stage renal disease Nephrology team follows her on HD ([facility]) DVT prophylaxis - c/w full anticoagulation with Coumadin VS,Fishbone, I+O VS, Fishbone, I+O Laboratory Tests 01/04/21 14:17 Vital Signs Date Time Temp Pulse Resp B/P (MAP) Pulse Ox O2 Delivery O2 Flow Rate FiO2 01/04/21 09:00 53 121/57 01/04/21 06:00 98.0 18 97 Room Air I&O- Last 24 Hours up to 6 AM 01/04/21 06:00 Intake Total 720 ml Balance 720 ml RAUL CASTAÑEDA MD Jan 04, 2021 14:53
[2021-01-04 15:08] LABS: CALCIUM LEVEL 9.6 MG/DL (8.8-10.2); CREATININE FOR GFR 3.18 MG/DL (0.55-1.30); GLOMERULAR FILTRATION RATE 15.4 (>39); POTASSIUM SERUM 3.7 MEQ/L (3.5-5.1)
[2021-01-04 15:38] LABS: INR 1.95; PROTHROMBIN TIME 22.7 SECONDS (12.5-14.3)
[2021-01-04 16:00] VITALS: BP 157/59
[2021-01-04] MEDS: WARFARIN SOD 2MG TAB PO SCH (17:03)
[2021-01-04 20:00] VITALS: BP 114/59
[2021-01-04] MEDS: SENNA 8.6 MG TAB (SENOKOT) PO SCH (21:00)
[2021-01-04] MEDS: QUEtiapine FUMARATE 25 MG TAB PO SCH (21:01)
[2021-01-05 06:00] VITALS: BP 126/62
[2021-01-05] MEDS: PROPAFENONE 150 MG TAB PO SCH ×2 (07:59→20:08)
[2021-01-05] MEDS: CARVedilol 12.5 MG TAB PO SCH ×2 (08:03→20:09)
[2021-01-05] MEDS: TAMSULOSIN 0.4 MG CAP PO SCH (08:03)
[2021-01-05] MEDS: DOCUSATE SODIUM 100MG CAPSULE PO SCH ×2 (08:03→20:08)
[2021-01-05] MEDS: PANTOPRAZOLE 40MG TAB (PROTONIX) PO SCH (08:03)
[2021-01-05] MEDS: buPROPion 100 MG TAB PO SCH ×3 (08:03→20:09)
[2021-01-05] MEDS: MUPIROCIN 2% OINT 22 GM TUBE TOP SCH (08:59)
[2021-01-05] MEDS: REMEDY PHYTOPLEX Z-GUARD PASTE 113GM TUBE (FROM STOREROOM PRODUCT) TOP SCH ×3 (09:00→20:09)
--- NOTE | 2021-01-05 10:00 | IPNPDOC ---
PM&R Progress Note DATE OF SERVICE: Jan 05, 2021 Asset Protection Specialist Progress Note Subective: Patient reporting she feels a little better and wondering about where she will go after her ARU stay. REVIEW OF SYSTEMS: The following is a completed review of systems and has been reviewed. Review of systems otherwise unremarkable. PAIN: Patient self reports no pain EYES: No recent vision changes EARS, NOSE, & THROAT: No throat pain, or dysphagia, or rhinorrhea CARDIOVASCULAR: Denies chest pain or palpitations PULMONARY: Denies shortness of breath GASTROINTESTINAL: Denies constipation/diarrhea GENITOURINARY: denies dysuria MUSCULOSKELETAL: generalized weakness NEUROLOGICAL: bilat UE tremor (improving) HEMATOLOGICAL: +anemia SKIN: +sacral ulcer PSYCHIATRIC: +confused All other review of systems found to be negative. PHYSICAL EXAMINATION: VITAL SIGNS: Please see below. GENERAL: Pleasant and cooperative. No acute distress. HEENT: PERRL. Extraocular movements intact. Clear conjunctiva CARDIOVASCULAR: Regular rate and rhythm. No murmurs, rubs, or gallops LUNGS: Clear to auscultation bilaterally. No wheezes. No rhonchi ABDOMEN: Soft, nontender, nondistended. Positive bowel sounds. Normal active bowel sounds NEUROLOGICAL: Alert and oriented to self and place, not time able to follow directions, Cranial nerves II through XII grossly intact. Sensation grossly intact EXTREMITIES: 5-\5 strength bilateral upper extremities. 5-\5 strength right lower extremity. 5-/5 strength in left lower extremity. ASSESSMENT:70-year-old F with past medical history of ESRD who presents status post multiple falls with worsening weakness and confusion PLAN: 1. Rehab- PT/OT advance mobility and ADLs, strengthen/stretch/maintain ROM all 4limbs -SPECIALTY DEVELOPMENT CONSULTANT eval for cog and swallow 2. Neuro- encephalopathic with weakness -c/u off Megace which per daughter was restarted a few months ago due to poor po intake as can cause confusion and muscle weakness-patient eating well and subjectively feels stronger while on ARU -c/u to taper lower Wellbutrin as this may contributing to tremors which are still improving -neuro consults, recs appreciated, patient being treated for Lewy Body dementia with Seroquel 25mg qHS-hallucinations seem to be improving -Zyprexa prn for agitation 3. CArdiac- hx of afib on Coumadin, daily PT/INRs, c/u rhythmol and Coreg- medicine consulted to assist in overall management -diastolic CHF c/u fluid restriction 4. Resp- monitor for infection 5. Renal- ESRD on HD, renal consulted -c/u flomax for urinary retention 6. Heme- anemia due to chronic disease s/p transfusions, renal managing 7. GI ppx- protonix 8. DVT ppx- on warfarin 9. Dispo- tbd Allergies Coded Allergies: Sulfa (Sulfonamide Antibiotics) (Verified Adverse Reaction, Intermediate, upset stomach, 06/27/19) Vital Signs Vital Signs Date Time Temp Pulse Resp B/P (MAP) Pulse Ox O2 Delivery O2 Flow Rate FiO2 01/05/21 08:03 61 123/58 01/05/21 06:00 97.9 18 97 01/04/21 06:00 Room Air Laboratory Data CBC/BMP Laboratory Tests 01/04/21 14:17 Labs 24H Laboratory Tests 2 01/04/21 14:17: Immature Granulocyte % (Auto) 0.5, Neutrophils (%) (Auto) 78.0H, Lymphocytes (%) (Auto) 11.2L, Monocytes (%) (Auto) 8.0, Eosinophils (%) (Auto) 1.4, Basophils (%) (Auto) 0.9, Neutrophils # (Auto) 6.6, Lymphocytes # (Auto) 1.0L, Monocytes # (Auto) 0.7, Eosinophils # (Auto) 0.1, Basophils # (Auto) 0.1, Nucleated Red B lood Cells % (auto) 0.0, Anion Gap 7L, Glomerular Filtration Rate 15.4L, Calcium Level 9.6 01/04/21 15:07: Prothrombin Time 22.7H, Prothromb Time International Ratio 1.95 Current Medications Current Medications Current Medications Medications (Trade) Dose Ordered Sig/Eileen Route PRN Reason Start Time Stop Time Status Last Admin Dose Admin Acetaminophen (Tylenol Tab) 650 mg Q4HP PRN PO fever/MILD PAIN (PS 1-4) 12/28/20 16:10 Bupropion HCl (Wellbutrin Xl) 300 mg DAILY PO 12/29/20 09:00 12/29/20 10:05 DC 12/29/20 09:28 Bupropion HCl (Wellbutrin) 50 mg BID@1700,2200 PO 01/01/21 17:00 01/01/21 22:01 DC 01/01/21 22:38 Bupropion HCl (Wellbutrin) 50 mg TID PO 01/01/21 09:00 01/01/21 12:18 DC 01/01/21 11:54 Bupropion HCl (Wellbutrin) 50 mg TID PO 01/02/21 09:00 01/05/21 08:03 Bupropion HCl (Wellbutrin) 75 mg TID PO 12/29/20 16:00 01/01/21 09:30 DC 12/31/20 20:40 Bupropion HCl (Wellbutrin) 75 mg TID PO 12/30/20 16:00 12/29/20 15:39 DC Bupropion HCl (Wellbutrin) 100 mg TID PO 12/30/20 09:00 12/29/20 14:38 DC Carvedilol (COReg) 12.5 mg BID PO 12/28/20 21:00 01/05/21 08:03 Cinacalcet (Sensipar) 30 mg WeFr@0900 PO 01/01/21 09:00 01/01/21 09:47 Docusate Sodium (Colace) 100 mg BID PO 12/28/20 21:00 01/05/21 08:03 Heparin Sodium (Heparin) Please refer to ... ASDIRECTED XX 12/30/20 10:15 12/31/20 10:14 DC Heparin Sodium (Heparin) Please refer to ... ASDIRECTED XX 01/01/21 12:20 01/02/21 12:19 DC Iron (Venofer) 100 mg HD IV 12/30/20 11:25 01/01/21 11:26 DC 12/30/20 13:11 Iron (Venofer) 100 mg HD IV 01/01/21 13:10 01/04/21 12:57 Lidocaine HCl (Lidocaine 1% Sdv) 0.5 ml ASDIRECTED PRN SC SEE LABEL COMMENTS 12/30/20 10:15 12/31/20 10:14 DC Lidocaine HCl (Lidocaine 1% Sdv) 0.5 ml ASDIRECTED PRN SC SEE LABEL COMMENTS 01/01/21 12:20 01/02/21 12:19 DC Megestrol Acetate (Megace Acetate Suspension) 40 mg QID PO 12/29/20 09:49 12/29/20 14:38 DC Megestrol Acetate (Megace) 40 mg QID PO 12/28/20 17:00 12/29/20 09:18 DC 12/28/20 21:14 Megestrol Acetate (Megace) 40 mg QID PO 12/29/20 09:15 12/29/20 09:49 DC Mupirocin (Bactroban 2% Ointment) 1 dose BID TOP 12/28/20 21:00 01/05/21 08:59 Olanzapine (ZyPREXA) 2.5 mg Q6HP PRN PO AGITATION 12/29/20 15:00 Pantoprazole Sodium (Protonix) 40 mg DAILY PO 12/29/20 09:00 01/05/21 08:03 Polyethylene Glycol (Miralax) 1 pkt DAILY PRN PO CONSTIPATION 12/28/20 16:10 Propafenone HCl (Rythmol) 300 mg BID PO 12/28/20 21:00 01/05/21 07:59 Quetiapine Fumarate (SEROquel) 25 mg QHS PO 12/31/20 21:00 01/04/21 21:01 Senna (Senokot) 1 tab QHS PO 12/28/20 21:00 01/03/21 21:30 Sodium Chloride (Nacl 0.9%) 200 ml ASDIRECTED PRN IV SEE LABEL COMMENTS 12/30/20 10:15 12/31/20 10:14 DC Sodium Chloride (Nacl 0.9%) 200 ml ASDIRECTED PRN IV SEE LABEL COMMENTS 01/01/21 12:20 01/02/21 12:19 DC Tamsulosin HCl (Flomax) 0.4 mg DAILY PO 12/29/20 09:00 01/05/21 08:03 Warfarin Sodium (Coumadin) 1 mg DAILY@17 PO 12/30/20 17:00 01/03/21 19:09 DC 01/03/21 16:55 Warfarin Sodium (Coumadin) 2 mg DAILY@17 PO 01/04/21 17:00 01/04/21 17:03 Warfarin Sodium (Coumadin) 7.5 mg DAILY@17 PO 12/29/20 17:00 12/30/20 07:58 DC 12/29/20 17:04 LINA CASTILLO MD Jan 05, 2021 10:00
[2021-01-05 10:54] LABS: INR 1.62; PROTHROMBIN TIME 19.6 SECONDS (12.5-14.3)
--- NOTE | 2021-01-05 12:39 | IPNPDOC ---
Text Note Date of Service The patient was seen on 01/05/21. NOTE Patient stated that she is doing quite well. Participating well in physical th randell Physical Examination: General: Lying in bed, appears comfortable, AAOx3 HEENT: NC, AT CVS: +S1S2 Lungs: Fair air entry b/l, no appreciable wheezing / rhonchi / rales Abdomen: Soft, non-distended, non-tender Extremities: No evidence of Edema, - Calf tenderness Assessment and plan: Patient is a 70-year-old female with a PMHx of ESRD on HD ([facility]), who presented to the emergency room after frequent falls on 12/22. Upon arrival, patient was found to have an elevated INR and anemia. Nephrology was called on consultation, patient had received vitamin K to correct her elevated INR. Patient had received a single unit of PRBC transfusion on 12/23. Patient was ultimately transitioned to acute rehabilitation unit on 12/28 for further therapy 1) Weakness and frequent falls - possibly 2/2 deconditioning and debility: Continue physical therapy in ARU 2)Macrocytic anemia. Hemoglobin stable. Follow-up with PCP in the outpatient settings for workup 3)Atrial fibrillation. Heart rate is under control, c/w rate / rhythm Carvedilol and Flecainide, c/w full anticoagulation with Coumadin, monitor INR 4)ESRD on HD ([facility]). Nephrology on consultation 5)HTN. BP well controlled, c/w Carvedilol 6)Secondary hyperparathyroidism. Continues cinacalcet DVT prophylaxis. c/w full anticoagulation with Coumadin Disposition as per primary VS,Moses, I+O VS, Moses, I+O Laboratory Tests 01/04/21 14:17 Vital Signs Date Time Temp Pulse Resp B/P (MAP) Pulse Ox O2 Delivery O2 Flow Rate FiO2 01/05/21 08:03 61 123/58 01/05/21 06:00 97.9 18 97 01/04/21 06:00 Room Air I&O- Last 24 Hours up to 6 AM 01/05/21 06:00 Intake Total 940 ml Output Total 400 ml Balance 540 ml RAUL CASTAÑEDA MD Jan 05, 2021 12:39
--- NOTE | 2021-01-05 13:35 | IPN ---
NEPHROLOGY PROGRESS NOTE DATE: 01/05/2021 SUBJECTIVE: Ms. Santillan is seen this morning at her bedside. She is laying in the bed today and reports feeling tired. She denies any nausea, vomiting, fever or chills. OBJECTIVE: PHYSICAL EXAMINATION: VITAL SIGNS: Temperature 97.9 degrees Fahrenheit, heart rate 60 per minute, respiratory rate 18, per minute, blood pressure 123/58 mm of mercury and oxygen saturation 97% on room air. HEENT: Head is atraumatic. NECK: Supple and without JVD or thyroid enlargement. HEART: Regular. LUNGS: Clear to auscultation. ABDOMEN: Soft and nontender and bowel sounds are normal. EXTREMITIES: Without any cyanosis or clubbing. LABORATORY STUDIES: Labs from yesterday afternoon are reviewed when sodium was 136 and potassium 3.7. BUN 20 and creatinine 3.18. Her hemoglobin was 11.4 and hematocrit 35.3. PROBLEMS: 1. End-stage renal disease - The patient was dialyzed yesterday and will be scheduled for next dialysis tomorrow. She tolerated her dialysis well. 2. Anemia her anemia is improved and stable and does not need any urgent intervention at present. 3. General weakness and deconditioning - The patient continues with acute rehab. 4. Altered mentation most likely related to chronic dementia and seems to be unchanged over the last couple of days. All in all, from a renal standpoint the patient is stable and will continue with hemodialysis three times a week.
[2021-01-05 14:00] VITALS: BP 146/65
[2021-01-05] MEDS: WARFARIN SOD 2MG TAB PO SCH (16:17)
[2021-01-05] MEDS: MIRALAX *UNIT DOSE* 17GM PACKET PO PRN (18:29)
[2021-01-05 20:00] VITALS: BP 130/51
[2021-01-05] MEDS: QUEtiapine FUMARATE 25 MG TAB PO SCH (20:08)
[2021-01-05] MEDS: SENNA 8.6 MG TAB (SENOKOT) PO SCH (20:08)
[2021-01-06 05:14] VITALS: BP 149/68
[2021-01-06 06:37] LABS: INR 1.46; PROTHROMBIN TIME 18.1 SECONDS (12.5-14.3)
[2021-01-06] MEDS: TAMSULOSIN 0.4 MG CAP PO SCH (08:49)
[2021-01-06] MEDS: buPROPion 100 MG TAB PO SCH ×2 (08:49→20:14)
[2021-01-06] MEDS: PANTOPRAZOLE 40MG TAB (PROTONIX) PO SCH (08:49)
[2021-01-06] MEDS: CINACALCET 30 MG TAB (SENSIPAR) PO SCH (08:50)
[2021-01-06] MEDS: PROPAFENONE 150 MG TAB PO SCH ×2 (08:50→20:14)
[2021-01-06] MEDS: DOCUSATE SODIUM 100MG CAPSULE PO SCH ×2 (08:50→20:16)
[2021-01-06] MEDS: CARVedilol 12.5 MG TAB PO SCH ×2 (08:50→20:16)
[2021-01-06] MEDS: REMEDY PHYTOPLEX Z-GUARD PASTE 113GM TUBE (FROM STOREROOM PRODUCT) TOP SCH ×3 (08:51→20:16)
[2021-01-06 09:03] VITALS: BP 164/72
--- NOTE | 2021-01-06 12:17 | IPNPDOC ---
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 Review of systems otherwise unremarkable. PAIN: Patient self reports no pain EYES: No recent vision changes EARS, NOSE, & THROAT: No throat pain, or dysphagia, or rhinorrhea CARDIOVASCULAR: Denies chest pain or palpitations PULMONARY: Denies shortness of breath GASTROINTESTINAL: Denies constipation/diarrhea GENITOURINARY: denies dysuria MUSCULOSKELETAL: generalized weakness NEUROLOGICAL: bilat UE tremor (improving) HEMATOLOGICAL: +anemia SKIN: +sacral ulcer PSYCHIATRIC: +confused All other review of systems found to be negative. PHYSICAL EXAMINATION: VITAL SIGNS: Please see below. GENERAL: Pleasant and cooperative. No acute distress. HEENT: PERRL. Extraocular movements intact. Clear conjunctiva CARDIOVASCULAR: Regular rate and rhythm. No murmurs, rubs, or gallops LUNGS: Clear to auscultation bilaterally. No wheezes. No rhonchi ABDOMEN: Soft, nontender, nondistended. Positive bowel sounds. Normal active bowel sounds NEUROLOGICAL: Alert and oriented to self and place, not time able to follow directions, Cranial nerves II through XII grossly intact. Sensation grossly intact EXTREMITIES: 5-\5 strength bilateral upper extremities. 5-\5 strength right lower extremity. 5-/5 strength in left lower extremity. ASSESSMENT:70-year-old F with past medical history of ESRD who presents status post multiple falls with worsening weakness and confusion PLAN: 1. Rehab- PT/OT advance mobility and ADLs, strengthen/stretch/maintain ROM all 4limbs -CAREER TECHNOLOGY TEACHER eval for cog and swallow 2. Neuro- encephalopathic with weakness -c/u off Megace which per daughter was restarted a few months ago due to poor po intake as can cause confusion and muscle weakness-patient eating well and subjectively feels stronger while on ARU -c/u to taper lower Wellbutrin, will lower from 50mg TUD to BID as this may contributing to tremors which are better -neuro consults, recs appreciated, patient being treated for Lewy Body dementia with Seroquel 25mg qHS-hallucinations seem to be improving -Zyprexa prn for agitation 3. CArdiac- hx of afib on Coumadin, daily PT/INRs, c/u rhythmol and Coreg- medicine consulted to assist in overall management -diastolic CHF c/u fluid restriction 4. Resp- monitor for infection 5. Renal- ESRD on HD, renal consulted -c/u flomax for urinary retention 6. Heme- anemia due to chronic disease s/p transfusions, renal managing 7. GI ppx- protonix 8. DVT ppx- on warfarin 9. Dispo- tbd Allergies Coded Allergies: Sulfa (Sulfonamide Antibiotics) (Verified Adverse Reaction, Intermediate, upset stomach, 06/27/19) Vital Signs Vital Signs Date Time Temp Pulse Resp B/P (MAP) Pulse Ox O2 Delivery O2 Flow Rate FiO2 01/06/21 08:50 59 01/06/21 05:14 97.8 19 149/68 (95) 98 Room Air Laboratory Data Labs 24H Laboratory Tests 2 01/06/21 05:15: Prothrombin Time 18.1H, Prothromb Time International Ratio 1.46 Current Medications Current Medications Current Medications Medications (Trade) Dose Ordered Sig/Eileen Route PRN Reason Start Time Stop Time Status Last Admin Dose Admin Acetaminophen (Tylenol Tab) 650 mg Q4HP PRN PO fever/MILD PAIN (PS 1-4) 12/28/20 16:10 Bupropion HCl (Wellbutrin Xl) 300 mg DAILY PO 12/29/20 09:00 12/29/20 10:05 DC 12/29/20 09:28 Bupropion HCl (Wellbutrin) 50 mg BID@1700,2200 PO 01/01/21 17:00 01/01/21 22:01 DC 01/01/21 22:38 Bupropion HCl (Wellbutrin) 50 mg TID PO 01/01/21 09:00 01/01/21 12:18 DC 01/01/21 11:54 Bupropion HCl (Wellbutrin) 50 mg TID PO 01/02/21 09:00 01/06/21 08:49 Bupropion HCl (Wellbutrin) 75 mg TID PO 12/29/20 16:00 01/01/21 09:30 DC 12/31/20 20:40 Bupropion HCl (Wellbutrin) 75 mg TID PO 12/30/20 16:00 12/29/20 15:39 DC Bupropion HCl (Wellbutrin) 100 mg TID PO 12/30/20 09:00 12/29/20 14:38 DC Carvedilol (COReg) 12.5 mg BID PO 12/28/20 21:00 01/05/21 20:09 Cinacalcet (Sensipar) 30 mg WeFr@0900 PO 01/01/21 09:00 01/06/21 08:50 Docusate Sodium (Colace) 100 mg BID PO 12/28/20 21:00 01/06/21 08:50 Heparin Sodium (Heparin) Please refer to ... ASDIRECTED XX 12/30/20 10:15 12/31/20 10:14 DC Heparin Sodium (Heparin) Please refer to ... ASDIRECTED XX 01/01/21 12:20 01/02/21 12:19 DC Iron (Venofer) 100 mg HD IV 12/30/20 11:25 01/01/21 11:26 DC 12/30/20 13:11 Iron (Venofer) 100 mg HD IV 01/01/21 13:10 01/04/21 12:57 Lidocaine HCl (Lidocaine 1% Sdv) 0.5 ml ASDIRECTED PRN SC SEE LABEL COMMENTS 12/30/20 10:15 12/31/20 10:14 DC Lidocaine HCl (Lidocaine 1% Sdv) 0.5 ml ASDIRECTED PRN SC SEE LABEL COMMENTS 01/01/21 12:20 01/02/21 12:19 DC Megestrol Acetate (Megace Acetate Suspension) 40 mg QID PO 12/29/20 09:49 12/29/20 14:38 DC Megestrol Acetate (Megace) 40 mg QID PO 12/28/20 17:00 12/29/20 09:18 DC 12/28/20 21:14 Megestrol Acetate (Megace) 40 mg QID PO 12/29/20 09:15 12/29/20 09:49 DC Mupirocin (Bactroban 2% Ointment) 1 dose BID TOP 12/28/20 21:00 01/05/21 16:04 DC 01/05/21 08:59 Olanzapine (ZyPREXA) 2.5 mg Q6HP PRN PO AGITATION 12/29/20 15:00 Pantoprazole Sodium (Protonix) 40 mg DAILY PO 12/29/20 09:00 01/06/21 08:49 Polyethylene Glycol (Miralax) 1 pkt DAILY PRN PO CONSTIPATION 12/28/20 16:10 01/05/21 18:29 Propafenone HCl (Rythmol) 300 mg BID PO 12/28/20 21:00 01/06/21 08:50 Quetiapine Fumarate (SEROquel) 25 mg QHS PO 12/31/20 21:00 01/05/21 20:08 Senna (Senokot) 1 tab QHS PO 12/28/20 21:00 01/05/21 20:08 Sodium Chloride (Nacl 0.9%) 200 ml ASDIRECTED PRN IV SEE LABEL COMMENTS 12/30/20 10:15 12/31/20 10:14 DC Sodium Chloride (Nacl 0.9%) 200 ml ASDIRECTED PRN IV SEE LABEL COMMENTS 01/01/21 12:20 01/02/21 12:19 DC Tamsulosin HCl (Flomax) 0.4 mg DAILY PO 12/29/20 09:00 01/06/21 08:49 Warfarin Sodium (Coumadin) 1 mg DAILY@17 PO 12/30/20 17:00 01/03/21 19:09 DC 01/03/21 16:55 Warfarin Sodium (Coumadin) 2 mg DAILY@17 PO 01/04/21 17:00 01/05/21 16:17 Warfarin Sodium (Coumadin) 7.5 mg DAILY@17 PO 12/29/20 17:00 12/30/20 07:58 DC 12/29/20 17:04 LINA CASTILLO MD Jan 06, 2021 12:17
[2021-01-06] MEDS: IRON SUCROSE 100MG 5ML VIAL (J1756 PER 1MG) IV SCH (13:04)
[2021-01-06 14:00] VITALS: BP 167/67
[2021-01-06] MEDS ORDERED: WARFARIN SOD 5MG TAB PO SCH (17:00)
--- NOTE | 2021-01-06 17:11 | IPNPDOC ---
Text Note Date of Service The patient was seen on 01/06/21. NOTE Patient stated that she is doing quite well. Participating well in physical therapy Physical Examination: General: Lying in bed, appears comfortable, AAOx3 HEENT: NC, AT CVS: +S1S2 Lungs: Fair air entry b/l, no appreciable wheezing / rhonchi / rales Abdomen: Soft, non-distended, non-tender Extremities: No evidence of Edema, - Calf tenderness Assessment and plan: Patient is a 70-year-old female with a PMHx of ESRD on HD ([facility]), who presented to the emergency room after frequent falls on 12/22. Upon arrival, patient was found to have an elevated INR and anemia. Nephrology was called on consultation, patient had received vitamin K to correct her elevated INR. Patient had received a single unit of PRBC transfusion on 12/23. Patient was ultimately transitioned to acute rehabilitation unit on 12/28 for further therapy 1) Weakness and frequent falls - possibly 2/2 deconditioning and debility: Continue physical therapy in ARU 2)Macrocytic anemia. Hemoglobin stable. Follow-up with PCP in the outpatient settings for workup 3)Atrial fibrillation. Heart rate is under control, c/w rate / rhythm Carvedilol and Flecainide, c/w full anticoagulation with Coumadin, monitor INR 4)ESRD on HD (F). Nephrology on consultation 5)HTN. BP well controlled, c/w Carvedilol 6)Secondary hyperparathyroidism. Continues cinacalcet DVT prophylaxis. c/w full anticoagulation with Coumadin Disposition as per primary VS,Fishbone, I+O VS, Fishbone, I+O Vital Signs Date Time Temp Pulse Resp B/P (MAP) Pulse Ox O2 Delivery O2 Flow Rate FiO2 01/06/21 14:00 97.5 62 18 167/67 (100) 99 Room Air I&O- Last 24 Hours up to 6 AM 01/06/21 06:00 Intake Total 440 ml Balance 440 ml RAUL CASTAÑEDA MD Jan 06, 2021 17:11
[2021-01-06 18:00] VITALS: BP 139/65
--- NOTE | 2021-01-06 19:15 | REPVR ---
PROCEDURE INFORMATION: Exam: CT Head Without Contrast Exam date and time: 01/06/2021 6:46 PM Age: 70 years old Clinical indication: Injury or trauma; Fall; Blunt trauma (contusions or hematomas); Additional info: R/O acute bleed following fall TECHNIQUE: Imaging protocol: Computed tomography of the head without contrast. Radiation optimization: All CT scans at this facility use at least one of these dose optimization techniques: automated exposure control; mA and/or kV adjustment per patient size (includes targeted exams where dose is matched to clinical indication); or iterative reconstruction. COMPARISON: CT Head without contrast 12/22/2020 5:48 PM FINDINGS: Brain: The brain demonstrates diffuse volume loss. There is white matter hypodensity most consistent with chronic small vessel ischemic change. No visible evolving territorial infarct. No hemorrhage. Focal hypodensities again demonstrated in the left lentiform nucleus and external capsule consistent with perivascular spaces or old lacunar infarcts. Cerebral ventricles: The ventricles are enlarged in keeping with volume loss. Stable. Bones/joints: Unremarkable. No acute fracture. Paranasal sinuses: Visualized sinuses are unremarkable. No fluid levels. Mastoid air cells: Visualized mastoid air cells are well aerated. Soft tissues: Unremarkable. IMPRESSION: No acute intracranial abnormality seen. Electronically signed by: Carmen Caro On 01/06/2021 19:15:09 PM
[2021-01-06 20:00] VITALS: BP 138/63
[2021-01-06] MEDS: SENNA 8.6 MG TAB (SENOKOT) PO SCH (20:14)
[2021-01-06] MEDS: QUEtiapine FUMARATE 25 MG TAB PO SCH (20:16)
[2021-01-07 06:00] VITALS: BP 130/61
[2021-01-07 06:12] LABS: INR 1.41; PROTHROMBIN TIME 17.6 SECONDS (12.5-14.3)
--- NOTE | 2021-01-07 07:34 | IPNPDOC ---
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 She understands she will need more assistance at home, but does not have it. REVIEW OF SYSTEMS: The following is a completed review of systems and has been reviewed. Review of systems otherwise unremarkable. PAIN: Patient self reports no pain EYES: No recent vision changes EARS, NOSE, & THROAT: No throat pain, or dysphagia, or rhinorrhea CARDIOVASCULAR: Denies chest pain or palpitations PULMONARY: Denies shortness of breath GASTROINTESTINAL: Denies constipation/diarrhea GENITOURINARY: denies dysuria MUSCULOSKELETAL: generalized weakness NEUROLOGICAL: bilat UE tremor (improving) HEMATOLOGICAL: +anemia SKIN: +sacral ulcer PSYCHIATRIC: +confused All other review of systems found to be negative. PHYSICAL EXAMINATION: VITAL SIGNS: Please see below. GENERAL: Pleasant and cooperative. No acute distress. HEENT: PERRL. Extraocular movements intact. Clear conjunctiva CARDIOVASCULAR: Regular rate and rhythm. No murmurs, rubs, or gallops LUNGS: Clear to auscultation bilaterally. No wheezes. No rhonchi ABDOMEN: Soft, nontender, nondistended. Positive bowel sounds. Normal active bowel sounds NEUROLOGICAL: Alert and oriented to self and place, not time able to follow directions, Cranial nerves II through XII grossly intact. Sensation grossly intact EXTREMITIES: 5-\5 strength bilateral upper extremities. 5-\5 strength right lower extremity. 5-/5 strength in left lower extremity. ASSESSMENT:70-year-old F with past medical history of ESRD who presents status post multiple falls with worsening weakness and confusion PLAN: 1. 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 Neuro- encephalopathic with weakness -c/u off Megace which per daughter was restarted a few months ago due to poor po intake as can cause confusion and muscle weakness-patient eating well and subjectively feels stronger while on ARU -c/u to taper Wellbutrin, will lower from 50mg TUD to BID as this may contributing to tremors which are better -neuro consults, recs appreciated, patient being treated for Lewy Body dementia with Seroquel 25mg qHS-hallucinations seem to be improving -Zyprexa prn for agitation 3. CArdiac- hx of afib on Coumadin, daily PT/INRs, c/u rhythmol and Coreg- medicine consulted to assist in overall management -diastolic CHF c/u fluid restriction 4. Resp- monitor for infection 5. Renal- ESRD on HD, renal consulted -c/u flomax for urinary retention 6. Heme- anemia due to chronic disease s/p transfusions, renal managing 7. GI ppx- protonix 8. DVT ppx- on warfarin 9. Dispo- tbd Allergies Coded Allergies: Sulfa (Sulfonamide Antibiotics) (Verified Adverse Reaction, Intermediate, upset stomach, 06/27/19) Vital Signs Vital Signs Date Time Temp Pulse Resp B/P (MAP) Pulse Ox O2 Delivery O2 Flow Rate FiO2 01/07/21 06:00 96.3 60 18 130/61 (84) 99 Room Air Laboratory Data Labs 24H Laboratory Tests 2 01/07/21 05:13: Prothrombin Time 17.6H, Prothromb Time International Ratio 1.41 Current Medications Current Medications Current Medications Medications (Trade) Dose Ordered Sig/Eileen Route PRN Reason Start Time Stop Time Status Last Admin Dose Admin Acetaminophen (Tylenol Tab) 650 mg Q4HP PRN PO fever/MILD PAIN (PS 1-4) 12/28/20 16:10 Bupropion HCl (Wellbutrin Xl) 300 mg DAILY PO 12/29/20 09:00 12/29/20 10:05 DC 12/29/20 09:28 Bupropion HCl (Wellbutrin) 50 mg BID PO 01/06/21 21:00 01/06/21 20:14 Bupropion HCl (Wellbutrin) 50 mg BID@1700,2200 PO 01/01/21 17:00 01/01/21 22:01 DC 01/01/21 22:38 Bupropion HCl (Wellbutrin) 50 mg TID PO 01/01/21 09:00 01/01/21 12:18 DC 01/01/21 11:54 Bupropion HCl (Wellbutrin) 50 mg TID PO 01/02/21 09:00 01/06/21 13:54 DC 01/06/21 08:49 Bupropion HCl (Wellbutrin) 75 mg TID PO 12/29/20 16:00 01/01/21 09:30 DC 12/31/20 20:40 Bupropion HCl (Wellbutrin) 75 mg TID PO 12/30/20 16:00 12/29/20 15:39 DC Bupropion HCl (Wellbutrin) 100 mg TID PO 12/30/20 09:00 12/29/20 14:38 DC Carvedilol (COReg) 12.5 mg BID PO 12/28/20 21:00 01/06/21 20:16 Cinacalcet (Sensipar) 30 mg WeFr@0900 PO 01/01/21 09:00 01/06/21 08:50 Docusate Sodium (Colace) 100 mg BID PO 12/28/20 21:00 01/06/21 20:16 Heparin Sodium (Heparin) Please refer to ... ASDIRECTED XX 12/30/20 10:15 12/31/20 10:14 DC Heparin Sodium (Heparin) Please refer to ... ASDIRECTED XX 01/01/21 12:20 01/02/21 12:19 DC Iron (Venofer) 100 mg HD IV 12/30/20 11:25 01/01/21 11:26 DC 12/30/20 13:11 Iron (Venofer) 100 mg HD IV 01/01/21 13:10 01/06/21 13:04 Lidocaine HCl (Lidocaine 1% Sdv) 0.5 ml ASDIRECTED PRN SC SEE LABEL COMMENTS 12/30/20 10:15 12/31/20 10:14 DC Lidocaine HCl (Lidocaine 1% Sdv) 0.5 ml ASDIRECTED PRN SC SEE LABEL COMMENTS 01/01/21 12:20 01/02/21 12:19 DC Megestrol Acetate (Megace Acetate Suspension) 40 mg QID PO 12/29/20 09:49 12/29/20 14:38 DC Megestrol Acetate (Megace) 40 mg QID PO 12/28/20 17:00 12/29/20 09:18 DC 12/28/20 21:14 Megestrol Acetate (Megace) 40 mg QID PO 12/29/20 09:15 12/29/20 09:49 DC Mupirocin (Bactroban 2% Ointment) 1 dose BID TOP 12/28/20 21:00 01/05/21 16:04 DC 01/05/21 08:59 Olanzapine (ZyPREXA) 2.5 mg Q6HP PRN PO AGITATION 12/29/20 15:00 Pantoprazole Sodium (Protonix) 40 mg DAILY PO 12/29/20 09:00 01/06/21 08:49 Polyethylene Glycol (Miralax) 1 pkt DAILY PRN PO CONSTIPATION 12/28/20 16:10 01/05/21 18:29 Propafenone HCl (Rythmol) 300 mg BID PO 12/28/20 21:00 01/06/21 20:14 Quetiapine Fumarate (SEROquel) 25 mg QHS PO 12/31/20 21:00 01/06/21 20:16 Senna (Senokot) 1 tab QHS PO 12/28/20 21:00 01/06/21 20:14 Sodium Chloride (Nacl 0.9%) 200 ml ASDIRECTED PRN IV SEE LABEL COMMENTS 12/30/20 10:15 12/31/20 10:14 DC Sodium Chloride (Nacl 0.9%) 200 ml ASDIRECTED PRN IV SEE LABEL COMMENTS 01/01/21 12:20 01/02/21 12:19 DC Tamsulosin HCl (Flomax) 0.4 mg DAILY PO 12/29/20 09:00 01/06/21 08:49 Warfarin Sodium (Coumadin) 1 mg DAILY@17 PO 12/30/20 17:00 01/03/21 19:09 DC 01/03/21 16:55 Warfarin Sodium (Coumadin) 2 mg DAILY@17 PO 01/04/21 17:00 01/06/21 12:17 DC 01/05/21 16:17 Warfarin Sodium (Coumadin) 5 mg DAILY@17 PO 01/06/21 17:00 01/06/21 16:21 Warfarin Sodium (Coumadin) 7.5 mg DAILY@17 PO 12/29/20 17:00 12/30/20 07:58 DC 12/29/20 17:04 LINA CASTILLO MD Jan 07, 2021 07:34
[2021-01-07] MEDS: PROPAFENONE 150 MG TAB PO SCH ×2 (07:44→20:37)
[2021-01-07] MEDS: DOCUSATE SODIUM 100MG CAPSULE PO SCH ×2 (07:44→20:36)
[2021-01-07] MEDS: buPROPion 100 MG TAB PO SCH ×2 (07:45→20:37)
[2021-01-07] MEDS: PANTOPRAZOLE 40MG TAB (PROTONIX) PO SCH (07:45)
[2021-01-07] MEDS: TAMSULOSIN 0.4 MG CAP PO SCH (07:45)
[2021-01-07] MEDS: CARVedilol 12.5 MG TAB PO SCH ×2 (07:46→20:37)
[2021-01-07] MEDS: REMEDY PHYTOPLEX Z-GUARD PASTE 113GM TUBE (FROM STOREROOM PRODUCT) TOP SCH ×3 (07:46→20:38)
--- NOTE | 2021-01-07 10:23 | IPNPDOC ---
Text Note Date of Service The patient was seen on 01/07/21. NOTE Patient stated that she is doing quite well. Physical Examination: General: Lying in bed, appears comfortable, AAOx3 HEENT: NC, AT CVS: +S1S2 Lungs: Fair air entry b/l, no appreciable wheezing / rhonchi / rales Abdomen: Soft, non-distended, non-tender Extremities: No evidence of Edema, - Calf tenderness Assessment and plan: Patient is a 70-year-old female with a PMHx of ESRD on HD ([facility]), who presented to the emergency room after frequent falls on 12/22. Upon arrival, patient was found to have an elevated INR and anemia. Nephrology was called on consultation, patient had received vitamin K to correct her elevated INR. Tien brooks had received a single unit of PRBC transfusion on 12/23. Patient was ultimately transitioned to acute rehabilitation unit on 12/28 for further therapy 1) Weakness and frequent falls - possibly 2/2 deconditioning and debility: Continue physical therapy in ARU 2)Macrocytic anemia. Hemoglobin stable. Follow-up with PCP in the outpatient settings for workup 3)Atrial fibrillation. Heart rate is under control, c/w rate / rhythm Carvedilol and Flecainide, c/w full anticoagulation with Coumadin, monitor INR which is subbtheraupatic. Pharmacy dosing. 4)ESRD on HD ([facility]). Nephrology on consultation 5)HTN. BP well controlled, c/w Carvedilol 6)Secondary hyperparathyroidism. Continues cinacalcet DVT prophylaxis. c/w full anticoagulation with Coumadin Disposition as per primary VS,Moses, I+O VS, Moses, I+O Vital Signs Date Time Temp Pulse Resp B/P (MAP) Pulse Ox O2 Delivery O2 Flow Rate FiO2 01/07/21 07:46 68 130/60 01/07/21 06:00 96.3 18 99 Room Air I&O- Last 24 Hours up to 6 AM 01/07/21 06:00 Intake Total 560 ml Output Total 1000 ml Balance -440 ml RAUL CASTAÑEDA MD Jan 07, 2021 10:23
--- NOTE | 2021-01-07 12:43 | REP ---
INDICATION: s/p fall on 01/06/21 on warfarin, r/o bleed. COMPARISON: Comparison head CT studies are reviewed dated January 06, 2021, December 22, 2020, and July 31, 2020.. TECHNIQUE: Helical scanning is acquired. 5 mm axial images were reformatted. Coronal MPR images were generated. FINDINGS: Bone window settings demonstrate an intact bony calvarium. There is no evidence of skull fracture or incidental bony calvarial lesion. The visualized paranasal sinuses appear clear. No intraorbital abnormality is seen. On soft tissue window setting images; the lateral, third, and fourth ventricles are normal in size and position. Generalized volume loss is again noted. Small-vessel atherosclerotic changes are visible in the periventricular white matter bilaterally also unchanged. No extra-axial fluid collection is developed. There is no evidence of intracranial hemorrhage or acute infarction. No mass or midline shift is seen. IMPRESSION: Generalized volume loss and small vessel changes again noted. Stable CT findings. No acute intracranial abnormality.. <Electronically signed by Stan Brown > 01/07/21 [id number]
[2021-01-07 14:00] VITALS: BP 134/64
[2021-01-07] MEDS ORDERED: WARFARIN SOD 5MG TAB PO ONE (17:00)
[2021-01-07 20:10] VITALS: BP 141/70
[2021-01-07] MEDS: QUEtiapine FUMARATE 25 MG TAB PO SCH (20:37)
[2021-01-07] MEDS: SENNA 8.6 MG TAB (SENOKOT) PO SCH (20:37)
[2021-01-08 06:07] LABS: BASO # 0.1 10^3/uL (0.0-0.2); BASO % 1.5 % (0.0-1.0); EOS # 0.1 10^3/uL (0.0-0.5); EOS % 1.5 % (0.0-3.0); HEMATOCRIT 36.6 % (36.0-47.0); HEMOGLOBIN 11.6 g/dl (12.0-15.5); LYMPH # 1.3 10^3/uL (1.5-5.0); LYMPH % 21.3 % (24.0-44.0); MEAN CORPUSCULAR HEMOGLOBIN 31.4 pg (27.0-33.0); MEAN CORPUSCULAR HGB CONC 31.7 g/dl (32.0-36.5); MEAN CORPUSCULAR VOLUME 98.9 fl (80.0-96.0); MONO # 0.6 10^3/uL (0.0-0.8); MONO % 9.9 % (2.0-8.0); NEUTROPHILS % 65.5 % (36.0-66.0); PLATELET COUNT, AUTOMATED 228 10^3/uL (150-450); WHITE BLOOD COUNT 6.1 10^3/uL (4.0-10.0)
[2021-01-08 06:11] VITALS: BP 151/78
[2021-01-08 06:24] LABS: INR 1.55; PROTHROMBIN TIME 18.9 SECONDS (12.5-14.3)
[2021-01-08 06:33] LABS: CALCIUM LEVEL 9.9 MG/DL (8.8-10.2); CREATININE FOR GFR 5.84 MG/DL (0.55-1.30); GLOMERULAR FILTRATION RATE 7.6 (>39); POTASSIUM SERUM 5.1 MEQ/L (3.5-5.1)
[2021-01-08] MEDS: TAMSULOSIN 0.4 MG CAP PO SCH (07:56)
[2021-01-08] MEDS: CINACALCET 30 MG TAB (SENSIPAR) PO SCH (07:56)
[2021-01-08] MEDS: PANTOPRAZOLE 40MG TAB (PROTONIX) PO SCH (07:56)
[2021-01-08] MEDS: CARVedilol 12.5 MG TAB PO SCH ×2 (07:56→20:11)
[2021-01-08] MEDS: DOCUSATE SODIUM 100MG CAPSULE PO SCH ×2 (07:56→20:11)
[2021-01-08] MEDS: PROPAFENONE 150 MG TAB PO SCH ×2 (07:56→20:10)
[2021-01-08] MEDS: buPROPion 100 MG TAB PO SCH ×2 (07:57→20:10)
[2021-01-08] MEDS: REMEDY PHYTOPLEX Z-GUARD PASTE 113GM TUBE (FROM STOREROOM PRODUCT) TOP SCH ×3 (07:58→20:11)
--- NOTE | 2021-01-08 08:09 | IPN ---
PROGRESS NOTE DATE: 01/06/2021 Ms. Santillan is seen this morning on her bedside. She is lying in the bed comfortably and denies any acute distress. She remains confused and disoriented and could not tell me the day correctly and could not tell me if she had dialysis yesterday. She denies any dyspnea, chest pain, nausea, or vomiting. PHYSICAL EXAMINATION: Temperature 97.5 degrees Fahrenheit, heart rate 60 per minute, respiratory rate 18 per minute, blood pressure 149/ __ mmHg, and oxygen saturation 98% on room air. Head is atraumatic. Neck supple and without jugular venous distention (JVD) or thyroid enlargement. Heart sounds are regular and lungs clear to auscultation. Abdomen soft and nontender, and bowel sounds are normal. Extremities without any cyanosis or clubbing. Right forearm arteriovenous (AV) fistula is patent. Neurologically, she remains confused and disoriented. PROBLEMS: 1. End-stage renal disease. Patient is regularly dialyzed on Monday, Monday, and Monday schedule. She was last dialyzed on Monday, and we will schedule her next dialysis for this afternoon. 2. Altered mentation. This is most likely chronic dementia, which is essentially unchanged over last several days. 3. Anemia. Her anemia is optimally corrected and does not need any urgent intervention. 4. Hypertension. Blood pressure has been reasonably well controlled. 5. Generalized weakness and deconditioning. Patient is making some progress with rehabilitation.
--- NOTE | 2021-01-08 08:12 | IPN ---
"PROGRESS NOTE DATE: 01/07/2021 SUBJECTIVE: Mrs. Santillan is seen this morning on her bedside. She is laying in the bed at the time of my visit. She is very confused and disoriented and talking about her job while I know that she has not been working for a while. She does not recall when her last dialysis was. PHYSICAL EXAMINATION: VITALS: Temperature 96.3 degrees Fahrenheit, heart rate 68 per minute, respiratory rate 18 per minute, blood pressure 130/60 mmHg, oxygen saturation 91 to 99% on room air. HEENT: Head atraumatic. Neck supple and without JVD or thyroid enlargement. LUNGS: Clear to auscultation. HEART: Sounds are regular. ABDOMEN: Soft and nontender. Bowel sounds are normal. EXTREMITIES: Without any cyanosis or clubbing. NEUROLOGIC: She remains confused and disoriented. |PROBLEMS: 1. End-stage renal disease: Patient was dialyzed yesterday and next dialysis will be scheduled for tomorrow, January 08. Volume status remains well compensated. 2. Hypertension: Blood pressure has been very well controlled on current antihypertensive meds and no changes are being made today. 3. Anemia: Her anemia has been very mild and stable and does not need any intervention at present. 4. Altered mentation: This is chronic dementia and no change is noticed over the last several days."
[2021-01-08 14:00] VITALS: BP 144/64
[2021-01-08] MEDS ORDERED: WARFARIN SOD 5MG TAB PO SCH (17:00)
[2021-01-08 20:00] VITALS: BP 143/63
[2021-01-08] MEDS: QUEtiapine FUMARATE 25 MG TAB PO SCH (20:10)
[2021-01-08] MEDS: SENNA 8.6 MG TAB (SENOKOT) PO SCH (20:11)
[2021-01-09 05:12] VITALS: BP 144/72
[2021-01-09] MEDS ORDERED: LIDOCAINE 1% SDV 5ML VIAL SC PRN (05:55)
[2021-01-09] MEDS ORDERED: SODIUM CHLORIDE 0.9% 1000ML IV PRN (05:55)
[2021-01-09 07:00] LABS: INR 2.78
[2021-01-09] MEDS: REMEDY PHYTOPLEX Z-GUARD PASTE 113GM TUBE (FROM STOREROOM PRODUCT) TOP SCH ×3 (09:00→20:05)
[2021-01-09] MEDS: CARVedilol 12.5 MG TAB PO SCH ×2 (09:00→20:04)
[2021-01-09] MEDS: DOCUSATE SODIUM 100MG CAPSULE PO SCH ×2 (09:00→20:05)
[2021-01-09 09:17] VITALS: BP 162/71
[2021-01-09] MEDS: TAMSULOSIN 0.4 MG CAP PO SCH (09:19)
[2021-01-09] MEDS: MULTIVITAMINS/MINERALS THERAP 1 TAB PO SCH (09:19)
[2021-01-09] MEDS: buPROPion 100 MG TAB PO SCH ×2 (09:19→20:04)
[2021-01-09] MEDS: PROPAFENONE 150 MG TAB PO SCH ×2 (09:19→20:04)
[2021-01-09] MEDS: PANTOPRAZOLE 40MG TAB (PROTONIX) PO SCH (09:19)
--- NOTE | 2021-01-09 09:24 | IPN ---
NEPHROLOGY PROGRESS NOTE DATE: 01/08/2021 SUBJECTIVE: Ms. Santillan is seen this morning on her bedside. She remains very confused and disoriented. She wants to know if she can go home right now. Yesterday she was talking about her work, if she can go back to work, why she has not worked in years. PHYSICAL EXAMINATION: Temperature 97 degrees Fahrenheit, heart rate 64 per minute, respiratory rate 18 per minute, blood pressure 150/78 mmHg, oxygen saturation 99% on room air. HEAD: Atraumatic. NECK: Supple and without jugular venous distention (JVD) or thyroid enlargement. HEART SOUNDS: Irregular in rhythm. LUNGS: Clear to auscultation. ABDOMEN: Soft and nontender. Bowel sounds normal. EXTREMITIES: Without any cyanosis or clubbing. Right forearm arteriovenous (AV) fistula is patent. LABORATORY STUDIES: Today's labs show WBC 6.1, hemoglobin 11.6, hematocrit 36.6. Sodium 136, potassium 5.1, BUN 40, creatinine 5.84. PROBLEMS: 1. End-stage renal disease. Patient has been dialyzed on Monday, Monday and Monday schedule. We will not be able to dialyze her today because of tight schedule. We are going to postpone her dialysis until tomorrow. I do not see any problem, as her volume status is well-compensated and her electrolytes are normal. 2. Anemia. Her anemia has been stable and very mild. It does not need any intervention. 3. Hypertension. Blood pressure is slightly high today and we will need to monitor closely. I will not change any medications as yet. 4. Altered mentation. This is a chronic issue and probably getting worse now. Most likely, this is related to dementia, as no other acute etiology has been determined. 5. Generalized deconditioning. Patient continues with rehabilitation.
[2021-01-09] MEDS: IRON SUCROSE 100MG 5ML VIAL (J1756 PER 1MG) IV SCH (13:17)
[2021-01-09] MEDS ORDERED: WARFARIN SOD 2.5MG TAB PO SCH (17:00)
[2021-01-09] MEDS ORDERED: WARFARIN SOD 1MG TAB PO SCH (17:00)
[2021-01-09] MEDS: WARFARIN SOD 2.5MG TAB PO SCH (17:51)
[2021-01-09] MEDS: WARFARIN SOD 1MG TAB PO SCH (17:51)
[2021-01-09 20:00] VITALS: BP 130/63
[2021-01-09] MEDS: QUEtiapine FUMARATE 25 MG TAB PO SCH (20:04)
[2021-01-09] MEDS: SENNA 8.6 MG TAB (SENOKOT) PO SCH (20:04)
--- NOTE | 2021-01-09 22:18 | IPN ---
NEPHROLOGY PROGRESS NOTE DATE: 01/09/2021 SUBJECTIVE: Patient was seen and examined at the bedside today morning. She is afebrile, hemodynamically stable. Today is patient's regular day of dialysis. She denies any active complaints at this time. OBJECTIVE: VITAL SIGNS: Temperature 97.9 degrees Fahrenheit, blood pressure 162/71, pulse 58, respiratory rate 17, saturating 100% on room air. INTAKE/OUTPUT: Urine output is not recorded. Weight in the bed scale is 60.1 kg. PHYSICAL EXAMINATION: GENERAL: Patient is awake, alert, oriented x2, lying in bed, no apparent distress. HEAD/NECK: Extraocular muscles intact. Pupils equally round and reactive to light. Mucous membranes are moist. Neck is supple. There is no JVD. CARDIOVASCULAR: S1, S2, regular rate. No edema of the bilateral lower extremities. RESPIRATORY: Chest is clear to auscultation bilaterally. Bilateral equal air entry. No rales or rhonchi. ABDOMEN: Soft, positive bowel sounds, nontender. No organomegaly. MUSCULOSKELETAL: No clubbing or cyanosis. Pulses are 2+. PIPE FOREMAN: No focal deficit. Power is 5/5 in all extremities. LABORATORY REVIEW: CBC showed WBC 6.1, hemoglobin 11.6, platelets 228,000. BMP showed sodium 136, potassium 5.1, chloride 105, bicarb 24, BUN 40, creatinine 5.8. CURRENT INPATIENT MEDICATIONS: Patient was started on multivitamin tablet daily. No other significant change in the medications today. ASSESSMENT AND PLAN: 1. End-stage renal disease: Patient will be dialyzed according to her schedule today in the afternoon. Ultrafiltration goal will be around 1 liter as tolerated by her blood pressure. 2. Anemia and end-stage renal disease: Latest hemoglobin is 11.6. She is not requiring Aranesp. She continues to be on I.V. Venofer. 3. Hypertension: Blood pressure is controlled with current dose of Coreg. 4. Secondary hyperparathyroidism: Continue current dose of Sensipar.
[2021-01-10 05:18] VITALS: BP 144/65
[2021-01-10 06:56] LABS: INR 2.47; PROTHROMBIN TIME 27.3 SECONDS (12.5-14.3)
[2021-01-10] MEDS: CARVedilol 12.5 MG TAB PO SCH ×2 (08:05→20:07)
[2021-01-10] MEDS: PANTOPRAZOLE 40MG TAB (PROTONIX) PO SCH (08:15)
[2021-01-10] MEDS: PROPAFENONE 150 MG TAB PO SCH ×2 (08:15→20:06)
[2021-01-10] MEDS: TAMSULOSIN 0.4 MG CAP PO SCH (08:15)
[2021-01-10] MEDS: buPROPion 100 MG TAB PO SCH ×2 (08:15→20:06)
[2021-01-10] MEDS: MULTIVITAMINS/MINERALS THERAP 1 TAB PO SCH (08:16)
[2021-01-10] MEDS: DOCUSATE SODIUM 100MG CAPSULE PO SCH ×2 (08:17→20:07)
[2021-01-10] MEDS: REMEDY PHYTOPLEX Z-GUARD PASTE 113GM TUBE (FROM STOREROOM PRODUCT) TOP SCH ×3 (08:17→20:07)
[2021-01-10 14:00] VITALS: BP 119/58
[2021-01-10] MEDS: WARFARIN SOD 1MG TAB PO SCH (17:28)
[2021-01-10] MEDS: WARFARIN SOD 2.5MG TAB PO SCH (17:28)
[2021-01-10] MEDS: QUEtiapine FUMARATE 25 MG TAB PO SCH (20:06)
[2021-01-10] MEDS: SENNA 8.6 MG TAB (SENOKOT) PO SCH (20:07)
[2021-01-10 22:12] VITALS: BP 130/61
[2021-01-11] MEDS ORDERED: EPINEPHrine INJ 1 MG/ML 1ML AMP IM PRN
[2021-01-11] MEDS ORDERED: diphenhydrAMINE 50MG/ML VIAL (J1200) IM PRN
[2021-01-11 06:00] VITALS: BP 123/60
[2021-01-11 06:36] LABS: BASO # 0.1 10^3/uL (0.0-0.2); BASO % 1.3 % (0.0-1.0); EOS # 0.1 10^3/uL (0.0-0.5); EOS % 1.3 % (0.0-3.0); HEMATOCRIT 34.5 % (36.0-47.0); HEMOGLOBIN 11.2 g/dl (12.0-15.5); LYMPH # 1.3 10^3/uL (1.5-5.0); LYMPH % 18.9 % (24.0-44.0); MEAN CORPUSCULAR HEMOGLOBIN 31.5 pg (27.0-33.0); MEAN CORPUSCULAR HGB CONC 32.5 g/dl (32.0-36.5); MEAN CORPUSCULAR VOLUME 96.9 fl (80.0-96.0); MONO # 0.8 10^3/uL (0.0-0.8); MONO % 10.7 % (2.0-8.0); NEUTROPHILS # 4.7 10^3/uL (1.5-8.5); NEUTROPHILS % 67.5 % (36.0-66.0); PLATELET COUNT, AUTOMATED 243 10^3/uL (150-450); RED BLOOD COUNT 3.56 10^6/uL (4.00-5.40)
[2021-01-11 06:50] LABS: INR 2.65; PROTHROMBIN TIME 28.9 SECONDS (12.5-14.3)
[2021-01-11 07:05] LABS: CALCIUM LEVEL 9.3 MG/DL (8.8-10.2); CREATININE FOR GFR 6.51 MG/DL (0.55-1.30); GLOMERULAR FILTRATION RATE 6.7 (>39); POTASSIUM SERUM 4.5 MEQ/L (3.5-5.1)
[2021-01-11] MEDS: CARVedilol 12.5 MG TAB PO SCH ×2 (09:00→20:20)
[2021-01-11] MEDS: PANTOPRAZOLE 40MG TAB (PROTONIX) PO SCH (09:22)
[2021-01-11] MEDS: buPROPion 100 MG TAB PO SCH ×2 (09:22→20:19)
[2021-01-11] MEDS: DOCUSATE SODIUM 100MG CAPSULE PO SCH ×2 (09:22→20:19)
[2021-01-11] MEDS: TAMSULOSIN 0.4 MG CAP PO SCH (09:22)
[2021-01-11] MEDS: MULTIVITAMINS/MINERALS THERAP 1 TAB PO SCH (09:22)
[2021-01-11] MEDS: PROPAFENONE 150 MG TAB PO SCH ×2 (09:22→20:19)
[2021-01-11] MEDS: REMEDY PHYTOPLEX Z-GUARD PASTE 113GM TUBE (FROM STOREROOM PRODUCT) TOP SCH ×3 (09:24→20:23)
[2021-01-11] MEDS ORDERED: COVID-19 VAC,AD26(JANSSEN)/PF 0.5ML SYRINGE (EUA) IM ONE (10:00)
[2021-01-11] MEDS: MEMANTINE 5MG TABLET (NAMENDA) PO SCH (12:49)
[2021-01-11] MEDS: WARFARIN SOD 1MG TAB PO SCH (16:46)
[2021-01-11] MEDS: WARFARIN SOD 2.5MG TAB PO SCH (16:46)
[2021-01-11 20:00] VITALS: BP 122/80
[2021-01-11] MEDS: SENNA 8.6 MG TAB (SENOKOT) PO SCH (20:20)
[2021-01-11] MEDS: QUEtiapine FUMARATE 25 MG TAB PO SCH (20:20)
--- NOTE | 2021-01-11 21:56 | IPN ---
NEPHROLOGY PROGRESS NOTE DATE: 01/11/2021 SUBJECTIVE: Patient was seen and examined at the bedside today morning. She is afebrile, hemodynamically stable. She denies any active complaints. Tomorrow is patient's regular day of dialysis. OBJECTIVE: VITAL SIGNS: Temperature 98 degrees Fahrenheit, blood pressure 122/80, pulse 90, respiratory rate 18, sating 96% on room air. INTAKE AND OUTPUT: There is no urine output recorded. Weight in the bed scale is 55.6 kg. PHYSICAL EXAMINATION: GENERAL: Patient is awake, alert, oriented x2, sitting up in the bed, in no apparent distress. HEAD AND NECK: Extraocular muscles intact. Pupils equally round and reactive to light. Mucous membranes are moist. Neck is supple. There is no JVD. RESPIRATORY: Chest is clear to auscultation bilaterally. Bilateral equal air entry. No rales or rhonchi. CARDIOVASCULAR: S1, S2, regular rate. No edema of bilateral lower extremities. ABDOMEN: Soft, positive bowel sounds, nontender. No organomegaly. MUSCULOSKELETAL: No clubbing or cyanosis. Pulses are 2+. 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 Power is 5/5 in all extremities. LABORATORY DATA: CBC showed WBC 7, hemoglobin 11.2, platelets 243,000. BMP showed sodium 135, potassium 4.5, chloride 99, bicarb 27, BUN 40, creatinine 6.5. CURRENT INPATIENT MEDICATIONS: Patient's medications were all reviewed by myself. No significant change in the medications today. I have started the patient on Memantine 5 mg p.o. daily. ASSESSMENT AND PLAN: 1. End-stage renal disease: Patient's next dialysis session will be tomorrow morning. Ultrafiltration goal will be 1 liter as tolerated by her blood pressure. 2. Progressive dementia: Patient has been started on Memantine 5 mg p.o. daily. 3. Hypertension: Continue current dose of Coreg. 4. Secondary hyperparathyroidism: Continue current dose of sensipar. MTDD
[2021-01-12 06:00] VITALS: BP 110/54
[2021-01-12 06:34] LABS: INR 3.02
[2021-01-12] MEDS ORDERED: LIDOCAINE 1% SDV 5ML VIAL SC PRN (07:45)
[2021-01-12] MEDS: PROPAFENONE 150 MG TAB PO SCH ×2 (08:54→20:50)
[2021-01-12] MEDS: buPROPion 100 MG TAB PO SCH ×2 (08:54→20:51)
[2021-01-12] MEDS: DOCUSATE SODIUM 100MG CAPSULE PO SCH ×2 (08:54→20:51)
[2021-01-12] MEDS: PANTOPRAZOLE 40MG TAB (PROTONIX) PO SCH (08:54)
[2021-01-12] MEDS: MULTIVITAMINS/MINERALS THERAP 1 TAB PO SCH (08:55)
[2021-01-12] MEDS: TAMSULOSIN 0.4 MG CAP PO SCH (08:55)
[2021-01-12] MEDS: MEMANTINE 5MG TABLET (NAMENDA) PO SCH (08:55)
[2021-01-12] MEDS: REMEDY PHYTOPLEX Z-GUARD PASTE 113GM TUBE (FROM STOREROOM PRODUCT) TOP SCH ×3 (08:56→20:51)
[2021-01-12] MEDS: CARVedilol 12.5 MG TAB PO SCH ×2 (09:00→20:50)
--- NOTE | 2021-01-12 11:10 | IPNPDOC ---
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 REVIEW OF SYSTEMS: The following is a completed review of systems and has been reviewed. Review of systems otherwise unremarkable. PAIN: Patient self reports no pain EYES: No recent vision changes EARS, NOSE, & THROAT: No throat pain, or dysphagia, or rhinorrhea CARDIOVASCULAR: Denies chest pain or palpitations PULMONARY: Denies shortness of breath GASTROINTESTINAL: Denies constipation/diarrhea, +nausea GENITOURINARY: denies dysuria MUSCULOSKELETAL: generalized weakness NEUROLOGICAL: bilat UE tremor (improving) HEMATOLOGICAL: +anemia SKIN: +sacral ulcer PSYCHIATRIC: +confused All other review of systems found to be negative. PHYSICAL EXAMINATION: VITAL SIGNS: Please see below. GENERAL: Pleasant and cooperative. No acute distress. HEENT: PERRL. Extraocular movements intact. Clear conjunctiva CARDIOVASCULAR: Regular rate and rhythm. No murmurs, rubs, or gallops LUNGS: Clear to auscultation bilaterally. No wheezes. No rhonchi ABDOMEN: Soft, nontender, nondistended. Positive bowel sounds. Normal active bowel sounds NEUROLOGICAL: Alert and oriented to self and place, not time able to follow directions, Cranial nerves II through XII grossly intact. Sensation grossly intact EXTREMITIES: 5-\5 strength bilateral upper extremities. 5-\5 strength right lower extremity. 5-/5 strength in left lower extremity. ASSESSMENT:70-year-old F with past medical history of ESRD who presents status post multiple falls with worsening weakness and confusion PLAN: 1. Rehab- PT/OT advance mobility and ADLs, strengthen/stretch/maintain ROM all 4limbs -QA TECH eval for cog and swallow 2. Neuro- encephalopathic with weakness, improving -c/u off Megace which per daughter was restarted a few months ago due to poor po intake as can cause confusion and muscle weakness-patient eating well and subj ectively feels stronger while on ARU -c/u Wellbutrin 50mg BID (tapered) -neuro consults, recs appreciated, patient being treated for Lewy Body dementia with Seroquel 25mg qHS-hallucinations seem to be improving, Namenda added for cognitive enhancement -Zyprexa prn for agitation 3. CArdiac- hx of afib on Coumadin, daily PT/INRs, c/u rhythmol and Coreg- medicine consulted to assist in overall management -diastolic CHF c/u fluid restriction 4. Resp- monitor for infection 5. Renal- ESRD on HD, renal consulted-recs appreciated -c/u flomax for urinary retention 6. Heme- anemia due to chronic disease s/p transfusions, renal managing 7. GI ppx- protonix 8. DVT ppx- on warfarin 9. Dispo- 01-12-21, waiting for a bed at [facility] level, patient still making gains in therapy Allergies Coded Allergies: Sulfa (Sulfonamide Antibiotics) (Verified Adverse Reaction, Intermediate, upset stomach, 06/27/19) Vital Signs Vital Signs Date Time Temp Pulse Resp B/P (MAP) Pulse Ox O2 Delivery O2 Flow Rate FiO2 01/12/21 09:00 60 132/62 01/12/21 06:00 97.4 18 97 Room Air Laboratory Data Labs 24H Laboratory Tests 2 01/12/21 05:42: Prothrombin Time 32.0H, Prothromb Time International Ratio 3.02 Current Medications Current Medications Current Medications Medications (Trade) Dose Ordered Sig/Eileen Route PRN Reason Start Time Stop Time Status Last Admin Dose Admin Acetaminophen (Tylenol Tab) 650 mg Q4HP PRN PO fever/MILD PAIN (PS 1-4) 12/28/20 16:10 Bupropion HCl (Wellbutrin Xl) 300 mg DAILY PO 12/29/20 09:00 12/29/20 10:05 DC 12/29/20 09:28 Bupropion HCl (Wellbutrin) 50 mg BID PO 01/06/21 21:00 01/12/21 08:54 Bupropion HCl (Wellbutrin) 50 mg BID@1700,2200 PO 01/01/21 17:00 01/01/21 22:01 DC 01/01/21 22:38 Bupropion HCl (Wellbutrin) 50 mg TID PO 01/01/21 09:00 01/01/21 12:18 DC 01/01/21 11:54 Bupropion HCl (Wellbutrin) 50 mg TID PO 01/02/21 09:00 01/06/21 13:54 DC 01/06/21 08:49 Bupropion HCl (Wellbutrin) 75 mg TID PO 12/29/20 16:00 01/01/21 09:30 DC 12/31/20 20:40 Bupropion HCl (Wellbutrin) 75 mg TID PO 12/30/20 16:00 12/29/20 15:39 DC Bupropion HCl (Wellbutrin) 100 mg TID PO 12/30/20 09:00 12/29/20 14:38 DC Carvedilol (COReg) 12.5 mg BID PO 12/28/20 21:00 01/12/21 09:00 Cinacalcet (Sensipar) 30 mg WeFr@0900 PO 01/01/21 09:00 01/08/21 07:56 Diphenhydramine HCl (Benadryl) 50 mg ASDIRECTED PRN IM ANAPHYLAXIS 01/11/21 00:00 01/11/21 23:59 DC Docusate Sodium (Colace) 100 mg BID PO 12/28/20 21:00 01/12/21 08:54 Epinephrine HCl (Adrenalin) 0.3 mg ASDIRECTED PRN IM ANAPHYLAXIS 01/11/21 00:00 01/11/21 23:59 DC Heparin Sodium (Heparin) Please refer to ... ASDIRECTED XX 01/09/21 05:55 01/10/21 05:54 DC Heparin Sodium (Heparin) Please refer to ... ASDIRECTED XX 01/12/21 07:45 01/13/21 07:44 Heparin Sodium (Heparin) Please refer to ... ASDIRECTED XX 12/30/20 10:15 12/31/20 10:14 DC Heparin Sodium (Heparin) Please refer to ... ASDIRECTED XX 01/01/21 12:20 01/02/21 12:19 DC Iron (Venofer) 100 mg HD IV 12/30/20 11:25 01/01/21 11:26 DC 12/30/20 13:11 Iron (Venofer) 100 mg HD IV 01/01/21 13:10 01/09/21 13:17 Lidocaine HCl (Lidocaine 1% Sdv) 0.5 ml ASDIRECTED PRN SC SEE LABEL COMMENTS 01/09/21 05:55 01/10/21 05:54 DC Lidocaine HCl (Lidocaine 1% Sdv) 0.5 ml ASDIRECTED PRN SC SEE LABEL COMMENTS 01/12/21 07:45 01/13/21 07:44 Lidocaine HCl (Lidocaine 1% Sdv) 0.5 ml ASDIRECTED PRN SC SEE LABEL COMMENTS 12/30/20 10:15 12/31/20 10:14 DC Lidocaine HCl (Lidocaine 1% Sdv) 0.5 ml ASDIRECTED PRN SC SEE LABEL COMMENTS 01/01/21 12:20 01/02/21 12:19 DC Megestrol Acetate (Megace Acetate Suspension) 40 mg QID PO 12/29/20 09:49 12/29/20 14:38 DC Megestrol Acetate (Megace) 40 mg QID PO 12/28/20 17:00 12/29/20 09:18 DC 12/28/20 21:14 Megestrol Acetate (Megace) 40 mg QID PO 12/29/20 09:15 12/29/20 09:49 DC Memantine (Namenda) 5 mg DAILY PO 01/11/21 09:00 01/12/21 08:55 Multivitamins (Theragram-M) 1 tab DAILY PO 01/09/21 09:00 01/12/21 08:55 Mupirocin (Bactroban 2% Ointment) 1 dose BID TOP 12/28/20 21:00 01/05/21 16:04 DC 01/05/21 08:59 Olanzapine (ZyPREXA) 2.5 mg Q6HP PRN PO AGITATION 12/29/20 15:00 Pantoprazole Sodium (Protonix) 40 mg DAILY PO 12/29/20 09:00 01/12/21 08:54 Polyethylene Glycol (Miralax) 1 pkt DAILY PRN PO CONSTIPATION 12/28/20 16:10 01/05/21 18:29 Propafenone HCl (Rythmol) 300 mg BID PO 12/28/20 21:00 01/12/21 08:54 Quetiapine Fumarate (SEROquel) 25 mg QHS PO 12/31/20 21:00 01/11/21 20:20 Senna (Senokot) 1 tab QHS PO 12/28/20 21:00 01/11/21 20:20 Sodium Chloride (Nacl 0.9%) 200 ml ASDIRECTED PRN IV SEE LABEL COMMENTS 01/09/21 05:55 01/10/21 05:54 DC Sodium Chloride (Nacl 0.9%) 200 ml ASDIRECTED PRN IV SEE LABEL COMMENTS 12/30/20 10:15 12/31/20 10:14 DC Sodium Chloride (Nacl 0.9%) 200 ml ASDIRECTED PRN IV SEE LABEL COMMENTS 01/01/21 12:20 01/02/21 12:19 DC Tamsulosin HCl (Flomax) 0.4 mg DAILY PO 12/29/20 09:00 01/12/21 08:55 Warfarin Sodium (Coumadin) 1 mg DAILY@17 PO 01/09/21 17:00 01/11/21 16:46 Warfarin Sodium (Coumadin) 1 mg DAILY@17 PO 01/09/21 17:00 Cancel Warfarin Sodium (Coumadin) 1 mg DAILY@17 PO 12/30/20 17:00 01/03/21 19:09 DC 01/03/21 16:55 Warfarin Sodium (Coumadin) 2 mg DAILY@17 PO 01/04/21 17:00 01/06/21 12:17 DC 01/05/21 16:17 Warfarin Sodium (Coumadin) 2.5 mg DAILY@17 PO 01/09/21 17:00 01/11/21 16:46 Warfarin Sodium (Coumadin) 3.5 mg DAILY@17 PO 01/09/21 17:00 01/09/21 17:29 DC Warfarin Sodium (Coumadin) 5 mg DAILY@17 PO 01/06/21 17:00 01/07/21 07:26 DC 01/06/21 16:21 Warfarin Sodium (Coumadin) 5 mg DAILY@17 PO 01/08/21 17:00 01/09/21 10:38 DC 01/08/21 17:36 Warfarin Sodium (Coumadin) 7.5 mg DAILY@17 PO 12/29/20 17:00 12/30/20 07:58 DC 12/29/20 17:04 LINA CASTILLO MD Jan 12, 2021 11:10
--- NOTE | 2021-01-12 11:10 | IPNPDOC ---
PM&R Progress Note DATE OF SERVICE: Jan 11, 2021 Communications Instructor Progress Note Subjective: Patient seen in her room with her daughter asking about her new medications for her Lewy Body Dementia and to discuss the discharge plan. REVIEW OF SYSTEMS: The following is a completed review of systems and has been reviewed. Review of systems otherwise unremarkable. PAIN: Patient self reports no pain EYES: No recent vision changes EARS, NOSE, & THROAT: No throat pain, or dysphagia, or rhinorrhea CARDIOVASCULAR: Denies chest pain or palpitations PULMONARY: Denies shortness of breath GASTROINTESTINAL: Denies constipation/diarrhea GENITOURINARY: denies dysuria MUSCULOSKELETAL: generalized weakness NEUROLOGICAL: bilat UE tremor (improving) HEMATOLOGICAL: +anemia SKIN: +sacral ulcer PSYCHIATRIC: +confused All other review of systems found to be negative. PHYSICAL EXAMINATION: VITAL SIGNS: Please see below. GENERAL: Pleasant and cooperative. No acute distress. HEENT: PERRL. Extraocular movements intact. Clear conjunctiva CARDIOVASCULAR: Regular rate and rhythm. No murmurs, rubs, or gallops LUNGS: Clear to auscultation bilaterally. No wheezes. No rhonchi ABDOMEN: Soft, nontender, nondistended. Positive bowel sounds. Normal active bowel sounds NEUROLOGICAL: Alert and oriented to self and place, not time able to follow directions, Cranial nerves II through XII grossly intact. Sensation grossly intact EXTREMITIES: 5-\5 strength bilateral upper extremities. 5-\5 strength right lower extremity. 5-/5 strength in left lower extremity. ASSESSMENT:70-year-old F with past medical history of ESRD who presents status post multiple falls with worsening weakness and confusion PLAN: 1. 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 Neuro- encephalopathic with weakness, improving -c/u off Megace which per daughter was restarted a few months ago due to poor po intake as can cause confusion and muscle weakness-patient eating well and subjectively feels stronger while on ARU -c/u Wellbutrin 50mg BID (tapered) -neuro consults, recs appreciated, patient being treated for Lewy Body dementia with Seroquel 25mg qHS-hallucinations seem to be improving, Namenda added for cognitive enhancement -Zyprexa prn for agitation 3. CArdiac- hx of afib on Coumadin, daily PT/INRs, c/u rhythmol and Coreg- medicine consulted to assist in overall management -diastolic CHF c/u fluid restriction 4. Resp- monitor for infection 5. Renal- ESRD on HD, renal consulted-recs appreciated -c/u flomax for urinary retention 6. Heme- anemia due to chronic disease s/p transfusions, renal managing 7. GI ppx- protonix 8. DVT ppx- on warfarin 9. Dispo- 01-12-21, waiting for a bed at [facility] level, patient still making gains in therapy Allergies Coded Allergies: Sulfa (Sulfonamide Antibiotics) (Verified Adverse Reaction, Intermediate, upset stomach, 06/27/19) Vital Signs Vital Signs Date Time Temp Pulse Resp B/P (MAP) Pulse Ox O2 Delivery O2 Flow Rate FiO2 01/12/21 09:00 60 132/62 01/12/21 06:00 97.4 18 97 Room Air Laboratory Data Labs 24H Laboratory Tests 2 01/12/21 05:42: Prothrombin Time 32.0H, Prothromb Time International Ratio 3.02 Current Medications Current Medications Current Medications Medications (Trade) Dose Ordered Sig/Eileen Route PRN Reason Start Time Stop Time Status Last Admin Dose Admin Acetaminophen (Tylenol Tab) 650 mg Q4HP PRN PO fever/MILD PAIN (PS 1-4) 12/28/20 16:10 Bupropion HCl (Wellbutrin Xl) 300 mg DAILY PO 12/29/20 09:00 12/29/20 10:05 DC 12/29/20 09:28 Bupropion HCl (Wellbutrin) 50 mg BID PO 01/06/21 21:00 01/12/21 08:54 Bupropion HCl (Wellbutrin) 50 mg BID@1700,2200 PO 01/01/21 17:00 01/01/21 22:01 DC 01/01/21 22:38 Bupropion HCl (Wellbutrin) 50 mg TID PO 01/01/21 09:00 01/01/21 12:18 DC 01/01/21 11:54 Bupropion HCl (Wellbutrin) 50 mg TID PO 01/02/21 09:00 01/06/21 13:54 DC 01/06/21 08:49 Bupropion HCl (Wellbutrin) 75 mg TID PO 12/29/20 16:00 01/01/21 09:30 DC 12/31/20 20:40 Bupropion HCl (Wellbutrin) 75 mg TID PO 12/30/20 16:00 12/29/20 15:39 DC Bupropion HCl (Wellbutrin) 100 mg TID PO 12/30/20 09:00 12/29/20 14:38 DC Carvedilol (COReg) 12.5 mg BID PO 12/28/20 21:00 01/12/21 09:00 Cinacalcet (Sensipar) 30 mg WeFr@0900 PO 01/01/21 09:00 01/08/21 07:56 Diphenhydramine HCl (Benadryl) 50 mg ASDIRECTED PRN IM ANAPHYLAXIS 01/11/21 00:00 01/11/21 23:59 DC Docusate Sodium (Colace) 100 mg BID PO 12/28/20 21:00 01/12/21 08:54 Epinephrine HCl (Adrenalin) 0.3 mg ASDIRECTED PRN IM ANAPHYLAXIS 01/11/21 00:00 01/11/21 23:59 DC Heparin Sodium (Heparin) Please refer to ... ASDIRECTED XX 01/09/21 05:55 01/10/21 05:54 DC Heparin Sodium (Heparin) Please refer to ... ASDIRECTED XX 01/12/21 07:45 01/13/21 07:44 Heparin Sodium (Heparin) Please refer to ... ASDIRECTED XX 12/30/20 10:15 12/31/20 10:14 DC Heparin Sodium (Heparin) Please refer to ... ASDIRECTED XX 01/01/21 12:20 01/02/21 12:19 DC Iron (Venofer) 100 mg HD IV 12/30/20 11:25 01/01/21 11:26 DC 12/30/20 13:11 Iron (Venofer) 100 mg HD IV 01/01/21 13:10 01/09/21 13:17 Lidocaine HCl (Lidocaine 1% Sdv) 0.5 ml ASDIRECTED PRN SC SEE LABEL COMMENTS 01/09/21 05:55 01/10/21 05:54 DC Lidocaine HCl (Lidocaine 1% Sdv) 0.5 ml ASDIRECTED PRN SC SEE LABEL COMMENTS 01/12/21 07:45 01/13/21 07:44 Lidocaine HCl (Lidocaine 1% Sdv) 0.5 ml ASDIRECTED PRN SC SEE LABEL COMMENTS 12/30/20 10:15 12/31/20 10:14 DC Lidocaine HCl (Lidocaine 1% Sdv) 0.5 ml ASDIRECTED PRN SC SEE LABEL COMMENTS 01/01/21 12:20 01/02/21 12:19 DC Megestrol Acetate (Megace Acetate Suspension) 40 mg QID PO 12/29/20 09:49 12/29/20 14:38 DC Megestrol Acetate (Megace) 40 mg QID PO 12/28/20 17:00 12/29/20 09:18 DC 12/28/20 21:14 Megestrol Acetate (Megace) 40 mg QID PO 12/29/20 09:15 12/29/20 09:49 DC Memantine (Namenda) 5 mg DAILY PO 01/11/21 09:00 01/12/21 08:55 Multivitamins (Theragram-M) 1 tab DAILY PO 01/09/21 09:00 01/12/21 08:55 Mupirocin (Bactroban 2% Ointment) 1 dose BID TOP 12/28/20 21:00 01/05/21 16:04 DC 01/05/21 08:59 Olanzapine (ZyPREXA) 2.5 mg Q6HP PRN PO AGITATION 12/29/20 15:00 Pantoprazole Sodium (Protonix) 40 mg DAILY PO 12/29/20 09:00 01/12/21 08:54 Polyethylene Glycol (Miralax) 1 pkt DAILY PRN PO CONSTIPATION 12/28/20 16:10 01/05/21 18:29 Propafenone HCl (Rythmol) 300 mg BID PO 12/28/20 21:00 01/12/21 08:54 Quetiapine Fumarate (SEROquel) 25 mg QHS PO 12/31/20 21:00 01/11/21 20:20 Senna (Senokot) 1 tab QHS PO 12/28/20 21:00 01/11/21 20:20 Sodium Chloride (Nacl 0.9%) 200 ml ASDIRECTED PRN IV SEE LABEL COMMENTS 01/09/21 05:55 01/10/21 05:54 DC Sodium Chloride (Nacl 0.9%) 200 ml ASDIRECTED PRN IV SEE LABEL COMMENTS 12/30/20 10:15 12/31/20 10:14 DC Sodium Chloride (Nacl 0.9%) 200 ml ASDIRECTED PRN IV SEE LABEL COMMENTS 01/01/21 12:20 01/02/21 12:19 DC Tamsulosin HCl (Flomax) 0.4 mg DAILY PO 12/29/20 09:00 01/12/21 08:55 Warfarin Sodium (Coumadin) 1 mg DAILY@17 PO 01/09/21 17:00 01/11/21 16:46 Warfarin Sodium (Coumadin) 1 mg DAILY@17 PO 01/09/21 17:00 Cancel Warfarin Sodium (Coumadin) 1 mg DAILY@17 PO 12/30/20 17:00 01/03/21 19:09 DC 01/03/21 16:55 Warfarin Sodium (Coumadin) 2 mg DAILY@17 PO 01/04/21 17:00 01/06/21 12:17 DC 01/05/21 16:17 Warfarin Sodium (Coumadin) 2.5 mg DAILY@17 PO 01/09/21 17:00 01/11/21 16:46 Warfarin Sodium (Coumadin) 3.5 mg DAILY@17 PO 01/09/21 17:00 01/09/21 17:29 DC Warfarin Sodium (Coumadin) 5 mg DAILY@17 PO 01/06/21 17:00 01/07/21 07:26 DC 01/06/21 16:21 Warfarin Sodium (Coumadin) 5 mg DAILY@17 PO 01/08/21 17:00 01/09/21 10:38 DC 01/08/21 17:36 Warfarin Sodium (Coumadin) 7.5 mg DAILY@17 PO 12/29/20 17:00 12/30/20 07:58 DC 12/29/20 17:04 LINA CASTILLO MD Jan 12, 2021 11:10
[2021-01-12 14:00] VITALS: BP 129/69
[2021-01-12] MEDS: IRON SUCROSE 100MG 5ML VIAL (J1756 PER 1MG) IV SCH (14:04)
[2021-01-12] MEDS: WARFARIN SOD 1MG TAB PO SCH (17:29)
[2021-01-12] MEDS: WARFARIN SOD 2.5MG TAB PO SCH (17:30)
[2021-01-12 20:30] VITALS: BP 131/61
[2021-01-12] MEDS: QUEtiapine FUMARATE 25 MG TAB PO SCH (20:50)
[2021-01-12] MEDS: SENNA 8.6 MG TAB (SENOKOT) PO SCH (20:51)
--- NOTE | 2021-01-12 23:15 | IPN ---
NEPHROLOGY PROGRESS NOTE DATE: 01/12/2021 SUBJECTIVE: The patient was seen and examined at the bedside today morning. She is afebrile, hemodynamically stable. She was sitting up in the sofa. She denies any active complaints at this time. OBJECTIVE: VITAL SIGNS: Temperature is 97.2 degrees Fahrenheit, blood pressure 131/61, pulse is 61, respiratory rate of 18, saturating 98% on room air. INTAKE AND OUTPUT: Urine output is not recorded. Weight in the bed scale is 57.5 kg. PHYSICAL EXAMINATION: GENERAL APPEARANCE: The patient is awake, alert, oriented x2, sitting up in the bed in no apparent distress. HEAD AND NECK: Extraocular muscles intact. Pupils are equally round and reactive to light. Mucous membranes are moist. Neck is supple. There is no jugular venous distention. CARDIOVASCULAR: S1, S2, regular rate. EXTREMITIES: No edema of the bilateral lower extremities. RESPIRATORY: Chest is clear to auscultation bilaterally. ABDOMEN: Soft, positive bowel sounds, nontender, no organomegaly. MUSCULOSKELETAL: No clubbing, no cyanosis. Pulses are 2+. 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 Power is 5/5 in all extremities. LAB REVIEW: CBC is from yesterday. BMP is also from yesterday with a potassium of 4.5. CURRENT INPATIENT MEDICATIONS: The patient's medications were all reviewed by myself. No significant change in the medications today as compared with yesterday. ASSESSMENT AND PLAN: 1. End-stage renal disease - The patient will be dialyzed according to her schedule today. Ultrafiltration goal will be around 2 kg as tolerated by her blood pressure. 2. Progressive dementia - The patient is on Memantine. 3. Hypertension - continue current dose of Coreg. Volume status is optimized with dialysis. 4. Secondary hyperparathyroidism - continue sensipar. 5. Anemia and end-stage renal disease - hemoglobin level is above 11. She does not need Aranesp at this time. Continue Venofer with dialysis. MTDD
[2021-01-13 06:10] VITALS: BP 136/61
[2021-01-13 06:41] LABS: BASO # 0.1 10^3/uL (0.0-0.2); BASO % 2.3 % (0.0-1.0); EOS % 0.6 % (0.0-3.0); HEMATOCRIT 37.7 % (36.0-47.0); LYMPH % 21.8 % (24.0-44.0); MEAN CORPUSCULAR HEMOGLOBIN 30.8 pg (27.0-33.0); MEAN CORPUSCULAR HGB CONC 31.8 g/dl (32.0-36.5); MEAN CORPUSCULAR VOLUME 96.7 fl (80.0-96.0); MONO # 0.8 10^3/uL (0.0-0.8); MONO % 16.9 % (2.0-8.0); NEUTROPHILS # 2.8 10^3/uL (1.5-8.5); NEUTROPHILS % 58.2 % (36.0-66.0); PLATELET COUNT, AUTOMATED 226 10^3/uL (150-450); WHITE BLOOD COUNT 4.7 10^3/uL (4.0-10.0)
[2021-01-13 06:58] LABS: INR 2.68; PROTHROMBIN TIME 29.1 SECONDS (12.5-14.3)
[2021-01-13 07:02] LABS: CALCIUM LEVEL 9.4 MG/DL (8.8-10.2); CREATININE FOR GFR 4.78 MG/DL (0.55-1.30); GLOMERULAR FILTRATION RATE 9.6 (>39); POTASSIUM SERUM 4.3 MEQ/L (3.5-5.1)
[2021-01-13 08:48] VITALS: BP 140/64
[2021-01-13] MEDS: CARVedilol 12.5 MG TAB PO SCH ×2 (08:49→20:07)
[2021-01-13] MEDS: CINACALCET 30 MG TAB (SENSIPAR) PO SCH (08:50)
[2021-01-13] MEDS: buPROPion 100 MG TAB PO SCH ×2 (08:50→20:06)
[2021-01-13] MEDS: MULTIVITAMINS/MINERALS THERAP 1 TAB PO SCH (08:50)
[2021-01-13] MEDS: DOCUSATE SODIUM 100MG CAPSULE PO SCH ×2 (08:51→20:05)
[2021-01-13] MEDS: PROPAFENONE 150 MG TAB PO SCH ×2 (08:51→20:06)
[2021-01-13] MEDS: PANTOPRAZOLE 40MG TAB (PROTONIX) PO SCH (08:51)
[2021-01-13] MEDS: MEMANTINE 5MG TABLET (NAMENDA) PO SCH (08:51)
[2021-01-13] MEDS: TAMSULOSIN 0.4 MG CAP PO SCH (08:51)
[2021-01-13] MEDS: REMEDY PHYTOPLEX Z-GUARD PASTE 113GM TUBE (FROM STOREROOM PRODUCT) TOP SCH ×3 (08:53→20:06)
--- NOTE | 2021-01-13 10:12 | IPNPDOC ---
PM&R Progress Note DATE OF SERVICE: Jan 13, 2021 Director Sales Progress Note Subjective: Patient reporting she wants to know where she is going to go and states she refers going to the [facility]. REVIEW OF SYSTEMS: The following is a completed review of systems and has been reviewed. Review of systems otherwise unremarkable. PAIN: Patient self reports no pain EYES: No recent vision changes EARS, NOSE, & THROAT: No throat pain, or dysphagia, or rhinorrhea CARDIOVASCULAR: Denies chest pain or palpitations PULMONARY: Denies shortness of breath GASTROINTESTINAL: Denies constipation/diarrhea, +nausea GENITOURINARY: denies dysuria MUSCULOSKELETAL: generalized weakness NEUROLOGICAL: bilat UE tremor (improving) HEMATOLOGICAL: +anemia SKIN: +sacral ulcer PSYCHIATRIC: +confused All other review of systems found to be negative. PHYSICAL EXAMINATION: VITAL SIGNS: Please see below. GENERAL: Pleasant and cooperative. No acute distress. HEENT: PERRL. Extraocular movements intact. Clear conjunctiva CARDIOVASCULAR: Regular rate and rhythm. No murmurs, rubs, or gallops LUNGS: Clear to auscultation bilaterally. No wheezes. No rhonchi ABDOMEN: Soft, nontender, nondistended. Positive bowel sounds. Normal active bowel sounds NEUROLOGICAL: Alert and oriented to self and place, not time able to follow directions, Cranial nerves II through XII grossly intact. Sensation grossly intact EXTREMITIES: 5-\5 strength bilateral upper extremities. 5-\5 strength right lower extremity. 5-/5 strength in left lower extremity. ASSESSMENT:70-year-old F with past medical history of ESRD who presents status post multiple falls with worsening weakness and confusion PLAN: 1. Rehab- PT/OT advance mobility and ADLs, strengthen/stretch/maintain ROM all 4limbs- ambulating with RW -ACCREDITATION MANAGER eval for cog and swallow 2. Neuro- encephalopathic with weakness, improving -c/u off Megace which per daughter was restarted a few months ago due to poor po intake as can cause confusion and muscle weakness-patient eating well and subjectively feels stronger while on ARU -c/u Wellbutrin 50mg BID (tapered) -neuro consults, recs appreciated, patient being treated for Lewy Body dementia with Seroquel 25mg qHS-hallucinations seem to be improving, Namenda added for cognitive enhancement-patient's cognition continues to fluctuate, but remains relatively stable, she has insight into her deficits -Zyprexa prn for agitation 3. CArdiac- hx of afib on Coumadin, daily PT/INRs, c/u rhythmol and Coreg- medicine consulted to assist in overall management -diastolic CHF c/u fluid restriction 4. Resp- monitor for infection 5. Renal- ESRD on HD, renal consulted-recs appreciated -c/u flomax for urinary retention 6. Heme- anemia due to chronic disease s/p transfusions, renal managing 7. GI ppx- protonix 8. DVT ppx- on warfarin 9. Dispo- waiting for a bed at [facility] level, patient still making gains in therapy Allergies Coded Allergies: Sulfa (Sulfonamide Antibiotics) (Verified Adverse Reaction, Intermediate, upset stomach, 06/27/19) Vital Signs Vital Signs Date Time Temp Pulse Resp B/P (MAP) Pulse Ox O2 Delivery O2 Flow Rate FiO2 01/13/21 08:49 57 140/64 01/13/21 06:10 97.2 18 95 Room Air Laboratory Data CBC/BMP Laboratory Tests 01/13/21 06:12 Labs 24H Laboratory Tests 2 01/13/21 06:12: Immature Granulocyte % (Auto) 0.2, Neutrophils (%) (Auto) 58.2, Lymphocytes (%) (Auto) 21.8L, Monocytes (%) (Auto) 16.9H, Eosinophils (%) (Auto) 0.6, Basophils (%) (Auto) 2.3H, Neutrophils # (Auto) 2.8, Lymphocytes # (Auto) 1.0L, Monocytes # (Auto) 0.8, Eosinophils # (Auto) 0.0, Basophils # (Auto) 0.1, Nucleated Red Blood Cells % (auto) 0.0, Prothrombin Time 29.1H, Prothromb Time International Ratio 2.68, Anion Gap 8, Glomerular Filtration Rate 9.6L, Calcium Level 9.4 Current Medications Current Medications Current Medications Medications (Trade) Dose Ordered Sig/Eileen Route PRN Reason Start Time Stop Time Status Last Admin Dose Admin Acetaminophen (Tylenol Tab) 650 mg Q4HP PRN PO fever/MILD PAIN (PS 1-4) 12/28/20 16:10 Bupropion HCl (Wellbutrin Xl) 300 mg DAILY PO 12/29/20 09:00 12/29/20 10:05 DC 12/29/20 09:28 Bupropion HCl (Wellbutrin) 50 mg BID PO 01/06/21 21:00 01/13/21 08:50 Bupropion HCl (Wellbutrin) 50 mg BID@1700,2200 PO 01/01/21 17:00 01/01/21 22:01 DC 01/01/21 22:38 Bupropion HCl (Wellbutrin) 50 mg TID PO 01/01/21 09:00 01/01/21 12:18 DC 01/01/21 11:54 Bupropion HCl (Wellbutrin) 50 mg TID PO 01/02/21 09:00 01/06/21 13:54 DC 01/06/21 08:49 Bupropion HCl (Wellbutrin) 75 mg TID PO 12/29/20 16:00 01/01/21 09:30 DC 12/31/20 20:40 Bupropion HCl (Wellbutrin) 75 mg TID PO 12/30/20 16:00 12/29/20 15:39 DC Bupropion HCl (Wellbutrin) 100 mg TID PO 12/30/20 09:00 12/29/20 14:38 DC Carvedilol (COReg) 12.5 mg BID PO 12/28/20 21:00 01/12/21 20:50 Cinacalcet (Sensipar) 30 mg WeFr@0900 PO 01/01/21 09:00 01/13/21 08:50 Diphenhydramine HCl (Benadryl) 50 mg ASDIRECTED PRN IM ANAPHYLAXIS 01/11/21 00:00 01/11/21 23:59 DC Docusate Sodium (Colace) 100 mg BID PO 12/28/20 21:00 01/12/21 20:51 Epinephrine HCl (Adrenalin) 0.3 mg ASDIRECTED PRN IM ANAPHYLAXIS 01/11/21 00:00 01/11/21 23:59 DC Heparin Sodium (Heparin) Please refer to ... ASDIRECTED XX 01/09/21 05:55 01/10/21 05:54 DC Heparin Sodium (Heparin) Please refer to ... ASDIRECTED XX 01/12/21 07:45 01/13/21 07:44 DC Heparin Sodium (Heparin) Please refer to ... ASDIRECTED XX 12/30/20 10:15 12/31/20 10:14 DC Heparin Sodium (Heparin) Please refer to ... ASDIRECTED XX 01/01/21 12:20 01/02/21 12:19 DC Iron (Venofer) 100 mg HD IV 12/30/20 11:25 01/01/21 11:26 DC 12/30/20 13:11 Iron (Venofer) 100 mg HD IV 01/01/21 13:10 01/12/21 14:04 Lidocaine HCl (Lidocaine 1% Sdv) 0.5 ml ASDIRECTED PRN SC SEE LABEL COMMENTS 01/09/21 05:55 01/10/21 05:54 DC Lidocaine HCl (Lidocaine 1% Sdv) 0.5 ml ASDIRECTED PRN SC SEE LABEL COMMENTS 01/12/21 07:45 01/13/21 07:44 DC Lidocaine HCl (Lidocaine 1% Sdv) 0.5 ml ASDIRECTED PRN SC SEE LABEL COMMENTS 12/30/20 10:15 12/31/20 10:14 DC Lidocaine HCl (Lidocaine 1% Sdv) 0.5 ml ASDIRECTED PRN SC SEE LABEL COMMENTS 01/01/21 12:20 01/02/21 12:19 DC Megestrol Acetate (Megace Acetate Suspension) 40 mg QID PO 12/29/20 09:49 12/29/20 14:38 DC Megestrol Acetate (Megace) 40 mg QID PO 12/28/20 17:00 12/29/20 09:18 DC 12/28/20 21:14 Megestrol Acetate (Megace) 40 mg QID PO 12/29/20 09:15 12/29/20 09:49 DC Memantine (Namenda) 5 mg DAILY PO 01/11/21 09:00 01/13/21 08:51 Multivitamins (Theragram-M) 1 tab DAILY PO 01/09/21 09:00 01/13/21 08:50 Mupirocin (Bactroban 2% Ointment) 1 dose BID TOP 12/28/20 21:00 01/05/21 16:04 DC 01/05/21 08:59 Olanzapine (ZyPREXA) 2.5 mg Q6HP PRN PO AGITATION 12/29/20 15:00 Pantoprazole Sodium (Protonix) 40 mg DAILY PO 12/29/20 09:00 01/13/21 08:51 Polyethylene Glycol (Miralax) 1 pkt DAILY PRN PO CONSTIPATION 12/28/20 16:10 01/05/21 18:29 Propafenone HCl (Rythmol) 300 mg BID PO 12/28/20 21:00 01/13/21 08:51 Quetiapine Fumarate (SEROquel) 25 mg QHS PO 12/31/20 21:00 01/12/21 20:50 Senna (Senokot) 1 tab QHS PO 12/28/20 21:00 01/12/21 20:51 Sodium Chloride (Nacl 0.9%) 200 ml ASDIRECTED PRN IV SEE LABEL COMMENTS 01/09/21 05:55 01/10/21 05:54 DC Sodium Chloride (Nacl 0.9%) 200 ml ASDIRECTED PRN IV SEE LABEL COMMENTS 12/30/20 10:15 12/31/20 10:14 DC Sodium Chloride (Nacl 0.9%) 200 ml ASDIRECTED PRN IV SEE LABEL COMMENTS 01/01/21 12:20 01/02/21 12:19 DC Tamsulosin HCl (Flomax) 0.4 mg DAILY PO 12/29/20 09:00 01/13/21 08:51 Warfarin Sodium (Coumadin) 1 mg DAILY@17 PO 01/09/21 17:00 01/12/21 17:29 Warfarin Sodium (Coumadin) 1 mg DAILY@17 PO 01/09/21 17:00 Cancel Warfarin Sodium (Coumadin) 1 mg DAILY@17 PO 12/30/20 17:00 01/03/21 19:09 DC 01/03/21 16:55 Warfarin Sodium (Coumadin) 2 mg DAILY@17 PO 01/04/21 17:00 01/06/21 12:17 DC 01/05/21 16:17 Warfarin Sodium (Coumadin) 2.5 mg DAILY@17 PO 01/09/21 17:00 01/12/21 17:30 Warfarin Sodium (Coumadin) 3.5 mg DAILY@17 PO 01/09/21 17:00 01/09/21 17:29 DC Warfarin Sodium (Coumadin) 5 mg DAILY@17 PO 01/06/21 17:00 01/07/21 07:26 DC 01/06/21 16:21 Warfarin Sodium (Coumadin) 5 mg DAILY@17 PO 01/08/21 17:00 01/09/21 10:38 DC 01/08/21 17:36 Warfarin Sodium (Coumadin) 7.5 mg DAILY@17 PO 12/29/20 17:00 12/30/20 07:58 DC 12/29/20 17:04 LINA CASTILLO MD Jan 13, 2021 10:12
[2021-01-13 14:00] VITALS: BP 131/80
[2021-01-13] MEDS: WARFARIN SOD 2.5MG TAB PO SCH (16:48)
[2021-01-13] MEDS: WARFARIN SOD 1MG TAB PO SCH (16:48)
[2021-01-13 20:00] VITALS: BP 124/58
[2021-01-13] MEDS: SENNA 8.6 MG TAB (SENOKOT) PO SCH (20:05)
[2021-01-13] MEDS: QUEtiapine FUMARATE 25 MG TAB PO SCH (20:05)
[2021-01-14 05:14] VITALS: BP 136/65
[2021-01-14] MEDS ORDERED: LIDOCAINE 1% SDV 5ML VIAL SC PRN (06:00)
[2021-01-14] MEDS: MULTIVITAMINS/MINERALS THERAP 1 TAB PO SCH (08:51)
[2021-01-14] MEDS: DOCUSATE SODIUM 100MG CAPSULE PO SCH ×2 (08:51→20:07)
[2021-01-14] MEDS: TAMSULOSIN 0.4 MG CAP PO SCH (08:51)
[2021-01-14] MEDS: CARVedilol 12.5 MG TAB PO SCH ×2 (08:51→20:08)
[2021-01-14] MEDS: PANTOPRAZOLE 40MG TAB (PROTONIX) PO SCH (08:51)
[2021-01-14] MEDS: MEMANTINE 5MG TABLET (NAMENDA) PO SCH (08:51)
[2021-01-14] MEDS: buPROPion 100 MG TAB PO SCH ×2 (08:51→20:07)
[2021-01-14] MEDS: PROPAFENONE 150 MG TAB PO SCH ×2 (08:51→20:07)
[2021-01-14] MEDS: REMEDY PHYTOPLEX Z-GUARD PASTE 113GM TUBE (FROM STOREROOM PRODUCT) TOP SCH ×3 (08:52→20:08)
[2021-01-14 11:44] LABS: INR 2.3; PROTHROMBIN TIME 25.9 SECONDS (12.5-14.3)
[2021-01-14 14:00] VITALS: BP 112/55
[2021-01-14] MEDS: IRON SUCROSE 100MG 5ML VIAL (J1756 PER 1MG) IV SCH (14:13)
[2021-01-14 17:25] VITALS: BP 130/60
[2021-01-14] MEDS: WARFARIN SOD 2.5MG TAB PO SCH (17:41)
[2021-01-14] MEDS: WARFARIN SOD 1MG TAB PO SCH (17:41)
[2021-01-14 20:00] VITALS: BP 130/61
[2021-01-14] MEDS: SENNA 8.6 MG TAB (SENOKOT) PO SCH (20:07)
[2021-01-14] MEDS: QUEtiapine FUMARATE 25 MG TAB PO SCH (20:07)
--- NOTE | 2021-01-14 23:37 | IPN ---
NEPHROLOGY PROGRESS NOTE DATE: 01/14/2021 SUBJECTIVE: Patient was seen and examined at the bedside today morning. She is afebrile, hemodynamically stable. She denies any active complaints at this time. OBJECTIVE: VITAL SIGNS: Temperature 97.2 degrees Fahrenheit, blood pressure 130/60, pulse 62, respiratory rate 18, sating 100% on room air. INTAKE AND OUTPUT: There is no urine output recorded. Weight in the bed scale is 60.4 kg. PHYSICAL EXAMINATION: GENERAL: Patient is awake, alert, oriented x2, sitting up in no apparent distress. HEAD AND NECK: Extraocular muscles intact. Pupils equally round and reactive to light. Mucous membranes are moist. Neck is supple. There is no JVD. RESPIRATORY: Chest is clear to auscultation bilaterally. Bilateral equal air entry. No rales or rhonchi. CARDIOVASCULAR: S1, S2, regular rate. No edema of bilateral lower extremities. ABDOMEN: Soft, positive bowel sounds, nontender. No organomegaly. MUSCULOSKELETAL: No clubbing or cyanosis. Pulses are 2+. DIESEL MECHANIC APPRENTICE: No focal deficit. Power is 5/5 in all extremities. LABORATORY DATA: CBC showed WBC 4.7, hemoglobin 12 and that is from yesterday and BMP is also from yesterday with potassium 4.3 and creatinine 4.7. CURRENT INPATIENT MEDICATIONS: Patient's medications were all reviewed by myself. There is no significant change in the medications today as compared with the last time. ASSESSMENT AND PLAN: 1. End-stage renal disease: Patient will be dialyzed in the afternoon today. Ultrafiltration goal will be 1.5 liters. 2. Progressive dementia: Continue Memantine 5 mg p.o. daily. 3. Hypertension: Continue Coreg. 4. Secondary hyperparathyroidism: Continue Sensipar at this dose. MTDD
[2021-01-15 05:17] VITALS: BP 126/59
[2021-01-15 06:44] LABS: BASO # 0.1 10^3/uL (0.0-0.2); BASO % 1.7 % (0.0-1.0); EOS # 0.1 10^3/uL (0.0-0.5); EOS % 2.3 % (0.0-3.0); HEMATOCRIT 38.3 % (36.0-47.0); HEMOGLOBIN 12.1 g/dl (12.0-15.5); LYMPH # 1.2 10^3/uL (1.5-5.0); LYMPH % 22.7 % (24.0-44.0); MEAN CORPUSCULAR HGB CONC 31.6 g/dl (32.0-36.5); MEAN CORPUSCULAR VOLUME 98.2 fl (80.0-96.0); MONO # 0.7 10^3/uL (0.0-0.8); MONO % 12.6 % (2.0-8.0); NEUTROPHILS # 3.1 10^3/uL (1.5-8.5); NEUTROPHILS % 60.5 % (36.0-66.0); PLATELET COUNT, AUTOMATED 266 10^3/uL (150-450); WHITE BLOOD COUNT 5.2 10^3/uL (4.0-10.0)
[2021-01-15 06:49] LABS: INR 2.26; PROTHROMBIN TIME 25.5 SECONDS (12.5-14.3)
[2021-01-15] MEDS: TAMSULOSIN 0.4 MG CAP PO SCH (09:37)
[2021-01-15] MEDS: DOCUSATE SODIUM 100MG CAPSULE PO SCH ×2 (09:37→20:26)
[2021-01-15] MEDS: MEMANTINE 5MG TABLET (NAMENDA) PO SCH (09:37)
[2021-01-15] MEDS: buPROPion 100 MG TAB PO SCH ×2 (09:37→20:26)
[2021-01-15] MEDS: MULTIVITAMINS/MINERALS THERAP 1 TAB PO SCH (09:37)
[2021-01-15] MEDS: CINACALCET 30 MG TAB (SENSIPAR) PO SCH (09:38)
[2021-01-15] MEDS: PROPAFENONE 150 MG TAB PO SCH ×2 (09:38→20:26)
[2021-01-15] MEDS: CARVedilol 12.5 MG TAB PO SCH ×2 (09:38→20:27)
[2021-01-15] MEDS: PANTOPRAZOLE 40MG TAB (PROTONIX) PO SCH (09:38)
[2021-01-15] MEDS: REMEDY PHYTOPLEX Z-GUARD PASTE 113GM TUBE (FROM STOREROOM PRODUCT) TOP SCH ×3 (09:40→20:28)
[2021-01-15 14:00] VITALS: BP 146/67
[2021-01-15] MEDS: WARFARIN SOD 1MG TAB PO SCH (16:12)
[2021-01-15] MEDS: WARFARIN SOD 2.5MG TAB PO SCH (16:12)
[2021-01-15 20:00] VITALS: BP 142/65
[2021-01-15] MEDS ORDERED: LIDOCAINE 1% SDV 5ML VIAL SC PRN (20:15)
[2021-01-15] MEDS: SENNA 8.6 MG TAB (SENOKOT) PO SCH (20:26)
[2021-01-15] MEDS: QUEtiapine FUMARATE 25 MG TAB PO SCH (20:26)
[2021-01-16 06:03] VITALS: BP 131/60
[2021-01-16 07:45] LABS: INR 2.65; PROTHROMBIN TIME 28.9 SECONDS (12.5-14.3)
[2021-01-16] MEDS: buPROPion 100 MG TAB PO SCH ×2 (07:45→20:28)
[2021-01-16] MEDS: PANTOPRAZOLE 40MG TAB (PROTONIX) PO SCH (07:45)
[2021-01-16] MEDS: MULTIVITAMINS/MINERALS THERAP 1 TAB PO SCH (07:46)
[2021-01-16] MEDS: TAMSULOSIN 0.4 MG CAP PO SCH (07:46)
[2021-01-16] MEDS: DOCUSATE SODIUM 100MG CAPSULE PO SCH ×2 (07:46→20:28)
[2021-01-16] MEDS: MEMANTINE 5MG TABLET (NAMENDA) PO SCH (07:46)
[2021-01-16] MEDS: PROPAFENONE 150 MG TAB PO SCH ×2 (07:46→20:27)
[2021-01-16] MEDS: CARVedilol 12.5 MG TAB PO SCH ×2 (07:46→20:29)
[2021-01-16] MEDS: REMEDY PHYTOPLEX Z-GUARD PASTE 113GM TUBE (FROM STOREROOM PRODUCT) TOP SCH ×3 (07:47→20:29)
[2021-01-16] MEDS: MIRALAX *UNIT DOSE* 17GM PACKET PO PRN (13:01)
[2021-01-16 14:00] VITALS: BP 124/60
[2021-01-16] MEDS: WARFARIN SOD 1MG TAB PO SCH (16:36)
[2021-01-16] MEDS: WARFARIN SOD 2.5MG TAB PO SCH (16:37)
[2021-01-16 20:00] VITALS: BP 150/68
[2021-01-16] MEDS: SENNA 8.6 MG TAB (SENOKOT) PO SCH (20:28)
[2021-01-16] MEDS: QUEtiapine FUMARATE 25 MG TAB PO SCH (20:28)
--- NOTE | 2021-01-16 23:05 | IPN ---
NEPHROLOGY PROGRESS NOTE DATE: 01/16/2021 SUBJECTIVE: Patient was seen and examined at the bedside today morning during hemodialysis procedure. She is tolerating hemodialysis procedure well. She denies any active complaints at this time. OBJECTIVE: VITAL SIGNS: Temperature 97.8 degrees Fahrenheit, blood pressure 124/60, pulse 61, respiratory rate 18, saturating 98% on room air. INTAKE AND OUTPUT: There is no urine output recorded. Weight in the bed scale is 60.1 kg. PHYSICAL EXAMINATION: GENERAL: Patient is awake, alert, oriented times two, laying up in bed getting hemodialysis done. HEAD AND NECK EXAM: Extraocular muscles intact. Pupils equally round and reactive to light. Mucous membranes are moist. Neck is supple. There is no jugular venous distention (JVD). CARDIOVASCULAR: S1, S2. Regular rate. No edema of the bilateral lower extremities. RESPIRATORY: Chest is clear to auscultation bilaterally. Bilateral equal air entry. No rales or rhonchi. ABDOMEN: Soft. Positive bowel sounds. Nontender. No organomegaly. MUSCULOSKELETAL: No clubbing or cyanosis. Pulses are 2+. CENTRAL NERVOUS SYSTEM (JD EDWARDS CONSULTANT): No focal deficits. Power is 5/5 in all extremities. LABORATORY REVIEW: CBC is from yesterday with a hemoglobin of 12.1. BMP is from three days ago, with a potassium of 4.3. CURRENT INPATIENT MEDICATIONS: Patient's medications were all reviewed by myself. There is no change in the medications today. ASSESSMENT AND PLAN: 1. End-stage renal disease. Patient is being dialyzed today. Ultrafiltration goal is 1.5 liters. 2. Hypertension. Continue current dose of Coreg. 3. Dementia. Continue memantine 5 mg by mouth daily. 4. Secondary hyperparathyroidism. Continue Sensipar.
[2021-01-17 05:45] VITALS: BP 125/60
[2021-01-17 08:02] LABS: INR 2.51; PROTHROMBIN TIME 27.7 SECONDS (12.5-14.3)
[2021-01-17] MEDS: DOCUSATE SODIUM 100MG CAPSULE PO SCH ×2 (08:54→20:08)
[2021-01-17] MEDS: PANTOPRAZOLE 40MG TAB (PROTONIX) PO SCH (08:54)
[2021-01-17] MEDS: TAMSULOSIN 0.4 MG CAP PO SCH (08:54)
[2021-01-17] MEDS: MEMANTINE 5MG TABLET (NAMENDA) PO SCH (08:54)
[2021-01-17] MEDS: PROPAFENONE 150 MG TAB PO SCH ×2 (08:54→20:08)
[2021-01-17] MEDS: CARVedilol 12.5 MG TAB PO SCH ×2 (08:54→20:09)
[2021-01-17] MEDS: buPROPion 100 MG TAB PO SCH ×2 (08:55→20:08)
[2021-01-17] MEDS: MULTIVITAMINS/MINERALS THERAP 1 TAB PO SCH ×2 (08:57→09:00)
[2021-01-17] MEDS: REMEDY PHYTOPLEX Z-GUARD PASTE 113GM TUBE (FROM STOREROOM PRODUCT) TOP SCH ×3 (08:59→20:09)
[2021-01-17 14:00] VITALS: BP 127/61
[2021-01-17] MEDS: WARFARIN SOD 2.5MG TAB PO SCH (16:21)
[2021-01-17] MEDS: WARFARIN SOD 1MG TAB PO SCH (16:21)
[2021-01-17] MEDS: MIRALAX *UNIT DOSE* 17GM PACKET PO PRN (17:51)
[2021-01-17 20:00] VITALS: BP 129/63
[2021-01-17] MEDS: SENNA 8.6 MG TAB (SENOKOT) PO SCH (20:08)
[2021-01-17] MEDS: QUEtiapine FUMARATE 25 MG TAB PO SCH (20:09)
[2021-01-18 06:00] VITALS: BP 124/67
[2021-01-18 07:48] LABS: INR 2.38; PROTHROMBIN TIME 26.5 SECONDS (12.5-14.3)
[2021-01-18] MEDS: buPROPion 100 MG TAB PO SCH ×2 (08:48→21:16)
[2021-01-18] MEDS: CARVedilol 12.5 MG TAB PO SCH ×2 (08:49→21:16)
[2021-01-18] MEDS: PROPAFENONE 150 MG TAB PO SCH ×2 (08:49→21:16)
[2021-01-18] MEDS: MEMANTINE 5MG TABLET (NAMENDA) PO SCH (08:49)
[2021-01-18] MEDS: TAMSULOSIN 0.4 MG CAP PO SCH (08:49)
[2021-01-18] MEDS: DOCUSATE SODIUM 100MG CAPSULE PO SCH ×2 (08:49→21:15)
[2021-01-18] MEDS: PANTOPRAZOLE 40MG TAB (PROTONIX) PO SCH (08:49)
[2021-01-18] MEDS: REMEDY PHYTOPLEX Z-GUARD PASTE 113GM TUBE (FROM STOREROOM PRODUCT) TOP SCH ×3 (08:52→21:00)
[2021-01-18] MEDS: MULTIVITAMINS/MINERALS THERAP 1 TAB PO SCH (08:52)
--- NOTE | 2021-01-18 10:09 | IPNPDOC ---
PM&R Progress Note DATE OF SERVICE: Jan 14, 2021 Deaf Interpreter Progress Note Subjective: Patient stating she feels sad about her condition, but does not want to increase her antidepressant dosing. She was encouraged to pursue the hobbies she enjoys at home. REVIEW OF SYSTEMS: The following is a completed review of systems and has been reviewed. Review of systems otherwise unremarkable. PAIN: Patient self reports no pain EYES: No recent vision changes EARS, NOSE, & THROAT: No throat pain, or dysphagia, or rhinorrhea CARDIOVASCULAR: Denies chest pain or palpitations PULMONARY: Denies shortness of breath GASTROINTESTINAL: Denies constipation/diarrhea, +nausea GENITOURINARY: denies dysuria MUSCULOSKELETAL: generalized weakness NEUROLOGICAL: bilat UE tremor (improving) HEMATOLOGICAL: +anemia SKIN: +sacral ulcer PSYCHIATRIC: +confused All other review of systems found to be negative. PHYSICAL EXAMINATION: VITAL SIGNS: Please see below. GENERAL: Pleasant and cooperative. No acute distress. HEENT: PERRL. Extraocular movements intact. Clear conjunctiva CARDIOVASCULAR: Regular rate and rhythm. No murmurs, rubs, or gallops LUNGS: Clear to auscultation bilaterally. No wheezes. No rhonchi ABDOMEN: Soft, nontender, nondistended. Positive bowel sounds. Normal active bowel sounds NEUROLOGICAL: Alert and oriented to self and place, not time able to follow directions, Cranial nerves II through XII grossly intact. Sensation grossly intact EXTREMITIES: 5-\5 strength bilateral upper extremities. 5-\5 strength right lower extremity. 5-/5 strength in left lower extremity. ASSESSMENT:70-year-old F with past medical history of ESRD who presents status post multiple falls with worsening weakness and confusion PLAN: 1. Rehab- PT/OT advance mobility and ADLs, strengthen/stretch/maintain ROM all 4limbs- ambulating with RW -CORRECTIONS SERGEANT eval for cog and swallow 2. Neuro- encephalopathic with weakness, improving -c/u off Megace which per daughter was restarted a few months ago due to poor po intake as can cause confusion and muscle weakness-patient eating well and subjectively feels stronger while on ARU -c/u Wellbutrin 50mg BID (tapered) -neuro consults, recs appreciated, patient being treated for Lewy Body dementia with Seroquel 25mg qHS-hallucinations seem to be improving, Namenda added for cognitive enhancement-patient's cognition continues to fluctuate, but remains relatively stable, she has insight into her deficits -Zyprexa prn for agitation 3. CArdiac- hx of afib on Coumadin, daily PT/INRs, c/u rhythmol and Coreg- medicine consulted to assist in overall management -diastolic CHF c/u fluid restriction 4. Resp- monitor for infection 5. Renal- ESRD on HD, renal consulted-recs appreciated -c/u flomax for urinary retention 6. Heme- anemia due to chronic disease s/p transfusions, renal managing 7. GI ppx- protonix 8. DVT ppx- on warfarin 9. Dispo- waiting for a bed at [facility] level, patient still making gains in therapy Allergies Coded Allergies: Sulfa (Sulfonamide Antibiotics) (Verified Adverse Reaction, Intermediate, upset stomach, 06/27/19) Vital Signs Vital Signs Date Time Temp Pulse Resp B/P (MAP) Pulse Ox O2 Delivery O2 Flow Rate FiO2 01/18/21 08:49 70 124/67 01/18/21 06:00 98.0 19 99 Room Air Laboratory Data Labs 24H Laboratory Tests 2 01/18/21 06:47: Prothrombin Time 26.5H, Prothromb Time International Ratio 2.38 Current Medications Current Medications Current Medications Medications (Trade) Dose Ordered Sig/Eileen Route PRN Reason Start Time Stop Time Status Last Admin Dose Admin Acetaminophen (Tylenol Tab) 650 mg Q4HP PRN PO fever/MILD PAIN (PS 1-4) 12/28/20 16:10 Bupropion HCl (Wellbutrin Xl) 300 mg DAILY PO 12/29/20 09:00 12/29/20 10:05 DC 12/29/20 09:28 Bupropion HCl (Wellbutrin) 50 mg BID PO 01/06/21 21:00 01/18/21 08:48 Bupropion HCl (Wellbutrin) 50 mg BID@1700,2200 PO 01/01/21 17:00 01/01/21 22:01 DC 01/01/21 22:38 Bupropion HCl (Wellbutrin) 50 mg TID PO 01/01/21 09:00 01/01/21 12:18 DC 01/01/21 11:54 Bupropion HCl (Wellbutrin) 50 mg TID PO 01/02/21 09:00 01/06/21 13:54 DC 01/06/21 08:49 Bupropion HCl (Wellbutrin) 75 mg TID PO 12/29/20 16:00 01/01/21 09:30 DC 12/31/20 20:40 Bupropion HCl (Wellbutrin) 75 mg TID PO 12/30/20 16:00 12/29/20 15:39 DC Bupropion HCl (Wellbutrin) 100 mg TID PO 12/30/20 09:00 12/29/20 14:38 DC Carvedilol (COReg) 12.5 mg BID PO 12/28/20 21:00 01/18/21 08:49 Cinacalcet (Sensipar) 30 mg WeFr@0900 PO 01/01/21 09:00 01/15/21 09:38 Diphenhydramine HCl (Benadryl) 50 mg ASDIRECTED PRN IM ANAPHYLAXIS 01/11/21 00:00 01/11/21 23:59 DC Docusate Sodium (Colace) 100 mg BID PO 12/28/20 21:00 01/18/21 08:49 Epinephrine HCl (Adrenalin) 0.3 mg ASDIRECTED PRN IM ANAPHYLAXIS 01/11/21 00:00 01/11/21 23:59 DC Heparin Sodium (Heparin) Please refer to ... ASDIRECTED XX 01/09/21 05:55 01/10/21 05:54 DC Heparin Sodium (Heparin) Please refer to ... ASDIRECTED XX 01/12/21 07:45 01/13/21 07:44 DC Heparin Sodium (Heparin) Please refer to ... ASDIRECTED XX 01/14/21 06:00 01/15/21 05:59 DC Heparin Sodium (Heparin) Please refer to ... ASDIRECTED XX 01/15/21 20:15 01/16/21 20:14 DC Heparin Sodium (Heparin) Please refer to ... ASDIRECTED XX 12/30/20 10:15 12/31/20 10:14 DC Heparin Sodium (Heparin) Please refer to ... ASDIRECTED XX 01/01/21 12:20 01/02/21 12:19 DC Iron (Venofer) 100 mg HD IV 12/30/20 11:25 01/01/21 11:26 DC 12/30/20 13:11 Iron (Venofer) 100 mg HD IV 01/01/21 13:10 01/14/21 14:13 Lidocaine HCl (Lidocaine 1% Sdv) 0.5 ml ASDIRECTED PRN SC SEE LABEL COMMENTS 01/09/21 05:55 01/10/21 05:54 DC Lidocaine HCl (Lidocaine 1% Sdv) 0.5 ml ASDIRECTED PRN SC SEE LABEL COMMENTS 01/12/21 07:45 01/13/21 07:44 DC Lidocaine HCl (Lidocaine 1% Sdv) 0.5 ml ASDIRECTED PRN SC SEE LABEL COMMENTS 01/14/21 06:00 01/14/21 23:04 DC Lidocaine HCl (Lidocaine 1% Sdv) 0.5 ml ASDIRECTED PRN SC SEE LABEL COMMENTS 01/15/21 20:15 01/16/21 20:14 DC Lidocaine HCl (Lidocaine 1% Sdv) 0.5 ml ASDIRECTED PRN SC SEE LABEL COMMENTS 12/30/20 10:15 12/31/20 10:14 DC Lidocaine HCl (Lidocaine 1% Sdv) 0.5 ml ASDIRECTED PRN SC SEE LABEL COMMENTS 01/01/21 12:20 01/02/21 12:19 DC Megestrol Acetate (Megace Acetate Suspension) 40 mg QID PO 12/29/20 09:49 12/29/20 14:38 DC Megestrol Acetate (Megace) 40 mg QID PO 12/28/20 17:00 12/29/20 09:18 DC 12/28/20 21:14 Megestrol Acetate (Megace) 40 mg QID PO 12/29/20 09:15 12/29/20 09:49 DC Memantine (Namenda) 5 mg DAILY PO 01/11/21 09:00 01/18/21 08:49 Multivitamins (Theragram-M) 1 tab DAILY PO 01/09/21 09:00 01/16/21 07:46 Mupirocin (Bactroban 2% Ointment) 1 dose BID TOP 12/28/20 21:00 01/05/21 16:04 DC 01/05/21 08:59 Olanzapine (ZyPREXA) 2.5 mg Q6HP PRN PO AGITATION 12/29/20 15:00 Pantoprazole Sodium (Protonix) 40 mg DAILY PO 12/29/20 09:00 01/18/21 08:49 Polyethylene Glycol (Miralax) 1 pkt DAILY PRN PO CONSTIPATION 12/28/20 16:10 01/17/21 17:51 Propafenone HCl (Rythmol) 300 mg BID PO 12/28/20 21:00 01/18/21 08:49 Quetiapine Fumarate (SEROquel) 25 mg QHS PO 12/31/20 21:00 01/17/21 20:09 Senna (Senokot) 1 tab QHS PO 12/28/20 21:00 01/17/21 20:08 Sodium Chloride (Nacl 0.9%) 200 ml ASDIRECTED PRN IV SEE LABEL COMMENTS 01/09/21 05:55 01/10/21 05:54 DC Sodium Chloride (Nacl 0.9%) 200 ml ASDIRECTED PRN IV SEE LABEL COMMENTS 12/30/20 10:15 12/31/20 10:14 DC Sodium Chloride (Nacl 0.9%) 200 ml ASDIRECTED PRN IV SEE LABEL COMMENTS 01/01/21 12:20 01/02/21 12:19 DC Tamsulosin HCl (Flomax) 0.4 mg DAILY PO 12/29/20 09:00 01/18/21 08:49 Warfarin Sodium (Coumadin) 1 mg DAILY@17 PO 01/09/21 17:00 01/17/21 16:21 Warfarin Sodium (Coumadin) 1 mg DAILY@17 PO 01/09/21 17:00 Cancel Warfarin Sodium (Coumadin) 1 mg DAILY@17 PO 12/30/20 17:00 01/03/21 19:09 DC 01/03/21 16:55 Warfarin Sodium (Coumadin) 2 mg DAILY@17 PO 01/04/21 17:00 01/06/21 12:17 DC 01/05/21 16:17 Warfarin Sodium (Coumadin) 2.5 mg DAILY@17 PO 01/09/21 17:00 01/17/21 16:21 Warfarin Sodium (Coumadin) 3.5 mg DAILY@17 PO 01/09/21 17:00 01/09/21 17:29 DC Warfarin Sodium (Coumadin) 5 mg DAILY@17 PO 01/06/21 17:00 01/07/21 07:26 DC 01/06/21 16:21 Warfarin Sodium (Coumadin) 5 mg DAILY@17 PO 01/08/21 17:00 01/09/21 10:38 DC 01/08/21 17:36 Warfarin Sodium (Coumadin) 7.5 mg DAILY@17 PO 12/29/20 17:00 12/30/20 07:58 DC 12/29/20 17:04 LINA CASTILLO MD Jan 18, 2021 10:09
[2021-01-18 14:00] VITALS: BP 133/87
[2021-01-18] MEDS: WARFARIN SOD 2.5MG TAB PO SCH (16:01)
[2021-01-18] MEDS: WARFARIN SOD 1MG TAB PO SCH (16:01)
[2021-01-18 20:00] VITALS: BP 130/69
[2021-01-18] MEDS: QUEtiapine FUMARATE 25 MG TAB PO SCH (21:15)
[2021-01-18] MEDS: SENNA 8.6 MG TAB (SENOKOT) PO SCH (21:15)
[2021-01-19 06:00] VITALS: BP 134/72
[2021-01-19 07:04] LABS: BASO # 0.1 10^3/uL (0.0-0.2); BASO % 1.2 % (0.0-1.0); EOS # 0.2 10^3/uL (0.0-0.5); EOS % 2.1 % (0.0-3.0); HEMATOCRIT 34.1 % (36.0-47.0); LYMPH # 1.4 10^3/uL (1.5-5.0); MEAN CORPUSCULAR HEMOGLOBIN 31.5 pg (27.0-33.0); MEAN CORPUSCULAR HGB CONC 32.3 g/dl (32.0-36.5); MEAN CORPUSCULAR VOLUME 97.7 fl (80.0-96.0); MONO # 0.6 10^3/uL (0.0-0.8); MONO % 7.8 % (2.0-8.0); NEUTROPHILS # 5.2 10^3/uL (1.5-8.5); NEUTROPHILS % 69.2 % (36.0-66.0); PLATELET COUNT, AUTOMATED 274 10^3/uL (150-450); RED BLOOD COUNT 3.49 10^6/uL (4.00-5.40); WHITE BLOOD COUNT 7.5 10^3/uL (4.0-10.0)
[2021-01-19 07:23] LABS: CALCIUM LEVEL 9.4 MG/DL (8.8-10.2); CREATININE FOR GFR 6.95 MG/DL (0.55-1.30); GLOMERULAR FILTRATION RATE 6.2 (>39); POTASSIUM SERUM 4.9 MEQ/L (3.5-5.1)
[2021-01-19 07:24] LABS: INR 2.49; PROTHROMBIN TIME 27.5 SECONDS (12.5-14.3)
[2021-01-19] MEDS: MULTIVITAMINS/MINERALS THERAP 1 TAB PO SCH (09:00)
[2021-01-19] MEDS: REMEDY PHYTOPLEX Z-GUARD PASTE 113GM TUBE (FROM STOREROOM PRODUCT) TOP SCH ×3 (09:00→20:19)
[2021-01-19] MEDS: TAMSULOSIN 0.4 MG CAP PO SCH (09:16)
[2021-01-19] MEDS: buPROPion 100 MG TAB PO SCH ×2 (09:16→20:18)
[2021-01-19] MEDS: CARVedilol 12.5 MG TAB PO SCH ×2 (09:16→20:18)
[2021-01-19] MEDS: MEMANTINE 5MG TABLET (NAMENDA) PO SCH (09:16)
[2021-01-19] MEDS: DOCUSATE SODIUM 100MG CAPSULE PO SCH ×2 (09:16→20:17)
[2021-01-19] MEDS: PANTOPRAZOLE 40MG TAB (PROTONIX) PO SCH (09:16)
[2021-01-19] MEDS: PROPAFENONE 150 MG TAB PO SCH ×2 (09:17→20:18)
[2021-01-19 14:00] VITALS: BP 121/51
[2021-01-19] MEDS: WARFARIN SOD 2.5MG TAB PO SCH (16:35)
[2021-01-19] MEDS: WARFARIN SOD 1MG TAB PO SCH (16:36)
--- NOTE | 2021-01-19 16:39 | IPN ---
PROGRESS NOTE DATE: 01/19/2021 SUBJECTIVE: Ms. Gunter is seen and examined in the rehabilitation unit, working with the physical therapist and later receiving dialysis. She denies any complaints. No chest pain. No shortness of breath. Temperature 97.4, pulse 58, respiratory rate 18, blood pressure 121/51, saturating 98% on room air. Intake yesterday was not fully recorded. Dialysis today removed 1.5 liters. Weight in the bed scale today is 60 kg. GENERAL: Patient is seen sitting in the wheelchair working with the physical therapist, awake, alert, oriented to person, place, and situation in no distress. Extraocular muscles are intact. Pupils are round and reactive to light. Mucous membranes are moist. Neck is supple. There is no jugular venous distention. Heart sounds are regular, S1, S2. There is no leg edema. There is no dependent edema. LUNGS: Clear to auscultation bilaterally. No crackle or rale. ABDOMEN: Soft and nontender. EXTREMITIES: Negative for clubbing or cyanosis. There is a fistula presently in use with patency. LABORATORY STUDIES: Today's labs show a white count of 7.5, hemoglobin 11.0, platelets 274. Sodium 136, potassium 4.9, bicarbonate 23. INPATIENT MEDICATIONS: Reviewed by myself, and no change noted as compared to prior days. PROBLEMS: 1. End-stage renal disease, on hemodialysis on a Monday, , Monday schedule. Patient is dialyzed today. There was 1.5 liters of fluid removed. Her volume status and electrolytes are acceptable. Continue current dialysis prescription. 2. Hypertension. Continue current dose of carvedilol. Blood pressures are well controlled. There is no hypotension of hemodialysis. 3. Secondary hyperparathyroidism of renal origin. She continues on twice weekly cinacalcet. 4. Generalized deconditioning. She continues with rehabilitation. 5. Atrial fibrillation. Patient is anticoagulated with Coumadin with a therapeutic INR, and she is rate controlled with beta patrick and also on propafenone.
[2021-01-19 20:00] VITALS: BP 127/60
[2021-01-19] MEDS: QUEtiapine FUMARATE 25 MG TAB PO SCH (20:17)
[2021-01-19] MEDS: SENNA 8.6 MG TAB (SENOKOT) PO SCH (20:18)
[2021-01-20 06:00] VITALS: BP 139/63
[2021-01-20 09:56] VITALS: BP 119/61
[2021-01-20] MEDS: buPROPion 100 MG TAB PO SCH ×2 (09:59→20:10)
[2021-01-20] MEDS: DOCUSATE SODIUM 100MG CAPSULE PO SCH ×2 (09:59→20:10)
[2021-01-20] MEDS: MULTIVITAMINS/MINERALS THERAP 1 TAB PO SCH (09:59)
[2021-01-20] MEDS: MEMANTINE 5MG TABLET (NAMENDA) PO SCH (09:59)
[2021-01-20] MEDS: CINACALCET 30 MG TAB (SENSIPAR) PO SCH (09:59)
[2021-01-20] MEDS: CARVedilol 12.5 MG TAB PO SCH ×2 (09:59→20:11)
[2021-01-20] MEDS: TAMSULOSIN 0.4 MG CAP PO SCH (10:00)
[2021-01-20] MEDS: PROPAFENONE 150 MG TAB PO SCH ×2 (10:00→20:11)
[2021-01-20] MEDS: PANTOPRAZOLE 40MG TAB (PROTONIX) PO SCH (10:00)
[2021-01-20] MEDS: REMEDY PHYTOPLEX Z-GUARD PASTE 113GM TUBE (FROM STOREROOM PRODUCT) TOP SCH ×3 (10:01→20:12)
[2021-01-20 14:00] VITALS: BP 124/57
[2021-01-20 17:32] LABS: INR 1.67; PROTHROMBIN TIME 20.1 SECONDS (12.5-14.3)
[2021-01-20] MEDS ORDERED: WARFARIN SOD 5MG TAB PO ONE (17:40)
[2021-01-20 20:00] VITALS: BP 152/66
[2021-01-20] MEDS: QUEtiapine FUMARATE 25 MG TAB PO SCH (20:10)
[2021-01-20] MEDS: SENNA 8.6 MG TAB (SENOKOT) PO SCH (20:11)
[2021-01-21 06:00] VITALS: BP 132/61
[2021-01-21 06:52] LABS: BASO # 0.1 10^3/uL (0.0-0.2); BASO % 1.1 % (0.0-1.0); EOS # 0.2 10^3/uL (0.0-0.5); EOS % 2.3 % (0.0-3.0); HEMATOCRIT 34.6 % (36.0-47.0); HEMOGLOBIN 11.1 g/dl (12.0-15.5); LYMPH # 1.5 10^3/uL (1.5-5.0); MEAN CORPUSCULAR HEMOGLOBIN 31.5 pg (27.0-33.0); MEAN CORPUSCULAR HGB CONC 32.1 g/dl (32.0-36.5); MEAN CORPUSCULAR VOLUME 98.3 fl (80.0-96.0); MONO # 0.6 10^3/uL (0.0-0.8); MONO % 8.5 % (2.0-8.0); NEUTROPHILS % 67.7 % (36.0-66.0); PLATELET COUNT, AUTOMATED 275 10^3/uL (150-450); RED BLOOD COUNT 3.52 10^6/uL (4.00-5.40); WHITE BLOOD COUNT 7.4 10^3/uL (4.0-10.0)
[2021-01-21 07:02] LABS: INR 1.81; PROTHROMBIN TIME 21.4 SECONDS (12.5-14.3)
[2021-01-21 07:24] LABS: CALCIUM LEVEL 9.1 MG/DL (8.8-10.2); CREATININE FOR GFR 6.05 MG/DL (0.55-1.30); GLOMERULAR FILTRATION RATE 7.3 (>39); POTASSIUM SERUM 4.4 MEQ/L (3.5-5.1)
[2021-01-21] MEDS: buPROPion 100 MG TAB PO SCH ×2 (08:49→20:20)
[2021-01-21] MEDS: TAMSULOSIN 0.4 MG CAP PO SCH (08:49)
[2021-01-21] MEDS: MEMANTINE 5MG TABLET (NAMENDA) PO SCH (08:49)
[2021-01-21] MEDS: DOCUSATE SODIUM 100MG CAPSULE PO SCH ×2 (08:49→20:20)
[2021-01-21] MEDS: PANTOPRAZOLE 40MG TAB (PROTONIX) PO SCH (08:50)
[2021-01-21] MEDS: MULTIVITAMINS/MINERALS THERAP 1 TAB PO SCH (08:50)
[2021-01-21] MEDS: PROPAFENONE 150 MG TAB PO SCH ×2 (08:51→20:20)
[2021-01-21] MEDS: CARVedilol 12.5 MG TAB PO SCH ×2 (08:51→20:20)
[2021-01-21] MEDS: REMEDY PHYTOPLEX Z-GUARD PASTE 113GM TUBE (FROM STOREROOM PRODUCT) TOP SCH ×3 (08:52→20:21)
--- NOTE | 2021-01-21 09:44 | IPNPDOC ---
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 REVIEW OF SYSTEMS: The following is a completed review of systems and has been reviewed. Review of systems otherwise unremarkable. PAIN: Patient self reports no pain EYES: No recent vision changes EARS, NOSE, & THROAT: No throat pain, or dysphagia, or rhinorrhea CARDIOVASCULAR: Denies chest pain or palpitations PULMONARY: Denies shortness of breath GASTROINTESTINAL: Denies constipation/diarrhea, +nausea GENITOURINARY: denies dysuria MUSCULOSKELETAL: generalized weakness NEUROLOGICAL: bilat UE tremor (improving) HEMATOLOGICAL: +anemia SKIN: +sacral ulcer PSYCHIATRIC: +confused All other review of systems found to be negative. PHYSICAL EXAMINATION: VITAL SIGNS: Please see below. GENERAL: Pleasant and cooperative. No acute distress. HEENT: PERRL. Extraocular movements intact. Clear conjunctiva CARDIOVASCULAR: Regular rate and rhythm. No murmurs, rubs, or gallops LUNGS: Clear to auscultation bilaterally. No wheezes. No rhonchi ABDOMEN: Soft, nontender, nondistended. Positive bowel sounds. Normal active bowel sounds NEUROLOGICAL: Alert and oriented to self and place, not time able to follow directions, Cranial nerves II through XII grossly intact. Sensation grossly intact EXTREMITIES: 5-\5 strength bilateral upper extremities. 5-\5 strength right lower extremity. 5-/5 strength in left lower extremity. ASSESSMENT:70-year-old F with past medical history of ESRD who presents status post multiple falls with worsening weakness and confusion PLAN: 1. 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 Neuro- encephalopathic with weakness, improving -c/u off Megace which per daughter was restarted a few months ago due to poor po intake as can cause confusion and muscle weakness-patient eating well and subjectively feels stronger while on ARU -c/u Wellbutrin 50mg BID (tapered) -neuro consults, recs appreciated, patient being treated for Lewy Body dementia with Seroquel 25mg qHS-hallucinations seem to be improving, Namenda added for cognitive enhancement-patient's cognition continues to fluctuate, but remains relatively stable, she has insight into her deficits -Zyprexa prn for agitation 3. CArdiac- hx of afib on Coumadin, daily PT/INRs, c/u rhythmol and Coreg- medicine consulted to assist in overall management -diastolic CHF c/u fluid restriction 4. Resp- monitor for infection 5. Renal- ESRD on HD, renal consulted-recs appreciated -c/u flomax for urinary retention 6. Heme- anemia due to chronic disease s/p transfusions, renal managing 7. GI ppx- protonix 8. DVT ppx- on warfarin 9. Dispo- waiting for a bed at [facility] level, patient still making gains in therapy Allergies Coded Allergies: Sulfa (Sulfonamide Antibiotics) (Verified Adverse Reaction, Intermediate, upset stomach, 06/27/19) Vital Signs Vital Signs Date Time Temp Pulse Resp B/P (MAP) Pulse Ox O2 Delivery O2 Flow Rate FiO2 01/21/21 06:00 97.4 71 18 132/61 (84) 98 Room Air Laboratory Data CBC/BMP Laboratory Tests 01/21/21 05:30 Labs 24H Laboratory Tests 2 01/20/21 16:39: Prothrombin Time 20.1H, Prothromb Time International Ratio 1.67 01/21/21 05:30: Prothrombin Time 21.4H, Prothromb Time International Ratio 1.81, Immature Granulocyte % (Auto) 0.4, Neutrophils (%) (Auto) 67.7H, Lymphocytes (%) (Auto) 20.0L, Monocytes (%) (Auto) 8.5H, Eosinophils (%) (Auto) 2.3, Basophils (%) (Auto) 1.1H, Neutrophils # (Auto) 5.0, Lymphocytes # (Auto) 1.5, Monocytes # (Auto) 0.6, Eosinophils # (Auto) 0.2, Basophils # (Auto) 0.1, Nucleated Red Blood Cells % (auto) 0.0, Anion Gap 10, Glomerular Filtration Rate 7.3L, Calcium Level 9.1 Current Medications Current Medications Current Medications Medications (Trade) Dose Ordered Sig/Eileen Route PRN Reason Start Time Stop Time Status Last Admin Dose Admin Acetaminophen (Tylenol Tab) 650 mg Q4HP PRN PO fever/MILD PAIN (PS 1-4) 12/28/20 16:10 01/18/21 21:16 Bupropion HCl (Wellbutrin Xl) 300 mg DAILY PO 12/29/20 09:00 12/29/20 10:05 DC 12/29/20 09:28 Bupropion HCl (Wellbutrin) 50 mg BID PO 01/06/21 21:00 01/21/21 08:49 Bupropion HCl (Wellbutrin) 50 mg BID@1700,2200 PO 01/01/21 17:00 01/01/21 22:01 DC 01/01/21 22:38 Bupropion HCl (Wellbutrin) 50 mg TID PO 01/01/21 09:00 01/01/21 12:18 DC 01/01/21 11:54 Bupropion HCl (Wellbutrin) 50 mg TID PO 01/02/21 09:00 01/06/21 13:54 DC 01/06/21 08:49 Bupropion HCl (Wellbutrin) 75 mg TID PO 12/29/20 16:00 01/01/21 09:30 DC 12/31/20 20:40 Bupropion HCl (Wellbutrin) 75 mg TID PO 12/30/20 16:00 12/29/20 15:39 DC Bupropion HCl (Wellbutrin) 100 mg TID PO 12/30/20 09:00 12/29/20 14:38 DC Carvedilol (COReg) 12.5 mg BID PO 12/28/20 21:00 01/21/21 08:51 Cinacalcet (Sensipar) 30 mg WeFr@0900 PO 01/01/21 09:00 01/20/21 09:59 Diphenhydramine HCl (Benadryl) 50 mg ASDIRECTED PRN IM ANAPHYLAXIS 01/11/21 00:00 01/11/21 23:59 DC Docusate Sodium (Colace) 100 mg BID PO 12/28/20 21:00 01/21/21 08:49 Epinephrine HCl (Adrenalin) 0.3 mg ASDIRECTED PRN IM ANAPHYLAXIS 01/11/21 00:00 01/11/21 23:59 DC Heparin Sodium (Heparin) Please refer to ... ASDIRECTED XX 01/09/21 05:55 01/10/21 05:54 DC Heparin Sodium (Heparin) Please refer to ... ASDIRECTED XX 01/12/21 07:45 01/13/21 07:44 DC Heparin Sodium (Heparin) Please refer to ... ASDIRECTED XX 01/14/21 06:00 01/15/21 05:59 DC Heparin Sodium (Heparin) Please refer to ... ASDIRECTED XX 01/15/21 20:15 01/16/21 20:14 DC Heparin Sodium (Heparin) Please refer to ... ASDIRECTED XX 12/30/20 10:15 12/31/20 10:14 DC Heparin Sodium (Heparin) Please refer to ... ASDIRECTED XX 01/01/21 12:20 01/02/21 12:19 DC Iron (Venofer) 100 mg HD IV 12/30/20 11:25 01/01/21 11:26 DC 12/30/20 13:11 Iron (Venofer) 100 mg HD IV 01/01/21 13:10 01/14/21 14:13 Lidocaine HCl (Lidocaine 1% Sdv) 0.5 ml ASDIRECTED PRN SC SEE LABEL COMMENTS 01/09/21 05:55 01/10/21 05:54 DC Lidocaine HCl (Lidocaine 1% Sdv) 0.5 ml ASDIRECTED PRN SC SEE LABEL COMMENTS 01/12/21 07:45 01/13/21 07:44 DC Lidocaine HCl (Lidocaine 1% Sdv) 0.5 ml ASDIRECTED PRN SC SEE LABEL COMMENTS 01/14/21 06:00 01/14/21 23:04 DC Lidocaine HCl (Lidocaine 1% Sdv) 0.5 ml ASDIRECTED PRN SC SEE LABEL COMMENTS 01/15/21 20:15 01/16/21 20:14 DC Lidocaine HCl (Lidocaine 1% Sdv) 0.5 ml ASDIRECTED PRN SC SEE LABEL COMMENTS 12/30/20 10:15 12/31/20 10:14 DC Lidocaine HCl (Lidocaine 1% Sdv) 0.5 ml ASDIRECTED PRN SC SEE LABEL COMMENTS 01/01/21 12:20 01/02/21 12:19 DC Megestrol Acetate (Megace Acetate Suspension) 40 mg QID PO 12/29/20 09:49 12/29/20 14:38 DC Megestrol Acetate (Megace) 40 mg QID PO 12/28/20 17:00 12/29/20 09:18 DC 12/28/20 21:14 Megestrol Acetate (Megace) 40 mg QID PO 12/29/20 09:15 12/29/20 09:49 DC Memantine (Namenda) 5 mg DAILY PO 01/11/21 09:00 01/21/21 08:49 Multivitamins (Theragram-M) 1 tab DAILY PO 01/09/21 09:00 01/21/21 08:50 Mupirocin (Bactroban 2% Ointment) 1 dose BID TOP 12/28/20 21:00 01/05/21 16:04 DC 01/05/21 08:59 Olanzapine (ZyPREXA) 2.5 mg Q6HP PRN PO AGITATION 12/29/20 15:00 01/21/21 08:51 DC Pantoprazole Sodium (Protonix) 40 mg DAILY PO 12/29/20 09:00 01/21/21 08:50 Polyethylene Glycol (Miralax) 1 pkt DAILY PRN PO CONSTIPATION 12/28/20 16:10 01/17/21 17:51 Propafenone HCl (Rythmol) 300 mg BID PO 12/28/20 21:00 01/21/21 08:51 Quetiapine Fumarate (SEROquel) 25 mg QHS PO 12/31/20 21:00 01/20/21 20:10 Senna (Senokot) 1 tab QHS PO 12/28/20 21:00 01/20/21 20:11 Sodium Chloride (Nacl 0.9%) 200 ml ASDIRECTED PRN IV SEE LABEL COMMENTS 01/09/21 05:55 01/10/21 05:54 DC Sodium Chloride (Nacl 0.9%) 200 ml ASDIRECTED PRN IV SEE LABEL COMMENTS 12/30/20 10:15 12/31/20 10:14 DC Sodium Chloride (Nacl 0.9%) 200 ml ASDIRECTED PRN IV SEE LABEL COMMENTS 01/01/21 12:20 01/02/21 12:19 DC Tamsulosin HCl (Flomax) 0.4 mg DAILY PO 12/29/20 09:00 01/21/21 08:49 Warfarin Sodium (Coumadin) 1 mg DAILY@17 PO 01/09/21 17:00 01/20/21 17:41 DC 01/19/21 16:36 Warfarin Sodium (Coumadin) 1 mg DAILY@17 PO 01/09/21 17:00 Cancel Warfarin Sodium (Coumadin) 1 mg DAILY@17 PO 01/21/21 17:00 01/21/21 08:51 DC Warfarin Sodium (Coumadin) 1 mg DAILY@17 PO 12/30/20 17:00 01/03/21 19:09 DC 01/03/21 16:55 Warfarin Sodium (Coumadin) 2 mg DAILY@17 PO 01/04/21 17:00 01/06/21 12:17 DC 01/05/21 16:17 Warfarin Sodium (Coumadin) 2.5 mg DAILY@17 PO 01/09/21 17:00 01/20/21 17:41 DC 01/19/21 16:35 Warfarin Sodium (Coumadin) 2.5 mg DAILY@17 PO 01/21/21 17:00 01/21/21 08:51 DC Warfarin Sodium (Coumadin) 3.5 mg DAILY@17 PO 01/09/21 17:00 01/09/21 17:29 DC Warfarin Sodium (Coumadin) 3.5 mg DAILY@17 PO 01/21/21 17:00 01/20/21 18:04 DC Warfarin Sodium (Coumadin) 4 mg DAILY@17 PO 01/21/21 17:00 Warfarin Sodium (Coumadin) 5 mg DAILY@17 PO 01/06/21 17:00 01/07/21 07:26 DC 01/06/21 16:21 Warfarin Sodium (Coumadin) 5 mg DAILY@17 PO 01/08/21 17:00 01/09/21 10:38 DC 01/08/21 17:36 Warfarin Sodium (Coumadin) 7.5 mg DAILY@17 PO 12/29/20 17:00 12/30/20 07:58 DC 12/29/20 17:04 LINA CASTILLO MD Jan 21, 2021 09:44
--- NOTE | 2021-01-21 13:40 | IPN ---
PROGRESS NOTE DATE: 01/21/2021 Ms. Santillan is seen this morning on her bedside. She is sitting in the chair at the time of my visit. She denies any dyspnea, chest pain, nausea, or vomiting. PHYSICAL EXAMINATION: Temperature 97.4 degrees Fahrenheit, heart rate 70 per minute, respiratory rate 18 per minute, blood pressure 132/60 mmHg, and oxygen saturation 98% on room air. Head is atraumatic. Neck supple and without jugular venous distention (JVD) or thyroid enlargement. Heart sounds are regular and lungs clear to auscultation. Abdomen soft, and nontender, and bowel sounds are normal. Extremities without any cyanosis or clubbing. Right forearm arteriovenous (AV) fistula is patent. Neurologically, she is awake, able to answer simple questions, but she does get somewhat confused at times and has been disoriented. She has no focal neurological deficit. Today's labs show WBC count 7.4, hemoglobin 11.1, hematocrit 34.6, platelets 275. Sodium 137, potassium 4.4, CO2 of 27, BUN 50, and creatinine 6.05. PROBLEMS: 1. End-stage renal disease. Patient has been dialyzed three times a week. She is due to dialysis today and will be dialyzed this afternoon. 2. Anemia. Her anemia has been stable and optimally corrected. No specific intervention is needed at this point. 3. Chronic dementia. She remains on supportive medications and is stable at present. 4. Hypertension. Blood pressure has been stable without any antihypertensive medications at present. She has been on carvedilol 12.5 mg twice a day, which will be continued.
[2021-01-21 13:45] VITALS: BP 141/65
[2021-01-21] MEDS ORDERED: WARFARIN SOD 3MG TAB PO SCH (17:00)
[2021-01-21] MEDS ORDERED: WARFARIN SOD 2.5MG TAB PO SCH (17:00)
[2021-01-21] MEDS ORDERED: WARFARIN SOD 1MG TAB PO SCH (17:00)
[2021-01-21] MEDS: WARFARIN SOD 4MG TAB PO SCH (17:22)
[2021-01-21 20:00] VITALS: BP 124/58
[2021-01-21] MEDS: SENNA 8.6 MG TAB (SENOKOT) PO SCH (20:20)
[2021-01-21] MEDS: QUEtiapine FUMARATE 25 MG TAB PO SCH (20:21)
[2021-01-22 06:00] VITALS: BP 132/61
[2021-01-22 07:38] LABS: BASO # 0.1 10^3/uL (0.0-0.2); BASO % 1.4 % (0.0-1.0); EOS # 0.1 10^3/uL (0.0-0.5); EOS % 2.2 % (0.0-3.0); HEMATOCRIT 35.5 % (36.0-47.0); HEMOGLOBIN 11.4 g/dl (12.0-15.5); LYMPH # 1.2 10^3/uL (1.5-5.0); LYMPH % 18.5 % (24.0-44.0); MEAN CORPUSCULAR HEMOGLOBIN 31.1 pg (27.0-33.0); MEAN CORPUSCULAR HGB CONC 32.1 g/dl (32.0-36.5); MONO # 0.6 10^3/uL (0.0-0.8); MONO % 9.1 % (2.0-8.0); NEUTROPHILS # 4.3 10^3/uL (1.5-8.5); NEUTROPHILS % 68.3 % (36.0-66.0); PLATELET COUNT, AUTOMATED 286 10^3/uL (150-450); RED BLOOD COUNT 3.66 10^6/uL (4.00-5.40); WHITE BLOOD COUNT 6.3 10^3/uL (4.0-10.0)
[2021-01-22 07:54] LABS: CALCIUM LEVEL 9.5 MG/DL (8.8-10.2); CREATININE FOR GFR 3.98 MG/DL (0.55-1.30); GLOMERULAR FILTRATION RATE 11.9 (>39); POTASSIUM SERUM 4.2 MEQ/L (3.5-5.1)
[2021-01-22 08:02] LABS: INR 2.09; PROTHROMBIN TIME 23.9 SECONDS (12.5-14.3)
--- NOTE | 2021-01-22 08:44 | IPNPDOC ---
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 REVIEW OF SYSTEMS: The following is a completed review of systems and has been reviewed. Review of systems otherwise unremarkable. PAIN: Patient self reports no pain EYES: No recent vision changes EARS, NOSE, & THROAT: No throat pain, or dysphagia, or rhinorrhea CARDIOVASCULAR: Denies chest pain or palpitations PULMONARY: Denies shortness of breath GASTROINTESTINAL: Denies constipation/diarrhea, +nausea GENITOURINARY: denies dysuria MUSCULOSKELETAL: generalized weakness NEUROLOGICAL: bilat UE tremor (improving) HEMATOLOGICAL: +anemia SKIN: +sacral ulcer PSYCHIATRIC: +confused All other review of systems found to be negative. PHYSICAL EXAMINATION: VITAL SIGNS: Please see below. GENERAL: Pleasant and cooperative. No acute distress. HEENT: PERRL. Extraocular movements intact. Clear conjunctiva CARDIOVASCULAR: Regular rate and rhythm. No murmurs, rubs, or gallops LUNGS: Clear to auscultation bilaterally. No wheezes. No rhonchi ABDOMEN: Soft, nontender, nondistended. Positive bowel sounds. Normal active bowel sounds NEUROLOGICAL: Alert and oriented to self and place, not time able to follow directions, Cranial nerves II through XII grossly intact. Sensation grossly intact EXTREMITIES: 5-\5 strength bilateral upper extremities. 5-\5 strength right lower extremity. 5-/5 strength in left lower extremity. ASSESSMENT:70-year-old F with past medical history of ESRD who presents status post multiple falls with worsening weakness and confusion PLAN: 1. Rehab- PT/OT advance mobility and ADLs, strengthen/stretch/maintain ROM all 4limbs- ambulating with RW -[employer] eval for cog and swallow 2. Neuro- encephalopathic with weakness, improving -c/u off Megace which per daughter was restarted a few months ago due to poor po intake as can cause confusion and muscle weakness-patient eating well and subjectively feels stronger while on ARU -c/u Wellbutrin 50mg BID (tapered) -neuro consults, recs appreciated, patient being treated for Lewy Body dementia with Seroquel 25mg qHS-hallucinations seem to be improving, Namenda added for cognitive enhancement-patient's cognition continues to fluctuate, but remains relatively stable, she has insight into her deficits -Zyprexa prn for agitation 3. CArdiac- hx of afib on Coumadin, daily PT/INRs, c/u rhythmol and Coreg- medicine consulted to assist in overall management -diastolic CHF c/u fluid restriction 4. Resp- monitor for infection 5. Renal- ESRD on HD, renal consulted-recs appreciated -c/u flomax for urinary retention 6. Heme- anemia due to chronic disease s/p transfusions, renal managing 7. GI ppx- protonix 8. DVT ppx- on warfarin 9. Dispo- waiting for a bed at [facility] level, patient still making gains in therapy Allergies Coded Allergies: Sulfa (Sulfonamide Antibiotics) (Verified Adverse Reaction, Intermediate, upset stomach, 06/27/19) Vital Signs Vital Signs Date Time Temp Pulse Resp B/P (MAP) Pulse Ox O2 Delivery O2 Flow Rate FiO2 01/22/21 06:00 97.1 62 18 132/61 (84) 98 Room Air Laboratory Data CBC/BMP Laboratory Tests 01/22/21 06:49 Labs 24H Laboratory Tests 2 01/22/21 06:49: Immature Granulocyte % (Auto) 0.5, Neutrophils (%) (Auto) 68.3H, Lymphocytes (%) (Auto) 18.5L, Monocytes (%) (Auto) 9.1H, Eosinophils (%) (Auto) 2.2, Basophils (%) (Auto) 1.4H, Neutrophils # (Auto) 4.3, Lymphocytes # (Auto) 1.2L, Monocytes # (Auto) 0.6, Eosinophils # (Auto) 0.1, Basophils # (Auto) 0.1, Nucleated Red Blood Cells % (auto) 0.0, Prothrombin Time 23.9H, Prothromb Time International Ratio 2.09, Anion Gap 7L, Glomerular Filtration Rate 11.9L, Calcium Level 9.5 Current Medications Current Medications Current Medications Medications (Trade) Dose Ordered Sig/Eileen Route PRN Reason Start Time Stop Time Status Last Admin Dose Admin Acetaminophen (Tylenol Tab) 650 mg Q4HP PRN PO fever/MILD PAIN (PS 1-4) 12/28/20 16:10 01/18/21 21:16 Bupropion HCl (Wellbutrin Xl) 300 mg DAILY PO 12/29/20 09:00 12/29/20 10:05 DC 12/29/20 09:28 Bupropion HCl (Wellbutrin) 50 mg BID PO 3/10/21 21:00 01/21/21 20:20 Bupropion HCl (Wellbutrin) 50 mg BID@1700,2200 PO 01/01/21 17:00 01/01/21 22:01 DC 01/01/21 22:38 Bupropion HCl (Wellbutrin) 50 mg TID PO 01/01/21 09:00 01/01/21 12:18 DC 01/01/21 11:54 Bupropion HCl (Wellbutrin) 50 mg TID PO 01/02/21 09:00 01/06/21 13:54 DC 01/06/21 08:49 Bupropion HCl (Wellbutrin) 75 mg TID PO 12/29/20 16:00 01/01/21 09:30 DC 12/31/20 20:40 Bupropion HCl (Wellbutrin) 75 mg TID PO 12/30/20 16:00 12/29/20 15:39 DC Bupropion HCl (Wellbutrin) 100 mg TID PO 12/30/20 09:00 12/29/20 14:38 DC Carvedilol (COReg) 12.5 mg BID PO 12/28/20 21:00 01/21/21 20:20 Cinacalcet (Sensipar) 30 mg WeFr@0900 PO 01/01/21 09:00 01/20/21 09:59 Diphenhydramine HCl (Benadryl) 50 mg ASDIRECTED PRN IM ANAPHYLAXIS 01/11/21 00:00 01/11/21 23:59 DC Docusate Sodium (Colace) 100 mg BID PO 12/28/20 21:00 01/21/21 20:20 Epinephrine HCl (Adrenalin) 0.3 mg ASDIRECTED PRN IM ANAPHYLAXIS 01/11/21 00:00 01/11/21 23:59 DC Heparin Sodium (Heparin) Please refer to ... ASDIRECTED XX 01/09/21 05:55 01/10/21 05:54 DC Heparin Sodium (Heparin) Please refer to ... ASDIRECTED XX 01/12/21 07:45 01/13/21 07:44 DC Heparin Sodium (Heparin) Please refer to ... ASDIRECTED XX 01/14/21 06:00 01/15/21 05:59 DC Heparin Sodium (Heparin) Please refer to ... ASDIRECTED XX 01/15/21 20:15 01/16/21 20:14 DC Heparin Sodium (Heparin) Please refer to ... ASDIRECTED XX 12/30/20 10:15 12/31/20 10:14 DC Heparin Sodium (Heparin) Please refer to ... ASDIRECTED XX 01/01/21 12:20 01/02/21 12:19 DC Iron (Venofer) 100 mg HD IV 12/30/20 11:25 01/01/21 11:26 DC 12/30/20 13:11 Iron (Venofer) 100 mg HD IV 01/01/21 13:10 01/14/21 14:13 Lidocaine HCl (Lidocaine 1% Sdv) 0.5 ml ASDIRECTED PRN SC SEE LABEL COMMENTS 01/09/21 05:55 01/10/21 05:54 DC Lidocaine HCl (Lidocaine 1% Sdv) 0.5 ml ASDIRECTED PRN SC SEE LABEL COMMENTS 01/12/21 07:45 01/13/21 07:44 DC Lidocaine HCl (Lidocaine 1% Sdv) 0.5 ml ASDIRECTED PRN SC SEE LABEL COMMENTS 01/14/21 06:00 01/14/21 23:04 DC Lidocaine HCl (Lidocaine 1% Sdv) 0.5 ml ASDIRECTED PRN SC SEE LABEL COMMENTS 01/15/21 20:15 01/16/21 20:14 DC Lidocaine HCl (Lidocaine 1% Sdv) 0.5 ml ASDIRECTED PRN SC SEE LABEL COMMENTS 12/30/20 10:15 12/31/20 10:14 DC Lidocaine HCl (Lidocaine 1% Sdv) 0.5 ml ASDIRECTED PRN SC SEE LABEL COMMENTS 01/01/21 12:20 01/02/21 12:19 DC Megestrol Acetate (Megace Acetate Suspension) 40 mg QID PO 12/29/20 09:49 12/29/20 14:38 DC Megestrol Acetate (Megace) 40 mg QID PO 12/28/20 17:00 12/29/20 09:18 DC 12/28/20 21:14 Megestrol Acetate (Megace) 40 mg QID PO 12/29/20 09:15 12/29/20 09:49 DC Memantine (Namenda) 5 mg DAILY PO 01/11/21 09:00 01/21/21 08:49 Multivitamins (Theragram-M) 1 tab DAILY PO 01/09/21 09:00 01/21/21 08:50 Mupirocin (Bactroban 2% Ointment) 1 dose BID TOP 12/28/20 21:00 01/05/21 16:04 DC 01/05/21 08:59 Olanzapine (ZyPREXA) 2.5 mg Q6HP PRN PO AGITATION 12/29/20 15:00 01/21/21 08:51 DC Pantoprazole Sodium (Protonix) 40 mg DAILY PO 12/29/20 09:00 01/21/21 08:50 Polyethylene Glycol (Miralax) 1 pkt DAILY PRN PO CONSTIPATION 12/28/20 16:10 01/17/21 17:51 Propafenone HCl (Rythmol) 300 mg BID PO 12/28/20 21:00 01/21/21 20:20 Quetiapine Fumarate (SEROquel) 25 mg QHS PO 12/31/20 21:00 01/21/21 20:21 Senna (Senokot) 1 tab QHS PO 12/28/20 21:00 01/21/21 20:20 Sodium Chloride (Nacl 0.9%) 200 ml ASDIRECTED PRN IV SEE LABEL COMMENTS 01/09/21 05:55 01/10/21 05:54 DC Sodium Chloride (Nacl 0.9%) 200 ml ASDIRECTED PRN IV SEE LABEL COMMENTS 12/30/20 10:15 12/31/20 10:14 DC Sodium Chloride (Nacl 0.9%) 200 ml ASDIRECTED PRN IV SEE LABEL COMMENTS 01/01/21 12:20 01/02/21 12:19 DC Tamsulosin HCl (Flomax) 0.4 mg DAILY PO 12/29/20 09:00 01/21/21 08:49 Warfarin Sodium (Coumadin) 1 mg DAILY@17 PO 01/09/21 17:00 01/20/21 17:41 DC 01/19/21 16:36 Warfarin Sodium (Coumadin) 1 mg DAILY@17 PO 01/09/21 17:00 Cancel Warfarin Sodium (Coumadin) 1 mg DAILY@17 PO 01/21/21 17:00 01/21/21 08:51 DC Warfarin Sodium (Coumadin) 1 mg DAILY@17 PO 12/30/20 17:00 01/03/21 19:09 DC 01/03/21 16:55 Warfarin Sodium (Coumadin) 2 mg DAILY@17 PO 01/04/21 17:00 01/06/21 12:17 DC 01/05/21 16:17 Warfarin Sodium (Coumadin) 2.5 mg DAILY@17 PO 01/09/21 17:00 01/20/21 17:41 DC 01/19/21 16:35 Warfarin Sodium (Coumadin) 2.5 mg DAILY@17 PO 01/21/21 17:00 01/21/21 08:51 DC Warfarin Sodium (Coumadin) 3.5 mg DAILY@17 PO 01/09/21 17:00 01/09/21 17:29 DC Warfarin Sodium (Coumadin) 3.5 mg DAILY@17 PO 01/21/21 17:00 01/20/21 18:04 DC Warfarin Sodium (Coumadin) 4 mg DAILY@17 PO 01/21/21 17:00 01/21/21 17:22 Warfarin Sodium (Coumadin) 5 mg DAILY@17 PO 01/06/21 17:00 01/07/21 07:26 DC 01/06/21 16:21 Warfarin Sodium (Coumadin) 5 mg DAILY@17 PO 01/08/21 17:00 01/09/21 10:38 DC 01/08/21 17:36 Warfarin Sodium (Coumadin) 7.5 mg DAILY@17 PO 12/29/20 17:00 12/30/20 07:58 DC 12/29/20 17:04 LINA CASTILLO MD Jan 22, 2021 08:44
[2021-01-22] MEDS: MULTIVITAMINS/MINERALS THERAP 1 TAB PO SCH ×2 (09:00→09:29)
[2021-01-22] MEDS: PROPAFENONE 150 MG TAB PO SCH ×2 (09:28→20:22)
[2021-01-22] MEDS: CARVedilol 12.5 MG TAB PO SCH ×2 (09:29→20:22)
[2021-01-22] MEDS: PANTOPRAZOLE 40MG TAB (PROTONIX) PO SCH (09:29)
[2021-01-22] MEDS: CINACALCET 30 MG TAB (SENSIPAR) PO SCH (09:29)
[2021-01-22] MEDS: buPROPion 100 MG TAB PO SCH ×2 (09:29→20:22)
[2021-01-22] MEDS: TAMSULOSIN 0.4 MG CAP PO SCH (09:29)
[2021-01-22] MEDS: DOCUSATE SODIUM 100MG CAPSULE PO SCH ×2 (09:29→20:22)
[2021-01-22] MEDS: MEMANTINE 5MG TABLET (NAMENDA) PO SCH (09:30)
[2021-01-22] MEDS: REMEDY PHYTOPLEX Z-GUARD PASTE 113GM TUBE (FROM STOREROOM PRODUCT) TOP SCH ×3 (09:30→20:23)
[2021-01-22 14:00] VITALS: BP 133/80
[2021-01-22] MEDS: WARFARIN SOD 4MG TAB PO SCH (16:54)
[2021-01-22 20:00] VITALS: BP 122/98
[2021-01-22] MEDS: SENNA 8.6 MG TAB (SENOKOT) PO SCH (20:22)
[2021-01-22] MEDS: QUEtiapine FUMARATE 25 MG TAB PO SCH (20:22)
[2021-01-23 06:00] VITALS: BP 126/59
[2021-01-23 07:13] LABS: INR 2.16; PROTHROMBIN TIME 24.6 SECONDS (12.5-14.3)
--- NOTE | 2021-01-23 08:50 | IPN ---
PROGRESS NOTE DATE: 01/22/2021 SUBJECTIVE: Ms. Santillan is seen this morning on the acute rehab floor. She is currently in the wheelchair doing her Physical Therapy. She was dialyzed yesterday which she tolerated very well. Patient denies any dyspnea, chest pain, nausea, vomiting, fever or chills. She remains somewhat confused and disoriented. OBJECTIVE: VITAL SIGNS: Temperature is 97.1 degrees Fahrenheit, heart rate is 62 per minute, respiratory rate is 18 per minute. Blood pressure is 132/60 mmHg and oxygen saturation 98% on room air. HEENT: Head is atraumatic. NECK: Supple without JVD or thyroid enlargement. HEART: Heart sounds are regular. LUNGS: Clear to auscultation. ABDOMEN: Soft and nontender. Bowel sounds are normal. EXTREMITIES: Without any cyanosis or clubbing. NEUROLOGIC: She is awake. Not full oriented but has no focal deficit. LABORATORY DATA: Today's labs shows a WBC of 6.3, hemoglobin is 11.4 and hematocrit 35.5. Sodium 138, potassium 4.2, CO2 30, BUN 29, and creatinine 3.98. Glucose 74 and calcium 9.5. PROBLEMS: 1. Endstage renal disease. Patient was dialyzed yesterday and we plan her next dialysis tomorrow. Her volume status is well-compensated and her electrolytes are within normal range. 2. Anemia. Her anemia has corrected and no intervention is needed at present. 3. Hypertension, blood pressure is well-controlled. No changes are being made today. 4. Altered mentation. This is chronic and stable at baseline. No specific intervention is needed at present.
[2021-01-23] MEDS: CARVedilol 12.5 MG TAB PO SCH ×2 (09:27→20:19)
[2021-01-23] MEDS: DOCUSATE SODIUM 100MG CAPSULE PO SCH ×2 (09:27→20:19)
[2021-01-23] MEDS: MEMANTINE 5MG TABLET (NAMENDA) PO SCH (09:28)
[2021-01-23] MEDS: REMEDY PHYTOPLEX Z-GUARD PASTE 113GM TUBE (FROM STOREROOM PRODUCT) TOP SCH ×3 (09:28→20:20)
[2021-01-23] MEDS: buPROPion 100 MG TAB PO SCH ×2 (09:28→20:19)
[2021-01-23] MEDS: PROPAFENONE 150 MG TAB PO SCH ×2 (09:28→20:19)
[2021-01-23] MEDS: PANTOPRAZOLE 40MG TAB (PROTONIX) PO SCH (09:28)
[2021-01-23] MEDS: MULTIVITAMINS/MINERALS THERAP 1 TAB PO SCH (09:28)
[2021-01-23] MEDS: TAMSULOSIN 0.4 MG CAP PO SCH (09:29)
[2021-01-23 14:00] VITALS: BP 146/67
--- NOTE | 2021-01-23 17:15 | IPN ---
PROGRESS NOTE DATE: 01/23/2021 Mrs. Santillan is seen this morning on her bedside. She is sitting in the chair at the time of my visit. She remains pleasantly confused and disoriented. Again she could not tell me the day, month, or season correctly. She is not in any acute distress. PHYSICAL EXAMINATION: Temperature 97.5 degrees Fahrenheit, heart rate 64 per minute, respiratory rate 18 per minute, blood pressure 126/60 mmHg, and oxygen saturation 99% on room air. Head is atraumatic. Neck supple and without jugular venous distention (JVD) or thyroid enlargement. Heart sounds are regular and lungs clear to auscultation. Abdomen soft and nontender, and bowel sounds are normal. Extremities without any cyanosis or clubbing. Neurologically, she is awake, alert, but disoriented and unchanged over last several days. Her labs from yesterday are reviewed, and no new labs were done today. Her BUN was 29 yesterday and creatinine 3.98 with normal electrolytes. Her hemoglobin was 11.4 and hematocrit 35.5. PROBLEMS: 1. End-stage renal disease. Patient is due for hemodialysis today and will be dialyzed this afternoon. We will remove only minimal amount of fluid, as she does not gain much weight between treatments. 2. Anemia. Her anemia has been stable, and no intervention is needed at this point. 3. Altered mentation. This is most likely her baseline, and no change is noticed. 4. Deconditioning and weakness. She continues with rehabilitation.
[2021-01-23] MEDS: WARFARIN SOD 4MG TAB PO SCH (18:28)
[2021-01-23 20:00] VITALS: BP 131/61
[2021-01-23] MEDS: QUEtiapine FUMARATE 25 MG TAB PO SCH (20:19)
[2021-01-23] MEDS: SENNA 8.6 MG TAB (SENOKOT) PO SCH (20:19)
[2021-01-24 05:31] VITALS: BP 115/55
[2021-01-24] MEDS: buPROPion 100 MG TAB PO SCH ×2 (07:10→20:07)
[2021-01-24] MEDS: PROPAFENONE 150 MG TAB PO SCH ×2 (07:10→20:07)
[2021-01-24] MEDS: MEMANTINE 5MG TABLET (NAMENDA) PO SCH (07:10)
[2021-01-24] MEDS: CARVedilol 12.5 MG TAB PO SCH ×2 (07:10→20:08)
[2021-01-24] MEDS: PANTOPRAZOLE 40MG TAB (PROTONIX) PO SCH (07:10)
[2021-01-24] MEDS: TAMSULOSIN 0.4 MG CAP PO SCH (07:10)
[2021-01-24] MEDS: MULTIVITAMINS/MINERALS THERAP 1 TAB PO SCH (07:11)
[2021-01-24] MEDS: DOCUSATE SODIUM 100MG CAPSULE PO SCH ×2 (07:11→20:07)
[2021-01-24] MEDS: REMEDY PHYTOPLEX Z-GUARD PASTE 113GM TUBE (FROM STOREROOM PRODUCT) TOP SCH ×3 (07:11→20:08)
[2021-01-24 07:18] LABS: INR 2.1; PROTHROMBIN TIME 24.1 SECONDS (12.5-14.3)
[2021-01-24 14:00] VITALS: BP 118/57
--- NOTE | 2021-01-24 16:46 | IPNPDOC ---
Text Note Date of Service The patient was seen on 01/24/21. NOTE Subjective: Patient is a 70-year-old female with a PMHx of ESRD on HD ([facility]), who presented to the emergency room after frequent falls on 12/22. Upon arrival, patient was found to have an elevated INR and anemia. Nephrology was called on c onsultation, patient had received vitamin K to correct her elevated INR. Patient had received a single unit of PRBC transfusion on 12/23. Patient was ultimately transitioned to acute rehabilitation unit on 12/28 for further therapy. Hospital services consulted for further evaluation. Patient was seen and examined at the bedside. Currently patient was seen sitting in chair. Appears comfortable, denies any CP, SOB, or diarrhea. Objective: Vitals (See below) General: Sitting in chair, appears comfortable, Awake / Alert HEENT: NC, AT CVS: +S1S2 Lungs: There is fair air entry b/l, no wheezing or crackles, no rhonchi Abdomen: ND, NT, soft Extremities: Without edema Assessment and plan: Weakness and frequent falls - possibly 2/2 deconditioning and debility - Sitting in chair, moves all four extremities - CT head 12/22: 1. No acute intracranial abnormality. 2. Atrophy and chronic deep white matter ischemic changes. - CXR 12/22: No active disease. - c/w PT and OT as per ARU Macrocytic anemia - s/p 1 unit PRBC s/p Coagulopathy - likely 2/2 Coumadin - INR on ER arrival was elevated - INR today is therapeutic range Atrial fibrillation - c/w rate / rhythm Carvedilol - s/p Flecainide; has been started on Propafenone - c/w full anticoagulation with Coumadin ESRD on HD (MWF) - Nephrology on consultation HTN - BP well controlled - c/w Carvedilol Urinary retention - Was started on Tamsulosin on prior admission - will continue Mood disorder - c/w Bupropion / Quetiapine GERD - c/w Protonix DVT prophylaxis - c/w full anticoagulation with Coumadin Disposition: - As per ARU VS,Fishbone, I+O VS, Fishbone, I+O Vital Signs Date Time Temp Pulse Resp B/P (MAP) Pulse Ox O2 Delivery O2 Flow Rate FiO2 01/24/21 14:00 97.9 63 18 118/57 (77) 98 Room Air I&O- Last 24 Hours up to 6 AM 01/24/21 05:59 Intake Total 1200 ml Output Total 500 ml Balance 700 ml ABBI PERKINS MD Jan 24, 2021 16:46
[2021-01-24] MEDS: WARFARIN SOD 4MG TAB PO SCH (16:52)
--- NOTE | 2021-01-24 18:13 | IPN ---
NEPHROLOGY PROGRESS NOTE DATE: 01/24/2021 SUBJECTIVE: Ms. Santillan is seen this afternoon during her physical therapy. She is feeling well and denies any nausea, vomiting, dyspnea or chest pain. She has remained confused and disoriented, which is chronic and essentially unchanged. PHYSICAL EXAMINATION: Temperature 98 degrees Fahrenheit, heart rate 64 per minute, respiratory rate 18 per minute, blood pressure 118/57 mmHg, oxygen saturation 98% on room air. HEAD: Atraumatic. NECK: Supple and without jugular venous distention (JVD) or thyroid enlargement. HEART SOUNDS: Regular. LUNGS: Clear to auscultation. ABDOMEN: Soft and nontender. Bowel sounds are normal. EXTREMITIES: Without any cyanosis or clubbing. Right forearm arteriovenous (AV) fistula is patent. PROBLEMS: 1. End-stage renal disease. Patient was dialyzed yesterday and she tolerated her dialysis treatment very well. Next dialysis will be scheduled for January 26, 2021. 2. Hypertension. Blood pressure has been very well-controlled and no changes are being made today. 3. Anemia. Her anemia has been corrected and improved. No intervention is needed at present. CBC will be checked again next week. 4. Altered mentation. This is chronic and related most likely to dementia. She remains on her chronic therapy. No other urgent intervention is needed.
[2021-01-24 20:00] VITALS: BP 133/63
[2021-01-24] MEDS: SENNA 8.6 MG TAB (SENOKOT) PO SCH (20:07)
[2021-01-24] MEDS: QUEtiapine FUMARATE 25 MG TAB PO SCH (20:07)
[2021-01-25 05:44] VITALS: BP 130/61
[2021-01-25 06:33] LABS: BASO # 0.1 10^3/uL (0.0-0.2); BASO % 0.7 % (0.0-1.0); EOS # 0.2 10^3/uL (0.0-0.5); EOS % 2.5 % (0.0-3.0); HEMATOCRIT 31.7 % (36.0-47.0); HEMOGLOBIN 10.2 g/dl (12.0-15.5); LYMPH # 1.2 10^3/uL (1.5-5.0); MEAN CORPUSCULAR HEMOGLOBIN 31.5 pg (27.0-33.0); MEAN CORPUSCULAR HGB CONC 32.2 g/dl (32.0-36.5); MEAN CORPUSCULAR VOLUME 97.8 fl (80.0-96.0); MONO # 0.8 10^3/uL (0.0-0.8); NEUTROPHILS % 72.2 % (36.0-66.0); PLATELET COUNT, AUTOMATED 239 10^3/uL (150-450); RED BLOOD COUNT 3.24 10^6/uL (4.00-5.40); WHITE BLOOD COUNT 8.3 10^3/uL (4.0-10.0)
[2021-01-25 06:42] LABS: INR 2.4; PROTHROMBIN TIME 26.7 SECONDS (12.5-14.3)
[2021-01-25 06:58] LABS: CALCIUM LEVEL 9.3 MG/DL (8.8-10.2); CREATININE FOR GFR 5.17 MG/DL (0.55-1.30); GLOMERULAR FILTRATION RATE 8.8 (>39); POTASSIUM SERUM 4.8 MEQ/L (3.5-5.1)
[2021-01-25] MEDS: DOCUSATE SODIUM 100MG CAPSULE PO SCH ×2 (08:24→20:07)
[2021-01-25] MEDS: MULTIVITAMINS/MINERALS THERAP 1 TAB PO SCH ×2 (08:25→08:32)
[2021-01-25] MEDS: TAMSULOSIN 0.4 MG CAP PO SCH (08:25)
[2021-01-25] MEDS: PROPAFENONE 150 MG TAB PO SCH ×2 (08:25→20:06)
[2021-01-25] MEDS: MEMANTINE 5MG TABLET (NAMENDA) PO SCH (08:25)
[2021-01-25] MEDS: PANTOPRAZOLE 40MG TAB (PROTONIX) PO SCH (08:25)
[2021-01-25] MEDS: REMEDY PHYTOPLEX Z-GUARD PASTE 113GM TUBE (FROM STOREROOM PRODUCT) TOP SCH ×3 (08:26→20:07)
[2021-01-25] MEDS: CARVedilol 12.5 MG TAB PO SCH ×2 (08:26→20:06)
[2021-01-25] MEDS: buPROPion 100 MG TAB PO SCH ×2 (08:26→20:07)
[2021-01-25 14:00] VITALS: BP 130/61
[2021-01-25] MEDS: WARFARIN SOD 4MG TAB PO SCH (17:07)
[2021-01-25 20:00] VITALS: BP 131/61
[2021-01-25] MEDS: QUEtiapine FUMARATE 25 MG TAB PO SCH (20:06)
[2021-01-25] MEDS: SENNA 8.6 MG TAB (SENOKOT) PO SCH (20:07)
[2021-01-26 06:00] VITALS: BP 152/67
[2021-01-26 08:53] LABS: INR 2.54
[2021-01-26] MEDS: MULTIVITAMINS/MINERALS THERAP 1 TAB PO SCH (09:00)
[2021-01-26] MEDS: DOCUSATE SODIUM 100MG CAPSULE PO SCH ×2 (09:00→20:21)
[2021-01-26] MEDS: REMEDY PHYTOPLEX Z-GUARD PASTE 113GM TUBE (FROM STOREROOM PRODUCT) TOP SCH ×3 (09:00→20:21)
[2021-01-26] MEDS: MEMANTINE 5MG TABLET (NAMENDA) PO SCH (09:51)
[2021-01-26] MEDS: buPROPion 100 MG TAB PO SCH ×2 (09:51→20:20)
[2021-01-26] MEDS: PROPAFENONE 150 MG TAB PO SCH ×2 (09:51→20:21)
[2021-01-26] MEDS: TAMSULOSIN 0.4 MG CAP PO SCH (09:51)
[2021-01-26] MEDS: PANTOPRAZOLE 40MG TAB (PROTONIX) PO SCH (09:51)
[2021-01-26] MEDS: CARVedilol 12.5 MG TAB PO SCH ×2 (09:52→20:20)
--- NOTE | 2021-01-26 13:18 | IPN ---
PROGRESS NOTE DATE: 01/26/2021 SUBJECTIVE: Ms. Santillan is seen this morning during her physical rehab. She is able to walk with the help of a walker a short distance now. She reports some edema on her feet, but denies any dyspnea or chest pain. She has no nausea or vomiting. OBJECTIVE: VITAL SIGNS: Temperature 97.7 degrees Fahrenheit, heart rate 76 per minute, and respiratory rate 18 per minute. Blood pressure 152/67 mmHg and oxygen saturation 98% on room air. HEAD: Atraumatic. NECK: Supple and without JVD or thyroid enlargement. HEART: Sounds regular. LUNGS: Clear to auscultation. ABDOMEN: Soft and nontender. Bowel sounds are normal. EXTREMITIES: Without any cyanosis or clubbing. Right forearm AV fistula is patent. She has trace edema of her legs. NEUROLOGIC: She is at her baseline mentation without any focal deficits. LABORATORY DATA: Her labs from yesterday showed hemoglobin 10.2, hematocrit 31.7. Sodium 137, potassium 4.8, BUN 49, and creatinine 5.17. PROBLEMS: 1. End-stage renal disease. The patient is going to be dialyzed this afternoon. She has been very well dialyzed. 2. Lower extremity edema. She has mild edema not to removing much fluid with dialysis treatments. Today, we will try to remove 1 liter of fluid and see how she tolerates. 3. Anemia. Her anemia has been stable and she will continue weekly dose of Aranesp during dialysis. 4. Altered mentation. Most likely related to chronic dementia. She has mild alterations, but overall she has been unchanged.
[2021-01-26 14:00] VITALS: BP 121/57
[2021-01-26] MEDS: WARFARIN SOD 4MG TAB PO SCH (17:54)
[2021-01-26 20:00] VITALS: BP 133/63
[2021-01-26] MEDS: SENNA 8.6 MG TAB (SENOKOT) PO SCH (20:21)
[2021-01-26] MEDS: QUEtiapine FUMARATE 25 MG TAB PO SCH (20:21)
[2021-01-27 06:00] VITALS: BP 128/63
[2021-01-27 07:33] LABS: BASO # 0.1 10^3/uL (0.0-0.2); BASO % 0.8 % (0.0-1.0); EOS # 0.2 10^3/uL (0.0-0.5); HEMATOCRIT 34.9 % (36.0-47.0); HEMOGLOBIN 11.1 g/dl (12.0-15.5); LYMPH # 1.1 10^3/uL (1.5-5.0); LYMPH % 12.9 % (24.0-44.0); MEAN CORPUSCULAR HEMOGLOBIN 30.7 pg (27.0-33.0); MEAN CORPUSCULAR HGB CONC 31.8 g/dl (32.0-36.5); MEAN CORPUSCULAR VOLUME 96.4 fl (80.0-96.0); MONO # 0.8 10^3/uL (0.0-0.8); MONO % 8.6 % (2.0-8.0); NEUTROPHILS # 6.7 10^3/uL (1.5-8.5); NEUTROPHILS % 75.2 % (36.0-66.0); PLATELET COUNT, AUTOMATED 282 10^3/uL (150-450); RED BLOOD COUNT 3.62 10^6/uL (4.00-5.40); WHITE BLOOD COUNT 8.9 10^3/uL (4.0-10.0)
[2021-01-27 07:42] LABS: INR 2.22; PROTHROMBIN TIME 25.1 SECONDS (12.5-14.3)
[2021-01-27 07:55] LABS: CALCIUM LEVEL 9.9 MG/DL (8.8-10.2); CREATININE FOR GFR 4.09 MG/DL (0.55-1.30); GLOMERULAR FILTRATION RATE 11.5 (>39); POTASSIUM SERUM 4.3 MEQ/L (3.5-5.1)
[2021-01-27 08:19] VITALS: BP 105/52
[2021-01-27] MEDS: CARVedilol 12.5 MG TAB PO SCH ×2 (08:22→20:09)
[2021-01-27] MEDS: DOCUSATE SODIUM 100MG CAPSULE PO SCH ×2 (08:22→20:09)
[2021-01-27] MEDS: MULTIVITAMINS/MINERALS THERAP 1 TAB PO SCH (08:23)
[2021-01-27] MEDS: TAMSULOSIN 0.4 MG CAP PO SCH (08:24)
[2021-01-27] MEDS: MEMANTINE 5MG TABLET (NAMENDA) PO SCH (08:24)
[2021-01-27] MEDS: PANTOPRAZOLE 40MG TAB (PROTONIX) PO SCH (08:24)
[2021-01-27] MEDS: CINACALCET 30 MG TAB (SENSIPAR) PO SCH (08:24)
[2021-01-27] MEDS: buPROPion 100 MG TAB PO SCH ×2 (08:25→20:09)
[2021-01-27] MEDS: PROPAFENONE 150 MG TAB PO SCH ×2 (08:25→20:09)
[2021-01-27] MEDS: REMEDY PHYTOPLEX Z-GUARD PASTE 113GM TUBE (FROM STOREROOM PRODUCT) TOP SCH ×3 (08:26→20:10)
--- NOTE | 2021-01-27 12:20 | IPN ---
NEPHROLOGY PROGRESS NOTE DATE: 01/27/2021 SUBJECTIVE: Ms. Santillan is seen this morning on her bedside. She is currently in the wheelchair going to the gym for rehabilitation. She reports that her leg edema improved after dialysis the last time. She denies any dyspnea or chest pain. She has no nausea or vomiting. She is able to walk short distances with the help of a walker. She remains somewhat disoriented and confused at times, which is chronic, most likely related to dementia. PHYSICAL EXAMINATION: Temperature 97.5 degrees Fahrenheit, heart rate 60 per minute, respiratory rate 18 per minute, blood pressure 108/52 mmHg, oxygen saturation 98% on room air. HEAD: Atraumatic. NECK: Supple and without jugular venous distention (JVD) or thyroid enlargement. HEART SOUNDS: Regular. LUNGS: Clear to auscultation. ABDOMEN: Soft and nontender. Bowel sounds are normal. EXTREMITIES: Without any cyanosis or clubbing; 1+ edema on the ankles is present and both her feet are wrapped in Aleksandar bandages. NEUROLOGIC: She has no significant focal deficit. She remains somewhat confused and not well-oriented. LABORATORY DATA: Today's labs show WBC 8.9, hemoglobin 11.1, hematocrit 34.9, platelets 282. Sodium 138, potassium 4.3, CO2 30, BUN 31, creatinine 4.09, glucose 71, calcium 9.9. PROBLEMS: 1. End-stage renal disease. Patient is regularly dialyzed on Monday, , Monday schedule. She was dialyzed yesterday and we will plan next dialysis tomorrow. No emergent need for dialysis today. 2. Anemia. Her anemia has been stable and we will continue to monitor and manage with weekly dose of Aranesp. 3. Hypertension. Blood pressure has been well-controlled and no changes in antihypertensives are needed. 4. Peripheral edema and hypervolemia. She has mild leg edema and we will try to remove 1 liter of fluid with next dialysis tomorrow.
[2021-01-27 14:00] VITALS: BP 110/54
--- NOTE | 2021-01-27 15:21 | IPNPDOC ---
PM&R Progress Note DATE OF SERVICE: Jan 27, 2021 Pricing Manager Progress Note Subjective: PAtient has no complaints, still wodenrs what the discharge plan is. She states her mood is not getting any worse on the lowered dose of antidepressant. REVIEW OF SYSTEMS: The following is a completed review of systems and has been reviewed. Review of systems otherwise unremarkable. PAIN: Patient self reports no pain EYES: No recent vision changes EARS, NOSE, & THROAT: No throat pain, or dysphagia, or rhinorrhea CARDIOVASCULAR: Denies chest pain or palpitations PULMONARY: Denies shortness of breath GASTROINTESTINAL: Denies constipation/diarrhea, +nausea GENITOURINARY: denies dysuria MUSCULOSKELETAL: generalized weakness NEUROLOGICAL: bilat UE tremor (improving) HEMATOLOGICAL: +anemia SKIN: +sacral ulcer PSYCHIATRIC: +confused All other review of systems found to be negative. PHYSICAL EXAMINATION: VITAL SIGNS: Please see below. GENERAL: Pleasant and cooperative. No acute distress. HEENT: PERRL. Extraocular movements intact. Clear conjunctiva CARDIOVASCULAR: Regular rate and rhythm. No murmurs, rubs, or gallops LUNGS: Clear to auscultation bilaterally. No wheezes. No rhonchi ABDOMEN: Soft, nontender, nondistended. Positive bowel sounds. Normal active bowel sounds NEUROLOGICAL: Alert and oriented to self and place, not time able to follow directions, Cranial nerves II through XII grossly intact. Sensation grossly intact EXTREMITIES: 5-\5 strength bilateral upper extremities. 5-\5 strength right lower extremity. 5-/5 strength in left lower extremity. ASSESSMENT:70-year-old F with past medical history of ESRD who presents status post multiple falls with worsening weakness and confusion PLAN: 1. Rehab- PT/OT advance mobility and ADLs, strengthen/stretch/maintain ROM all 4limbs- ambulating with RW -[facility] [employer]CC[employer]ATIONAL THERAPIST eval for cog and swallow 2. Neuro- encephalopathic with weakness, improving -c/u off Megace which per daughter was restarted a few months ago due to poor po intake as can cause confusion and muscle weakness-patient eating well and subjectively feels stronger while on ARU -c/u Wellbutrin 50mg BID (tapered) -neuro consults, recs appreciated, patient being treated for Lewy Body dementia with Seroquel 25mg qHS-hallucinations seem to be improving, Namenda added for cognitive enhancement-patient's cognition continues to fluctuate, but remains relatively stable, she has insight into her deficits -Zyprexa prn for agitation 3. CArdiac- hx of afib on Coumadin, daily PT/INRs, c/u rhythmol and Coreg- medicine consulted to assist in overall management -diastolic CHF c/u fluid restriction 4. Resp- monitor for infection 5. Renal- ESRD on HD, renal consulted-recs appreciated -c/u flomax for urinary retention 6. Heme- anemia due to chronic disease s/p transfusions, renal managing 7. GI ppx- protonix 8. DVT ppx- on warfarin 9. Dispo- waiting for a bed at [facility] level, transfer has been delayed due to lack of insurance coverage for dialysis transport from [facility], patient's daughter has agreed to do transport, but [facility] are not able to take on liability, patient still making gains in therapy Allergies Coded Allergies: Sulfa (Sulfonamide Antibiotics) (Verified Adverse Reaction, Intermediate, upset stomach, 06/27/19) Vital Signs Vital Signs Date Time Temp Pulse Resp B/P (MAP) Pulse Ox O2 Delivery O2 Flow Rate FiO2 01/27/21 14:00 97.5 59 18 110/54 (72) 94 Room Air Laboratory Data CBC/BMP Laboratory Tests 01/27/21 06:52 Labs 24H Laboratory Tests 2 01/27/21 06:52: Immature Granulocyte % (Auto) 0.5, Neutrophils (%) (Auto) 75.2H, Lymphocytes (%) (Auto) 12.9L, Monocytes (%) (Auto) 8.6H, Eosinophils (%) (Auto) 2.0, Basophils (%) (Auto) 0.8, Neutrophils # (Auto) 6.7, Lymphocytes # (Auto) 1.1L, Monocytes # (Auto) 0.8, Eosinophils # (Auto) 0.2, Basophils # (Auto) 0.1, Nucleated Red Blood Cells % (auto) 0.0, Prothrombin Time 25.1H, Prothromb Time International R atio 2.22, Anion Gap 5L, Glomerular Filtration Rate 11.5L, Calcium Level 9.9 Current Medications Current Medications Current Medications Medications (Trade) Dose Ordered Sig/Eileen Route PRN Reason Start Time Stop Time Status Last Admin Dose Admin Acetaminophen (Tylenol Tab) 650 mg Q4HP PRN PO fever/MILD PAIN (PS 1-4) 12/28/20 16:10 01/18/21 21:16 Bupropion HCl (Wellbutrin Xl) 300 mg DAILY PO 12/29/20 09:00 12/29/20 10:05 DC 12/29/20 09:28 Bupropion HCl (Wellbutrin) 50 mg BID PO 01/06/21 21:00 01/27/21 08:25 Bupropion HCl (Wellbutrin) 50 mg BID@1700,2200 PO 01/01/21 17:00 01/01/21 22:01 DC 01/01/21 22:38 Bupropion HCl (Wellbutrin) 50 mg TID PO 01/01/21 09:00 01/01/21 12:18 DC 01/01/21 11:54 Bupropion HCl (Wellbutrin) 50 mg TID PO 01/02/21 09:00 01/06/21 13:54 DC 01/06/21 08:49 Bupropion HCl (Wellbutrin) 75 mg TID PO 12/29/20 16:00 01/01/21 09:30 DC 12/31/20 20:40 Bupropion HCl (Wellbutrin) 75 mg TID PO 12/30/20 16:00 12/29/20 15:39 DC Bupropion HCl (Wellbutrin) 100 mg TID PO 12/30/20 09:00 12/29/20 14:38 DC Carvedilol (COReg) 12.5 mg BID PO 12/28/20 21:00 01/26/21 20:20 Cinacalcet (Sensipar) 30 mg WeFr@0900 PO 01/01/21 09:00 01/27/21 08:24 Diphenhydramine HCl (Benadryl) 50 mg ASDIRECTED PRN IM ANAPHYLAXIS 01/11/21 00:00 01/11/21 23:59 DC Docusate Sodium (Colace) 100 mg BID PO 12/28/20 21:00 01/25/21 20:07 Epinephrine HCl (Adrenalin) 0.3 mg ASDIRECTED PRN IM ANAPHYLAXIS 01/11/21 00:00 01/11/21 23:59 DC Heparin Sodium (Heparin) Please refer to ... ASDIRECTED XX 01/09/21 05:55 01/10/21 05:54 DC Heparin Sodium (Heparin) Please refer to ... ASDIRECTED XX 01/12/21 07:45 01/13/21 07:44 DC Heparin Sodium (Heparin) Please refer to ... ASDIRECTED XX 01/14/21 06:00 01/15/21 05:59 DC Heparin Sodium (Heparin) Please refer to ... ASDIRECTED XX 01/15/21 20:15 01/16/21 20:14 DC Heparin Sodium (Heparin) Please refer to ... ASDIRECTED XX 12/30/20 10:15 12/31/20 10:14 DC Heparin Sodium (Heparin) Please refer to ... ASDIRECTED XX 01/01/21 12:20 01/02/21 12:19 DC Iron (Venofer) 100 mg HD IV 12/30/20 11:25 01/01/21 11:26 DC 12/30/20 13:11 Iron (Venofer) 100 mg HD IV 01/01/21 13:10 01/23/21 11:49 DC 01/14/21 14:13 Lidocaine HCl (Lidocaine 1% Sdv) 0.5 ml ASDIRECTED PRN SC SEE LABEL COMMENTS 01/09/21 05:55 01/10/21 05:54 DC Lidocaine HCl (Lidocaine 1% Sdv) 0.5 ml ASDIRECTED PRN SC SEE LABEL COMMENTS 01/12/21 07:45 01/13/21 07:44 DC Lidocaine HCl (Lidocaine 1% Sdv) 0.5 ml ASDIRECTED PRN SC SEE LABEL COMMENTS 01/14/21 06:00 01/14/21 23:04 DC Lidocaine HCl (Lidocaine 1% Sdv) 0.5 ml ASDIRECTED PRN SC SEE LABEL COMMENTS 01/15/21 20:15 01/16/21 20:14 DC Lidocaine HCl (Lidocaine 1% Sdv) 0.5 ml ASDIRECTED PRN SC SEE LABEL COMMENTS 12/30/20 10:15 12/31/20 10:14 DC Lidocaine HCl (Lidocaine 1% Sdv) 0.5 ml ASDIRECTED PRN SC SEE LABEL COMMENTS 01/01/21 12:20 01/02/21 12:19 DC Megestrol Acetate (Megace Acetate Suspension) 40 mg QID PO 12/29/20 09:49 12/29/20 14:38 DC Megestrol Acetate (Megace) 40 mg QID PO 12/28/20 17:00 12/29/20 09:18 DC 12/28/20 21:14 Megestrol Acetate (Megace) 40 mg QID PO 12/29/20 09:15 12/29/20 09:49 DC Memantine (Namenda) 5 mg DAILY PO 01/11/21 09:00 01/27/21 08:24 Multivitamins (Theragram-M) 1 tab DAILY PO 01/09/21 09:00 01/23/21 09:28 Mupirocin (Bactroban 2% Ointment) 1 dose BID TOP 12/28/20 21:00 01/05/21 16:04 DC 01/05/21 08:59 Olanzapine (ZyPREXA) 2.5 mg Q6HP PRN PO AGITATION 12/29/20 15:00 01/21/21 08:51 DC Pantoprazole Sodium (Protonix) 40 mg DAILY PO 12/29/20 09:00 01/27/21 08:24 Polyethylene Glycol (Miralax) 1 pkt DAILY PRN PO CONSTIPATION 12/28/20 16:10 01/17/21 17:51 Propafenone HCl (Rythmol) 300 mg BID PO 12/28/20 21:00 01/27/21 08:25 Quetiapine Fumarate (SEROquel) 25 mg QHS PO 12/31/20 21:00 01/26/21 20:21 Senna (Senokot) 1 tab QHS PO 12/28/20 21:00 01/25/21 20:07 Sodium Chloride (Nacl 0.9%) 200 ml ASDIRECTED PRN IV SEE LABEL COMMENTS 01/09/21 05:55 01/10/21 05:54 DC Sodium Chloride (Nacl 0.9%) 200 ml ASDIRECTED PRN IV SEE LABEL COMMENTS 12/30/20 10:15 12/31/20 10:14 DC Sodium Chloride (Nacl 0.9%) 200 ml ASDIRECTED PRN IV SEE LABEL COMMENTS 01/01/21 12:20 01/02/21 12:19 DC Tamsulosin HCl (Flomax) 0.4 mg DAILY PO 12/29/20 09:00 01/27/21 08:24 Warfarin Sodium (Coumadin) 1 mg DAILY@17 PO 01/09/21 17:00 01/20/21 17:41 DC 01/19/21 16:36 Warfarin Sodium (Coumadin) 1 mg DAILY@17 PO 01/09/21 17:00 Cancel Warfarin Sodium (Coumadin) 1 mg DAILY@17 PO 01/21/21 17:00 01/21/21 08:51 DC Warfarin Sodium (Coumadin) 1 mg DAILY@17 PO 12/30/20 17:00 01/03/21 19:09 DC 01/03/21 16:55 Warfarin Sodium (Coumadin) 2 mg DAILY@17 PO 01/04/21 17:00 01/06/21 12:17 DC 01/05/21 16:17 Warfarin Sodium (Coumadin) 2.5 mg DAILY@17 PO 01/09/21 17:00 01/20/21 17:41 DC 01/19/21 16:35 Warfarin Sodium (Coumadin) 2.5 mg DAILY@17 PO 01/21/21 17:00 01/21/21 08:51 DC Warfarin Sodium (Coumadin) 3.5 mg DAILY@17 PO 01/09/21 17:00 01/09/21 17:29 DC Warfarin Sodium (Coumadin) 3.5 mg DAILY@17 PO 01/21/21 17:00 01/20/21 18:04 DC Warfarin Sodium (Coumadin) 4 mg DAILY@17 PO 01/21/21 17:00 01/26/21 17:54 Warfarin Sodium (Coumadin) 5 mg DAILY@17 PO 01/06/21 17:00 01/07/21 07:26 DC 01/06/21 16:21 Warfarin Sodium (Coumadin) 5 mg DAILY@17 PO 01/08/21 17:00 01/09/21 10:38 DC 01/08/21 17:36 Warfarin Sodium (Coumadin) 7.5 mg DAILY@17 PO 12/29/20 17:00 12/30/20 07:58 DC 12/29/20 17:04 LINA CASTILLO MD Jan 27, 2021 15:21
[2021-01-27] MEDS: WARFARIN SOD 4MG TAB PO SCH (16:45)
[2021-01-27 20:00] VITALS: BP 119/57
[2021-01-27] MEDS: SENNA 8.6 MG TAB (SENOKOT) PO SCH (20:09)
[2021-01-27] MEDS: QUEtiapine FUMARATE 25 MG TAB PO SCH (20:09)
[2021-01-28 05:15] VITALS: BP 132/63
[2021-01-28 07:20] LABS: INR 2.35; PROTHROMBIN TIME 26.3 SECONDS (12.5-14.3)
[2021-01-28] MEDS: buPROPion 100 MG TAB PO SCH ×2 (07:24→20:54)
[2021-01-28] MEDS: TAMSULOSIN 0.4 MG CAP PO SCH (07:24)
[2021-01-28] MEDS: MEMANTINE 5MG TABLET (NAMENDA) PO SCH (07:24)
[2021-01-28] MEDS: CARVedilol 12.5 MG TAB PO SCH ×2 (07:24→20:56)
[2021-01-28] MEDS: DOCUSATE SODIUM 100MG CAPSULE PO SCH ×2 (07:24→20:56)
[2021-01-28] MEDS: PANTOPRAZOLE 40MG TAB (PROTONIX) PO SCH (07:24)
[2021-01-28] MEDS: MULTIVITAMINS/MINERALS THERAP 1 TAB PO SCH (07:25)
[2021-01-28] MEDS: REMEDY PHYTOPLEX Z-GUARD PASTE 113GM TUBE (FROM STOREROOM PRODUCT) TOP SCH ×3 (07:25→20:56)
[2021-01-28] MEDS: PROPAFENONE 150 MG TAB PO SCH ×2 (07:25→20:54)
--- NOTE | 2021-01-28 10:32 | IPNPDOC ---
PM&R Progress Note DATE OF SERVICE: Jan 28, 2021 [employer] Extension Worker Progress Note Subjective: Patient is wondering if she can have visitors for [facility] and is wondering if she can go home for a visit. REVIEW OF SYSTEMS: The following is a completed review of systems and has been reviewed. Review of systems otherwise unremarkable. PAIN: Patient self reports no pain EYES: No recent vision changes EARS, NOSE, & THROAT: No throat pain, or dysphagia, or rhinorrhea CARDIOVASCULAR: Denies chest pain or palpitations PULMONARY: Denies shortness of breath GASTROINTESTINAL: Denies constipation/diarrhea GENITOURINARY: denies dysuria MUSCULOSKELETAL: generalized weakness NEUROLOGICAL: bilat UE tremor (improving) HEMATOLOGICAL: +anemia SKIN: +sacral ulcer PSYCHIATRIC: +confused All other review of systems found to be negative. PHYSICAL EXAMINATION: VITAL SIGNS: Please see below. GENERAL: Pleasant and cooperative. No acute distress. HEENT: PERRL. Extraocular movements intact. Clear conjunctiva CARDIOVASCULAR: Regular rate and rhythm. No murmurs, rubs, or gallops LUNGS: Clear to auscultation bilaterally. No wheezes. No rhonchi ABDOMEN: Soft, nontender, nondistended. Positive bowel sounds. Normal active bowel sounds NEUROLOGICAL: Alert and oriented to self and place, not time able to follow directions, Cranial nerves II through XII grossly intact. Sensation grossly intact EXTREMITIES: 5-\5 strength bilateral upper extremities. 5-\5 strength right lower extremity. 5-/5 strength in left lower extremity. ASSESSMENT:70-year-old F with past medical history of ESRD who presents status post multiple falls with worsening weakness and confusion PLAN: 1. Rehab- PT/OT advance mobility and ADLs, strengthen/stretch/maintain ROM all 4limbs- ambulating with RW, making gains cognitively in therapy -STRAIGHTENING MACHINE OPERATOR eval for cog and swallow 2. Neuro- encephalopathic with weakness, improving -c/u off Megace which per daughter was restarted a few months ago due to poor po intake as can cause confusion and muscle weakness-patient eating well and subjectively feels stronger while on ARU -c/u Wellbutrin 50mg BID (tapered) -neuro consults, recs appreciated, patient being treated for Lewy Body dementia with Seroquel 25mg qHS-hallucinations seem to be improving, Namenda added for cognitive enhancement-patient's cognition improving and more consistent -Zyprexa prn for agitation 3. CArdiac- hx of afib on Coumadin, daily PT/INRs, c/u rhythmol and Coreg- medicine consulted to assist in overall management -diastolic CHF c/u fluid restriction 4. Resp- monitor for infection 5. Renal- ESRD on HD, renal consulted-recs appreciated -c/u flomax for urinary retention 6. Heme- anemia due to chronic disease s/p transfusions, renal managing 7. GI ppx- protonix 8. DVT ppx- on warfarin 9. Dispo- waiting for a bed at [facility] level, transfer has been delayed due to lack of insurance coverage for dialysis transport from [facility], patient's daughter has agreed to do transport, but [facility] are not able to take on liability, patient s till making gains in therapy Allergies Coded Allergies: Sulfa (Sulfonamide Antibiotics) (Verified Adverse Reaction, Intermediate, upset stomach, 06/27/19) Vital Signs Vital Signs Date Time Temp Pulse Resp B/P (MAP) Pulse Ox O2 Delivery O2 Flow Rate FiO2 01/28/21 07:24 70 132/63 01/28/21 05:15 98.0 17 96 Room Air Laboratory Data Labs 24H Laboratory Tests 2 01/28/21 06:43: Prothrombin Time 26.3H, Prothromb Time International Ratio 2.35 Current Medications Current Medications Current Medications Medications (Trade) Dose Ordered Sig/Eileen Route PRN Reason Start Time Stop Time Status Last Admin Dose Admin Acetaminophen (Tylenol Tab) 650 mg Q4HP PRN PO fever/MILD PAIN (PS 1-4) 12/28/20 16:10 01/18/21 21:16 Bupropion HCl (Wellbutrin Xl) 300 mg DAILY PO 12/29/20 09:00 12/29/20 10:05 DC 12/29/20 09:28 Bupropion HCl (Wellbutrin) 50 mg BID PO 01/06/21 21:00 01/28/21 07:24 Bupropion HCl (Wellbutrin) 50 mg BID@1700,2200 PO 01/01/21 17:00 01/01/21 22:01 DC 01/01/21 22:38 Bupropion HCl (Wellbutrin) 50 mg TID PO 01/01/21 09:00 01/01/21 12:18 DC 01/01/21 11:54 Bupropion HCl (Wellbutrin) 50 mg TID PO 01/02/21 09:00 01/06/21 13:54 DC 01/06/21 08:49 Bupropion HCl (Wellbutrin) 75 mg TID PO 12/29/20 16:00 01/01/21 09:30 DC 12/31/20 20:40 Bupropion HCl (Wellbutrin) 75 mg TID PO 12/30/20 16:00 12/29/20 15:39 DC Bupropion HCl (Wellbutrin) 100 mg TID PO 12/30/20 09:00 12/29/20 14:38 DC Carvedilol (COReg) 12.5 mg BID PO 12/28/20 21:00 01/28/21 07:24 Cinacalcet (Sensipar) 30 mg WeFr@0900 PO 01/01/21 09:00 01/27/21 08:24 Diphenhydramine HCl (Benadryl) 50 mg ASDIRECTED PRN IM ANAPHYLAXIS 01/11/21 00:00 01/11/21 23:59 DC Docusate Sodium (Colace) 100 mg BID PO 12/28/20 21:00 01/28/21 07:24 Epinephrine HCl (Adrenalin) 0.3 mg ASDIRECTED PRN IM ANAPHYLAXIS 01/11/21 00:00 01/11/21 23:59 DC Heparin Sodium (Heparin) Please refer to ... ASDIRECTED XX 01/09/21 05:55 01/10/21 05:54 DC Heparin Sodium (Heparin) Please refer to ... ASDIRECTED XX 01/12/21 07:45 01/13/21 07:44 DC Heparin Sodium (Heparin) Please refer to ... ASDIRECTED XX 01/14/21 06:00 01/15/21 05:59 DC Heparin Sodium (Heparin) Please refer to ... ASDIRECTED XX 01/15/21 20:15 01/16/21 20:14 DC Heparin Sodium (Heparin) Please refer to ... ASDIRECTED XX 12/30/20 10:15 12/31/20 10:14 DC Heparin Sodium (Heparin) Please refer to ... ASDIRECTED XX 01/01/21 12:20 01/02/21 12:19 DC Iron (Venofer) 100 mg HD IV 12/30/20 11:25 01/01/21 11:26 DC 12/30/20 13:11 Iron (Venofer) 100 mg HD IV 01/01/21 13:10 01/23/21 11:49 DC 01/14/21 14:13 Lidocaine HCl (Lidocaine 1% Sdv) 0.5 ml ASDIRECTED PRN SC SEE LABEL COMMENTS 01/09/21 05:55 01/10/21 05:54 DC Lidocaine HCl (Lidocaine 1% Sdv) 0.5 ml ASDIRECTED PRN SC SEE LABEL COMMENTS 01/12/21 07:45 01/13/21 07:44 DC Lidocaine HCl (Lidocaine 1% Sdv) 0.5 ml ASDIRECTED PRN SC SEE LABEL COMMENTS 01/14/21 06:00 01/14/21 23:04 DC Lidocaine HCl (Lidocaine 1% Sdv) 0.5 ml ASDIRECTED PRN SC SEE LABEL COMMENTS 01/15/21 20:15 01/16/21 20:14 DC Lidocaine HCl (Lidocaine 1% Sdv) 0.5 ml ASDIRECTED PRN SC SEE LABEL COMMENTS 12/30/20 10:15 12/31/20 10:14 DC Lidocaine HCl (Lidocaine 1% Sdv) 0.5 ml ASDIRECTED PRN SC SEE LABEL COMMENTS 01/01/21 12:20 01/02/21 12:19 DC Megestrol Acetate (Megace Acetate Suspension) 40 mg QID PO 12/29/20 09:49 12/29/20 14:38 DC Megestrol Acetate (Megace) 40 mg QID PO 12/28/20 17:00 12/29/20 09:18 DC 12/28/20 21:14 Megestrol Acetate (Megace) 40 mg QID PO 12/29/20 09:15 12/29/20 09:49 DC Memantine (Namenda) 5 mg DAILY PO 01/11/21 09:00 01/28/21 07:24 Multivitamins (Theragram-M) 1 tab DAILY PO 01/09/21 09:00 01/23/21 09:28 Mupirocin (Bactroban 2% Ointment) 1 dose BID TOP 12/28/20 21:00 01/05/21 16:04 DC 01/05/21 08:59 Olanzapine (ZyPREXA) 2.5 mg Q6HP PRN PO AGITATION 12/29/20 15:00 01/21/21 08:51 DC Pantoprazole Sodium (Protonix) 40 mg DAILY PO 12/29/20 09:00 01/28/21 07:24 Polyethylene Glycol (Miralax) 1 pkt DAILY PRN PO CONSTIPATION 12/28/20 16:10 01/17/21 17:51 Propafenone HCl (Rythmol) 300 mg BID PO 12/28/20 21:00 01/28/21 07:25 Quetiapine Fumarate (SEROquel) 25 mg QHS PO 12/31/20 21:00 01/27/21 20:09 Senna (Senokot) 1 tab QHS PO 12/28/20 21:00 01/27/21 20:09 Sodium Chloride (Nacl 0.9%) 200 ml ASDIRECTED PRN IV SEE LABEL COMMENTS 01/09/21 05:55 01/10/21 05:54 DC Sodium Chloride (Nacl 0.9%) 200 ml ASDIRECTED PRN IV SEE LABEL COMMENTS 12/30/20 10:15 12/31/20 10:14 DC Sodium Chloride (Nacl 0.9%) 200 ml ASDIRECTED PRN IV SEE LABEL COMMENTS 01/01/21 12:20 01/02/21 12:19 DC Tamsulosin HCl (Flomax) 0.4 mg DAILY PO 12/29/20 09:00 01/28/21 07:24 Warfarin Sodium (Coumadin) 1 mg DAILY@17 PO 01/09/21 17:00 01/20/21 17:41 DC 01/19/21 16:36 Warfarin Sodium (Coumadin) 1 mg DAILY@17 PO 01/09/21 17:00 Cancel Warfarin Sodium (Coumadin) 1 mg DAILY@17 PO 01/21/21 17:00 01/21/21 08:51 DC Warfarin Sodium (Coumadin) 1 mg DAILY@17 PO 12/30/20 17:00 01/03/21 19:09 DC 01/03/21 16:55 Warfarin Sodium (Coumadin) 2 mg DAILY@17 PO 01/04/21 17:00 01/06/21 12:17 DC 01/05/21 16:17 Warfarin Sodium (Coumadin) 2.5 mg DAILY@17 PO 01/09/21 17:00 01/20/21 17:41 DC 01/19/21 16:35 Warfarin Sodium (Coumadin) 2.5 mg DAILY@17 PO 01/21/21 17:00 01/21/21 08:51 DC Warfarin Sodium (Coumadin) 3.5 mg DAILY@17 PO 01/09/21 17:00 01/09/21 17:29 DC Warfarin Sodium (Coumadin) 3.5 mg DAILY@17 PO 01/21/21 17:00 01/20/21 18:04 DC Warfarin Sodium (Coumadin) 4 mg DAILY@17 PO 01/21/21 17:00 01/27/21 16:45 Warfarin Sodium (Coumadin) 5 mg DAILY@17 PO 01/06/21 17:00 01/07/21 07:26 DC 01/06/21 16:21 Warfarin Sodium (Coumadin) 5 mg DAILY@17 PO 01/08/21 17:00 01/09/21 10:38 DC 01/08/21 17:36 Warfarin Sodium (Coumadin) 7.5 mg DAILY@17 PO 12/29/20 17:00 12/30/20 07:58 DC 12/29/20 17:04 LINA CASTILLO MD Jan 28, 2021 10:32
[2021-01-28 16:38] VITALS: BP 139/70
[2021-01-28] MEDS: WARFARIN SOD 4MG TAB PO SCH (16:39)
[2021-01-28 20:00] VITALS: BP 114/56
[2021-01-28] MEDS: QUEtiapine FUMARATE 25 MG TAB PO SCH (20:54)
[2021-01-28] MEDS: SENNA 8.6 MG TAB (SENOKOT) PO SCH (20:56)
[2021-01-29 06:00] VITALS: BP 127/60
[2021-01-29 07:34] LABS: BASO # 0.1 10^3/uL (0.0-0.2); BASO % 1.1 % (0.0-1.0); EOS # 0.2 10^3/uL (0.0-0.5); EOS % 2.6 % (0.0-3.0); HEMATOCRIT 31.6 % (36.0-47.0); HEMOGLOBIN 9.9 g/dl (12.0-15.5); LYMPH # 1.2 10^3/uL (1.5-5.0); LYMPH % 19.1 % (24.0-44.0); MEAN CORPUSCULAR HEMOGLOBIN 30.7 pg (27.0-33.0); MEAN CORPUSCULAR HGB CONC 31.3 g/dl (32.0-36.5); MEAN CORPUSCULAR VOLUME 97.8 fl (80.0-96.0); MONO # 0.7 10^3/uL (0.0-0.8); MONO % 11.7 % (2.0-8.0); NEUTROPHILS % 65.2 % (36.0-66.0); PLATELET COUNT, AUTOMATED 275 10^3/uL (150-450); RED BLOOD COUNT 3.23 10^6/uL (4.00-5.40); WHITE BLOOD COUNT 6.1 10^3/uL (4.0-10.0)
[2021-01-29 07:42] LABS: INR 2.47; PROTHROMBIN TIME 27.3 SECONDS (12.5-14.3)
[2021-01-29 07:57] LABS: CALCIUM LEVEL 8.9 MG/DL (8.8-10.2); CREATININE FOR GFR 3.72 MG/DL (0.55-1.30); GLOMERULAR FILTRATION RATE 12.8 (>39); POTASSIUM SERUM 4.5 MEQ/L (3.5-5.1)
--- NOTE | 2021-01-29 08:22 | IPNPDOC ---
PM&R Progress Note DATE OF SERVICE: Jan 29, 2021 Transmission Superintendent Progress Note Subjective: Patient stating she feels good today and has no complains. REVIEW OF SYSTEMS: The following is a completed review of systems and has been reviewed. Review of systems otherwise unremarkable. PAIN: Patient self reports no pain EYES: No recent vision changes EARS, NOSE, & THROAT: No throat pain, or dysphagia, or rhinorrhea CARDIOVASCULAR: Denies chest pain or palpitations PULMONARY: Denies shortness of breath GASTROINTESTINAL: Denies constipation/diarrhea GENITOURINARY: denies dysuria MUSCULOSKELETAL: generalized weakness NEUROLOGICAL: bilat UE tremor (improving) HEMATOLOGICAL: +anemia SKIN: +sacral ulcer PSYCHIATRIC: +confused All other review of systems found to be negative. PHYSICAL EXAMINATION: VITAL SIGNS: Please see below. GENERAL: Pleasant and cooperative. No acute distress. HEENT: PERRL. Extraocular movements intact. Clear conjunctiva CARDIOVASCULAR: Regular rate and rhythm. No murmurs, rubs, or gallops LUNGS: Clear to auscultation bilaterally. No wheezes. No rhonchi ABDOMEN: Soft, nontender, nondistended. Positive bowel sounds. Normal active bowel sounds NEUROLOGICAL: Alert and oriented to self and place, not time able to follow directions, Cranial nerves II through XII grossly intact. Sensation grossly intact EXTREMITIES: 5-\5 strength bilateral upper extremities. 5-\5 strength right lower extremity. 5-/5 strength in left lower extremity. ASSESSMENT:70-year-old F with past medical history of ESRD who presents status post multiple falls with worsening weakness and confusion PLAN: 1. Rehab- PT/OT advance mobility and ADLs, strengthen/stretch/maintain ROM all 4limbs- ambulating with RW, making gains cognitively in therapy -INFUSION NURSE eval for cog and swallow 2. Neuro- encephalopathic with weakness, improving -c/u off Megace which per daughter was restarted a few months ago due to poor po intake as can cause confusion and muscle weakness-patient eating well and subjectively feels stronger while on ARU -c/u Wellbutrin 50mg BID (tapered) -neuro consults, recs appreciated, patient being treated for Lewy Body dementia with Seroquel 25mg qHS-hallucinations seem to be improving, Namenda added for cognitive enhancement-patient's cognition improving and more consistent -Zyprexa prn for agitation 3. CArdiac- hx of afib on Coumadin, daily PT/INRs, c/u rhythmol and Coreg- medicine consulted to assist in overall management -diastolic CHF c/u fluid restriction 4. Resp- monitor for infection 5. Renal- ESRD on HD, renal consulted-recs appreciated -c/u flomax for urinary retention 6. Heme- anemia due to chronic disease s/p transfusions, renal managing 7. GI ppx- protonix 8. DVT ppx- on warfarin 9. Dispo- waiting for a bed at [facility] level, transfer has been delayed due to lack of insurance coverage for dialysis transport from [facility], patient's daughter has agreed to do transport, but [facility] are not able to take on liability, patient still making gains in therapy Allergies Coded Allergies: Sulfa (Sulfonamide Antibiotics) (Verified Adverse Reaction, Intermediate, upset stomach, 06/27/19) Vital Signs Vital Signs Date Time Temp Pulse Resp B/P (MAP) Pulse Ox O2 Delivery O2 Flow Rate FiO2 01/29/21 06:00 97.3 67 18 127/60 (82) 99 Room Air Laboratory Data CBC/BMP Laboratory Tests 01/29/21 06:34 Labs 24H Laboratory Tests 2 01/29/21 06:34: Immature Granulocyte % (Auto) 0.3, Neutrophils (%) (Auto) 65.2, Lymphocytes (%) (Auto) 19.1L, Monocytes (%) (Auto) 11.7H, Eosinophils (%) (Auto) 2.6, Basophils (%) (Auto) 1.1H, Neutrophils # (Auto) 4.0, Lymphocytes # (Auto) 1.2L, Monocytes # (Auto) 0.7, Eosinophils # (Auto) 0.2, Basophils # (Auto) 0.1, Nucleated Red Blood Cells % (auto) 0.0, Prothrombin Time 27.3H, Prothromb Time International Ratio 2.47, Anion Gap 8, Glomerular Filtration Rate 12.8L, Calcium Level 8.9 Current Medications Current Medications Current Medications Medications (Trade) Dose Ordered Sig/Eileen Route PRN Reason Start Time Stop Time Status Last Admin Dose Admin Acetaminophen (Tylenol Tab) 650 mg Q4HP PRN PO fever/MILD PAIN (PS 1-4) 12/28/20 16:10 01/18/21 21:16 Bupropion HCl (Wellbutrin Xl) 300 mg DAILY PO 12/29/20 09:00 12/29/20 10:05 DC 12/29/20 09:28 Bupropion HCl (Wellbutrin) 50 mg BID PO 01/06/21 21:00 01/28/21 20:54 Bupropion HCl (Wellbutrin) 50 mg BID@1700,2200 PO 01/01/21 17:00 01/01/21 22:01 DC 01/01/21 22:38 Bupropion HCl (Wellbutrin) 50 mg TID PO 01/01/21 09:00 01/01/21 12:18 DC 01/01/21 11:54 Bupropion HCl (Wellbutrin) 50 mg TID PO 01/02/21 09:00 01/06/21 13:54 DC 01/06/21 08:49 Bupropion HCl (Wellbutrin) 75 mg TID PO 12/29/20 16:00 01/01/21 09:30 DC 12/31/20 20:40 Bupropion HCl (Wellbutrin) 75 mg TID PO 12/30/20 16:00 12/29/20 15:39 DC Bupropion HCl (Wellbutrin) 100 mg TID PO 12/30/20 09:00 12/29/20 14:38 DC Carvedilol (COReg) 12.5 mg BID PO 12/28/20 21:00 01/28/21 20:56 Cinacalcet (Sensipar) 30 mg WeFr@0900 PO 01/01/21 09:00 01/27/21 08:24 Diphenhydramine HCl (Benadryl) 50 mg ASDIRECTED PRN IM ANAPHYLAXIS 01/11/21 00:00 01/11/21 23:59 DC Docusate Sodium (Colace) 100 mg BID PO 12/28/20 21:00 01/28/21 07:24 Epinephrine HCl (Adrenalin) 0.3 mg ASDIRECTED PRN IM ANAPHYLAXIS 01/11/21 00:00 01/11/21 23:59 DC Heparin Sodium (Heparin) Please refer to ... ASDIRECTED XX 01/09/21 05:55 01/10/21 05:54 DC Heparin Sodium (Heparin) Please refer to ... ASDIRECTED XX 01/12/21 07:45 01/13/21 07:44 DC Heparin Sodium (Heparin) Please refer to ... ASDIRECTED XX 01/14/21 06:00 01/15/21 05:59 DC Heparin Sodium (Heparin) Please refer to ... ASDIRECTED XX 01/15/21 20:15 01/16/21 20:14 DC Heparin Sodium (Heparin) Please refer to ... ASDIRECTED XX 12/30/20 10:15 12/31/20 10:14 DC Heparin Sodium (Heparin) Please refer to ... ASDIRECTED XX 01/01/21 12:20 01/02/21 12:19 DC Iron (Venofer) 100 mg HD IV 12/30/20 11:25 01/01/21 11:26 DC 12/30/20 13:11 Iron (Venofer) 100 mg HD IV 01/01/21 13:10 01/23/21 11:49 DC 01/14/21 14:13 Lidocaine HCl (Lidocaine 1% Sdv) 0.5 ml ASDIRECTED PRN SC SEE LABEL COMMENTS 01/09/21 05:55 01/10/21 05:54 DC Lidocaine HCl (Lidocaine 1% Sdv) 0.5 ml ASDIRECTED PRN SC SEE LABEL COMMENTS 01/12/21 07:45 01/13/21 07:44 DC Lidocaine HCl (Lidocaine 1% Sdv) 0.5 ml ASDIRECTED PRN SC SEE LABEL COMMENTS 01/14/21 06:00 01/14/21 23:04 DC Lidocaine HCl (Lidocaine 1% Sdv) 0.5 ml ASDIRECTED PRN SC SEE LABEL COMMENTS 01/15/21 20:15 01/16/21 20:14 DC Lidocaine HCl (Lidocaine 1% Sdv) 0.5 ml ASDIRECTED PRN SC SEE LABEL COMMENTS 12/30/20 10:15 12/31/20 10:14 DC Lidocaine HCl (Lidocaine 1% Sdv) 0.5 ml ASDIRECTED PRN SC SEE LABEL COMMENTS 01/01/21 12:20 01/02/21 12:19 DC Megestrol Acetate (Megace Acetate Suspension) 40 mg QID PO 12/29/20 09:49 12/29/20 14:38 DC Megestrol Acetate (Megace) 40 mg QID PO 12/28/20 17:00 12/29/20 09:18 DC 12/28/20 21:14 Megestrol Acetate (Megace) 40 mg QID PO 12/29/20 09:15 12/29/20 09:49 DC Memantine (Namenda) 5 mg DAILY PO 01/11/21 09:00 01/28/21 07:24 Multivitamins (Theragram-M) 1 tab DAILY PO 01/09/21 09:00 01/23/21 09:28 Mupirocin (Bactroban 2% Ointment) 1 dose BID TOP 12/28/20 21:00 01/05/21 16:04 DC 01/05/21 08:59 Olanzapine (ZyPREXA) 2.5 mg Q6HP PRN PO AGITATION 12/29/20 15:00 01/21/21 08:51 DC Pantoprazole Sodium (Protonix) 40 mg DAILY PO 12/29/20 09:00 01/28/21 07:24 Polyethylene Glycol (Miralax) 1 pkt DAILY PRN PO CONSTIPATION 12/28/20 16:10 01/17/21 17:51 Propafenone HCl (Rythmol) 300 mg BID PO 12/28/20 21:00 01/28/21 20:54 Quetiapine Fumarate (SEROquel) 25 mg QHS PO 12/31/20 21:00 01/28/21 20:54 Senna (Senokot) 1 tab QHS PO 12/28/20 21:00 01/27/21 20:09 Sodium Chloride (Nacl 0.9%) 200 ml ASDIRECTED PRN IV SEE LABEL COMMENTS 01/09/21 05:55 01/10/21 05:54 DC Sodium Chloride (Nacl 0.9%) 200 ml ASDIRECTED PRN IV SEE LABEL COMMENTS 12/30/20 10:15 12/31/20 10:14 DC Sodium Chloride (Nacl 0.9%) 200 ml ASDIRECTED PRN IV SEE LABEL COMMENTS 01/01/21 12:20 01/02/21 12:19 DC Tamsulosin HCl (Flomax) 0.4 mg DAILY PO 12/29/20 09:00 01/28/21 07:24 Warfarin Sodium (Coumadin) 1 mg DAILY@17 PO 01/09/21 17:00 01/20/21 17:41 DC 01/19/21 16:36 Warfarin Sodium (Coumadin) 1 mg DAILY@17 PO 01/09/21 17:00 Cancel Warfarin Sodium (Coumadin) 1 mg DAILY@17 PO 01/21/21 17:00 01/21/21 08:51 DC Warfarin Sodium (Coumadin) 1 mg DAILY@17 PO 12/30/20 17:00 01/03/21 19:09 DC 01/03/21 16:55 Warfarin Sodium (Coumadin) 2 mg DAILY@17 PO 01/04/21 17:00 01/06/21 12:17 DC 01/05/21 16:17 Warfarin Sodium (Coumadin) 2.5 mg DAILY@17 PO 01/09/21 17:00 01/20/21 17:41 DC 01/19/21 16:35 Warfarin Sodium (Coumadin) 2.5 mg DAILY@17 PO 01/21/21 17:00 01/21/21 08:51 DC Warfarin Sodium (Coumadin) 3.5 mg DAILY@17 PO 01/09/21 17:00 01/09/21 17:29 DC Warfarin Sodium (Coumadin) 3.5 mg DAILY@17 PO 01/21/21 17:00 01/20/21 18:04 DC Warfarin Sodium (Coumadin) 4 mg DAILY@17 PO 01/21/21 17:00 01/28/21 16:39 Warfarin Sodium (Coumadin) 5 mg DAILY@17 PO 01/06/21 17:00 01/07/21 07:26 DC 01/06/21 16:21 Warfarin Sodium (Coumadin) 5 mg DAILY@17 PO 01/08/21 17:00 01/09/21 10:38 DC 01/08/21 17:36 Warfarin Sodium (Coumadin) 7.5 mg DAILY@17 PO 12/29/20 17:00 12/30/20 07:58 DC 12/29/20 17:04 LINA CASTILLO MD Jan 29, 2021 08:22
[2021-01-29] MEDS: PANTOPRAZOLE 40MG TAB (PROTONIX) PO SCH (08:35)
[2021-01-29] MEDS: PROPAFENONE 150 MG TAB PO SCH ×2 (08:35→20:07)
[2021-01-29] MEDS: DOCUSATE SODIUM 100MG CAPSULE PO SCH ×2 (08:35→20:07)
[2021-01-29] MEDS: MULTIVITAMINS/MINERALS THERAP 1 TAB PO SCH (08:35)
[2021-01-29] MEDS: CINACALCET 30 MG TAB (SENSIPAR) PO SCH (08:35)
[2021-01-29] MEDS: MEMANTINE 5MG TABLET (NAMENDA) PO SCH (08:35)
[2021-01-29] MEDS: buPROPion 100 MG TAB PO SCH ×2 (08:35→20:08)
[2021-01-29] MEDS: TAMSULOSIN 0.4 MG CAP PO SCH (08:35)
[2021-01-29] MEDS: CARVedilol 12.5 MG TAB PO SCH ×2 (08:36→20:08)
[2021-01-29] MEDS: REMEDY PHYTOPLEX Z-GUARD PASTE 113GM TUBE (FROM STOREROOM PRODUCT) TOP SCH ×3 (08:43→20:08)
[2021-01-29 14:00] VITALS: BP 124/64
[2021-01-29] MEDS: WARFARIN SOD 4MG TAB PO SCH (16:59)
--- NOTE | 2021-01-29 18:35 | IPN ---
NEPHROLOGY PROGRESS NOTE DATE: 01/29/2021 SUBJECTIVE: Ms. Santillan is seen this morning on her bedside. She is sitting in the chair and denies any new complaints. She has been making progress with rehabilitation. She denies any nausea or vomiting. She has no dyspnea or chest pain and reports improved lower extremity edema. She was dialyzed yesterday and tolerated it well. PHYSICAL EXAMINATION: Temperature 97.3 degrees Fahrenheit, heart rate 64 per minute, respiratory rate 18 per minute, blood pressure 124/60 mmHg, oxygen saturation 99% on room air. HEAD: Atraumatic. NECK: Supple and without jugular venous distention (JVD) or thyroid enlargement. HEART SOUNDS: Regular. LUNGS: Clear to auscultation. ABDOMEN: Soft and nontender. Bowel sounds are normal. EXTREMITIES: Without any cyanosis or clubbing. Lower extremity edema has resolved. NEUROLOGIC: She is without any new changes. She remains somewhat disoriented and at times confused. LABORATORY DATA: Today's labs show WBC 6.1, hemoglobin 9.9, hematocrit 31.6. Sodium 141, potassium 4.5, BUN 24, creatinine 3.72. PROBLEMS: 1. End-stage renal disease. Patient was dialyzed yesterday and will be scheduled for next dialysis on January 30, 2021. No urgent need for dialysis today. 2. Anemia. Her anemia has worsened without any blood loss. I suspect some lab radiation, as anemia was expected to improve with fluid removal. CBC should be repeated again. She will continue with weekly dose of Aranesp. 3. Hypertension. Blood pressure has been well-controlled on current medications and I did not make any changes.
[2021-01-29] MEDS: SENNA 8.6 MG TAB (SENOKOT) PO SCH (20:07)
[2021-01-29] MEDS: QUEtiapine FUMARATE 25 MG TAB PO SCH (20:07)
[2021-01-29 20:10] VITALS: BP 148/66
[2021-01-30 06:02] VITALS: BP 150/67
[2021-01-30] MEDS ORDERED: LIDOCAINE 1% SDV 5ML VIAL SC PRN (07:15)
[2021-01-30] MEDS ORDERED: SODIUM CHLORIDE 0.9% 1000ML IV PRN (07:15)
[2021-01-30 08:36] LABS: INR 2.39; PROTHROMBIN TIME 26.6 SECONDS (12.5-14.3)
[2021-01-30] MEDS: MULTIVITAMINS/MINERALS THERAP 1 TAB PO SCH (09:00)
[2021-01-30] MEDS: REMEDY PHYTOPLEX Z-GUARD PASTE 113GM TUBE (FROM STOREROOM PRODUCT) TOP SCH ×3 (09:00→20:35)
[2021-01-30] MEDS: TAMSULOSIN 0.4 MG CAP PO SCH (09:32)
[2021-01-30] MEDS: PANTOPRAZOLE 40MG TAB (PROTONIX) PO SCH (09:32)
[2021-01-30] MEDS: DOCUSATE SODIUM 100MG CAPSULE PO SCH ×2 (09:32→20:32)
[2021-01-30] MEDS: PROPAFENONE 150 MG TAB PO SCH ×2 (09:33→20:32)
[2021-01-30] MEDS: buPROPion 100 MG TAB PO SCH ×2 (09:33→20:32)
[2021-01-30] MEDS: CARVedilol 12.5 MG TAB PO SCH ×2 (09:33→20:33)
[2021-01-30] MEDS: MEMANTINE 5MG TABLET (NAMENDA) PO SCH (09:33)
[2021-01-30] MEDS: DARBEPOETIN 100 MCG/0.5 ML *DIALYSIS* SYRINGE (J0882) IV SCH ×2 (12:51→13:39)
[2021-01-30 14:00] VITALS: BP 123/58
[2021-01-30] MEDS: WARFARIN SOD 4MG TAB PO SCH (17:38)
--- NOTE | 2021-01-30 19:01 | IPN ---
NEPHROLOGY PROGRESS NOTE DATE: 01/30/2021 SUBJECTIVE: Patient was seen and examined at the bedside today morning. She is afebrile, hemodynamically stable. Today is the patient's regular day of dialysis. She denies any active complaints at this time. OBJECTIVE: VITAL SIGNS: Temperature 96.8 degrees Fahrenheit, blood pressure 123/58, pulse 68, respiratory rate 18, saturating 98% on room air. INTAKE AND OUTPUT: Urine output is not recorded. Weight in the bed scale was 61.7 kg yesterday. PHYSICAL EXAMINATION: GENERAL: Patient is awake, alert, oriented times two, sitting up in the sofa in no apparent distress.. HEAD AND NECK EXAM: Extraocular muscles intact. Pupils equally round and reactive to light. Mucous membranes are moist. Neck is supple. There is no jugular venous distention (JVD). CARDIOVASCULAR: S1, S2. Regular rate. There is no edema of the bilateral lower extremities. RESPIRATORY: Chest is clear to auscultation bilaterally. Bilateral equal air entry. No rales or rhonchi. ABDOMEN: Soft. Positive bowel sounds. Nontender. No organomegaly. MUSCULOSKELETAL: No clubbing or cyanosis. Pulses are 2+. CENTRAL NERVOUS SYSTEM (ADMINISTRATION CLERK): No focal deficits. Power is 5/5 in all extremities. LABORATORY REVIEW: CBC showed a WBC 6.1, hemoglobin 9.1. That is from yesterday. BMP done yesterday showed a potassium 4.5 and a creatinine of 3.7. CURRENT INPATIENT MEDICATIONS: Patient's medications were all reviewed by myself. No significant change in the medications as compared with yesterday. ASSESSMENT AND PLAN: 1. End-stage renal disease. Today is patient's regular day of dialysis. Ultrafiltration goal is 1 liter. 2. Anemia in end-stage renal disease. Patient's latest hemoglobin is 9.9 from yesterday. She is currently on Aranesp 100 mcg with dialysis. Continue current dose. 3. Hypertension. Blood pressure is controlled with Coreg. 4. Secondary hyperparathyroidism. Continue current dose of Sensipar twice a week.
[2021-01-30 20:00] VITALS: BP 130/58
[2021-01-30] MEDS: QUEtiapine FUMARATE 25 MG TAB PO SCH (20:32)
[2021-01-30] MEDS: SENNA 8.6 MG TAB (SENOKOT) PO SCH (20:33)
[2021-01-31 06:00] VITALS: BP 143/64
[2021-01-31 07:22] LABS: INR 2.02; PROTHROMBIN TIME 23.3 SECONDS (12.5-14.3)
[2021-01-31] MEDS: REMEDY PHYTOPLEX Z-GUARD PASTE 113GM TUBE (FROM STOREROOM PRODUCT) TOP SCH ×3 (09:00→20:12)
[2021-01-31] MEDS: MULTIVITAMINS/MINERALS THERAP 1 TAB PO SCH ×2 (09:00→09:08)
[2021-01-31] MEDS: MEMANTINE 5MG TABLET (NAMENDA) PO SCH (09:08)
[2021-01-31] MEDS: CARVedilol 12.5 MG TAB PO SCH ×2 (09:08→20:11)
[2021-01-31] MEDS: PROPAFENONE 150 MG TAB PO SCH ×2 (09:08→20:10)
[2021-01-31] MEDS: DOCUSATE SODIUM 100MG CAPSULE PO SCH ×2 (09:08→20:10)
[2021-01-31] MEDS: TAMSULOSIN 0.4 MG CAP PO SCH (09:08)
[2021-01-31] MEDS: buPROPion 100 MG TAB PO SCH ×2 (09:08→20:11)
[2021-01-31] MEDS: PANTOPRAZOLE 40MG TAB (PROTONIX) PO SCH (09:08)
[2021-01-31 14:00] VITALS: BP 143/61
[2021-01-31] MEDS: WARFARIN SOD 4MG TAB PO SCH (16:43)
[2021-01-31 20:00] VITALS: BP 133/60
[2021-01-31] MEDS: SENNA 8.6 MG TAB (SENOKOT) PO SCH (20:10)
[2021-01-31] MEDS: QUEtiapine FUMARATE 25 MG TAB PO SCH (20:10)
[2021-02-01 05:46] VITALS: BP 143/67
[2021-02-01 07:50] LABS: BASO # 0.1 10^3/uL (0.0-0.2); BASO % 1.2 % (0.0-1.0); EOS # 0.2 10^3/uL (0.0-0.5); EOS % 2.3 % (0.0-3.0); HEMATOCRIT 30.5 % (36.0-47.0); LYMPH # 1.1 10^3/uL (1.5-5.0); LYMPH % 13.6 % (24.0-44.0); MEAN CORPUSCULAR HEMOGLOBIN 32.3 pg (27.0-33.0); MEAN CORPUSCULAR HGB CONC 32.8 g/dl (32.0-36.5); MEAN CORPUSCULAR VOLUME 98.4 fl (80.0-96.0); MONO # 0.8 10^3/uL (0.0-0.8); MONO % 10.4 % (2.0-8.0); NEUTROPHILS # 5.5 10^3/uL (1.5-8.5); NEUTROPHILS % 71.7 % (36.0-66.0); PLATELET COUNT, AUTOMATED 277 10^3/uL (150-450); WHITE BLOOD COUNT 7.7 10^3/uL (4.0-10.0)
[2021-02-01 08:06] LABS: INR 2.09; PROTHROMBIN TIME 23.9 SECONDS (12.5-14.3)
[2021-02-01 08:10] LABS: CREATININE FOR GFR 5.04 MG/DL (0.55-1.30); POTASSIUM SERUM 4.3 MEQ/L (3.5-5.1)
[2021-02-01] MEDS: REMEDY PHYTOPLEX Z-GUARD PASTE 113GM TUBE (FROM STOREROOM PRODUCT) TOP SCH ×3 (09:00→20:08)
[2021-02-01] MEDS: MULTIVITAMINS/MINERALS THERAP 1 TAB PO SCH (09:00)
[2021-02-01] MEDS: DOCUSATE SODIUM 100MG CAPSULE PO SCH ×2 (09:00→20:07)
[2021-02-01] MEDS: buPROPion 100 MG TAB PO SCH ×2 (10:02→20:07)
[2021-02-01] MEDS: MEMANTINE 5MG TABLET (NAMENDA) PO SCH (10:02)
[2021-02-01] MEDS: TAMSULOSIN 0.4 MG CAP PO SCH (10:02)
[2021-02-01] MEDS: PANTOPRAZOLE 40MG TAB (PROTONIX) PO SCH (10:02)
[2021-02-01] MEDS: PROPAFENONE 150 MG TAB PO SCH ×2 (10:02→20:07)
[2021-02-01] MEDS: CARVedilol 12.5 MG TAB PO SCH ×2 (10:03→20:07)
[2021-02-01 14:00] VITALS: BP 141/63
[2021-02-01] MEDS: WARFARIN SOD 4MG TAB PO SCH (18:10)
[2021-02-01 20:00] VITALS: BP 141/65
[2021-02-01] MEDS: SENNA 8.6 MG TAB (SENOKOT) PO SCH (20:07)
[2021-02-01] MEDS: QUEtiapine FUMARATE 25 MG TAB PO SCH (20:07)
[2021-02-02 05:20] VITALS: BP 142/65
[2021-02-02] MEDS ORDERED: LIDOCAINE 1% SDV 5ML VIAL SC PRN (07:15)
[2021-02-02 07:20] LABS: INR 2.35; PROTHROMBIN TIME 26.3 SECONDS (12.5-14.3)
--- NOTE | 2021-02-02 07:50 | IPNPDOC ---
PM&R Progress Note DATE OF SERVICE: Feb 02, 2021 Shipping [employer]acker Progress Note Subjective: Patient awaiting bed at SNF. REVIEW OF SYSTEMS: The following is a completed review of systems and has been reviewed. Review of systems otherwise unremarkable. PAIN: Patient self reports no pain EYES: No recent vision changes EARS, NOSE, & THROAT: No throat pain, or dysphagia, or rhinorrhea CARDIOVASCULAR: Denies chest pain or palpitations PULMONARY: Denies shortness of breath GASTROINTESTINAL: Denies constipation/diarrhea GENITOURINARY: denies dysuria MUSCULOSKELETAL: generalized weakness NEUROLOGICAL: bilat UE tremor (improving) HEMATOLOGICAL: +anemia SKIN: +sacral ulcer PSYCHIATRIC: +confused All other review of systems found to be negative. PHYSICAL EXAMINATION: VITAL SIGNS: Please see below. GENERAL: Pleasant and cooperative. No acute distress. HEENT: PERRL. Extraocular movements intact. Clear conjunctiva CARDIOVASCULAR: Regular rate and rhythm. No murmurs, rubs, or gallops LUNGS: Clear to auscultation bilaterally. No wheezes. No rhonchi ABDOMEN: Soft, nontender, nondistended. Positive bowel sounds. Normal active bowel sounds NEUROLOGICAL: Alert and oriented to self and place, not time able to follow dire ctions, Cranial nerves II through XII grossly intact. Sensation grossly intact EXTREMITIES: 5-\5 strength bilateral upper extremities. 5-\5 strength right lower extremity. 5-/5 strength in left lower extremity. ASSESSMENT:70-year-old F with past medical history of ESRD who presents status post multiple falls with worsening weakness and confusion PLAN: 1. Rehab- PT/OT advance mobility and ADLs, strengthen/stretch/maintain ROM all 4limbs- ambulating with RW, making gains cognitively in therapy -[employer] eval for cog and swallow 2. Neuro- encephalopathic with weakness, improving -c/u off Megace which per daughter was restarted a few months ago due to poor po intake as can cause confusion and muscle weakness-patient eating well and subjectively feels stronger while on ARU -c/u Wellbutrin 50mg BID (tapered) -neuro consults, recs appreciated, patient being treated for Lewy Body dementia with Seroquel 25mg qHS-hallucinations seem to be improving, Namenda added for cognitive enhancement-patient's cognition improving and more consistent -Zyprexa prn for agitation 3. CArdiac- hx of afib on Coumadin, daily PT/INRs, c/u rhythmol and Coreg- m edicine consulted to assist in overall management -diastolic CHF c/u fluid restriction 4. Resp- monitor for infection 5. Renal- ESRD on HD, renal consulted-recs appreciated -c/u flomax for urinary retention 6. Heme- anemia due to chronic disease s/p transfusions, renal managing 7. GI ppx- protonix 8. DVT ppx- on warfarin 9. Dispo- waiting for a bed at [facility] level, transfer has been delayed due to lack of insurance coverage for dialysis transport from [facility], patient's daughter has agreed to do transport, but [facility] are not able to take on liability, patient still making gains in therapy Allergies Coded Allergies: Sulfa (Sulfonamide Antibiotics) (Verified Adverse Reaction, Intermediate, upset stomach, 06/27/19) Vital Signs Vital Signs Date Time Temp Pulse Resp B/P (MAP) Pulse Ox O2 Delivery O2 Flow Rate FiO2 02/02/21 05:20 97.6 65 18 142/65 (90) 98 Room Air Laboratory Data Labs 24H Laboratory Tests 2 02/02/21 06:25: Prothrombin Time 26.3H, Prothromb Time International Ratio 2.35 Current Medications Current Medications Current Medications Medications (Trade) Dose Ordered Sig/Eileen Route PRN Reason Start Time Stop Time Status Last Admin Dose Admin Acetaminophen (Tylenol Tab) 650 mg Q4HP PRN PO fever/MILD PAIN (PS 1-4) 12/28/20 16:10 01/18/21 21:16 Bupropion HCl (Wellbutrin Xl) 300 mg DAILY PO 12/29/20 09:00 12/29/20 10:05 DC 12/29/20 09:28 Bupropion HCl (Wellbutrin) 50 mg BID PO 01/06/21 21:00 02/01/21 20:07 Bupropion HCl (Wellbutrin) 50 mg BID@1700,2200 PO 01/01/21 17:00 01/01/21 22:01 DC 01/01/21 22:38 Bupropion HCl (Wellbutrin) 50 mg TID PO 01/01/21 09:00 01/01/21 12:18 DC 01/01/21 11:54 Bupropion HCl (Wellbutrin) 50 mg TID PO 01/02/21 09:00 01/06/21 13:54 DC 01/06/21 08:49 Bupropion HCl (Wellbutrin) 75 mg TID PO 12/29/20 16:00 01/01/21 09:30 DC 12/31/20 20:40 Bupropion HCl (Wellbutrin) 75 mg TID PO 12/30/20 16:00 12/29/20 15:39 DC Bupropion HCl (Wellbutrin) 100 mg TID PO 12/30/20 09:00 12/29/20 14:38 DC Carvedilol (COReg) 12.5 mg BID PO 12/28/20 21:00 02/01/21 20:07 Cinacalcet (Sensipar) 30 mg WeFr@0900 PO 01/01/21 09:00 01/31/21 08:59 DC 01/29/21 08:35 Cinacalcet (Sensipar) 30 mg WeFr@0900 PO 02/03/21 09:00 Darbepoetin Raul (Aranesp (Dialysis Use)) 100 mcg Sa@09 IV 01/30/21 09:00 01/30/21 13:39 Diphenhydramine HCl (Benadryl) 50 mg ASDIRECTED PRN IM ANAPHYLAXIS 01/11/21 00:00 01/11/21 23:59 DC Docusate Sodium (Colace) 100 mg BID PO 12/28/20 21:00 02/01/21 20:07 Epinephrine HCl (Adrenalin) 0.3 mg ASDIRECTED PRN IM ANAPHYLAXIS 01/11/21 00:00 01/11/21 23:59 DC Heparin Sodium (Heparin) Please refer to ... ASDIRECTED XX 01/09/21 05:55 01/10/21 05:54 DC Heparin Sodium (Heparin) Please refer to ... ASDIRECTED XX 01/12/21 07:45 01/13/21 07:44 DC Heparin Sodium (Heparin) Please refer to ... ASDIRECTED XX 01/14/21 06:00 01/15/21 05:59 DC Heparin Sodium (Heparin) Please refer to ... ASDIRECTED XX 01/15/21 20:15 01/16/21 20:14 DC Heparin Sodium (Heparin) Please refer to ... ASDIRECTED XX 12/30/20 10:15 12/31/20 10:14 DC Heparin Sodium (Heparin) Please refer to ... ASDIRECTED XX 01/01/21 12:20 01/02/21 12:19 DC Heparin Sodium (Heparin) Please refer to ... ASDIRECTED XX 01/30/21 07:15 01/31/21 07:14 DC Heparin Sodium (Heparin) Please refer to ... ASDIRECTED XX 02/02/21 07:15 02/03/21 07:14 Iron (Venofer) 100 mg HD IV 12/30/20 11:25 01/01/21 11:26 DC 12/30/20 13:11 Iron (Venofer) 100 mg HD IV 01/01/21 13:10 01/23/21 11:49 DC 01/14/21 14:13 Lidocaine HCl (Lidocaine 1% Sdv) 0.5 ml ASDIRECTED PRN SC SEE LABEL COMMENTS 01/09/21 05:55 01/10/21 05:54 DC Lidocaine HCl (Lidocaine 1% Sdv) 0.5 ml ASDIRECTED PRN SC SEE LABEL COMMENTS 01/12/21 07:45 01/13/21 07:44 DC Lidocaine HCl (Lidocaine 1% Sdv) 0.5 ml ASDIRECTED PRN SC SEE LABEL COMMENTS 01/14/21 06:00 01/14/21 23:04 DC Lidocaine HCl (Lidocaine 1% Sdv) 0.5 ml ASDIRECTED PRN SC SEE LABEL COMMENTS 01/15/21 20:15 01/16/21 20:14 DC Lidocaine HCl (Lidocaine 1% Sdv) 0.5 ml ASDIRECTED PRN SC SEE LABEL COMMENTS 12/30/20 10:15 12/31/20 10:14 DC Lidocaine HCl (Lidocaine 1% Sdv) 0.5 ml ASDIRECTED PRN SC SEE LABEL COMMENTS 01/01/21 12:20 01/02/21 12:19 DC Lidocaine HCl (Lidocaine 1% Sdv) 0.5 ml ASDIRECTED PRN SC SEE LABEL COMMENTS 01/30/21 07:15 01/31/21 07:14 DC Lidocaine HCl (Lidocaine 1% Sdv) 0.5 ml ASDIRECTED PRN SC SEE LABEL COMMENTS 02/02/21 07:15 02/03/21 07:14 Megestrol Acetate (Megace Acetate Suspension) 40 mg QID PO 12/29/20 09:49 12/29/20 14:38 DC Megestrol Acetate (Megace) 40 mg QID PO 12/28/20 17:00 12/29/20 09:18 DC 12/28/20 21:14 Megestrol Acetate (Megace) 40 mg QID PO 12/29/20 09:15 12/29/20 09:49 DC Memantine (Namenda) 5 mg DAILY PO 01/11/21 09:00 02/01/21 10:02 Miscellaneous (Unresolved Clarification Entry) SEE LABEL COMMENTS DAILY XX 01/30/21 09:00 01/31/21 14:41 DC Miscellaneous (Unresolved Clarification Entry) SEE LABEL COMMENTS DAILY XX 02/01/21 09:00 Multivitamins (Theragram-M) 1 tab DAILY PO 01/09/21 09:00 01/29/21 08:35 Mupirocin (Bactroban 2% Ointment) 1 dose BID TOP 12/28/20 21:00 01/05/21 16:04 DC 01/05/21 08:59 Olanzapine (ZyPREXA) 2.5 mg Q6HP PRN PO AGITATION 12/29/20 15:00 01/21/21 08:51 DC Pantoprazole Sodium (Protonix) 40 mg DAILY PO 12/29/20 09:00 02/01/21 10:02 Polyethylene Glycol (Miralax) 1 pkt DAILY PRN PO CONSTIPATION 12/28/20 16:10 01/17/21 17:51 Propafenone HCl (Rythmol) 300 mg BID PO 12/28/20 21:00 02/01/21 20:07 Quetiapine Fumarate (SEROquel) 25 mg QHS PO 12/31/20 21:00 02/01/21 20:07 Senna (Senokot) 1 tab QHS PO 12/28/20 21:00 02/01/21 20:07 Sodium Chloride (Nacl 0.9%) 200 ml ASDIRECTED PRN IV SEE LABEL COMMENTS 01/09/21 05:55 01/10/21 05:54 DC Sodium Chloride (Nacl 0.9%) 200 ml ASDIRECTED PRN IV SEE LABEL COMMENTS 12/30/20 10:15 12/31/20 10:14 DC Sodium Chloride (Nacl 0.9%) 200 ml ASDIRECTED PRN IV SEE LABEL COMMENTS 01/01/21 12:20 01/02/21 12:19 DC Sodium Chloride (Nacl 0.9%) 200 ml ASDIRECTED PRN IV SEE LABEL COMMENTS 01/30/21 07:15 01/31/21 07:14 DC Tamsulosin HCl (Flomax) 0.4 mg DAILY PO 12/29/20 09:00 02/01/21 10:02 Warfarin Sodium (Coumadin) 1 mg DAILY@17 PO 01/09/21 17:00 01/20/21 17:41 DC 01/19/21 16:36 Warfarin Sodium (Coumadin) 1 mg DAILY@17 PO 01/09/21 17:00 Cancel Warfarin Sodium (Coumadin) 1 mg DAILY@17 PO 01/21/21 17:00 01/21/21 08:51 DC Warfarin Sodium (Coumadin) 1 mg DAILY@17 PO 12/30/20 17:00 01/03/21 19:09 DC 01/03/21 16:55 Warfarin Sodium (Coumadin) 2 mg DAILY@17 PO 01/04/21 17:00 01/06/21 12:17 DC 01/05/21 16:17 Warfarin Sodium (Coumadin) 2.5 mg DAILY@17 PO 01/09/21 17:00 01/20/21 17:41 DC 01/19/21 16:35 Warfarin Sodium (Coumadin) 2.5 mg DAILY@17 PO 01/21/21 17:00 01/21/21 08:51 DC Warfarin Sodium (Coumadin) 3.5 mg DAILY@17 PO 01/09/21 17:00 01/09/21 17:29 DC Warfarin Sodium (Coumadin) 3.5 mg DAILY@17 PO 01/21/21 17:00 01/20/21 18:04 DC Warfarin Sodium (Coumadin) 4 mg DAILY@17 PO 01/21/21 17:00 02/01/21 18:10 Warfarin Sodium (Coumadin) 5 mg DAILY@17 PO 01/06/21 17:00 01/07/21 07:26 DC 01/06/21 16:21 Warfarin Sodium (Coumadin) 5 mg DAILY@17 PO 01/08/21 17:00 01/09/21 10:38 DC 01/08/21 17:36 Warfarin Sodium (Coumadin) 7.5 mg DAILY@17 PO 12/29/20 17:00 12/30/20 07:58 DC 12/29/20 17:04 LINA CASTILLO MD Feb 02, 2021 07:50
[2021-02-02] MEDS: REMEDY PHYTOPLEX Z-GUARD PASTE 113GM TUBE (FROM STOREROOM PRODUCT) TOP SCH ×3 (09:00→20:03)
[2021-02-02] MEDS: DOCUSATE SODIUM 100MG CAPSULE PO SCH ×2 (09:00→20:04)
[2021-02-02] MEDS: MULTIVITAMINS/MINERALS THERAP 1 TAB PO SCH (09:00)
[2021-02-02] MEDS: PANTOPRAZOLE 40MG TAB (PROTONIX) PO SCH (09:37)
[2021-02-02] MEDS: MEMANTINE 5MG TABLET (NAMENDA) PO SCH (09:37)
[2021-02-02] MEDS: CARVedilol 12.5 MG TAB PO SCH ×2 (09:37→20:03)
[2021-02-02] MEDS: buPROPion 100 MG TAB PO SCH ×2 (09:37→20:03)
[2021-02-02] MEDS: TAMSULOSIN 0.4 MG CAP PO SCH (09:37)
[2021-02-02] MEDS: PROPAFENONE 150 MG TAB PO SCH ×2 (09:38→20:03)
--- NOTE | 2021-02-02 13:53 | IPNPDOC ---
Subjective General Date/Time Seen The patient was seen on 02/02/21 at 12:51. Subject Chief Complaint/History The patient is a 70-year-old female admitted with a reason for visit of Microcytic Anemia. SUBJECTIVE: Mrs. Santillan was seen and examined at the bedside this morning. He has trouble with her memory and required prompting to remember who Dr. Conrad is and why he is taking care of her. She is very pleasant otherwise. She has no complaints, has not had any shortness of breath/palpitations recently. She denies any swelling in her legs. No issues reported by ARU staff. OBJECTIVE: PHYSICAL EXAMINATION: VITAL SIGNS: see below GENERAL: alert and oriented, in no apparent distress, pleasant and conversant in full sentences. HEENT: PERRL, EOMI, Oral mucous membranes are moist without lesions. NECK: The patient has no noted JVD. No adenopathy is appreciated. No thyromegaly CHEST/LUNGS: Lungs are clear bilaterally without rhonchi, rales, or wheezes. There is no subcutaneous air appreciated. There is no tenderness to the chest wall. HEART:Regular rate and rhythm. No murmurs, rubs, or gallops are appreciated. Distal pulses are 2+. No carotid bruits appreciated. ABDOMEN: Soft, nontender, and nondistended. Bowel sounds are positive. No organomegaly is appreciated. No masses are appreciated. There are no peritoneal signs. There is no York sign. EXTREMITIES: No peripheral edema. There is no focal long bone tenderness or deformity. SKIN: The patients skin is warm and dry, without rashes or lesions. PSYCHIATRIC: oriented only to person, normal mood/affect NEUROLOGIC: No obvious focal deficits IMAGING: No new imaging LABS: See below ASSESSMENT: This is a 70 YO F with ESRD on HD, HTN who presented to [facility] s/p multiple falls, worsening weakness and confusion now in ARU for rehabilitation. PLAN: 1. ESRD on HD: -Will plan to dialize her today -Labs from 02/01 reviewed, electrolytes WNL 2. Anemia of chronic kidney disease: -Hgb today 10.0, stable. No signs of bleeding -Continue Aranesp with hemodialysis 3. HTN: -BPs around 140s systolic -Continue Coreg as written 4. History of A-fib: -continue Warfarin, Propafenone 5. Secondary hyperparathyroidism of CKD: -Continue Sensipar twice weekly 6. History of diastolic CHF (unk EF, echo not in chart): -Currently euvolemic -Continue with fluid restriction DISPOSITION: Hemodialysis today, will continue to follow while inpatient in ARU Current Medications Current Medications Current Medications Medications (Trade) Dose Ordered Sig/Eileen Route PRN Reason Start Time Stop Time Status Last Admin Dose Admin Acetaminophen (Tylenol Tab) 650 mg Q4HP PRN PO fever/MILD PAIN (PS 1-4) 12/28/20 16:10 01/18/21 21:16 Bupropion HCl (Wellbutrin Xl) 300 mg DAILY PO 12/29/20 09:00 12/29/20 10:05 DC 12/29/20 09:28 Bupropion HCl (Wellbutrin) 50 mg BID PO 01/06/21 21:00 02/02/21 09:37 Bupropion HCl (Wellbutrin) 50 mg BID@1700,2200 PO 01/01/21 17:00 01/01/21 22:01 DC 01/01/21 22:38 Bupropion HCl (Wellbutrin) 50 mg TID PO 01/01/21 09:00 01/01/21 12:18 DC 01/01/21 11:54 Bupropion HCl (Wellbutrin) 50 mg TID PO 01/02/21 09:00 01/06/21 13:54 DC 01/06/21 08:49 Bupropion HCl (Wellbutrin) 75 mg TID PO 12/29/20 16:00 01/01/21 09:30 DC 12/31/20 20:40 Bupropion HCl (Wellbutrin) 75 mg TID PO 12/30/20 16:00 12/29/20 15:39 DC Bupropion HCl (Wellbutrin) 100 mg TID PO 12/30/20 09:00 12/29/20 14:38 DC Carvedilol (COReg) 12.5 mg BID PO 12/28/20 21:00 02/02/21 09:37 Cinacalcet (Sensipar) 30 mg WeFr@0900 PO 01/01/21 09:00 01/31/21 08:59 DC 01/29/21 08:35 Cinacalcet (Sensipar) 30 mg WeFr@0900 PO 02/03/21 09:00 Darbepoetin Raul (Aranesp (Dialysis Use)) 100 mcg Sa@09 IV 01/30/21 09:00 01/30/21 13:39 Diphenhydramine HCl (Benadryl) 50 mg ASDIRECTED PRN IM ANAPHYLAXIS 01/11/21 00:00 01/11/21 23:59 DC Docusate Sodium (Colace) 100 mg BID PO 12/28/20 21:00 02/01/21 20:07 Epinephrine HCl (Adrenalin) 0.3 mg ASDIRECTED PRN IM ANAPHYLAXIS 01/11/21 00:00 01/11/21 23:59 DC Heparin Sodium (Heparin) Please refer to ... ASDIRECTED XX 01/09/21 05:55 01/10/21 05:54 DC Heparin Sodium (Heparin) Please refer to ... ASDIRECTED XX 01/12/21 07:45 01/13/21 07:44 DC Heparin Sodium (Heparin) Please refer to ... ASDIRECTED XX 01/14/21 06:00 01/15/21 05:59 DC Heparin Sodium (Heparin) Please refer to ... ASDIRECTED XX 01/15/21 20:15 01/16/21 20:14 DC Heparin Sodium (Heparin) Please refer to ... ASDIRECTED XX 12/30/20 10:15 12/31/20 10:14 DC Heparin Sodium (Heparin) Please refer to ... ASDIRECTED XX 01/01/21 12:20 01/02/21 12:19 DC Heparin Sodium (Heparin) Please refer to ... ASDIRECTED XX 01/30/21 07:15 01/31/21 07:14 DC Heparin Sodium (Heparin) Please refer to ... ASDIRECTED XX 02/02/21 07:15 02/03/21 07:14 Iron (Venofer) 100 mg HD IV 12/30/20 11:25 01/01/21 11:26 DC 12/30/20 13:11 Iron (Venofer) 100 mg HD IV 01/01/21 13:10 01/23/21 11:49 DC 01/14/21 14:13 Lidocaine HCl (Lidocaine 1% Sdv) 0.5 ml ASDIRECTED PRN SC SEE LABEL COMMENTS 01/09/21 05:55 01/10/21 05:54 DC Lidocaine HCl (Lidocaine 1% Sdv) 0.5 ml ASDIRECTED PRN SC SEE LABEL COMMENTS 01/12/21 07:45 01/13/21 07:44 DC Lidocaine HCl (Lidocaine 1% Sdv) 0.5 ml ASDIRECTED PRN SC SEE LABEL COMMENTS 01/14/21 06:00 01/14/21 23:04 DC Lidocaine HCl (Lidocaine 1% Sdv) 0.5 ml ASDIRECTED PRN SC SEE LABEL COMMENTS 01/15/21 20:15 01/16/21 20:14 DC Lidocaine HCl (Lidocaine 1% Sdv) 0.5 ml ASDIRECTED PRN SC SEE LABEL COMMENTS 12/30/20 10:15 12/31/20 10:14 DC Lidocaine HCl (Lidocaine 1% Sdv) 0.5 ml ASDIRECTED PRN SC SEE LABEL COMMENTS 01/01/21 12:20 01/02/21 12:19 DC Lidocaine HCl (Lidocaine 1% Sdv) 0.5 ml ASDIRECTED PRN SC SEE LABEL COMMENTS 01/30/21 07:15 01/31/21 07:14 DC Lidocaine HCl (Lidocaine 1% Sdv) 0.5 ml ASDIRECTED PRN SC SEE LABEL COMMENTS 02/02/21 07:15 02/03/21 07:14 Megestrol Acetate (Megace Acetate Suspension) 40 mg QID PO 12/29/20 09:49 12/29/20 14:38 DC Megestrol Acetate (Megace) 40 mg QID PO 12/28/20 17:00 12/29/20 09:18 DC 12/28/20 21:14 Megestrol Acetate (Megace) 40 mg QID PO 12/29/20 09:15 12/29/20 09:49 DC Memantine (Namenda) 5 mg DAILY PO 01/11/21 09:00 02/02/21 09:37 Miscellaneous (Unresolved Clarification Entry) SEE LABEL COMMENTS DAILY XX 01/30/21 09:00 01/31/21 14:41 DC Miscellaneous (Unresolved Clarification Entry) SEE LABEL COMMENTS DAILY XX 02/01/21 09:00 Multivitamins (Theragram-M) 1 tab DAILY PO 01/09/21 09:00 01/29/21 08:35 Mupirocin (Bactroban 2% Ointment) 1 dose BID TOP 12/28/20 21:00 01/05/21 16:04 DC 01/05/21 08:59 Olanzapine (ZyPREXA) 2.5 mg Q6HP PRN PO AGITATION 12/29/20 15:00 01/21/21 08:51 DC Pantoprazole Sodium (Protonix) 40 mg DAILY PO 12/29/20 09:00 02/02/21 09:37 Polyethylene Glycol (Miralax) 1 pkt DAILY PRN PO CONSTIPATION 12/28/20 16:10 01/17/21 17:51 Propafenone HCl (Rythmol) 300 mg BID PO 12/28/20 21:00 02/02/21 09:38 Quetiapine Fumarate (SEROquel) 25 mg QHS PO 12/31/20 21:00 02/01/21 20:07 Senna (Senokot) 1 tab QHS PO 12/28/20 21:00 02/01/21 20:07 Sodium Chloride (Nacl 0.9%) 200 ml ASDIRECTED PRN IV SEE LABEL COMMENTS 01/09/21 05:55 01/10/21 05:54 DC Sodium Chloride (Nacl 0.9%) 200 ml ASDIRECTED PRN IV SEE LABEL COMMENTS 12/30/20 10:15 12/31/20 10:14 DC Sodium Chloride (Nacl 0.9%) 200 ml ASDIRECTED PRN IV SEE LABEL COMMENTS 01/01/21 12:20 01/02/21 12:19 DC Sodium Chloride (Nacl 0.9%) 200 ml ASDIRECTED PRN IV SEE LABEL COMMENTS 01/30/21 07:15 01/31/21 07:14 DC Tamsulosin HCl (Flomax) 0.4 mg DAILY PO 12/29/20 09:00 02/02/21 09:37 Warfarin Sodium (Coumadin) 1 mg DAILY@17 PO 01/09/21 17:00 01/20/21 17:41 DC 01/19/21 16:36 Warfarin Sodium (Coumadin) 1 mg DAILY@17 PO 01/09/21 17:00 Cancel Warfarin Sodium (Coumadin) 1 mg DAILY@17 PO 01/21/21 17:00 01/21/21 08:51 DC Warfarin Sodium (Coumadin) 1 mg DAILY@17 PO 12/30/20 17:00 01/03/21 19:09 DC 01/03/21 16:55 Warfarin Sodium (Coumadin) 2 mg DAILY@17 PO 01/04/21 17:00 01/06/21 12:17 DC 01/05/21 16:17 Warfarin Sodium (Coumadin) 2.5 mg DAILY@17 PO 01/09/21 17:00 01/20/21 17:41 DC 01/19/21 16:35 Warfarin Sodium (Coumadin) 2.5 mg DAILY@17 PO 01/21/21 17:00 01/21/21 08:51 DC Warfarin Sodium (Coumadin) 3.5 mg DAILY@17 PO 01/09/21 17:00 01/09/21 17:29 DC Warfarin Sodium (Coumadin) 3.5 mg DAILY@17 PO 01/21/21 17:00 01/20/21 18:04 DC Warfarin Sodium (Coumadin) 4 mg DAILY@17 PO 01/21/21 17:00 02/01/21 18:10 Warfarin Sodium (Coumadin) 5 mg DAILY@17 PO 01/06/21 17:00 01/07/21 07:26 DC 01/06/21 16:21 Warfarin Sodium (Coumadin) 5 mg DAILY@17 PO 01/08/21 17:00 01/09/21 10:38 DC 01/08/21 17:36 Warfarin Sodium (Coumadin) 7.5 mg DAILY@17 PO 12/29/20 17:00 12/30/20 07:58 DC 12/29/20 17:04 Allergies Coded Allergies: Sulfa (Sulfonamide Antibiotics) (Verified Adverse Reaction, Intermediate, upset stomach, 06/27/19) VS,Fishbone, I+O VS, Fishbone, I+O Vital Signs Date Time Temp Pulse Resp B/P (MAP) Pulse Ox O2 Delivery O2 Flow Rate FiO2 02/02/21 05:20 97.6 65 18 142/65 (90) 98 Room Air I&O- Last 24 Hours up to 6 AM 02/02/21 06:00 Intake Total 890 ml Balance 890 ml GME ATTESTATION GME ATTESTATION My faculty preceptor for this patient encounter was physically present during the encounter and was fully available. All aspects of the patient interview, examination, medical decision making process, and medical care plan development were reviewed and approved by the faculty preceptor. The faculty preceptor is aware and concurs with the plan as stated in the body of this note and will attest to such by his/her cosignature. Attending Note Attending Note ESRD on HD HTN Afib Dementia LE Edema HD today with UF goal 1L. Continue rest of medications. DORIS JOHNSON MD Feb 02, 2021 12:52 NHUNG CONRAD MD Feb 02, 2021 21:39
[2021-02-02 14:00] VITALS: BP 138/64
[2021-02-02] MEDS: WARFARIN SOD 4MG TAB PO SCH (17:43)
[2021-02-02 20:00] VITALS: BP 143/65
[2021-02-02] MEDS: QUEtiapine FUMARATE 25 MG TAB PO SCH (20:03)
[2021-02-02] MEDS: SENNA 8.6 MG TAB (SENOKOT) PO SCH (20:03)
[2021-02-02] MEDS ORDERED: ACET1TAB55 PO (20:33)
[2021-02-02] MEDS ORDERED: MEMA1TAB3 PO (20:33)
[2021-02-02] MEDS ORDERED: JANT4TAB PO (20:33)
[2021-02-02] MEDS ORDERED: PROP150T PO (20:33)
[2021-02-02] MEDS ORDERED: PANT40TA29 PO (20:33)
[2021-02-02] MEDS ORDERED: BUPR-69 PO (20:33)
[2021-02-02] MEDS ORDERED: CINA30TA5 PO (20:33)
[2021-02-02] MEDS ORDERED: CARV12.5 PO (20:33)
[2021-02-02] MEDS ORDERED: QUET25TA3 PO (20:33)
[2021-02-02] MEDS ORDERED: VITMTA PO (20:33)
[2021-02-02] MEDS ORDERED: RALO1TAB PO (20:33)
[2021-02-02] MEDS ORDERED: DOK1CAP7 PO (20:33)
[2021-02-02] MEDS ORDERED: SENN18TA PO (20:33)
[2021-02-02] MEDS ORDERED: FLOM0.4C39 PO (20:33)
[2021-02-03 06:00] VITALS: BP 123/59
[2021-02-03 08:10] VITALS: BP 123/59
[2021-02-03] MEDS: CARVedilol 12.5 MG TAB PO SCH (08:10)
[2021-02-03] MEDS: PANTOPRAZOLE 40MG TAB (PROTONIX) PO SCH (08:10)
[2021-02-03] MEDS: MEMANTINE 5MG TABLET (NAMENDA) PO SCH (08:10)
[2021-02-03] MEDS: TAMSULOSIN 0.4 MG CAP PO SCH (08:10)
[2021-02-03] MEDS: buPROPion 100 MG TAB PO SCH (08:10)
[2021-02-03] MEDS: DOCUSATE SODIUM 100MG CAPSULE PO SCH (08:10)
[2021-02-03] MEDS: PROPAFENONE 150 MG TAB PO SCH (08:11)
[2021-02-03] MEDS: MULTIVITAMINS/MINERALS THERAP 1 TAB PO SCH (08:13)
[2021-02-03] MEDS ORDERED: CINACALCET 30 MG TAB (SENSIPAR) PO SCH (09:00)
[2021-02-03] MEDS: REMEDY PHYTOPLEX Z-GUARD PASTE 113GM TUBE (FROM STOREROOM PRODUCT) TOP SCH (09:00)
--- NOTE | 2021-02-03 11:19 | PMRDS ---
NAME: ALANNA CARRILLO [facility] WT ID#: [id number] : [id number] JOB: [id number] JODI: 02/03/2021 ACCT: [id number] DOCTOR: LINA CASTILLO MD PMR DISCHARGE SUMMARY DATE OF ADMISSION: 12/28/2020 DATE OF DISCHARGE: 02/03/2021 CHIEF COMPLAINT/DISCHARGE DIAGNOSIS: Lewy body dementia. HISTORY OF PRESENT ILLNESS: A 70-year-old female with a past medical history of end-stage renal disease, hypertension, hyperlipidemia, atrial fibrillation on warfarin, poor appetite, on and off Megace, who was developing worsening weakness at home with multiple falls and worsening confusion with ongoing neurology workup by Dr. Giles, who presented to [facility] ED on 12/22/2020 with increased frequency of falls. Patient was found to have microcytic anemia, for which she received blood transfusions and CTH was negative for any acute intracranial pathology. She was noted to have shuffling gait with bilateral upper extremity tremors and waxing and waning levels of lucidity, which caused difficulties in ADLs and mobility, for which she was deemed medically appropriate for discharge to ARU. PAST MEDICAL HISTORY: As per HPI. HOSPITAL COURSE: The patient was admitted and enrolled in a comprehensive PT/OT, speech language pathology program. She received 24-hour nursing supervision and weekly team meetings were held to discuss her progress. Patient was taken off of her Megace due to concern for worsening confusion and muscle weakness. Her Wellbutrin was tapered with overall improvements in her bilateral upper extremity tremor. She was seen by neurology, who diagnosed her with Lewy body dementia and she was started on Seroquel at night for her hallucinations, which did eventually improve. She was also started on Namenda for cognitive enhancement and was followed closely by renal for her end-stage renal disease. She made steady gains in therapy and was deemed medically and functionally stable for further rehab at a short term rehab setting. DISCHARGE MEDICATIONS: As per instructions. FUNCTIONAL HISTORY ON DISCHARGE: Patient was standby assist to modified independent for functional transfers. Contact guard assist for ambulation. Thank you for this referral.
[2021-02-03 11:23] LABS: INR 2.05; PROTHROMBIN TIME 23.6 SECONDS (12.5-14.3)
== END 2021-02-03 14:30 | DRG 56 ==
LOC: M PM&R 16:00
PROVIDERS: ADMIT Physical Medicine & Rehabilitation; ATTEND Physical Medicine & Rehabilitation
PROC: 5A1D70Z Performance of Urinary Filtration, Intermittent, Less than 6 Hours Per Day (ICD-10-PCS; principal; 2020-12-28)
DX: G31.83 Neurocognitive disorder with Lewy bodies (principal); N18.6 End stage renal disease; I13.2 Hypertensive heart and chronic kidney disease with heart failure and with stage 5 chronic kidney disease, or end stage renal disease; N25.81 Secondary hyperparathyroidism of renal origin; I50.32 Chronic diastolic (congestive) heart failure; G93.40 Encephalopathy, unspecified; D50.9 Iron deficiency anemia, unspecified; F02.80 Dementia in other diseases classified elsewhere, unspecified severity, without behavioral disturbance, psychotic disturbance, mood disturbance, and anxiety; E78.5 Hyperlipidemia, unspecified; I48.91 Unspecified atrial fibrillation; R29.6 Repeated falls; R26.89 Other abnormalities of gait and mobility; R25.1 Tremor, unspecified; K21.9 Gastro-esophageal reflux disease without esophagitis; R33.9 Retention of urine, unspecified; R41.0 Disorientation, unspecified; M62.81 Muscle weakness (generalized); R44.1 Visual hallucinations; D63.1 Anemia in chronic kidney disease; F39 Unspecified mood [affective] disorder; R53.81 Other malaise; R63.4 Abnormal weight loss; Z74.1 Need for assistance with personal care; Z74.09 Other reduced mobility; Z99.2 Dependence on renal dialysis; Z88.2 Allergy status to sulfonamides; Z79.01 Long term (current) use of anticoagulants; Z79.899 Other long term (current) drug therapy; L89.152 Pressure ulcer of sacral region, stage 2

== ENCOUNTER → 2021-05-05 | Outpatient (REF) | payer MEDICARE, BC ==
[~2021-05-05] MED LIST changes: +BUPR-69 PO; +CINA30TA5 PO; +DOK1CAP7 PO; +FLOM0.4C39 PO; +JANT4TAB PO; +MEMA1TAB3 PO; +MOM30SS2 PO; +OMEP40CA4 PO; -OMEP40CA97 PO; +PROP150T PO; +QUET25TA3 PO; +SENN18TA PO; +VITMTA PO
== END ==
LOC: M LAB REF 17:07
PROVIDERS: ATTEND Family Medicine
DX: R82.90 Unspecified abnormal findings in urine (principal)

== ENCOUNTER → 2021-09-09 | Outpatient (CLI) | payer MEDICARE, BC ==
[~2021-09-09] MED LIST changes: +DOK1CAP4 PO; -DOK1CAP7 PO; +QUET1TAB17 PO; -QUET25TA3 PO
[2021-09-09 11:09] LABS: CHOLESTEROL RISK RATIO 3.91 (<5); FREE T4 1.21 NG/DL (0.76-1.46); THYROID STIMULATING HORMONE 2.23 uIU/ML (0.358-3.740)
[2021-09-09 11:10] LABS: CREATININE, URINE 73.4 MG/DL; MALB URINE SIEMENS 58.4 MG/L; MAU/CREAT RATIO 79.5 MCG/MG (0.0-30.0)
== END ==
LOC: M PLALAB 08:50
PROVIDERS: ATTEND Physician Assistant
DX: E11.22 Type 2 diabetes mellitus with diabetic chronic kidney disease (principal); F41.1 Generalized anxiety disorder

== ENCOUNTER → 2022-01-18 | Outpatient (REF) | payer MEDICARE, BC ==
[~2022-01-18] MED LIST changes: +FEXO-117 PO; -FEXO180T58 PO; +LOSA50TA28 PO; -LOSA50TA88 PO
== END ==
LOC: M SFHCDERM 17:19
PROVIDERS: ATTEND Nurse Practitioner Family
DX: D48.9 Neoplasm of uncertain behavior, unspecified (principal)

== ENCOUNTER → 2022-02-09 | Outpatient (REF) | payer MEDICARE, BC | LOC: M SFHCDERM 14:58 | PROVIDERS: ATTEND Physician Assistant | DX: C44.629 Squamous cell carcinoma of skin of left upper limb, including shoulder (principal) ==

== ENCOUNTER → 2022-02-28 | Outpatient (REF) | payer MEDICARE, BC | LOC: M LAB REF 15:50 | PROVIDERS: ATTEND Surgery | DX: C44.629 Squamous cell carcinoma of skin of left upper limb, including shoulder (principal) ==

== ENCOUNTER → 2022-04-12 | Outpatient (CLI) | payer MEDICARE, BC ==
[2022-04-12 10:13] LABS: BASO # 0.1 10^3/uL (0.0-0.2); BASO % 1.3 % (0.0-1.0); EOS # 0.1 10^3/uL (0.0-0.5); EOS % 0.9 % (0.0-3.0); HEMATOCRIT 37.3 % (36.0-47.0); LYMPH # 1.2 10^3/uL (1.5-5.0); LYMPH % 16.4 % (24.0-44.0); MEAN CORPUSCULAR HGB CONC 32.2 g/dl (32.0-36.5); MEAN CORPUSCULAR VOLUME 99.5 fl (80.0-96.0); MONO # 0.7 10^3/uL (0.0-0.8); MONO % 8.8 % (2.0-8.0); NEUTROPHILS # 5.4 10^3/uL (1.5-8.5); NEUTROPHILS % 72.3 % (36.0-66.0); PLATELET COUNT, AUTOMATED 282 10^3/uL (150-450); RED BLOOD COUNT 3.75 10^6/uL (4.00-5.40); WHITE BLOOD COUNT 7.5 10^3/uL (4.0-10.0)
[2022-04-12 10:49] LABS: ALBUMIN 3.4 GM/DL (3.2-5.2); BILIRUBIN,TOTAL 0.5 MG/DL (0.2-1.0); CALCIUM LEVEL 8.3 MG/DL (8.8-10.2); CHOLESTEROL RISK RATIO 2.32 (<5); CREATININE FOR GFR 5.36 MG/DL (0.55-1.30); FREE T4 1.23 NG/DL (0.76-1.46); GLOMERULAR FILTRATION RATE 8.4 (>39); THYROID STIMULATING HORMONE 2.97 uIU/ML (0.358-3.740); TOTAL PROTEIN 7.4 GM/DL (6.4-8.2)
[2022-04-12 10:57] LABS: HEMOGLOBIN A1c 5.5 %
== END ==
LOC: M PLALAB 08:10
PROVIDERS: ATTEND Family Medicine
DX: E11.22 Type 2 diabetes mellitus with diabetic chronic kidney disease (principal); D63.1 Anemia in chronic kidney disease; N18.9 Chronic kidney disease, unspecified

== ENCOUNTER → 2022-06-02 | Outpatient (REF) | payer MEDICARE, BC ==
[~2022-06-02] MED LIST changes: -MEGE40TA; -MEGE40TA PO; +MEGE40TA3; +MEGE40TA3 PO
== END ==
LOC: M SFHCDERM 17:22
PROVIDERS: ATTEND Nurse Practitioner Family
DX: B07.9 Viral wart, unspecified (principal); L57.0 Actinic keratosis

== ENCOUNTER → 2022-07-19 | Outpatient (CLI) | payer MEDICARE, BC ==
[2022-07-19 11:05] LABS: BASO # 0.1 10^3/uL (0.0-0.2); BASO % 1.4 % (0.0-1.0); EOS # 0.1 10^3/uL (0.0-0.5); EOS % 1.1 % (0.0-3.0); HEMATOCRIT 33.5 % (36.0-47.0); HEMOGLOBIN 10.8 g/dl (12.0-15.5); LYMPH # 1.3 10^3/uL (1.5-5.0); LYMPH % 17.3 % (24.0-44.0); MEAN CORPUSCULAR HEMOGLOBIN 32.8 pg (27.0-33.0); MEAN CORPUSCULAR HGB CONC 32.2 g/dl (32.0-36.5); MEAN CORPUSCULAR VOLUME 101.8 fl (80.0-96.0); MONO # 0.7 10^3/uL (0.0-0.8); MONO % 9.5 % (2.0-8.0); NEUTROPHILS # 5.2 10^3/uL (1.5-8.5); NEUTROPHILS % 70.4 % (36.0-66.0); PLATELET COUNT, AUTOMATED 263 10^3/uL (150-450); RED BLOOD COUNT 3.29 10^6/uL (4.00-5.40); WHITE BLOOD COUNT 7.4 10^3/uL (4.0-10.0)
[2022-07-19 11:26] LABS: ALBUMIN 3.4 GM/DL (3.2-5.2); BILIRUBIN,TOTAL 0.5 MG/DL (0.2-1.0); CALCIUM LEVEL 8.2 MG/DL (8.8-10.2); CREATININE FOR GFR 5.16 MG/DL (0.55-1.30); FREE T4 1.19 NG/DL (0.76-1.46); GLOMERULAR FILTRATION RATE 8.7 (>39); POTASSIUM SERUM 4.6 MEQ/L (3.5-5.1); THYROID STIMULATING HORMONE 2.37 uIU/ML (0.358-3.740)
[2022-07-19 11:29] LABS: HEMOGLOBIN A1c 5.7 %
== END ==
LOC: M PLALAB 07:55
PROVIDERS: ATTEND Nurse Practitioner Adult Health
DX: E11.22 Type 2 diabetes mellitus with diabetic chronic kidney disease (principal); D63.1 Anemia in chronic kidney disease; N18.9 Chronic kidney disease, unspecified

== ENCOUNTER → 2022-08-09 | Outpatient (CLI) | payer MEDICARE, BC | LOC: M WHC 06:42 | PROVIDERS: ATTEND Nurse Practitioner Adult Health | DX: Z12.31 Encounter for screening mammogram for malignant neoplasm of breast (principal) ==

== ENCOUNTER → 2022-09-27 | Outpatient (CLI) | payer MEDICARE, BC | LOC: M WHC 14:08 | PROVIDERS: ATTEND Orthopaedic Surgery | DX: M25.552 Pain in left hip (principal); M85.852 Other specified disorders of bone density and structure, left thigh ==

== ENCOUNTER → 2022-11-14 | Outpatient (REF) | payer MEDICARE, BC | LOC: M SFHCDERM 11:56 | PROVIDERS: ATTEND Nurse Practitioner Family | DX: D48.9 Neoplasm of uncertain behavior, unspecified (principal) ==

== ENCOUNTER → 2023-03-23 | Outpatient (CLI) | payer MEDICARE, BC ==
[~2023-03-23] MED LIST changes: -COZA50TA PO; +LOSA-528 PO
[2023-03-23 14:32] LABS: BASO # 0.1 10^3/uL (0.0-0.2); BASO % 1.1 % (0.0-1.0); EOS # 0.1 10^3/uL (0.0-0.5); EOS % 0.5 % (0.0-3.0); HEMATOCRIT 33.2 % (36.0-47.0); HEMOGLOBIN 10.6 g/dl (12.0-15.5); LYMPH # 1.3 10^3/uL (1.5-5.0); LYMPH % 14.3 % (24.0-44.0); MEAN CORPUSCULAR HGB CONC 31.9 g/dl (32.0-36.5); MEAN CORPUSCULAR VOLUME 103.4 fl (80.0-96.0); MONO # 0.8 10^3/uL (0.0-0.8); MONO % 8.9 % (2.0-8.0); NEUTROPHILS # 6.9 10^3/uL (1.5-8.5); NEUTROPHILS % 74.9 % (36.0-66.0); PLATELET COUNT, AUTOMATED 246 10^3/uL (150-450); RED BLOOD COUNT 3.21 10^6/uL (4.00-5.40); WHITE BLOOD COUNT 9.2 10^3/uL (4.0-10.0)
[2023-03-23 15:01] LABS: FERRITIN 997.9 NG/ML (7.3-270.7); FREE T4 1.29 NG/DL (0.89-1.76); PERCENT SATURATION 23.1 % (13.2-45.0)
[2023-03-23 15:02] LABS: ALBUMIN 3.5 G/DL (3.2-5.2); BILIRUBIN,TOTAL 0.5 MG/DL (0.3-1.2); CALCIUM LEVEL 10.2 MG/DL (8.3-10.6); CREATININE FOR GFR 5.12 MG/DL (0.55-1.30); GLOMERULAR FILTRATION RATE 8.8 (>39); HDL CHOLESTEROL 80.5 MG/DL (>40); LDL CHOLESTEROL 55.5 MG/DL (<100); NON-HDL-C 80.5 MG/DL; POTASSIUM SERUM 4.8 MMOL/L (3.5-5.1); THYROID STIMULATING HORMONE 2.501 uIU/ML (0.55-4.78); TOTAL PROTEIN 6.9 G/DL (5.7-8.2)
[2023-03-23 16:19] LABS: HEMOGLOBIN A1c 5.4 % (4.0-6.0)
== END ==
LOC: M PLALAB 11:05
PROVIDERS: ATTEND Family Medicine
DX: N18.6 End stage renal disease (principal); E11.22 Type 2 diabetes mellitus with diabetic chronic kidney disease; D63.1 Anemia in chronic kidney disease

== ENCOUNTER 2023-07-12 18:52 | Observation (INO) | payer MEDICARE, BC ==
[~2023-07-12] VITALS: Ht 170.2 cm; Wt 72.0 kg
[~2023-07-12 18:52] MED LIST changes: +DICL100G10 TD; -DICL1GEL3 TD; +SENN-111 PO; -SENN18TA PO
[2023-07-12] MEDS ORDERED: ELIQ5TAB PO (19:21)
[2023-07-12] MEDS ORDERED: ZOLO25TA PO (19:22)
[2023-07-12] MEDS ORDERED: PROP60TA14 PO (19:44)
[2023-07-12] MEDS ORDERED: MORPHINE 10 MG/ML 1ML VIAL IM ONE (19:55)
[2023-07-12] MEDS ORDERED: fentaNYL 100 MCG/2 ML INJECTION IV ONE (21:05)
[2023-07-12] MEDS ORDERED: fentaNYL 100 MCG/2 ML INJECTION IM ONE (21:25)
[2023-07-12] MEDS ORDERED: MORPHINE 2 MG/ML 1ML VIAL IV ONE (22:45)
[2023-07-12] MEDS ORDERED: ACETAMINOPHEN TAB 650MG DOSE (2X325MG) PO PRN (22:45)
[2023-07-12] MEDS ORDERED: PERCOCET 5MG/325MG TAB PO PRN ×2 (22:45)
[2023-07-12] MEDS ORDERED: PROC10TA5 PO (23:36)
[2023-07-12] MEDS ORDERED: FLON1SPR NARES (23:36)
[2023-07-12] MEDS ORDERED: AMMO12LO TOP (23:36)
[2023-07-12] MEDS ORDERED: BUPR-69 PO (23:36)
[2023-07-12] MEDS ORDERED: MEMA1TAB3 PO (23:36)
[2023-07-12] MEDS ORDERED: RALO1TAB PO (23:36)
[2023-07-12] MEDS ORDERED: ATOR1TAB19 PO (23:36)
[2023-07-12] MEDS ORDERED: PROP10TA56 PO (23:36)
[2023-07-12] MEDS ORDERED: CINA30TA4 PO (23:36)
[2023-07-12] MEDS ORDERED: HOME MED LIST COMPLETE! XX SCH (23:40)
[2023-07-12] MEDS ORDERED: FLUTICASONE PROP 0.05% NASAL SPRAY 16 GM (FLONASE) NARES PRN (23:55)
[2023-07-12] MEDS ORDERED: PROCHLORPERAZINE 5MG TAB PO PRN (23:55)
[2023-07-13 01:34] LABS: BASO % 0.2 % (0.0-1.0); EOS % 0.1 % (0.0-3.0); HEMATOCRIT 30.2 % (36.0-47.0); HEMOGLOBIN 9.9 g/dl (12.0-15.5); LYMPH # 0.6 10^3/uL (1.5-5.0); LYMPH % 3.3 % (24.0-44.0); MEAN CORPUSCULAR HGB CONC 32.8 g/dl (32.0-36.5); MEAN CORPUSCULAR VOLUME 100.7 fl (80.0-96.0); MONO # 1.2 10^3/uL (0.0-0.8); MONO % 6.4 % (2.0-8.0); NEUTROPHILS # 16.2 10^3/uL (1.5-8.5); NEUTROPHILS % 89.5 % (36.0-66.0); PLATELET COUNT, AUTOMATED 200 10^3/uL (150-450); WHITE BLOOD COUNT 18.1 10^3/uL (4.0-10.0)
[2023-07-13 01:52] LABS: RSV AMPLIFICATION NEGATIVE (NEGATIVE)
[2023-07-13 02:33] LABS: CALCIUM LEVEL 8.3 MG/DL (8.3-10.6); CREATININE FOR GFR 3.99 MG/DL (0.55-1.30); GLOMERULAR FILTRATION RATE 11.7 (>39); POTASSIUM SERUM 4.5 MMOL/L (3.5-5.1)
[2023-07-13 02:51] VITALS: BP 159/96; TEMP 97; O2SAT 90
[2023-07-13 06:38] VITALS: BP 128/51; TEMP 97.2; O2SAT 100
[2023-07-13] MEDS: CARVedilol 12.5 MG TAB PO SCH ×2 (08:22→20:35)
[2023-07-13] MEDS: PROPAFENONE 150 MG TAB PO SCH ×2 (08:22→20:34)
[2023-07-13] MEDS: buPROPion 100 MG TAB PO SCH (08:23)
[2023-07-13] MEDS: MEMANTINE 5MG TABLET (NAMENDA) PO SCH (08:23)
[2023-07-13] MEDS: PROPRANOLOL 10 MG TAB PO SCH ×3 (08:28→20:35)
[2023-07-13] MEDS: APIXABAN 5 MG TAB (ELIQUIS) PO SCH ×2 (08:28→20:35)
[2023-07-13] MEDS: PANTOPRAZOLE 40MG TAB (PROTONIX) PO SCH (08:29)
[2023-07-13] MEDS: LACTIC ACID 12% LOTION 225 GM BTL TOP SCH (08:29)
[2023-07-13 08:35] LABS: HEMATOCRIT 30.8 % (36.0-47.0); HEMOGLOBIN 9.9 g/dl (12.0-15.5); MEAN CORPUSCULAR HEMOGLOBIN 32.4 pg (27.0-33.0); MEAN CORPUSCULAR HGB CONC 32.1 g/dl (32.0-36.5); MEAN CORPUSCULAR VOLUME 100.7 fl (80.0-96.0); PLATELET COUNT, AUTOMATED 222 10^3/uL (150-450); RED BLOOD COUNT 3.06 10^6/uL (4.00-5.40); WHITE BLOOD COUNT 14.4 10^3/uL (4.0-10.0)
[2023-07-13] MEDS ORDERED: CALCITRIOL 0.25 MCG CAP (S0169) PO SCH (09:00)
[2023-07-13] MEDS: ACETAMINOPHEN 325 MG TAB PO SCH ×3 (09:00→20:36)
[2023-07-13 09:02] LABS: CALCIUM LEVEL 8.3 MG/DL (8.3-10.6); CREATININE FOR GFR 4.61 MG/DL (0.55-1.30); GLOMERULAR FILTRATION RATE 9.9 (>39); MAGNESIUM LEVEL 1.6 MG/DL (1.8-2.4); POTASSIUM SERUM 4.7 MMOL/L (3.5-5.1)
[2023-07-13] MEDS ORDERED: ANEXSIA, NORCO 7.5MG/325MG TABLET(HYDROCODONE/APAP) PO PRN (09:05)
[2023-07-13] MEDS ORDERED: NORCO, ANEXSIA 5/325MG TABLET (HYDROcodone/ACETAMINOPHEN) PO PRN (09:05)
[2023-07-13] MEDS ORDERED: ONDANSETRON 4MG 2ML VIAL IV ONE (09:30)
[2023-07-13] MEDS: ACETAMINOPH W/CODEINE #3 TAB UD PO SCH ×3 (09:38→20:37)
[2023-07-13] MEDS ORDERED: ONDANSETRON 4MG ORAL DISINTEGRATING TAB SL PRN (13:35)
[2023-07-13 14:00] VITALS: BP 121/54; TEMP 97.9; O2SAT 96
[2023-07-13] MEDS ORDERED: LIDOCAINE 5% (LIDODERM) PATCH TD ONE (14:00)
[2023-07-13 19:53] VITALS: BP 120/55; TEMP 97; O2SAT 98
[2023-07-13] MEDS ORDERED: ATORVASTATIN 10 MG TAB PO SCH (21:00)
[2023-07-13] MEDS ORDERED: SERTRALINE HCL 25 MG TABLET PO SCH (21:00)
[2023-07-14 06:16] VITALS: BP 103/59; TEMP 97.9; O2SAT 98
[2023-07-14] MEDS: MEMANTINE 5MG TABLET (NAMENDA) PO SCH (06:38)
[2023-07-14] MEDS: ACETAMINOPH W/CODEINE #3 TAB UD PO SCH (06:38)
[2023-07-14] MEDS: CARVedilol 12.5 MG TAB PO SCH (06:39)
[2023-07-14] MEDS: ACETAMINOPHEN 325 MG TAB PO SCH (06:39)
[2023-07-14] MEDS: APIXABAN 5 MG TAB (ELIQUIS) PO SCH (06:39)
[2023-07-14] MEDS: LACTIC ACID 12% LOTION 225 GM BTL TOP SCH (06:40)
[2023-07-14] MEDS ORDERED: HEPARIN 1,000UNITS/ML 10ML VIAL (FOR RADIOLOGY & DIALYSIS ONLY) XX SCH (06:40)
[2023-07-14] MEDS ORDERED: SODIUM CHLORIDE 0.9% 1000ML IV PRN (06:40)
[2023-07-14] MEDS: buPROPion 100 MG TAB PO SCH (06:40)
[2023-07-14] MEDS ORDERED: LIDOCAINE 1% SDV 5ML VIAL SC PRN (06:40)
[2023-07-14] MEDS ORDERED: HEPARIN 1,000UNITS/ML 10ML VIAL (FOR RADIOLOGY & DIALYSIS ONLY) IV PRN (06:40)
[2023-07-14] MEDS: PROPAFENONE 150 MG TAB PO SCH (06:40)
[2023-07-14] MEDS: PANTOPRAZOLE 40MG TAB (PROTONIX) PO SCH (06:41)
[2023-07-14 06:46] VITALS: BP 103/59
[2023-07-14] MEDS: PROPRANOLOL 10 MG TAB PO SCH (06:46)
[2023-07-14] MEDS ORDERED: CINACALCET 30 MG TAB (SENSIPAR) PO SCH (09:00)
[2023-07-14 14:00] VITALS: BP 118/62; TEMP 97.9; O2SAT 96
[2023-07-14] MEDS ORDERED: CALC1CAP31 PO (14:12)
[2023-07-14] MEDS ORDERED: HYDR-3715 PO (14:12)
[2023-07-14] MEDS ORDERED: ACET32TAB PO (14:12)
[2023-07-14] MEDS ORDERED: ACET-716 PO (14:12)
== END 2023-07-14 16:10 | disposition other institution (70) ==
LOC: M ED 18:52 → EDBD 18:52 → M ED INP 22:45 → INTOOBSV 22:45 → ENRESERV 07-13 01:25 → M MS5PR 07-13 02:50
PROVIDERS: ADMIT Internal Medicine; ATTEND Internal Medicine Nephrology
DX: S42.112A Displaced fracture of body of scapula, left shoulder, initial encounter for closed fracture (principal); W10.8XXA Fall (on) (from) other stairs and steps, initial encounter; Y92.098 Other place in other non-institutional residence as the place of occurrence of the external cause; Y93.01 Activity, walking, marching and hiking; N18.6 End stage renal disease; Z99.2 Dependence on renal dialysis; I48.91 Unspecified atrial fibrillation; Z98.890 Other specified postprocedural states; R26.81 Unsteadiness on feet; I67.82 Cerebral ischemia; G31.1 Senile degeneration of brain, not elsewhere classified; E78.5 Hyperlipidemia, unspecified; F41.9 Anxiety disorder, unspecified; F32.A Depression, unspecified; K21.9 Gastro-esophageal reflux disease without esophagitis; D63.1 Anemia in chronic kidney disease; N25.81 Secondary hyperparathyroidism of renal origin; Z88.2 Allergy status to sulfonamides; Z79.899 Other long term (current) drug therapy; Z79.01 Long term (current) use of anticoagulants
CPT/HCPCS: 70450; 71045; 72125; 73030; 73521; 96372; 96374; 96375; 99285; G0378; J3010

== ENCOUNTER 2023-07-14 14:22 | Inpatient (IN) | payer MEDICARE, BC ==
[~2023-07-14] VITALS: Ht 170.2 cm; Wt 74.2 kg
[~2023-07-14 14:22] MED LIST changes: +ACET-716 PO; +ACET32TAB PO; +AMMO12LO TOP; +CALC1CAP31 PO; +CINA30TA4 PO; +ELIQ5TAB PO; +FLON1SPR NARES; +PROC10TA5 PO; +PROP10TA56 PO; +PROP60TA14 PO; +ZOLO25TA PO
[2023-07-14] MEDS ORDERED: ONDANSETRON 4MG TAB PO PRN (15:15)
[2023-07-14] MEDS ORDERED: SENNA 8.6 MG TAB (SENOKOT) PO PRN (15:15)
[2023-07-14] MEDS ORDERED: FLUTICASONE PROP 0.05% NASAL SPRAY 16 GM (FLONASE) NARES PRN (15:15)
[2023-07-14 16:20] VITALS: BP 132/51; TEMP 98.1; O2SAT 91
[2023-07-14] MEDS ORDERED: PILL CUTTER 1 EACH XX PRN (16:45)
[2023-07-14] MEDS: ACETAMINOPHEN 500 MG TAB PO SCH ×2 (17:45→21:57)
[2023-07-14] MEDS: ACETAMINOPH W/CODEINE #3 TAB UD PO SCH ×2 (17:47→21:55)
[2023-07-14] MEDS: PROPRANOLOL 10 MG TAB PO SCH ×2 (17:48→21:56)
[2023-07-14 20:00] VITALS: BP 115/73; TEMP 97.5; O2SAT 93
[2023-07-14] MEDS: PROPAFENONE 150 MG TAB PO SCH (21:51)
[2023-07-14] MEDS: buPROPion 100 MG TAB PO SCH (21:54)
[2023-07-14] MEDS: APIXABAN 5 MG TAB (ELIQUIS) PO SCH (21:54)
[2023-07-14] MEDS: CYCLOBENZAPRINE 5MG TABLET PO SCH (21:55)
[2023-07-14] MEDS: ATORVASTATIN 10 MG TAB PO SCH (21:57)
[2023-07-14] MEDS: SERTRALINE HCL 25 MG TABLET PO SCH (21:57)
[2023-07-14] MEDS: CARVedilol 12.5 MG TAB PO SCH (21:57)
[2023-07-15] MEDS: CYCLOBENZAPRINE 5MG TABLET PO SCH ×5 (05:22→22:31)
[2023-07-15 06:00] VITALS: BP 126/65; TEMP 96.5; O2SAT 99
[2023-07-15 07:48] LABS: BASO # 0.1 10^3/uL (0.0-0.2); BASO % 0.8 % (0.0-1.0); EOS % 0.3 % (0.0-3.0); HEMATOCRIT 27.2 % (36.0-47.0); HEMOGLOBIN 9.1 g/dl (12.0-15.5); LYMPH # 0.9 10^3/uL (1.5-5.0); LYMPH % 7.1 % (24.0-44.0); MEAN CORPUSCULAR HEMOGLOBIN 33.2 pg (27.0-33.0); MEAN CORPUSCULAR HGB CONC 33.5 g/dl (32.0-36.5); MEAN CORPUSCULAR VOLUME 99.3 fl (80.0-96.0); MONO # 0.9 10^3/uL (0.0-0.8); MONO % 6.5 % (2.0-8.0); NEUTROPHILS # 11.1 10^3/uL (1.5-8.5); NEUTROPHILS % 84.7 % (36.0-66.0); PLATELET COUNT, AUTOMATED 190 10^3/uL (150-450); RED BLOOD COUNT 2.74 10^6/uL (4.00-5.40); WHITE BLOOD COUNT 13.2 10^3/uL (4.0-10.0)
[2023-07-15] MEDS: CALCITRIOL 0.25 MCG CAP (S0169) PO SCH (07:56)
[2023-07-15] MEDS: buPROPion 100 MG TAB PO SCH ×2 (07:56→22:19)
[2023-07-15] MEDS: ACETAMINOPH W/CODEINE #3 TAB UD PO SCH ×3 (07:56→22:18)
[2023-07-15] MEDS: ACETAMINOPHEN 500 MG TAB PO SCH ×3 (07:56→22:17)
[2023-07-15] MEDS: CARVedilol 12.5 MG TAB PO SCH ×2 (07:57→22:19)
[2023-07-15] MEDS: PANTOPRAZOLE 40MG TAB (PROTONIX) PO SCH (07:57)
[2023-07-15] MEDS: PROPRANOLOL 10 MG TAB PO SCH ×5 (07:57→22:33)
[2023-07-15] MEDS: PROPAFENONE 150 MG TAB PO SCH ×2 (07:57→22:16)
[2023-07-15] MEDS: MEMANTINE 5MG TABLET (NAMENDA) PO SCH (07:57)
[2023-07-15] MEDS: APIXABAN 5 MG TAB (ELIQUIS) PO SCH ×2 (07:57→22:16)
[2023-07-15] MEDS: LACTIC ACID 12% LOTION 225 GM BTL TOP SCH (07:58)
[2023-07-15] MEDS: LIDOCAINE 5% (LIDODERM) PATCH TD SCH (07:58)
[2023-07-15 14:00] VITALS: BP 117/65; TEMP 97.2; O2SAT 94
[2023-07-15 20:00] VITALS: BP 117/57; TEMP 97.2; O2SAT 96
[2023-07-15] MEDS: ATORVASTATIN 10 MG TAB PO SCH ×3 (21:00→22:29)
[2023-07-15] MEDS: SERTRALINE HCL 25 MG TABLET PO SCH (22:17)
[2023-07-16] MEDS: CYCLOBENZAPRINE 5MG TABLET PO SCH ×3 (05:49→20:53)
[2023-07-16 06:00] VITALS: BP 129/67; TEMP 97.1; O2SAT 95
[2023-07-16] MEDS: buPROPion 100 MG TAB PO SCH ×2 (08:23→20:46)
[2023-07-16] MEDS: MEMANTINE 5MG TABLET (NAMENDA) PO SCH (08:24)
[2023-07-16] MEDS: PROPAFENONE 150 MG TAB PO SCH ×2 (08:24→20:46)
[2023-07-16] MEDS: ACETAMINOPHEN 500 MG TAB PO SCH ×3 (08:24→20:46)
[2023-07-16] MEDS: LIDOCAINE 5% (LIDODERM) PATCH TD SCH (08:25)
[2023-07-16] MEDS: APIXABAN 5 MG TAB (ELIQUIS) PO SCH ×2 (08:25→20:47)
[2023-07-16] MEDS: ACETAMINOPH W/CODEINE #3 TAB UD PO SCH ×3 (08:25→20:46)
[2023-07-16] MEDS: CARVedilol 12.5 MG TAB PO SCH ×2 (08:26→20:47)
[2023-07-16] MEDS: PANTOPRAZOLE 40MG TAB (PROTONIX) PO SCH (08:27)
[2023-07-16] MEDS: LACTIC ACID 12% LOTION 225 GM BTL TOP SCH (08:27)
[2023-07-16 14:00] VITALS: BP 115/58; TEMP 97; O2SAT 96
[2023-07-16] MEDS: PROPRANOLOL 10 MG TAB PO SCH ×2 (17:07→20:47)
[2023-07-16 19:24] VITALS: BP 113/56; TEMP 98.2; O2SAT 96
[2023-07-16] MEDS: SERTRALINE HCL 25 MG TABLET PO SCH (20:46)
[2023-07-16] MEDS: ATORVASTATIN 10 MG TAB PO SCH (20:47)
[2023-07-17] MEDS: CYCLOBENZAPRINE 5MG TABLET PO SCH (05:08)
[2023-07-17 05:11] VITALS: BP 120/57; TEMP 97; O2SAT 94
[2023-07-17] MEDS ORDERED: SODIUM CHLORIDE 0.9% 1000ML IV PRN (06:00)
[2023-07-17 06:37] LABS: CALCIUM LEVEL 7.4 MG/DL (8.3-10.6); CREATININE FOR GFR 7.63 MG/DL (0.55-1.30); GLOMERULAR FILTRATION RATE 5.5 (>39); POTASSIUM SERUM 4.7 MMOL/L (3.5-5.1)
[2023-07-17] MEDS: MEMANTINE 5MG TABLET (NAMENDA) PO SCH (07:42)
[2023-07-17] MEDS: CALCITRIOL 0.25 MCG CAP (S0169) PO SCH (07:42)
[2023-07-17] MEDS: APIXABAN 5 MG TAB (ELIQUIS) PO SCH ×2 (07:42→20:19)
[2023-07-17] MEDS: CARVedilol 12.5 MG TAB PO SCH ×2 (07:43→20:20)
[2023-07-17] MEDS: ACETAMINOPH W/CODEINE #3 TAB UD PO SCH (07:43)
[2023-07-17] MEDS: PANTOPRAZOLE 40MG TAB (PROTONIX) PO SCH (07:43)
[2023-07-17] MEDS: PROPAFENONE 150 MG TAB PO SCH ×2 (07:44→20:21)
[2023-07-17] MEDS: buPROPion 100 MG TAB PO SCH ×2 (07:44→20:21)
[2023-07-17] MEDS: ACETAMINOPHEN 500 MG TAB PO SCH ×3 (07:45→20:21)
[2023-07-17] MEDS: LIDOCAINE 5% (LIDODERM) PATCH TD SCH (07:47)
[2023-07-17] MEDS: CINACALCET 30 MG TAB (SENSIPAR) PO SCH (07:49)
[2023-07-17] MEDS: PROPRANOLOL 10 MG TAB PO SCH ×3 (07:49→20:20)
[2023-07-17] MEDS: LACTIC ACID 12% LOTION 225 GM BTL TOP SCH (07:49)
[2023-07-17] MEDS: oxyCODONE 5MG TAB PO PRN (09:55)
[2023-07-17] MEDS: DARBEPOETIN 100MCG/0.5ML *DIALYSIS* SYRINGE IV SCH (14:25)
[2023-07-17 16:00] VITALS: BP 138/83; TEMP 97; O2SAT 97
[2023-07-17] MEDS: ACETAMINOPH W/CODEINE #3 TAB UD PO PRN (17:18)
[2023-07-17 20:00] VITALS: BP 122/60; TEMP 98.1; O2SAT 94
[2023-07-17] MEDS: SERTRALINE HCL 25 MG TABLET PO SCH (20:19)
[2023-07-17] MEDS: CYCLOBENZAPRINE 5MG TABLET PO PRN (20:20)
[2023-07-17] MEDS: ATORVASTATIN 10 MG TAB PO SCH (20:20)
[2023-07-18 06:01] VITALS: BP 121/66; TEMP 97.2; O2SAT 95
[2023-07-18 06:23] LABS: BASO # 0.1 10^3/uL (0.0-0.2); BASO % 0.8 % (0.0-1.0); EOS # 0.2 10^3/uL (0.0-0.5); EOS % 1.5 % (0.0-3.0); HEMATOCRIT 24.2 % (36.0-47.0); HEMOGLOBIN 8.1 g/dl (12.0-15.5); LYMPH # 0.8 10^3/uL (1.5-5.0); LYMPH % 8.2 % (24.0-44.0); MEAN CORPUSCULAR HEMOGLOBIN 33.2 pg (27.0-33.0); MEAN CORPUSCULAR HGB CONC 33.5 g/dl (32.0-36.5); MEAN CORPUSCULAR VOLUME 99.2 fl (80.0-96.0); NEUTROPHILS # 7.9 10^3/uL (1.5-8.5); NEUTROPHILS % 78.4 % (36.0-66.0); PLATELET COUNT, AUTOMATED 268 10^3/uL (150-450); RED BLOOD COUNT 2.44 10^6/uL (4.00-5.40); WHITE BLOOD COUNT 10.1 10^3/uL (4.0-10.0)
[2023-07-18 06:52] LABS: CALCIUM LEVEL 7.2 MG/DL (8.3-10.6); CREATININE FOR GFR 4.3 MG/DL (0.55-1.30); GLOMERULAR FILTRATION RATE 10.7 (>39); POTASSIUM SERUM 3.9 MMOL/L (3.5-5.1)
[2023-07-18] MEDS: PROPAFENONE 150 MG TAB PO SCH ×2 (07:44→21:28)
[2023-07-18] MEDS: APIXABAN 5 MG TAB (ELIQUIS) PO SCH ×2 (07:45→21:26)
[2023-07-18] MEDS: buPROPion 100 MG TAB PO SCH ×2 (07:45→21:28)
[2023-07-18] MEDS: MEMANTINE 5MG TABLET (NAMENDA) PO SCH (07:46)
[2023-07-18] MEDS: CARVedilol 12.5 MG TAB PO SCH ×2 (07:46→21:29)
[2023-07-18] MEDS: PROPRANOLOL 10 MG TAB PO SCH ×3 (07:46→21:27)
[2023-07-18] MEDS: PANTOPRAZOLE 40MG TAB (PROTONIX) PO SCH (07:46)
[2023-07-18] MEDS: ACETAMINOPH W/CODEINE #3 TAB UD PO PRN ×2 (07:47→23:33)
[2023-07-18] MEDS: LACTIC ACID 12% LOTION 225 GM BTL TOP SCH (07:48)
[2023-07-18] MEDS: ACETAMINOPHEN 500 MG TAB PO SCH ×3 (07:48→21:28)
[2023-07-18] MEDS: LIDOCAINE 5% (LIDODERM) PATCH TD SCH (07:48)
[2023-07-18] MEDS: CYCLOBENZAPRINE 5MG TABLET PO PRN (10:11)
[2023-07-18] MEDS ORDERED: BISACODYL 10MG SUPP PR PRN (13:55)
[2023-07-18 14:00] VITALS: BP 122/67; TEMP 98.8; O2SAT 100
[2023-07-18] MEDS: oxyCODONE 5MG TAB PO PRN (14:04)
[2023-07-18] MEDS ORDERED: SENNA 8.6 MG TAB (SENOKOT) PO SCH (16:05)
[2023-07-18] MEDS: ONDANSETRON 4MG ORAL DISINTEGRATING TAB PO PRN (18:48)
[2023-07-18 19:48] VITALS: BP 121/56; TEMP 98.2; O2SAT 96
[2023-07-18] MEDS: ATORVASTATIN 10 MG TAB PO SCH (21:27)
[2023-07-18] MEDS: SERTRALINE HCL 25 MG TABLET PO SCH (21:27)
[2023-07-18] MEDS: SENNA 8.6 MG TAB (SENOKOT) PO SCH (21:27)
[2023-07-19 05:38] VITALS: BP 116/57; TEMP 98.8; O2SAT 97
[2023-07-19] MEDS ORDERED: SODIUM CHLORIDE 0.9% 1000ML IV PRN (06:00)
[2023-07-19] MEDS: LACTIC ACID 12% LOTION 225 GM BTL TOP SCH (09:00)
[2023-07-19] MEDS: LIDOCAINE 5% (LIDODERM) PATCH TD SCH (09:08)
[2023-07-19] MEDS: PROPAFENONE 150 MG TAB PO SCH ×2 (09:08→22:44)
[2023-07-19] MEDS: buPROPion 100 MG TAB PO SCH ×2 (09:09→22:44)
[2023-07-19] MEDS: CARVedilol 12.5 MG TAB PO SCH ×2 (09:09→22:43)
[2023-07-19] MEDS: CALCITRIOL 0.25 MCG CAP (S0169) PO SCH (09:09)
[2023-07-19] MEDS: CINACALCET 30 MG TAB (SENSIPAR) PO SCH (09:09)
[2023-07-19] MEDS: PANTOPRAZOLE 40MG TAB (PROTONIX) PO SCH (09:10)
[2023-07-19] MEDS: PROPRANOLOL 10 MG TAB PO SCH ×3 (09:10→22:43)
[2023-07-19] MEDS: ACETAMINOPHEN 500 MG TAB PO SCH ×3 (09:10→21:00)
[2023-07-19] MEDS: MEMANTINE 5MG TABLET (NAMENDA) PO SCH (09:10)
[2023-07-19] MEDS: APIXABAN 5 MG TAB (ELIQUIS) PO SCH ×2 (09:10→22:46)
[2023-07-19] MEDS: ONDANSETRON 4MG ORAL DISINTEGRATING TAB PO PRN (09:54)
[2023-07-19] MEDS ORDERED: LACTULOSE 20GM/30ML SYRUP UDC PO ONE (13:00)
[2023-07-19 15:51] VITALS: BP 142/63; TEMP 97.1; O2SAT 90
[2023-07-19 20:00] VITALS: BP 95/50; TEMP 97.5; O2SAT 97
[2023-07-19] MEDS: SENNA 8.6 MG TAB (SENOKOT) PO SCH (21:00)
[2023-07-19 21:07] VITALS: BP 112/58
[2023-07-19] MEDS: SERTRALINE HCL 25 MG TABLET PO SCH (22:46)
[2023-07-19] MEDS: ATORVASTATIN 10 MG TAB PO SCH (22:46)
[2023-07-20 05:36] LABS: HEMATOCRIT 23.6 % (36.0-47.0); HEMOGLOBIN 7.9 g/dl (12.0-15.5); MEAN CORPUSCULAR HEMOGLOBIN 33.1 pg (27.0-33.0); MEAN CORPUSCULAR HGB CONC 33.5 g/dl (32.0-36.5); MEAN CORPUSCULAR VOLUME 98.7 fl (80.0-96.0); PLATELET COUNT, AUTOMATED 334 10^3/uL (150-450); RED BLOOD COUNT 2.39 10^6/uL (4.00-5.40); WHITE BLOOD COUNT 10.7 10^3/uL (4.0-10.0)
[2023-07-20 06:00] VITALS: BP 123/61; TEMP 98.1; O2SAT 96
[2023-07-20 06:00] LABS: CALCIUM LEVEL 7.4 MG/DL (8.3-10.6); CREATININE FOR GFR 3.64 MG/DL (0.55-1.30); POTASSIUM SERUM 3.6 MMOL/L (3.5-5.1)
[2023-07-20] MEDS: PANTOPRAZOLE 40MG TAB (PROTONIX) PO SCH (08:32)
[2023-07-20] MEDS: PROPAFENONE 150 MG TAB PO SCH ×2 (08:32→20:30)
[2023-07-20] MEDS: MEMANTINE 5MG TABLET (NAMENDA) PO SCH (08:32)
[2023-07-20] MEDS: buPROPion 100 MG TAB PO SCH ×2 (08:32→20:26)
[2023-07-20] MEDS: APIXABAN 5 MG TAB (ELIQUIS) PO SCH ×2 (08:32→20:29)
[2023-07-20] MEDS: PROPRANOLOL 10 MG TAB PO SCH ×3 (08:33→20:29)
[2023-07-20] MEDS: CARVedilol 12.5 MG TAB PO SCH ×2 (08:33→20:28)
[2023-07-20] MEDS: ACETAMINOPHEN 500 MG TAB PO SCH ×4 (08:33→20:33)
[2023-07-20] MEDS: LIDOCAINE 5% (LIDODERM) PATCH TD SCH (08:34)
[2023-07-20] MEDS: CYCLOBENZAPRINE 5MG TABLET PO PRN (08:41)
[2023-07-20] MEDS: ACETAMINOPH W/CODEINE #3 TAB UD PO PRN ×2 (08:46→20:33)
[2023-07-20] MEDS: LACTIC ACID 12% LOTION 225 GM BTL TOP SCH (09:00)
[2023-07-20 13:43] VITALS: BP 123/58; TEMP 97.6; O2SAT 99
[2023-07-20] MEDS: BISACODYL 10MG SUPP PR PRN (18:37)
[2023-07-20 20:00] VITALS: BP 122/61; TEMP 97.4; O2SAT 98
[2023-07-20] MEDS: ATORVASTATIN 10 MG TAB PO SCH (20:28)
[2023-07-20] MEDS: SENNA 8.6 MG TAB (SENOKOT) PO SCH (20:28)
[2023-07-20] MEDS: SERTRALINE HCL 25 MG TABLET PO SCH (20:29)
[2023-07-20] MEDS: oxyCODONE 5MG TAB PO PRN (21:38)
[2023-07-21 06:00] VITALS: BP 111/56; TEMP 96.8; O2SAT 98
[2023-07-21] MEDS ORDERED: SODIUM CHLORIDE 0.9% 1000ML IV PRN (06:00)
[2023-07-21] MEDS ORDERED: HEPARIN 1,000UNITS/ML 10ML VIAL (FOR RADIOLOGY & DIALYSIS ONLY) XX SCH (06:00)
[2023-07-21] MEDS: CALCITRIOL 0.25 MCG CAP (S0169) PO SCH (08:37)
[2023-07-21] MEDS: CINACALCET 30 MG TAB (SENSIPAR) PO SCH (08:37)
[2023-07-21] MEDS: PANTOPRAZOLE 40MG TAB (PROTONIX) PO SCH (08:37)
[2023-07-21] MEDS: CYCLOBENZAPRINE 5MG TABLET PO PRN (08:38)
[2023-07-21] MEDS: PROPRANOLOL 10 MG TAB PO SCH ×3 (08:38→21:03)
[2023-07-21] MEDS: PROPAFENONE 150 MG TAB PO SCH ×2 (08:38→21:03)
[2023-07-21] MEDS: MEMANTINE 5MG TABLET (NAMENDA) PO SCH (08:39)
[2023-07-21] MEDS: buPROPion 100 MG TAB PO SCH ×2 (08:39→21:02)
[2023-07-21] MEDS: CARVedilol 12.5 MG TAB PO SCH ×2 (08:39→21:02)
[2023-07-21] MEDS: APIXABAN 5 MG TAB (ELIQUIS) PO SCH ×2 (08:39→21:03)
[2023-07-21] MEDS: ACETAMINOPHEN 500 MG TAB PO SCH ×3 (08:40→21:00)
[2023-07-21] MEDS: ACETAMINOPH W/CODEINE #3 TAB UD PO PRN ×2 (08:42→21:03)
[2023-07-21] MEDS: LIDOCAINE 5% (LIDODERM) PATCH TD SCH (09:00)
[2023-07-21] MEDS: LACTIC ACID 12% LOTION 225 GM BTL TOP SCH (09:00)
[2023-07-21 11:04] VITALS: O2SAT 98
[2023-07-21 20:02] VITALS: BP 131/60; TEMP 97.7; O2SAT 97
[2023-07-21] MEDS: SERTRALINE HCL 25 MG TABLET PO SCH (21:02)
[2023-07-21] MEDS: ATORVASTATIN 10 MG TAB PO SCH (21:02)
[2023-07-21] MEDS: SENNA 8.6 MG TAB (SENOKOT) PO SCH (21:03)
[2023-07-22 06:02] VITALS: BP 146/72; TEMP 96.5; O2SAT 98
[2023-07-22] MEDS: PANTOPRAZOLE 40MG TAB (PROTONIX) PO SCH (08:24)
[2023-07-22] MEDS: APIXABAN 5 MG TAB (ELIQUIS) PO SCH ×2 (08:24→20:26)
[2023-07-22] MEDS: MEMANTINE 5MG TABLET (NAMENDA) PO SCH (08:24)
[2023-07-22] MEDS: ACETAMINOPHEN 500 MG TAB PO SCH ×3 (08:24→20:26)
[2023-07-22] MEDS: CARVedilol 12.5 MG TAB PO SCH ×2 (08:25→20:26)
[2023-07-22] MEDS: PROPAFENONE 150 MG TAB PO SCH ×2 (08:25→20:25)
[2023-07-22] MEDS: LIDOCAINE 5% (LIDODERM) PATCH TD SCH (08:26)
[2023-07-22] MEDS: LACTIC ACID 12% LOTION 225 GM BTL TOP SCH (08:26)
[2023-07-22] MEDS: PROPRANOLOL 10 MG TAB PO SCH ×3 (08:26→20:28)
[2023-07-22 08:30] VITALS: BP 115/55
[2023-07-22] MEDS: buPROPion 100 MG TAB PO SCH ×2 (11:14→20:25)
[2023-07-22 14:00] VITALS: BP 107/55; TEMP 97.5; O2SAT 100
[2023-07-22] MEDS: ACETAMINOPH W/CODEINE #3 TAB UD PO PRN (17:34)
[2023-07-22 20:00] VITALS: BP 142/62; TEMP 97.5; O2SAT 98
[2023-07-22] MEDS: SENNA 8.6 MG TAB (SENOKOT) PO SCH (20:25)
[2023-07-22] MEDS: ATORVASTATIN 10 MG TAB PO SCH (20:25)
[2023-07-22] MEDS: SERTRALINE HCL 25 MG TABLET PO SCH (20:25)
[2023-07-23 06:06] VITALS: BP 133/84; TEMP 97.3; O2SAT 97
[2023-07-23 07:21] LABS: HEMATOCRIT 24.6 % (36.0-47.0); HEMOGLOBIN 7.9 g/dl (12.0-15.5); MEAN CORPUSCULAR HGB CONC 32.1 g/dl (32.0-36.5); MEAN CORPUSCULAR VOLUME 99.6 fl (80.0-96.0); PLATELET COUNT, AUTOMATED 437 10^3/uL (150-450); RED BLOOD COUNT 2.47 10^6/uL (4.00-5.40); WHITE BLOOD COUNT 9.4 10^3/uL (4.0-10.0)
[2023-07-23] MEDS: PANTOPRAZOLE 40MG TAB (PROTONIX) PO SCH (07:38)
[2023-07-23] MEDS: ACETAMINOPHEN 500 MG TAB PO SCH ×3 (07:39→20:09)
[2023-07-23] MEDS: PROPAFENONE 150 MG TAB PO SCH ×2 (07:39→20:09)
[2023-07-23] MEDS: CARVedilol 12.5 MG TAB PO SCH ×2 (07:39→20:09)
[2023-07-23] MEDS: APIXABAN 5 MG TAB (ELIQUIS) PO SCH ×2 (07:39→20:08)
[2023-07-23] MEDS: LIDOCAINE 5% (LIDODERM) PATCH TD SCH (07:40)
[2023-07-23] MEDS: PROPRANOLOL 10 MG TAB PO SCH ×3 (07:40→20:09)
[2023-07-23] MEDS: LACTIC ACID 12% LOTION 225 GM BTL TOP SCH (07:40)
[2023-07-23] MEDS: buPROPion 100 MG TAB PO SCH ×2 (07:40→20:08)
[2023-07-23] MEDS: MEMANTINE 5MG TABLET (NAMENDA) PO SCH (07:41)
[2023-07-23 07:42] LABS: ALBUMIN 2.1 G/DL (3.2-5.2); CALCIUM LEVEL 7.8 MG/DL (8.3-10.6); CREATININE FOR GFR 4.53 MG/DL (0.55-1.30); GLOMERULAR FILTRATION RATE 10.1 (>39); PHOSPHORUS LEVEL 4.2 MG/DL (2.4-5.1); POTASSIUM SERUM 3.8 MMOL/L (3.5-5.1)
[2023-07-23] MEDS: ACETAMINOPH W/CODEINE #3 TAB UD PO PRN ×2 (07:45→16:58)
[2023-07-23] MEDS: CALCITRIOL 0.25 MCG CAP (S0169) PO SCH (07:45)
[2023-07-23] MEDS: ONDANSETRON 4MG ORAL DISINTEGRATING TAB PO PRN (11:07)
[2023-07-23 14:00] VITALS: BP 107/56; TEMP 97.2; O2SAT 98
[2023-07-23 20:00] VITALS: BP 127/71; TEMP 96.8; O2SAT 100
[2023-07-23] MEDS: ATORVASTATIN 10 MG TAB PO SCH (20:08)
[2023-07-23] MEDS: SERTRALINE HCL 25 MG TABLET PO SCH (20:08)
[2023-07-23] MEDS: SENNA 8.6 MG TAB (SENOKOT) PO SCH (20:09)
[2023-07-24 06:00] VITALS: BP 123/61; TEMP 97.1; O2SAT 100
[2023-07-24] MEDS ORDERED: HEPARIN 1,000UNITS/ML 10ML VIAL (FOR RADIOLOGY & DIALYSIS ONLY) IV PRN (06:15)
[2023-07-24] MEDS ORDERED: SODIUM CHLORIDE 0.9% 1000ML IV PRN (06:15)
[2023-07-24] MEDS ORDERED: LIDOCAINE 1% SDV 5ML VIAL SC PRN (06:15)
[2023-07-24] MEDS ORDERED: HEPARIN 1,000UNITS/ML 10ML VIAL (FOR RADIOLOGY & DIALYSIS ONLY) XX SCH (06:15)
[2023-07-24] MEDS: APIXABAN 5 MG TAB (ELIQUIS) PO SCH ×2 (08:57→21:00)
[2023-07-24] MEDS: PROPRANOLOL 10 MG TAB PO SCH ×3 (08:57→21:00)
[2023-07-24] MEDS: ACETAMINOPHEN 500 MG TAB PO SCH ×3 (08:57→20:59)
[2023-07-24] MEDS: PANTOPRAZOLE 40MG TAB (PROTONIX) PO SCH (08:58)
[2023-07-24] MEDS: LIDOCAINE 5% (LIDODERM) PATCH TD SCH (08:58)
[2023-07-24] MEDS: MEMANTINE 5MG TABLET (NAMENDA) PO SCH (08:58)
[2023-07-24] MEDS: ACETAMINOPH W/CODEINE #3 TAB UD PO PRN (08:58)
[2023-07-24] MEDS: CINACALCET 30 MG TAB (SENSIPAR) PO SCH (08:58)
[2023-07-24] MEDS: buPROPion 100 MG TAB PO SCH ×2 (08:58→20:59)
[2023-07-24] MEDS: CARVedilol 12.5 MG TAB PO SCH ×2 (08:58→21:00)
[2023-07-24] MEDS: LACTIC ACID 12% LOTION 225 GM BTL TOP SCH (08:59)
[2023-07-24] MEDS: PROPAFENONE 150 MG TAB PO SCH ×2 (12:19→20:59)
[2023-07-24] MEDS: IRON SUCROSE 100MG 5ML VIAL IV SCH (13:05)
[2023-07-24 14:00] VITALS: BP 102/48; TEMP 97.5; O2SAT 100
[2023-07-24] MEDS: DARBEPOETIN 100MCG/0.5ML *DIALYSIS* SYRINGE IV SCH (14:40)
[2023-07-24] MEDS: BISACODYL 10MG SUPP PR PRN (17:30)
[2023-07-24 20:00] VITALS: BP 122/56; TEMP 97; O2SAT 99
[2023-07-24] MEDS: SENNA 8.6 MG TAB (SENOKOT) PO SCH (20:59)
[2023-07-24] MEDS: SERTRALINE HCL 25 MG TABLET PO SCH (20:59)
[2023-07-24] MEDS: ATORVASTATIN 10 MG TAB PO SCH (21:00)
[2023-07-25 06:00] VITALS: BP 119/58; TEMP 97.6; O2SAT 99
[2023-07-25 07:05] LABS: ALBUMIN 2.3 G/DL (3.2-5.2); BILIRUBIN,TOTAL 0.3 MG/DL (0.3-1.2); CALCIUM LEVEL 8.1 MG/DL (8.3-10.6); CREATININE FOR GFR 3.49 MG/DL (0.55-1.30); GLOMERULAR FILTRATION RATE 13.7 (>39); POTASSIUM SERUM 4.4 MMOL/L (3.5-5.1); TOTAL PROTEIN 5.4 G/DL (5.7-8.2)
[2023-07-25] MEDS: LIDOCAINE 5% (LIDODERM) PATCH TD SCH (09:00)
[2023-07-25] MEDS: MEMANTINE 5MG TABLET (NAMENDA) PO SCH (09:00)
[2023-07-25] MEDS: CARVedilol 12.5 MG TAB PO SCH ×2 (09:00→20:12)
[2023-07-25] MEDS: CALCITRIOL 0.25 MCG CAP (S0169) PO SCH (09:00)
[2023-07-25] MEDS: LACTIC ACID 12% LOTION 225 GM BTL TOP SCH (09:00)
[2023-07-25] MEDS: PANTOPRAZOLE 40MG TAB (PROTONIX) PO SCH (09:00)
[2023-07-25] MEDS: buPROPion 100 MG TAB PO SCH ×2 (09:00→20:13)
[2023-07-25] MEDS: PROPAFENONE 150 MG TAB PO SCH ×2 (09:01→20:12)
[2023-07-25] MEDS: APIXABAN 5 MG TAB (ELIQUIS) PO SCH ×2 (09:01→20:11)
[2023-07-25] MEDS: PROPRANOLOL 10 MG TAB PO SCH ×3 (09:01→20:12)
[2023-07-25] MEDS: ACETAMINOPHEN 500 MG TAB PO SCH ×3 (09:01→20:13)
[2023-07-25] MEDS: ACETAMINOPH W/CODEINE #3 TAB UD PO PRN ×2 (09:04→20:12)
[2023-07-25] MEDS: MIRALAX *UNIT DOSE* 17GM PACKET PO PRN (12:11)
[2023-07-25 14:00] VITALS: BP 120/62; TEMP 97.6; O2SAT 100
[2023-07-25 18:32] VITALS: BP 140/68; TEMP 97.9; O2SAT 97
[2023-07-25 20:00] VITALS: BP 129/62; TEMP 97.6; O2SAT 100
[2023-07-25] MEDS: SERTRALINE HCL 25 MG TABLET PO SCH (20:11)
[2023-07-25] MEDS: ATORVASTATIN 10 MG TAB PO SCH (20:11)
[2023-07-25] MEDS: SENNA 8.6 MG TAB (SENOKOT) PO SCH (20:13)
[2023-07-26 06:00] VITALS: BP 129/62; TEMP 97.1; O2SAT 98
[2023-07-26] MEDS ORDERED: SODIUM CHLORIDE 0.9% 1000ML IV PRN (07:30)
[2023-07-26] MEDS ORDERED: LIDOCAINE 1% SDV 5ML VIAL SC PRN (07:30)
[2023-07-26] MEDS ORDERED: HEPARIN 1,000UNITS/ML 10ML VIAL (FOR RADIOLOGY & DIALYSIS ONLY) IV PRN (07:30)
[2023-07-26] MEDS ORDERED: HEPARIN 1,000UNITS/ML 10ML VIAL (FOR RADIOLOGY & DIALYSIS ONLY) XX SCH (07:30)
[2023-07-26] MEDS: CINACALCET 30 MG TAB (SENSIPAR) PO SCH (08:05)
[2023-07-26] MEDS: PROPAFENONE 150 MG TAB PO SCH ×2 (08:05→22:10)
[2023-07-26] MEDS: buPROPion 100 MG TAB PO SCH ×2 (08:05→22:11)
[2023-07-26] MEDS: APIXABAN 5 MG TAB (ELIQUIS) PO SCH ×2 (08:06→22:14)
[2023-07-26] MEDS: ACETAMINOPHEN 500 MG TAB PO SCH ×3 (08:06→22:12)
[2023-07-26] MEDS: CARVedilol 12.5 MG TAB PO SCH ×2 (08:06→22:13)
[2023-07-26] MEDS: ACETAMINOPH W/CODEINE #3 TAB UD PO PRN (08:07)
[2023-07-26] MEDS: PROPRANOLOL 10 MG TAB PO SCH ×3 (08:07→22:13)
[2023-07-26] MEDS: LIDOCAINE 5% (LIDODERM) PATCH TD SCH (08:08)
[2023-07-26] MEDS: LACTIC ACID 12% LOTION 225 GM BTL TOP SCH ×2 (08:09→09:00)
[2023-07-26] MEDS: MEMANTINE 5MG TABLET (NAMENDA) PO SCH (08:15)
[2023-07-26] MEDS: PANTOPRAZOLE 40MG TAB (PROTONIX) PO SCH (08:15)
[2023-07-26] MEDS: ONDANSETRON 4MG ORAL DISINTEGRATING TAB PO PRN (10:07)
[2023-07-26 14:00] VITALS: BP 117/59; TEMP 96.4; O2SAT 97
[2023-07-26] MEDS: IRON SUCROSE 100MG 5ML VIAL IV SCH (17:00)
[2023-07-26 20:08] VITALS: BP 138/72; TEMP 97.8; O2SAT 97
[2023-07-26] MEDS: SENNA 8.6 MG TAB (SENOKOT) PO SCH (22:12)
[2023-07-26] MEDS: SERTRALINE HCL 25 MG TABLET PO SCH (22:12)
[2023-07-26] MEDS: ATORVASTATIN 10 MG TAB PO SCH (22:13)
[2023-07-27 05:44] VITALS: BP 148/74; TEMP 96.2; O2SAT 97
[2023-07-27 06:59] LABS: HEMATOCRIT 25.2 % (36.0-47.0); HEMOGLOBIN 8.2 g/dl (12.0-15.5); MEAN CORPUSCULAR HEMOGLOBIN 32.7 pg (27.0-33.0); MEAN CORPUSCULAR HGB CONC 32.5 g/dl (32.0-36.5); MEAN CORPUSCULAR VOLUME 100.4 fl (80.0-96.0); PLATELET COUNT, AUTOMATED 460 10^3/uL (150-450); RED BLOOD COUNT 2.51 10^6/uL (4.00-5.40); WHITE BLOOD COUNT 10.7 10^3/uL (4.0-10.0)
[2023-07-27] MEDS: MIRALAX *UNIT DOSE* 17GM PACKET PO PRN (07:29)
[2023-07-27] MEDS: LACTIC ACID 12% LOTION 225 GM BTL TOP SCH (07:29)
[2023-07-27] MEDS: ACETAMINOPHEN 500 MG TAB PO SCH ×3 (07:30→21:25)
[2023-07-27] MEDS: PROPRANOLOL 10 MG TAB PO SCH ×3 (07:30→21:25)
[2023-07-27] MEDS: PROPAFENONE 150 MG TAB PO SCH ×2 (07:30→21:24)
[2023-07-27] MEDS: PANTOPRAZOLE 40MG TAB (PROTONIX) PO SCH (07:30)
[2023-07-27] MEDS: CARVedilol 12.5 MG TAB PO SCH ×2 (07:31→21:26)
[2023-07-27] MEDS: APIXABAN 5 MG TAB (ELIQUIS) PO SCH ×2 (07:31→21:25)
[2023-07-27] MEDS: buPROPion 100 MG TAB PO SCH ×2 (07:31→21:24)
[2023-07-27] MEDS: CALCITRIOL 0.25 MCG CAP (S0169) PO SCH (07:31)
[2023-07-27] MEDS: MEMANTINE 5MG TABLET (NAMENDA) PO SCH (07:31)
[2023-07-27 07:48] LABS: CALCIUM LEVEL 8.4 MG/DL (8.3-10.6); CREATININE FOR GFR 2.88 MG/DL (0.55-1.30); GLOMERULAR FILTRATION RATE 17.1 (>39); MAGNESIUM LEVEL 1.7 MG/DL (1.8-2.4); POTASSIUM SERUM 4.6 MMOL/L (3.5-5.1)
[2023-07-27 14:00] VITALS: BP 127/64; TEMP 97.3; O2SAT 95
[2023-07-27 19:17] VITALS: BP 134/60; TEMP 96.8; O2SAT 98
[2023-07-27] MEDS: SENNA 8.6 MG TAB (SENOKOT) PO SCH (21:24)
[2023-07-27] MEDS: ATORVASTATIN 10 MG TAB PO SCH (21:25)
[2023-07-27] MEDS: SERTRALINE HCL 25 MG TABLET PO SCH (21:25)
[2023-07-28 06:00] VITALS: BP 128/60; TEMP 97.1; O2SAT 98
[2023-07-28] MEDS ORDERED: LIDOCAINE 1% SDV 5ML VIAL SC PRN (06:35)
[2023-07-28] MEDS ORDERED: HEPARIN 1,000UNITS/ML 10ML VIAL (FOR RADIOLOGY & DIALYSIS ONLY) XX SCH (06:35)
[2023-07-28] MEDS ORDERED: SODIUM CHLORIDE 0.9% 1000ML IV PRN (06:35)
[2023-07-28] MEDS ORDERED: HEPARIN 1,000UNITS/ML 10ML VIAL (FOR RADIOLOGY & DIALYSIS ONLY) IV PRN (06:35)
[2023-07-28] MEDS: PROPAFENONE 150 MG TAB PO SCH ×2 (09:24→21:01)
[2023-07-28] MEDS: PANTOPRAZOLE 40MG TAB (PROTONIX) PO SCH (09:25)
[2023-07-28] MEDS: buPROPion 100 MG TAB PO SCH ×2 (09:25→21:00)
[2023-07-28] MEDS: MEMANTINE 5MG TABLET (NAMENDA) PO SCH (09:26)
[2023-07-28] MEDS: APIXABAN 5 MG TAB (ELIQUIS) PO SCH ×2 (09:26→21:01)
[2023-07-28] MEDS: CARVedilol 12.5 MG TAB PO SCH ×2 (09:27→21:01)
[2023-07-28] MEDS: CINACALCET 30 MG TAB (SENSIPAR) PO SCH (09:28)
[2023-07-28] MEDS: ACETAMINOPHEN 500 MG TAB PO SCH ×3 (09:29→21:00)
[2023-07-28] MEDS: LACTIC ACID 12% LOTION 225 GM BTL TOP SCH (09:30)
[2023-07-28] MEDS: PROPRANOLOL 10 MG TAB PO SCH ×3 (09:32→21:01)
[2023-07-28] MEDS: IRON SUCROSE 100MG 5ML VIAL IV SCH (13:10)
[2023-07-28 17:00] VITALS: BP 130/68; TEMP 98.1; O2SAT 96
[2023-07-28 20:00] VITALS: BP 140/65; TEMP 97.5; O2SAT 98
[2023-07-28] MEDS: SENNA 8.6 MG TAB (SENOKOT) PO SCH (21:01)
[2023-07-28] MEDS: SERTRALINE HCL 25 MG TABLET PO SCH (21:01)
[2023-07-28] MEDS: ATORVASTATIN 10 MG TAB PO SCH (21:01)
[2023-07-29 02:22] LABS: AMORPHOUS SEDIMENT SMALL (NEGATIVE); APPEARANCE, URINE TURBID (CLEAR); BACTERIA, URINE AUTO 2+ (NEGATIVE); BILIRUBIN, URINE AUTO NEGATIVE (NEGATIVE); BLOOD, URINE BLOOD 2+ (NEGATIVE); COLOR, URINE YELLOW (YELLOW); GLUCOSE, URINE (UA) AUTO NEGATIVE (NEGATIVE); KETONE, URINE AUTO TRACE mg/dL (NEGATIVE); LEUKOCYTE ESTERASE, URINE AUTO 2+ (NEGATIVE); NITRITE, URINE AUTO NEGATIVE (NEGATIVE); PROTEIN, URINE AUTO 3+ mg/dL (NEGATIVE); RBC, URINE AUTO 21 /HPF (0-3); SPECIFIC GRAVITY URINE AUTO 1.013 (1.002-1.035); SQUAMOUS EPITHELIAL CELL UR AU 2 /HPF (0-6); UROBILINOGEN, URINE AUTO 0.2 mg/dL (0.0-2.0); WBC, URINE AUTO TNTC /HPF (0-3)
[2023-07-29 06:00] VITALS: BP 134/66; TEMP 97.4; O2SAT 97
[2023-07-29] MEDS ORDERED: FOSFOMYCIN TROMETHAMINE 3 GM POWDER PACKET (MONUROL) PO ONE (07:00)
[2023-07-29] MEDS: MIRALAX *UNIT DOSE* 17GM PACKET PO PRN (08:18)
[2023-07-29] MEDS: PROPAFENONE 150 MG TAB PO SCH ×2 (08:18→20:16)
[2023-07-29] MEDS: PROPRANOLOL 10 MG TAB PO SCH ×3 (08:18→20:10)
[2023-07-29] MEDS: buPROPion 100 MG TAB PO SCH ×2 (08:18→20:08)
[2023-07-29] MEDS: APIXABAN 5 MG TAB (ELIQUIS) PO SCH ×2 (08:19→20:10)
[2023-07-29] MEDS: CARVedilol 12.5 MG TAB PO SCH ×2 (08:19→20:08)
[2023-07-29] MEDS: MEMANTINE 5MG TABLET (NAMENDA) PO SCH (08:19)
[2023-07-29] MEDS: CALCITRIOL 0.25 MCG CAP (S0169) PO SCH (08:19)
[2023-07-29] MEDS: PANTOPRAZOLE 40MG TAB (PROTONIX) PO SCH (08:19)
[2023-07-29] MEDS: LACTIC ACID 12% LOTION 225 GM BTL TOP SCH (08:20)
[2023-07-29] MEDS: ACETAMINOPHEN 500 MG TAB PO SCH ×3 (09:00→20:09)
[2023-07-29] MEDS: cefTRIAXone SOD 1 GM in D5W MINI-BAG PLUS 50 ML IV SCH (10:38)
[2023-07-29 14:00] VITALS: BP 143/67; TEMP 97.9; O2SAT 97
[2023-07-29 20:00] VITALS: BP 139/65; TEMP 97.4; O2SAT 98
[2023-07-29] MEDS: SENNA 8.6 MG TAB (SENOKOT) PO SCH (20:08)
[2023-07-29] MEDS: ATORVASTATIN 10 MG TAB PO SCH (20:08)
[2023-07-29] MEDS: SERTRALINE HCL 25 MG TABLET PO SCH (20:16)
[2023-07-30 06:00] VITALS: BP 142/72; TEMP 96.7; O2SAT 98
[2023-07-30] MEDS: MEMANTINE 5MG TABLET (NAMENDA) PO SCH (08:57)
[2023-07-30] MEDS: APIXABAN 5 MG TAB (ELIQUIS) PO SCH ×2 (08:58→20:13)
[2023-07-30] MEDS: PROPAFENONE 150 MG TAB PO SCH ×2 (08:58→20:11)
[2023-07-30] MEDS: PANTOPRAZOLE 40MG TAB (PROTONIX) PO SCH (08:58)
[2023-07-30] MEDS: ACETAMINOPHEN 500 MG TAB PO SCH ×4 (08:58→20:14)
[2023-07-30] MEDS: CARVedilol 12.5 MG TAB PO SCH ×2 (08:58→20:12)
[2023-07-30] MEDS: PROPRANOLOL 10 MG TAB PO SCH ×3 (08:58→20:13)
[2023-07-30] MEDS: buPROPion 100 MG TAB PO SCH ×2 (08:58→20:11)
[2023-07-30] MEDS: LACTIC ACID 12% LOTION 225 GM BTL TOP SCH (08:59)
[2023-07-30] MEDS: cefTRIAXone SOD 1 GM in D5W MINI-BAG PLUS 50 ML IV SCH (11:13)
[2023-07-30 14:00] VITALS: BP 119/58; TEMP 97.6; O2SAT 100
[2023-07-30 20:00] VITALS: BP 140/64; TEMP 98.4; O2SAT 99
[2023-07-30] MEDS: SERTRALINE HCL 25 MG TABLET PO SCH (20:13)
[2023-07-30] MEDS: ATORVASTATIN 10 MG TAB PO SCH (20:13)
[2023-07-30] MEDS: SENNA 8.6 MG TAB (SENOKOT) PO SCH (20:14)
[2023-07-31 06:00] VITALS: BP 135/64; TEMP 97.3; O2SAT 98
[2023-07-31] MEDS ORDERED: SODIUM CHLORIDE 0.9% 1000ML IV PRN (07:05)
[2023-07-31] MEDS ORDERED: LIDOCAINE 1% SDV 5ML VIAL SC PRN (07:05)
[2023-07-31] MEDS ORDERED: HEPARIN 1,000UNITS/ML 10ML VIAL (FOR RADIOLOGY & DIALYSIS ONLY) IV PRN (07:05)
[2023-07-31] MEDS ORDERED: HEPARIN 1,000UNITS/ML 10ML VIAL (FOR RADIOLOGY & DIALYSIS ONLY) XX SCH (07:05)
[2023-07-31] MEDS: ONDANSETRON 4MG ORAL DISINTEGRATING TAB PO PRN (07:17)
[2023-07-31] MEDS: buPROPion 100 MG TAB PO SCH ×2 (07:25→20:12)
[2023-07-31] MEDS: CALCITRIOL 0.25 MCG CAP (S0169) PO SCH (07:25)
[2023-07-31] MEDS: CINACALCET 30 MG TAB (SENSIPAR) PO SCH (07:25)
[2023-07-31] MEDS: MEMANTINE 5MG TABLET (NAMENDA) PO SCH (07:25)
[2023-07-31] MEDS: ACETAMINOPHEN 500 MG TAB PO SCH ×3 (07:25→20:12)
[2023-07-31] MEDS: CARVedilol 12.5 MG TAB PO SCH ×2 (07:26→20:12)
[2023-07-31] MEDS: PROPRANOLOL 10 MG TAB PO SCH ×3 (07:26→20:13)
[2023-07-31] MEDS: PROPAFENONE 150 MG TAB PO SCH ×2 (07:26→20:12)
[2023-07-31] MEDS: PANTOPRAZOLE 40MG TAB (PROTONIX) PO SCH (07:26)
[2023-07-31] MEDS: APIXABAN 5 MG TAB (ELIQUIS) PO SCH ×2 (07:26→20:13)
[2023-07-31] MEDS: LACTIC ACID 12% LOTION 225 GM BTL TOP SCH (07:28)
[2023-07-31] MEDS: cefTRIAXone SOD 1 GM in D5W MINI-BAG PLUS 50 ML IV SCH (09:55)
[2023-07-31] MEDS: LACTOBACILLUS ACIDOPHILUS CAP (BACID) PO SCH (11:09)
[2023-07-31] MEDS: DARBEPOETIN 100MCG/0.5ML *DIALYSIS* SYRINGE IV SCH (12:32)
[2023-07-31] MEDS: IRON SUCROSE 100MG 5ML VIAL IV SCH (14:17)
[2023-07-31 16:45] VITALS: BP 114/64; TEMP 98.1; O2SAT 99
[2023-07-31] MEDS: LOPERAMIDE 2 MG CAPLET PO PRN (18:17)
[2023-07-31] MEDS: CYCLOBENZAPRINE 5MG TABLET PO PRN ×2 (18:17→23:51)
[2023-07-31 19:29] VITALS: BP 157/74; TEMP 97.4; O2SAT 97
[2023-07-31] MEDS: SERTRALINE HCL 25 MG TABLET PO SCH (20:13)
[2023-07-31] MEDS: ATORVASTATIN 10 MG TAB PO SCH (20:13)
[2023-08-01 05:09] VITALS: BP 130/68; TEMP 97.5; O2SAT 98
[2023-08-01 06:47] LABS: HEMATOCRIT 24.6 % (36.0-47.0); HEMOGLOBIN 8.3 g/dl (12.0-15.5); MEAN CORPUSCULAR HEMOGLOBIN 34.6 pg (27.0-33.0); MEAN CORPUSCULAR HGB CONC 33.7 g/dl (32.0-36.5); MEAN CORPUSCULAR VOLUME 102.5 fl (80.0-96.0); PLATELET COUNT, AUTOMATED 458 10^3/uL (150-450)
[2023-08-01] MEDS: buPROPion 100 MG TAB PO SCH (07:16)
[2023-08-01] MEDS: ACETAMINOPHEN 500 MG TAB PO SCH (07:16)
[2023-08-01] MEDS: PROPAFENONE 150 MG TAB PO SCH (07:16)
[2023-08-01 07:17] VITALS: BP 130/68
[2023-08-01] MEDS: APIXABAN 5 MG TAB (ELIQUIS) PO SCH (07:17)
[2023-08-01] MEDS: LACTOBACILLUS ACIDOPHILUS CAP (BACID) PO SCH (07:17)
[2023-08-01] MEDS: CARVedilol 12.5 MG TAB PO SCH (07:17)
[2023-08-01] MEDS: PROPRANOLOL 10 MG TAB PO SCH (07:17)
[2023-08-01] MEDS: MEMANTINE 5MG TABLET (NAMENDA) PO SCH (07:17)
[2023-08-01] MEDS: PANTOPRAZOLE 40MG TAB (PROTONIX) PO SCH (07:17)
[2023-08-01] MEDS: LACTIC ACID 12% LOTION 225 GM BTL TOP SCH (07:18)
[2023-08-01 07:19] LABS: CALCIUM LEVEL 8.4 MG/DL (8.3-10.6); CREATININE FOR GFR 3.3 MG/DL (0.55-1.30); GLOMERULAR FILTRATION RATE 14.6 (>39); POTASSIUM SERUM 3.9 MMOL/L (3.5-5.1)
[2023-08-01] MEDS: LOPERAMIDE 2 MG CAPLET PO PRN (07:26)
[2023-08-01] MEDS ORDERED: CEFDINIR 300 MG CAP (OMNICEF) PO SCH (09:00)
[2023-08-01] MEDS ORDERED: CEFD300CAP PO (11:35)
[2023-08-01] MEDS ORDERED: LOPE2CA PO (11:35)
[2023-08-01] MEDS ORDERED: CYCL5TAB PO (11:35)
[2023-08-01] MEDS ORDERED: RISATAB3 PO (11:35)
== END 2023-08-01 12:04 | disposition other institution (70) | DRG 559 ==
LOC: M PM&R 16:20
PROVIDERS: ADMIT Student in an Organized Health Care Education/Training Program; ATTEND Student in an Organized Health Care Education/Training Program
PROC: 5A1D70Z Performance of Urinary Filtration, Intermittent, Less than 6 Hours Per Day (ICD-10-PCS; principal; 2023-07-19)
DX: S42.112D Displaced fracture of body of scapula, left shoulder, subsequent encounter for fracture with routine healing (principal); N18.6 End stage renal disease; I12.0 Hypertensive chronic kidney disease with stage 5 chronic kidney disease or end stage renal disease; N25.81 Secondary hyperparathyroidism of renal origin; E87.1 Hypo-osmolality and hyponatremia; N39.0 Urinary tract infection, site not specified; Z99.2 Dependence on renal dialysis; R26.89 Other abnormalities of gait and mobility; M81.0 Age-related osteoporosis without current pathological fracture; K59.00 Constipation, unspecified; E11.22 Type 2 diabetes mellitus with diabetic chronic kidney disease; Z74.09 Other reduced mobility; Z74.1 Need for assistance with personal care; G89.11 Acute pain due to trauma; D63.1 Anemia in chronic kidney disease; I48.91 Unspecified atrial fibrillation; E78.5 Hyperlipidemia, unspecified; R25.1 Tremor, unspecified; F03.90 Unspecified dementia, unspecified severity, without behavioral disturbance, psychotic disturbance, mood disturbance, and anxiety; F32.A Depression, unspecified; F41.9 Anxiety disorder, unspecified; K21.9 Gastro-esophageal reflux disease without esophagitis; Z79.01 Long term (current) use of anticoagulants; Z79.899 Other long term (current) drug therapy; Z88.2 Allergy status to sulfonamides; Z96.651 Presence of right artificial knee joint; R33.9 Retention of urine, unspecified

== ENCOUNTER → 2023-08-10 | Outpatient (CLI) | payer MEDICARE, BC ==
[~2023-08-10] MED LIST changes: +CEFD300CAP PO; +CYCL5TAB PO; +LOPE2CA PO; +RISATAB3 PO
== END ==
LOC: M WHC 11:07
PROVIDERS: ATTEND Family Medicine
DX: Z12.31 Encounter for screening mammogram for malignant neoplasm of breast (principal); E11.22 Type 2 diabetes mellitus with diabetic chronic kidney disease

== ENCOUNTER 2023-10-24 09:56 | Inpatient (IN) | payer MEDICARE, BC ==
[~2023-10-24] VITALS: Ht 170.2 cm; Wt 58.8 kg
[2023-10-24] MEDS: PANTOPRAZOLE 40MG TAB (PROTONIX) PO SCH (09:00)
[~2023-10-24 09:56] MED LIST changes: -ALLE1TAB23 PO; +FEXO-157 PO
[2023-10-24 11:03] LABS: BASO # 0.1 10^3/uL (0.0-0.2); BASO % 0.3 % (0.0-1.0); EOS % 0.1 % (0.0-3.0); HEMATOCRIT 30.4 % (36.0-47.0); HEMOGLOBIN 9.1 g/dl (12.0-15.5); LYMPH # 0.8 10^3/uL (1.5-5.0); LYMPH % 5.6 % (24.0-44.0); MEAN CORPUSCULAR HEMOGLOBIN 29.1 pg (27.0-33.0); MEAN CORPUSCULAR HGB CONC 29.9 g/dl (32.0-36.5); MEAN CORPUSCULAR VOLUME 97.1 fl (80.0-96.0); MONO # 1.1 10^3/uL (0.0-0.8); MONO % 7.2 % (2.0-8.0); NEUTROPHILS % 85.9 % (36.0-66.0); PLATELET COUNT, AUTOMATED 460 10^3/uL (150-450); RED BLOOD COUNT 3.13 10^6/uL (4.00-5.40); WHITE BLOOD COUNT 15.1 10^3/uL (4.0-10.0)
[2023-10-24 11:15] LABS: INR 1.95; PROTHROMBIN TIME 21.6 SECONDS (12.5-14.5)
[2023-10-24 11:29] LABS: ALBUMIN 2.4 G/DL (3.2-5.2); ALKALINE PHOSPHATASE 110 U/L (46-116); ALT/SGPT < 9 U/L (7.0-40); AST/SGOT 11 U/L (<34); BILIRUBIN,DIRECT 0.2 MG/DL (<0.4); BILIRUBIN,TOTAL 0.4 MG/DL (0.3-1.2); BLOOD UREA NITROGEN 30 MG/DL (9-23); CALCIUM LEVEL 9.1 MG/DL (8.3-10.6); CARBON DIOXIDE LEVEL 29 MMOL/L (20-31); CHLORIDE LEVEL 100 MMOL/L (98-107); CK-MB VALUE MASS < 1.0 NG/ML (<3.6); CREATININE FOR GFR 3.92 MG/DL (0.55-1.30); GLUCOSE, FASTING 153 MG/DL (74-106); POTASSIUM SERUM 4.2 MMOL/L (3.5-5.1); SODIUM LEVEL 134 MMOL/L (136-145); TOTAL PROTEIN 5.9 G/DL (5.7-8.2)
[2023-10-24 11:30] LABS: THYROXINE (T4) 8.3 UG/DL (4.5-10.9)
[2023-10-24 11:31] LABS: THYROID STIMULATING HORMONE 1.688 uIU/ML (0.55-4.78)
[2023-10-24] MEDS ORDERED: MED REC IN PROGRESS XX SCH (12:25)
[2023-10-24] MEDS ORDERED: LIDOCAINE 1% SDV 5ML VIAL SC PRN (12:50)
[2023-10-24] MEDS ORDERED: MOM 30ML SUSPENSION UDC PO PRN (12:50)
[2023-10-24] MEDS ORDERED: SODIUM CHLORIDE 0.9% 1000ML IV PRN (12:50)
[2023-10-24] MEDS ORDERED: ACET-907 PO (13:25)
[2023-10-24] MEDS ORDERED: CALC1CAP31 PO (13:27)
[2023-10-24] MEDS ORDERED: HOME MED LIST COMPLETE! XX SCH ×2 (13:30→13:45)
[2023-10-24] MEDS ORDERED: FLUTICASONE PROP 0.05% NASAL SPRAY 16 GM (FLONASE) NARES PRN (14:55)
[2023-10-24 15:37] LABS: CPK CREATINE PHOSPHOKINASE < 15 U/L (34-145)
[2023-10-24] MEDS: PROPRANOLOL 10 MG TAB PO SCH ×2 (16:00→21:09)
[2023-10-24 19:24] VITALS: O2SAT 99
[2023-10-24 19:26] VITALS: BP 167/92; TEMP 98; O2SAT 96
[2023-10-24 20:00] VITALS: PULSE 108; O2SAT 98
[2023-10-24] MEDS ORDERED: PILL CUTTER 1 EACH XX ONE (20:59)
[2023-10-24 21:00] VITALS: O2SAT 100
[2023-10-24] MEDS: DOCUSATE SODIUM 100MG CAPSULE PO SCH ×2 (21:00→21:09)
[2023-10-24] MEDS: PROPAFENONE 150 MG TAB PO SCH (21:08)
[2023-10-24] MEDS: SERTRALINE HCL 25 MG TABLET PO SCH (21:08)
[2023-10-24] MEDS: ATORVASTATIN 10 MG TAB PO SCH (21:08)
[2023-10-24] MEDS: buPROPion 100 MG TAB PO SCH (21:09)
[2023-10-24] MEDS: APIXABAN 5 MG TAB (ELIQUIS) PO SCH (21:09)
[2023-10-24] MEDS: CARVedilol 12.5 MG TAB PO SCH (21:09)
[2023-10-24] MEDS ORDERED: DEXTROSE 50% 50ML SYRINGE IV PRN (21:35)
[2023-10-24] MEDS ORDERED: GLUCOSE 4GM CHEW TABLET PO PRN (21:35)
[2023-10-24] MEDS ORDERED: GLUCAGON INJ 1MG VIAL SC PRN (21:35)
[2023-10-24 22:00] VITALS: O2SAT 100
[2023-10-24] MEDS: ACETAMINOPHEN TAB 650MG DOSE (2X325MG) PO PRN (22:02)
[2023-10-24 23:00] VITALS: O2SAT 100
[2023-10-25] VITALS (27 sets, daily range): BP systolic 99–134; BP diastolic 54–83; PULSE 108; TEMP 97.2–97.9; O2SAT 90–100
[2023-10-25] MEDS ORDERED: SODIUM CHLORIDE 0.9% 1000ML IV PRN (06:00)
[2023-10-25] MEDS ORDERED: LIDOCAINE 1% SDV 5ML VIAL SC PRN (06:00)
[2023-10-25 06:32] LABS: HEMATOCRIT 28.2 % (36.0-47.0); HEMOGLOBIN 8.4 g/dl (12.0-15.5); MEAN CORPUSCULAR HEMOGLOBIN 29.2 pg (27.0-33.0); MEAN CORPUSCULAR HGB CONC 29.8 g/dl (32.0-36.5); MEAN CORPUSCULAR VOLUME 97.9 fl (80.0-96.0); PLATELET COUNT, AUTOMATED 420 10^3/uL (150-450); RED BLOOD COUNT 2.88 10^6/uL (4.00-5.40); WHITE BLOOD COUNT 13.7 10^3/uL (4.0-10.0)
[2023-10-25 07:03] LABS: ALBUMIN 2.3 G/DL (3.2-5.2); CALCIUM LEVEL 8.9 MG/DL (8.3-10.6); CREATININE FOR GFR 4.67 MG/DL (0.55-1.30); GLOMERULAR FILTRATION RATE 9.8 (>39); MAGNESIUM LEVEL 1.5 MG/DL (1.8-2.4); PHOSPHORUS LEVEL 4.1 MG/DL (2.4-5.1); POTASSIUM SERUM 4.3 MMOL/L (3.5-5.1)
[2023-10-25] MEDS: INSULIN LISPRO (NovoLOG) PER UNIT SC SCH ×4 (07:30→20:39)
[2023-10-25] MEDS: CARVedilol 12.5 MG TAB PO SCH ×2 (08:09→20:34)
[2023-10-25] MEDS: PROPRANOLOL 10 MG TAB PO SCH ×3 (09:00→20:36)
[2023-10-25] MEDS: DOCUSATE SODIUM 100MG CAPSULE PO SCH ×2 (09:00→20:33)
[2023-10-25] MEDS: MAG SULF 1GM/100ML (MAG RUN) 1 GM in IV 1 EA IV SCH ×2 (12:00→13:55)
[2023-10-25] MEDS: DARBEPOETIN 100MCG/0.5ML *DIALYSIS* SYRINGE IV SCH (12:44)
[2023-10-25] MEDS ORDERED: PILL CUTTER 1 EACH XX ONE (13:54)
[2023-10-25] MEDS: CINACALCET 30 MG TAB (SENSIPAR) PO SCH (13:55)
[2023-10-25] MEDS: PROPAFENONE 150 MG TAB PO SCH ×2 (13:55→20:35)
[2023-10-25] MEDS: APIXABAN 5 MG TAB (ELIQUIS) PO SCH ×2 (13:56→20:34)
[2023-10-25] MEDS: PANTOPRAZOLE 40MG TAB (PROTONIX) PO SCH (13:56)
[2023-10-25] MEDS: MEMANTINE 5MG TABLET (NAMENDA) PO SCH (13:56)
[2023-10-25] MEDS: buPROPion 100 MG TAB PO SCH ×2 (13:56→20:35)
[2023-10-25] MEDS: CALCITRIOL 0.25 MCG CAP (S0169) PO SCH (13:56)
[2023-10-25] MEDS: LACTIC ACID 12% LOTION 225 GM BTL TOP SCH (13:57)
[2023-10-25] MEDS: ACETAMINOPHEN TAB 650MG DOSE (2X325MG) PO PRN ×2 (14:31→20:38)
[2023-10-25] MEDS ORDERED: MAG SULF 1GM/100ML (MAG RUN) 1 GM in IV 1 EA IV SCH (15:00)
[2023-10-25] MEDS: SERTRALINE HCL 25 MG TABLET PO SCH (20:35)
[2023-10-25] MEDS: ATORVASTATIN 10 MG TAB PO SCH (20:36)
[2023-10-26] VITALS (29 sets, daily range): BP systolic 108–139; BP diastolic 60–78; TEMP 97.2–98.2; O2SAT 92–96
[2023-10-26 06:44] LABS: HEMATOCRIT 28.1 % (36.0-47.0); HEMOGLOBIN 8.4 g/dl (12.0-15.5); MEAN CORPUSCULAR HEMOGLOBIN 28.4 pg (27.0-33.0); MEAN CORPUSCULAR HGB CONC 29.9 g/dl (32.0-36.5); MEAN CORPUSCULAR VOLUME 94.9 fl (80.0-96.0); PLATELET COUNT, AUTOMATED 385 10^3/uL (150-450); RED BLOOD COUNT 2.96 10^6/uL (4.00-5.40); WHITE BLOOD COUNT 10.8 10^3/uL (4.0-10.0)
[2023-10-26 07:10] LABS: ALBUMIN 2.1 G/DL (3.2-5.2); CALCIUM LEVEL 7.7 MG/DL (8.3-10.6); CREATININE FOR GFR 3.47 MG/DL (0.55-1.30); GLOMERULAR FILTRATION RATE 13.8 (>39); POTASSIUM SERUM 4.5 MMOL/L (3.5-5.1)
[2023-10-26] MEDS: INSULIN LISPRO (NovoLOG) PER UNIT SC SCH ×4 (07:30→21:00)
[2023-10-26] MEDS ORDERED: PILL CUTTER 1 EACH XX ONE (08:22)
[2023-10-26] MEDS: ACETAMINOPHEN TAB 650MG DOSE (2X325MG) PO PRN ×2 (08:24→21:20)
[2023-10-26] MEDS: PROPAFENONE 150 MG TAB PO SCH ×2 (08:24→21:18)
[2023-10-26] MEDS: APIXABAN 5 MG TAB (ELIQUIS) PO SCH ×2 (08:24→21:19)
[2023-10-26] MEDS: buPROPion 100 MG TAB PO SCH ×2 (08:24→21:18)
[2023-10-26] MEDS: MEMANTINE 5MG TABLET (NAMENDA) PO SCH (08:24)
[2023-10-26] MEDS: LACTIC ACID 12% LOTION 225 GM BTL TOP SCH (08:25)
[2023-10-26] MEDS: PANTOPRAZOLE 40MG TAB (PROTONIX) PO SCH (08:25)
[2023-10-26] MEDS: CARVedilol 12.5 MG TAB PO SCH ×2 (08:25→21:18)
[2023-10-26] MEDS: PROPRANOLOL 10 MG TAB PO SCH ×3 (08:25→21:20)
[2023-10-26] MEDS: DOCUSATE SODIUM 100MG CAPSULE PO SCH ×2 (08:26→21:00)
[2023-10-26] MEDS ORDERED: COLCHICINE 0.6 MG TABLET PO SCH (21:00)
[2023-10-26] MEDS: SERTRALINE HCL 25 MG TABLET PO SCH (21:19)
[2023-10-26] MEDS: ATORVASTATIN 10 MG TAB PO SCH (21:19)
[2023-10-27] VITALS (21 sets, daily range): BP systolic 101–142; BP diastolic 43–83; TEMP 97.2–98.2; O2SAT 66–100
[2023-10-27] MEDS ORDERED: SODIUM CHLORIDE 0.9% 1000ML IV PRN (06:00)
[2023-10-27] MEDS ORDERED: LIDOCAINE 1% SDV 5ML VIAL SC PRN (06:00)
[2023-10-27] MEDS: INSULIN LISPRO (NovoLOG) PER UNIT SC SCH ×4 (07:19→20:33)
[2023-10-27] MEDS: DOCUSATE SODIUM 100MG CAPSULE PO SCH ×2 (09:00→20:33)
[2023-10-27] MEDS: ASPIRIN 81MG ENTERIC TABLET PO SCH (09:00)
[2023-10-27 09:38] LABS: ALBUMIN 2.1 G/DL (3.2-5.2); CALCIUM LEVEL 7.6 MG/DL (8.3-10.6); CREATININE FOR GFR 3.65 MG/DL (0.55-1.30); MAGNESIUM LEVEL 1.8 MG/DL (1.8-2.4); PHOSPHORUS LEVEL 2.8 MG/DL (2.4-5.1); POTASSIUM SERUM 3.8 MMOL/L (3.5-5.1)
[2023-10-27 10:33] LABS: HEMATOCRIT 31.6 % (36.0-47.0); HEMOGLOBIN 9.7 g/dl (12.0-15.5); MEAN CORPUSCULAR HEMOGLOBIN 28.7 pg (27.0-33.0); MEAN CORPUSCULAR HGB CONC 30.7 g/dl (32.0-36.5); MEAN CORPUSCULAR VOLUME 93.5 fl (80.0-96.0); PLATELET COUNT, AUTOMATED 468 10^3/uL (150-450); RED BLOOD COUNT 3.38 10^6/uL (4.00-5.40); WHITE BLOOD COUNT 21.9 10^3/uL (4.0-10.0)
[2023-10-27] MEDS ORDERED: ISOVUE-370 76% 100ML VIAL As Ordered ONE (12:20)
[2023-10-27 12:51] LABS: C REACTIVE PROTEIN QUANTITATIV 12.4 MG/DL (<1.0)
[2023-10-27 13:08] LABS: ERYTHROCYTE SEDIMENTATION RATE 102 mm/hr (0-30)
[2023-10-27] MEDS: buPROPion 100 MG TAB PO SCH ×2 (13:18→20:33)
[2023-10-27] MEDS: COLCHICINE 0.6 MG TABLET PO SCH (13:18)
[2023-10-27] MEDS: CALCITRIOL 0.25 MCG CAP (S0169) PO SCH (13:18)
[2023-10-27] MEDS: PANTOPRAZOLE 40MG TAB (PROTONIX) PO SCH (13:19)
[2023-10-27] MEDS: CARVedilol 12.5 MG TAB PO SCH (13:19)
[2023-10-27] MEDS: MEMANTINE 5MG TABLET (NAMENDA) PO SCH (13:20)
[2023-10-27] MEDS: PROPAFENONE 150 MG TAB PO SCH ×2 (13:20→20:33)
[2023-10-27] MEDS: APIXABAN 5 MG TAB (ELIQUIS) PO SCH (13:20)
[2023-10-27] MEDS: LACTIC ACID 12% LOTION 225 GM BTL TOP SCH (13:21)
[2023-10-27] MEDS: CINACALCET 30 MG TAB (SENSIPAR) PO SCH (13:26)
[2023-10-27 15:34] LABS: PROCALCITONIN 0.36 ng/ml
[2023-10-27] MEDS ORDERED: MIDAZOLAM INJ 2MG/2ML VIAL As Ordered ONE (16:26)
[2023-10-27] MEDS ORDERED: LIDOCAINE 1% MDV 20ML VIAL As Ordered ONE (16:27)
[2023-10-27] MEDS ORDERED: flumazeniL 0.5MG/5ML VIAL As Ordered ONE (16:28)
[2023-10-27] MEDS ORDERED: BISACODYL 10MG SUPP PR PRN (17:25)
[2023-10-27] MEDS ORDERED: LEVALBUTEROL 1.25MG 0.5ML CONCENTRATE NEB NEB PRN (17:25)
[2023-10-27] MEDS ORDERED: LIDOCAINE 1% MDV 20ML VIAL SC ONE (17:50)
[2023-10-27 17:59] LABS: PH BODY FLUID 7.658 UNITS (NOT ESTABLISHED); SOURCE, BODY FLUID pH PLEURAL
[2023-10-27] MEDS: KCL 20MEQ IN D5/NS 1000ML 1,000 ML IV SCH (18:27)
[2023-10-27 18:28] LABS: SOURCE, BODY FLUID ALBUMIN PLEURAL
[2023-10-27 18:29] LABS: APPEARANCE, BODY FLUID HAZY (CLEAR); PLEURAL FL COLOR YELLOW (COLORLESS); SOURCE, BODY FLUID PLEURAL
[2023-10-27] MEDS: KETOROLAC 30 MG/ML 1ML VIAL IV SCH ×2 (18:29→23:32)
[2023-10-27 18:34] LABS: SOURCE, BODY FLUID GLUCOSE PLEURAL; SOURCE, BODY FLUID TRIG PLEURAL; TRIGLYCERIDE, BODY FLUID 36 MG/DL (NOT ESTABLISHED)
[2023-10-27 18:35] LABS: AMYLASE, BODY FLUID 32 U/L (NOT ESTABLISHED); LDH, BODY FLUID 104 U/L (NOT ESTABLISHED); SOURCE, BODY FLUID AMYLASE PLEURAL; SOURCE, BODY FLUID LDH PLEURAL
[2023-10-27 18:36] LABS: CHOLESTEROL, BODY FLUID 54 MG/DL (NOT ESTABLISHED); SOURCE, BODY FLUID CHOL PLEURAL; SOURCE, BODY FLUID TOT PROTEIN PLEURAL; TOTAL PROTEIN, BODY FLUID 3.2 G/DL (NOT ESTABLISHED)
[2023-10-27] MEDS: LEVALBUTEROL 1.25MG 0.5ML CONCENTRATE NEB NEB SCH (19:31)
[2023-10-27] MEDS: SERTRALINE HCL 25 MG TABLET PO SCH (20:33)
[2023-10-27] MEDS: ATORVASTATIN 10 MG TAB PO SCH (20:33)
[2023-10-28] VITALS (21 sets, daily range): BP systolic 97–134; BP diastolic 55–70; TEMP 96.4–97.9; O2SAT 93–100
[2023-10-28] MEDS: LEVALBUTEROL 1.25MG 0.5ML CONCENTRATE NEB NEB SCH ×4 (02:00→19:19)
[2023-10-28] MEDS: KCL 20MEQ IN D5/NS 1000ML 1,000 ML IV SCH (05:34)
[2023-10-28] MEDS: KETOROLAC 30 MG/ML 1ML VIAL IV SCH ×2 (05:34→12:47)
[2023-10-28] MEDS ORDERED: SODIUM CHLORIDE 0.9% 1000ML IV PRN (06:00)
[2023-10-28] MEDS ORDERED: LIDOCAINE 1% SDV 5ML VIAL SC PRN (06:00)
[2023-10-28] MEDS: INSULIN LISPRO (NovoLOG) PER UNIT SC SCH ×2 (07:30→12:00)
[2023-10-28] MEDS: DOCUSATE SODIUM 100MG CAPSULE PO SCH ×2 (08:06→20:10)
[2023-10-28] MEDS: MOM 30ML SUSPENSION UDC PO SCH (08:06)
[2023-10-28 08:32] LABS: BASO % 0.2 % (0.0-1.0); EOS % 0.1 % (0.0-3.0); HEMOGLOBIN 8.8 g/dl (12.0-15.5); LYMPH # 0.8 10^3/uL (1.5-5.0); LYMPH % 6.1 % (24.0-44.0); MEAN CORPUSCULAR HEMOGLOBIN 28.9 pg (27.0-33.0); MEAN CORPUSCULAR HGB CONC 30.3 g/dl (32.0-36.5); MEAN CORPUSCULAR VOLUME 95.4 fl (80.0-96.0); MONO # 1.5 10^3/uL (0.0-0.8); MONO % 12.6 % (2.0-8.0); NEUTROPHILS # 9.9 10^3/uL (1.5-8.5); NEUTROPHILS % 80.4 % (36.0-66.0); PLATELET COUNT, AUTOMATED 458 10^3/uL (150-450); RED BLOOD COUNT 3.04 10^6/uL (4.00-5.40); WHITE BLOOD COUNT 12.2 10^3/uL (4.0-10.0)
[2023-10-28] MEDS: PROPAFENONE 150 MG TAB PO SCH ×2 (08:57→20:06)
[2023-10-28] MEDS: PANTOPRAZOLE 40MG TAB (PROTONIX) PO SCH (08:57)
[2023-10-28] MEDS: ASPIRIN 81MG ENTERIC TABLET PO SCH (08:57)
[2023-10-28] MEDS: buPROPion 100 MG TAB PO SCH ×2 (08:57→20:06)
[2023-10-28 09:00] LABS: CALCIUM LEVEL 7.5 MG/DL (8.3-10.6); CREATININE FOR GFR 3.56 MG/DL (0.55-1.30); GLOMERULAR FILTRATION RATE 13.4 (>39); MAGNESIUM LEVEL 1.8 MG/DL (1.8-2.4); PHOSPHORUS LEVEL 3.5 MG/DL (2.4-5.1); POTASSIUM SERUM 4.3 MMOL/L (3.5-5.1)
[2023-10-28] MEDS: MEMANTINE 5MG TABLET (NAMENDA) PO SCH (09:00)
[2023-10-28] MEDS: LACTIC ACID 12% LOTION 225 GM BTL TOP SCH (09:05)
[2023-10-28] MEDS: APIXABAN 5 MG TAB (ELIQUIS) PO SCH ×2 (13:49→20:06)
[2023-10-28] MEDS: COLCHICINE 0.6 MG TABLET PO SCH (13:49)
[2023-10-28] MEDS: ATORVASTATIN 10 MG TAB PO SCH (20:06)
[2023-10-28] MEDS: SERTRALINE HCL 25 MG TABLET PO SCH (20:08)
[2023-10-29] VITALS (23 sets, daily range): BP systolic 116–128; BP diastolic 65–75; TEMP 97–97.9; O2SAT 94–100
[2023-10-29] MEDS: LEVALBUTEROL 1.25MG 0.5ML CONCENTRATE NEB NEB SCH ×4 (01:16→19:52)
[2023-10-29 05:26] LABS: BASO # 0.1 10^3/uL (0.0-0.2); BASO % 0.6 % (0.0-1.0); EOS # 0.1 10^3/uL (0.0-0.5); EOS % 1.2 % (0.0-3.0); HEMATOCRIT 29.6 % (36.0-47.0); LYMPH # 0.9 10^3/uL (1.5-5.0); LYMPH % 7.5 % (24.0-44.0); MEAN CORPUSCULAR HEMOGLOBIN 29.1 pg (27.0-33.0); MEAN CORPUSCULAR HGB CONC 30.4 g/dl (32.0-36.5); MEAN CORPUSCULAR VOLUME 95.8 fl (80.0-96.0); MONO # 1.2 10^3/uL (0.0-0.8); MONO % 9.8 % (2.0-8.0); NEUTROPHILS # 9.6 10^3/uL (1.5-8.5); NEUTROPHILS % 80.4 % (36.0-66.0); PLATELET COUNT, AUTOMATED 452 10^3/uL (150-450); RED BLOOD COUNT 3.09 10^6/uL (4.00-5.40); WHITE BLOOD COUNT 11.9 10^3/uL (4.0-10.0)
[2023-10-29 05:55] LABS: CREATININE FOR GFR 3.23 MG/DL (0.55-1.30); MAGNESIUM LEVEL 1.6 MG/DL (1.8-2.4)
[2023-10-29] MEDS ORDERED: SODIUM CHLORIDE 0.9% 1000ML IV PRN (06:00)
[2023-10-29] MEDS ORDERED: LIDOCAINE 1% SDV 5ML VIAL SC PRN (06:00)
[2023-10-29] MEDS: LACTIC ACID 12% LOTION 225 GM BTL TOP SCH (06:13)
[2023-10-29] MEDS: ASPIRIN 81MG ENTERIC TABLET PO SCH (06:13)
[2023-10-29] MEDS: MOM 30ML SUSPENSION UDC PO SCH (08:17)
[2023-10-29] MEDS: DOCUSATE SODIUM 100MG CAPSULE PO SCH (08:17)
[2023-10-29] MEDS: PINK BISMUTH SUSP 524MG/30ML ORAL SYRINGE PO SCH ×3 (12:00→21:28)
[2023-10-29] MEDS: PANTOPRAZOLE 40MG TAB (PROTONIX) PO SCH (13:37)
[2023-10-29] MEDS: CALCITRIOL 0.25 MCG CAP (S0169) PO SCH (13:38)
[2023-10-29] MEDS: buPROPion 100 MG TAB PO SCH ×2 (13:39→21:21)
[2023-10-29] MEDS: COLCHICINE 0.6 MG TABLET PO SCH (13:40)
[2023-10-29] MEDS: PROPAFENONE 150 MG TAB PO SCH ×2 (13:41→21:21)
[2023-10-29] MEDS: MAGNESIUM OXIDE 400MG TAB (MAG-OX) PO SCH ×2 (13:41→13:47)
[2023-10-29] MEDS: MEMANTINE 5MG TABLET (NAMENDA) PO SCH (13:41)
[2023-10-29] MEDS: APIXABAN 5 MG TAB (ELIQUIS) PO SCH ×2 (13:41→21:22)
[2023-10-29] MEDS: MAG SULF 1GM/100ML (MAG RUN) 1 GM in IV 1 EA IV SCH ×3 (15:29→17:30)
[2023-10-29] MEDS: SERTRALINE HCL 25 MG TABLET PO SCH (21:23)
[2023-10-29] MEDS: CARVedilol 6.25 MG TAB PO SCH (21:23)
[2023-10-29] MEDS: ATORVASTATIN 10 MG TAB PO SCH (21:23)
[2023-10-30] VITALS (26 sets, daily range): BP systolic 114–142; BP diastolic 68–79; TEMP 96.5–98.7; O2SAT 88–98
[2023-10-30] MEDS: LEVALBUTEROL 1.25MG 0.5ML CONCENTRATE NEB NEB SCH (02:00)
[2023-10-30 06:31] LABS: BASO # 0.1 10^3/uL (0.0-0.2); BASO % 0.7 % (0.0-1.0); EOS # 0.1 10^3/uL (0.0-0.5); EOS % 1.3 % (0.0-3.0); HEMATOCRIT 29.1 % (36.0-47.0); HEMOGLOBIN 8.8 g/dl (12.0-15.5); LYMPH # 0.9 10^3/uL (1.5-5.0); MEAN CORPUSCULAR HEMOGLOBIN 28.3 pg (27.0-33.0); MEAN CORPUSCULAR HGB CONC 30.2 g/dl (32.0-36.5); MEAN CORPUSCULAR VOLUME 93.6 fl (80.0-96.0); MONO # 1.1 10^3/uL (0.0-0.8); MONO % 11.3 % (2.0-8.0); NEUTROPHILS # 7.4 10^3/uL (1.5-8.5); NEUTROPHILS % 77.1 % (36.0-66.0); PLATELET COUNT, AUTOMATED 472 10^3/uL (150-450); RED BLOOD COUNT 3.11 10^6/uL (4.00-5.40); WHITE BLOOD COUNT 9.6 10^3/uL (4.0-10.0)
[2023-10-30 06:43] LABS: ALBUMIN 1.9 G/DL (3.2-5.2); CALCIUM LEVEL 8.1 MG/DL (8.3-10.6); CREATININE FOR GFR 2.84 MG/DL (0.55-1.30); GLOMERULAR FILTRATION RATE 17.3 (>39); MAGNESIUM LEVEL 2.5 MG/DL (1.8-2.4); PHOSPHORUS LEVEL 2.4 MG/DL (2.4-5.1)
[2023-10-30] MEDS: PINK BISMUTH SUSP 524MG/30ML ORAL SYRINGE PO SCH ×4 (07:47→20:51)
[2023-10-30] MEDS: PROPAFENONE 150 MG TAB PO SCH ×2 (09:23→20:50)
[2023-10-30] MEDS: PERCOCET 5MG/325MG TAB PO PRN (09:23)
[2023-10-30] MEDS: buPROPion 100 MG TAB PO SCH ×2 (09:24→20:50)
[2023-10-30] MEDS: APIXABAN 5 MG TAB (ELIQUIS) PO SCH ×2 (09:24→20:49)
[2023-10-30] MEDS: CARVedilol 6.25 MG TAB PO SCH ×2 (09:24→20:50)
[2023-10-30] MEDS: ASPIRIN 81MG ENTERIC TABLET PO SCH (09:24)
[2023-10-30] MEDS: MEMANTINE 5MG TABLET (NAMENDA) PO SCH (09:24)
[2023-10-30] MEDS: PANTOPRAZOLE 40MG TAB (PROTONIX) PO SCH (09:24)
[2023-10-30] MEDS: LACTIC ACID 12% LOTION 225 GM BTL TOP SCH (09:31)
[2023-10-30] MEDS: CINACALCET 30 MG TAB (SENSIPAR) PO SCH (09:31)
[2023-10-30] MEDS: SERTRALINE HCL 25 MG TABLET PO SCH (20:49)
[2023-10-30] MEDS: RALOXIFENE 60 MG PO SCH (20:50)
[2023-10-30] MEDS: ATORVASTATIN 10 MG TAB PO SCH (20:50)
[2023-10-31] VITALS (21 sets, daily range): BP systolic 115–133; BP diastolic 58–73; TEMP 97.4–97.8; O2SAT 90–98
[2023-10-31] MEDS ORDERED: HEPARIN 1,000UNITS/ML 10ML VIAL (FOR RADIOLOGY & DIALYSIS ONLY) XX SCH (07:15)
[2023-10-31] MEDS ORDERED: SODIUM CHLORIDE 0.9% 1000ML IV PRN (07:15)
[2023-10-31] MEDS ORDERED: HEPARIN 1,000UNITS/ML 10ML VIAL (FOR RADIOLOGY & DIALYSIS ONLY) IV PRN (07:15)
[2023-10-31] MEDS ORDERED: LIDOCAINE 1% SDV 5ML VIAL SC PRN (07:15)
[2023-10-31 07:41] LABS: BASO # 0.1 10^3/uL (0.0-0.2); BASO % 0.4 % (0.0-1.0); EOS # 0.1 10^3/uL (0.0-0.5); EOS % 0.8 % (0.0-3.0); HEMATOCRIT 30.8 % (36.0-47.0); HEMOGLOBIN 9.4 g/dl (12.0-15.5); LYMPH # 0.8 10^3/uL (1.5-5.0); LYMPH % 4.9 % (24.0-44.0); MEAN CORPUSCULAR HEMOGLOBIN 28.4 pg (27.0-33.0); MEAN CORPUSCULAR HGB CONC 30.5 g/dl (32.0-36.5); MEAN CORPUSCULAR VOLUME 93.1 fl (80.0-96.0); MONO # 1.2 10^3/uL (0.0-0.8); MONO % 7.5 % (2.0-8.0); NEUTROPHILS # 13.3 10^3/uL (1.5-8.5); NEUTROPHILS % 85.9 % (36.0-66.0); PLATELET COUNT, AUTOMATED 514 10^3/uL (150-450); RED BLOOD COUNT 3.31 10^6/uL (4.00-5.40); WHITE BLOOD COUNT 15.5 10^3/uL (4.0-10.0)
[2023-10-31 08:20] LABS: CALCIUM LEVEL 7.7 MG/DL (8.3-10.6); CREATININE FOR GFR 4.1 MG/DL (0.55-1.30); GLOMERULAR FILTRATION RATE 11.4 (>39); POTASSIUM SERUM 4.4 MMOL/L (3.5-5.1)
[2023-10-31] MEDS: PINK BISMUTH SUSP 524MG/30ML ORAL SYRINGE PO SCH (09:35)
[2023-10-31] MEDS: buPROPion 100 MG TAB PO SCH ×2 (09:36→21:44)
[2023-10-31] MEDS: ONDANSETRON 4MG 2ML VIAL IV PRN (09:36)
[2023-10-31] MEDS: CALCITRIOL 0.25 MCG CAP (S0169) PO SCH (09:36)
[2023-10-31] MEDS: MEMANTINE 5MG TABLET (NAMENDA) PO SCH (09:36)
[2023-10-31] MEDS: ASPIRIN 81MG ENTERIC TABLET PO SCH (09:37)
[2023-10-31] MEDS: APIXABAN 5 MG TAB (ELIQUIS) PO SCH ×2 (09:37→21:44)
[2023-10-31] MEDS: PROPAFENONE 150 MG TAB PO SCH ×2 (09:37→21:44)
[2023-10-31] MEDS: CARVedilol 6.25 MG TAB PO SCH ×2 (09:37→21:43)
[2023-10-31] MEDS: PANTOPRAZOLE 40MG TAB (PROTONIX) PO SCH (09:37)
[2023-10-31] MEDS: LACTIC ACID 12% LOTION 225 GM BTL TOP SCH (09:39)
[2023-10-31] MEDS: SERTRALINE HCL 25 MG TABLET PO SCH (21:44)
[2023-10-31] MEDS: ATORVASTATIN 10 MG TAB PO SCH (21:44)
[2023-10-31] MEDS: RALOXIFENE 60 MG PO SCH (21:45)
[2023-11-01] VITALS (22 sets, daily range): BP systolic 100–136; BP diastolic 56–66; TEMP 96.6–97.6; O2SAT 91–97
[2023-11-01 05:20] LABS: BASO # 0.1 10^3/uL (0.0-0.2); BASO % 0.7 % (0.0-1.0); EOS # 0.1 10^3/uL (0.0-0.5); EOS % 1.1 % (0.0-3.0); HEMATOCRIT 33.9 % (36.0-47.0); HEMOGLOBIN 10.2 g/dl (12.0-15.5); LYMPH % 9.1 % (24.0-44.0); MEAN CORPUSCULAR HEMOGLOBIN 28.5 pg (27.0-33.0); MEAN CORPUSCULAR HGB CONC 30.1 g/dl (32.0-36.5); MEAN CORPUSCULAR VOLUME 94.7 fl (80.0-96.0); MONO # 1.1 10^3/uL (0.0-0.8); MONO % 9.9 % (2.0-8.0); NEUTROPHILS # 8.4 10^3/uL (1.5-8.5); NEUTROPHILS % 78.4 % (36.0-66.0); PLATELET COUNT, AUTOMATED 466 10^3/uL (150-450); RED BLOOD COUNT 3.58 10^6/uL (4.00-5.40); WHITE BLOOD COUNT 10.7 10^3/uL (4.0-10.0)
[2023-11-01 05:53] LABS: CALCIUM LEVEL 8.1 MG/DL (8.3-10.6); CREATININE FOR GFR 3.24 MG/DL (0.55-1.30); GLOMERULAR FILTRATION RATE 14.9 (>39); POTASSIUM SERUM 4.2 MMOL/L (3.5-5.1)
[2023-11-01] MEDS ORDERED: LIDOCAINE 1% SDV 5ML VIAL SC PRN (07:10)
[2023-11-01] MEDS ORDERED: HEPARIN 1,000UNITS/ML 10ML VIAL (FOR RADIOLOGY & DIALYSIS ONLY) IV PRN (07:10)
[2023-11-01] MEDS ORDERED: SODIUM CHLORIDE 0.9% 1000ML IV PRN (07:10)
[2023-11-01] MEDS ORDERED: HEPARIN 1,000UNITS/ML 10ML VIAL (FOR RADIOLOGY & DIALYSIS ONLY) XX SCH (07:10)
[2023-11-01] MEDS: DARBEPOETIN 100MCG/0.5ML *DIALYSIS* SYRINGE IV SCH (09:01)
[2023-11-01] MEDS: CINACALCET 30 MG TAB (SENSIPAR) PO SCH (12:03)
[2023-11-01] MEDS: MEMANTINE 5MG TABLET (NAMENDA) PO SCH (12:03)
[2023-11-01] MEDS: APIXABAN 5 MG TAB (ELIQUIS) PO SCH ×2 (12:03→21:01)
[2023-11-01] MEDS: buPROPion 100 MG TAB PO SCH ×2 (12:04→21:02)
[2023-11-01] MEDS: PANTOPRAZOLE 40MG TAB (PROTONIX) PO SCH (12:04)
[2023-11-01] MEDS: CARVedilol 6.25 MG TAB PO SCH ×2 (12:05→21:09)
[2023-11-01] MEDS: ASPIRIN 81MG ENTERIC TABLET PO SCH (12:05)
[2023-11-01] MEDS: PROPAFENONE 150 MG TAB PO SCH ×2 (12:06→21:01)
[2023-11-01] MEDS: LACTIC ACID 12% LOTION 225 GM BTL TOP SCH (12:07)
[2023-11-01] MEDS: COLCHICINE 0.6 MG TABLET PO SCH (12:10)
[2023-11-01] MEDS ORDERED: MAALOX 30 ML SUSP *UDC PO PRN (19:15)
[2023-11-01 20:02] LABS: CK-MB VALUE MASS < 1.0 NG/ML (<3.6); CPK CREATINE PHOSPHOKINASE 20 U/L (34-145)
[2023-11-01] MEDS: ATORVASTATIN 10 MG TAB PO SCH (21:01)
[2023-11-01] MEDS: SERTRALINE HCL 25 MG TABLET PO SCH (21:02)
[2023-11-01] MEDS: RALOXIFENE 60 MG PO SCH (21:03)
[2023-11-02] VITALS (28 sets, daily range): BP systolic 90–126; BP diastolic 52–69; TEMP 96.6–96.9; O2SAT 89–98
[2023-11-02 04:20] LABS: BASO # 0.1 10^3/uL (0.0-0.2); BASO % 0.7 % (0.0-1.0); EOS # 0.1 10^3/uL (0.0-0.5); EOS % 1.1 % (0.0-3.0); HEMATOCRIT 30.5 % (36.0-47.0); HEMOGLOBIN 9.1 g/dl (12.0-15.5); LYMPH # 1.1 10^3/uL (1.5-5.0); LYMPH % 9.2 % (24.0-44.0); MEAN CORPUSCULAR HEMOGLOBIN 28.4 pg (27.0-33.0); MEAN CORPUSCULAR HGB CONC 29.8 g/dl (32.0-36.5); MEAN CORPUSCULAR VOLUME 95.3 fl (80.0-96.0); MONO # 1.2 10^3/uL (0.0-0.8); MONO % 10.1 % (2.0-8.0); NEUTROPHILS # 9.1 10^3/uL (1.5-8.5); NEUTROPHILS % 77.9 % (36.0-66.0); PLATELET COUNT, AUTOMATED 440 10^3/uL (150-450); WHITE BLOOD COUNT 11.7 10^3/uL (4.0-10.0)
[2023-11-02 04:49] LABS: CALCIUM LEVEL 8.1 MG/DL (8.3-10.6); CREATININE FOR GFR 3.23 MG/DL (0.55-1.30); POTASSIUM SERUM 4.4 MMOL/L (3.5-5.1)
[2023-11-02] MEDS: PROPAFENONE 150 MG TAB PO SCH ×2 (09:51→22:10)
[2023-11-02] MEDS: MEMANTINE 5MG TABLET (NAMENDA) PO SCH (09:52)
[2023-11-02] MEDS: buPROPion 100 MG TAB PO SCH ×2 (09:52→22:05)
[2023-11-02] MEDS: ASPIRIN 81MG ENTERIC TABLET PO SCH (09:52)
[2023-11-02] MEDS: PANTOPRAZOLE 40MG TAB (PROTONIX) PO SCH (09:52)
[2023-11-02] MEDS: APIXABAN 5 MG TAB (ELIQUIS) PO SCH ×2 (09:53→22:04)
[2023-11-02] MEDS: CALCITRIOL 0.25 MCG CAP (S0169) PO SCH (09:53)
[2023-11-02] MEDS: CARVedilol 6.25 MG TAB PO SCH ×2 (09:54→21:00)
[2023-11-02] MEDS: LACTIC ACID 12% LOTION 225 GM BTL TOP SCH (09:59)
[2023-11-02] MEDS: RALOXIFENE 60 MG PO SCH (22:05)
[2023-11-02] MEDS: ATORVASTATIN 10 MG TAB PO SCH (22:05)
[2023-11-02] MEDS: SERTRALINE HCL 25 MG TABLET PO SCH (22:05)
[2023-11-03] VITALS (17 sets, daily range): BP systolic 80–119; BP diastolic 50–74; TEMP 96.8–97.3; O2SAT 95–98
[2023-11-03 02:45] LABS: BLOOD UREA NITROGEN 24 MG/DL (9-23); CALCIUM LEVEL 8.4 MG/DL (8.3-10.6); CARBON DIOXIDE LEVEL 23 MMOL/L (20-31); CHLORIDE LEVEL 99 MMOL/L (98-107); CREATININE FOR GFR 4.44 MG/DL (0.55-1.30); GLOMERULAR FILTRATION RATE 10.4 (>39); GLUCOSE, FASTING 83 MG/DL (74-106); SODIUM LEVEL 130 MMOL/L (136-145)
[2023-11-03 04:59] LABS: HEMATOCRIT 29.3 % (36.0-47.0); HEMOGLOBIN 8.8 g/dl (12.0-15.5); MEAN CORPUSCULAR HEMOGLOBIN 28.4 pg (27.0-33.0); MEAN CORPUSCULAR VOLUME 94.5 fl (80.0-96.0); PLATELET COUNT, AUTOMATED 467 10^3/uL (150-450)
[2023-11-03 05:22] LABS: CALCIUM LEVEL 8.1 MG/DL (8.3-10.6); CREATININE FOR GFR 4.59 MG/DL (0.55-1.30); PHOSPHORUS LEVEL 2.5 MG/DL (2.4-5.1); POTASSIUM SERUM 4.4 MMOL/L (3.5-5.1)
[2023-11-03] MEDS: ASPIRIN 81MG ENTERIC TABLET PO SCH (06:31)
[2023-11-03] MEDS ORDERED: LIDOCAINE 1% SDV 5ML VIAL SC PRN (06:50)
[2023-11-03] MEDS ORDERED: HEPARIN 1,000UNITS/ML 10ML VIAL (FOR RADIOLOGY & DIALYSIS ONLY) IV PRN (06:50)
[2023-11-03] MEDS ORDERED: HEPARIN 1,000UNITS/ML 10ML VIAL (FOR RADIOLOGY & DIALYSIS ONLY) XX SCH (06:50)
[2023-11-03] MEDS ORDERED: SODIUM CHLORIDE 0.9% 1000ML IV PRN (06:50)
[2023-11-03 08:16] LABS: PROCALCITONIN 0.45 ng/ml
[2023-11-03 08:17] LABS: ERYTHROCYTE SEDIMENTATION RATE 100 mm/hr (0-30)
[2023-11-03] MEDS: COLCHICINE 0.6 MG TABLET PO SCH (13:12)
[2023-11-03] MEDS: buPROPion 100 MG TAB PO SCH ×2 (13:12→20:50)
[2023-11-03] MEDS: PROPAFENONE 150 MG TAB PO SCH ×2 (13:12→20:50)
[2023-11-03] MEDS: CINACALCET 30 MG TAB (SENSIPAR) PO SCH (13:12)
[2023-11-03] MEDS: CALCITRIOL 0.25 MCG CAP (S0169) PO SCH (13:13)
[2023-11-03] MEDS: APIXABAN 5 MG TAB (ELIQUIS) PO SCH ×2 (13:13→20:49)
[2023-11-03] MEDS: MEMANTINE 5MG TABLET (NAMENDA) PO SCH (13:13)
[2023-11-03] MEDS: PANTOPRAZOLE 40MG TAB (PROTONIX) PO SCH (13:13)
[2023-11-03] MEDS: CARVedilol 6.25 MG TAB PO SCH ×2 (13:13→20:49)
[2023-11-03] MEDS: PERCOCET 5MG/325MG TAB PO PRN (13:13)
[2023-11-03] MEDS: LACTIC ACID 12% LOTION 225 GM BTL TOP SCH (13:14)
[2023-11-03] MEDS: RALOXIFENE 60 MG PO SCH (20:50)
[2023-11-03] MEDS: SERTRALINE HCL 25 MG TABLET PO SCH (20:50)
[2023-11-03] MEDS: ATORVASTATIN 10 MG TAB PO SCH (20:50)
[2023-11-04] VITALS (7 sets, daily range): BP systolic 96–116; BP diastolic 52–67; TEMP 96.9–98; O2SAT 96–97
[2023-11-04] MEDS ORDERED: SODIUM CHLORIDE 0.9% 1000ML IV PRN (06:00)
[2023-11-04 06:35] LABS: HEMATOCRIT 31.1 % (36.0-47.0); HEMOGLOBIN 9.4 g/dl (12.0-15.5); MEAN CORPUSCULAR HEMOGLOBIN 28.5 pg (27.0-33.0); MEAN CORPUSCULAR HGB CONC 30.2 g/dl (32.0-36.5); MEAN CORPUSCULAR VOLUME 94.2 fl (80.0-96.0); PLATELET COUNT, AUTOMATED 492 10^3/uL (150-450); WHITE BLOOD COUNT 9.6 10^3/uL (4.0-10.0)
[2023-11-04 07:01] LABS: ALBUMIN 2.1 G/DL (3.2-5.2); CALCIUM LEVEL 8.3 MG/DL (8.3-10.6); CREATININE FOR GFR 3.54 MG/DL (0.55-1.30); GLOMERULAR FILTRATION RATE 13.5 (>39); PHOSPHORUS LEVEL 2.9 MG/DL (2.4-5.1); POTASSIUM SERUM 4.5 MMOL/L (3.5-5.1)
[2023-11-04] MEDS: PANTOPRAZOLE 40MG TAB (PROTONIX) PO SCH (08:02)
[2023-11-04] MEDS: APIXABAN 5 MG TAB (ELIQUIS) PO SCH ×2 (08:02→20:58)
[2023-11-04] MEDS: buPROPion 100 MG TAB PO SCH ×2 (08:02→21:00)
[2023-11-04] MEDS: PROPAFENONE 150 MG TAB PO SCH ×2 (08:02→21:00)
[2023-11-04] MEDS: CARVedilol 6.25 MG TAB PO SCH ×2 (09:00→20:59)
[2023-11-04] MEDS: MEMANTINE 5MG TABLET (NAMENDA) PO SCH ×2 (13:42→20:59)
[2023-11-04] MEDS: LACTIC ACID 12% LOTION 225 GM BTL TOP SCH (13:42)
[2023-11-04] MEDS: ASPIRIN 81MG ENTERIC TABLET PO SCH (13:42)
[2023-11-04] MEDS: PERCOCET 5MG/325MG TAB PO PRN (17:57)
[2023-11-04] MEDS: RALOXIFENE 60 MG PO SCH (20:58)
[2023-11-04] MEDS: SERTRALINE HCL 25 MG TABLET PO SCH (20:59)
[2023-11-04] MEDS: ATORVASTATIN 10 MG TAB PO SCH (21:04)
[2023-11-05] VITALS (7 sets, daily range): BP systolic 112–126; BP diastolic 53–68; TEMP 96.8–97.8; O2SAT 96–98
[2023-11-05] MEDS: PROPAFENONE 150 MG TAB PO SCH ×2 (08:47→21:22)
[2023-11-05] MEDS: ASPIRIN 81MG ENTERIC TABLET PO SCH (08:47)
[2023-11-05] MEDS: PANTOPRAZOLE 40MG TAB (PROTONIX) PO SCH (08:47)
[2023-11-05] MEDS: CARVedilol 6.25 MG TAB PO SCH ×2 (08:47→21:21)
[2023-11-05] MEDS: buPROPion 100 MG TAB PO SCH ×2 (08:47→21:22)
[2023-11-05] MEDS: MEMANTINE 5MG TABLET (NAMENDA) PO SCH ×2 (08:47→21:17)
[2023-11-05] MEDS: APIXABAN 5 MG TAB (ELIQUIS) PO SCH ×2 (08:47→21:17)
[2023-11-05] MEDS: LACTIC ACID 12% LOTION 225 GM BTL TOP SCH (08:48)
[2023-11-05] MEDS: SERTRALINE HCL 25 MG TABLET PO SCH (21:17)
[2023-11-05] MEDS: ATORVASTATIN 10 MG TAB PO SCH (21:17)
[2023-11-05] MEDS: RALOXIFENE 60 MG PO SCH (21:23)
[2023-11-05] MEDS ORDERED: PILL CUTTER 1 EACH XX ONE (21:27)
[2023-11-06] VITALS (7 sets, daily range): BP systolic 91–127; BP diastolic 52–72; TEMP 97–98.2; O2SAT 94–99
[2023-11-06] MEDS ORDERED: SODIUM CHLORIDE 0.9% 1000ML IV PRN (06:00)
[2023-11-06] MEDS ORDERED: LIDOCAINE 1% SDV 5ML VIAL SC PRN (06:00)
[2023-11-06] MEDS: APIXABAN 5 MG TAB (ELIQUIS) PO SCH ×2 (06:04→21:15)
[2023-11-06] MEDS: PROPAFENONE 150 MG TAB PO SCH ×2 (06:04→21:21)
[2023-11-06] MEDS: buPROPion 100 MG TAB PO SCH ×2 (06:05→21:18)
[2023-11-06] MEDS: PANTOPRAZOLE 40MG TAB (PROTONIX) PO SCH (06:05)
[2023-11-06] MEDS: CARVedilol 6.25 MG TAB PO SCH ×2 (13:30→21:16)
[2023-11-06] MEDS: COLCHICINE 0.6 MG TABLET PO SCH (13:30)
[2023-11-06] MEDS: CALCITRIOL 0.25 MCG CAP (S0169) PO SCH (13:30)
[2023-11-06] MEDS: ASPIRIN 81MG ENTERIC TABLET PO SCH (13:30)
[2023-11-06] MEDS: CINACALCET 30 MG TAB (SENSIPAR) PO SCH (13:30)
[2023-11-06] MEDS: LACTIC ACID 12% LOTION 225 GM BTL TOP SCH (13:31)
[2023-11-06] MEDS: MEMANTINE 5MG TABLET (NAMENDA) PO SCH ×2 (13:31→21:20)
[2023-11-06] MEDS: ACETAMINOPHEN TAB 650MG DOSE (2X325MG) PO PRN (13:45)
[2023-11-06] MEDS ORDERED: CHLORASEPTIC SPRAY MT PRN (14:10)
[2023-11-06] MEDS: RALOXIFENE 60 MG PO SCH (21:14)
[2023-11-06] MEDS: SERTRALINE HCL 25 MG TABLET PO SCH (21:15)
[2023-11-06] MEDS: ATORVASTATIN 10 MG TAB PO SCH (21:16)
[2023-11-06] MEDS ORDERED: RAMELTEON 8 MG TAB (ROZEREM) PO ONE (21:40)
[2023-11-06] MEDS: ONDANSETRON 4MG 2ML VIAL IV PRN (23:55)
[2023-11-07 03:18] VITALS: BP 101/58; TEMP 97; O2SAT 97
[2023-11-07 07:06] LABS: HEMATOCRIT 30.2 % (36.0-47.0); HEMOGLOBIN 9.1 g/dl (12.0-15.5); MEAN CORPUSCULAR HEMOGLOBIN 28.3 pg (27.0-33.0); MEAN CORPUSCULAR HGB CONC 30.1 g/dl (32.0-36.5); MEAN CORPUSCULAR VOLUME 93.8 fl (80.0-96.0); PLATELET COUNT, AUTOMATED 414 10^3/uL (150-450); RED BLOOD COUNT 3.22 10^6/uL (4.00-5.40); WHITE BLOOD COUNT 10.4 10^3/uL (4.0-10.0)
[2023-11-07 07:29] LABS: CALCIUM LEVEL 7.7 MG/DL (8.3-10.6); CREATININE FOR GFR 3.29 MG/DL (0.55-1.30); GLOMERULAR FILTRATION RATE 14.6 (>39); MAGNESIUM LEVEL 1.5 MG/DL (1.8-2.4); POTASSIUM SERUM 3.9 MMOL/L (3.5-5.1)
[2023-11-07 08:40] VITALS: BP 114/64; TEMP 97; O2SAT 98
[2023-11-07] MEDS: buPROPion 100 MG TAB PO SCH ×2 (09:44→21:30)
[2023-11-07] MEDS: ASPIRIN 81MG ENTERIC TABLET PO SCH (09:44)
[2023-11-07] MEDS: PANTOPRAZOLE 40MG TAB (PROTONIX) PO SCH (09:44)
[2023-11-07] MEDS: APIXABAN 5 MG TAB (ELIQUIS) PO SCH (09:45)
[2023-11-07] MEDS: MAGNESIUM OXIDE 400MG TAB (MAG-OX) PO SCH ×4 (09:45→21:30)
[2023-11-07] MEDS: PROPAFENONE 150 MG TAB PO SCH ×2 (09:48→21:30)
[2023-11-07] MEDS: MEMANTINE 5MG TABLET (NAMENDA) PO SCH ×2 (09:48→21:30)
[2023-11-07] MEDS: CARVedilol 6.25 MG TAB PO SCH ×2 (09:48→21:00)
[2023-11-07] MEDS: LACTIC ACID 12% LOTION 225 GM BTL TOP SCH (09:49)
[2023-11-07] MEDS: ONDANSETRON 4MG 2ML VIAL IV PRN (12:14)
[2023-11-07 12:44] VITALS: BP 95/51; TEMP 97.1; O2SAT 98
[2023-11-07 16:07] VITALS: BP 112/56; TEMP 97.3; O2SAT 95
[2023-11-07 18:47] VITALS: BP 102/57; TEMP 97.9; O2SAT 98
[2023-11-07 20:36] VITALS: BP 94/50; TEMP 97.7; O2SAT 97
[2023-11-07] MEDS: SERTRALINE HCL 25 MG TABLET PO SCH (21:30)
[2023-11-07] MEDS: RALOXIFENE 60 MG PO SCH (21:30)
[2023-11-07] MEDS: ATORVASTATIN 10 MG TAB PO SCH (21:30)
[2023-11-07] MEDS ORDERED: MAG SULF 1GM/100ML (MAG RUN) 1 GM in IV 1 EA IV ONE (22:00)
[2023-11-08] MEDS ORDERED: SODIUM CHLORIDE 0.9% 1000ML IV PRN (06:00)
[2023-11-08] MEDS ORDERED: LIDOCAINE 1% SDV 5ML VIAL SC PRN (06:00)
[2023-11-08] MEDS: buPROPion 100 MG TAB PO SCH ×2 (06:26→20:24)
[2023-11-08] MEDS: PROPAFENONE 150 MG TAB PO SCH ×2 (06:26→20:24)
[2023-11-08] MEDS: PANTOPRAZOLE 40MG TAB (PROTONIX) PO SCH (06:26)
[2023-11-08] MEDS: DARBEPOETIN 100MCG/0.5ML *DIALYSIS* SYRINGE IV SCH (08:43)
[2023-11-08 12:00] VITALS: BP 120/58; TEMP 97.7; O2SAT 96
[2023-11-08] MEDS: MAGNESIUM OXIDE 400MG TAB (MAG-OX) PO SCH ×3 (12:50→20:24)
[2023-11-08] MEDS: CARVedilol 6.25 MG TAB PO SCH ×2 (12:50→20:24)
[2023-11-08] MEDS: CINACALCET 30 MG TAB (SENSIPAR) PO SCH (12:51)
[2023-11-08] MEDS: CALCITRIOL 0.25 MCG CAP (S0169) PO SCH (12:51)
[2023-11-08] MEDS: MEMANTINE 5MG TABLET (NAMENDA) PO SCH ×2 (12:52→20:25)
[2023-11-08] MEDS: ASPIRIN 81MG ENTERIC TABLET PO SCH (12:52)
[2023-11-08] MEDS: COLCHICINE 0.6 MG TABLET PO SCH (12:52)
[2023-11-08] MEDS: LACTIC ACID 12% LOTION 225 GM BTL TOP SCH (12:53)
[2023-11-08] MEDS: RALOXIFENE 60 MG PO SCH (20:24)
[2023-11-08] MEDS: ATORVASTATIN 10 MG TAB PO SCH (20:24)
[2023-11-08] MEDS: SERTRALINE HCL 25 MG TABLET PO SCH (20:25)
[2023-11-09 06:19] VITALS: BP 102/58; TEMP 97.5; O2SAT 97
[2023-11-09] MEDS: buPROPion 100 MG TAB PO SCH ×2 (08:40→21:42)
[2023-11-09] MEDS: ASPIRIN 81MG ENTERIC TABLET PO SCH (08:41)
[2023-11-09] MEDS: MEMANTINE 5MG TABLET (NAMENDA) PO SCH ×2 (08:41→21:42)
[2023-11-09] MEDS: PROPAFENONE 150 MG TAB PO SCH ×2 (08:41→21:42)
[2023-11-09] MEDS: PANTOPRAZOLE 40MG TAB (PROTONIX) PO SCH (08:42)
[2023-11-09] MEDS: CARVedilol 6.25 MG TAB PO SCH ×2 (08:42→21:43)
[2023-11-09] MEDS: LACTIC ACID 12% LOTION 225 GM BTL TOP SCH (08:43)
[2023-11-09] MEDS: ATORVASTATIN 10 MG TAB PO SCH (21:42)
[2023-11-09] MEDS: APIXABAN 5 MG TAB (ELIQUIS) PO SCH (21:42)
[2023-11-09] MEDS: SERTRALINE HCL 25 MG TABLET PO SCH (21:42)
[2023-11-09] MEDS: MIRTAZAPINE 7.5MG PER 1/2 TABLET PO SCH (21:42)
[2023-11-09] MEDS: RALOXIFENE 60 MG PO SCH (21:43)
[2023-11-10 05:18] VITALS: BP 102/64; TEMP 97.7; O2SAT 98
[2023-11-10] MEDS ORDERED: SODIUM CHLORIDE 0.9% 1000ML IV PRN (06:00)
[2023-11-10] MEDS ORDERED: LIDOCAINE 1% SDV 5ML VIAL SC PRN (06:00)
[2023-11-10] MEDS: buPROPion 100 MG TAB PO SCH ×2 (06:26→21:16)
[2023-11-10] MEDS: MEMANTINE 5MG TABLET (NAMENDA) PO SCH ×2 (06:26→21:17)
[2023-11-10] MEDS: PANTOPRAZOLE 40MG TAB (PROTONIX) PO SCH (06:26)
[2023-11-10] MEDS: PROPAFENONE 150 MG TAB PO SCH ×2 (06:26→21:16)
[2023-11-10] MEDS: CINACALCET 30 MG TAB (SENSIPAR) PO SCH (06:27)
[2023-11-10] MEDS: APIXABAN 5 MG TAB (ELIQUIS) PO SCH ×2 (06:28→21:17)
[2023-11-10] MEDS: COLCHICINE 0.6 MG TABLET PO SCH (06:28)
[2023-11-10] MEDS: CALCITRIOL 0.25 MCG CAP (S0169) PO SCH (06:28)
[2023-11-10] MEDS: ASPIRIN 81MG ENTERIC TABLET PO SCH (06:28)
[2023-11-10] MEDS: LACTIC ACID 12% LOTION 225 GM BTL TOP SCH (06:36)
[2023-11-10] MEDS: CARVedilol 6.25 MG TAB PO SCH ×2 (07:51→21:17)
[2023-11-10] MEDS: MIRTAZAPINE 7.5MG PER 1/2 TABLET PO SCH (21:16)
[2023-11-10] MEDS: ATORVASTATIN 10 MG TAB PO SCH (21:16)
[2023-11-10] MEDS: SERTRALINE HCL 25 MG TABLET PO SCH (21:17)
[2023-11-10] MEDS: RALOXIFENE 60 MG PO SCH (21:18)
[2023-11-11 04:50] VITALS: BP 111/68; TEMP 97.7; O2SAT 96
[2023-11-11] MEDS: MEMANTINE 5MG TABLET (NAMENDA) PO SCH ×2 (11:13→20:49)
[2023-11-11] MEDS: ACETAMINOPHEN TAB 650MG DOSE (2X325MG) PO PRN (11:13)
[2023-11-11] MEDS: PANTOPRAZOLE 40MG TAB (PROTONIX) PO SCH (11:13)
[2023-11-11] MEDS: APIXABAN 5 MG TAB (ELIQUIS) PO SCH ×2 (11:14→20:48)
[2023-11-11] MEDS: ASPIRIN 81MG ENTERIC TABLET PO SCH (11:14)
[2023-11-11] MEDS: buPROPion 100 MG TAB PO SCH ×2 (11:14→20:48)
[2023-11-11] MEDS: PROPAFENONE 150 MG TAB PO SCH ×2 (11:14→20:48)
[2023-11-11] MEDS: CARVedilol 6.25 MG TAB PO SCH ×2 (11:18→20:48)
[2023-11-11] MEDS: LACTIC ACID 12% LOTION 225 GM BTL TOP SCH (11:19)
[2023-11-11] MEDS: SERTRALINE HCL 25 MG TABLET PO SCH (20:48)
[2023-11-11] MEDS: MIRTAZAPINE 7.5MG PER 1/2 TABLET PO SCH (20:48)
[2023-11-11] MEDS: RALOXIFENE 60 MG PO SCH (20:49)
[2023-11-11] MEDS: ATORVASTATIN 10 MG TAB PO SCH (20:53)
[2023-11-12 04:40] VITALS: BP 102/61; TEMP 97.7; O2SAT 97
[2023-11-12] MEDS: CARVedilol 6.25 MG TAB PO SCH ×2 (09:00→20:48)
[2023-11-12] MEDS: MEMANTINE 5MG TABLET (NAMENDA) PO SCH ×2 (09:39→20:48)
[2023-11-12] MEDS: CALCITRIOL 0.25 MCG CAP (S0169) PO SCH (09:39)
[2023-11-12] MEDS: APIXABAN 5 MG TAB (ELIQUIS) PO SCH ×2 (09:39→20:48)
[2023-11-12] MEDS: ASPIRIN 81MG ENTERIC TABLET PO SCH (09:39)
[2023-11-12] MEDS: PROPAFENONE 150 MG TAB PO SCH ×2 (09:40→20:47)
[2023-11-12] MEDS: buPROPion 100 MG TAB PO SCH ×2 (09:40→20:48)
[2023-11-12] MEDS: LACTIC ACID 12% LOTION 225 GM BTL TOP SCH (09:40)
[2023-11-12] MEDS: PANTOPRAZOLE 40MG TAB (PROTONIX) PO SCH (09:40)
[2023-11-12] MEDS: ATORVASTATIN 10 MG TAB PO SCH (20:47)
[2023-11-12] MEDS: RALOXIFENE 60 MG PO SCH (20:47)
[2023-11-12] MEDS: SERTRALINE HCL 25 MG TABLET PO SCH (20:48)
[2023-11-12] MEDS: MIRTAZAPINE 7.5MG PER 1/2 TABLET PO SCH (20:48)
[2023-11-13] MEDS: ASPIRIN 81MG ENTERIC TABLET PO SCH (06:24)
[2023-11-13] MEDS: CINACALCET 30 MG TAB (SENSIPAR) PO SCH (06:24)
[2023-11-13] MEDS: PANTOPRAZOLE 40MG TAB (PROTONIX) PO SCH (06:24)
[2023-11-13] MEDS: COLCHICINE 0.6 MG TABLET PO SCH (06:24)
[2023-11-13] MEDS: PROPAFENONE 150 MG TAB PO SCH ×2 (06:24→20:33)
[2023-11-13] MEDS: APIXABAN 5 MG TAB (ELIQUIS) PO SCH ×2 (06:25→20:32)
[2023-11-13] MEDS: buPROPion 100 MG TAB PO SCH ×2 (06:25→20:32)
[2023-11-13] MEDS: MEMANTINE 5MG TABLET (NAMENDA) PO SCH ×2 (06:25→20:32)
[2023-11-13] MEDS: CARVedilol 6.25 MG TAB PO SCH ×2 (06:26→20:32)
[2023-11-13] MEDS: LACTIC ACID 12% LOTION 225 GM BTL TOP SCH (06:26)
[2023-11-13 06:27] VITALS: BP 120/70; TEMP 97.9; O2SAT 98
[2023-11-13] MEDS ORDERED: HEPARIN 1,000UNITS/ML 10ML VIAL (FOR RADIOLOGY & DIALYSIS ONLY) XX SCH (07:15)
[2023-11-13] MEDS ORDERED: SODIUM CHLORIDE 0.9% 1000ML IV PRN (07:15)
[2023-11-13] MEDS ORDERED: HEPARIN 1,000UNITS/ML 10ML VIAL (FOR RADIOLOGY & DIALYSIS ONLY) IV PRN (07:15)
[2023-11-13] MEDS ORDERED: LIDOCAINE 1% SDV 5ML VIAL SC PRN (07:15)
[2023-11-13 08:08] LABS: HEMATOCRIT 32.9 % (36.0-47.0); HEMOGLOBIN 9.9 g/dl (12.0-15.5); MEAN CORPUSCULAR HEMOGLOBIN 28.1 pg (27.0-33.0); MEAN CORPUSCULAR HGB CONC 30.1 g/dl (32.0-36.5); MEAN CORPUSCULAR VOLUME 93.5 fl (80.0-96.0); PLATELET COUNT, AUTOMATED 480 10^3/uL (150-450); RED BLOOD COUNT 3.52 10^6/uL (4.00-5.40); WHITE BLOOD COUNT 21.4 10^3/uL (4.0-10.0)
[2023-11-13 08:35] LABS: ALBUMIN 2.1 G/DL (3.2-5.2); CALCIUM LEVEL 8.4 MG/DL (8.3-10.6); CREATININE FOR GFR 6.27 MG/DL (0.55-1.30); PHOSPHORUS LEVEL 3.5 MG/DL (2.4-5.1); POTASSIUM SERUM 4.4 MMOL/L (3.5-5.1)
[2023-11-13] MEDS ORDERED: NS 500 ML IV ONE (12:55)
[2023-11-13 13:14] LABS: PTH INTACT 199.1 PG/ML (18.5-88.0)
[2023-11-13 13:37] LABS: PROCALCITONIN 0.37 ng/ml
[2023-11-13] MEDS: ATORVASTATIN 10 MG TAB PO SCH (20:32)
[2023-11-13] MEDS: SERTRALINE HCL 25 MG TABLET PO SCH (20:32)
[2023-11-13] MEDS: MIRTAZAPINE 7.5MG PER 1/2 TABLET PO SCH (20:32)
[2023-11-13] MEDS: PIPERACILLIN/TAZOBACTAM SOD 4.5 GM in D5W MINI-BAG PLUS 50 ML IV SCH (20:33)
[2023-11-13 20:34] VITALS: BP 106/64; TEMP 98.6
[2023-11-13] MEDS: RALOXIFENE 60 MG PO SCH (20:34)
[2023-11-13 21:56] VITALS: O2SAT 96
[2023-11-14 05:59] VITALS: BP 122/70; TEMP 98.1; O2SAT 96
[2023-11-14 06:59] LABS: BASO # 0.1 10^3/uL (0.0-0.2); BASO % 0.4 % (0.0-1.0); EOS % 0.3 % (0.0-3.0); HEMATOCRIT 32.3 % (36.0-47.0); HEMOGLOBIN 9.7 g/dl (12.0-15.5); LYMPH # 0.9 10^3/uL (1.5-5.0); LYMPH % 5.8 % (24.0-44.0); MEAN CORPUSCULAR HEMOGLOBIN 28.1 pg (27.0-33.0); MEAN CORPUSCULAR VOLUME 93.6 fl (80.0-96.0); MONO # 1.2 10^3/uL (0.0-0.8); MONO % 7.4 % (2.0-8.0); NEUTROPHILS # 13.5 10^3/uL (1.5-8.5); NEUTROPHILS % 85.4 % (36.0-66.0); PLATELET COUNT, AUTOMATED 445 10^3/uL (150-450); RED BLOOD COUNT 3.45 10^6/uL (4.00-5.40); WHITE BLOOD COUNT 15.8 10^3/uL (4.0-10.0)
[2023-11-14 07:30] LABS: CALCIUM LEVEL 8.4 MG/DL (8.3-10.6); CREATININE FOR GFR 4.59 MG/DL (0.55-1.30); POTASSIUM SERUM 4.2 MMOL/L (3.5-5.1)
[2023-11-14] MEDS: PIPERACILLIN/TAZOBACTAM SOD 4.5 GM in D5W MINI-BAG PLUS 50 ML IV SCH ×2 (09:43→20:43)
[2023-11-14] MEDS: buPROPion 100 MG TAB PO SCH ×2 (09:44→20:43)
[2023-11-14] MEDS: CALCITRIOL 0.25 MCG CAP (S0169) PO SCH (09:44)
[2023-11-14] MEDS: MEMANTINE 5MG TABLET (NAMENDA) PO SCH ×2 (09:44→20:44)
[2023-11-14] MEDS: PROPAFENONE 150 MG TAB PO SCH ×2 (09:44→20:43)
[2023-11-14] MEDS: ASPIRIN 81MG ENTERIC TABLET PO SCH (09:44)
[2023-11-14] MEDS: APIXABAN 5 MG TAB (ELIQUIS) PO SCH ×2 (09:44→20:44)
[2023-11-14] MEDS: PANTOPRAZOLE 40MG TAB (PROTONIX) PO SCH (09:44)
[2023-11-14] MEDS: CARVedilol 6.25 MG TAB PO SCH ×2 (09:45→20:45)
[2023-11-14] MEDS: LACTIC ACID 12% LOTION 225 GM BTL TOP SCH (09:46)
[2023-11-14] MEDS ORDERED: PILL CUTTER 1 EACH XX ONE (09:50)
[2023-11-14 14:00] VITALS: BP 111/63; TEMP 97.9; O2SAT 97
[2023-11-14 20:30] VITALS: BP 110/62; TEMP 97.9; O2SAT 98
[2023-11-14] MEDS: MIRTAZAPINE 7.5MG PER 1/2 TABLET PO SCH (20:43)
[2023-11-14] MEDS: RALOXIFENE 60 MG PO SCH (20:45)
[2023-11-14] MEDS: ATORVASTATIN 10 MG TAB PO SCH (20:45)
[2023-11-14] MEDS: SERTRALINE HCL 25 MG TABLET PO SCH (20:45)
[2023-11-15 05:40] VITALS: BP 107/60; TEMP 97.3; O2SAT 97
[2023-11-15] MEDS: PIPERACILLIN/TAZOBACTAM SOD 4.5 GM in D5W MINI-BAG PLUS 50 ML IV SCH ×2 (06:27→20:05)
[2023-11-15] MEDS: ASPIRIN 81MG ENTERIC TABLET PO SCH (06:27)
[2023-11-15] MEDS: buPROPion 100 MG TAB PO SCH ×2 (06:27→20:12)
[2023-11-15] MEDS: MEMANTINE 5MG TABLET (NAMENDA) PO SCH ×2 (06:27→20:07)
[2023-11-15] MEDS: PANTOPRAZOLE 40MG TAB (PROTONIX) PO SCH (06:28)
[2023-11-15] MEDS: CARVedilol 6.25 MG TAB PO SCH ×2 (06:28→20:08)
[2023-11-15] MEDS: APIXABAN 5 MG TAB (ELIQUIS) PO SCH ×2 (06:28→20:07)
[2023-11-15] MEDS: PROPAFENONE 150 MG TAB PO SCH ×2 (06:28→20:06)
[2023-11-15] MEDS ORDERED: HEPARIN 1,000UNITS/ML 10ML VIAL (FOR RADIOLOGY & DIALYSIS ONLY) XX SCH (07:05)
[2023-11-15] MEDS ORDERED: HEPARIN 1,000UNITS/ML 10ML VIAL (FOR RADIOLOGY & DIALYSIS ONLY) IV PRN (07:05)
[2023-11-15] MEDS ORDERED: SODIUM CHLORIDE 0.9% 1000ML IV PRN (07:05)
[2023-11-15] MEDS ORDERED: LIDOCAINE 1% SDV 5ML VIAL SC PRN (07:05)
[2023-11-15 08:55] LABS: BASO # 0.1 10^3/uL (0.0-0.2); BASO % 0.6 % (0.0-1.0); EOS # 0.1 10^3/uL (0.0-0.5); EOS % 0.6 % (0.0-3.0); HEMATOCRIT 29.6 % (36.0-47.0); LYMPH # 0.8 10^3/uL (1.5-5.0); LYMPH % 5.9 % (24.0-44.0); MEAN CORPUSCULAR HEMOGLOBIN 27.8 pg (27.0-33.0); MEAN CORPUSCULAR HGB CONC 30.4 g/dl (32.0-36.5); MEAN CORPUSCULAR VOLUME 91.4 fl (80.0-96.0); MONO # 0.7 10^3/uL (0.0-0.8); MONO % 5.5 % (2.0-8.0); NEUTROPHILS % 86.7 % (36.0-66.0); PLATELET COUNT, AUTOMATED 433 10^3/uL (150-450); RED BLOOD COUNT 3.24 10^6/uL (4.00-5.40); WHITE BLOOD COUNT 12.6 10^3/uL (4.0-10.0)
[2023-11-15] MEDS: LACTIC ACID 12% LOTION 225 GM BTL TOP SCH (09:00)
[2023-11-15] MEDS: DARBEPOETIN 100MCG/0.5ML *DIALYSIS* SYRINGE IV SCH (09:05)
[2023-11-15 09:19] LABS: CALCIUM LEVEL 8.5 MG/DL (8.3-10.6); CREATININE FOR GFR 5.4 MG/DL (0.55-1.30); GLOMERULAR FILTRATION RATE 8.3 (>39)
[2023-11-15 14:00] VITALS: BP 111/64; TEMP 97.9; O2SAT 96
[2023-11-15 18:54] VITALS: BP 109/62; TEMP 98.2; O2SAT 97
[2023-11-15] MEDS: ATORVASTATIN 10 MG TAB PO SCH (20:06)
[2023-11-15] MEDS: RALOXIFENE 60 MG PO SCH (20:06)
[2023-11-15] MEDS: MIRTAZAPINE 7.5MG PER 1/2 TABLET PO SCH (20:06)
[2023-11-15] MEDS: SERTRALINE HCL 25 MG TABLET PO SCH (20:07)
[2023-11-16 06:00] VITALS: BP 117/63; TEMP 98.1; O2SAT 97
[2023-11-16] MEDS: PIPERACILLIN/TAZOBACTAM SOD 4.5 GM in D5W MINI-BAG PLUS 50 ML IV SCH ×2 (09:57→20:16)
[2023-11-16] MEDS: PANTOPRAZOLE 40MG TAB (PROTONIX) PO SCH (10:00)
[2023-11-16] MEDS: ASPIRIN 81MG ENTERIC TABLET PO SCH (10:00)
[2023-11-16] MEDS: MEMANTINE 5MG TABLET (NAMENDA) PO SCH ×2 (10:01→20:14)
[2023-11-16] MEDS: CARVedilol 6.25 MG TAB PO SCH ×2 (10:01→20:29)
[2023-11-16] MEDS: CALCITRIOL 0.25 MCG CAP (S0169) PO SCH (10:01)
[2023-11-16] MEDS: LACTIC ACID 12% LOTION 225 GM BTL TOP SCH (10:02)
[2023-11-16] MEDS: buPROPion 100 MG TAB PO SCH ×2 (10:02→20:14)
[2023-11-16] MEDS: APIXABAN 5 MG TAB (ELIQUIS) PO SCH ×2 (10:02→20:15)
[2023-11-16] MEDS: PROPAFENONE 150 MG TAB PO SCH ×2 (10:02→20:16)
[2023-11-16 14:00] VITALS: BP_SYST 102; BP_SYST 124; BP_DIAS 62; BP_DIAS 69; TEMP 98.4; TEMP 98.5; O2SAT 92; O2SAT 93
[2023-11-16 20:12] VITALS: BP 102/57; TEMP 98.4
[2023-11-16] MEDS: ATORVASTATIN 10 MG TAB PO SCH (20:14)
[2023-11-16] MEDS: SERTRALINE HCL 25 MG TABLET PO SCH (20:14)
[2023-11-16] MEDS: MIRTAZAPINE 7.5MG PER 1/2 TABLET PO SCH (20:14)
[2023-11-16] MEDS: RALOXIFENE 60 MG PO SCH (20:15)
[2023-11-17 06:40] VITALS: BP 110/67; TEMP 97.9; O2SAT 96
[2023-11-17] MEDS: MEMANTINE 5MG TABLET (NAMENDA) PO SCH ×2 (06:47→20:18)
[2023-11-17] MEDS: PROPAFENONE 150 MG TAB PO SCH ×2 (06:47→20:15)
[2023-11-17] MEDS: ASPIRIN 81MG ENTERIC TABLET PO SCH (06:47)
[2023-11-17] MEDS: PANTOPRAZOLE 40MG TAB (PROTONIX) PO SCH (06:47)
[2023-11-17] MEDS: APIXABAN 5 MG TAB (ELIQUIS) PO SCH ×2 (06:48→20:20)
[2023-11-17] MEDS: CARVedilol 6.25 MG TAB PO SCH ×2 (06:48→20:20)
[2023-11-17] MEDS: LACTIC ACID 12% LOTION 225 GM BTL TOP SCH (06:49)
[2023-11-17] MEDS: buPROPion 100 MG TAB PO SCH ×2 (06:49→20:17)
[2023-11-17] MEDS ORDERED: HEPARIN 1,000UNITS/ML 10ML VIAL (FOR RADIOLOGY & DIALYSIS ONLY) IV PRN (07:05)
[2023-11-17] MEDS ORDERED: SODIUM CHLORIDE 0.9% 1000ML IV PRN (07:05)
[2023-11-17] MEDS ORDERED: LIDOCAINE 1% SDV 5ML VIAL SC PRN (07:05)
[2023-11-17] MEDS ORDERED: HEPARIN 1,000UNITS/ML 10ML VIAL (FOR RADIOLOGY & DIALYSIS ONLY) XX SCH (07:05)
[2023-11-17] MEDS: PIPERACILLIN/TAZOBACTAM SOD 4.5 GM in D5W MINI-BAG PLUS 50 ML IV SCH ×2 (13:20→20:07)
[2023-11-17 14:00] VITALS: BP 110/67; TEMP 98.6; O2SAT 97
[2023-11-17 16:27] LABS: BASO # 0.1 10^3/uL (0.0-0.2); BASO % 0.6 % (0.0-1.0); EOS # 0.1 10^3/uL (0.0-0.5); HEMATOCRIT 32.6 % (36.0-47.0); HEMOGLOBIN 9.8 g/dl (12.0-15.5); LYMPH # 0.5 10^3/uL (1.5-5.0); LYMPH % 5.4 % (24.0-44.0); MEAN CORPUSCULAR HEMOGLOBIN 27.6 pg (27.0-33.0); MEAN CORPUSCULAR HGB CONC 30.1 g/dl (32.0-36.5); MEAN CORPUSCULAR VOLUME 91.8 fl (80.0-96.0); MONO # 0.8 10^3/uL (0.0-0.8); MONO % 7.6 % (2.0-8.0); NEUTROPHILS # 8.3 10^3/uL (1.5-8.5); NEUTROPHILS % 84.5 % (36.0-66.0); PLATELET COUNT, AUTOMATED 336 10^3/uL (150-450); RED BLOOD COUNT 3.55 10^6/uL (4.00-5.40); WHITE BLOOD COUNT 9.9 10^3/uL (4.0-10.0)
[2023-11-17 18:39] VITALS: BP 111/65; TEMP 98.6; O2SAT 97
[2023-11-17] MEDS: SERTRALINE HCL 25 MG TABLET PO SCH (20:18)
[2023-11-17] MEDS: MIRTAZAPINE 15 MG TAB PO SCH (20:19)
[2023-11-17] MEDS: ATORVASTATIN 10 MG TAB PO SCH (20:19)
[2023-11-17 20:20] VITALS: BP 116/67; TEMP 98.1; O2SAT 92
[2023-11-17] MEDS: RALOXIFENE 60 MG PO SCH (20:21)
[2023-11-18 00:37] LABS: CREATININE FOR GFR 3.12 MG/DL (0.55-1.30); GLOMERULAR FILTRATION RATE 15.6 (>39); POTASSIUM SERUM 3.5 MMOL/L (3.5-5.1)
[2023-11-18 04:49] VITALS: BP 120/60; TEMP 97.9; O2SAT 98
[2023-11-18] MEDS: CARVedilol 6.25 MG TAB PO SCH ×2 (09:00→20:25)
[2023-11-18] MEDS: MEMANTINE 5MG TABLET (NAMENDA) PO SCH ×2 (09:18→20:24)
[2023-11-18] MEDS: PROPAFENONE 150 MG TAB PO SCH ×2 (09:18→20:21)
[2023-11-18] MEDS: CALCITRIOL 0.25 MCG CAP (S0169) PO SCH (09:18)
[2023-11-18] MEDS: ASPIRIN 81MG ENTERIC TABLET PO SCH (09:18)
[2023-11-18] MEDS: APIXABAN 5 MG TAB (ELIQUIS) PO SCH ×2 (09:19→20:25)
[2023-11-18] MEDS: buPROPion 100 MG TAB PO SCH ×2 (09:19→20:25)
[2023-11-18] MEDS: PANTOPRAZOLE 40MG TAB (PROTONIX) PO SCH (09:19)
[2023-11-18] MEDS: LACTIC ACID 12% LOTION 225 GM BTL TOP SCH (09:22)
[2023-11-18] MEDS: PIPERACILLIN/TAZOBACTAM SOD 4.5 GM in D5W MINI-BAG PLUS 50 ML IV SCH (09:23)
[2023-11-18 14:00] VITALS: BP 116/64; TEMP 98.1; O2SAT 98
[2023-11-18] MEDS: MIRTAZAPINE 15 MG TAB PO SCH (20:22)
[2023-11-18] MEDS: SERTRALINE HCL 25 MG TABLET PO SCH (20:23)
[2023-11-18] MEDS: ATORVASTATIN 10 MG TAB PO SCH (20:23)
[2023-11-18] MEDS: RALOXIFENE 60 MG PO SCH (20:27)
[2023-11-18 20:29] VITALS: BP 118/68; TEMP 98.1; O2SAT 98
[2023-11-19 06:19] VITALS: BP 119/58; TEMP 98.4; O2SAT 96
[2023-11-19] MEDS: PROPAFENONE 150 MG TAB PO SCH ×2 (09:55→20:43)
[2023-11-19] MEDS: APIXABAN 5 MG TAB (ELIQUIS) PO SCH ×2 (09:55→20:44)
[2023-11-19] MEDS: buPROPion 100 MG TAB PO SCH ×2 (09:55→20:44)
[2023-11-19] MEDS: MEMANTINE 5MG TABLET (NAMENDA) PO SCH ×2 (09:55→20:44)
[2023-11-19] MEDS: ASPIRIN 81MG ENTERIC TABLET PO SCH (09:55)
[2023-11-19] MEDS: LACTIC ACID 12% LOTION 225 GM BTL TOP SCH (09:56)
[2023-11-19] MEDS: CARVedilol 6.25 MG TAB PO SCH ×2 (09:56→20:44)
[2023-11-19] MEDS: PANTOPRAZOLE 40MG TAB (PROTONIX) PO SCH (09:56)
[2023-11-19] MEDS: RALOXIFENE 60 MG PO SCH (20:43)
[2023-11-19] MEDS: SERTRALINE HCL 25 MG TABLET PO SCH (20:44)
[2023-11-19] MEDS: ATORVASTATIN 10 MG TAB PO SCH (20:44)
[2023-11-19] MEDS: MIRTAZAPINE 15 MG TAB PO SCH (20:44)
[2023-11-20 05:16] VITALS: BP 128/65; TEMP 98.1; O2SAT 97
[2023-11-20] MEDS ORDERED: LIDOCAINE 1% SDV 5ML VIAL SC PRN (06:00)
[2023-11-20] MEDS ORDERED: SODIUM CHLORIDE 0.9% 1000ML IV PRN (06:00)
[2023-11-20] MEDS ORDERED: HEPARIN 1,000UNITS/ML 10ML VIAL (FOR RADIOLOGY & DIALYSIS ONLY) IV PRN (06:00)
[2023-11-20] MEDS: PANTOPRAZOLE 40MG TAB (PROTONIX) PO SCH (06:32)
[2023-11-20] MEDS: PROPAFENONE 150 MG TAB PO SCH ×2 (06:32→20:17)
[2023-11-20] MEDS: APIXABAN 5 MG TAB (ELIQUIS) PO SCH ×2 (06:32→20:18)
[2023-11-20] MEDS: MEMANTINE 5MG TABLET (NAMENDA) PO SCH ×2 (06:33→20:17)
[2023-11-20] MEDS: buPROPion 100 MG TAB PO SCH ×2 (06:33→20:18)
[2023-11-20] MEDS: ASPIRIN 81MG ENTERIC TABLET PO SCH (06:33)
[2023-11-20] MEDS: CARVedilol 6.25 MG TAB PO SCH ×2 (06:34→20:21)
[2023-11-20] MEDS: LACTIC ACID 12% LOTION 225 GM BTL TOP SCH (06:35)
[2023-11-20] MEDS: CALCITRIOL 0.25 MCG CAP (S0169) PO SCH (06:43)
[2023-11-20 09:36] LABS: BASO # 0.1 10^3/uL (0.0-0.2); BASO % 0.5 % (0.0-1.0); EOS # 0.2 10^3/uL (0.0-0.5); EOS % 1.9 % (0.0-3.0); HEMATOCRIT 27.9 % (36.0-47.0); HEMOGLOBIN 8.5 g/dl (12.0-15.5); LYMPH # 0.9 10^3/uL (1.5-5.0); LYMPH % 8.5 % (24.0-44.0); MEAN CORPUSCULAR HEMOGLOBIN 27.6 pg (27.0-33.0); MEAN CORPUSCULAR HGB CONC 30.5 g/dl (32.0-36.5); MEAN CORPUSCULAR VOLUME 90.6 fl (80.0-96.0); MONO % 8.7 % (2.0-8.0); NEUTROPHILS # 8.8 10^3/uL (1.5-8.5); NEUTROPHILS % 79.2 % (36.0-66.0); PLATELET COUNT, AUTOMATED 413 10^3/uL (150-450); RED BLOOD COUNT 3.08 10^6/uL (4.00-5.40); WHITE BLOOD COUNT 11.1 10^3/uL (4.0-10.0)
[2023-11-20 10:49] LABS: CALCIUM LEVEL 7.7 MG/DL (8.3-10.6); CREATININE FOR GFR 2.5 MG/DL (0.55-1.30); GLOMERULAR FILTRATION RATE 20.1 (>39); POTASSIUM SERUM 2.7 MMOL/L (3.5-5.1)
[2023-11-20] MEDS: RALOXIFENE 60 MG PO SCH (20:17)
[2023-11-20] MEDS: ATORVASTATIN 10 MG TAB PO SCH (20:17)
[2023-11-20] MEDS: MIRTAZAPINE 15 MG TAB PO SCH (20:18)
[2023-11-20] MEDS: SERTRALINE HCL 25 MG TABLET PO SCH (20:18)
[2023-11-21 04:25] VITALS: BP 124/64; TEMP 98.6; O2SAT 99
[2023-11-21] MEDS: MEMANTINE 5MG TABLET (NAMENDA) PO SCH ×2 (08:37→20:09)
[2023-11-21] MEDS: ASPIRIN 81MG ENTERIC TABLET PO SCH (08:37)
[2023-11-21] MEDS: PROPAFENONE 150 MG TAB PO SCH ×2 (08:37→20:08)
[2023-11-21] MEDS: CARVedilol 6.25 MG TAB PO SCH ×2 (08:38→20:08)
[2023-11-21] MEDS: buPROPion 100 MG TAB PO SCH ×2 (08:38→20:09)
[2023-11-21] MEDS: APIXABAN 5 MG TAB (ELIQUIS) PO SCH (08:38)
[2023-11-21] MEDS: PANTOPRAZOLE 40MG TAB (PROTONIX) PO SCH (08:39)
[2023-11-21] MEDS: LACTIC ACID 12% LOTION 225 GM BTL TOP SCH (08:39)
[2023-11-21 09:14] VITALS: BP 132/72; TEMP 98.1; O2SAT 97
[2023-11-21] MEDS: ATORVASTATIN 10 MG TAB PO SCH (20:08)
[2023-11-21] MEDS: MIRTAZAPINE 15 MG TAB PO SCH (20:08)
[2023-11-21] MEDS: RALOXIFENE 60 MG PO SCH (20:09)
[2023-11-21] MEDS: SERTRALINE HCL 25 MG TABLET PO SCH (20:09)
[2023-11-22 05:56] VITALS: BP 127/70; TEMP 98.2; O2SAT 98
[2023-11-22] MEDS ORDERED: LIDOCAINE 1% SDV 5ML VIAL SC PRN (06:00)
[2023-11-22] MEDS ORDERED: HEPARIN 1,000UNITS/ML 10ML VIAL (FOR RADIOLOGY & DIALYSIS ONLY) XX SCH (06:00)
[2023-11-22] MEDS ORDERED: SODIUM CHLORIDE 0.9% 1000ML IV PRN (06:00)
[2023-11-22] MEDS: PROPAFENONE 150 MG TAB PO SCH ×2 (06:31→20:15)
[2023-11-22] MEDS: PANTOPRAZOLE 40MG TAB (PROTONIX) PO SCH (06:31)
[2023-11-22] MEDS: ASPIRIN 81MG ENTERIC TABLET PO SCH (06:31)
[2023-11-22] MEDS: MEMANTINE 5MG TABLET (NAMENDA) PO SCH ×2 (06:31→20:15)
[2023-11-22] MEDS: CALCITRIOL 0.25 MCG CAP (S0169) PO SCH (06:31)
[2023-11-22] MEDS: buPROPion 100 MG TAB PO SCH ×2 (06:31→20:14)
[2023-11-22] MEDS: LACTIC ACID 12% LOTION 225 GM BTL TOP SCH (06:32)
[2023-11-22] MEDS: CARVedilol 6.25 MG TAB PO SCH ×2 (06:32→20:16)
[2023-11-22] MEDS: DARBEPOETIN 100MCG/0.5ML *DIALYSIS* SYRINGE IV SCH (08:31)
[2023-11-22] MEDS ORDERED: PILL CUTTER 1 EACH XX ONE (20:08)
[2023-11-22] MEDS: MIRTAZAPINE 15 MG TAB PO SCH (20:14)
[2023-11-22] MEDS: ATORVASTATIN 10 MG TAB PO SCH (20:14)
[2023-11-22] MEDS: SERTRALINE HCL 25 MG TABLET PO SCH (20:15)
[2023-11-22] MEDS: RALOXIFENE 60 MG PO SCH (20:16)
[2023-11-23 05:18] VITALS: BP 123/67; TEMP 98.4; O2SAT 93
[2023-11-23] MEDS: PANTOPRAZOLE 40MG TAB (PROTONIX) PO SCH (08:49)
[2023-11-23] MEDS: ASPIRIN 81MG ENTERIC TABLET PO SCH (08:49)
[2023-11-23] MEDS: MEMANTINE 5MG TABLET (NAMENDA) PO SCH ×2 (08:49→20:39)
[2023-11-23] MEDS: buPROPion 100 MG TAB PO SCH ×2 (08:49→20:39)
[2023-11-23] MEDS: PROPAFENONE 150 MG TAB PO SCH ×2 (08:51→20:40)
[2023-11-23] MEDS: CARVedilol 6.25 MG TAB PO SCH ×2 (08:51→20:40)
[2023-11-23] MEDS: LACTIC ACID 12% LOTION 225 GM BTL TOP SCH (08:52)
[2023-11-23] MEDS: ACETAMINOPHEN TAB 650MG DOSE (2X325MG) PO PRN (14:05)
[2023-11-23 17:53] VITALS: BP 101/65; TEMP 97.9; O2SAT 97
[2023-11-23 18:56] VITALS: BP 100/63; TEMP 98.6; O2SAT 97
[2023-11-23] MEDS: SERTRALINE HCL 25 MG TABLET PO SCH (20:39)
[2023-11-23] MEDS: MIRTAZAPINE 15 MG TAB PO SCH (20:39)
[2023-11-23] MEDS: RALOXIFENE 60 MG PO SCH (20:39)
[2023-11-23] MEDS: ATORVASTATIN 10 MG TAB PO SCH (20:39)
[2023-11-24] MEDS: CALCITRIOL 0.25 MCG CAP (S0169) PO SCH (04:52)
[2023-11-24] MEDS: MEMANTINE 5MG TABLET (NAMENDA) PO SCH ×2 (04:52→20:12)
[2023-11-24] MEDS: ASPIRIN 81MG ENTERIC TABLET PO SCH (04:52)
[2023-11-24] MEDS: PROPAFENONE 150 MG TAB PO SCH ×2 (04:53→20:11)
[2023-11-24] MEDS: buPROPion 100 MG TAB PO SCH ×2 (04:53→20:10)
[2023-11-24] MEDS: LACTIC ACID 12% LOTION 225 GM BTL TOP SCH (04:53)
[2023-11-24] MEDS: PANTOPRAZOLE 40MG TAB (PROTONIX) PO SCH (04:53)
[2023-11-24] MEDS: CARVedilol 6.25 MG TAB PO SCH ×2 (04:54→20:11)
[2023-11-24 06:00] VITALS: BP 127/68; TEMP 98.1; O2SAT 97
[2023-11-24] MEDS ORDERED: LIDOCAINE 1% SDV 5ML VIAL SC PRN (06:50)
[2023-11-24] MEDS ORDERED: HEPARIN 1,000UNITS/ML 10ML VIAL (FOR RADIOLOGY & DIALYSIS ONLY) XX SCH (06:50)
[2023-11-24] MEDS ORDERED: SODIUM CHLORIDE 0.9% 1000ML IV PRN (06:50)
[2023-11-24] MEDS ORDERED: HEPARIN 1,000UNITS/ML 10ML VIAL (FOR RADIOLOGY & DIALYSIS ONLY) IV PRN (06:50)
[2023-11-24 07:42] LABS: HEMATOCRIT 27.8 % (36.0-47.0); HEMOGLOBIN 8.3 g/dl (12.0-15.5); MEAN CORPUSCULAR HEMOGLOBIN 27.3 pg (27.0-33.0); MEAN CORPUSCULAR HGB CONC 29.9 g/dl (32.0-36.5); MEAN CORPUSCULAR VOLUME 91.4 fl (80.0-96.0); PLATELET COUNT, AUTOMATED 400 10^3/uL (150-450); RED BLOOD COUNT 3.04 10^6/uL (4.00-5.40); WHITE BLOOD COUNT 9.8 10^3/uL (4.0-10.0)
[2023-11-24] MEDS ORDERED: DARBEPOETIN 200MCG/0.4ML *DIALYSIS* SYRINGE IV SCH (08:15)
[2023-11-24 08:19] LABS: ALBUMIN 1.7 G/DL (3.2-5.2); CALCIUM LEVEL 7.3 MG/DL (8.3-10.6); CREATININE FOR GFR 4.58 MG/DL (0.55-1.30); PHOSPHORUS LEVEL 3.8 MG/DL (2.4-5.1); POTASSIUM SERUM 3.5 MMOL/L (3.5-5.1)
[2023-11-24 08:36] LABS: PERCENT SATURATION 13.3 % (13.2-45.0)
[2023-11-24] MEDS: APIXABAN 5 MG TAB (ELIQUIS) PO SCH ×2 (11:03→20:12)
[2023-11-24] MEDS: IRON SUCROSE 100MG 5ML VIAL IV SCH (11:13)
[2023-11-24 14:04] VITALS: BP 114/64; TEMP 96; O2SAT 94
[2023-11-24] MEDS: MIRTAZAPINE 15 MG TAB PO SCH (20:11)
[2023-11-24] MEDS: ATORVASTATIN 10 MG TAB PO SCH (20:12)
[2023-11-24] MEDS: RALOXIFENE 60 MG PO SCH (20:12)
[2023-11-24] MEDS: SERTRALINE HCL 25 MG TABLET PO SCH (20:12)
[2023-11-25 05:18] VITALS: BP 113/62; TEMP 98.4; O2SAT 97
[2023-11-25] MEDS: PANTOPRAZOLE 40MG TAB (PROTONIX) PO SCH (08:46)
[2023-11-25] MEDS: ASPIRIN 81MG ENTERIC TABLET PO SCH (08:46)
[2023-11-25] MEDS: APIXABAN 5 MG TAB (ELIQUIS) PO SCH ×2 (08:47→20:31)
[2023-11-25] MEDS: buPROPion 100 MG TAB PO SCH ×2 (08:47→20:32)
[2023-11-25] MEDS: MEMANTINE 5MG TABLET (NAMENDA) PO SCH ×2 (08:47→20:31)
[2023-11-25] MEDS: PROPAFENONE 150 MG TAB PO SCH ×2 (08:47→20:32)
[2023-11-25] MEDS: CARVedilol 6.25 MG TAB PO SCH ×2 (08:48→20:31)
[2023-11-25] MEDS: LACTIC ACID 12% LOTION 225 GM BTL TOP SCH (08:48)
[2023-11-25] MEDS: ATORVASTATIN 10 MG TAB PO SCH (20:31)
[2023-11-25] MEDS: SERTRALINE HCL 25 MG TABLET PO SCH (20:32)
[2023-11-25] MEDS: MIRTAZAPINE 15 MG TAB PO SCH (20:32)
[2023-11-25] MEDS: RALOXIFENE 60 MG PO SCH (20:32)
[2023-11-26 05:00] VITALS: BP 117/64; TEMP 98.1; O2SAT 97
[2023-11-26] MEDS ORDERED: PILL CUTTER 1 EACH XX ONE (09:01)
[2023-11-26] MEDS: PANTOPRAZOLE 40MG TAB (PROTONIX) PO SCH (09:05)
[2023-11-26] MEDS: MEMANTINE 5MG TABLET (NAMENDA) PO SCH ×2 (09:05→21:00)
[2023-11-26] MEDS: CALCITRIOL 0.25 MCG CAP (S0169) PO SCH (09:05)
[2023-11-26] MEDS: ASPIRIN 81MG ENTERIC TABLET PO SCH (09:05)
[2023-11-26] MEDS: PROPAFENONE 150 MG TAB PO SCH ×2 (09:06→21:00)
[2023-11-26] MEDS: buPROPion 100 MG TAB PO SCH ×2 (09:06→21:00)
[2023-11-26] MEDS: APIXABAN 5 MG TAB (ELIQUIS) PO SCH ×2 (09:07→21:00)
[2023-11-26] MEDS: CARVedilol 6.25 MG TAB PO SCH ×2 (09:07→21:00)
[2023-11-26] MEDS: LACTIC ACID 12% LOTION 225 GM BTL TOP SCH (09:10)
[2023-11-26] MEDS: RALOXIFENE 60 MG PO SCH (21:00)
[2023-11-26] MEDS: MIRTAZAPINE 15 MG TAB PO SCH (21:00)
[2023-11-26] MEDS: SERTRALINE HCL 25 MG TABLET PO SCH (21:00)
[2023-11-26] MEDS: ATORVASTATIN 10 MG TAB PO SCH (21:00)
[2023-11-27 05:20] VITALS: BP 119/65; TEMP 98.8; O2SAT 97
[2023-11-27] MEDS ORDERED: LIDOCAINE 1% SDV 5ML VIAL SC PRN (06:45)
[2023-11-27] MEDS ORDERED: HEPARIN 1,000UNITS/ML 10ML VIAL (FOR RADIOLOGY & DIALYSIS ONLY) XX SCH (06:45)
[2023-11-27] MEDS ORDERED: HEPARIN 1,000UNITS/ML 10ML VIAL (FOR RADIOLOGY & DIALYSIS ONLY) IV PRN (06:45)
[2023-11-27] MEDS ORDERED: SODIUM CHLORIDE 0.9% 1000ML IV PRN (06:45)
[2023-11-27] MEDS: APIXABAN 5 MG TAB (ELIQUIS) PO SCH ×2 (07:46→20:33)
[2023-11-27] MEDS: PROPAFENONE 150 MG TAB PO SCH ×2 (07:46→20:37)
[2023-11-27] MEDS: buPROPion 100 MG TAB PO SCH ×2 (07:46→20:32)
[2023-11-27] MEDS: PANTOPRAZOLE 40MG TAB (PROTONIX) PO SCH (07:47)
[2023-11-27] MEDS: LACTIC ACID 12% LOTION 225 GM BTL TOP SCH (07:47)
[2023-11-27] MEDS: MEMANTINE 5MG TABLET (NAMENDA) PO SCH ×2 (07:47→20:32)
[2023-11-27] MEDS: ASPIRIN 81MG ENTERIC TABLET PO SCH (07:47)
[2023-11-27] MEDS: CARVedilol 6.25 MG TAB PO SCH ×2 (07:47→20:32)
[2023-11-27] MEDS: IRON SUCROSE 100MG 5ML VIAL IV SCH (09:48)
[2023-11-27] MEDS: SERTRALINE HCL 25 MG TABLET PO SCH (20:32)
[2023-11-27] MEDS: ATORVASTATIN 10 MG TAB PO SCH ×2 (20:32→20:43)
[2023-11-27] MEDS: MIRTAZAPINE 15 MG TAB PO SCH ×2 (20:33→20:43)
[2023-11-27] MEDS: RALOXIFENE 60 MG PO SCH (20:41)
[2023-11-28 05:27] VITALS: BP 113/64; TEMP 98.6; O2SAT 96
[2023-11-28] MEDS: MEMANTINE 5MG TABLET (NAMENDA) PO SCH (09:47)
[2023-11-28] MEDS: PANTOPRAZOLE 40MG TAB (PROTONIX) PO SCH (09:47)
[2023-11-28] MEDS: ASPIRIN 81MG ENTERIC TABLET PO SCH (09:47)
[2023-11-28] MEDS: CALCITRIOL 0.25 MCG CAP (S0169) PO SCH (09:47)
[2023-11-28 09:48] VITALS: BP 122/59
[2023-11-28] MEDS: APIXABAN 5 MG TAB (ELIQUIS) PO SCH (09:48)
[2023-11-28] MEDS: PROPAFENONE 150 MG TAB PO SCH (09:48)
[2023-11-28] MEDS: CARVedilol 6.25 MG TAB PO SCH (09:48)
[2023-11-28] MEDS: buPROPion 100 MG TAB PO SCH (09:48)
[2023-11-28] MEDS: LACTIC ACID 12% LOTION 225 GM BTL TOP SCH (09:49)
[2023-11-28] MEDS ORDERED: MIRT-10 PO (10:42)
[2023-11-28] MEDS ORDERED: CARV6.25 PO (10:42)
[2023-11-28] MEDS ORDERED: MEMA10TA19 PO (10:42)
[2023-11-28] MEDS ORDERED: ASPI81TAEC PO (10:42)
== END 2023-11-28 13:31 | DRG 314 ==
LOC: M ED 09:56 → M ED INP 12:46 → M PCU 19:10 → M ICU 10-27 15:50 → M PCU 10-28 22:42 → M MSPAV 11-09 16:19
PROVIDERS: ADMIT Student in an Organized Health Care Education/Training Program; ATTEND Internal Medicine Nephrology
PROC: 5A1D70Z Performance of Urinary Filtration, Intermittent, Less than 6 Hours Per Day (ICD-10-PCS; 2023-10-24)
PROC: 0W9B30Z Drainage of Left Pleural Cavity with Drainage Device, Percutaneous Approach (ICD-10-PCS; 2023-10-28)
PROC: 0W993ZZ Drainage of Right Pleural Cavity, Percutaneous Approach (ICD-10-PCS; principal; 2023-11-23 10:30)
PROC: B246ZZZ Ultrasonography of Right and Left Heart (ICD-10-PCS; 2023-11-27)
DX: I31.39 Other pericardial effusion (noninflammatory) (principal); N18.6 End stage renal disease; J96.01 Acute respiratory failure with hypoxia; J18.9 Pneumonia, unspecified organism; E43 Unspecified severe protein-calorie malnutrition; I13.11 Hypertensive heart and chronic kidney disease without heart failure, with stage 5 chronic kidney disease, or end stage renal disease; N25.81 Secondary hyperparathyroidism of renal origin; I12.0 Hypertensive chronic kidney disease with stage 5 chronic kidney disease or end stage renal disease; J90 Pleural effusion, not elsewhere classified; E78.5 Hyperlipidemia, unspecified; I48.91 Unspecified atrial fibrillation; E11.22 Type 2 diabetes mellitus with diabetic chronic kidney disease; M81.0 Age-related osteoporosis without current pathological fracture; D63.1 Anemia in chronic kidney disease; R07.89 Other chest pain; F32.A Depression, unspecified; R54 Age-related physical debility; R26.89 Other abnormalities of gait and mobility; K21.9 Gastro-esophageal reflux disease without esophagitis; F03.90 Unspecified dementia, unspecified severity, without behavioral disturbance, psychotic disturbance, mood disturbance, and anxiety; R62.7 Adult failure to thrive; I45.10 Unspecified right bundle-branch block; E87.70 Fluid overload, unspecified; E87.5 Hyperkalemia; Z90.79 Acquired absence of other genital organ(s); Z96.641 Presence of right artificial hip joint; Z87.891 Personal history of nicotine dependence; K74.60 Unspecified cirrhosis of liver; Z98.42 Cataract extraction status, left eye; Z98.41 Cataract extraction status, right eye; Z79.01 Long term (current) use of anticoagulants; Z79.899 Other long term (current) drug therapy; Z88.2 Allergy status to sulfonamides; Z20.822 Contact with and (suspected) exposure to COVID-19; Z99.2 Dependence on renal dialysis; I08.2 Rheumatic disorders of both aortic and tricuspid valves

== ENCOUNTER → 2023-11-29 | Outpatient (REF) ==
[~2023-11-29] MED LIST changes: +ACET-907 PO; +ASPI81TAEC PO; +MEMA10TA19 PO; +MIRT-10 PO
[2023-11-29 11:15] LABS: HEMATOCRIT 31.8 % (36.0-47.0); HEMOGLOBIN 9.1 g/dl (12.0-15.5); MEAN CORPUSCULAR HEMOGLOBIN 27.1 pg (27.0-33.0); MEAN CORPUSCULAR HGB CONC 28.6 g/dl (32.0-36.5); MEAN CORPUSCULAR VOLUME 94.6 fl (80.0-96.0); PLATELET COUNT, AUTOMATED 505 10^3/uL (150-450); RED BLOOD COUNT 3.36 10^6/uL (4.00-5.40); WHITE BLOOD COUNT 20.1 10^3/uL (4.0-10.0)
[2023-11-29 11:36] LABS: CALCIUM LEVEL 9.2 MG/DL (8.3-10.6); CREATININE FOR GFR 4.63 MG/DL (0.55-1.30); GLOMERULAR FILTRATION RATE 9.9 (>39); POTASSIUM SERUM 4.4 MMOL/L (3.5-5.1)
== END ==
PROVIDERS: ATTEND Physician Assistant
DX: I10 Essential (primary) hypertension (principal)

== ENCOUNTER → 2023-11-30 | Outpatient (REF) | payer BC, MEDICARE | PROVIDERS: ATTEND Internal Medicine | DX: J90 Pleural effusion, not elsewhere classified (principal); J98.11 Atelectasis ==

== ENCOUNTER → 2023-11-30 | Outpatient (REF) ==
[2023-11-30 14:13] LABS: HEMOGLOBIN 8.9 g/dl (12.0-15.5); MEAN CORPUSCULAR HEMOGLOBIN 27.5 pg (27.0-33.0); MEAN CORPUSCULAR HGB CONC 28.7 g/dl (32.0-36.5); MEAN CORPUSCULAR VOLUME 95.7 fl (80.0-96.0); PLATELET COUNT, AUTOMATED 521 10^3/uL (150-450); RED BLOOD COUNT 3.24 10^6/uL (4.00-5.40); WHITE BLOOD COUNT 14.3 10^3/uL (4.0-10.0)
[2023-11-30 14:25] LABS: ERYTHROCYTE SEDIMENTATION RATE 103 mm/hr (0-30)
[2023-11-30 14:30] LABS: C REACTIVE PROTEIN QUANTITATIV 19.4 MG/DL (<1.0)
[2023-11-30 14:32] LABS: CALCIUM LEVEL 8.9 MG/DL (8.3-10.6); CREATININE FOR GFR 3.02 MG/DL (0.55-1.30); GLOMERULAR FILTRATION RATE 16.2 (>39); POTASSIUM SERUM 5.1 MMOL/L (3.5-5.1)
[2023-11-30 17:30] LABS: APPEARANCE, URINE CLEAR (CLEAR); BACTERIA, URINE AUTO NEGATIVE (NEGATIVE); BILIRUBIN, URINE AUTO NEGATIVE (NEGATIVE); BLOOD, URINE BLOOD 1+ (NEGATIVE); COLOR, URINE AMBER (YELLOW); GLUCOSE, URINE (UA) AUTO NEGATIVE (NEGATIVE); KETONE, URINE AUTO NEGATIVE (NEGATIVE); LEUKOCYTE ESTERASE, URINE AUTO NEGATIVE (NEGATIVE); NITRITE, URINE AUTO NEGATIVE (NEGATIVE); PROTEIN, URINE AUTO 1+ mg/dL (NEGATIVE); RBC, URINE AUTO 0 /HPF (0-3); SPECIFIC GRAVITY URINE AUTO 1.016 (1.002-1.035); SQUAMOUS EPITHELIAL CELL UR AU 0 /HPF (0-6); UROBILINOGEN, URINE AUTO 0.2 mg/dL (0.0-2.0); WBC, URINE AUTO 2 /HPF (0-3)
== END ==
PROVIDERS: ATTEND Physician Assistant
DX: D72.829 Elevated white blood cell count, unspecified (principal); N18.9 Chronic kidney disease, unspecified

== ENCOUNTER → 2023-12-04 | Outpatient (REF) ==
[2023-12-04 11:03] LABS: HEMATOCRIT 31.7 % (36.0-47.0); HEMOGLOBIN 9.1 g/dl (12.0-15.5); MEAN CORPUSCULAR HEMOGLOBIN 27.4 pg (27.0-33.0); MEAN CORPUSCULAR HGB CONC 28.7 g/dl (32.0-36.5); MEAN CORPUSCULAR VOLUME 95.5 fl (80.0-96.0); PLATELET COUNT, AUTOMATED 517 10^3/uL (150-450); RED BLOOD COUNT 3.32 10^6/uL (4.00-5.40)
[2023-12-04 11:26] LABS: CREATININE FOR GFR 4.7 MG/DL (0.55-1.30); GLOMERULAR FILTRATION RATE 9.7 (>39); POTASSIUM SERUM 4.6 MMOL/L (3.5-5.1)
== END ==
PROVIDERS: ATTEND Physician Assistant
DX: N39.0 Urinary tract infection, site not specified (principal)

== ENCOUNTER → 2023-12-06 | Outpatient (REF) ==
[2023-12-06 12:12] LABS: HEMATOCRIT 31.1 % (36.0-47.0); HEMOGLOBIN 8.9 g/dl (12.0-15.5); MEAN CORPUSCULAR HEMOGLOBIN 27.6 pg (27.0-33.0); MEAN CORPUSCULAR HGB CONC 28.6 g/dl (32.0-36.5); MEAN CORPUSCULAR VOLUME 96.3 fl (80.0-96.0); PLATELET COUNT, AUTOMATED 503 10^3/uL (150-450); RED BLOOD COUNT 3.23 10^6/uL (4.00-5.40); WHITE BLOOD COUNT 15.9 10^3/uL (4.0-10.0)
[2023-12-06 12:49] LABS: CALCIUM LEVEL 9.4 MG/DL (8.3-10.6); CREATININE FOR GFR 4.65 MG/DL (0.55-1.30); GLOMERULAR FILTRATION RATE 9.8 (>39); POTASSIUM SERUM 4.9 MMOL/L (3.5-5.1)
== END ==
PROVIDERS: ATTEND Physician Assistant
DX: I10 Essential (primary) hypertension (principal)